=== PATIENT | female | born 1955 | race Caucasian/White ===

== ENCOUNTER 2025-03-28 23:29 | Outpatient (BNV) | payer OTHER, SELFPAY | END 2025-04-02 08:28 | PROVIDERS: Admitting Provider Psychiatry & Neurology Psychiatry; Visit Provider Radiology Vascular & Interventional Radiology | DX: K80.20 Calculus of gallbladder without cholecystitis without obstruction (principal) | CPT/HCPCS: 76705 ==

== ENCOUNTER 2025-03-28 23:29 | Outpatient (BNV) | payer OTHER, SELFPAY | END 2025-05-07 15:55 | PROVIDERS: Admitting Provider Psychiatry & Neurology Psychiatry; Visit Provider Internal Medicine Cardiovascular Disease | DX: I49.3 Ventricular premature depolarization (principal) | CPT/HCPCS: 93010 ==

== ENCOUNTER 2025-03-28 23:29 | Outpatient (BNV) | payer OTHER, SELFPAY | END 2025-04-05 10:42 | PROVIDERS: Admitting Provider Psychiatry & Neurology Psychiatry; Visit Provider Radiology Diagnostic Radiology | DX: R41.81 Age-related cognitive decline (principal) | CPT/HCPCS: 70551 ==

== ENCOUNTER 2025-03-28 23:29 | Inpatient (IN) | payer MEDICARE, SELFPAY ==
--- NOTE | ~2025-03-28 | XR_ITS ---
EXAMINATION: XR SKULL 1-3 VIEWS HISTORY: PRE MRI X-RAY PT POOR HISTORIAN R/O IMPLANT/FB COMPARISON: There are no prior studies available for comparison. FINDINGS: AP and lateral views of the skull are submitted. Osseous mineralization is normal. There is no fracture or lytic lesion. The visualized paranasal sinuses are clear. Multiple dental implants are noted. No radiopaque foreign body is identified. XR/XR skull <4V IMPRESSION: No radiopaque foreign body is identified. Electronically signed by: García Young MD 04/05/2025 11:47 AM EDT
--- NOTE | ~2025-03-28 | US_ITS ---
CLINICAL HISTORY: R O cholecystitis --- Additional Notes or Special Instructions: Pt with RUQ abd pain and elevated LFTs; OK PER ORDERING FOR EXAM TO BE DONE ON 8 2 AM, PT WILL BE NPO US abdomen limited Comparison: None provided Findings: The visualized pancreas is normal. The aorta and inferior vena cava are normal caliber. The liver is normal in size and echotexture. Benign cysts are noted. There is no intrahepatic bile duct dilatation. The common duct is 4.0 mm in diameter. The gallbladder exhibits tiny layering gallstones. No gallbladder wall thickening or pericholecystic fluid. There is no sonographic Forbes sign. The main portal vein is antegrade. The right kidney is 11.0 cm in length. 5 mm nonobstructing upper pole calculus. No ascites. IMPRESSION: Cholelithiasis without evidence of cholecystitis. This document has been electronically signed by: Corky King MD on 04/02/2025 09:24:09
--- NOTE | ~2025-03-28 | XR_ITS ---
EXAMINATION: XR CHEST 1 VIEW HISTORY: PRE MRI X-RAY PT POOR HISTORIAN R/O IMPLANT/FB COMPARISON: There are no prior studies available for comparison. FINDINGS: A single PA view of the chest is submitted. The lungs are expanded and clear. There is no pleural effusion, pneumothorax, or pulmonary vascular congestion. The heart is normal in size. The aorta is calcified. The bones are intact. No radiopaque foreign body is identified. XR/XR chest 1V IMPRESSION: Clear lungs. No radiopaque foreign body is identified. Electronically signed by: García Young MD 04/05/2025 11:46 AM EDT
--- NOTE | ~2025-03-28 | MR_ITS ---
EXAMINATION: MR BRAIN WITHOUT CONTRAST W NEUROQUANTATIVE CLINICAL INFORMATION: Cognitive impairment/memory impairment. COMPARISON: None available. TECHNIQUE: MRI of the brain was obtained using routine sequences without contrast. NEUROQUANTATIVE analysis was performed on a separate 3-D workstation and reported with this exam. Examination performed on a 1.5 Tamiko Siemens high-field unit. FINDINGS: There is moderate motion degradation on multiple pulsing sequences, this limits the sensitivity of the exam. There is no diffusion restriction. There is no intracranial hemorrhage, acute infarction, mass effect, or edema. Ventricles, sulci, and cisterns are diffusely somewhat prominent, in keeping with age advanced cerebral and cerebellar volume loss. No shift of midline. No abnormal hemosiderin deposition is identified. There are extensive scattered punctate and confluent foci of white matter T2 hyperintensity in the periventricular, subcortical, and hemispheric deep white matter, and central nayely. These foci are nonspecific but statistically most likely relate to moderate to advanced small vessel ischemic changes. Crib d'etat appearance of the basal ganglia suggestive of sequela of chronic hypertension. Midline structures appear normally formed. There is diffuse thinning of the corpus callosum. The pituitary gland appears grossly normal. Posterior fossa structures appear normal. Cerebellar tonsils are appropriately located. Major flow voids are preserved within the skull base. NEUROQUANTATIVE findings (when compared with age-matched controls): Whole brain volume correlates with 42% normative percentile. Hippocampal volume correlates with 5% normative percentile. (Hippocampal Occupancy Score correlates with 1% normative percentile.) Enterorhinal cortex volume correlates with 80% normative percentile. Temporal cortex volume correlates with 32% normative percentile. Parietal cortex volume correlates with 71% normative percentile. Frontal cortex volume correlates with 37% normative percentile. Occipital cortex volume correlates with 72% normative percentile. Please refer to the remainder of the report for additional neuroquantitative findings. The globes and orbital contents demonstrate no abnormalities. There are bilateral lens replacements. Paranasal sinuses are clear bilaterally. Nasal septum is midline without spur. The mastoids and tympanic cavities are normally aerated. Extracranial soft tissues demonstrate no abnormalities. No suspicious bone marrow changes are evident. There is a hemangioma in the right frontal bone. Atlantoaxial joint is normal. Small torus palatini. MR/MR brain wo con w neuroquant IMPRESSION: 1. No evidence of intracranial hemorrhage, acute infarction, mass effect, or edema. 2. Age advanced cerebral and cerebellar volume loss. Please refer to the above, and the full neuroquantitative report included with the examination. 3. Moderate to severe changes of small vessel ischemia. 4. Crib d'etat appearance of the basal ganglia suggestive of sequela of chronic hypertension. Electronically signed by: Ruddy Moreau MD 04/18/2025 08:28 AM EDT
--- NOTE | ~2025-03-28 | XR_ITS ---
EXAMINATION: XR ABDOMEN 1 VIEW (KUB) HISTORY: PRE MRI X-RAY PT POOR HISTORIAN R/O IMPLANT/FB COMPARISON: There are no prior studies available for comparison. FINDINGS: A single upright view of the abdomen is submitted. The bowel gas pattern is unremarkable, without evidence of mechanical obstruction. There is no free intraperitoneal gas. There are extensive vascular calcifications. There are no abnormal soft tissue masses. The bones are intact. There is no radiopaque foreign body. XR/XR abdomen 1V IMPRESSION: No radiopaque foreign body is identified. Electronically signed by: García Young MD 04/05/2025 11:45 AM EDT
--- NOTE | ~2025-03-28 | US_ITS ---
EXAMINATION: US THYROID HISTORY: ?Hyperthyroidism TECHNIQUE: Real-time grayscale ultrasound imaging was performed and images were reviewed. COMPARISON: There are no prior studies available for comparison. FINDINGS: SIZE: The right thyroid lobe measures 3.5 x 1.9 x 1.2 cm. The left thyroid lobe measures 2.7 x 1.5 x 1.1 cm. The isthmus measures 4 mm. FLOW: Flow to the gland is increased. ECHOGENICITY: The echotexture of the gland is heterogeneous. NODULES: No discrete nodules are identified. US/US thyroid IMPRESSION: Heterogeneous hypervascular thyroid gland. No discrete nodules are identified. ACR TI-RADS Guidelines TR1 (0 points): Benign. No follow-up or biopsy required TR2 (2 points): Not Suspicious. No biopsy or follow up indicated TR3 (3 points): Mildly Suspicious. FNA if >= 2.5 cm, Follow if >= 1.5 cm TR4 (4-6 points): Moderately Suspicious. FNA if >= 1.5 cm, Follow if >= 1.0 cm TR5 (>=7 points): Highly Suspicious. FNA if >= 1.0 cm, Follow if >= 0.5 cm Electronically signed by: García Young MD 04/04/2025 07:08 AM EDT
--- NOTE | 2025-03-29 | ECG_ITS ---
Test Reason : qtc Blood Pressure : */* mmHG Vent. Rate : 70 BPM Atrial Rate : 70 BPM P-R Int : 134 ms QRS Dur : 86 ms QT Int : 420 ms P-R-T Axes : 44 35 69 degrees QTcB Int : 453 ms Sinus rhythm with frequent Premature ventricular complexes Possible Left atrial enlargement Left ventricular hypertrophy ( Sokolow-Perdue , Americo product , Romhilt-Arnold ) Abnormal ECG No previous ECGs available Referred By: Ronit Agrawal Electronically Signed By: TALON BERGMAN MD
[2025-03-29 00:03] VITALS: BP 169/95; PULSE 79; RESP 16; TEMP 35.9; O2SAT 96; BMI 16.9
--- NOTE | 2025-03-29 02:47 | PC.NURSE ---
Admission Note Harriet Gustafson, a 70-year-old woman, was presented to [facility] [place] ED via ambulance from her home for increased weakness, lethargy, and inability to function, however in ED patient made suicidal statement, became agitated with one to one staff member, threw coffee, end with chemical restraint with Olanzapine 5 mg IM.? Harriet lives by herself. Though not mentioned in MR however it seems the patient is not compliant with her medication. The patient has a medical, surgical, and psychiatric history of? Hyperlipidemia, PVD, HTN, CAD, Abdominal Aortic Diseases, Non-ST elevation myocardial infarction, carotid endarterectomy, coronary angioplasty with stent, abdominal aortic aneurysm repair, hernia repair, anxiety, and depression. The patient is on Plavix but not compliant with it. History of positive Cardiac stress test. Based on long cardiac issues, patients may need EKG or complete cardiac work out.? Harriet arrived at our unit in a stretcher at 0000 on 03/29/25, on Section 12 B, with an admitting diagnosis of? Depression. She is full-code. The patient is alert and oriented, times four. Behavior pleasant, hyperverbal mostly logical, and compliant with the admission process. Denied SI/HI/AVH.? Skin assessment completed by colleague and reported no issues. Med reconciliation was completed based on ED record and patient information, pending provider?s approval. The patient takes her meds whole with water, ambulates independently, and independent of ADL care. She is continent with bowel and bladder but reported she wears pull ups ?just in case?. Labs are unremarkable. UA negative, Utox positive for Benzos.? She signed her treatment plan, safety tool, belonging sheet, and release paper only for her PCP and pharmacy, she doesn?t want to share her health information with her daughters. Dulce Maria searched. Harriet is on a 5-minute safety check.
[2025-03-29 08:06] VITALS: BP 170/102; PULSE 73; RESP 14; TEMP 36.5; O2SAT 98
[2025-03-29 08:07] VITALS: BP 135/77; PULSE 50
[2025-03-29 08:15] LABS: Hemoglobin A1C 112.1421 umol/L; Total Hemoglobin (HGBA1C) 3304.9719 umol/L
[2025-03-29 08:30] LABS: Alanine Aminotransferase 13 U/L (0-31); Albumin Level 3.5 g/dL (3.5-5.0); Alkaline Phosphatase 75 U/L (39-117); Anion Gap 11 (12-20); Aspartate Amino Transferase 25 U/L (5-31); Blood Urea Nitrogen 23 mg/dL (9-16); Calcium 8.7 mg/dL (8.4-10.2); Carbon Dioxide 27 mmol/L (22-29); Chloride 112 mmol/L (96-108); Cholesterol 139 mg/dL (<200); Creatinine Clr Calc Pharmacy 63.6; Estimated Glomerular Filt Rate > 60; HDL Cholesterol 35 mg/dL (>40); Potassium 4.2 mmol/L (3.3-5.1); Sodium 146 mmol/L (135-145); Total Protein 5.7 g/dL (6.5-8.0); Triglycerides 151 mg/dL (<150)
--- NOTE | 2025-03-29 08:32 | HO.PM.IMCN ---
History of Present Illness Data of Consult Service Date: 03/29/25 Primary Care Provider: Unknown Physician HPI Reason for consult: Admision H&P Pt is a 70-year-old female with a PMH significant for?HLD/CAD, NSTEMI 17 years ago, HTN, HFpEF, aniety, and depression who is admitted to [facility] for increasing depression with SI. Pt initially presented to [facility] for profound lethargy and inability to function at home. Workup was negative except for undetectable TSH but T3 and T4 WNL. While in the ED pt became agitated with multiple outbursts, including throwing coffee, kicking and screaming, and swearing at staff. Pt was not redirectable and required IM Zyprexa. Medical consult for admission H&P. ?Pt seen and evaluated in her room where she is resting comfortably in bed. Pt is initially somnolent but arousable. Pt is calm, cooperative, and answering appropriately. Pt keeps stating she would like to be discharged back home and does not want to be here. Otherwise has no acute medical complaints. Denies chest pain/pressure, palpitations. No fever or chills. Denies shortness or breath or difficulty breathing. No cough. Denies nausea, vomiting, abdominal pain. Labs from [facility] reviewed, significant for TSH undetectable but T3 and T4 WNL. Review of Systems Review of Systems: Negative except for that which is stated in the HPI [facility] Social History Household Members: None Housing: House Do you presently have visiting nurse or other home services: No Patient Tobacco Use Status: Current everyday Tobacco user Tobacco use type: Cigarette Smoked in Last 30 Days: Yes e-Cigarette/Vaping Use: Never Used Patient Interested in Nicotine Replacement: No Patient Given Instructions on How to Stop Smoking: No Second Hand Smoke Exposure: No Have you been hit, kicked, punched, or otherwise hurt by someone within the past year? If so, by whom?: No Do you feel safe in your current relationship?: No Is there a partner from a previous relationship who is making you feel unsafe now?: No Are you made to feel afraid or neglected: No Spiritual Healthcare Practices: Visit rastafarian intermittently Advance Directives: No Advance Directives Information Provided: Yes Advance Directives on File: No Do you have a plan to hurt others: No Plan Recently lost weight without trying: No Nutrition Risks: No Nutritional Risk Patient : No : No Poor oral hygiene: No Meds Allergies Allergy/AdvReac Type Severity Reaction Status Date / Time codeine Allergy Intermediate hives Verified 03/28/25 21:43 Active Medications: Current Medications Acetaminophen (Acetaminophen 325 Mg Tablet) 650 mg PO Q6H PRN PRN Reason: Headache/Pain, Scale 1-10 Last Admin: 03/29/25 01:15 Dose: 650 mg Al Hydroxide/Mg Hydroxide (Magnesium Hydrox/Alum Hydrox 30 Ml Oral.Susp) 30 ml PO Q6H PRN PRN Reason: Heartburn/Nausea Magnesium Hydroxide (Milk Of Magnesia 30 Ml Oral.Susp) 30 ml PO DAILY PRN PRN Reason: Constipation Nicotine Polacrilex (Nicotine Polacrilex 2 Mg Gum) 4 mg BUCCAL Q2H PRN PRN Reason: Nicotine Cravings Olanzapine (Olanzapine 5 Mg Tablet) 5 mg PO TID PRN PRN Reason: agitation Trazodone HCl (Trazodone Hcl 25 Mg Halftab) 25 mg PO BEDTIME MRX1 PRN PRN Reason: Insomnia Home Medications ?Medication ?Instructions ?Recorded ?Confirmed ?Last Taken ?Type alprazolam 1 mg tablet 1 mg PO TID 03/29/25 03/29/25 03/28/25 18:16 History esomeprazole magnesium 20 mg 20 mg PO DAILY 03/29/25 03/29/25 Unknown History capsule,delayed release (Nexium) metoprolol succinate 25 mg 25 mg PO DAILY 03/29/25 03/29/25 Unknown History tablet,extended release 24 hr (Toprol XL) rosuvastatin 40 mg tablet (Crestor) 40 mg PO DAILY 03/29/25 03/29/25 Unknown History spironolactone 25 mg tablet 25 mg PO DAILY 03/29/25 03/29/25 Unknown History venlafaxine 75 mg tablet,extended 75 mg PO QAM 03/29/25 03/29/25 Unknown History release 24 hr Physical Exam Vital Signs and Narrative: Vital Signs: Last Vital Signs Temp 97.7 F 03/29/25 08:06 Pulse 50 03/29/25 08:07 Resp 14 03/29/25 08:06 BP 135/77 03/29/25 08:07 Pulse Ox 98 03/29/25 08:06 O2 Del Method Room Air 03/29/25 08:06 BMI result Body Mass Index 16.9 General: AOx3, no acute distress. Appears weak and frail Resp: CTA bilaterally CVS: S1, S2, RRR GI: +BS, NT, no distention Skin: Warm, dry Neuro: Cranial nerves II-XII grossly intact bilaterally. Motor grossly intact bilaterally Extremities: No edema Psych: Calm, cooperative Results Labs 03/29/25 07:18 Labs: Laboratory Results - last 24 hr 03/29/25 07:18 Anion Gap 11 L Estim Creat Clear Calc 63.6 Estimated GFR > 60 Random Glucose 96 Estimat Average Glucose 105 Hemoglobin A1c % 5.3 Calcium 8.7 Total Bilirubin 0.1 AST 25 ALT 13 Alkaline Phosphatase 75 Total Protein 5.7 L Albumin 3.5 Triglycerides 151 H Cholesterol 139 LDL Cholesterol, Calc 74 HDL Cholesterol 35 L Assessment and Plan (1) Medical clearance for psychiatric admission: Status: Acute Plan Pt is a 70-year-old female with a PMH significant for?HLD/CAD, NSTEMI 17 years ago, HTN, HFpEF, aniety, and depression who is admitted to [facility] for increasing depression with SI. Pt initially presented to [facility] for profound lethargy and inability to function at home. Workup was negative except for undetectable TSH but T3 and T4 WNL. While in the ED pt became agitated with multiple outbursts, including throwing coffee, kicking and screaming, and swearing at staff. Pt was not redirectable and required IM Zyprexa. Medical consult for admission H&P. Mood disorder Plan as per psychiatry HTN Pt's BP initially noted to be elevated at 1 70/102, repeat 135/77 One other episode of transitory hypertension noted at [facility], 189/85, BP otherwise well controlled Continue metoprolol CAD/HLD Reports hx of NSTEMI 17 years ago No longer taking aspirin or Plavix, unclear if pt stopped taking on her own or at direction of caridology Continue statin Will need to follow up with cardiology for med management Subclinical hypothyroidsim Labs at [facility] with TSH undetectable but both T3 and T4 WNL No reported hx of hypothyroidism or use of levothyroxine Follow up outpatient, repeat labs in 1-2 months Currently no indication for any treatment at this time Hx of HFpEF Not in acute exacerbation Continue spironolactone Thank you for allowing us to participate in the care of this patient. Signing off at this time. Please re-consult if any acute complaints or issues arise.
--- NOTE | 2025-03-29 08:43 | HO.PSYADMNOT ---
[facility] Date of Service: 03/29/25 Chief Complaint: decompensation/ depression Sources of Information: patient interviewed, chart reviewed and crisis/core team assessment reviewed Additional Sources of Information: daughter Harriet Heredia ([phone]) [facility] Subjective Notes: [place] Warning and Section 12B Narrative: Mrs. Gustafson is a 70 year-old woman who was brought to [facility] due to weakness, profound lethargy and inability to care for herself. While at the hospital, pt noted to be combative when staff attempting to provide care and made several statements related to wanting to . Per records, pt had reported she wanted to jump off bridge and other times had reported wanting to OD on medications. Pt described to be oriented to person and place but not to situation. Pertinent labs completed include CBC mostly unremarkable without leukocytosis, no anemia (although noted elevated MCV- will check B12), CMP without electrolyte abnormality, BUN 14, Cr 0.5, LFTs wnl. Noted TSH <0.01 with normal free T4 1.5, and free T3 4.1. Utox was positive for benzodiazepine. UA without signs of UTI, grossly unremarkable. On the unit, pt has been mostly in bed. She does have a very strong smell of urine and appears somewhat disheveled. She reports she does not know why she is here and she is upset. She reports her children are helping her sell the house but she is resentful that they have not taken her to their house in the meantime. When asked about if she has concerns about her ability to function, pt reports she does not have any concerns but agrees with moving out. She does report one neighbor may have been stealing from her. She adamantly denies suicidal or homicidal ideation. She reports I never threatened to kill myself, never! This health science writer shared with patient that at other hospital she seemed to be somewhat agitated and needed medication to calm down. Pt reports she does not remember any of this. When asked about depression, she states the only feeling I have right now is being shit on by my children. She denies any recent psychiatric admission nor symptoms of depression. She reports remote hx of alcohol use but reports she has not used alcohol in more than 35 years. No s/s of psychosis or delusions. Collateral information gathered from her daughter, Harriet Heredia who reports pt has been presenting as more depressed in the past year. She reports she suspects her mother has not showered in over a year. She reports recently she went with her brother and stayed at her house. She reports house is a condemnable condition- including not having hot water, trash everywhere. Daughter reports that they check her bank statements and someone has been taking money from her mother. They suspect is neighbor who has access to pt's debit card. Daughter reports that pt was psychiatrically admitted back in 12/2024 for depression and also suicidal statements at [facility] but despite their concerns in terms of memory and cognitive they were told mother was ready for discharge. To daughter's knowledge, there hasn't been formal testing of pt's memory/cognitive. 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 Daughter reports although pt has hx of alcohol use, she has been in remission for several years. Daughter is concern that patient may not be taking medications as prescribed due to memory issues and not addiction issues. Past Psychiatric History: Inpatient: [facility] 12/2024 (depression and SI) OP: none Past medication trials: xanax, effexor Past suicide attempts: patient and daughter denied hx of. Medical Evaluation Reviewed: Yes PMFSH Family History: none Social History: Pt has been twice. 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 She has 4 adult children. She has not worked in 2 years. 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 Trauma History: denies Diagnostics Vital Signs (24Hr): Vital Signs - 24 hr 03/29/25 00:03 03/29/25 08:06 03/29/25 08:07 Temperature 96.6 F L 97.7 F Pulse Rate 79 73 50 Respiratory Rate 16 14 Blood Pressure 169/95 H 170/102 H 135/77 Pulse Oximetry 96 98 Oxygen Delivery Method Room Air Room Air BMI result Body Mass Index 16.9 Labs 03/29/25 07:18 Labs: Laboratory Results - last 48 hr 03/29/25 07:18 Sodium 146 H Potassium 4.2 Chloride 112 H Carbon Dioxide 27 Anion Gap 11 L BUN 23 H Creatinine 0.61 Estim Creat Clear Calc 63.6 Estimated GFR > 60 Random Glucose 96 Estimat Average Glucose 105 Hemoglobin A1c % 5.3 Calcium 8.7 Total Bilirubin 0.1 AST 25 ALT 13 Alkaline Phosphatase 75 Total Protein 5.7 L Albumin 3.5 Triglycerides 151 H Cholesterol 139 LDL Cholesterol, Calc 74 HDL Cholesterol 35 L Meds/Allergies Meds Home Medications ?Medication ?Instructions ?Recorded ?Confirmed ?Type alprazolam 1 mg tablet 1 mg PO TID 03/29/25 03/29/25 History esomeprazole magnesium 20 mg 20 mg PO DAILY 03/29/25 03/29/25 History capsule,delayed release (Nexium) metoprolol succinate 25 mg 25 mg PO DAILY 03/29/25 03/29/25 History tablet,extended release 24 hr (Toprol XL) rosuvastatin 40 mg tablet (Crestor) 40 mg PO DAILY 03/29/25 03/29/25 History spironolactone 25 mg tablet 25 mg PO DAILY 03/29/25 03/29/25 History venlafaxine 75 mg tablet,extended 75 mg PO QAM 03/29/25 03/29/25 History release 24 hr Allergies Allergies Allergy/AdvReac Type Severity Reaction Status Date / Time codeine Allergy Intermediate hives Verified 03/28/25 21:43 Mental Status Exam Mental Status Exam Narrative: Appearance: wearing hospital gown, thin, very poor hygiene, malodorous, in NAD Behavior: superficially cooperative Psychomotor: no agitation or retardation noted. no tremors. Speech: mostly clear, normal rate/rhythm/volume, spontaneous TP: tangential, at times circumstantial TC: wanting to go home Mood: shit on by my children Affect: slightly irritable edge SI: adamantly denies HI: denies VH/AH: no signs Delusions: no overt delusional content. Insight/judgment: impaired x 2. memory/cog: alert, oriented to place, month and year but not to situation. Significant difficulty remembering events that led to this admission. pending MOCA/ACL. Assessment & Plan Assessment & Plan (1) MDD (major depressive disorder), recurrent episode, moderate: Status: Acute Code(s): F33.1 - Major depressive disorder, recurrent, moderate (2) Cognitive impairment: Status: Acute Code(s): R41.89 - Other symptoms and signs involving cognitive functions and awareness Assessment and Plan: r/o major neurocognitive disorder affecting her ability to care for herself. Plan Mrs. Marchalsea is a 70 year-old woman who was initially brought to [facility] due to weakness, profound lethargy and inability to care for herself. While in the ED, pt presented as agitated, combative and reported SI. Daughter reports pt has been struggling to care for herself (house without hot water, in condemnable condition and pt has not showered in several months). Pt is not able to recall events leading to this admission, despite the fact that she is oriented to month, year and place. We discussed risks, benefits and alternative treatment options. Will lower dose of xanax as pt this morning was more somnolent and lethargic although she had not received xanax. Lowered to 0.5mg po TID. continue effexor er 75mg po daily. Pt noted to have BP elevated but this was one point of care- will continue to monitor. No signs of benzo withdrawal. Pending MOCA/ACL. Will also check B12 (note that although no anemia, MCV was high). Repeat of CMP shows some degree of dehydration (elevated BUN from 14 to 23)- encourage fluids. PLAN 1. Admit to S1, sect 12b, 15 minutes checks for safety 2. decrease xanax to 0.5mg po TID. continue effexor ER 75mg po daily. 3. OT assessment: MOCA/ACL. 4. aftercare planning. Patient educated on: diagnosis and medication risk/benefits Reason for continued inpatient stay Substantial Risk for: inability to function Statement Statement: I have reviewed the history and physical and performed a pertinent examination on my patient. No changes have occurred unless specified. If the History and Physical was not performed prior to admission, the Hospitalist's service will be consulted for completing the admission physical. Time Spent With Patient Time: Total time managing care of this patient today ____ minutes.
[2025-03-29 09:26] LABS: Free T4 (Free Thyroxine) 1.05 ng/dL (0.71-1.85)
[2025-03-29 09:27] VITALS: BP 170/98
[2025-03-29] MEDS: Metoprolol Succinate ER 25 MG TAB.ER.24H PO (09:28)
[2025-03-29] MEDS: Venlafaxine HCl ER 75 MG CAP.ER.24H PO (10:13)
[2025-03-29 16:28] LABS: Folate 6.7 ng/mL (> or = 4.0); Vitamin B12 504 pg/mL (200-900)
[2025-03-29 20:00] VITALS: BP 141/82; PULSE 56; RESP 18; TEMP 36.4; O2SAT 96
[2025-03-30 07:49] VITALS: BP 175/100; PULSE 60
[2025-03-30] MEDS: Metoprolol Succinate ER 25 MG TAB.ER.24H PO (07:50)
[2025-03-30] MEDS: Venlafaxine HCl ER 75 MG CAP.ER.24H PO (07:50)
[2025-03-30 15:12] VITALS: BMI 16.9
--- NOTE | 2025-03-30 15:21 | MHC.CLN ---
NUTRITION DIET=REGULAR. ADDING ENSURE TID PER CONVERSATION WITH PATIENT. SUPPLEMENT PROVIDES 1050 KCALS, 60 G PROTEIN. QUALIFIES MODERATELY MALNOURISHED IN THE CONTEXT OF CHRONIC ILLNESS. REPORTS THAT WEIGHT HAD BEEN 120# BUT NOT ABLE TO TELL TIMEFRAME. BMI=16.9 AND IS 81% OF IBW. REPORTS VERY GOOD INTAKE AT BREAKFAST AND LUNCH TODAY. FOLLOW FOR PO INTAKE. SEE CLINICAL NUTRITION ASSESSMENT 03/30/25.
--- NOTE | 2025-03-30 19:15 | P.PNPSI_ITS ---
Subjective Subjective Date of Service: 03/29/25 Reason For Visit: decompensation/ depression Subjective Notes: Section 12B Interim History: Pt upset about being here on the unit. She denies symptoms of depression or SI. She is not able to recall events leading to this admission. She is upset that daughter is concern about her. She is taking medications as prescribed. No behavioral concerns. She does not think there are any memory/cognitive concerns with her. Review of Systems Review of Systems Pt denies SOB, chest pain. No abdominal pain. No loose stools, no constipation. Mental Status Exam Mental Status Exam Narrative: Appearance: wearing hospital gown, thin, very poor hygiene, malodorous, in NAD Behavior: superficially cooperative Psychomotor: no agitation or retardation noted. no tremors. Speech: mostly clear, normal rate/rhythm/volume, spontaneous TP: tangential, at times circumstantial TC: wanting to go home Mood: shit on by my children Affect: slightly irritable edge SI: adamantly denies HI: denies VH/AH: no signs Delusions: no overt delusional content. Insight/judgment: impaired x 2. memory/cog: alert, oriented to place, month and year but not to situation. Significant difficulty remembering events that led to this admission. pending MOCA/ACL. Diagnostics Vital Signs (24Hr): Vital Signs - 24 hr 03/29/25 20:00 03/30/25 07:49 Temperature 97.5 F Pulse Rate 56 60 Respiratory Rate 18 Blood Pressure 141/82 H 175/100 H Pulse Oximetry 96 Oxygen Delivery Method Room Air BMI result Body Mass Index 16.9 Labs 03/29/25 07:18 Labs: Laboratory Results - last 48 hr 03/29/25 03/29/25 07:18 15:02 Sodium 146 H Potassium 4.2 Chloride 112 H Carbon Dioxide 27 Anion Gap 11 L BUN 23 H Creatinine 0.61 Estim Creat Clear Calc 63.6 Estimated GFR > 60 Random Glucose 96 Estimat Average Glucose 105 Hemoglobin A1c % 5.3 Calcium 8.7 Total Bilirubin 0.1 AST 25 ALT 13 Alkaline Phosphatase 75 Total Protein 5.7 L Albumin 3.5 Triglycerides 151 H Cholesterol 139 LDL Cholesterol, Calc 74 HDL Cholesterol 35 L Vitamin B12 504 Folate 6.7 TSH < 0.01 L Free T4 1.05 Medications Medications Current Medications Acetaminophen (Acetaminophen 325 Mg Tablet) 650 mg PO Q6H PRN PRN Reason: Headache/Pain, Scale 1-10 Last Admin: 03/30/25 12:31 Dose: 650 mg Al Hydroxide/Mg Hydroxide (Magnesium Hydrox/Alum Hydrox 30 Ml Oral.Susp) 30 ml PO Q6H PRN PRN Reason: Heartburn/Nausea Alprazolam (Alprazolam 0.5 Mg Tablet) 0.5 mg PO TID [facility] Last Admin: 03/30/25 15:27 Dose: Not Given Atorvastatin Calcium (Atorvastatin Calcium 80 Mg Tablet) 80 mg PO DAILY [facility] Last Admin: 03/30/25 07:50 Dose: 80 mg Magnesium Hydroxide (Milk Of Magnesia 30 Ml Oral.Susp) 30 ml PO DAILY PRN PRN Reason: Constipation Metoprolol Succinate (Metoprolol Succinate Er 25 Mg Tab.Er.24h) 25 mg PO DAILY [facility]; Protocol Last Admin: 03/30/25 07:50 Dose: 25 mg Nicotine Polacrilex (Nicotine Polacrilex 2 Mg Gum) 4 mg BUCCAL Q2H PRN PRN Reason: Nicotine Cravings Olanzapine (Olanzapine 5 Mg Tablet) 5 mg PO TID PRN PRN Reason: agitation Omeprazole (Omeprazole 20 Mg Capsule.Dr) 20 mg PO DAILY@0630 [facility] Last Admin: 03/30/25 07:50 Dose: 20 mg Spironolactone (Spironolactone 25 Mg Tablet) 25 mg PO DAILY [facility]; Protocol Last Admin: 03/30/25 07:50 Dose: 25 mg Trazodone HCl (Trazodone Hcl 25 Mg Halftab) 25 mg PO BEDTIME MRX1 PRN PRN Reason: Insomnia Venlafaxine HCl (Venlafaxine Hcl Er 75 Mg Cap.Er.24h) 75 mg PO DAILY [facility] Last Admin: 03/30/25 07:50 Dose: 75 mg Allergies Allergies Allergy/AdvReac Type Severity Reaction Status Date / Time codeine Allergy Intermediate hives Verified 03/28/25 21:43 Assessment & Plan Assessment & Plan (1) MDD (major depressive disorder), recurrent episode, moderate: Status: Acute Code(s): F33.1 - Major depressive disorder, recurrent, moderate (2) Cognitive impairment: Status: Acute Code(s): R41.89 - Other symptoms and signs involving cognitive functions and awareness Assessment and Plan: r/o major neurocognitive disorder affecting her ability to care for herself. Plan Mrs. Martinez is a 70 year-old woman who was initially brought to [facility] due to weakness, profound lethargy and inability to care for herself. While in the ED, pt presented as agitated, combative and reported SI. Daughter reports pt has been struggling to care for herself (house without hot water, in condemnable condition and pt has not showered in several months). Pt is not able to recall events leading to this admission, despite the fact that she is oriented to month, year and place. We discussed risks, benefits and alternative treatment options. Will lower dose of xanax as pt this morning was more somnolent and lethargic although she had not received xanax. Lowered to 0.5mg po TID. continue effexor er 75mg po daily. Pt noted to have BP elevated but this was one point of care- will continue to monitor. No signs of benzo withdrawal. Pending MOCA/ACL. Will also check B12 (note that although no anemia, MCV was high). Repeat of CMP shows some degree of dehydration (elevated BUN from 14 to 23)- encourage fluids. PLAN 03/29 continue current medications. Reason for continued inpatient stay Substantial Risk for: inability to function Time Spent With Patient Time: Total time managing care of this patient today ____ minutes.
[2025-03-30 20:00] VITALS: BP 124/64; PULSE 52; RESP 18; TEMP 36.4; O2SAT 97
[2025-03-31 08:53] VITALS: BP 91/50; PULSE 62; RESP 16; TEMP 36.8; O2SAT 97
[2025-03-31] MEDS: Venlafaxine HCl ER 75 MG CAP.ER.24H PO (08:59)
--- NOTE | 2025-03-31 11:59 | P.PNPSI_ITS ---
Subjective Subjective Date of Service: 03/31/25 Reason For Visit: decompensation/ depression Subjective Notes: Conditional Voluntary Healthcare Proxy: Yes Interim History: Pt slept through the night. She is not able to recall events leading to this admission. She denied depressed mood and suicidal ideation. OT attempted to complete MOCA but pt not fully participating therefore will be attempted in next few days. BP up and down. She has been visible for meals. not attending meeting. Mental Status Exam Mental Status Exam Narrative: Appearance: wearing hospital gown, thin, very poor hygiene, malodorous, in NAD Behavior: superficially cooperative Psychomotor: no agitation or retardation noted. no tremors. Speech: mostly clear, normal rate/rhythm/volume, spontaneous TP: tangential, at times circumstantial TC: wanting to go home Mood: shit on by my children Affect: slightly irritable edge SI: adamantly denies HI: denies VH/AH: no signs Delusions: no overt delusional content. Insight/judgment: impaired x 2. memory/cog: alert, oriented to place, month and year but not to situation. Significant difficulty remembering events that led to this admission. pending MOCA/ACL. Diagnostics Vital Signs (24Hr): Vital Signs - 24 hr 03/30/25 20:00 03/31/25 08:53 Temperature 97.5 F 98.2 F Pulse Rate 52 62 Respiratory Rate 18 16 Blood Pressure 124/64 91/50 L Pulse Oximetry 97 97 Oxygen Delivery Method Room Air Room Air BMI result Body Mass Index 16.9 Labs 04/01/25 13:38 04/02/25 07:21 Labs: Laboratory Results - last 48 hr 03/29/25 15:02 Vitamin B12 504 Folate 6.7 Medications Medications Current Medications Acetaminophen (Acetaminophen 325 Mg Tablet) 650 mg PO Q6H PRN PRN Reason: Headache/Pain, Scale 1-10 Last Admin: 03/31/25 08:58 Dose: 650 mg Al Hydroxide/Mg Hydroxide (Magnesium Hydrox/Alum Hydrox 30 Ml Oral.Susp) 30 ml PO Q6H PRN PRN Reason: Heartburn/Nausea Alprazolam (Alprazolam 0.5 Mg Tablet) 0.5 mg PO TID [facility] Last Admin: 03/31/25 08:58 Dose: 0.5 mg Atorvastatin Calcium (Atorvastatin Calcium 80 Mg Tablet) 80 mg PO DAILY [facility] Last Admin: 03/31/25 08:58 Dose: 80 mg Magnesium Hydroxide (Milk Of Magnesia 30 Ml Oral.Susp) 30 ml PO DAILY PRN PRN Reason: Constipation Metoprolol Succinate (Metoprolol Succinate Er 25 Mg Tab.Er.24h) 25 mg PO DAILY [facility]; Protocol Last Admin: 03/31/25 08:59 Dose: Not Given Nicotine Polacrilex (Nicotine Polacrilex 2 Mg Gum) 4 mg BUCCAL Q2H PRN PRN Reason: Nicotine Cravings Olanzapine (Olanzapine 5 Mg Tablet) 5 mg PO TID PRN PRN Reason: agitation Omeprazole (Omeprazole 20 Mg Capsule.Dr) 20 mg PO DAILY@0630 [facility] Last Admin: 03/31/25 06:12 Dose: 20 mg Spironolactone (Spironolactone 25 Mg Tablet) 25 mg PO DAILY [facility]; Protocol Last Admin: 03/31/25 08:59 Dose: Not Given Trazodone HCl (Trazodone Hcl 25 Mg Halftab) 25 mg PO BEDTIME MRX1 PRN PRN Reason: Insomnia Venlafaxine HCl (Venlafaxine Hcl Er 75 Mg Cap.Er.24h) 75 mg PO DAILY [facility] Last Admin: 03/31/25 08:59 Dose: 75 mg Allergies Allergies Allergy/AdvReac Type Severity Reaction Status Date / Time codeine Allergy Intermediate hives Verified 03/28/25 21:43 Assessment & Plan Assessment & Plan (1) MDD (major depressive disorder), recurrent episode, moderate: Status: Acute Code(s): F33.1 - Major depressive disorder, recurrent, moderate (2) Cognitive impairment: Status: Acute Code(s): R41.89 - Other symptoms and signs involving cognitive functions and awareness Assessment and Plan: r/o major neurocognitive disorder affecting her ability to care for herself. Plan Mrs. Martinez is a 70 year-old woman who was initially brought to [facility] due to weakness, profound lethargy and inability to care for herself. While in the ED, pt presented as agitated, combative and reported SI. Daughter reports pt has been struggling to care for herself (house without hot water, in condemnable condition and pt has not showered in several months). Pt is not able to recall events leading to this admission, despite the fact that she is oriented to month, year and place. We discussed risks, benefits and alternative treatment options. Will lower dose of xanax as pt this morning was more somnolent and lethargic although she had not received xanax. Lowered to 0.5mg po TID. continue effexor er 75mg po daily. Pt noted to have BP elevated but this was one point of care- will continue to monitor. No signs of benzo withdrawal. Pending MOCA/ACL. Will also check B12 (note that although no anemia, MCV was high). Repeat of CMP shows some degree of dehydration (elevated BUN from 14 to 23)- encourage fluids. PLAN 03/29 continue current medications. 03/30 continue tx. 03/31 continue tx. pt taking medications as prescribed. monitor BP isolated BP elevations followed by jerzy. Reason for continued inpatient stay Substantial Risk for: inability to function Time Spent With Patient Time: Total time managing care of this patient today ____ minutes.
[2025-03-31 20:00] VITALS: PULSE 87; RESP 14; TEMP 36.2; O2SAT 14
[2025-04-01 00:14] VITALS: BP 115/57
[2025-04-01 08:00] VITALS: BP 186/80; PULSE 73; RESP 14; TEMP 36.3; O2SAT 96
[2025-04-01] MEDS: Metoprolol Succinate ER 25 MG TAB.ER.24H PO (09:17)
[2025-04-01] MEDS: Venlafaxine HCl ER 75 MG CAP.ER.24H PO (09:18)
--- NOTE | 2025-04-01 11:25 | MHC.CLN ---
F/U DIET=REGULAR. ENSURE TID PROVIDES 1050 KCALS, 60 G PROTEIN. VARIABLE PO INTAKE X 2 DAYS, REFUSED-50%. CONTINUE TO FOLLOW FOR PO INTAKE.
--- NOTE | 2025-04-01 13:16 | P.PNIM_ITS ---
Subjective Subjective Date of Service: 04/01/25 Interval History: Patient is seen for reports of right upper quadrant abdominal pain. On exam patient is awoken from a nap. She reports some right sided abdominal pain. Her abdomen is soft, flat, positive bowel sound x4. She reports that she ate breakfast, no nausea or vomiting. She has no temp no tachycardia. Labs are pending. She denies any history of abdominal pain. She appears depressed. Describes the pain as achy, and intermittent. She has no vomiting, diarrhea, constipation, fever, bloating, anorexia, dysuria her other concerning symptoms. Denies any shortness of breath or chest pain. Review of Systems Denies any shortness of breath, chest pain, dizziness, lightheadedness, +abdominal discomfort in right side of abdomen, no guarding, nausea vomiting or diarrhea Physical Exam 2 Exam: Exam: CONST: Alert and oriented, in NAD. Well nourished HEENT: Normocephalic, atraumatic, MMM, Eyes clear, Neck supple RESP: Lungs clear, RRR even and regular HEART:,RRR, S1, S2. No murmur, no edema GI:Abdomen Soft NT, ND. + BS times four. No guarding, no firmness :Deferred SKIN: Warm dry and intact, no visible lesions or rashes NEURO:CN II-XII Intact bilaterally, Sensation intact. Speech clear PSYCH: Normal affect Vital Signs: Vital Signs: Last Vital Signs Temp 97.3 F 04/01/25 08:00 Pulse 73 04/01/25 08:00 Resp 14 04/01/25 08:00 BP 186/80 H 04/01/25 08:00 Pulse Ox 96 04/01/25 08:00 O2 Del Method Room Air 04/01/25 08:00 BMI result Body Mass Index 16.9 Objective Data Active Medications Acetaminophen (Acetaminophen 325 Mg Tablet) 650 mg PO Q6H PRN PRN Reason: Headache/Pain, Scale 1-10 Last Admin: 03/31/25 18:10 Dose: 650 mg Documented By: RONNIE Al Hydroxide/Mg Hydroxide (Magnesium Hydrox/Alum Hydrox 30 Ml Oral.Susp) 30 ml PO Q6H PRN PRN Reason: Heartburn/Nausea Alprazolam (Alprazolam 0.5 Mg Tablet) 0.5 mg PO TID [facility] Last Admin: 04/01/25 09:18 Dose: 0.5 mg Documented By: FABIOLA Atorvastatin Calcium (Atorvastatin Calcium 80 Mg Tablet) 80 mg PO DAILY [facility] Last Admin: 04/01/25 09:18 Dose: 80 mg Documented By: FABIOLA Magnesium Hydroxide (Milk Of Magnesia 30 Ml Oral.Susp) 30 ml PO DAILY PRN PRN Reason: Constipation Metoprolol Succinate (Metoprolol Succinate Er 25 Mg Tab.Er.24h) 25 mg PO DAILY [facility]; Protocol Last Admin: 04/01/25 09:17 Dose: 25 mg Documented By: FABIOLA Nicotine Polacrilex (Nicotine Polacrilex 2 Mg Gum) 4 mg BUCCAL Q2H PRN PRN Reason: Nicotine Cravings Olanzapine (Olanzapine 5 Mg Tablet) 5 mg PO TID PRN PRN Reason: agitation Omeprazole (Omeprazole 20 Mg Capsule.Dr) 20 mg PO DAILY@0630 [facility] Last Admin: 04/01/25 06:38 Dose: 20 mg Documented By: DAVID Spironolactone (Spironolactone 25 Mg Tablet) 25 mg PO DAILY [facility]; Protocol Last Admin: 04/01/25 09:17 Dose: 25 mg Documented By: FABIOLA Trazodone HCl (Trazodone Hcl 25 Mg Halftab) 25 mg PO BEDTIME MRX1 PRN PRN Reason: Insomnia Venlafaxine HCl (Venlafaxine Hcl Er 75 Mg Cap.Er.24h) 75 mg PO DAILY [facility] Last Admin: 04/01/25 09:18 Dose: 75 mg Documented By: FABIOLA Labs 03/29/25 07:18 Assessment and Plan (1) Abdominal pain: Status: Acute Plan Pt is a 70-year-old female with a PMH significant for?HLD/CAD, NSTEMI 17 years ago, HTN, HFpEF, aniety, and depression who is admitted to [facility] for increasing depression with SI. Pt initially presented to [facility] for profound lethargy and inability to function at home. Workup was negative except for undetectable TSH but T3 and T4 WNL. While in the ED pt became agitated with multiple outbursts, including throwing coffee, kicking and screaming, and swearing at staff. Pt was not redirectable and required IM Zyprexa. Seen today for abdominal pain. Mood disorder Plan as per psychiatry Abdominal pain Abdominal exam benign CBC, CMP, lipase, if any abnormalities recommend abdominal ultrasound. No indication for imaging at this time. Afebrile, no evidence of possible iunfection. No diarrhea. Appetite WNL HTN Blood pressures have been labile Continue metoprolol CAD/HLD Reports hx of NSTEMI 17 years ago No longer taking aspirin or Plavix, unclear if pt stopped taking on her own or at direction of cardiology Continue statin Will need to follow up with cardiology for med management Subclinical hypothyroidsim Labs at [facility] with TSH undetectable but both T3 and T4 WNL No reported hx of hypothyroidism or use of levothyroxine Follow up outpatient, repeat labs in 1-2 months Currently no indication for any treatment at this time Repeat labs for surveillance Hx of HFpEF Not in acute exacerbation Continue spironolactone Quality Stroke Does the patient have a stroke diagnosis?: No VTE Prior VTE?: No VTE Risk Level:: Medical - low VTE Device Contraindication: Treatment Not Indicated VTE Drug Contraindication: Treatment Not Indicated
[2025-04-01 13:59] LABS: MANUAL DIFF FLAG NO
[2025-04-01 14:15] LABS: Hematocrit 39.6 % (37.0-47.0); Hemoglobin 13.8 g/dl (12.0-16.0); Imm Gran Abs Auto 0.10 X10*3/uL (0.00-0.03); Imm Gran Pct Auto 0.8 % (0.0-0.4); Lymphocytes Absolute Auto 1.0 X10*3/uL (1.2-4.9); Mean Corpuscular HGB Conc 34.8 g/dl (31.0-35.0); Mean Corpuscular Hemoglobin 33.9 pg (27.0-33.0); Mean Corpuscular Volume 97.3 fL (80.0-98.0); NRBC Abs Auto 0.000 X10*3/uL (0.0-0.012); NRBC Pct Auto 0.0 /100WBC (0.0-0.2); Platelet Count 216 X10*3/uL (160-400); Red Blood Count 4.07 X10*6/uL (4.20-5.50); White Blood Count 11.8 X10*3/uL (4.8-10.8)
[2025-04-01 15:06] LABS: Alanine Aminotransferase 120 U/L (0-31); Albumin Level 4.1 g/dL (3.5-5.0); Alkaline Phosphatase 84 U/L (39-117); Anion Gap 14 (12-20); Aspartate Amino Transferase 123 U/L (5-31); Blood Urea Nitrogen 18 mg/dL (9-16); Calcium 9.7 mg/dL (8.4-10.2); Carbon Dioxide 26 mmol/L (22-29); Chloride 104 mmol/L (96-108); Creatinine Clr Calc Pharmacy 53.8; Estimated Glomerular Filt Rate > 60; Lipase 10 U/L (8-78); Potassium 5.0 mmol/L (3.3-5.1); Sodium 139 mmol/L (135-145); Total Protein 7.0 g/dL (6.5-8.0)
[2025-04-01 17:05] LABS: Free T4 (Free Thyroxine) 1.20 ng/dL (0.71-1.85)
--- NOTE | 2025-04-01 18:00 | PC.NURSE ---
Urine culture collected and dropped at the lab. Received call from Dr Cuevas and will schedule Ultra sound for tomorrow, but if she has any vomiting/nausea or abd discomfort to call hospitalist so she can have a CT SCan done. Complaining of headache but due to her elevated LFT's Tylenol cannot be given till reason for elevation determined she also can't take NSAID due to previous ruptured ulcer.
--- NOTE | 2025-04-01 18:03 | P.PNPSI_ITS ---
Subjective Subjective Date of Service: 04/01/25 Reason For Visit: decompensation/ depression Subjective Notes: Conditional Voluntary Interim History: Pt reports right upper quadrant pain, reports earlier some nausea, no vomiting. She is afebrile. labs ordered. CMP shows elevation in LFTs and bilirubin, normal lipase. hospitalist consult ordered. Per daughter, pt had episode of psychosis with effexor. unusual as side effect rather than sign of underlying mood disorder. no insight into concern in terms of her ability to care for herself. Medication Compliance: Yes Review of Systems Review of Systems Denies any shortness of breath, chest pain, dizziness, lightheadedness, +abdominal discomfort in right side of abdomen, no guarding, nausea vomiting or diarrhea Mental Status Exam Mental Status Exam Narrative: Appearance: wearing hospital gown, thin, very poor hygiene, malodorous, in NAD Behavior: superficially cooperative Psychomotor: no agitation or retardation noted. no tremors. Speech: mostly clear, normal rate/rhythm/volume, spontaneous TP: tangential, at times circumstantial TC: wanting to go home Mood: in pain Affect: congruent. SI: adamantly denies HI: denies VH/AH: no signs Delusions: no overt delusional content. Insight/judgment: impaired x 2. memory/cog: alert, oriented to place, month and year but not to situation. Significant difficulty remembering events that led to this admission. pending MOCA/ACL. Diagnostics Vital Signs (24Hr): Vital Signs - 24 hr 03/31/25 20:00 04/01/25 00:14 04/01/25 08:00 Temperature 97.2 F 97.3 F Pulse Rate 87 73 Respiratory Rate 14 14 Blood Pressure 115/57 L 186/80 H Pulse Oximetry 14 L 96 Oxygen Delivery Method Room Air Room Air BMI result Body Mass Index 16.9 Labs 04/01/25 13:38 04/02/25 07:21 Labs: Laboratory Results - last 48 hr 04/01/25 13:38 WBC 11.8 H RBC 4.07 L Hgb 13.8 Hct 39.6 MCV 97.3 MCH 33.9 H MCHC 34.8 RDW 14.7 Plt Count 216 MPV 11.1 Immature Gran % (Auto) 0.8 H Neut % (Auto) 75.6 H Lymph % (Auto) 8.6 L [place] % (Auto) 11.2 H Eos % (Auto) 3.3 Baso % (Auto) 0.5 Lymph # (Auto) 1.0 L [place] # (Auto) 1.3 H Eos # (Auto) 0.4 Baso # (Auto) 0.1 Abs Immat Gran (auto) 0.10 H Absolute Neuts (auto) 8.9 H Absolute Nucleated RBC 0.000 Nucleated RBC % (auto) 0.0 Sodium 139 Potassium 5.0 Chloride 104 Carbon Dioxide 26 Anion Gap 14 BUN 18 H Creatinine 0.72 Estim Creat Clear Calc 53.8 Estimated GFR > 60 Random Glucose 94 Calcium 9.7 D Total Bilirubin 1.3 H AST 123 H ALT 120 H Alkaline Phosphatase 84 Total Protein 7.0 Albumin 4.1 Lipase 10 TSH < 0.01 L Free T4 1.20 Medications Medications Current Medications Al Hydroxide/Mg Hydroxide (Magnesium Hydrox/Alum Hydrox 30 Ml Oral.Susp) 30 ml PO Q6H PRN PRN Reason: Heartburn/Nausea Alprazolam (Alprazolam 0.5 Mg Tablet) 0.5 mg PO TID [facility] Last Admin: 04/01/25 15:02 Dose: 0.5 mg Atorvastatin Calcium (Atorvastatin Calcium 80 Mg Tablet) 80 mg PO DAILY [facility] Last Admin: 04/01/25 09:18 Dose: 80 mg Magnesium Hydroxide (Milk Of Magnesia 30 Ml Oral.Susp) 30 ml PO DAILY PRN PRN Reason: Constipation Metoprolol Succinate (Metoprolol Succinate Er 25 Mg Tab.Er.24h) 25 mg PO DAILY [facility]; Protocol Last Admin: 04/01/25 09:17 Dose: 25 mg Nicotine Polacrilex (Nicotine Polacrilex 2 Mg Gum) 4 mg BUCCAL Q2H PRN PRN Reason: Nicotine Cravings Olanzapine (Olanzapine 5 Mg Tablet) 5 mg PO TID PRN PRN Reason: agitation Omeprazole (Omeprazole 20 Mg Capsule.Dr) 20 mg PO DAILY@0630 [facility] Last Admin: 04/01/25 06:38 Dose: 20 mg Spironolactone (Spironolactone 25 Mg Tablet) 25 mg PO DAILY [facility]; Protocol Last Admin: 04/01/25 09:17 Dose: 25 mg Trazodone HCl (Trazodone Hcl 25 Mg Halftab) 25 mg PO BEDTIME MRX1 PRN PRN Reason: Insomnia Venlafaxine HCl (Venlafaxine Hcl Er 37.5 Mg Cap.Er.24h) 37.5 mg PO DAILY [facility] Allergies Allergies Allergy/AdvReac Type Severity Reaction Status Date / Time codeine Allergy Intermediate hives Verified 03/28/25 21:43 Assessment & Plan Assessment & Plan (1) MDD (major depressive disorder), recurrent episode, moderate: Status: Acute Code(s): F33.1 - Major depressive disorder, recurrent, moderate (2) Cognitive impairment: Status: Acute Code(s): R41.89 - Other symptoms and signs involving cognitive functions and awareness Assessment and Plan: r/o major neurocognitive disorder affecting her ability to care for herself. Plan Mrs. Martinez is a 70 year-old woman who was initially brought to [facility] due to weakness, profound lethargy and inability to care for herself. While in the ED, pt presented as agitated, combative and reported SI. Daughter reports pt has been struggling to care for herself (house without hot water, in condemnable condition and pt has not showered in several months). Pt is not able to recall events leading to this admission, despite the fact that she is oriented to month, year and place. We discussed risks, benefits and alternative treatment options. Will lower dose of xanax as pt this morning was more somnolent and lethargic although she had not received xanax. Lowered to 0.5mg po TID. continue effexor er 75mg po daily. Pt noted to have BP elevated but this was one point of care- will continue to monitor. No signs of benzo withdrawal. Pending MOCA/ACL. Will also check B12 (note that although no anemia, MCV was high). Repeat of CMP shows some degree of dehydration (elevated BUN from 14 to 23)- encourage fluids. PLAN 04/01 reports RUQ abdominal pain, CMP with elevated LFTs and bilirubin, lipase wnl. ordered hospitalist consult. Reason for continued inpatient stay Substantial Risk for: inability to function Time Spent With Patient Time: Total time managing care of this patient today ____ minutes.
[2025-04-01 20:00] VITALS: BP 214/88; PULSE 45; RESP 16; TEMP 36.6; O2SAT 96
[2025-04-01 21:00] VITALS: BP 180/80; PULSE 45
[2025-04-01 22:25] VITALS: BP 180/80
--- NOTE | 2025-04-01 22:27 | PM.EVENT ---
Event Note Date of Service: 04/01/25 Event Note: notified pt's BPs have been elevated, chart shows labile BPs. BP earlier today 186/80, currently 214/88, manual 186/80. will give 1x dose amlodipine 5mg and day team to follow in AM. case discussed with Dr Khanna Time Spent With Patient Time: Total time managing care of this patient today ____ minutes.
[2025-04-02 07:47] LABS: Alanine Aminotransferase 158 U/L (0-31); Albumin Level 4.0 g/dL (3.5-5.0); Alkaline Phosphatase 126 U/L (39-117); Anion Gap 13 (12-20); Aspartate Amino Transferase 158 U/L (5-31); Blood Urea Nitrogen 18 mg/dL (9-16); Calcium 9.6 mg/dL (8.4-10.2); Carbon Dioxide 24 mmol/L (22-29); Chloride 106 mmol/L (96-108); Creatinine Clr Calc Pharmacy 68.0; Estimated Glomerular Filt Rate > 60; Potassium 4.3 mmol/L (3.3-5.1); Sodium 139 mmol/L (135-145); Total Protein 6.9 g/dL (6.5-8.0)
--- NOTE | 2025-04-02 08:41 | P.PNPSI_ITS ---
Subjective Subjective Date of Service: 04/02/25 Reason For Visit: decompensation/ depression Subjective Notes: Conditional Voluntary Healthcare Proxy: No Guardianship: No Medical Problems Affecting Mental Status: Yes (numerous things possible- thyroid ? , hep c? ) Interim History: 70 yo with decompensation around selling her house and feeling betrayed by her children (not taking her in) As well as labile bp readings, subclinical hyperthyroidism and hepatic changes with mild abd pain- hx weight loss- Also hx of cognitive changes- lost job 2 years ago - Cooperative with nursing and medical procedures s/p US of abd- Medication Compliance: Yes Side effects from medications: No (though hospitalist wondered if lfts up from meds, but has tested + hep c, ) Attending Groups: No Review of Systems Acute medical concerns: Yes see above- whether these are effecting mental status is ? other than maybe fatigue and apt- Medical Review of Systems: unchanged Mental Status Exam Mental Status Exam Patient Appearance: Appropriate Patient Orientation: Person, Place and Situation Level of Consciousness: Awake and Appropriate Patient Behavior: Appropriate, Passive and Good Eye Contact Mood Description: Calm Affect Description: Appropriate Patient Cognition Impaired: Yes Ability to Follow Directions: Fair Speech Pattern: Clear Hallucinations: None Delusions: Not Present Thought Content: positive for Intact and positive for Goal Oriented Depressive Symptoms: Increased Anxiety, Changes in Appetite, Significant Weight Loss and Loss of Energy Judgement: Fair Diagnostics Vital Signs (24Hr): Vital Signs - 24 hr 04/01/25 20:00 04/01/25 21:00 04/01/25 22:25 Temperature 97.9 F Pulse Rate 45 L 45 L Respiratory Rate 16 Blood Pressure 214/88 H 180/80 H 180/80 H Pulse Oximetry 96 Oxygen Delivery Method Room Air BMI result Body Mass Index 16.9 Labs 04/01/25 13:38 04/02/25 07:21 Labs: Laboratory Results - last 48 hr 04/01/25 04/02/25 13:38 07:21 WBC 11.8 H RBC 4.07 L Hgb 13.8 Hct 39.6 MCV 97.3 MCH 33.9 H MCHC 34.8 RDW 14.7 Plt Count 216 MPV 11.1 Immature Gran % (Auto) 0.8 H Neut % (Auto) 75.6 H Lymph % (Auto) 8.6 L [place] % (Auto) 11.2 H Eos % (Auto) 3.3 Baso % (Auto) 0.5 Lymph # (Auto) 1.0 L [place] # (Auto) 1.3 H Eos # (Auto) 0.4 Baso # (Auto) 0.1 Abs Immat Gran (auto) 0.10 H Absolute Neuts (auto) 8.9 H Absolute Nucleated RBC 0.000 Nucleated RBC % (auto) 0.0 Sodium 139 139 Potassium 5.0 4.3 Chloride 104 106 Carbon Dioxide 26 24 Anion Gap 14 13 BUN 18 H 18 H Creatinine 0.72 0.57 Estim Creat Clear Calc 53.8 68.0 Estimated GFR > 60 > 60 Random Glucose 94 111 Calcium 9.7 D 9.6 Total Bilirubin 1.3 H 1.4 H AST 123 H 158 H ALT 120 H 158 H Alkaline Phosphatase 84 126 H Total Protein 7.0 6.9 Albumin 4.1 4.0 Lipase 10 TSH < 0.01 L Free T4 1.20 Free T3 4.9 H Medications Medications Current Medications Al Hydroxide/Mg Hydroxide (Magnesium Hydrox/Alum Hydrox 30 Ml Oral.Susp) 30 ml PO Q6H PRN PRN Reason: Heartburn/Nausea Alprazolam (Alprazolam 0.5 Mg Tablet) 0.5 mg PO TID [facility] Last Admin: 04/01/25 21:29 Dose: 0.5 mg Atorvastatin Calcium (Atorvastatin Calcium 80 Mg Tablet) 80 mg PO DAILY [facility] Last Admin: 04/01/25 09:18 Dose: 80 mg Magnesium Hydroxide (Milk Of Magnesia 30 Ml Oral.Susp) 30 ml PO DAILY PRN PRN Reason: Constipation Metoprolol Succinate (Metoprolol Succinate Er 25 Mg Tab.Er.24h) 25 mg PO DAILY [facility]; Protocol Last Admin: 04/01/25 09:17 Dose: 25 mg Nicotine Polacrilex (Nicotine Polacrilex 2 Mg Gum) 4 mg BUCCAL Q2H PRN PRN Reason: Nicotine Cravings Olanzapine (Olanzapine 5 Mg Tablet) 5 mg PO TID PRN PRN Reason: agitation Omeprazole (Omeprazole 20 Mg Capsule.Dr) 20 mg PO DAILY@0630 [facility] Last Admin: 04/02/25 06:16 Dose: Not Given Spironolactone (Spironolactone 25 Mg Tablet) 25 mg PO DAILY [facility]; Protocol Last Admin: 04/01/25 09:17 Dose: 25 mg Trazodone HCl (Trazodone Hcl 25 Mg Halftab) 25 mg PO BEDTIME MRX1 PRN PRN Reason: Insomnia Venlafaxine HCl (Venlafaxine Hcl Er 37.5 Mg Cap.Er.24h) 37.5 mg PO DAILY [facility] Allergies Allergies Allergy/AdvReac Type Severity Reaction Status Date / Time codeine Allergy Intermediate hives Verified 03/28/25 21:43 Assessment & Plan Assessment & Plan (1) Abdominal pain: Status: Acute Code(s): R10.9 - Unspecified abdominal pain Assessment and Plan: 04/02 ordered gi consult as per hospitalist suggestion (2) MDD (major depressive disorder), recurrent episode, moderate: Status: Acute Code(s): F33.1 - Major depressive disorder, recurrent, moderate Assessment and Plan: 8.2 daughter reports hx venlafaxine causing psychotic episode in past? has been lowered to 37.5mg - certainly not causing hep c or cholelithiasis- (3) Cognitive impairment: Status: Acute Code(s): R41.89 - Other symptoms and signs involving cognitive functions and awareness Assessment and Plan: MOCA still pending pt cooperation Plan Pt is a 70-year-old female with a PMH significant for?HLD/CAD, NSTEMI 17 years ago, HTN, HFpEF, aniety, and depression who is admitted to [facility] for increasing depression with SI. Pt initially presented to [facility] for profound lethargy and inability to function at home. Workup was negative except for undetectable TSH but T3 and T4 WNL. While in the ED pt became agitated with multiple outbursts, including throwing coffee, kicking and screaming, and swearing at staff. Pt was not redirectable and required IM Zyprexa. Seen today for abdominal pain. Mood disorder Plan as per psychiatry Abdominal pain Abdominal exam benign CBC, CMP, lipase, if any abnormalities recommend abdominal ultrasound. No indication for imaging at this time. Afebrile, no evidence of possible iunfection. No diarrhea. Appetite WNL HTN Blood pressures have been labile Continue metoprolol CAD/HLD Reports hx of NSTEMI 17 years ago No longer taking aspirin or Plavix, unclear if pt stopped taking on her own or at direction of cardiology Continue statin Will need to follow up with cardiology for med management Subclinical hypothyroidsim Labs at [facility] with TSH undetectable but both T3 and T4 WNL No reported hx of hypothyroidism or use of levothyroxine Follow up outpatient, repeat labs in 1-2 months Currently no indication for any treatment at this time Repeat labs for surveillance Hx of HFpEF Not in acute exacerbation Continue spironolactone 04/02- CTP get gi consult , continue observation , consider dc venlafaxine, also continue monitor bp - and physical symptoms Patient educated on: medical condition Informed Consent: understands Reason for continued inpatient stay Substantial Risk for: rapid decompensation and med/psych decompensation Time Spent With Patient Time: Total time managing care of this patient today ____ minutes.
[2025-04-02 09:12] VITALS: BP 152/72; PULSE 89; RESP 16; TEMP 36.1; O2SAT 95
[2025-04-02] MEDS: Metoprolol Succinate ER 25 MG TAB.ER.24H PO (09:22)
[2025-04-02] MEDS: Venlafaxine HCl ER 37.5 MG CAP.ER.24H PO (09:22)
[2025-04-02 11:04] LABS: HBS Num1 7.28 mIU/mL (0-7.99); HBc Num1 0.04 S/CO (0.00-0.79); HBsAGNum1 0.32 S/CO (0.00-0.99); Hepatitis A Antibody IgM 0.17 Index (0-0.79); Hepatitis B Surface Antigen Negative (Negative); ~HepC Num1 12.16 S/CO (0.00-0.79); ~Hepatitis A Antibody IgM Nonreactive (Nonreactive); ~Hepatitis B Surface Antibody NONREACTIVE (Nonreactive); ~Hepatitis C Antibody Reactive (Nonreactive)
--- NOTE | 2025-04-02 13:21 | P.EN_ITS ---
Event Note Date of Service: 04/02/25 Event Note: Follow up for 70-year-old female admitted to [facility] with multiple complaints. Pt has been experiencing RUQ abdominal pain. Abdominal exam is has been benign and pt has been able to tolerate diet without N/V. Abdominal ultrasound showing cholelithiasis without evidence of cholecystitis. CBD nondilated, diameter WNL. LFTs continue to mildly increase, currently T bili 1.4, AST 158, AST 158, and alk-phos 126. Possibly iatrogenic for medication. Consider GI consult for additional evaluation and workup. Pt has also been noted to have likely subclinical hyperthyroidism with undetectable TSH and free T4 WNL; free T3 mildly elevated at 4.9. Will get th yroid ultrasound and check thyroid stimulating immunoglobulin and Thyrotropin Receptor Antibodies to evaluate for Grave's disease. No indication yet to start methimazole. Time Spent With Patient Time: Total time managing care of this patient today ____ minutes.
[2025-04-02 16:52] LABS: Vitamin D 25-OH, D2 <4 ng/mL; Vitamin D 25-OH, D3 21 ng/mL; Vitamin D 25-OH, Total 21 ng/mL (30-100)
[2025-04-02 18:43] VITALS: BP 172/62
[2025-04-02 20:00] VITALS: BP 168/70; PULSE 56; RESP 16; TEMP 36.8; O2SAT 96
--- NOTE | 2025-04-03 07:47 | P.CNGI_ITS ---
History of Present Illness Data of Consult Service Date: 04/03/25 Requesting physician: Sameera Parmar Primary Care Provider: Unknown Physician HPI Reason for consult: elevated LFTs, abd pain This is a 70-year-old female with past medical history of MDD, who is here from [facility] for decompensation and reported suicidal ideation. Gastroenterology has been consulted for abdominal pain with elevated LFTs. Patient seen at bedside and reports that she only had 1 time episode of abdominal discomfort yesterday that lasted for a few hours and resolve within the same day. Not associated with nausea or vomiting. She does report loss of appetite that she attributes to her mood and wanting to stay here. Does not report a similar pain in the past. Labs with elevated LFTs in a hepatocellular pattern. AST and ALT more than 10 times upper limit normal. Ultrasound abdomen done 04/02 shows normal appearance of liver and gallbladder. No choledocholithiasis but she does have cholelithiasis. A HIDA scan was initially ordered, which had to be postponed today due to labs and NPO status. Review of Systems 2 Review of Systems: Yes all other systems are reviewed and are negative [facility] Social History Social History Household Members: None Housing: House Do you presently have visiting nurse or other home services: No Comment: 5 minute checks Patient Tobacco Use Status: Current everyday Tobacco user Tobacco use type: Cigarette Smoked in Last 30 Days: Yes e-Cigarette/Vaping Use: Never Used Patient Interested in Nicotine Replacement: No Patient Given Instructions on How to Stop Smoking: No Second Hand Smoke Exposure: No Currently Displaying Signs/Symptoms of Drug Intoxication Withdrawal: No Have you been hit, kicked, punched, or otherwise hurt by someone within the past year? If so, by whom?: No Do you feel safe in your current relationship?: No Is there a partner from a previous relationship who is making you feel unsafe now?: No Are you made to feel afraid or neglected: No Spiritual Healthcare Practices: Visit baptism intermittently Advance Directives: No Advance Directives Information Provided: Yes Advance Directives on File: No Do you have thoughts of harming others: None Do you have a plan to hurt others: No Plan Recently lost weight without trying: No Nutrition Risks: No Nutritional Risk Patient : No : No Poor oral hygiene: No service: No Sexual orientation: Straight/Heterosexual Meds Allergies Allergy/AdvReac Type Severity Reaction Status Date / Time codeine Allergy Intermediate hives Verified 03/28/25 21:43 Active Medications: Current Medications Al Hydroxide/Mg Hydroxide (Magnesium Hydrox/Alum Hydrox 30 Ml Oral.Susp) 30 ml PO Q6H PRN PRN Reason: Heartburn/Nausea Alprazolam (Alprazolam 0.5 Mg Tablet) 0.5 mg PO TID [facility] Last Admin: 04/02/25 21:03 Dose: 0.5 mg Amlodipine Besylate (Amlodipine Besylate 5 Mg Tablet) 5 mg PO DAILY [facility]; Protocol Atorvastatin Calcium (Atorvastatin Calcium 80 Mg Tablet) 80 mg PO DAILY [facility] Last Admin: 04/02/25 09:22 Dose: 80 mg Ibuprofen (Ibuprofen 400 Mg Tablet) 400 mg PO Q6H PRN PRN Reason: Pain, Moderate(Pain Scale 4-6) Last Admin: 04/02/25 17:48 Dose: 400 mg Magnesium Hydroxide (Milk Of Magnesia 30 Ml Oral.Susp) 30 ml PO DAILY PRN PRN Reason: Constipation Metoprolol Succinate (Metoprolol Succinate Er 25 Mg Tab.Er.24h) 25 mg PO DAILY [facility]; Protocol Last Admin: 04/02/25 09:22 Dose: 25 mg Nicotine Polacrilex (Nicotine Polacrilex 2 Mg Gum) 4 mg BUCCAL Q2H PRN PRN Reason: Nicotine Cravings Olanzapine (Olanzapine 5 Mg Tablet) 5 mg PO TID PRN PRN Reason: agitation Omeprazole (Omeprazole 20 Mg Capsule.Dr) 20 mg PO DAILY@0630 [facility] Last Admin: 04/03/25 06:21 Dose: 20 mg Spironolactone (Spironolactone 25 Mg Tablet) 25 mg PO DAILY [facility]; Protocol Last Admin: 04/02/25 09:22 Dose: 25 mg Trazodone HCl (Trazodone Hcl 25 Mg Halftab) 25 mg PO BEDTIME MRX1 PRN PRN Reason: Insomnia Venlafaxine HCl (Venlafaxine Hcl Er 37.5 Mg Cap.Er.24h) 37.5 mg PO DAILY [facility] Last Admin: 04/02/25 09:22 Dose: 37.5 mg Home Medications ?Medication ?Instructions ?Recorded ?Confirmed ?Last Taken ?Type alprazolam 1 mg tablet 1 mg PO TID 03/29/252 5 03/28/25 18:16 History esomeprazole magnesium 20 mg 20 mg PO DAILY 03/29/25 0 03/29/25 Unknown History capsule,delayed release (Nexium) metoprolol succinate 25 mg 25 mg PO DAILY 03/29/25 Unknown History tablet,extended release 24 hr (Toprol XL) rosuvastatin 40 mg tablet (Crestor) 40 mg PO DAILY 03/29/25 Unknown History spironolactone 25 mg tablet 25 mg PO DAILY 03/29/25 Unknown History venlafaxine 75 mg tablet,extended 75 mg PO QAM 5 03/29/25 Unknown History release 24 hr Physical Exam 2 Exam: Exam: Frail elderly female Nonicteric Alert and oriented x3, abdomen soft, nondistended, nontender, no guarding No lower extremity edema Vital Signs: Vital Signs: Last Vital Signs Temp 98.3 F 04/02/25 20:00 Pulse 56 04/02/25 20:00 Resp 16 04/02/25 20:00 BP 168/70 H 04/02/25 20:00 Pulse Ox 96 04/02/25 20:00 O2 Del Method Room Air 04/02/25 20:00 BMI result Body Mass Index 16.9 Results Labs 04/01/25 13:38 04/04/25 10:11 Labs: BMP 04/02/25 07:21 Sodium 139 Potassium 4.3 Chloride 106 Carbon Dioxide 24 BUN 18 H Creatinine 0.57 Calcium 9.6 Liver Function 04/02/25 Range/Units 07:21 Total Bilirubin 1.4 H (0.0-1.0) mg/dL AST 158 H (5-31) U/L ALT 158 H (0-31) U/L Alkaline Phosphatase 126 H (39-117) U/L Albumin 4.0 (3.5-5.0) g/dL Microbiology Microbiology Results: Microbiology 04/01/25 17:15 Urine clean catch - Clean Catch Midstream Urine Culture - Preliminary Culture too young to evaluate. Assessment and Plan (1) Abdominal pain: Status: Acute (2) Elevated LFTs: Status: Acute Plan Differentials for 1 time episode of abdominal discomfort in the context of elevated LFTs includes symptomatic cholelithiasis, cholecystitis, passed stone, gastritis/duodenitis, biliary colic. Other differential includes drug-induced liver injury with unrelated abdominal pain. At this point, patient would like to hold off on further testing, she feels back to her baseline. This is reasonable, since LFTs are also trending down. However, if pain recurs or LFTs start to up trend, low threshold to reorder HIDA scan. Plan of care discussed with the bedside nursing. Thank you for allowing me to participate in her care. Please do not hesitate to reach out for any questions or concerns. Procedures Date of Service Date of Service: 04/04/25
[2025-04-03 08:00] VITALS: BP 170/64; PULSE 51; RESP 18; TEMP 36.5; O2SAT 97
[2025-04-03 08:51] VITALS: BP 170/64
[2025-04-03] MEDS: Venlafaxine HCl ER 37.5 MG CAP.ER.24H PO (08:51)
[2025-04-03 08:52] VITALS: BP 170/64; PULSE 51
[2025-04-03] MEDS: Metoprolol Succinate ER 25 MG TAB.ER.24H PO (08:52)
[2025-04-03 08:53] VITALS: BP 170/64
--- NOTE | 2025-04-03 12:21 | P.PNPSI_ITS ---
Subjective Subjective Date of Service: 04/03/25 Reason For Visit: decompensation/ depression Subjective Notes: Conditional Voluntary Healthcare Proxy: No Guardianship: No Medical Problems Affecting Mental Status: Yes Interim History: 70 yo with ongoing medical work up - recent episode of mood dysregulation/confusion that occurred around sale of her house with no where to go - or the option presented by daughter to live in an apartment in [place] near her does not feel like option she wanted- disappointed=- In the mean time patient has had htn here, as well as afew other medical lab abnormalties- that are being worked up given bp and pt hx of poor reaction to effexor will dc it- 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 [place] and would like to consult him about bp Medication Compliance: Yes Side effects from medications: No Attending Groups: No Review of Systems Acute medical concerns: Yes possible weight loss, abd pain- dec appetite- Medical Review of Systems: unchanged Mental Status Exam Mental Status Exam Narrative: sitting up in bed resting patient says Patient Appearance: Well Grooomed and Appropriate Patient Orientation: Person, Place and Situation Level of Consciousness: Awake and Alert Patient Behavior: Cooperative, Passive and Good Eye Contact Mood Description: Calm and Apathetic Affect Description: Appropriate Patient Cognition Impaired: Yes Ability to Follow Directions: Fair Speech Pattern: Clear Hallucinations: None Delusions: Not Present Thought Process: Intact and Goal Oriented Thought Content: positive for Preoccupation Depressive Symptoms: Increased Anxiety, Changes in Appetite and Significant Weight Loss Judgement: Fair Diagnostics Vital Signs (24Hr): Vital Signs - 24 hr 04/02/25 18:43 04/02/25 20:00 04/03/25 08:00 Temperature 98.3 F 97.7 F Pulse Rate 56 51 Respiratory Rate 16 18 Blood Pressure 172/62 H 168/70 H 170/64 H Pulse Oximetry 96 97 Oxygen Delivery Method Room Air Room Air 04/03/25 08:51 04/03/25 08:52 04/03/25 08:53 Temperature Pulse Rate 51 Respiratory Rate Blood Pressure 170/64 H 170/64 H 170/64 H Pulse Oximetry Oxygen Delivery Method BMI result Body Mass Index 16.9 Labs 04/01/25 13:38 04/02/25 07:21 Labs: Laboratory Results - last 48 hr 03/29/25 04/01/25 04/02/25 15:02 13:38 07:21 WBC 11.8 H RBC 4.07 L Hgb 13.8 Hct 39.6 MCV 97.3 MCH 33.9 H MCHC 34.8 RDW 14.7 Plt Count 216 MPV 11.1 Immature Gran % (Auto) 0.8 H Neut % (Auto) 75.6 H Lymph % (Auto) 8.6 L Riley % (Auto) 11.2 H Eos % (Auto) 3.3 Baso % (Auto) 0.5 Lymph # (Auto) 1.0 L Riley # (Auto) 1.3 H Eos # (Auto) 0.4 Baso # (Auto) 0.1 Abs Immat Gran (auto) 0.10 H Absolute Neuts (auto) 8.9 H Absolute Nucleated RBC 0.000 Nucleated RBC % (auto) 0.0 Sodium 139 139 Potassium 5.0 4.3 Chloride 104 106 Carbon Dioxide 26 24 Anion Gap 14 13 BUN 18 H 18 H Creatinine 0.72 0.57 Estim Creat Clear Calc 53.8 68.0 Estimated GFR > 60 > 60 Random Glucose 94 111 Calcium 9.7 D 9.6 Total Bilirubin 1.3 H 1.4 H AST 123 H 158 H ALT 120 H 158 H Alkaline Phosphatase 84 126 H Total Protein 7.0 6.9 Albumin 4.1 4.0 Lipase 10 25-OH Vitamin D Total 21 L 25-Hydroxy Vitamin D2 <4 25-Hydroxy Vitamin D3 21 TSH < 0.01 L Free T4 1.20 Free T3 4.9 H Hepatitis A IgM Ab Hep Bs Antigen Hep Bs Antibody Hep B Core Total Ab Hepatitis C Ab (EIA) Hep C Viral Load Hep C Viral Load Log 04/02/25 04/03/25 10:00 07:58 WBC RBC Hgb Hct MCV MCH MCHC RDW Plt Count MPV Immature Gran % (Auto) Neut % (Auto) Lymph % (Auto) Riley % (Auto) Eos % (Auto) Baso % (Auto) Lymph # (Auto) Riley # (Auto) Eos # (Auto) Baso # (Auto) Abs Immat Gran (auto) Absolute Neuts (auto) Absolute Nucleated RBC Nucleated RBC % (auto) Sodium Potassium Chloride Carbon Dioxide Anion Gap BUN Creatinine Estim Creat Clear Calc Estimated GFR Random Glucose Calcium Total Bilirubin AST ALT Alkaline Phosphatase Total Protein Albumin Lipase 25-OH Vitamin D Total 25-Hydroxy Vitamin D2 25-Hydroxy Vitamin D3 TSH Free T4 Free T3 Hepatitis A IgM Ab Nonreactive Hep Bs Antigen Negative Hep Bs Antibody NONREACTIVE Hep B Core Total Ab Nonreactive Hepatitis C Ab (EIA) Reactive H Hep C Viral Load Cancelled Hep C Viral Load Log Cancelled Medications Medications Current Medications Al Hydroxide/Mg Hydroxide (Magnesium Hydrox/Alum Hydrox 30 Ml Oral.Susp) 30 ml PO Q6H PRN PRN Reason: Heartburn/Nausea Alprazolam (Alprazolam 0.5 Mg Tablet) 0.5 mg PO TID [facility] Last Admin: 04/03/25 08:51 Dose: 0.5 mg Amlodipine Besylate (Amlodipine Besylate 5 Mg Tablet) 5 mg PO DAILY [facility]; Protocol Last Admin: 04/03/25 08:53 Dose: 5 mg Atorvastatin Calcium (Atorvastatin Calcium 80 Mg Tablet) 80 mg PO DAILY [facility] Last Admin: 04/03/25 08:51 Dose: 80 mg Ibuprofen (Ibuprofen 400 Mg Tablet) 400 mg PO Q6H PRN PRN Reason: Pain, Moderate(Pain Scale 4-6) Last Admin: 04/02/25 17:48 Dose: 400 mg Magnesium Hydroxide (Milk Of Magnesia 30 Ml Oral.Susp) 30 ml PO DAILY PRN PRN Reason: Constipation Metoprolol Succinate (Metoprolol Succinate Er 25 Mg Tab.Er.24h) 25 mg PO DAILY [facility]; Protocol Last Admin: 04/03/25 08:52 Dose: 25 mg Nicotine Polacrilex (Nicotine Polacrilex 2 Mg Gum) 4 mg BUCCAL Q2H PRN PRN Reason: Nicotine Cravings Olanzapine (Olanzapine 5 Mg Tablet) 5 mg PO TID PRN PRN Reason: agitation Omeprazole (Omeprazole 20 Mg Capsule.Dr) 20 mg PO DAILY@0630 [facility] Last Admin: 04/03/25 06:21 Dose: 20 mg Spironolactone (Spironolactone 25 Mg Tablet) 25 mg PO DAILY [facility]; Protocol Last Admin: 04/03/25 08:51 Dose: 25 mg Trazodone HCl (Trazodone Hcl 25 Mg Halftab) 25 mg PO BEDTIME MRX1 PRN PRN Reason: Insomnia Venlafaxine HCl (Venlafaxine Hcl Er 37.5 Mg Cap.Er.24h) 37.5 mg PO DAILY [facility] Last Admin: 04/03/25 08:51 Dose: 37.5 mg Allergies Allergies Allergy/AdvReac Type Severity Reaction Status Date / Time codeine Allergy Intermediate hives Verified 03/28/25 21:43 Assessment & Plan Assessment & Plan (1) Abdominal pain: Status: Acute Code(s): R10.9 - Unspecified abdominal pain Assessment and Plan: 04/02 ordered gi consult as per hospitalist suggestion (2) MDD (major depressive disorder), recurrent episode, moderate: Status: Acute Code(s): F33.1 - Major depressive disorder, recurrent, moderate Assessment and Plan: 8.2 daughter reports hx venlafaxine causing psychotic episode in past? has been lowered to 37.5mg - certainly not causing hep c or cholelithiasis- (3) Cognitive impairment: Status: Acute Code(s): R41.89 - Other symptoms and signs involving cognitive functions and awareness Assessment and Plan: MOCA still pending pt cooperation Plan Pt is a 70-year-old female with a PMH significant for?HLD/CAD, NSTEMI 17 years ago, HTN, HFpEF, aniety, and depression who is admitted to [facility] for increasing depression with SI. Pt initially presented to [facility] for profound lethargy and inability to function at home. Workup was negative except for undetectable TSH but T3 and T4 WNL. While in the ED pt became agitated with multiple outbursts, including throwing coffee, kicking and screaming, and swearing at staff. Pt was not redirectable and required IM Zyprexa. Seen today for abdominal pain. Mood disorder Plan as per psychiatry Abdominal pain Abdominal exam benign CBC, CMP, lipase, if any abnormalities recommend abdominal ultrasound. No indication for imaging at this time. Afebrile, no evidence of possible iunfection. No diarrhea. Appetite WNL HTN Blood pressures have been labile Continue metoprolol CAD/HLD Reports hx of NSTEMI 17 years ago No longer taking aspirin or Plavix, unclear if pt stopped taking on her own or at direction of cardiology Continue statin Will need to follow up with cardiology for med management Subclinical hypothyroidsim Labs at [facility] with TSH undetectable but both T3 and T4 WNL No reported hx of hypothyroidism or use of levothyroxine Follow up outpatient, repeat labs in 1-2 months Currently no indication for any treatment at this time Repeat labs for surveillance Hx of HFpEF Not in acute exacerbation Continue spironolactone 04/02- CTP get gi consult , continue observation , consider dc venlafaxine, also continue monitor bp - and physical symptoms 04/03 gi consult appreciated, dc venlafaxine continue to follow psych/cog and medical sys Patient educated on: medication risk/benefits and medical condition Informed Consent: understands and further education needed Reason for continued inpatient stay Substantial Risk for: rapid decompensation and med/psych decompensation Time Spent With Patient Time: Total time managing care of this patient today ____ minutes.
[2025-04-03 12:49] VITALS: BP 144/70
[2025-04-03 19:49] VITALS: BP 150/70; PULSE 52; RESP 18; TEMP 37; O2SAT 95
--- NOTE | 2025-04-04 08:55 | P.PNPSI_ITS ---
Subjective Subjective Date of Service: 04/04/25 Reason For Visit: decompensation/ depression Subjective Notes: Conditional Voluntary Healthcare Proxy: Yes Interim History: Pt presents as tearful thinking her adult children are leaving her here, despite multiple times explaning that we want to complete cognitive/memory assessments as there is significant concern in terms of her ability to care for herself. She tends to think children are fabricating information, but it is evident that even here on the unit, other than knowing she is in the hospital and in a psychiatric unit, not able to retain more detail information as to testing pending and other concerns. LFTs continue to trend up, GI following, she denies any abdominal pain and does not remember she had reported UQ R pain not lower pelvic pain. She seems confused and tendency to become suspicious with her children. I do suspect this is in relationship to underlying cognitive disorder. Pending MOCA. Until LFTs/ Bilirubin not going down will hold on starting new medications- including antidepressant (maybe sertraline) and low dose antipsychotic. Mental Status Exam Mental Status Exam Narrative: Appearance: wearing hospital gown, thin, very poor hygiene, malodorous, in NAD Behavior: superficially cooperative Psychomotor: no agitation or retardation noted. no tremors. Speech: mostly clear, normal rate/rhythm/volume, spontaneous TP: tangential, at times circumstantial TC: wanting to go home Mood: in pain Affect: congruent. SI: adamantly denies HI: denies VH/AH: no signs Delusions: no overt delusional content. Insight/judgment: impaired x 2. memory/cog: alert, oriented to place, month and year but not to situation. Significant difficulty remembering events that led to this admission. pending MOCA/ACL. Diagnostics Vital Signs (24Hr): Vital Signs - 24 hr 04/03/25 12:49 04/03/25 19:49 Temperature 98.6 F Pulse Rate 52 Respiratory Rate 18 Blood Pressure 144/70 H 150/70 H Pulse Oximetry 95 Oxygen Delivery Method Room Air BMI result Body Mass Index 16.9 Labs 04/01/25 13:38 04/04/25 10:11 Labs: Laboratory Results - last 48 hr 03/29/25 04/02/25 04/03/25 15:02 10:00 07:58 25-OH Vitamin D Total 21 L 25-Hydroxy Vitamin D2 <4 25-Hydroxy Vitamin D3 21 Hepatitis A IgM Ab Nonreactive Hep Bs Antigen Negative Hep Bs Antibody NONREACTIVE Hep B Core Total Ab Nonreactive Hepatitis C Ab (EIA) Reactive H Hep C Viral Load Cancelled Hep C Viral Load Log Cancelled Imaging Radiology Impressions: ITS Impressions Thyroid Ultrasound 04/03/25 11:58 IMPRESSION: Heterogeneous hypervascular thyroid gland. No discrete nodules are identified. ACR TI-RADS Guidelines TR1 (0 points): Benign. No follow-up or biopsy required TR2 (2 points): Not Suspicious. No biopsy or follow up indicated TR3 (3 points): Mildly Suspicious. FNA if >= 2.5 cm, Follow if >= 1.5 cm TR4 (4-6 points): Moderately Suspicious. FNA if >= 1.5 cm, Follow if >= 1.0 cm TR5 (>=7 points): Highly Suspicious. FNA if >= 1.0 cm, Follow if >= 0.5 cm Electronically signed by: García Young MD 04/04/2025 07:08 AM EDT Medications Medications Current Medications Al Hydroxide/Mg Hydroxide (Magnesium Hydrox/Alum Hydrox 30 Ml Oral.Susp) 30 ml PO Q6H PRN PRN Reason: Heartburn/Nausea Alprazolam (Alprazolam 0.5 Mg Tablet) 0.5 mg PO TID [facility] Last Admin: 04/03/25 19:54 Dose: 0.5 mg Amlodipine Besylate (Amlodipine Besylate 5 Mg Tablet) 5 mg PO DAILY [facility]; Protocol Last Admin: 04/03/25 08:53 Dose: 5 mg Atorvastatin Calcium (Atorvastatin Calcium 80 Mg Tablet) 80 mg PO DAILY [facility] Last Admin: 04/03/25 08:51 Dose: 80 mg Ibuprofen (Ibuprofen 400 Mg Tablet) 400 mg PO Q6H PRN PRN Reason: Pain, Moderate(Pain Scale 4-6) Last Admin: 04/04/25 00:44 Dose: 400 mg Magnesium Hydroxide (Milk Of Magnesia 30 Ml Oral.Susp) 30 ml PO DAILY PRN PRN Reason: Constipation Metoprolol Succinate (Metoprolol Succinate Er 25 Mg Tab.Er.24h) 25 mg PO DAILY [facility]; Protocol Last Admin: 04/03/25 08:52 Dose: 25 mg Nicotine Polacrilex (Nicotine Polacrilex 2 Mg Gum) 4 mg BUCCAL Q2H PRN PRN Reason: Nicotine Cravings Olanzapine (Olanzapine 5 Mg Tablet) 5 mg PO TID PRN PRN Reason: agitation Omeprazole (Omeprazole 20 Mg Capsule.Dr) 20 mg PO DAILY@0630 [facility] Last Admin: 04/04/25 06:45 Dose: 20 mg Spironolactone (Spironolactone 25 Mg Tablet) 25 mg PO DAILY [facility]; Protocol Last Admin: 04/03/25 08:51 Dose: 25 mg Trazodone HCl (Trazodone Hcl 25 Mg Halftab) 25 mg PO BEDTIME MRX1 PRN PRN Reason: Insomnia Allergies Allergies Allergy/AdvReac Type Severity Reaction Status Date / Time codeine Allergy Intermediate hives Verified 03/28/25 21:43 Assessment & Plan Assessment & Plan (1) MDD (major depressive disorder), recurrent episode, moderate: Status: Acute Code(s): F33.1 - Major depressive disorder, recurrent, moderate Assessment and Plan: 8.2 daughter reports hx venlafaxine causing psychotic episode in past? has been lowered to 37.5mg - certainly not causing hep c or cholelithiasis- (2) Cognitive impairment: Status: Acute Code(s): R41.89 - Other symptoms and signs involving cognitive functions and awareness Assessment and Plan: MOCA still pending pt cooperation R/O major neurocognitive disorder (3) Abdominal pain: Status: Acute Code(s): R10.9 - Unspecified abdominal pain Assessment and Plan: 04/02 ordered gi consult as per hospitalist suggestion Plan Mrs. Martinez is a 70 year-old woman who was initially brought to [facility] due to weakness, profound lethargy and inability to care for herself. While in the ED, pt presented as agitated, combative and reported SI. Daughter reports pt has been struggling to care for herself (house without hot water, in condemnable condition and pt has not showered in several months). Pt is not able to recall events leading to this admission, despite the fact that she is oriented to month, year and place. We discussed risks, benefits and alternative treatment options. Will lower dose of xanax as pt this morning was more somnolent and lethargic although she had not received xanax. Lowered to 0.5mg po TID. continue effexor er 75mg po daily. Pt noted to have BP elevated but this was one point of care- will continue to monitor. No signs of benzo withdrawal. Pending MOCA/ACL. Will also check B12 (note that although no anemia, MCV was high). Repeat of CMP shows some degree of dehydration (elevated BUN from 14 to 23)- encourage fluids. PLAN 04/04 LFTs trending up, GI following, denies any abdominal pain, no vomiting, afebrile. pt confused as to why she is here, somewhat suspicious about her children wanting to leave her here. Will hold on starting medications until LFTs and bilirubin normalizes. Pending US of gallbladder today. Reason for continued inpatient stay Substantial Risk for: inability to function Time Spent With Patient Time: Total time managing care of this patient today ____ minutes.
--- NOTE | 2025-04-04 10:02 | HO.PM.IMPN ---
Subjective Subjective Date of Service: 04/04/25 Interval History: 70-year-old female admitted to [facility], [place] with multiple complaints. Pt has been experiencing RUQ abdominal pain, per her report, resolved today. Abdominal exam is benign and pt has been able to tolerate diet without N/V. No tenderness with palpation and she has not abdominal complaints. Abdominal ultrasound demostrated cholelithiasis without evidence of cholecystitis. CBD nondilated, diameter WNL. LFTs continue to trend up, currently T bili 1.3, AST 132, AST 170, and alk-phos 215. GI consulted, labs pending. Patient reports a known history of Hep C from years ago . Pt has also been noted to have likely subclinical hyperthyroidism with undetectable TSH and free T4 WNL; free T3 mildly elevated at 4.9. Thyroid ultrasound without nodules present but hypervascular. Thyroid stimulating immunoglobulin and Thyrotropin Receptor Antibodies pending. On exam she is awake and alert, denies any abdominal pain. Reports that her appetite is within normal limits, she is thin. Reports that she has a history of a workup for a thyroid dysfunction approximately 1 year ago at her primary care doctor, but she did not follow through. Review of Systems Denies any shortness of breath, chest pain, dizziness, lightheadedness, abdominal pain or discomfort, nausea vomiting or diarrhea Physical Exam Exam: Exam: CONST: Alert and oriented, in NAD. Thin HEENT: Normocephalic, atraumatic, MMM, Eyes clear, Neck supple RESP: Lungs clear, RRR even and regular HEART:,RRR, S1, S2. No edema GI:Abdomen Soft NT, ND. + BS times four :Deferred SKIN: Warm dry and intact, no visible lesions or rashes NEURO:CN II-XII Intact bilaterally, Sensation intact. Speech clear PSYCH: Normal affect, answers questions appropriately. Vital Signs: Vital Signs: Last Vital Signs Temp 98.6 F 04/03/25 19:49 Pulse 52 04/03/25 19:49 Resp 18 04/03/25 19:49 BP 150/70 H 04/03/25 19:49 Pulse Ox 95 04/03/25 19:49 O2 Del Method Room Air 04/03/25 19:49 BMI result Body Mass Index 16.9 Objective Data Active Medications Al Hydroxide/Mg Hydroxide (Magnesium Hydrox/Alum Hydrox 30 Ml Oral.Susp) 30 ml PO Q6H PRN PRN Reason: Heartburn/Nausea Alprazolam (Alprazolam 0.5 Mg Tablet) 0.5 mg PO TID [facility] Last Admin: 04/03/25 19:54 Dose: 0.5 mg Documented By: PIPE Amlodipine Besylate (Amlodipine Besylate 5 Mg Tablet) 5 mg PO DAILY [facility]; Protocol Last Admin: 04/03/25 08:53 Dose: 5 mg Documented By: JENELLE Atorvastatin Calcium (Atorvastatin Calcium 80 Mg Tablet) 80 mg PO DAILY [facility] Last Admin: 04/03/25 08:51 Dose: 80 mg Documented By: JENELLE Ibuprofen (Ibuprofen 400 Mg Tablet) 400 mg PO Q6H PRN PRN Reason: Pain, Moderate(Pain Scale 4-6) Last Admin: 04/04/25 00:44 Dose: 400 mg Documented By: NICA Magnesium Hydroxide (Milk Of Magnesia 30 Ml Oral.Susp) 30 ml PO DAILY PRN PRN Reason: Constipation Metoprolol Succinate (Metoprolol Succinate Er 25 Mg Tab.Er.24h) 25 mg PO DAILY [facility]; Protocol Last Admin: 04/03/25 08:52 Dose: 25 mg Documented By: JENELLE Nicotine Polacrilex (Nicotine Polacrilex 2 Mg Gum) 4 mg BUCCAL Q2H PRN PRN Reason: Nicotine Cravings Olanzapine (Olanzapine 5 Mg Tablet) 5 mg PO TID PRN PRN Reason: agitation Omeprazole (Omeprazole 20 Mg Capsule.Dr) 20 mg PO DAILY@0630 [facility] Last Admin: 04/04/25 06:45 Dose: 20 mg Documented By: NICA Spironolactone (Spironolactone 25 Mg Tablet) 25 mg PO DAILY [facility]; Protocol Last Admin: 04/03/25 08:51 Dose: 25 mg Documented By: JENELLE Trazodone HCl (Trazodone Hcl 25 Mg Halftab) 25 mg PO BEDTIME MRX1 PRN PRN Reason: Insomnia Labs 04/01/25 13:38 04/04/25 10:11 Microbiology Microbiology Results: Microbiology 04/01/25 17:15 Urine Culture - Final Urine clean catch - Clean Catch Midstream Assessment and Plan (1) Abdominal pain: Status: Acute Plan Pt is a 70-year-old female with a PMH significant for?HLD/CAD, NSTEMI 17 years ago, HTN, HFpEF, aniety, and depression who is admitted to [facility] for increasing depression with SI. Pt initially presented to [facility] for profound lethargy and inability to function at home. Workup was negative except for undetectable TSH but T3 and T4 WNL. While in the ED pt became agitated with multiple outbursts, including throwing coffee, kicking and screaming, and swearing at staff. Pt was not redirectable and required IM Zyprexa. Seen today for abdominal pain. Mood disorder Plan as per psychiatry Abdominal pain/transaminitis Abdominal exam resolved. Patient reports a history of Hep C- Viral panel pending. Patient with a history of EtOH use Abdominal ultrasound demostrated cholelithiasis without evidence of cholecystitis. CBD nondilated, diameter WNL. GI following Afebrile, No diarrhea. Appetite WNL HTN Blood pressures have been labile Continue metoprolol. Started amlodipine. Continue to follow and adjust as needed. CAD/HLD Reports hx of NSTEMI 17 years ago No longer taking aspirin or Plavix, unclear if pt stopped taking on her own or at direction of cardiology Continue statin Will need to follow up with cardiology for med management Subclinical hypothyroidsim Labs at [facility] with TSH undetectable but both T3 and T4 WNL No reported hx of hypothyroidism or use of levothyroxine Thyroid ultrasound without nodules but noted to be hypervascular TSI and TRAb pending Hx of HFpEF Not in acute exacerbation Continue spironolactone Thank you for allowing me to participate in the care of this patient. We will continue to follow as needed. Please reconsult of any acute concerns or issues arise Quality Stroke Does the patient have a stroke diagnosis?: No VTE Prior VTE?: No VTE Risk Level:: Medical - low VTE Device Contraindication: Treatment Not Indicated VTE Drug Contraindication: Treatment Not Indicated
[2025-04-04 10:47] LABS: Alanine Aminotransferase 170 U/L (0-31); Albumin Level 4.1 g/dL (3.5-5.0); Alkaline Phosphatase 215 U/L (39-117); Anion Gap 13 (12-20); Aspartate Amino Transferase 132 U/L (5-31); Blood Urea Nitrogen 19 mg/dL (9-16); Calcium 9.9 mg/dL (8.4-10.2); Carbon Dioxide 26 mmol/L (22-29); Chloride 104 mmol/L (96-108); Creatinine Clr Calc Pharmacy 64.6; Estimated Glomerular Filt Rate > 60; Potassium 3.9 mmol/L (3.3-5.1); Sodium 139 mmol/L (135-145); Total Protein 7.3 g/dL (6.5-8.0)
--- NOTE | 2025-04-04 11:43 | MHC.CLN ---
F/U DIET=REGULAR. ENSURE TID PROVIDES 1050 KCALS, 60 G PROTEIN. CONTINUES WITH VARIABLE PO INTAKE, USUALLY 0-50%. CONTINUE TO FOLLOW FOR PO INTAKE. RD TO FOLLOW UP WEEKLY.
--- NOTE | 2025-04-04 18:05 | PC.NURSE ---
Pt had ultrasound-hepata, nuclear medicine scheduled for today. She was supposed to remain NPO previous to it and staff gave her food. Dx rescheduled for 04/05/25-0730/0800.
[2025-04-04 20:00] VITALS: BP 108/55; PULSE 58; RESP 16; TEMP 36.7; O2SAT 97
[2025-04-05 09:03] VITALS: BP 164/84; PULSE 52; TEMP 36.5; O2SAT 98
[2025-04-05 10:05] VITALS: PULSE 52
[2025-04-05 10:24] LABS: Alanine Aminotransferase 125 U/L (0-31); Albumin Level 4.2 g/dL (3.5-5.0); Alkaline Phosphatase 200 U/L (39-117); Anion Gap 16 (12-20); Aspartate Amino Transferase 67 U/L (5-31); Blood Urea Nitrogen 28 mg/dL (9-16); Calcium 10.3 mg/dL (8.4-10.2); Carbon Dioxide 25 mmol/L (22-29); Chloride 103 mmol/L (96-108); Creatinine Clr Calc Pharmacy 49.0; Estimated Glomerular Filt Rate > 60; Potassium 3.9 mmol/L (3.3-5.1); Sodium 140 mmol/L (135-145); Total Protein 7.7 g/dL (6.5-8.0)
[2025-04-05 12:40] VITALS: BP 100/70; PULSE 42
[2025-04-05 15:38] LABS: HCV RNA PCR Qn <1.18 NOT DETECTED Log IU/mL (NOT DETECTED); HCV RNA PCR Qn <15 NOT DETECTED IU/mL (NOT DETECTED)
--- NOTE | 2025-04-05 17:07 | HO.PSYCHPN ---
Subjective Subjective Date of Service: 04/05/25 Reason For Visit: decompensation/ depression Subjective Notes: Conditional Voluntary Healthcare Proxy: Yes Interim History: Pt reporting headache, again later abdominal pain, declines HIDA scan again although it also needs to be NPO. She does not remember she had abdominal pain right upper quadrant on Friday and also over the weekend, Very suspicious of this marketing writer when reminded that this has been going on and she had been seen by GI stating what are you talking about, this has never happened!! and walking away. Collateral information from daughter who reports her two pets were severely unkempt and malnourished and one of them as a consequence had to be put down. They also reports apartment was in unlivable conditions and they have pictures of the apartment. They are concern in terms of pt's ability to care for herself. Medication Compliance: Yes Side effects from medications: No Attending Groups: No Review of Systems Review of Systems Denies any shortness of breath, chest pain, dizziness, lightheadedness, abdominal pain or discomfort, nausea vomiting or diarrhea Yes all other systems are reviewed and are negative Mental Status Exam Mental Status Exam Narrative: Appearance: wearing hospital gown, thin, very poor hygiene, malodorous, in NAD Behavior: superficially cooperative Psychomotor: no agitation or retardation noted. no tremors. Speech: mostly clear, normal rate/rhythm/volume, spontaneous TP: tangential, at times circumstantial TC: wanting to go home Mood: in pain Affect: congruent. SI: adamantly denies HI: denies VH/AH: no signs Delusions: no overt delusional content. Insight/judgment: impaired x 2. memory/cog: alert, oriented to place, month and year but not to situation. Significant difficulty remembering events that led to this admission. pending MOCA/ACL. Diagnostics Vital Signs (24Hr): Vital Signs - 24 hr 04/04/25 20:00 04/05/25 09:03 04/05/25 10:05 Temperature 98.1 F 97.7 F Pulse Rate 58 52 52 Respiratory Rate 16 Blood Pressure 108/55 L 164/84 H Pulse Oximetry 97 98 Oxygen Delivery Method Room Air Room Air 04/05/25 12:40 Temperature Pulse Rate 42 L Respiratory Rate Blood Pressure 100/70 Pulse Oximetry Oxygen Delivery Method BMI result Body Mass Index 16.9 Labs 04/01/25 13:38 04/06/25 10:29 Labs: Laboratory Results - last 48 hr 04/03/25 04/04/25 04/04/25 07:58 10:11 10:13 Hold Purple Top SEE NOTE Sodium 139 Potassium 3.9 Chloride 104 Carbon Dioxide 26 Anion Gap 13 BUN 19 H Creatinine 0.60 Estim Creat Clear Calc 64.6 Estimated GFR > 60 Random Glucose 110 Calcium 9.9 Total Bilirubin 1.3 H AST 132 H ALT 170 H Alkaline Phosphatase 215 H Total Protein 7.3 Albumin 4.1 HCV RNA (PCR) IUs/ml <15 NOT DETECTED HCV RNA PCR log IUs/ml <1.18 NOT DETECTED Hepatitis C RNA Comment SEE NOTE 04/05/25 09:55 Hold Purple Top Sodium 140 Potassium 3.9 Chloride 103 Carbon Dioxide 25 Anion Gap 16 BUN 28 H Creatinine 0.79 Estim Creat Clear Calc 49.0 Estimated GFR > 60 Random Glucose 105 Calcium 10.3 H Total Bilirubin 0.7 AST 67 H ALT 125 H Alkaline Phosphatase 200 H Total Protein 7.7 Albumin 4.2 HCV RNA (PCR) IUs/ml HCV RNA PCR log IUs/ml Hepatitis C RNA Comment Imaging Radiology Impressions: ITS Impressions Thyroid Ultrasound 04/03/25 11:58 IMPRESSION: Heterogeneous hypervascular thyroid gland. No discrete nodules are identified. ACR TI-RADS Guidelines TR1 (0 points): Benign. No follow-up or biopsy required TR2 (2 points): Not Suspicious. No biopsy or follow up indicated TR3 (3 points): Mildly Suspicious. FNA if >= 2.5 cm, Follow if >= 1.5 cm TR4 (4-6 points): Moderately Suspicious. FNA if >= 1.5 cm, Follow if >= 1.0 cm TR5 (>=7 points): Highly Suspicious. FNA if >= 1.0 cm, Follow if >= 0.5 cm Electronically signed by: García Young MD 04/04/2025 07:08 AM EDT RP Abdomen X-Ray 04/05/25 11:25 IMPRESSION: No radiopaque foreign body is identified. Electronically signed by: García Young MD 04/05/2025 11:45 AM EDT RP Chest X-Ray 04/05/25 11:25 IMPRESSION: Clear lungs. No radiopaque foreign body is identified. Electronically signed by: García Young MD 04/05/2025 11:46 AM EDT RP Skull X-Ray 04/05/25 11:25 IMPRESSION: No radiopaque foreign body is identified. Electronically signed by: García Young MD 04/05/2025 11:47 AM EDT RP Medications Medications Current Medications Al Hydroxide/Mg Hydroxide (Magnesium Hydrox/Alum Hydrox 30 Ml Oral.Susp) 30 ml PO Q6H PRN PRN Reason: Heartburn/Nausea Alprazolam (Alprazolam 0.5 Mg Tablet) 0.5 mg PO TID [facility] Last Admin: 04/05/25 15:04 Dose: 0.5 mg Amlodipine Besylate (Amlodipine Besylate 5 Mg Tablet) 5 mg PO DAILY [facility]; Protocol Last Admin: 04/05/25 09:11 Dose: 5 mg Atorvastatin Calcium (Atorvastatin Calcium 80 Mg Tablet) 80 mg PO DAILY [facility] Last Admin: 04/05/25 09:10 Dose: 80 mg Magnesium Hydroxide (Milk Of Magnesia 30 Ml Oral.Susp) 30 ml PO DAILY PRN PRN Reason: Constipation Metoprolol Succinate (Metoprolol Succinate Er 25 Mg Tab.Er.24h) 25 mg PO DAILY [facility]; Protocol Last Admin: 04/05/25 10:05 Dose: Not Given Nicotine Polacrilex (Nicotine Polacrilex 2 Mg Gum) 4 mg BUCCAL Q2H PRN PRN Reason: Nicotine Cravings Olanzapine (Olanzapine 5 Mg Tablet) 5 mg PO TID PRN PRN Reason: agitation Omeprazole (Omeprazole 20 Mg Capsule.Dr) 20 mg PO DAILY@0630 [facility] Last Admin: 04/05/25 06:22 Dose: 20 mg Spironolactone (Spironolactone 25 Mg Tablet) 25 mg PO DAILY [facility]; Protocol Last Admin: 04/05/25 09:10 Dose: 25 mg Sumatriptan Succinate (Sumatriptan Succinate 50 Mg Tablet) 50 mg PO DAILY PRN PRN Reason: migrane Last Admin: 04/05/25 16:02 Dose: 50 mg Trazodone HCl (Trazodone Hcl 25 Mg Halftab) 25 mg PO BEDTIME MRX1 PRN PRN Reason: Insomnia Allergies Allergies Allergy/AdvReac Type Severity Reaction Status Date / Time codeine Allergy Intermediate hives Verified 03/28/25 21:43 NSAIDS (Non-Steroidal AdvReac Severe gi bleed Verified 04/05/25 10:40 Anti-Inflamma Assessment & Plan Assessment & Plan (1) MDD (major depressive disorder), recurrent episode, moderate: Status: Acute Code(s): F33.1 - Major depressive disorder, recurrent, moderate (2) Cognitive impairment: Status: Acute Code(s): R41.89 - Other symptoms and signs involving cognitive functions and awareness Assessment and Plan: r/o Major Neurocognitive Disorder Plan Mrs. Martinez is a 70 year-old woman who was initially brought to [facility] due to weakness, profound lethargy and inability to care for herself. While in the ED, pt presented as agitated, combative and reported SI. Daughter reports pt has been struggling to care for herself (house without hot water, in condemnable condition and pt has not showered in several months). Pt is not able to recall events leading to this admission, despite the fact that she is oriented to month, year and place. We discussed risks, benefits and alternative treatment options. Will lower dose of xanax as pt this morning was more somnolent and lethargic although she had not received xanax. Lowered to 0.5mg po TID. continue effexor er 75mg po daily. Pt noted to have BP elevated but this was one point of care- will continue to monitor. No signs of benzo withdrawal. Pending MOCA/ACL. Will also check B12 (note that although no anemia, MCV was high). Repeat of CMP shows some degree of dehydration (elevated BUN from 14 to 23)- encourage fluids. PLAN 04/04 LFTs trending up, GI following, denies any abdominal pain, no vomiting, afebrile. pt confused as to why she is here, somewhat suspicious about her children wanting to leave her here. Will hold on starting medications until LFTs and bilirubin normalizes. Pending US of gallbladder today. 04/05 pt forgetful from day to day, confabulation with often seems more like blaming her children for doing things behind her back and thinks they are lying when marketing writer explains concern in terms of memory/cog impairments. Reason for continued inpatient stay Substantial Risk for: inability to function Time Spent With Patient Time: Total time managing care of this patient today ____ minutes.
[2025-04-05 20:00] VITALS: BP 116/53; PULSE 57; RESP 18; TEMP 36.5; O2SAT 99
[2025-04-06 08:00] VITALS: PULSE 47; RESP 18; TEMP 36.3; O2SAT 96
[2025-04-06 10:32] VITALS: BP 130/70
[2025-04-06 10:33] VITALS: PULSE 52
[2025-04-06] MEDS: Metoprolol Succinate ER 25 MG TAB.ER.24H PO (10:33)
[2025-04-06 10:55] LABS: Alanine Aminotransferase 100 U/L (0-31); Albumin Level 4.2 g/dL (3.5-5.0); Alkaline Phosphatase 186 U/L (39-117); Anion Gap 13 (12-20); Aspartate Amino Transferase 48 U/L (5-31); Blood Urea Nitrogen 20 mg/dL (9-16); Calcium 10.1 mg/dL (8.4-10.2); Carbon Dioxide 29 mmol/L (22-29); Chloride 102 mmol/L (96-108); Creatinine Clr Calc Pharmacy 52.4; Estimated Glomerular Filt Rate > 60; Potassium 4.5 mmol/L (3.3-5.1); Sodium 139 mmol/L (135-145); Total Protein 7.5 g/dL (6.5-8.0)
--- NOTE | 2025-04-06 13:40 | P.PNIM_ITS ---
Subjective Subjective Date of Service: 04/06/25 Interval History: Or nursing they were unable to get a blood pressure from patient, she did have some mild nausea this morning but that is resolved. On arrival patient blood pressure was 130/70 manually. Recently started on Norvasc. Ultrasound abdomen done on 04/02 demonstrated normal appearance of the liver and gallbladder, she does have some cholelithiasis. Her LFTs are trending down, she does not have any pain. If patient's LFTs trend up or she develops pain we will reorder a HIDA scan. Review of Systems Denies any shortness of breath, chest pain, dizziness, lightheadedness, abdominal pain or discomfort, nausea vomiting or diarrhea Physical Exam 2 Exam: Exam: CONST: Alert and oriented, in NAD. Thin HEENT: Normocephalic, atraumatic, MMM, Eyes clear, Neck supple RESP: Lungs clear, RRR even and regular HEART:,RRR, S1, S2. No murmur, no edema GI:Abdomen Soft NT, ND. + BS times four :Deferred SKIN: Warm dry and intact, no visible lesions or rashes NEURO:CN II-XII Intact bilaterally, Sensation intact. Speech clear PSYCH: Normal affect Vital Signs: Vital Signs: Last Vital Signs Temp 97.3 F 04/06/25 08:00 Pulse 52 04/06/25 10:33 Resp 18 04/06/25 08:00 BP 130/70 04/06/25 10:32 Pulse Ox 96 04/06/25 08:00 O2 Del Method Room Air 04/06/25 08:00 BMI result Body Mass Index 16.9 Objective Data Active Medications Al Hydroxide/Mg Hydroxide (Magnesium Hydrox/Alum Hydrox 30 Ml Oral.Susp) 30 ml PO Q6H PRN PRN Reason: Heartburn/Nausea Alprazolam (Alprazolam 0.5 Mg Tablet) 0.5 mg PO TID [facility] Last Admin: 04/06/25 09:06 Dose: 0.5 mg Documented By: MOHAMUD Amlodipine Besylate (Amlodipine Besylate 5 Mg Tablet) 5 mg PO DAILY [facility]; Protocol Last Admin: 04/06/25 10:34 Dose: 5 mg Documented By: MOHAMUD Atorvastatin Calcium (Atorvastatin Calcium 80 Mg Tablet) 80 mg PO DAILY [facility] Last Admin: 04/06/25 09:05 Dose: 80 mg Documented By: MOHAMUD Magnesium Hydroxide (Milk Of Magnesia 30 Ml Oral.Susp) 30 ml PO DAILY PRN PRN Reason: Constipation Metoprolol Succinate (Metoprolol Succinate Er 25 Mg Tab.Er.24h) 25 mg PO DAILY [facility]; Protocol Last Admin: 04/06/25 10:33 Dose: 25 mg Documented By: MOHAMUD Nicotine Polacrilex (Nicotine Polacrilex 2 Mg Gum) 4 mg BUCCAL Q2H PRN PRN Reason: Nicotine Cravings Olanzapine (Olanzapine 5 Mg Tablet) 5 mg PO TID PRN PRN Reason: agitation Omeprazole (Omeprazole 20 Mg Capsule.Dr) 20 mg PO DAILY@0630 [facility] Last Admin: 04/06/25 06:27 Dose: 20 mg Documented By: NATHANAEL Spironolactone (Spironolactone 25 Mg Tablet) 25 mg PO DAILY [facility]; Protocol Last Admin: 04/06/25 10:33 Dose: 25 mg Documented By: MOHAMUD Sumatriptan Succinate (Sumatriptan Succinate 50 Mg Tablet) 50 mg PO DAILY PRN PRN Reason: migrane Last Admin: 04/05/25 16:02 Dose: 50 mg Documented By: MOHAMUD Trazodone HCl (Trazodone Hcl 25 Mg Halftab) 25 mg PO BEDTIME MRX1 PRN PRN Reason: Insomnia Labs 04/01/25 13:38 04/06/25 10:29 Labs: Laboratory Results - last 24 hr 04/03/25 04/06/25 07:58 10:29 Anion Gap 13 Estim Creat Clear Calc 52.4 Estimated GFR > 60 Random Glucose 105 Calcium 10.1 Total Bilirubin 0.5 AST 48 H ALT 100 H Alkaline Phosphatase 186 H Total Protein 7.5 Albumin 4.2 HCV RNA (PCR) IUs/ml <15 NOT DETECTED HCV RNA PCR log IUs/ml <1.18 NOT DETECTED Hepatitis C RNA Comment SEE NOTE Assessment and Plan (1) HTN (hypertension): Status: Acute Plan Pt is a 70-year-old female with a PMH significant for?HLD/CAD, NSTEMI 17 years ago, HTN, HFpEF, aniety, and depression who is admitted to [facility] for increasing depression with SI. Pt initially presented to [facility] for profound lethargy and inability to function at home. Workup was negative except for undetectable TSH but T3 and T4 WNL. While in the ED pt became agitated with multiple outbursts, including throwing coffee, kicking and screaming, and swearing at staff. Pt was not redirectable and required IM Zyprexa. Seen today for abdominal pain. Mood disorder Plan as per psychiatry Abdominal pain/transaminitis Abdominal exam resolved. If reoccurs we will order HIDA scan Patient reports a history of Hep C- Viral panel undetectable. Patient with a history of EtOH use Abdominal ultrasound demonstrated cholelithiasis without evidence of cholecystitis. CBD nondilated, diameter WNL. Was seen by Dr. Mauro recommendations appreciated Afebrile, No diarrhea. Appetite WNL HTN Blood pressures have been labile Continue metoprolol. Started amlodipine. Continue to follow and adjust as needed. CAD/HLD Reports hx of NSTEMI 17 years ago No longer taking aspirin or Plavix, unclear if pt stopped taking on her own or at direction of cardiology Continue statin Will need to follow up with cardiology for med management Subclinical hypothyroidsim Labs at [facility] with TSH undetectable but both T3 and T4 WNL No reported hx of hypothyroidism or use of levothyroxine Thyroid ultrasound without nodules but noted to be hypervascular TSI and TRAb pending Hx of HFpEF Not in acute exacerbation Continue spironolactone Thank you for allowing me to participate in the care of this patient. We will continue to follow as needed. Please reconsult of any acute concerns or issues arise Quality Stroke Does the patient have a stroke diagnosis?: No VTE Prior VTE?: No VTE Risk Level:: Medical - low VTE Device Contraindication: Treatment Not Indicated VTE Drug Contraindication: Treatment Not Indicated
[2025-04-06 20:00] VITALS: BP 170/73; PULSE 46; RESP 18; TEMP 36.6; O2SAT 100
[2025-04-07 09:09] VITALS: BP 118/53; PULSE 49; RESP 16; TEMP 36.3; O2SAT 96
--- NOTE | 2025-04-07 16:35 | PM.EVENT ---
Event Note Date of Service: 04/07/25 Event Note: Rapid response called for possible fall. When reached to the patient: She said she was sitting on the chair with awkward position and then suddenly says slid down , she slide down on her shoulder left side. No pain or bruising anywhere. Did not hit her head She is alert oriented x3, cranial nerve 2-12 intact, moves all extremities. chest: air entry fair. ms: moves all ext,no pain Vitals stable plan: Continue to monitor, consider PT evaluation Time Spent With Patient Time: Total time managing care of this patient today ____ minutes.
--- NOTE | 2025-04-07 16:51 | PC.NURSE ---
Patient was found at 1615 lying on the floor out in the milieu on her left side. Patient reported sliding out of the chair and initially stated hitting her head, but then denied and stated I barely hit it, not even hard , when informed she needed to be assessed before being assisted up. Patients vitals were stable (149/66, 50HR, 17R, 97.8T), and she denies any pain. A rapid response was called, the hospitalist, Dr. Hampton evaluated the pt and felt no further workup was needed. Pt is alert and oriented, able to move all extremities, no bruising or discoloration noted. Nursing Journeyman Power Plant Operator Viviana Sharp and the patients provider Ronit Agrawal were both notified.
--- NOTE | 2025-04-07 18:07 | PC.NURSE ---
Patient reported experiencing a migraine this evening, requested PRN medication. Patient was offered PRN Imitrex, to which she refused. Patient requested PRN Tylenol but was informed she is unable to receive Tylenol at this time due to elevated LFT's. Patient then asked if she could receive aspirin but was educated that due to a hx of a previous ruptured ulcer, this nurse did not feel comfortable giving her any NSAIDs. During this time, patient threw the lid of a dinner tray on the floor and stated out loud I'm about to start making a really big deal out of this . Staff suggested to the patient to spend some time in her room lying down with the lights off, rather than sitting out in the milieu with the stimulation of the lights and other noises, along with offering her a cold washcloth (patient declined both). This nurse messaged the employee communications manager provider Bart Gloria, and explained patient's request for medication along with reasoning as to why she could not have Tylenol or NSAIDs. Due to pt declining alternatives offered, Provider suggested pt go in a dark, quiet room . Patient was asked the reasoning for not wanting the Imitrex, and when pt stated It makes me nauseous , pt was offered Zofran to take with the medication to prevent the nausea, to which she also refused and stated It's fine, I will get ahold of an deputy prosecuting attorney for the neglect .
[2025-04-07 20:00] VITALS: BP 127/55; PULSE 45; RESP 18; TEMP 36.6; O2SAT 98
--- NOTE | 2025-04-07 20:53 | HO.PSYCHPN ---
Subjective Subjective Date of Service: 04/06/25 Reason For Visit: decompensation/ depression Interim History: Pt slept most of the night. She is not able to remember conversation with family or this ad copy writer from day before. She is confused as to why she is here. She does not remember events leading to this admission, very vague recollection. In this setting she becomes very suspicious and paranoid towards staff here and her family. She reports feeling tired. Diagnostics Vital Signs (24Hr): Vital Signs - 24 hr 04/07/25 09:09 Temperature 97.3 F Pulse Rate 49 L Respiratory Rate 16 Blood Pressure 118/53 L Pulse Oximetry 96 Oxygen Delivery Method Room Air BMI result Body Mass Index 16.9 Labs 04/01/25 13:38 04/06/25 10:29 Labs: Laboratory Results - last 48 hr 04/02/25 04/02/25 04/03/25 10:00 15:54 07:58 Sodium Potassium Chloride Carbon Dioxide Anion Gap BUN Creatinine Estim Creat Clear Calc Estimated GFR Random Glucose Calcium Total Bilirubin AST ALT Alkaline Phosphatase Total Protein Albumin Thyroid Stim Immunoglob 167 H TSH Receptor Ab 2.44 H HCV RNA Genotype LiPA TNP 04/06/25 10:29 Sodium 139 Potassium 4.5 Chloride 102 Carbon Dioxide 29 Anion Gap 13 BUN 20 H Creatinine 0.74 Estim Creat Clear Calc 52.4 Estimated GFR > 60 Random Glucose 105 Calcium 10.1 Total Bilirubin 0.5 AST 48 H ALT 100 H Alkaline Phosphatase 186 H Total Protein 7.5 Albumin 4.2 Thyroid Stim Immunoglob TSH Receptor Ab HCV RNA Genotype LiPA Imaging Radiology Impressions: ITS Impressions Thyroid Ultrasound 04/03/25 11:58 IMPRESSION: Heterogeneous hypervascular thyroid gland. No discrete nodules are identified. ACR TI-RADS Guidelines TR1 (0 points): Benign. No follow-up or biopsy required TR2 (2 points): Not Suspicious. No biopsy or follow up indicated TR3 (3 points): Mildly Suspicious. FNA if >= 2.5 cm, Follow if >= 1.5 cm TR4 (4-6 points): Moderately Suspicious. FNA if >= 1.5 cm, Follow if >= 1.0 cm TR5 (>=7 points): Highly Suspicious. FNA if >= 1.0 cm, Follow if >= 0.5 cm Electronically signed by: García Young MD 04/04/2025 07:08 AM EDT RP Abdomen X-Ray 04/05/25 11:25 IMPRESSION: No radiopaque foreign body is identified. Electronically signed by: García Young MD 04/05/2025 11:45 AM EDT RP Chest X-Ray 04/05/25 11:25 IMPRESSION: Clear lungs. No radiopaque foreign body is identified. Electronically signed by: García Young MD 04/05/2025 11:46 AM EDT RP Skull X-Ray 04/05/25 11:25 IMPRESSION: No radiopaque foreign body is identified. Electronically signed by: García Young MD 04/05/2025 11:47 AM EDT RP Medications Medications Current Medications Al Hydroxide/Mg Hydroxide (Magnesium Hydrox/Alum Hydrox 30 Ml Oral.Susp) 30 ml PO Q6H PRN PRN Reason: Heartburn/Nausea Alprazolam (Alprazolam 0.25 Mg Tablet) 0.25 mg PO TID [facility] Last Admin: 04/07/25 15:25 Dose: 0.25 mg Amlodipine Besylate (Amlodipine Besylate 5 Mg Tablet) 5 mg PO DAILY [facility]; Protocol Last Admin: 04/07/25 10:03 Dose: 5 mg Aripiprazole (Aripiprazole 5 Mg Tablet) 5 mg PO DAILY [facility] Last Admin: 04/07/25 10:03 Dose: Not Given Atorvastatin Calcium (Atorvastatin Calcium 80 Mg Tablet) 80 mg PO DAILY [facility] Last Admin: 04/07/25 10:01 Dose: 80 mg Magnesium Hydroxide (Milk Of Magnesia 30 Ml Oral.Susp) 30 ml PO DAILY PRN PRN Reason: Constipation Metoprolol Succinate (Metoprolol Succinate Er 25 Mg Tab.Er.24h) 25 mg PO DAILY [facility]; Protocol On Hold: 04/06/25 21:31 Last Admin: 04/06/25 10:33 Dose: 25 mg Nicotine Polacrilex (Nicotine Polacrilex 2 Mg Gum) 4 mg BUCCAL Q2H PRN PRN Reason: Nicotine Cravings Olanzapine (Olanzapine 5 Mg Tablet) 5 mg PO TID PRN PRN Reason: agitation Omeprazole (Omeprazole 20 Mg Capsule.Dr) 20 mg PO DAILY@0630 [facility] Last Admin: 04/07/25 06:10 Dose: 20 mg Spironolactone (Spironolactone 25 Mg Tablet) 25 mg PO DAILY [facility]; Protocol Last Admin: 04/07/25 10:03 Dose: 25 mg Sumatriptan Succinate (Sumatriptan Succinate 50 Mg Tablet) 50 mg PO DAILY PRN PRN Reason: migrane Last Admin: 04/06/25 18:21 Dose: 50 mg Trazodone HCl (Trazodone Hcl 25 Mg Halftab) 25 mg PO BEDTIME MRX1 PRN PRN Reason: Insomnia Allergies Allergies Allergy/AdvReac Type Severity Reaction Status Date / Time codeine Allergy Intermediate hives Verified 03/28/25 21:43 NSAIDS (Non-Steroidal AdvReac Severe gi bleed Verified 04/05/25 10:40 Anti-Inflamma Assessment & Plan Assessment & Plan (1) MDD (major depressive disorder), recurrent episode, moderate: Status: Acute Code(s): F33.1 - Major depressive disorder, recurrent, moderate (2) Cognitive impairment: Status: Acute Code(s): R41.89 - Other symptoms and signs involving cognitive functions and awareness Assessment and Plan: r/o Major Neurocognitive Disorder Plan Mrs. Martinez is a 70 year-old woman who was initially brought to [facility] due to weakness, profound lethargy and inability to care for herself. While in the ED, pt presented as agitated, combative and reported SI. Daughter reports pt has been struggling to care for herself (house without hot water, in condemnable condition and pt has not showered in several months). Pt is not able to recall events leading to this admission, despite the fact that she is oriented to month, year and place. We discussed risks, benefits and alternative treatment options. Will lower dose of xanax as pt this morning was more somnolent and lethargic although she had not received xanax. Lowered to 0.5mg po TID. continue effexor er 75mg po daily. Pt noted to have BP elevated but this was one point of care- will continue to monitor. No signs of benzo withdrawal. Pending MOCA/ACL. Will also check B12 (note that although no anemia, MCV was high). Repeat of CMP shows some degree of dehydration (elevated BUN from 14 to 23)- encourage fluids. PLAN 04/04 LFTs trending up, GI following, denies any abdominal pain, no vomiting, afebrile. pt confused as to why she is here, somewhat suspicious about her children wanting to leave her here. Will hold on starting medications until LFTs and bilirubin normalizes. Pending US of gallbladder today. 04/05 pt forgetful from day to day, confabulation with often seems more like blaming her children for doing things behind her back and thinks they are lying when ad copy writer explains concern in terms of memory/cog impairments. 04/06 continue tx. may add abilify for mood/suspiciousness. Reason for continued inpatient stay Substantial Risk for: inability to function Time Spent With Patient Time: Total time managing care of this patient today ____ minutes.
--- NOTE | 2025-04-07 20:54 | HO.PSYCHPN ---
Subjective Subjective Date of Service: 04/07/25 Reason For Visit: decompensation/ depression Interim History: Pt in bed, upset with her children. She reports no one has called her and not remembering that two days ago she had zoom call with all her children. Does not recall why she is here. Upset when this resume writer explains that there were concerns in terms of her ability to care for herself. She denies SI/HI. Medication Compliance: Yes Review of Systems Review of Systems Denies shortness of breath, chest pain, dizziness, lightheadedness, abdominal pain or discomfort, nausea vomiting or diarrhea. Reports ear pain, tenderness to ear lobe and tragus. Yes all other systems are reviewed and are negative Mental Status Exam Mental Status Exam Narrative: Appearance: wearing hospital gown, thin, very poor hygiene, malodorous, in NAD Behavior: superficially cooperative Psychomotor: no agitation or retardation noted. no tremors. Speech: mostly clear, normal rate/rhythm/volume, spontaneous TP: tangential, at times circumstantial TC: wanting to go home Mood: tired Affect: constricted SI: adamantly denies HI: denies VH/AH: no signs Delusions: no overt delusional content.but noted comfabulation. Insight/judgment: impaired x 2. memory/cog: alert, oriented to place, month and year but not to situation. Significant difficulty remembering events that led to this admission. MOCA Diagnostics Vital Signs (24Hr): Vital Signs - 24 hr 04/07/25 09:09 Temperature 97.3 F Pulse Rate 49 L Respiratory Rate 16 Blood Pressure 118/53 L Pulse Oximetry 96 Oxygen Delivery Method Room Air BMI result Body Mass Index 16.9 Labs 04/01/25 13:38 04/06/25 10:29 Labs: Laboratory Results - last 48 hr 04/02/25 04/02/25 04/03/25 10:00 15:54 07:58 Sodium Potassium Chloride Carbon Dioxide Anion Gap BUN Creatinine Estim Creat Clear Calc Estimated GFR Random Glucose Calcium Total Bilirubin AST ALT Alkaline Phosphatase Total Protein Albumin Thyroid Stim Immunoglob 167 H TSH Receptor Ab 2.44 H HCV RNA Genotype LiPA TNP 04/06/25 10:29 Sodium 139 Potassium 4.5 Chloride 102 Carbon Dioxide 29 Anion Gap 13 BUN 20 H Creatinine 0.74 Estim Creat Clear Calc 52.4 Estimated GFR > 60 Random Glucose 105 Calcium 10.1 Total Bilirubin 0.5 AST 48 H ALT 100 H Alkaline Phosphatase 186 H Total Protein 7.5 Albumin 4.2 Thyroid Stim Immunoglob TSH Receptor Ab HCV RNA Genotype LiPA Imaging Radiology Impressions: ITS Impressions Thyroid Ultrasound 04/03/25 11:58 IMPRESSION: Heterogeneous hypervascular thyroid gland. No discrete nodules are identified. ACR TI-RADS Guidelines TR1 (0 points): Benign. No follow-up or biopsy required TR2 (2 points): Not Suspicious. No biopsy or follow up indicated TR3 (3 points): Mildly Suspicious. FNA if >= 2.5 cm, Follow if >= 1.5 cm TR4 (4-6 points): Moderately Suspicious. FNA if >= 1.5 cm, Follow if >= 1.0 cm TR5 (>=7 points): Highly Suspicious. FNA if >= 1.0 cm, Follow if >= 0.5 cm Electronically signed by: García Young MD 04/04/2025 07:08 AM EDT RP Abdomen X-Ray 04/05/25 11:25 IMPRESSION: No radiopaque foreign body is identified. Electronically signed by: García Young MD 04/05/2025 11:45 AM EDT RP Chest X-Ray 04/05/25 11:25 IMPRESSION: Clear lungs. No radiopaque foreign body is identified. Electronically signed by: García Young MD 04/05/2025 11:46 AM EDT RP Skull X-Ray 04/05/25 11:25 IMPRESSION: No radiopaque foreign body is identified. Electronically signed by: García Young MD 04/05/2025 11:47 AM EDT RP Medications Medications Current Medications Al Hydroxide/Mg Hydroxide (Magnesium Hydrox/Alum Hydrox 30 Ml Oral.Susp) 30 ml PO Q6H PRN PRN Reason: Heartburn/Nausea Alprazolam (Alprazolam 0.25 Mg Tablet) 0.25 mg PO TID [facility] Last Admin: 04/07/25 15:25 Dose: 0.25 mg Amlodipine Besylate (Amlodipine Besylate 5 Mg Tablet) 5 mg PO DAILY [facility]; Protocol Last Admin: 04/07/25 10:03 Dose: 5 mg Aripiprazole (Aripiprazole 5 Mg Tablet) 5 mg PO DAILY [facility] Last Admin: 04/07/25 10:03 Dose: Not Given Atorvastatin Calcium (Atorvastatin Calcium 80 Mg Tablet) 80 mg PO DAILY [facility] Last Admin: 04/07/25 10:01 Dose: 80 mg Magnesium Hydroxide (Milk Of Magnesia 30 Ml Oral.Susp) 30 ml PO DAILY PRN PRN Reason: Constipation Metoprolol Succinate (Metoprolol Succinate Er 25 Mg Tab.Er.24h) 25 mg PO DAILY [facility]; Protocol On Hold: 04/06/25 21:31 Last Admin: 04/06/25 10:33 Dose: 25 mg Nicotine Polacrilex (Nicotine Polacrilex 2 Mg Gum) 4 mg BUCCAL Q2H PRN PRN Reason: Nicotine Cravings Olanzapine (Olanzapine 5 Mg Tablet) 5 mg PO TID PRN PRN Reason: agitation Omeprazole (Omeprazole 20 Mg Capsule.Dr) 20 mg PO DAILY@0630 [facility] Last Admin: 04/07/25 06:10 Dose: 20 mg Spironolactone (Spironolactone 25 Mg Tablet) 25 mg PO DAILY [facility]; Protocol Last Admin: 04/07/25 10:03 Dose: 25 mg Sumatriptan Succinate (Sumatriptan Succinate 50 Mg Tablet) 50 mg PO DAILY PRN PRN Reason: migrane Last Admin: 04/06/25 18:21 Dose: 50 mg Trazodone HCl (Trazodone Hcl 25 Mg Halftab) 25 mg PO BEDTIME MRX1 PRN PRN Reason: Insomnia Allergies Allergies Allergy/AdvReac Type Severity Reaction Status Date / Time codeine Allergy Intermediate hives Verified 03/28/25 21:43 NSAIDS (Non-Steroidal AdvReac Severe gi bleed Verified 04/05/25 10:40 Anti-Inflamma Assessment & Plan Assessment & Plan (1) MDD (major depressive disorder), recurrent episode, moderate: Status: Acute Code(s): F33.1 - Major depressive disorder, recurrent, moderate (2) Cognitive impairment: Status: Acute Code(s): R41.89 - Other symptoms and signs involving cognitive functions and awareness Assessment and Plan: r/o Major Neurocognitive Disorder- suspect of AD type. Plan Mrs. Martinez is a 70 year-old woman who was initially brought to [facility] due to weakness, profound lethargy and inability to care for herself. While in the ED, pt presented as agitated, combative and reported SI. Daughter reports pt has been struggling to care for herself (house without hot water, in condemnable condition and pt has not showered in several months). Pt is not able to recall events leading to this admission, despite the fact that she is oriented to month, year and place. We discussed risks, benefits and alternative treatment options. Will lower dose of xanax as pt this morning was more somnolent and lethargic although she had not received xanax. Lowered to 0.5mg po TID. continue effexor er 75mg po daily. Pt noted to have BP elevated but this was one point of care- will continue to monitor. No signs of benzo withdrawal. Pending MOCA/ACL. Will also check B12 (note that although no anemia, MCV was high). Repeat of CMP shows some degree of dehydration (elevated BUN from 14 to 23)- encourage fluids. PLAN 04/04 LFTs trending up, GI following, denies any abdominal pain, no vomiting, afebrile. pt confused as to why she is here, somewhat suspicious about her children wanting to leave her here. Will hold on starting medications until LFTs and bilirubin normalizes. Pending US of gallbladder today. 8/ pt forgetful from day to day, confabulation with often seems more like blaming her children for doing things behind her back and thinks they are lying when resume writer explains concern in terms of memory/cog impairments. 04/06 LFTs trending down. Will start abilify for mood/suspiciousness. Reason for continued inpatient stay Substantial Risk for: inability to function Time Spent With Patient Time: Total time managing care of this patient today ____ minutes.
[2025-04-07] MEDS: traZODone HCL 25 MG HALFTAB PO (21:08)
[2025-04-08 09:17] VITALS: BP 118/78; PULSE 49; RESP 16; TEMP 36.5; O2SAT 98
--- NOTE | 2025-04-08 14:09 | HO.PM.IMPN ---
Subjective Subjective Date of Service: 04/08/25 Interval History: Patient is reporting right ear pain and pressure for about 3-4 days. She reports that her ear is tender to touch, feels blocked, denies any changes in her hearing. No drainage noted. She has been afebrile. Upon review of the vital signs patient is noted to be bradycardic. Review of Systems Denies shortness of breath, chest pain, dizziness, lightheadedness, abdominal pain or discomfort, nausea vomiting or diarrhea. Reports ear pain, tenderness to ear lobe and tragus. Physical Exam Exam: Exam: CONST: Alert and oriented, in NAD. Thin. HEENT: Normocephalic, atraumatic, MMM, Eyes clear, Neck supple. Left ear WNL except for ear wax that is not ocluding ear drum, Right ear with ear wax adhered to ear canal with surrounding redness. Tympanic membrane injected. RESP: Lungs clear, RRR even and regular HEART:,RRR, S1, S2. No murmur, no edema GI:Abdomen Soft NT, ND. + BS times four :Deferred SKIN: Warm dry and intact, no visible lesions or rashes NEURO:CN II-XII Intact bilaterally, Sensation intact. Speech clear PSYCH: Normal affect Vital Signs: Vital Signs: Last Vital Signs Temp 97.7 F 04/08/25 09:17 Pulse 49 L 04/08/25 09:17 Resp 16 04/08/25 09:17 BP 118/78 04/08/25 09:17 Pulse Ox 98 04/08/25 09:17 O2 Del Method Room Air 04/08/25 09:17 BMI result Body Mass Index 16.9 Objective Data Active Medications Al Hydroxide/Mg Hydroxide (Magnesium Hydrox/Alum Hydrox 30 Ml Oral.Susp) 30 ml PO Q6H PRN PRN Reason: Heartburn/Nausea Alprazolam (Alprazolam 0.25 Mg Tablet) 0.25 mg PO TID [facility] Last Admin: 04/08/25 09:19 Dose: 0.25 mg Documented By: LEXI Amlodipine Besylate (Amlodipine Besylate 5 Mg Tablet) 5 mg PO DAILY [facility]; Protocol Last Admin: 04/08/25 09:19 Dose: 5 mg Documented By: LEXI Aripiprazole (Aripiprazole 5 Mg Tablet) 5 mg PO DAILY [facility] Last Admin: 04/08/25 09:22 Dose: Not Given Documented By: LEXI Non-Admin Reason: Patient Refused Atorvastatin Calcium (Atorvastatin Calcium 80 Mg Tablet) 80 mg PO DAILY [facility] Last Admin: 04/08/25 09:19 Dose: 80 mg Documented By: LEXI Magnesium Hydroxide (Milk Of Magnesia 30 Ml Oral.Susp) 30 ml PO DAILY PRN PRN Reason: Constipation Metoprolol Succinate (Metoprolol Succinate Er 25 Mg Tab.Er.24h) 25 mg PO DAILY [facility]; Protocol On Hold: 04/06/25 21:31 Last Admin: 04/06/25 10:33 Dose: 25 mg Documented By: MOHAMUD Nicotine Polacrilex (Nicotine Polacrilex 2 Mg Gum) 4 mg BUCCAL Q2H PRN PRN Reason: Nicotine Cravings Olanzapine (Olanzapine 5 Mg Tablet) 5 mg PO TID PRN PRN Reason: agitation Omeprazole (Omeprazole 20 Mg Capsule.Dr) 20 mg PO DAILY@0630 [facility] Last Admin: 04/08/25 06:21 Dose: 20 mg Documented By: JOANNA Spironolactone (Spironolactone 25 Mg Tablet) 25 mg PO DAILY [facility]; Protocol Last Admin: 04/08/25 09:19 Dose: 25 mg Documented By: LEXI Sumatriptan Succinate (Sumatriptan Succinate 50 Mg Tablet) 50 mg PO DAILY PRN PRN Reason: migrane Last Admin: 04/06/25 18:21 Dose: 50 mg Documented By: MOHAMUD Trazodone HCl (Trazodone Hcl 25 Mg Halftab) 25 mg PO BEDTIME MRX1 PRN PRN Reason: Insomnia Last Admin: 04/07/25 21:08 Dose: 25 mg Documented By: JOANNA Labs 04/01/25 13:38 04/06/25 10:29 Labs: Laboratory Results - last 24 hr 04/02/25 04/03/25 10:00 07:58 Thyroid Stim Immunoglob 167 H HCV RNA Genotype LiPA TNP Microbiology Microbiology Results: Microbiology 04/06/25 09:47 Urine Culture - Final Urine clean catch Assessment and Plan (1) Graves disease: Status: Acute Plan Pt is a 70-year-old female with a PMH significant for?HLD/CAD, NSTEMI 17 years ago, HTN, HFpEF, aniety, and depression who is admitted to [facility] for increasing depression with SI. Pt initially presented to [facility] for profound lethargy and inability to function at home. Workup was negative except for undetectable TSH but T3 and T4 WNL. While in the ED pt became agitated with multiple outbursts, including throwing coffee, kicking and screaming, and swearing at staff. Pt was not redirectable and required IM Zyprexa. Seen today for right ear pain, bradycardia and early graves disease. . Right otitis media. Augmentin 875 mgs BID for 5 days Debrox to both ears HTN/CAD/HLD Continue amlodipine. Reports hx of NSTEMI 17 years ago No longer taking aspirin or Plavix, unclear if pt stopped taking on her own or at direction of cardiology Continue statin Patients HR 40-50's and she is asymptomatic. Metoprolol on hold Graves disease Thyroid ultrasound without nodules but noted to be hypervascular TSI and TRAb elevated. Free T3 elevated, T4 normal Start Methimazole 10 mgs daily Repeat labs in one week. Follow labs every 4 weeks. Will need endocrinology follow up. Abdominal pain/transaminitis Abdominal pain resolved If reoccurs we will order HIDA scan Patient reports a history of Hep C- Viral panel undetectable. Patient with a history of EtOH use Hx of HFpEF Not in acute exacerbation Continue spironolactone Thank you for allowing me to participate in the care of this patient. We will continue to follow as needed. Please reconsult of any acute concerns or issues arise Quality Stroke Does the patient have a stroke diagnosis?: No VTE Prior VTE?: No VTE Risk Level:: Medical - low VTE Device Contraindication: Treatment Not Indicated VTE Drug Contraindication: Treatment Not Indicated
--- NOTE | 2025-04-08 16:29 | P.PNPSI_ITS ---
Subjective Subjective Date of Service: 04/08/25 Reason For Visit: decompensation/ depression Subjective Notes: Conditional Voluntary Healthcare Proxy: Yes Interim History: Pt slept most of the night. Seen by hospitalist following up on results from TSH, seems to have beginning of graves disease, started on tapazole. Also seen for otitis media. Pt forgetful thinking she has not talked with her daughters only son. She is upset as she does not remember why she is here or how she got here. Upset when discussing concern in terms of memory/cog and inability to care for herself. Review of Systems Review of Systems Denies shortness of breath, chest pain, dizziness, lightheadedness, abdominal pain or discomfort, nausea vomiting or diarrhea. Reports ear pain, tenderness to ear lobe and tragus. Yes all other systems are reviewed and are negative Mental Status Exam Mental Status Exam Narrative: Appearance: wearing hospital gown, thin, very poor hygiene, malodorous, in NAD Behavior: superficially cooperative Psychomotor: no agitation or retardation noted. no tremors. Speech: mostly clear, normal rate/rhythm/volume, spontaneous TP: tangential, at times circumstantial TC: wanting to go home Mood: tired Affect: constricted SI: adamantly denies HI: denies VH/AH: no signs Delusions: no overt delusional content.but noted comfabulation. Insight/judgment: impaired x 2. memory/cog: alert, oriented to place, month and year but not to situation. Significant difficulty remembering events that led to this admission. MOCA Diagnostics Vital Signs (24Hr): Vital Signs - 24 hr 04/07/25 20:00 04/08/25 09:17 Temperature 98 F 97.7 F Pulse Rate 45 L 49 L Respiratory Rate 18 16 Blood Pressure 127/55 L 118/78 Pulse Oximetry 98 98 Oxygen Delivery Method Room Air Room Air BMI result Body Mass Index 16.9 Labs 04/01/25 13:38 04/06/25 10:29 Labs: Laboratory Results - last 48 hr 04/02/25 04/02/25 04/03/25 10:00 15:54 07:58 Thyroid Stim Immunoglob 167 H TSH Receptor Ab 2.44 H HCV RNA Genotype LiPA TNP Imaging Radiology Impressions: ITS Impressions Thyroid Ultrasound 04/03/25 11:58 IMPRESSION: Heterogeneous hypervascular thyroid gland. No discrete nodules are identified. ACR TI-RADS Guidelines TR1 (0 points): Benign. No follow-up or biopsy required TR2 (2 points): Not Suspicious. No biopsy or follow up indicated TR3 (3 points): Mildly Suspicious. FNA if >= 2.5 cm, Follow if >= 1.5 cm TR4 (4-6 points): Moderately Suspicious. FNA if >= 1.5 cm, Follow if >= 1.0 cm TR5 (>=7 points): Highly Suspicious. FNA if >= 1.0 cm, Follow if >= 0.5 cm Electronically signed by: García Young MD 04/04/2025 07:08 AM EDT RP Abdomen X-Ray 04/05/25 11:25 IMPRESSION: No radiopaque foreign body is identified. Electronically signed by: García Young MD 04/05/2025 11:45 AM EDT RP Chest X-Ray 04/05/25 11:25 IMPRESSION: Clear lungs. No radiopaque foreign body is identified. Electronically signed by: García Young MD 04/05/2025 11:46 AM EDT RP Skull X-Ray 04/05/25 11:25 IMPRESSION: No radiopaque foreign body is identified. Electronically signed by: García Young MD 04/05/2025 11:47 AM EDT RP Medications Medications Current Medications Al Hydroxide/Mg Hydroxide (Magnesium Hydrox/Alum Hydrox 30 Ml Oral.Susp) 30 ml PO Q6H PRN PRN Reason: Heartburn/Nausea Alprazolam (Alprazolam 0.25 Mg Tablet) 0.25 mg PO TID [facility] Last Admin: 04/08/25 14:03 Dose: 0.25 mg Amlodipine Besylate (Amlodipine Besylate 5 Mg Tablet) 5 mg PO DAILY [facility]; Protocol Last Admin: 04/08/25 09:19 Dose: 5 mg Amoxicillin/Clavulanate Potassium (Amoxicillin/Potassium Clav 875 Mg Tablet) 875 mg PO Q12H [facility] Stop: 04/15/25 11:01 Aripiprazole (Aripiprazole 5 Mg Tablet) 5 mg PO DAILY [facility] Last Admin: 04/08/25 09:22 Dose: Not Given Atorvastatin Calcium (Atorvastatin Calcium 80 Mg Tablet) 80 mg PO DAILY [facility] Last Admin: 04/08/25 09:19 Dose: 80 mg Carbamide Peroxide (Carbamide Peroxide 6.5% Otic 15 Ml Drpbtl) 5 drop EAR-BOTH BID [facility] Stop: 04/12/25 15:04 Magnesium Hydroxide (Milk Of Magnesia 30 Ml Oral.Susp) 30 ml PO DAILY PRN PRN Reason: Constipation Methimazole (Methimazole 10 Mg Tablet) 10 mg PO DAILY [facility] Metoprolol Succinate (Metoprolol Succinate Er 12.5 Mg Halftab.Er.24h) 12.5 mg PO DAILY [facility]; Protocol Nicotine Polacrilex (Nicotine Polacrilex 2 Mg Gum) 4 mg BUCCAL Q2H PRN PRN Reason: Nicotine Cravings Olanzapine (Olanzapine 5 Mg Tablet) 5 mg PO TID PRN PRN Reason: agitation Omeprazole (Omeprazole 20 Mg Capsule.Dr) 20 mg PO DAILY@0630 [facility] Last Admin: 04/08/25 06:21 Dose: 20 mg Spironolactone (Spironolactone 25 Mg Tablet) 25 mg PO DAILY [facility]; Protocol Last Admin: 04/08/25 09:19 Dose: 25 mg Sumatriptan Succinate (Sumatriptan Succinate 50 Mg Tablet) 50 mg PO DAILY PRN PRN Reason: migrane Last Admin: 04/06/25 18:21 Dose: 50 mg Trazodone HCl (Trazodone Hcl 25 Mg Halftab) 25 mg PO BEDTIME MRX1 PRN PRN Reason: Insomnia Last Admin: 04/07/25 21:08 Dose: 25 mg Allergies Allergies Allergy/AdvReac Type Severity Reaction Status Date / Time codeine Allergy Intermediate hives Verified 03/28/25 21:43 NSAIDS (Non-Steroidal AdvReac Severe gi bleed Verified 04/05/25 10:40 Anti-Inflamma Assessment & Plan Assessment & Plan (1) MDD (major depressive disorder), recurrent episode, moderate: Status: Acute Code(s): F33.1 - Major depressive disorder, recurrent, moderate (2) Cognitive impairment: Status: Acute Code(s): R41.89 - Other symptoms and signs involving cognitive functions and awareness Assessment and Plan: r/o Major Neurocognitive Disorder- suspect of AD type. Plan Mrs. Martinez is a 70 year-old woman who was initially brought to [facility] due to weakness, profound lethargy and inability to care for herself. While in the ED, pt presented as agitated, combative and reported SI. Daughter reports pt has been struggling to care for herself (house without hot water, in condemnable condition and pt has not showered in several months). Pt is not able to recall events leading to this admission, despite the fact that she is oriented to month, year and place. We discussed risks, benefits and alternative treatment options. Will lower dose of xanax as pt this morning was more somnolent and lethargic although she had not received xanax. Lowered to 0.5mg po TID. continue effexor er 75mg po daily. Pt noted to have BP elevated but this was one point of care- will continue to monitor. No signs of benzo withdrawal. Pending MOCA/ACL. Will also check B12 (note that although no anemia, MCV was high). Repeat of CMP shows some degree of dehydration (elevated BUN from 14 to 23)- encourage fluids. PLAN 04/04 LFTs trending up, GI following, denies any abdominal pain, no vomiting, afebrile. pt confused as to why she is here, somewhat suspicious about her children wanting to leave her here. Will hold on starting medications until LFTs and bilirubin normalizes. Pending US of gallbladder today. 04/05 pt forgetful from day to day, confabulation with often seems more like blaming her children for doing things behind her back and thinks they are lying when commercial insurance underwriter explains concern in terms of memory/cog impairments. 04/06 LFTs trending down. Will start abilify for mood/suspiciousness. 04/08 continue tx. Reason for continued inpatient stay Substantial Risk for: inability to function Time Spent With Patient Time: Total time managing care of this patient today ____ minutes.
[2025-04-08 20:00] VITALS: BP 140/78; PULSE 60; RESP 16; TEMP 36.4; O2SAT 95
[2025-04-08] MEDS: traZODone HCL 25 MG HALFTAB PO (20:50)
[2025-04-08] MEDS: Carbamide Peroxide 6.5% Otic 15 ML DRPBTL 5 DROP EAR-BOTH (20:51)
[2025-04-09] MEDS: traZODone HCL 25 MG HALFTAB PO ×2 (01:51→22:19)
[2025-04-09 02:14] LABS: FIB-ALT 122 U/L (6-29); FIB-Alpha-2-Macroglobulin 382 mg/dL (106-279); FIB-Apolipoprotein A1 123 mg/dL (101-198); FIB-GGT 176 U/L (3-65); FIB-Haptoglobin 343 mg/dL (43-212); FIB-Total Bilirubin 1.3 mg/dL (0.2-1.2); Liver Fibrosis Score 0.82; Liver Fibrosis Stage F4; Nec Inflam Act Grade A3; Nec Inflam Act Score 0.80
[2025-04-09 09:05] VITALS: BP 178/79; PULSE 48; RESP 16; TEMP 36.4; O2SAT 98
[2025-04-09] MEDS: Carbamide Peroxide 6.5% Otic 15 ML DRPBTL 5 DROP EAR-BOTH ×2 (09:10→22:19)
--- NOTE | 2025-04-09 11:44 | HO.PSYCHPN ---
Subjective Subjective Date of Service: 04/09/25 Reason For Visit: decompensation/ depression Subjective Notes: Conditional Voluntary Interim History: Patient was seen and discussed in rounds today. Records and plans were reviewed. She continues to be having migraines and the Imitrex has been ineffective. She states that she uses Tylenol and ibuprofen at home but there are concerns about liver enzymes and also history of possible GI bleed with ibuprofen. I spoke with the pharmacy and they suggested using Fioricet which has a small amount of acetaminophen. She is open to trying it. She continues to have cognitive deficits though she may look better than she really is. Slept 6 hours. No other changes were made Review of Systems Review of Systems Headaches Yes all other systems are reviewed and are negative Mental Status Exam Mental Status Exam Narrative: In today's visit she is alert, oriented to time, place and person. Normal speech. Good eye contact. Affect is appropriate and slightly irritable. No acute signs of psychosis. No delusions. Cognitively appears to be better than she is on her testing. No SI. Judgment is marginal Diagnostics Vital Signs (24Hr): Vital Signs - 24 hr 04/08/25 20:00 04/09/25 09:05 Temperature 97.5 F 97.5 F Pulse Rate 60 48 L Respiratory Rate 16 16 Blood Pressure 140/78 H 178/79 H Pulse Oximetry 95 98 Oxygen Delivery Method Room Air Room Air BMI result Body Mass Index 16.9 Labs 04/01/25 13:38 04/06/25 10:29 Labs: Laboratory Results - last 48 hr 04/02/25 04/03/25 10:00 07:58 Liver GGT 176 H Liver Total Bilirubin 1.3 H Liver Apolipoprotein A1 123 Liver Fibrosis ALT 122 H Liver [id number] 382 H Liver Haptoglobin 343 H Liver Fibrosis Score 0.82 Liver Fibrosis Interp SEE NOTE Liver Fibrosis Comment SEE NOTE Liver Fibrosis Stage F4 Necroinflammator Score 0.80 Necroinflam Score Cmmt SEE NOTE Necroinflammator Grade A3 Thyroid Stim Immunoglob 167 H HCV RNA Genotype LiPA TNP Ref Lab Specimen ID [id number] Imaging Radiology Impressions: ITS Impressions Thyroid Ultrasound 04/03/25 11:58 IMPRESSION: Heterogeneous hypervascular thyroid gland. No discrete nodules are identified. ACR TI-RADS Guidelines TR1 (0 points): Benign. No follow-up or biopsy required TR2 (2 points): Not Suspicious. No biopsy or follow up indicated TR3 (3 points): Mildly Suspicious. FNA if >= 2.5 cm, Follow if >= 1.5 cm TR4 (4-6 points): Moderately Suspicious. FNA if >= 1.5 cm, Follow if >= 1.0 cm TR5 (>=7 points): Highly Suspicious. FNA if >= 1.0 cm, Follow if >= 0.5 cm Electronically signed by: Garcaí Yonug MD 04/04/2025 07:08 AM EDT RP Abdomen X-Ray 04/05/25 11:25 IMPRESSION: No radiopaque foreign body is identified. Electronically signed by: García Young MD 04/05/2025 11:45 AM EDT RP Chest X-Ray 04/05/25 11:25 IMPRESSION: Clear lungs. No radiopaque foreign body is identified. Electronically signed by: García Young MD 04/05/2025 11:46 AM EDT RP Skull X-Ray 04/05/25 11:25 IMPRESSION: No radiopaque foreign body is identified. Electronically signed by: García Young MD 04/05/2025 11:47 AM EDT RP Medications Medications Current Medications Al Hydroxide/Mg Hydroxide (Magnesium Hydrox/Alum Hydrox 30 Ml Oral.Susp) 30 ml PO Q6H PRN PRN Reason: Heartburn/Nausea Alprazolam (Alprazolam 0.25 Mg Tablet) 0.25 mg PO TID [facility] Last Admin: 04/09/25 09:06 Dose: 0.25 mg Amlodipine Besylate (Amlodipine Besylate 5 Mg Tablet) 5 mg PO DAILY [facility]; Protocol Last Admin: 04/09/25 09:12 Dose: 5 mg Amoxicillin/Clavulanate Potassium (Amoxicillin/Potassium Clav 875 Mg Tablet) 875 mg PO Q12H [facility] Stop: 04/15/25 11:01 Last Admin: 04/09/25 10:54 Dose: 875 mg Aripiprazole (Aripiprazole 5 Mg Tablet) 5 mg PO DAILY [facility] Last Admin: 04/09/25 09:05 Dose: 5 mg Atorvastatin Calcium (Atorvastatin Calcium 80 Mg Tablet) 80 mg PO DAILY [facility] Last Admin: 04/09/25 09:09 Dose: 80 mg Carbamide Peroxide (Carbamide Peroxide 6.5% Otic 15 Ml Drpbtl) 5 drop EAR-BOTH BID [facility] Stop: 04/12/25 15:04 Last Admin: 04/09/25 09:10 Dose: 5 drop Magnesium Hydroxide (Milk Of Magnesia 30 Ml Oral.Susp) 30 ml PO DAILY PRN PRN Reason: Constipation Methimazole (Methimazole 10 Mg Tablet) 10 mg PO DAILY [facility] Last Admin: 04/09/25 09:09 Dose: 10 mg Metoprolol Succinate (Metoprolol Succinate Er 12.5 Mg Halftab.Er.24h) 12.5 mg PO DAILY [facility]; Protocol On Hold: 04/09/25 09:00 Mirtazapine (Mirtazapine 15 Mg Tablet) 15 mg PO BEDTIME [facility] Nicotine Polacrilex (Nicotine Polacrilex 2 Mg Gum) 4 mg BUCCAL Q2H PRN PRN Reason: Nicotine Cravings Olanzapine (Olanzapine 5 Mg Tablet) 5 mg PO TID PRN PRN Reason: agitation Omeprazole (Omeprazole 20 Mg Capsule.Dr) 20 mg PO DAILY@0630 [facility] Last Admin: 04/09/25 06:11 Dose: 20 mg Spironolactone (Spironolactone 25 Mg Tablet) 25 mg PO DAILY [facility]; Protocol Last Admin: 04/09/25 09:12 Dose: 25 mg Sumatriptan Succinate (Sumatriptan Succinate 50 Mg Tablet) 50 mg PO DAILY PRN PRN Reason: migrane Last Admin: 04/08/25 22:14 Dose: 50 mg Trazodone HCl (Trazodone Hcl 25 Mg Halftab) 25 mg PO BEDTIME MRX1 PRN PRN Reason: Insomnia Last Admin: 04/09/25 01:51 Dose: 25 mg Allergies Allergies Allergy/AdvReac Type Severity Reaction Status Date / Time codeine Allergy Intermediate hives Verified 03/28/25 21:43 NSAIDS (Non-Steroidal AdvReac Severe gi bleed Verified 04/05/25 10:40 Anti-Inflamma Assessment & Plan Assessment & Plan (1) MDD (major depressive disorder), recurrent episode, moderate: Status: Acute Code(s): F33.1 - Major depressive disorder, recurrent, moderate (2) Cognitive impairment: Status: Acute Code(s): R41.89 - Other symptoms and signs involving cognitive functions and awareness Assessment and Plan: r/o Major Neurocognitive Disorder- suspect of AD type. Plan Mrs. Martinez is a 70 year-old woman who was initially brought to [facility] due to weakness, profound lethargy and inability to care for herself. While in the ED, pt presented as agitated, combative and reported SI. Daughter reports pt has been struggling to care for herself (house without hot water, in condemnable condition and pt has not showered in several months). Pt is not able to recall events leading to this admission, despite the fact that she is oriented to month, year and place. We discussed risks, benefits and alternative treatment options. Will lower dose of xanax as pt this morning was more somnolent and lethargic although she had not received xanax. Lowered to 0.5mg po TID. continue effexor er 75mg po daily. Pt noted to have BP elevated but this was one point of care- will continue to monitor. No signs of benzo withdrawal. Pending MOCA/ACL. Will also check B12 (note that although no anemia, MCV was high). Repeat of CMP shows some degree of dehydration (elevated BUN from 14 to 23)- encourage fluids. PLAN 04/04 LFTs trending up, GI following, denies any abdominal pain, no vomiting, afebrile. pt confused as to why she is here, somewhat suspicious about her children wanting to leave her here. Will hold on starting medications until LFTs and bilirubin normalizes. Pending US of gallbladder today. 04/05 pt forgetful from day to day, confabulation with often seems more like blaming her children for doing things behind her back and thinks they are lying when advertising writer explains concern in terms of memory/cog impairments. 04/06 LFTs trending down. Will start abilify for mood/suspiciousness. 04/08 continue tx. 04/09: Continue current regimen and plans. Trial of Fioricet b.i.d. PRN Patient educated on: medication risk/benefits Reason for continued inpatient stay Substantial Risk for: med/psych decompensation Time Spent With Patient Time: Total time managing care of this patient today ____ minutes.
[2025-04-09] MEDS: Butalb/Acetamin/Caff 50/325/40 TABLET 1 TAB PO (18:39)
[2025-04-09 20:00] VITALS: BP 117/55; PULSE 55; RESP 16; TEMP 36.6; O2SAT 96
[2025-04-10 08:00] VITALS: BP 130/60; PULSE 53; RESP 14; TEMP 36.3; O2SAT 96
[2025-04-10 09:05] VITALS: BP 149/66
[2025-04-10] MEDS: Carbamide Peroxide 6.5% Otic 15 ML DRPBTL 5 DROP EAR-BOTH ×2 (09:05→20:15)
[2025-04-10 09:06] VITALS: BP 149/66
[2025-04-10 19:36] VITALS: BP 104/52; PULSE 50; RESP 15; TEMP 36.1; O2SAT 99
[2025-04-10] MEDS: Butalb/Acetamin/Caff 50/325/40 TABLET 1 TAB PO (22:40)
--- NOTE | 2025-04-11 08:51 | HO.PSYCHPN ---
Subjective Subjective Date of Service: 04/11/25 Reason For Visit: decompensation/ depression Subjective Notes: Conditional Voluntary Healthcare Proxy: Yes Interim History: Pt slept through the night. She presents somewhat irritable, stating no one has told me why I am here! She reports she is expecting answers today. Pt reports she does not know who is now living at her house or whether mortgage has been paid. She denied any physical concern. She has been more visible. She has gone to some groups. reading of MRI with neuroquant- still pending. She was started on Tapazole 10mg po daily for graves disease- newly dx here. HIDA scan for abdominal pain not completed due to pt declining- may need to reorder if pt presents with abdominal pain or again LFTs elevation. Medication Compliance: Yes Review of Systems Review of Systems Denies any shortness of breath, chest pain, dizziness, lightheadedness, abdominal pain or discomfort, nausea vomiting or diarrhea Yes all other systems are reviewed and are negative Diagnostics Vital Signs (24Hr): Vital Signs - 24 hr 04/10/25 09:05 04/10/25 09:06 04/10/25 19:36 Temperature 96.9 F Pulse Rate 50 Respiratory Rate 15 Blood Pressure 149/66 H 149/66 H 104/52 L Pulse Oximetry 99 Oxygen Delivery Method Room Air BMI result Body Mass Index 16.9 Labs 04/11/25 09:58 04/11/25 09:58 Imaging Radiology Impressions: ITS Impressions Thyroid Ultrasound 04/03/25 11:58 IMPRESSION: Heterogeneous hypervascular thyroid gland. No discrete nodules are identified. ACR TI-RADS Guidelines TR1 (0 points): Benign. No follow-up or biopsy required TR2 (2 points): Not Suspicious. No biopsy or follow up indicated TR3 (3 points): Mildly Suspicious. FNA if >= 2.5 cm, Follow if >= 1.5 cm TR4 (4-6 points): Moderately Suspicious. FNA if >= 1.5 cm, Follow if >= 1.0 cm TR5 (>=7 points): Highly Suspicious. FNA if >= 1.0 cm, Follow if >= 0.5 cm Electronically signed by: García Young MD 04/04/2025 07:08 AM EDT Abdomen X-Ray 04/05/25 11:25 IMPRESSION: No radiopaque foreign body is identified. Electronically signed by: García Young MD 04/05/2025 11:45 AM EDT RP Chest X-Ray 04/05/25 11:25 IMPRESSION: Clear lungs. No radiopaque foreign body is identified. Electronically signed by: García Young MD 04/05/2025 11:46 AM EDT RP Skull X-Ray 04/05/25 11:25 IMPRESSION: No radiopaque foreign body is identified. Electronically signed by: García Young MD 04/05/2025 11:47 AM EDT RP Medications Medications Current Medications Acetaminophen/Butalbital/Caffeine (Butalb/Acetamin/Caff 50/325/40 Tablet) 1 tab PO BID PRN PRN Reason: Pain, Moderate(Pain Scale 4-6) Last Admin: 04/10/25 22:40 Dose: 1 tab Al Hydroxide/Mg Hydroxide (Magnesium Hydrox/Alum Hydrox 30 Ml Oral.Susp) 30 ml PO Q6H PRN PRN Reason: Heartburn/Nausea Alprazolam (Alprazolam 0.25 Mg Tablet) 0.25 mg PO TID [facility] Last Admin: 04/10/25 20:14 Dose: 0.25 mg Amlodipine Besylate (Amlodipine Besylate 5 Mg Tablet) 5 mg PO DAILY [facility]; Protocol Last Admin: 04/10/25 09:06 Dose: 5 mg Amoxicillin/Clavulanate Potassium (Amoxicillin/Potassium Clav 875 Mg Tablet) 875 mg PO Q12H [facility] Stop: 04/15/25 11:01 Last Admin: 04/10/25 22:49 Dose: 875 mg Aripiprazole (Aripiprazole 5 Mg Tablet) 5 mg PO DAILY [facility] Last Admin: 04/10/25 09:05 Dose: 5 mg Atorvastatin Calcium (Atorvastatin Calcium 80 Mg Tablet) 80 mg PO DAILY [facility] Last Admin: 04/10/25 09:06 Dose: 80 mg Carbamide Peroxide (Carbamide Peroxide 6.5% Otic 15 Ml Drpbtl) 5 drop EAR-BOTH BID [facility] Stop: 04/12/25 15:04 Last Admin: 04/10/25 20:15 Dose: 5 drop Magnesium Hydroxide (Milk Of Magnesia 30 Ml Oral.Susp) 30 ml PO DAILY PRN PRN Reason: Constipation Methimazole (Methimazole 10 Mg Tablet) 10 mg PO DAILY [facility] Last Admin: 04/10/25 09:06 Dose: 10 mg Metoprolol Succinate (Metoprolol Succinate Er 12.5 Mg Halftab.Er.24h) 12.5 mg PO DAILY [facility]; Protocol On Hold: 04/09/25 09:00 Mirtazapine (Mirtazapine 15 Mg Tablet) 15 mg PO BEDTIME [facility] Last Admin: 04/10/25 20:16 Dose: 15 mg Nicotine Polacrilex (Nicotine Polacrilex 2 Mg Gum) 4 mg BUCCAL Q2H PRN PRN Reason: Nicotine Cravings Olanzapine (Olanzapine 5 Mg Tablet) 5 mg PO TID PRN PRN Reason: agitation Omeprazole (Omeprazole 20 Mg Capsule.Dr) 20 mg PO DAILY@0630 [facility] Last Admin: 04/11/25 06:18 Dose: 20 mg Spironolactone (Spironolactone 25 Mg Tablet) 25 mg PO DAILY [facility]; Protocol Last Admin: 04/10/25 09:05 Dose: 25 mg Sumatriptan Succinate (Sumatriptan Succinate 50 Mg Tablet) 50 mg PO DAILY PRN PRN Reason: migrane Last Admin: 04/08/25 22:14 Dose: 50 mg Trazodone HCl (Trazodone Hcl 25 Mg Halftab) 25 mg PO BEDTIME MRX1 PRN PRN Reason: Insomnia Last Admin: 04/09/25 22:19 Dose: 25 mg Allergies Allergies Allergy/AdvReac Type Severity Reaction Status Date / Time codeine Allergy Intermediate hives Verified 03/28/25 21:43 NSAIDS (Non-Steroidal AdvReac Severe gi bleed Verified 04/05/25 10:40 Anti-Inflamma Assessment & Plan Assessment & Plan (1) MDD (major depressive disorder), recurrent episode, moderate: Status: Acute Code(s): F33.1 - Major depressive disorder, recurrent, moderate (2) Cognitive impairment: Status: Acute Code(s): R41.89 - Other symptoms and signs involving cognitive functions and awareness Assessment and Plan: r/o Major Neurocognitive Disorder- suspect of AD type. Plan Mrs. Martinez is a 70 year-old woman who was initially brought to [facility] due to weakness, profound lethargy and inability to care for herself. While in the ED, pt presented as agitated, combative and reported SI. Daughter reports pt has been struggling to care for herself (house without hot water, in condemnable condition and pt has not showered in several months). Pt is not able to recall events leading to this admission, despite the fact that she is oriented to month, year and place. We discussed risks, benefits and alternative treatment options. Will lower dose of xanax as pt this morning was more somnolent and lethargic although she had not received xanax. Lowered to 0.5mg po TID. continue effexor er 75mg po daily. Pt noted to have BP elevated but this was one point of care- will continue to monitor. No signs of benzo withdrawal. Pending MOCA/ACL. Will also check B12 (note that although no anemia, MCV was high). Repeat of CMP shows some degree of dehydration (elevated BUN from 14 to 23)- encourage fluids. PLAN 04/04 LFTs trending up, GI following, denies any abdominal pain, no vomiting, afebrile. pt confused as to why she is here, somewhat suspicious about her children wanting to leave her here. Will hold on starting medications until LFTs and bilirubin normalizes. Pending US of gallbladder today. 04/05 pt forgetful from day to day, confabulation with often seems more like blaming her children for doing things behind her back and thinks they are lying when contract technical writer explains concern in terms of memory/cog impairments. 04/06 LFTs trending down. Will start abilify for mood/suspiciousness. 04/08 continue tx. 04/09: Continue current regimen and plans. Trial of Fioricet b.i.d. PRN 04/11 increase abilify for mood. reading of MRI with neuroquant- still pending. CAUTION WITH ACETAMINOPHEN AND LFTS. ALSO CAUTION WITH NSAID- not H&H down since admission. She was started on Tapazole 10mg po daily for graves disease- newly dx here. HIDA scan for abdominal pain not completed due to pt declining- may need to reorder if pt presents with abdominal pain or again LFTs elevation. Reason for continued inpatient stay Substantial Risk for: inability to function Time Spent With Patient Time: Total time managing care of this patient today ____ minutes.
[2025-04-11 09:03] VITALS: BP 169/73; PULSE 56; RESP 16; TEMP 36.3; O2SAT 98
[2025-04-11] MEDS: Carbamide Peroxide 6.5% Otic 15 ML DRPBTL 5 DROP EAR-BOTH ×2 (09:11→20:35)
--- NOTE | 2025-04-11 09:29 | P.PNIM_ITS ---
Subjective Subjective Date of Service: 04/11/25 Interval History: Feels well, denies any discomfort. Denies abdominal discomfort. Has been afebrile. Denies any ear pain. Review of Systems Denies any shortness of breath, chest pain, dizziness, lightheadedness, abdominal pain or discomfort, nausea vomiting or diarrhea Physical Exam 2 Exam: Exam: CONST: Alert and oriented, in NAD. Thin. HEENT: Normocephalic, atraumatic, MMM, Eyes clear, Neck supple RESP: Lungs clear, RRR even and regular HEART:,RRR, S1, S2. No murmur, no edema GI:Abdomen Soft NT, ND. + BS times four :Deferred SKIN: Warm dry and intact, no visible lesions or rashes NEURO:CN II-XII Intact bilaterally, Sensation intact. Speech clear PSYCH: Normal affect Vital Signs: Vital Signs: Last Vital Signs Temp 97.3 F 04/11/25 09:03 Pulse 56 04/11/25 09:03 Resp 16 04/11/25 09:03 BP 169/73 H 04/11/25 09:03 Pulse Ox 98 04/11/25 09:03 O2 Del Method Room Air 04/11/25 09:03 BMI result Body Mass Index 16.9 Objective Data Active Medications Acetaminophen/Butalbital/Caffeine (Butalb/Acetamin/Caff 50/325/40 Tablet) 1 tab PO BID PRN PRN Reason: Pain, Moderate(Pain Scale 4-6) Last Admin: 04/10/25 22:40 Dose: 1 tab Documented By: JOANNA Al Hydroxide/Mg Hydroxide (Magnesium Hydrox/Alum Hydrox 30 Ml Oral.Susp) 30 ml PO Q6H PRN PRN Reason: Heartburn/Nausea Alprazolam (Alprazolam 0.25 Mg Tablet) 0.25 mg PO TID [facility] Last Admin: 04/11/25 09:10 Dose: 0.25 mg Documented By: RACHEL Amlodipine Besylate (Amlodipine Besylate 5 Mg Tablet) 5 mg PO DAILY [facility]; Protocol Last Admin: 04/11/25 09:10 Dose: 5 mg Documented By: RACHEL Amoxicillin/Clavulanate Potassium (Amoxicillin/Potassium Clav 875 Mg Tablet) 875 mg PO Q12H [facility] Stop: 04/15/25 11:01 Last Admin: 04/10/25 22:49 Dose: 875 mg Documented By: JOANNA Aripiprazole (Aripiprazole 5 Mg Tablet) 5 mg PO DAILY [facility] Last Admin: 04/11/25 09:10 Dose: 5 mg Documented By: RACHEL Atorvastatin Calcium (Atorvastatin Calcium 80 Mg Tablet) 80 mg PO DAILY [facility] Last Admin: 04/11/25 09:10 Dose: 80 mg Documented By: RACHEL Carbamide Peroxide (Carbamide Peroxide 6.5% Otic 15 Ml Drpbtl) 5 drop EAR-BOTH BID [facility] Stop: 04/12/25 15:04 Last Admin: 04/11/25 09:11 Dose: 5 drop Documented By: RACHEL Magnesium Hydroxide (Milk Of Magnesia 30 Ml Oral.Susp) 30 ml PO DAILY PRN PRN Reason: Constipation Methimazole (Methimazole 10 Mg Tablet) 10 mg PO DAILY [facility] Last Admin: 04/11/25 09:10 Dose: 10 mg Documented By: RACHEL Metoprolol Succinate (Metoprolol Succinate Er 12.5 Mg Halftab.Er.24h) 12.5 mg PO DAILY [facility]; Protocol On Hold: 04/09/25 09:00 Mirtazapine (Mirtazapine 15 Mg Tablet) 15 mg PO BEDTIME [facility] Last Admin: 04/10/25 20:16 Dose: 15 mg Documented By: JOANNA Nicotine Polacrilex (Nicotine Polacrilex 2 Mg Gum) 4 mg BUCCAL Q2H PRN PRN Reason: Nicotine Cravings Olanzapine (Olanzapine 5 Mg Tablet) 5 mg PO TID PRN PRN Reason: agitation Omeprazole (Omeprazole 20 Mg Capsule.Dr) 20 mg PO DAILY@0630 [facility] Last Admin: 04/11/25 06:18 Dose: 20 mg Documented By: JOANNA Spironolactone (Spironolactone 25 Mg Tablet) 25 mg PO DAILY [facility]; Protocol Last Admin: 04/11/25 09:10 Dose: 25 mg Documented By: RACHEL Sumatriptan Succinate (Sumatriptan Succinate 50 Mg Tablet) 50 mg PO DAILY PRN PRN Reason: migrane Last Admin: 04/08/25 22:14 Dose: 50 mg Documented By: WARD Trazodone HCl (Trazodone Hcl 25 Mg Halftab) 25 mg PO BEDTIME MRX1 PRN PRN Reason: Insomnia Last Admin: 04/09/25 22:19 Dose: 25 mg Documented By: NICA Labs 04/11/25 09:58 04/11/25 09:58 Assessment and Plan (1) Graves disease: Status: Acute Plan Pt is a 70-year-old female with a PMH significant for?HLD/CAD, NSTEMI 17 years ago, HTN, HFpEF, aniety, and depression who is admitted to [facility] for increasing depression with SI. Pt initially presented to [facility] for profound lethargy and inability to function at home. Workup was negative except for undetectable TSH but T3 and T4 WNL. While in the ED pt became agitated with multiple outbursts, including throwing coffee, kicking and screaming, and swearing at staff. Pt was not redirectable and required IM Zyprexa. Seen today for right ear pain, transaminitis. . Right otitis media. Augmentin 875 mgs BID for 5 days Improved HTN/CAD/HLD Continue amlodipine. Reports hx of NSTEMI 17 years ago No longer taking aspirin or Plavix, unclear if pt stopped taking on her own or at direction of cardiology Continue statin Asymptomatic bradycardia Metoprolol DC Graves disease Thyroid ultrasound without nodules but noted to be hypervascular TSI and TRAb elevated. Free T3 elevated, T4 normal Continue Methimazole 10 mgs daily Repeat labs in one week. Follow labs every 4 weeks. Will need endocrinology follow up. Abdominal pain/transaminitis Abdominal pain resolved If reoccurs we will order HIDA scan Patient reports a history of Hep C- Viral panel undetectable. Patient with a history of EtOH use Abdominal pain resolved. Liver tests reviewed with Dr. Mauro. No further intervention as abdominal pain resolved. Patient refused HIDA scan Hx of HFpEF Not in acute exacerbation Continue spironolactone Thank you for allowing me to participate in the care of this patient. We will continue to follow as needed. Please reconsult of any acute concerns or issues arise Quality Stroke Does the patient have a stroke diagnosis?: No VTE Prior VTE?: No VTE Risk Level:: Medical - low VTE Device Contraindication: Treatment Not Indicated VTE Drug Contraindication: Treatment Not Indicated
[2025-04-11 10:25] LABS: MANUAL DIFF FLAG NO
[2025-04-11 10:31] LABS: Hematocrit 37.3 % (37.0-47.0); Hemoglobin 12.5 g/dl (12.0-16.0); Imm Gran Abs Auto 0.22 X10*3/uL (0.00-0.03); Imm Gran Pct Auto 1.8 % (0.0-0.4); Lymphocytes Absolute Auto 1.4 X10*3/uL (1.2-4.9); Mean Corpuscular HGB Conc 33.5 g/dl (31.0-35.0); Mean Corpuscular Hemoglobin 33.7 pg (27.0-33.0); Mean Corpuscular Volume 100.5 fL (80.0-98.0); NRBC Abs Auto 0.000 X10*3/uL (0.0-0.012); NRBC Pct Auto 0.0 /100WBC (0.0-0.2); Platelet Count 359 X10*3/uL (160-400); Red Blood Count 3.71 X10*6/uL (4.20-5.50); White Blood Count 12.0 X10*3/uL (4.8-10.8)
[2025-04-11 10:47] LABS: Alanine Aminotransferase 30 U/L (0-31); Albumin Level 3.9 g/dL (3.5-5.0); Alkaline Phosphatase 146 U/L (39-117); Anion Gap 13 (12-20); Aspartate Amino Transferase 26 U/L (5-31); Blood Urea Nitrogen 14 mg/dL (9-16); Calcium 9.8 mg/dL (8.4-10.2); Carbon Dioxide 27 mmol/L (22-29); Chloride 103 mmol/L (96-108); Creatinine Clr Calc Pharmacy 62.6; Estimated Glomerular Filt Rate > 60; Potassium 4.4 mmol/L (3.3-5.1); Sodium 139 mmol/L (135-145); Total Protein 7.1 g/dL (6.5-8.0)
--- NOTE | 2025-04-11 13:31 | MHC.CLN ---
F/U DIET=REGULAR. ENSURE TID PROVIDES 1050 KCALS, 60 G PROTEIN. CONTINUES WITH VARIABLE PO INTAKE, USUALLY 50-100%. NO NEW WEIGHT. HAS DX GRAVES DISEASE. CONTINUE TO FOLLOW FOR PO INTAKE. RD TO FOLLOW UP WEEKLY.
[2025-04-11 18:00] VITALS: BP 160/50; PULSE 56; RESP 16; TEMP 36.2; O2SAT 99
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
[2025-04-11 20:00] VITALS: BP 102/50; PULSE 45; RESP 16; TEMP 36.7; O2SAT 97
[2025-04-12 08:00] VITALS: BP 138/63; PULSE 42; RESP 16; TEMP 36.3; O2SAT 96
[2025-04-12 09:55] VITALS: BP 138/63
[2025-04-12] MEDS: Carbamide Peroxide 6.5% Otic 15 ML DRPBTL 5 DROP EAR-BOTH (10:10)
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
[2025-04-12 19:55] VITALS: BP 131/58; PULSE 44; RESP 16; TEMP 36.6; O2SAT 99
[2025-04-12] MEDS: Butalb/Acetamin/Caff 50/325/40 TABLET 1 TAB PO (20:57)
[2025-04-13 08:30] VITALS: BP 173/72; PULSE 48; RESP 16; TEMP 36.2; O2SAT 98
[2025-04-13] MEDS: Butalb/Acetamin/Caff 50/325/40 TABLET 1 TAB PO (11:09)
--- NOTE | 2025-04-13 11:48 | HO.PSYCHPN ---
Subjective Subjective Date of Service: 04/13/25 Reason For Visit: decompensation/ depression Interim History: states she is catching up on rest. poor sleep overnight due to loud peer in the cantu. declines addition of medication for sleep. did NOT request discharge today. no requests or complaints otherwise. per staff, asking for DC yesterday. pleasant, calm, suspicious of meds. denies pain. Mental Status Exam Mental Status Exam Narrative: In today's visit she is alert, oriented to time, place and person. Normal speech. Good eye contact. Affect is appropriate and calm. No acute signs of psychosis. No delusions. Cognitively appears to be better than she is on her testing. No SI expressed. Judgment is marginal Diagnostics Vital Signs (24Hr): Vital Signs - 24 hr 04/12/25 19:55 04/13/25 08:30 Temperature 97.9 F 97.2 F Pulse Rate 44 L 48 L Respiratory Rate 16 16 Blood Pressure 131/58 L 173/72 H Pulse Oximetry 99 98 Oxygen Delivery Method Room Air Room Air BMI result Body Mass Index 16.9 Labs 04/11/25 09:58 04/11/25 09:58 Imaging Radiology Impressions: ITS Impressions Thyroid Ultrasound 04/03/25 11:58 IMPRESSION: Heterogeneous hypervascular thyroid gland. No discrete nodules are identified. ACR TI-RADS Guidelines TR1 (0 points): Benign. No follow-up or biopsy required TR2 (2 points): Not Suspicious. No biopsy or follow up indicated TR3 (3 points): Mildly Suspicious. FNA if >= 2.5 cm, Follow if >= 1.5 cm TR4 (4-6 points): Moderately Suspicious. FNA if >= 1.5 cm, Follow if >= 1.0 cm TR5 (>=7 points): Highly Suspicious. FNA if >= 1.0 cm, Follow if >= 0.5 cm Electronically signed by: García Young MD 04/04/2025 07:08 AM EDT RP Abdomen X-Ray 04/05/25 11:25 IMPRESSION: No radiopaque foreign body is identified. Electronically signed by: García Young MD 04/05/2025 11:45 AM EDT RP Chest X-Ray 04/05/25 11:25 IMPRESSION: Clear lungs. No radiopaque foreign body is identified. Electronically signed by: García Young MD 04/05/2025 11:46 AM EDT RP Skull X-Ray 04/05/25 11:25 IMPRESSION: No radiopaque foreign body is identified. Electronically signed by: García Young MD 04/05/2025 11:47 AM EDT RP Medications Medications Current Medications Acetaminophen/Butalbital/Caffeine (Butalb/Acetamin/Caff 50/325/40 Tablet) 1 tab PO BID PRN PRN Reason: Pain, Moderate(Pain Scale 4-6) Last Admin: 04/13/25 11:09 Dose: 1 tab Al Hydroxide/Mg Hydroxide (Magnesium Hydrox/Alum Hydrox 30 Ml Oral.Susp) 30 ml PO Q6H PRN PRN Reason: Heartburn/Nausea Alprazolam (Alprazolam 0.25 Mg Tablet) 0.25 mg PO BID [facility] Last Admin: 04/13/25 09:12 Dose: 0.25 mg Amlodipine Besylate (Amlodipine Besylate 5 Mg Tablet) 5 mg PO DAILY [facility]; Protocol Last Admin: 04/13/25 09:12 Dose: 5 mg Amoxicillin/Clavulanate Potassium (Amoxicillin/Potassium Clav 875 Mg Tablet) 875 mg PO Q12H [facility] Stop: 04/15/25 11:01 Last Admin: 04/13/25 11:09 Dose: 875 mg Aripiprazole (Aripiprazole 10 Mg Tablet) 10 mg PO DAILY [facility] Last Admin: 04/13/25 09:10 Dose: 10 mg Atorvastatin Calcium (Atorvastatin Calcium 80 Mg Tablet) 80 mg PO DAILY [facility] Last Admin: 04/13/25 09:11 Dose: 80 mg Magnesium Hydroxide (Milk Of Magnesia 30 Ml Oral.Susp) 30 ml PO DAILY PRN PRN Reason: Constipation Methimazole (Methimazole 10 Mg Tablet) 10 mg PO DAILY [facility] Last Admin: 04/13/25 09:11 Dose: 10 mg Mirtazapine (Mirtazapine 15 Mg Tablet) 15 mg PO BEDTIME [facility] Last Admin: 04/12/25 20:57 Dose: 15 mg Nicotine Polacrilex (Nicotine Polacrilex 2 Mg Gum) 4 mg BUCCAL Q2H PRN PRN Reason: Nicotine Cravings Olanzapine (Olanzapine 5 Mg Tablet) 5 mg PO TID PRN PRN Reason: agitation Omeprazole (Omeprazole 20 Mg Capsule.) 20 mg PO DAILY@0630 [facility] Last Admin: 04/13/25 05:36 Dose: 20 mg Spironolactone (Spironolactone 25 Mg Tablet) 25 mg PO DAILY [facility]; Protocol Last Admin: 04/13/25 09:11 Dose: 25 mg Trazodone HCl (Trazodone Hcl 25 Mg Halftab) 25 mg PO BEDTIME MRX1 PRN PRN Reason: Insomnia Last Admin: 04/09/25 22:19 Dose: 25 mg Allergies Allergies Allergy/AdvReac Type Severity Reaction Status Date / Time codeine Allergy Intermediate hives Verified 03/28/25 21:43 NSAIDS (Non-Steroidal AdvReac Severe gi bleed Verified 04/05/25 10:40 Anti-Inflamma Assessment & Plan Assessment & Plan (1) Graves disease: Status: Acute Code(s): E05.00 - Thyrotoxicosis with diffuse goiter without thyrotoxic crisis or storm Assessment and Plan: Pt is a 70-year-old female with a PMH significant for?HLD/CAD, NSTEMI 17 years ago, HTN, HFpEF, aniety, and depression who is admitted to [facility] for increasing depression with SI. Pt initially presented to [facility] for profound lethargy and inability to function at home. Workup was negative except for undetectable TSH but T3 and T4 WNL. While in the ED pt became agitated with multiple outbursts, including throwing coffee, kicking and screaming, and swearing at staff. Pt was not redirectable and required IM Zyprexa. Seen today for right ear pain, transaminitis. . Right otitis media. Augmentin 875 mgs BID for 5 days Improved HTN/CAD/HLD Continue amlodipine. Reports hx of NSTEMI 17 years ago No longer taking aspirin or Plavix, unclear if pt stopped taking on her own or at direction of cardiology Continue statin Asymptomatic bradycardia Metoprolol DC Graves disease Thyroid ultrasound without nodules but noted to be hypervascular TSI and TRAb elevated. Free T3 elevated, T4 normal Continue Methimazole 10 mgs daily Repeat labs in one week. Follow labs every 4 weeks. Will need endocrinology follow up. Abdominal pain/transaminitis Abdominal pain resolved If reoccurs we will order HIDA scan Patient reports a history of Hep C- Viral panel undetectable. Patient with a history of EtOH use Abdominal pain resolved. Liver tests reviewed with Dr. Mauro. No further intervention as abdominal pain resolved. Patient refused HIDA scan Hx of HFpEF Not in acute exacerbation Continue spironolactone Thank you for allowing me to participate in the care of this patient. We will continue to follow as needed. Please reconsult of any acute concerns or issues arise (2) MDD (major depressive disorder), recurrent episode, moderate: Status: Acute Code(s): F33.1 - Major depressive disorder, recurrent, moderate (3) Cognitive impairment: Status: Acute Code(s): R41.89 - Other symptoms and signs involving cognitive functions and awareness Plan Mrs. Martinez is a 70 year-old woman who was initially brought to [facility] due to weakness, profound lethargy and inability to care for herself. While in the ED, pt presented as agitated, combative and reported SI. Daughter reports pt has been struggling to care for herself (house without hot water, in condemnable condition and pt has not showered in several months). Pt is not able to recall events leading to this admission, despite the fact that she is oriented to month, year and place. We discussed risks, benefits and alternative treatment options. Will lower dose of xanax as pt this morning was more somnolent and lethargic although she had not received xanax. Lowered to 0.5mg po TID. continue effexor er 75mg po daily. Pt noted to have BP elevated but this was one point of care- will continue to monitor. No signs of benzo withdrawal. Pending MOCA/ACL. Will also check B12 (note that although no anemia, MCV was high). Repeat of CMP shows some degree of dehydration (elevated BUN from 14 to 23)- encourage fluids. PLAN 04/04 LFTs trending up, GI following, denies any abdominal pain, no vomiting, afebrile. pt confused as to why she is here, somewhat suspicious about her children wanting to leave her here. Will hold on starting medications until LFTs and bilirubin normalizes. Pending US of gallbladder today. 04/05 pt forgetful from day to day, confabulation with often seems more like blaming her children for doing things behind her back and thinks they are lying when card writer hand explains concern in terms of memory/cog impairments. 04/06 LFTs trending down. Will start abilify for mood/suspiciousness. 04/08 continue tx. 04/09: Continue current regimen and plans. Trial of Fioricet b.i.d. PRN 04/11 increase abilify for mood. reading of MRI with neuroquant- still pending. CAUTION WITH ACETAMINOPHEN AND LFTS. ALSO CAUTION WITH NSAID- not H&H down since admission. She was started on Tapazole 10mg po daily for graves disease- newly dx here. HIDA scan for abdominal pain not completed due to pt declining- may need to reorder if pt presents with abdominal pain or again LFTs elevation. 04/12: stable, demented. asking about discharge home when awaiting placement. MRI c neuroquant pending. stable presentation. continue current mgmt for now. 04/13: poor sleep due to disruptive peer. resting today. no request for discharge. no behavioral issues. continue current mgmt. Reason for continued inpatient stay Substantial Risk for: inability to function Time Spent With Patient Time: Total time managing care of this patient today ____ minutes.
[2025-04-13 20:00] VITALS: BP 137/99; PULSE 57; RESP 18; TEMP 36.6; O2SAT 98
[2025-04-13] MEDS: traZODone HCL 25 MG HALFTAB PO (21:20)
[2025-04-14] MEDS: Butalb/Acetamin/Caff 50/325/40 TABLET 1 TAB PO ×2 (00:45→13:15)
[2025-04-14 07:00] VITALS: BMI 16.3
[2025-04-14 08:44] VITALS: BP 160/67; PULSE 50; RESP 18; TEMP 36.5; O2SAT 95
--- NOTE | 2025-04-14 12:28 | HO.PSYCHPN ---
Subjective Subjective Date of Service: 04/14/25 Reason For Visit: decompensation/ depression Interim History: reports she is trying to Settle some issues and feels trapped in a cage. c/o her sneakers' having been lost, dispo plans, daughters. informed of upcoming ACLS testing. per staff, irritable. eating 50%. agitated wanting to smoke. pushcing on doors. slept 5 hours. threw pen this morning in anger. [facility] 1530. Mental Status Exam Mental Status Exam Narrative: In today's visit she is alert, oriented to time, place and person. speech incr in rate and amount. thoughts moderately disorganized, circumstantial. Good eye contact. Affect is appropriate and calm. No acute signs of psychosis. No delusions. Cognitively appears to be better than she is on her testing. No SI expressed. Judgment is marginal Diagnostics Vital Signs (24Hr): Vital Signs - 24 hr 04/13/25 20:00 04/14/25 08:44 Temperature 97.9 F 97.7 F Pulse Rate 57 50 Respiratory Rate 18 18 Blood Pressure 137/99 H 160/67 H Pulse Oximetry 98 95 Oxygen Delivery Method Room Air Room Air BMI result Body Mass Index 16.9 Labs 04/11/25 09:58 04/11/25 09:58 Imaging Radiology Impressions: ITS Impressions Thyroid Ultrasound 04/03/25 11:58 IMPRESSION: Heterogeneous hypervascular thyroid gland. No discrete nodules are identified. ACR TI-RADS Guidelines TR1 (0 points): Benign. No follow-up or biopsy required TR2 (2 points): Not Suspicious. No biopsy or follow up indicated TR3 (3 points): Mildly Suspicious. FNA if >= 2.5 cm, Follow if >= 1.5 cm TR4 (4-6 points): Moderately Suspicious. FNA if >= 1.5 cm, Follow if >= 1.0 cm TR5 (>=7 points): Highly Suspicious. FNA if >= 1.0 cm, Follow if >= 0.5 cm Electronically signed by: García Young MD 04/04/2025 07:08 AM EDT Abdomen X-Ray 04/05/25 11:25 IMPRESSION: No radiopaque foreign body is identified. Electronically signed by: García Young MD 04/05/2025 11:45 AM EDT RP Chest X-Ray 04/05/25 11:25 IMPRESSION: Clear lungs. No radiopaque foreign body is identified. Electronically signed by: García Young MD 04/05/2025 11:46 AM EDT RP Skull X-Ray 04/05/25 11:25 IMPRESSION: No radiopaque foreign body is identified. Electronically signed by: García Young MD 04/05/2025 11:47 AM EDT RP Medications Medications Current Medications Acetaminophen (Acetaminophen 325 Mg Tablet) 650 mg PO Q6H PRN PRN Reason: Pain 1-10 or headache Last Admin: 04/13/25 17:29 Dose: 650 mg Acetaminophen/Butalbital/Caffeine (Butalb/Acetamin/Caff 50/325/40 Tablet) 1 tab PO BID PRN PRN Reason: Pain, Moderate(Pain Scale 4-6) Last Admin: 04/14/25 00:45 Dose: 1 tab Al Hydroxide/Mg Hydroxide (Magnesium Hydrox/Alum Hydrox 30 Ml Oral.Susp) 30 ml PO Q6H PRN PRN Reason: Heartburn/Nausea Alprazolam (Alprazolam 0.25 Mg Tablet) 0.25 mg PO BID PRN PRN Reason: agitation/anxiety Amlodipine Besylate (Amlodipine Besylate 5 Mg Tablet) 5 mg PO DAILY [facility]; Protocol Last Admin: 04/14/25 08:46 Dose: 5 mg Amoxicillin/Clavulanate Potassium (Amoxicillin/Potassium Clav 875 Mg Tablet) 875 mg PO Q12H [facility] Stop: 04/15/25 11:01 Last Admin: 04/14/25 12:12 Dose: 875 mg Aripiprazole (Aripiprazole 10 Mg Tablet) 10 mg PO DAILY [facility] Last Admin: 04/14/25 08:46 Dose: 10 mg Atorvastatin Calcium (Atorvastatin Calcium 80 Mg Tablet) 80 mg PO DAILY [facility] Last Admin: 04/14/25 08:46 Dose: 80 mg Magnesium Hydroxide (Milk Of Magnesia 30 Ml Oral.Susp) 30 ml PO DAILY PRN PRN Reason: Constipation Methimazole (Methimazole 10 Mg Tablet) 10 mg PO DAILY [facility] Last Admin: 04/14/25 08:46 Dose: 10 mg Mirtazapine (Mirtazapine 15 Mg Tablet) 15 mg PO BEDTIME [facility] Last Admin: 04/13/25 21:20 Dose: 15 mg Nicotine Polacrilex (Nicotine Polacrilex 2 Mg Gum) 4 mg BUCCAL Q2H PRN PRN Reason: Nicotine Cravings Olanzapine (Olanzapine 5 Mg Tablet) 5 mg PO TID PRN PRN Reason: agitation Omeprazole (Omeprazole 20 Mg Capsule.Dr) 20 mg PO DAILY@0630 [facility] Last Admin: 04/14/25 05:34 Dose: 20 mg Spironolactone (Spironolactone 25 Mg Tablet) 25 mg PO DAILY [facility]; Protocol Last Admin: 04/14/25 08:46 Dose: 25 mg Trazodone HCl (Trazodone Hcl 25 Mg Halftab) 25 mg PO BEDTIME MRX1 PRN PRN Reason: Insomnia Last Admin: 04/13/25 21:20 Dose: 25 mg Allergies Allergies Allergy/AdvReac Type Severity Reaction Status Date / Time codeine Allergy Intermediate hives Verified 03/28/25 21:43 NSAIDS (Non-Steroidal AdvReac Severe gi bleed Verified 04/05/25 10:40 Anti-Inflamma Assessment & Plan Assessment & Plan (1) Graves disease: Status: Acute Code(s): E05.00 - Thyrotoxicosis with diffuse goiter without thyrotoxic crisis or storm Assessment and Plan: Pt is a 70-year-old female with a PMH significant for?HLD/CAD, NSTEMI 17 years ago, HTN, HFpEF, aniety, and depression who is admitted to [facility] for increasing depression with SI. Pt initially presented to [facility] for profound lethargy and inability to function at home. Workup was negative except for undetectable TSH but T3 and T4 WNL. While in the ED pt became agitated with multiple outbursts, including throwing coffee, kicking and screaming, and swearing at staff. Pt was not redirectable and required IM Zyprexa. Seen today for right ear pain, transaminitis. . Right otitis media. Augmentin 875 mgs BID for 5 days Improved HTN/CAD/HLD Continue amlodipine. Reports hx of NSTEMI 17 years ago No longer taking aspirin or Plavix, unclear if pt stopped taking on her own or at direction of cardiology Continue statin Asymptomatic bradycardia Metoprolol DC Graves disease Thyroid ultrasound without nodules but noted to be hypervascular TSI and TRAb elevated. Free T3 elevated, T4 normal Continue Methimazole 10 mgs daily Repeat labs in one week. Follow labs every 4 weeks. Will need endocrinology follow up. Abdominal pain/transaminitis Abdominal pain resolved If reoccurs we will order HIDA scan Patient reports a history of Hep C- Viral panel undetectable. Patient with a history of EtOH use Abdominal pain resolved. Liver tests reviewed with Dr. Mauro. No further intervention as abdominal pain resolved. Patient refused HIDA scan Hx of HFpEF Not in acute exacerbation Continue spironolactone Thank you for allowing me to participate in the care of this patient. We will continue to follow as needed. Please reconsult of any acute concerns or issues arise (2) MDD (major depressive disorder), recurrent episode, moderate: Status: Acute Code(s): F33.1 - Major depressive disorder, recurrent, moderate (3) Cognitive impairment: Status: Acute Code(s): R41.89 - Other symptoms and signs involving cognitive functions and awareness Plan Mrs. Martinez is a 70 year-old woman who was initially brought to [facility] due to weakness, profound lethargy and inability to care for herself. While in the ED, pt presented as agitated, combative and reported SI. Daughter reports pt has been struggling to care for herself (house without hot water, in condemnable condition and pt has not showered in several months). Pt is not able to recall events leading to this admission, despite the fact that she is oriented to month, year and place. We discussed risks, benefits and alternative treatment options. Will lower dose of xanax as pt this morning was more somnolent and lethargic although she had not received xanax. Lowered to 0.5mg po TID. continue effexor er 75mg po daily. Pt noted to have BP elevated but this was one point of care- will continue to monitor. No signs of benzo withdrawal. Pending MOCA/ACL. Will also check B12 (note that although no anemia, MCV was high). Repeat of CMP shows some degree of dehydration (elevated BUN from 14 to 23)- encourage fluids. PLAN 04/04 LFTs trending up, GI following, denies any abdominal pain, no vomiting, afebrile. pt confused as to why she is here, somewhat suspicious about her children wanting to leave her here. Will hold on starting medications until LFTs and bilirubin normalizes. Pending US of gallbladder today. 04/05 pt forgetful from day to day, confabulation with often seems more like blaming her children for doing things behind her back and thinks they are lying when script writer explains concern in terms of memory/cog impairments. 04/06 LFTs trending down. Will start abilify for mood/suspiciousness. 04/08 continue tx. 04/09: Continue current regimen and plans. Trial of Fioricet b.i.d. PRN 04/11 increase abilify for mood. reading of MRI with neuroquant- still pending. CAUTION WITH ACETAMINOPHEN AND LFTS. ALSO CAUTION WITH NSAID- not H&H down since admission. She was started on Tapazole 10mg po daily for graves disease- newly dx here. HIDA scan for abdominal pain not completed due to pt declining- may need to reorder if pt presents with abdominal pain or again LFTs elevation. 04/12: stable, demented. asking about discharge home when awaiting placement. MRI c neuroquant pending. stable presentation. continue current mgmt for now. 04/13: poor sleep due to disruptive peer. resting today. no request for discharge. no behavioral issues. continue current mgmt. 04/14: slept 5 hours. somewhat hypomanic today, circumstantial and moderately disorganized. agreeable to stay for the time being, per SW. increase abilify to 15 mg daily for mood stability. call placed to radiology for read on MRI brain done 04/05/25. Reason for continued inpatient stay Substantial Risk for: inability to function and rapid decompensation Time Spent With Patient Time: Total time managing care of this patient today __25__ minutes.
[2025-04-14 20:52] VITALS: BP 179/77; RESP 18; TEMP 36.3; O2SAT 99
[2025-04-14 21:02] VITALS: PULSE 44
[2025-04-15 08:00] VITALS: BP 100/56; PULSE 41; RESP 14; TEMP 35.9; O2SAT 96
[2025-04-15 09:16] VITALS: BP 100/56
[2025-04-15 09:17] VITALS: BP 100/56
--- NOTE | 2025-04-15 11:50 | HO.PSYCHPN ---
Subjective Subjective Date of Service: 04/15/25 Reason For Visit: decompensation/ depression Interim History: resting, rousable. no complaints or requests, says she is just tired. denies poor sleep overnight. per staff, perseverative re telephone and lost shoes. napping afternoon. very poor recall, low frustration tolerance. difficulty completing ACLS. Mental Status Exam Mental Status Exam Narrative: In today's visit she is alert, oriented to time, place and person. speech nml in rate and amount. thoughts linear in very brief interaction. Good eye contact. Affect is appropriate and calm. No acute signs of psychosis. No delusions. No SI expressed. Judgment is impaired. Diagnostics Vital Signs (24Hr): Vital Signs - 24 hr 04/14/25 20:52 04/14/25 21:02 04/15/25 08:00 Temperature 97.3 F 96.7 F L Pulse Rate 44 L 41 L Respiratory Rate 18 14 Blood Pressure 179/77 H 100/56 L Pulse Oximetry 99 96 Oxygen Delivery Method Room Air Room Air 04/15/25 09:16 04/15/25 09:17 Temperature Pulse Rate Respiratory Rate Blood Pressure 100/56 L 100/56 L Pulse Oximetry Oxygen Delivery Method BMI result Body Mass Index 16.3 Labs 04/11/25 09:58 04/11/25 09:58 Imaging Radiology Impressions: ITS Impressions Thyroid Ultrasound 04/03/25 11:58 IMPRESSION: Heterogeneous hypervascular thyroid gland. No discrete nodules are identified. ACR TI-RADS Guidelines TR1 (0 points): Benign. No follow-up or biopsy required TR2 (2 points): Not Suspicious. No biopsy or follow up indicated TR3 (3 points): Mildly Suspicious. FNA if >= 2.5 cm, Follow if >= 1.5 cm TR4 (4-6 points): Moderately Suspicious. FNA if >= 1.5 cm, Follow if >= 1.0 cm TR5 (>=7 points): Highly Suspicious. FNA if >= 1.0 cm, Follow if >= 0.5 cm Electronically signed by: García Young MD 04/04/2025 07:08 AM EDT Abdomen X-Ray 04/05/25 11:25 IMPRESSION: No radiopaque foreign body is identified. Electronically signed by: García Young MD 04/05/2025 11:45 AM EDT RP Chest X-Ray 04/05/25 11:25 IMPRESSION: Clear lungs. No radiopaque foreign body is identified. Electronically signed by: García Young MD 04/05/2025 11:46 AM EDT RP Skull X-Ray 04/05/25 11:25 IMPRESSION: No radiopaque foreign body is identified. Electronically signed by: García Young MD 04/05/2025 11:47 AM EDT RP Medications Medications Current Medications Acetaminophen (Acetaminophen 325 Mg Tablet) 650 mg PO Q6H PRN PRN Reason: Pain 1-10 or headache Last Admin: 04/13/25 17:29 Dose: 650 mg Acetaminophen/Butalbital/Caffeine (Butalb/Acetamin/Caff 50/325/40 Tablet) 1 tab PO BID PRN PRN Reason: Pain, Moderate(Pain Scale 4-6) Last Admin: 04/14/25 13:15 Dose: 1 tab Al Hydroxide/Mg Hydroxide (Magnesium Hydrox/Alum Hydrox 30 Ml Oral.Susp) 30 ml PO Q6H PRN PRN Reason: Heartburn/Nausea Alprazolam (Alprazolam 0.25 Mg Tablet) 0.25 mg PO BID PRN PRN Reason: agitation/anxiety Amlodipine Besylate (Amlodipine Besylate 5 Mg Tablet) 5 mg PO DAILY [facility]; Protocol Last Admin: 04/15/25 09:16 Dose: 5 mg Aripiprazole (Aripiprazole 15 Mg Tablet) 15 mg PO DAILY [facility] Last Admin: 04/15/25 09:17 Dose: 15 mg Atorvastatin Calcium (Atorvastatin Calcium 80 Mg Tablet) 80 mg PO DAILY [facility] Last Admin: 04/15/25 09:17 Dose: 80 mg Magnesium Hydroxide (Milk Of Magnesia 30 Ml Oral.Susp) 30 ml PO DAILY PRN PRN Reason: Constipation Methimazole (Methimazole 10 Mg Tablet) 10 mg PO DAILY [facility] Last Admin: 04/15/25 09:17 Dose: 10 mg Mirtazapine (Mirtazapine 15 Mg Tablet) 15 mg PO BEDTIME [facility] Last Admin: 04/14/25 20:31 Dose: 15 mg Nicotine Polacrilex (Nicotine Polacrilex 2 Mg Gum) 4 mg BUCCAL Q2H PRN PRN Reason: Nicotine Cravings Olanzapine (Olanzapine 5 Mg Tablet) 5 mg PO TID PRN PRN Reason: agitation Omeprazole (Omeprazole 20 Mg Capsule.) 20 mg PO DAILY@0630 [facility] Last Admin: 04/15/25 05:43 Dose: 20 mg Spironolactone (Spironolactone 25 Mg Tablet) 25 mg PO DAILY [facility]; Protocol Last Admin: 04/15/25 09:17 Dose: 25 mg Trazodone HCl (Trazodone Hcl 25 Mg Halftab) 25 mg PO BEDTIME MRX1 PRN PRN Reason: Insomnia Last Admin: 04/13/25 21:20 Dose: 25 mg Allergies Allergies Allergy/AdvReac Type Severity Reaction Status Date / Time codeine Allergy Intermediate hives Verified 03/28/25 21:43 NSAIDS (Non-Steroidal AdvReac Severe gi bleed Verified 04/05/25 10:40 Anti-Inflamma Assessment & Plan Assessment & Plan (1) Graves disease: Status: Acute Code(s): E05.00 - Thyrotoxicosis with diffuse goiter without thyrotoxic crisis or storm Assessment and Plan: Pt is a 70-year-old female with a PMH significant for?HLD/CAD, NSTEMI 17 years ago, HTN, HFpEF, aniety, and depression who is admitted to [facility] for increasing depression with SI. Pt initially presented to [facility] for profound lethargy and inability to function at home. Workup was negative except for undetectable TSH but T3 and T4 WNL. While in the ED pt became agitated with multiple outbursts, including throwing coffee, kicking and screaming, and swearing at staff. Pt was not redirectable and required IM Zyprexa. Seen today for right ear pain, transaminitis. . Right otitis media. Augmentin 875 mgs BID for 5 days Improved HTN/CAD/HLD Continue amlodipine. Reports hx of NSTEMI 17 years ago No longer taking aspirin or Plavix, unclear if pt stopped taking on her own or at direction of cardiology Continue statin Asymptomatic bradycardia Metoprolol DC Graves disease Thyroid ultrasound without nodules but noted to be hypervascular TSI and TRAb elevated. Free T3 elevated, T4 normal Continue Methimazole 10 mgs daily Repeat labs in one week. Follow labs every 4 weeks. Will need endocrinology follow up. Abdominal pain/transaminitis Abdominal pain resolved If reoccurs we will order HIDA scan Patient reports a history of Hep C- Viral panel undetectable. Patient with a history of EtOH use Abdominal pain resolved. Liver tests reviewed with Dr. Mauro. No further intervention as abdominal pain resolved. Patient refused HIDA scan Hx of HFpEF Not in acute exacerbation Continue spironolactone Thank you for allowing me to participate in the care of this patient. We will continue to follow as needed. Please reconsult of any acute concerns or issues arise (2) MDD (major depressive disorder), recurrent episode, moderate: Status: Acute Code(s): F33.1 - Major depressive disorder, recurrent, moderate (3) Cognitive impairment: Status: Acute Code(s): R41.89 - Other symptoms and signs involving cognitive functions and awareness Plan Mrs. Martinez is a 70 year-old woman who was initially brought to [facility] due to weakness, profound lethargy and inability to care for herself. While in the ED, pt presented as agitated, combative and reported SI. Daughter reports pt has been struggling to care for herself (house without hot water, in condemnable condition and pt has not showered in several months). Pt is not able to recall events leading to this admission, despite the fact that she is oriented to month, year and place. We discussed risks, benefits and alternative treatment options. Will lower dose of xanax as pt this morning was more somnolent and lethargic although she had not received xanax. Lowered to 0.5mg po TID. continue effexor er 75mg po daily. Pt noted to have BP elevated but this was one point of care- will continue to monitor. No signs of benzo withdrawal. Pending MOCA/ACL. Will also check B12 (note that although no anemia, MCV was high). Repeat of CMP shows some degree of dehydration (elevated BUN from 14 to 23)- encourage fluids. PLAN 04/04 LFTs trending up, GI following, denies any abdominal pain, no vomiting, afebrile. pt confused as to why she is here, somewhat suspicious about her children wanting to leave her here. Will hold on starting medications until LFTs and bilirubin normalizes. Pending US of gallbladder today. 04/05 pt forgetful from day to day, confabulation with often seems more like blaming her children for doing things behind her back and thinks they are lying when procedure writer explains concern in terms of memory/cog impairments. 04/06 LFTs trending down. Will start abilify for mood/suspiciousness. 04/08 continue tx. 04/09: Continue current regimen and plans. Trial of Fioricet b.i.d. PRN 04/11 increase abilify for mood. reading of MRI with neuroquant- still pending. CAUTION WITH ACETAMINOPHEN AND LFTS. ALSO CAUTION WITH NSAID- not H&H down since admission. She was started on Tapazole 10mg po daily for graves disease- newly dx here. HIDA scan for abdominal pain not completed due to pt declining- may need to reorder if pt presents with abdominal pain or again LFTs elevation. 04/12: stable, demented. asking about discharge home when awaiting placement. MRI c neuroquant pending. stable presentation. continue current mgmt for now. 04/13: poor sleep due to disruptive peer. resting today. no request for discharge. no behavioral issues. continue current mgmt. 04/14: slept 5 hours. somewhat hypomanic today, circumstantial and moderately disorganized. agreeable to stay for the time being, per SW. increase abilify to 15 mg daily for mood stability. call placed to radiology for read on MRI brain done 04/05/25. 04/15: head MRI read remains absent. stable presentation. resting today, not activated or irritable. continue current mgmt. Reason for continued inpatient stay Substantial Risk for: inability to function Time Spent With Patient Time: Total time managing care of this patient today ____ minutes.
[2025-04-15] MEDS: Butalb/Acetamin/Caff 50/325/40 TABLET 1 TAB PO (18:06)
[2025-04-15 20:00] VITALS: BP 114/68; PULSE 40; RESP 16; TEMP 36.3; O2SAT 98
[2025-04-16 09:10] VITALS: BP 168/70; PULSE 42; RESP 16; TEMP 36.3; O2SAT 95
[2025-04-16] MEDS: Butalb/Acetamin/Caff 50/325/40 TABLET 1 TAB PO ×2 (09:36→16:54)
--- NOTE | 2025-04-16 10:02 | HO.PSYCHPN ---
Subjective Subjective Date of Service: 04/16/25 Reason For Visit: decompensation/ depression Interim History: c/o feeling tired. seems less labile and irritable, more organized than prior. no questions or complaints. per staff, in bed all day. LFTs trending down (Hep C Dx recently). slept 8 hours. Mental Status Exam Mental Status Exam Narrative: In today's visit she is alert, oriented to time, place and person. speech nml in rate and amount. thoughts linear in brief interaction. Good eye contact. Affect is appropriate and calm. No acute signs of psychosis. No delusions. No SI expressed. Judgment is impaired. Diagnostics Vital Signs (24Hr): Vital Signs - 24 hr 04/15/25 20:00 04/16/25 09:10 Temperature 97.3 F 97.3 F Pulse Rate 40 L 42 L Respiratory Rate 16 16 Blood Pressure 114/68 168/70 H Pulse Oximetry 98 95 Oxygen Delivery Method Room Air Room Air BMI result Body Mass Index 16.3 Labs 04/11/25 09:58 04/11/25 09:58 Imaging Radiology Impressions: ITS Impressions Thyroid Ultrasound 04/03/25 11:58 IMPRESSION: Heterogeneous hypervascular thyroid gland. No discrete nodules are identified. ACR TI-RADS Guidelines TR1 (0 points): Benign. No follow-up or biopsy required TR2 (2 points): Not Suspicious. No biopsy or follow up indicated TR3 (3 points): Mildly Suspicious. FNA if >= 2.5 cm, Follow if >= 1.5 cm TR4 (4-6 points): Moderately Suspicious. FNA if >= 1.5 cm, Follow if >= 1.0 cm TR5 (>=7 points): Highly Suspicious. FNA if >= 1.0 cm, Follow if >= 0.5 cm Electronically signed by: García oYung MD 04/04/2025 07:08 AM EDT RP Abdomen X-Ray 04/05/25 11:25 IMPRESSION: No radiopaque foreign body is identified. Electronically signed by: García Young MD 04/05/2025 11:45 AM EDT RP Chest X-Ray 04/05/25 11:25 IMPRESSION: Clear lungs. No radiopaque foreign body is identified. Electronically signed by: García Young MD 04/05/2025 11:46 AM EDT RP Skull X-Ray 04/05/25 11:25 IMPRESSION: No radiopaque foreign body is identified. Electronically signed by: García Young MD 04/05/2025 11:47 AM EDT RP Medications Medications Current Medications Acetaminophen (Acetaminophen 325 Mg Tablet) 650 mg PO Q6H PRN PRN Reason: Pain 1-10 or headache Last Admin: 04/13/25 17:29 Dose: 650 mg Acetaminophen/Butalbital/Caffeine (Butalb/Acetamin/Caff 50/325/40 Tablet) 1 tab PO BID PRN PRN Reason: Pain, Moderate(Pain Scale 4-6) Last Admin: 04/16/25 09:36 Dose: 1 tab Al Hydroxide/Mg Hydroxide (Magnesium Hydrox/Alum Hydrox 30 Ml Oral.Susp) 30 ml PO Q6H PRN PRN Reason: Heartburn/Nausea Alprazolam (Alprazolam 0.25 Mg Tablet) 0.25 mg PO BID PRN PRN Reason: agitation/anxiety Amlodipine Besylate (Amlodipine Besylate 5 Mg Tablet) 5 mg PO DAILY [facility]; Protocol Last Admin: 04/16/25 09:14 Dose: 5 mg Aripiprazole (Aripiprazole 15 Mg Tablet) 15 mg PO DAILY [facility] Last Admin: 04/16/25 09:16 Dose: 15 mg Atorvastatin Calcium (Atorvastatin Calcium 80 Mg Tablet) 80 mg PO DAILY [facility] Last Admin: 04/16/25 09:14 Dose: 80 mg Magnesium Hydroxide (Milk Of Magnesia 30 Ml Oral.Susp) 30 ml PO DAILY PRN PRN Reason: Constipation Methimazole (Methimazole 10 Mg Tablet) 10 mg PO DAILY [facility] Last Admin: 04/16/25 09:15 Dose: 10 mg Mirtazapine (Mirtazapine 15 Mg Tablet) 15 mg PO BEDTIME [facility] Last Admin: 04/15/25 20:36 Dose: 15 mg Nicotine Polacrilex (Nicotine Polacrilex 2 Mg Gum) 4 mg BUCCAL Q2H PRN PRN Reason: Nicotine Cravings Olanzapine (Olanzapine 5 Mg Tablet) 5 mg PO TID PRN PRN Reason: agitation Omeprazole (Omeprazole 20 Mg Capsule.Dr) 20 mg PO DAILY@0630 [facility] Last Admin: 04/16/25 06:22 Dose: 20 mg Spironolactone (Spironolactone 25 Mg Tablet) 25 mg PO DAILY [facility]; Protocol Last Admin: 04/16/25 09:15 Dose: 25 mg Trazodone HCl (Trazodone Hcl 25 Mg Halftab) 25 mg PO BEDTIME MRX1 PRN PRN Reason: Insomnia Last Admin: 04/13/25 21:20 Dose: 25 mg Allergies Allergies Allergy/AdvReac Type Severity Reaction Status Date / Time codeine Allergy Intermediate hives Verified 03/28/25 21:43 NSAIDS (Non-Steroidal AdvReac Severe gi bleed Verified 04/05/25 10:40 Anti-Inflamma Assessment & Plan Assessment & Plan (1) Graves disease: Status: Acute Code(s): E05.00 - Thyrotoxicosis with diffuse goiter without thyrotoxic crisis or storm Assessment and Plan: Pt is a 70-year-old female with a PMH significant for?HLD/CAD, NSTEMI 17 years ago, HTN, HFpEF, aniety, and depression who is admitted to [facility] for increasing depression with SI. Pt initially presented to [facility] for profound lethargy and inability to function at home. Workup was negative except for undetectable TSH but T3 and T4 WNL. While in the ED pt became agitated with multiple outbursts, including throwing coffee, kicking and screaming, and swearing at staff. Pt was not redirectable and required IM Zyprexa. Seen today for right ear pain, transaminitis. . Right otitis media. Augmentin 875 mgs BID for 5 days Improved HTN/CAD/HLD Continue amlodipine. Reports hx of NSTEMI 17 years ago No longer taking aspirin or Plavix, unclear if pt stopped taking on her own or at direction of cardiology Continue statin Asymptomatic bradycardia Metoprolol DC Graves disease Thyroid ultrasound without nodules but noted to be hypervascular TSI and TRAb elevated. Free T3 elevated, T4 normal Continue Methimazole 10 mgs daily Repeat labs in one week. Follow labs every 4 weeks. Will need endocrinology follow up. Abdominal pain/transaminitis Abdominal pain resolved If reoccurs we will order HIDA scan Patient reports a history of Hep C- Viral panel undetectable. Patient with a history of EtOH use Abdominal pain resolved. Liver tests reviewed with Dr. Mauro. No further intervention as abdominal pain resolved. Patient refused HIDA scan Hx of HFpEF Not in acute exacerbation Continue spironolactone Thank you for allowing me to participate in the care of this patient. We will continue to follow as needed. Please reconsult of any acute concerns or issues arise (2) MDD (major depressive disorder), recurrent episode, moderate: Status: Acute Code(s): F33.1 - Major depressive disorder, recurrent, moderate (3) Cognitive impairment: Status: Acute Code(s): R41.89 - Other symptoms and signs involving cognitive functions and awareness Plan Mrs. Martinez is a 70 year-old woman who was initially brought to [facility] due to weakness, profound lethargy and inability to care for herself. While in the ED, pt presented as agitated, combative and reported SI. Daughter reports pt has been struggling to care for herself (house without hot water, in condemnable condition and pt has not showered in several months). Pt is not able to recall events leading to this admission, despite the fact that she is oriented to month, year and place. We discussed risks, benefits and alternative treatment options. Will lower dose of xanax as pt this morning was more somnolent and lethargic although she had not received xanax. Lowered to 0.5mg po TID. continue effexor er 75mg po daily. Pt noted to have BP elevated but this was one point of care- will continue to monitor. No signs of benzo withdrawal. Pending MOCA/ACL. Will also check B12 (note that although no anemia, MCV was high). Repeat of CMP shows some degree of dehydration (elevated BUN from 14 to 23)- encourage fluids. PLAN 04/04 LFTs trending up, GI following, denies any abdominal pain, no vomiting, afebrile. pt confused as to why she is here, somewhat suspicious about her children wanting to leave her here. Will hold on starting medications until LFTs and bilirubin normalizes. Pending US of gallbladder today. 04/05 pt forgetful from day to day, confabulation with often seems more like blaming her children for doing things behind her back and thinks they are lying when insurance writer explains concern in terms of memory/cog impairments. 04/06 LFTs trending down. Will start abilify for mood/suspiciousness. 04/08 continue tx. 04/09: Continue current regimen and plans. Trial of Fioricet b.i.d. PRN 04/11 increase abilify for mood. reading of MRI with neuroquant- still pending. CAUTION WITH ACETAMINOPHEN AND LFTS. ALSO CAUTION WITH NSAID- not H&H down since admission. She was started on Tapazole 10mg po daily for graves disease- newly dx here. HIDA scan for abdominal pain not completed due to pt declining- may need to reorder if pt presents with abdominal pain or again LFTs elevation. 04/12: stable, demented. asking about discharge home when awaiting placement. MRI c neuroquant pending. stable presentation. continue current mgmt for now. 04/13: poor sleep due to disruptive peer. resting today. no request for discharge. no behavioral issues. continue current mgmt. 04/14: slept 5 hours. somewhat hypomanic today, circumstantial and moderately disorganized. agreeable to stay for the time being, per SW. increase abilify to 15 mg daily for mood stability. call placed to radiology for read on MRI brain done 04/05/25. 04/15: head MRI read remains absent. stable presentation. resting today, not activated or irritable. continue current mgmt. 04/16: stable presentation. remains a bit more organized and less labile than prior, since increase in abilify dosing. also a bit more tired. T/C moving abilify to HS to prevent daytime sedation. Reason for continued inpatient stay Substantial Risk for: inability to function Time Spent With Patient Time: Total time managing care of this patient today ____ minutes.
[2025-04-16 20:00] VITALS: BP 121/59; PULSE 45; RESP 17; TEMP 36.5; O2SAT 98
[2025-04-17 09:00] VITALS: BP 104/64; PULSE 40; RESP 14; TEMP 36.4; O2SAT 97
--- NOTE | 2025-04-17 13:29 | HO.PSYCHPN ---
Subjective Subjective Date of Service: 04/17/25 Reason For Visit: decompensation/ depression Interim History: reports she slept well, no issues. no requests or complaints. per staff, eating well. anx/dep 7. showered. RAMIRES, got fiorocet x2 yesterday. MN agitated and angry. Mental Status Exam Mental Status Exam Narrative: In today's visit she is alert, oriented to time, place and person. speech nml in rate and amount. thoughts linear in brief interaction. Good eye contact. Affect is appropriate and calm. No acute signs of psychosis. No delusions. No SI expressed. Judgment is impaired. Diagnostics Vital Signs (24Hr): Vital Signs - 24 hr 04/16/25 20:00 04/17/25 09:00 Temperature 97.7 F 97.5 F Pulse Rate 45 L 40 L Respiratory Rate 17 14 Blood Pressure 121/59 L 104/64 Pulse Oximetry 98 97 Oxygen Delivery Method Room Air Room Air BMI result Body Mass Index 16.3 Labs 04/11/25 09:58 04/11/25 09:58 Imaging Radiology Impressions: ITS Impressions Thyroid Ultrasound 04/03/25 11:58 IMPRESSION: Heterogeneous hypervascular thyroid gland. No discrete nodules are identified. ACR TI-RADS Guidelines TR1 (0 points): Benign. No follow-up or biopsy required TR2 (2 points): Not Suspicious. No biopsy or follow up indicated TR3 (3 points): Mildly Suspicious. FNA if >= 2.5 cm, Follow if >= 1.5 cm TR4 (4-6 points): Moderately Suspicious. FNA if >= 1.5 cm, Follow if >= 1.0 cm TR5 (>=7 points): Highly Suspicious. FNA if >= 1.0 cm, Follow if >= 0.5 cm Electronically signed by: García Young MD 04/04/2025 07:08 AM EDT RP Abdomen X-Ray 04/05/25 11:25 IMPRESSION: No radiopaque foreign body is identified. Electronically signed by: García Young MD 04/05/2025 11:45 AM EDT RP Chest X-Ray 04/05/25 11:25 IMPRESSION: Clear lungs. No radiopaque foreign body is identified. Electronically signed by: García Yonug MD 04/05/2025 11:46 AM EDT RP Skull X-Ray 04/05/25 11:25 IMPRESSION: No radiopaque foreign body is identified. Electronically signed by: García Young MD 04/05/2025 11:47 AM EDT RP Medications Medications Current Medications Acetaminophen (Acetaminophen 325 Mg Tablet) 650 mg PO Q6H PRN PRN Reason: Pain 1-10 or headache Last Admin: 04/17/25 03:20 Dose: 650 mg Acetaminophen/Butalbital/Caffeine (Butalb/Acetamin/Caff 50/325/40 Tablet) 1 tab PO BID PRN PRN Reason: Pain, Moderate(Pain Scale 4-6) Last Admin: 04/16/25 16:54 Dose: 1 tab Al Hydroxide/Mg Hydroxide (Magnesium Hydrox/Alum Hydrox 30 Ml Oral.Susp) 30 ml PO Q6H PRN PRN Reason: Heartburn/Nausea Alprazolam (Alprazolam 0.25 Mg Tablet) 0.25 mg PO BID PRN PRN Reason: agitation/anxiety Last Admin: 04/16/25 22:21 Dose: 0.25 mg Amlodipine Besylate (Amlodipine Besylate 5 Mg Tablet) 5 mg PO DAILY [facility]; Protocol Last Admin: 04/17/25 09:08 Dose: 5 mg Aripiprazole (Aripiprazole 15 Mg Tablet) 15 mg PO DAILY [facility] Last Admin: 04/17/25 09:09 Dose: 15 mg Atorvastatin Calcium (Atorvastatin Calcium 80 Mg Tablet) 80 mg PO DAILY [facility] Last Admin: 04/17/25 09:08 Dose: 80 mg Magnesium Hydroxide (Milk Of Magnesia 30 Ml Oral.Susp) 30 ml PO DAILY PRN PRN Reason: Constipation Methimazole (Methimazole 10 Mg Tablet) 10 mg PO DAILY [facility] Last Admin: 04/17/25 09:09 Dose: 10 mg Mirtazapine (Mirtazapine 15 Mg Tablet) 15 mg PO BEDTIME ROGELIO Last Admin: 04/16/25 20:56 Dose: 15 mg Nicotine Polacrilex (Nicotine Polacrilex 2 Mg Gum) 4 mg BUCCAL Q2H PRN PRN Reason: Nicotine Cravings Olanzapine (Olanzapine 5 Mg Tablet) 5 mg PO TID PRN PRN Reason: agitation Omeprazole (Omeprazole 20 Mg Capsule.Dr) 20 mg PO DAILY@0630 [facility] Last Admin: 04/17/25 06:35 Dose: 20 mg Spironolactone (Spironolactone 25 Mg Tablet) 25 mg PO DAILY [facility]; Protocol Last Admin: 04/17/25 09:09 Dose: 25 mg Trazodone HCl (Trazodone Hcl 25 Mg Halftab) 25 mg PO BEDTIME MRX1 PRN PRN Reason: Insomnia Last Admin: 04/13/25 21:20 Dose: 25 mg Trazodone HCl (Trazodone Hcl 25 Mg Halftab) 12.5 mg PO Q4H PRN PRN Reason: anxiety/agitation Allergies Allergies Allergy/AdvReac Type Severity Reaction Status Date / Time codeine Allergy Intermediate hives Verified 03/28/25 21:43 NSAIDS (Non-Steroidal AdvReac Severe gi bleed Verified 04/05/25 10:40 Anti-Inflamma Assessment & Plan Assessment & Plan (1) Graves disease: Status: Acute Code(s): E05.00 - Thyrotoxicosis with diffuse goiter without thyrotoxic crisis or storm Assessment and Plan: Pt is a 70-year-old female with a PMH significant for?HLD/CAD, NSTEMI 17 years ago, HTN, HFpEF, aniety, and depression who is admitted to [facility] for increasing depression with SI. Pt initially presented to [facility] for profound lethargy and inability to function at home. Workup was negative except for undetectable TSH but T3 and T4 WNL. While in the ED pt became agitated with multiple outbursts, including throwing coffee, kicking and screaming, and swearing at staff. Pt was not redirectable and required IM Zyprexa. Seen today for right ear pain, transaminitis. . Right otitis media. Augmentin 875 mgs BID for 5 days Improved HTN/CAD/HLD Continue amlodipine. Reports hx of NSTEMI 17 years ago No longer taking aspirin or Plavix, unclear if pt stopped taking on her own or at direction of cardiology Continue statin Asymptomatic bradycardia Metoprolol DC Graves disease Thyroid ultrasound without nodules but noted to be hypervascular TSI and TRAb elevated. Free T3 elevated, T4 normal Continue Methimazole 10 mgs daily Repeat labs in one week. Follow labs every 4 weeks. Will need endocrinology follow up. Abdominal pain/transaminitis Abdominal pain resolved If reoccurs we will order HIDA scan Patient reports a history of Hep C- Viral panel undetectable. Patient with a history of EtOH use Abdominal pain resolved. Liver tests reviewed with Dr. Mauro. No further intervention as abdominal pain resolved. Patient refused HIDA scan Hx of HFpEF Not in acute exacerbation Continue spironolactone Thank you for allowing me to participate in the care of this patient. We will continue to follow as needed. Please reconsult of any acute concerns or issues arise (2) MDD (major depressive disorder), recurrent episode, moderate: Status: Acute Code(s): F33.1 - Major depressive disorder, recurrent, moderate (3) Cognitive impairment: Status: Acute Code(s): R41.89 - Other symptoms and signs involving cognitive functions and awareness Plan Mrs. Martinez is a 70 year-old woman who was initially brought to [facility] due to weakness, profound lethargy and inability to care for herself. While in the ED, pt presented as agitated, combative and reported SI. Daughter reports pt has been struggling to care for herself (house without hot water, in condemnable condition and pt has not showered in several months). Pt is not able to recall events leading to this admission, despite the fact that she is oriented to month, year and place. We discussed risks, benefits and alternative treatment options. Will lower dose of xanax as pt this morning was more somnolent and lethargic although she had not received xanax. Lowered to 0.5mg po TID. continue effexor er 75mg po daily. Pt noted to have BP elevated but this was one point of care- will continue to monitor. No signs of benzo withdrawal. Pending MOCA/ACL. Will also check B12 (note that although no anemia, MCV was high). Repeat of CMP shows some degree of dehydration (elevated BUN from 14 to 23)- encourage fluids. PLAN 04/04 LFTs trending up, GI following, denies any abdominal pain, no vomiting, afebrile. pt confused as to why she is here, somewhat suspicious about her children wanting to leave her here. Will hold on starting medications until LFTs and bilirubin normalizes. Pending US of gallbladder today. 04/05 pt forgetful from day to day, confabulation with often seems more like blaming her children for doing things behind her back and thinks they are lying when development writer explains concern in terms of memory/cog impairments. 04/06 LFTs trending down. Will start abilify for mood/suspiciousness. 04/08 continue tx. 04/09: Continue current regimen and plans. Trial of Fioricet b.i.d. PRN 04/11 increase abilify for mood. reading of MRI with neuroquant- still pending. CAUTION WITH ACETAMINOPHEN AND LFTS. ALSO CAUTION WITH NSAID- not H&H down since admission. She was started on Tapazole 10mg po daily for graves disease- newly dx here. HIDA scan for abdominal pain not completed due to pt declining- may need to reorder if pt presents with abdominal pain or again LFTs elevation. 04/12: stable, demented. asking about discharge home when awaiting placement. MRI c neuroquant pending. stable presentation. continue current mgmt for now. 04/13: poor sleep due to disruptive peer. resting today. no request for discharge. no behavioral issues. continue current mgmt. 04/14: slept 5 hours. somewhat hypomanic today, circumstantial and moderately disorganized. agreeable to stay for the time being, per SW. increase abilify to 15 mg daily for mood stability. call placed to radiology for read on MRI brain done 04/05/25. 04/15: head MRI read remains absent. stable presentation. resting today, not activated or irritable. continue current mgmt. 04/16: stable presentation. remains a bit more organized and less labile than prior, since increase in abilify dosing. also a bit more tired. T/C moving abilify to HS to prevent daytime sedation. 04/17: lying in bed, calm. does not mention agitation around midnight last night. no complaints or requests. continue current mgmt. continues more organized and less labile. Reason for continued inpatient stay Substantial Risk for: inability to function Time Spent With Patient Time: Total time managing care of this patient today ____ minutes.
[2025-04-17 20:00] VITALS: BP 104/55; PULSE 46; RESP 16; TEMP 36.8; O2SAT 98
[2025-04-17] MEDS: traZODone HCL 25 MG HALFTAB PO (20:12)
[2025-04-18 09:22] VITALS: BP 101/50; PULSE 40; RESP 18; O2SAT 97
[2025-04-18 09:23] VITALS: BP 98/52
--- NOTE | 2025-04-18 11:32 | HO.PSYCHPN ---
Subjective Subjective Date of Service: 04/18/25 Reason For Visit: decompensation/ depression Interim History: lying in bed resting. c/o some RAMIRES, reports she took tylenol for it. just resting. no complaints or requests. per staff, pleasant, napping, forgetful. wants belingings and discharge. slept 8 hours. Mental Status Exam Mental Status Exam Narrative: In today's visit she is alert, oriented to time, place and person. speech nml in rate and amount. thoughts linear in brief interaction. Good eye contact. Affect is appropriate and calm. No acute signs of psychosis. No delusions. No SI expressed. Judgment is impaired. Diagnostics Vital Signs (24Hr): Vital Signs - 24 hr 04/17/25 20:00 04/18/25 09:22 04/18/25 09:23 Temperature 98.3 F Pulse Rate 46 L 40 L Respiratory Rate 16 18 Blood Pressure 104/55 L 101/50 L 98/52 L Pulse Oximetry 98 97 Oxygen Delivery Method Room Air Room Air BMI result Body Mass Index 16.3 Labs 04/11/25 09:58 04/11/25 09:58 Imaging Radiology Impressions: ITS Impressions Thyroid Ultrasound 04/03/25 11:58 IMPRESSION: Heterogeneous hypervascular thyroid gland. No discrete nodules are identified. ACR TI-RADS Guidelines TR1 (0 points): Benign. No follow-up or biopsy required TR2 (2 points): Not Suspicious. No biopsy or follow up indicated TR3 (3 points): Mildly Suspicious. FNA if >= 2.5 cm, Follow if >= 1.5 cm TR4 (4-6 points): Moderately Suspicious. FNA if >= 1.5 cm, Follow if >= 1.0 cm TR5 (>=7 points): Highly Suspicious. FNA if >= 1.0 cm, Follow if >= 0.5 cm Electronically signed by: García Young MD 04/04/2025 07:08 AM EDT RP Abdomen X-Ray 04/05/25 11:25 IMPRESSION: No radiopaque foreign body is identified. Electronically signed by: García Young MD 04/05/2025 11:45 AM EDT RP Chest X-Ray 04/05/25 11:25 IMPRESSION: Clear lungs. No radiopaque foreign body is identified. Electronically signed by: García Young MD 04/05/2025 11:46 AM EDT RP Skull X-Ray 04/05/25 11:25 IMPRESSION: No radiopaque foreign body is identified. Electronically signed by: García Young MD 04/05/2025 11:47 AM EDT RP Brain MRI 04/05/25 11:38 IMPRESSION: 1. No evidence of intracranial hemorrhage, acute infarction, mass effect, or edema. 2. Age advanced cerebral and cerebellar volume loss. Please refer to the above, and the full neuroquantitative report included with the examination. 3. Moderate to severe changes of small vessel ischemia. 4. Crib d'etat appearance of the basal ganglia suggestive of sequela of chronic hypertension. Electronically signed by: Ruddy Moreau MD 04/18/2025 08:28 AM EDT RP Medications Medications Current Medications Acetaminophen (Acetaminophen 325 Mg Tablet) 650 mg PO Q6H PRN PRN Reason: Pain 1-10 or headache Last Admin: 04/18/25 09:24 Dose: 650 mg Acetaminophen/Butalbital/Caffeine (Butalb/Acetamin/Caff 50/325/40 Tablet) 1 tab PO BID PRN PRN Reason: Pain, Moderate(Pain Scale 4-6) Last Admin: 04/16/25 16:54 Dose: 1 tab Al Hydroxide/Mg Hydroxide (Magnesium Hydrox/Alum Hydrox 30 Ml Oral.Susp) 30 ml PO Q6H PRN PRN Reason: Heartburn/Nausea Alprazolam (Alprazolam 0.25 Mg Tablet) 0.25 mg PO BID PRN PRN Reason: agitation/anxiety Last Admin: 04/17/25 20:12 Dose: 0.25 mg Amlodipine Besylate (Amlodipine Besylate 5 Mg Tablet) 5 mg PO DAILY [facility]; Protocol Last Admin: 04/18/25 10:01 Dose: Not Given Aripiprazole (Aripiprazole 15 Mg Tablet) 15 mg PO DAILY ROGELIO Last Admin: 04/18/25 09:21 Dose: 15 mg Atorvastatin Calcium (Atorvastatin Calcium 80 Mg Tablet) 80 mg PO DAILY [facility] Last Admin: 04/18/25 09:22 Dose: 80 mg Magnesium Hydroxide (Milk Of Magnesia 30 Ml Oral.Susp) 30 ml PO DAILY PRN PRN Reason: Constipation Methimazole (Methimazole 10 Mg Tablet) 10 mg PO DAILY [facility] Last Admin: 04/18/25 09:21 Dose: 10 mg Mirtazapine (Mirtazapine 15 Mg Tablet) 15 mg PO BEDTIME ROGELIO Last Admin: 04/17/25 20:12 Dose: 15 mg Nicotine Polacrilex (Nicotine Polacrilex 2 Mg Gum) 4 mg BUCCAL Q2H PRN PRN Reason: Nicotine Cravings Olanzapine (Olanzapine 5 Mg Tablet) 5 mg PO TID PRN PRN Reason: agitation Omeprazole (Omeprazole 20 Mg Capsule.Dr) 20 mg PO DAILY@0630 [facility] Last Admin: 04/18/25 06:08 Dose: 20 mg Spironolactone (Spironolactone 25 Mg Tablet) 25 mg PO DAILY [facility]; Protocol Last Admin: 04/18/25 10:03 Dose: Not Given Trazodone HCl (Trazodone Hcl 25 Mg Halftab) 25 mg PO BEDTIME MRX1 PRN PRN Reason: Insomnia Last Admin: 04/17/25 20:12 Dose: 25 mg Trazodone HCl (Trazodone Hcl 25 Mg Halftab) 12.5 mg PO Q4H PRN PRN Reason: anxiety/agitation Allergies Allergies Allergy/AdvReac Type Severity Reaction Status Date / Time codeine Allergy Intermediate hives Verified 03/28/25 21:43 NSAIDS (Non-Steroidal AdvReac Severe gi bleed Verified 04/05/25 10:40 Anti-Inflamma Assessment & Plan Assessment & Plan (1) Graves disease: Status: Acute Code(s): E05.00 - Thyrotoxicosis with diffuse goiter without thyrotoxic crisis or storm Assessment and Plan: Pt is a 70-year-old female with a PMH significant for?HLD/CAD, NSTEMI 17 years ago, HTN, HFpEF, aniety, and depression who is admitted to [facility] for increasing depression with SI. Pt initially presented to [facility] for profound lethargy and inability to function at home. Workup was negative except for undetectable TSH but T3 and T4 WNL. While in the ED pt became agitated with multiple outbursts, including throwing coffee, kicking and screaming, and swearing at staff. Pt was not redirectable and required IM Zyprexa. Seen today for right ear pain, transaminitis. . Right otitis media. Augmentin 875 mgs BID for 5 days Improved HTN/CAD/HLD Continue amlodipine. Reports hx of NSTEMI 17 years ago No longer taking aspirin or Plavix, unclear if pt stopped taking on her own or at direction of cardiology Continue statin Asymptomatic bradycardia Metoprolol DC Graves disease Thyroid ultrasound without nodules but noted to be hypervascular TSI and TRAb elevated. Free T3 elevated, T4 normal Continue Methimazole 10 mgs daily Repeat labs in one week. Follow labs every 4 weeks. Will need endocrinology follow up. Abdominal pain/transaminitis Abdominal pain resolved If reoccurs we will order HIDA scan Patient reports a history of Hep C- Viral panel undetectable. Patient with a history of EtOH use Abdominal pain resolved. Liver tests reviewed with Dr. Mauro. No further intervention as abdominal pain resolved. Patient refused HIDA scan Hx of HFpEF Not in acute exacerbation Continue spironolactone Thank you for allowing me to participate in the care of this patient. We will continue to follow as needed. Please reconsult of any acute concerns or issues arise (2) MDD (major depressive disorder), recurrent episode, moderate: Status: Acute Code(s): F33.1 - Major depressive disorder, recurrent, moderate (3) Cognitive impairment: Status: Acute Code(s): R41.89 - Other symptoms and signs involving cognitive functions and awareness Plan Mrs. Martinez is a 70 year-old woman who was initially brought to [facility] due to weakness, profound lethargy and inability to care for herself. While in the ED, pt presented as agitated, combative and reported SI. Daughter reports pt has been struggling to care for herself (house without hot water, in condemnable condition and pt has not showered in several months). Pt is not able to recall events leading to this admission, despite the fact that she is oriented to month, year and place. We discussed risks, benefits and alternative treatment options. Will lower dose of xanax as pt this morning was more somnolent and lethargic although she had not received xanax. Lowered to 0.5mg po TID. continue effexor er 75mg po daily. Pt noted to have BP elevated but this was one point of care- will continue to monitor. No signs of benzo withdrawal. Pending MOCA/ACL. Will also check B12 (note that although no anemia, MCV was high). Repeat of CMP shows some degree of dehydration (elevated BUN from 14 to 23)- encourage fluids. PLAN 04/04 LFTs trending up, GI following, denies any abdominal pain, no vomiting, afebrile. pt confused as to why she is here, somewhat suspicious about her children wanting to leave her here. Will hold on starting medications until LFTs and bilirubin normalizes. Pending US of gallbladder today. 04/05 pt forgetful from day to day, confabulation with often seems more like blaming her children for doing things behind her back and thinks they are lying when medical underwriter explains concern in terms of memory/cog impairments. 04/06 LFTs trending down. Will start abilify for mood/suspiciousness. 04/08 continue tx. 04/09: Continue current regimen and plans. Trial of Fioricet b.i.d. PRN 04/11 increase abilify for mood. reading of MRI with neuroquant- still pending. CAUTION WITH ACETAMINOPHEN AND LFTS. ALSO CAUTION WITH NSAID- not H&H down since admission. She was started on Tapazole 10mg po daily for graves disease- newly dx here. HIDA scan for abdominal pain not completed due to pt declining- may need to reorder if pt presents with abdominal pain or again LFTs elevation. 04/12: stable, demented. asking about discharge home when awaiting placement. MRI c neuroquant pending. stable presentation. continue current mgmt for now. 04/13: poor sleep due to disruptive peer. resting today. no request for discharge. no behavioral issues. continue current mgmt. 04/14: slept 5 hours. somewhat hypomanic today, circumstantial and moderately disorganized. agreeable to stay for the time being, per SW. increase abilify to 15 mg daily for mood stability. call placed to radiology for read on MRI brain done 04/05/25. 04/15: head MRI read remains absent. stable presentation. resting today, not activated or irritable. continue current mgmt. 04/16: stable presentation. remains a bit more organized and less labile than prior, since increase in abilify dosing. also a bit more tired. T/C moving abilify to HS to prevent daytime sedation. 04/17: lying in bed, calm. does not mention agitation around midnight last night. no complaints or requests. continue current mgmt. continues more organized and less labile. 04/18: MRI brain c/w AD and vascular dementia. start donepezil. remains less labile and irritable since abilify dosing increase. awaiting placement. continue current mgmt. Reason for continued inpatient stay Substantial Risk for: inability to function Time Spent With Patient Time: Total time managing care of this patient today __25__ minutes.
--- NOTE | 2025-04-18 16:25 | MHC.CLN ---
F/U DIET=REGULAR. ENSURE TID PROVIDES 1050 KCALS, 60 G PROTEIN. CONTINUES WITH VARIABLE PO INTAKE, USUALLY 25-100%. WEIGHT 04/14/25=45.8 KG. NO SIGNIFICANT CHANGE. CONTINUE TO FOLLOW FOR PO INTAKE. RD TO FOLLOW UP WEEKLY.
[2025-04-18 20:00] VITALS: BP 98/52; PULSE 43; RESP 18; TEMP 36; O2SAT 97
[2025-04-18] MEDS: traZODone HCL 25 MG HALFTAB PO (20:08)
[2025-04-19 09:00] VITALS: BP 183/75; PULSE 40; RESP 18; TEMP 36.3; O2SAT 97
--- NOTE | 2025-04-19 10:55 | HO.PSYCHPN ---
Subjective Subjective Date of Service: 04/19/25 Reason For Visit: decompensation/ depression Interim History: feeling OK. angry with nursing staff because they say strange things about what her family might think about her. such as, she has heard the RNs say that her family has said she has issues with certain troubles at home. per staff, pleasant. taking meds. irritable early afternoon. eating. slept 8 hours. thinks her car is at the hospital, wants to pack it and leave. her car is in [facility] with her family. Mental Status Exam Mental Status Exam Narrative: In today's visit she is alert, pleasant. speech nml in rate and amount. thoughts linear in brief interaction, paranoid. Good eye contact. Affect is appropriate and calm. reporting hearing [facility]u staff nurse say things about her and her family which are vastly unlikely, believes staff are actually saying these things. No SI expressed. Judgment is impaired. Diagnostics Vital Signs (24Hr): Vital Signs - 24 hr 04/18/25 20:00 04/19/25 09:00 Temperature 96.8 F 97.4 F Pulse Rate 43 L 40 L Respiratory Rate 18 18 Blood Pressure 98/52 L 183/75 H Pulse Oximetry 97 97 Oxygen Delivery Method Room Air Room Air BMI result Body Mass Index 16.3 Labs 04/11/25 09:58 04/11/25 09:58 Imaging Radiology Impressions: ITS Impressions Thyroid Ultrasound 04/03/25 11:58 IMPRESSION: Heterogeneous hypervascular thyroid gland. No discrete nodules are identified. ACR TI-RADS Guidelines TR1 (0 points): Benign. No follow-up or biopsy required TR2 (2 points): Not Suspicious. No biopsy or follow up indicated TR3 (3 points): Mildly Suspicious. FNA if >= 2.5 cm, Follow if >= 1.5 cm TR4 (4-6 points): Moderately Suspicious. FNA if >= 1.5 cm, Follow if >= 1.0 cm TR5 (>=7 points): Highly Suspicious. FNA if >= 1.0 cm, Follow if >= 0.5 cm Electronically signed by: García Young MD 04/04/2025 07:08 AM EDT Abdomen X-Ray 04/05/25 11:25 IMPRESSION: No radiopaque foreign body is identified. Electronically signed by: García Young MD 04/05/2025 11:45 AM EDT RP Chest X-Ray 04/05/25 11:25 IMPRESSION: Clear lungs. No radiopaque foreign body is identified. Electronically signed by: García Young MD 04/05/2025 11:46 AM EDT RP Skull X-Ray 04/05/25 11:25 IMPRESSION: No radiopaque foreign body is identified. Electronically signed by: García Young MD 04/05/2025 11:47 AM EDT RP Brain MRI 04/05/25 11:38 IMPRESSION: 1. No evidence of intracranial hemorrhage, acute infarction, mass effect, or edema. 2. Age advanced cerebral and cerebellar volume loss. Please refer to the above, and the full neuroquantitative report included with the examination. 3. Moderate to severe changes of small vessel ischemia. 4. Crib d'etat appearance of the basal ganglia suggestive of sequela of chronic hypertension. Electronically signed by: Ruddy Moreau MD 04/18/2025 08:28 AM EDT RP Medications Medications Current Medications Acetaminophen (Acetaminophen 325 Mg Tablet) 650 mg PO Q6H PRN PRN Reason: Pain 1-10 or headache Last Admin: 04/18/25 09:24 Dose: 650 mg Acetaminophen/Butalbital/Caffeine (Butalb/Acetamin/Caff 50/325/40 Tablet) 1 tab PO BID PRN PRN Reason: Pain, Moderate(Pain Scale 4-6) Last Admin: 04/16/25 16:54 Dose: 1 tab Al Hydroxide/Mg Hydroxide (Magnesium Hydrox/Alum Hydrox 30 Ml Oral.Susp) 30 ml PO Q6H PRN PRN Reason: Heartburn/Nausea Alprazolam (Alprazolam 0.25 Mg Tablet) 0.25 mg PO BID PRN PRN Reason: agitation/anxiety Last Admin: 04/18/25 20:09 Dose: 0.25 mg Amlodipine Besylate (Amlodipine Besylate 5 Mg Tablet) 5 mg PO DAILY ROGELIO; Protocol Last Admin: 04/19/25 09:27 Dose: 5 mg Aripiprazole (Aripiprazole 15 Mg Tablet) 15 mg PO DAILY ROGELIO Last Admin: 04/19/25 09:26 Dose: 15 mg Atorvastatin Calcium (Atorvastatin Calcium 80 Mg Tablet) 80 mg PO DAILY [facility] Last Admin: 04/19/25 09:26 Dose: 80 mg Donepezil HCl (Donepezil Hcl 5 Mg Tablet) 5 mg PO BEDTIME [facility] Last Admin: 04/18/25 20:09 Dose: 5 mg Magnesium Hydroxide (Milk Of Magnesia 30 Ml Oral.Susp) 30 ml PO DAILY PRN PRN Reason: Constipation Methimazole (Methimazole 10 Mg Tablet) 10 mg PO DAILY [facility] Last Admin: 04/19/25 09:27 Dose: 10 mg Mirtazapine (Mirtazapine 15 Mg Tablet) 15 mg PO BEDTIME ROGELIO Last Admin: 04/18/25 20:08 Dose: 15 mg Nicotine Polacrilex (Nicotine Polacrilex 2 Mg Gum) 4 mg BUCCAL Q2H PRN PRN Reason: Nicotine Cravings Olanzapine (Olanzapine 5 Mg Tablet) 5 mg PO TID PRN PRN Reason: agitation Omeprazole (Omeprazole 20 Mg Capsule.Dr) 20 mg PO DAILY@0630 [facility] Last Admin: 04/19/25 05:36 Dose: 20 mg Spironolactone (Spironolactone 25 Mg Tablet) 25 mg PO DAILY [facility]; Protocol Last Admin: 04/19/25 09:26 Dose: 25 mg Trazodone HCl (Trazodone Hcl 25 Mg Halftab) 25 mg PO BEDTIME MRX1 PRN PRN Reason: Insomnia Last Admin: 04/18/25 20:08 Dose: 25 mg Trazodone HCl (Trazodone Hcl 25 Mg Halftab) 12.5 mg PO Q4H PRN PRN Reason: anxiety/agitation Allergies Allergies Allergy/AdvReac Type Severity Reaction Status Date / Time codeine Allergy Intermediate hives Verified 03/28/25 21:43 NSAIDS (Non-Steroidal AdvReac Severe gi bleed Verified 04/05/25 10:40 Anti-Inflamma Assessment & Plan Assessment & Plan (1) Graves disease: Status: Acute Code(s): E05.00 - Thyrotoxicosis with diffuse goiter without thyrotoxic crisis or storm Assessment and Plan: Pt is a 70-year-old female with a PMH significant for?HLD/CAD, NSTEMI 17 years ago, HTN, HFpEF, aniety, and depression who is admitted to [facility] for increasing depression with SI. Pt initially presented to [facility] for profound lethargy and inability to function at home. Workup was negative except for undetectable TSH but T3 and T4 WNL. While in the ED pt became agitated with multiple outbursts, including throwing coffee, kicking and screaming, and swearing at staff. Pt was not redirectable and required IM Zyprexa. Seen today for right ear pain, transaminitis. . Right otitis media. Augmentin 875 mgs BID for 5 days Improved HTN/CAD/HLD Continue amlodipine. Reports hx of NSTEMI 17 years ago No longer taking aspirin or Plavix, unclear if pt stopped taking on her own or at direction of cardiology Continue statin Asymptomatic bradycardia Metoprolol DC Graves disease Thyroid ultrasound without nodules but noted to be hypervascular TSI and TRAb elevated. Free T3 elevated, T4 normal Continue Methimazole 10 mgs daily Repeat labs in one week. Follow labs every 4 weeks. Will need endocrinology follow up. Abdominal pain/transaminitis Abdominal pain resolved If reoccurs we will order HIDA scan Patient reports a history of Hep C- Viral panel undetectable. Patient with a history of EtOH use Abdominal pain resolved. Liver tests reviewed with Dr. Mauro. No further intervention as abdominal pain resolved. Patient refused HIDA scan Hx of HFpEF Not in acute exacerbation Continue spironolactone Thank you for allowing me to participate in the care of this patient. We will continue to follow as needed. Please reconsult of any acute concerns or issues arise (2) MDD (major depressive disorder), recurrent episode, moderate: Status: Acute Code(s): F33.1 - Major depressive disorder, recurrent, moderate (3) Cognitive impairment: Status: Acute Code(s): R41.89 - Other symptoms and signs involving cognitive functions and awareness Plan Mrs. Martinez is a 70 year-old woman who was initially brought to [facility] due to weakness, profound lethargy and inability to care for herself. While in the ED, pt presented as agitated, combative and reported SI. Daughter reports pt has been struggling to care for herself (house without hot water, in condemnable condition and pt has not showered in several months). Pt is not able to recall events leading to this admission, despite the fact that she is oriented to month, year and place. We discussed risks, benefits and alternative treatment options. Will lower dose of xanax as pt this morning was more somnolent and lethargic although she had not received xanax. Lowered to 0.5mg po TID. continue effexor er 75mg po daily. Pt noted to have BP elevated but this was one point of care- will continue to monitor. No signs of benzo withdrawal. Pending MOCA/ACL. Will also check B12 (note that although no anemia, MCV was high). Repeat of CMP shows some degree of dehydration (elevated BUN from 14 to 23)- encourage fluids. PLAN 04/04 LFTs trending up, GI following, denies any abdominal pain, no vomiting, afebrile. pt confused as to why she is here, somewhat suspicious about her children wanting to leave her here. Will hold on starting medications until LFTs and bilirubin normalizes. Pending US of gallbladder today. 04/05 pt forgetful from day to day, confabulation with often seems more like blaming her children for doing things behind her back and thinks they are lying when rfp writer explains concern in terms of memory/cog impairments. 04/06 LFTs trending down. Will start abilify for mood/suspiciousness. 04/08 continue tx. 04/09: Continue current regimen and plans. Trial of Fioricet b.i.d. PRN 04/11 increase abilify for mood. reading of MRI with neuroquant- still pending. CAUTION WITH ACETAMINOPHEN AND LFTS. ALSO CAUTION WITH NSAID- not H&H down since admission. She was started on Tapazole 10mg po daily for graves disease- newly dx here. HIDA scan for abdominal pain not completed due to pt declining- may need to reorder if pt presents with abdominal pain or again LFTs elevation. 04/12: stable, demented. asking about discharge home when awaiting placement. MRI c neuroquant pending. stable presentation. continue current mgmt for now. 04/13: poor sleep due to disruptive peer. resting today. no request for discharge. no behavioral issues. continue current mgmt. 04/14: slept 5 hours. somewhat hypomanic today, circumstantial and moderately disorganized. agreeable to stay for the time being, per SW. increase abilify to 15 mg daily for mood stability. call placed to radiology for read on MRI brain done 04/05/25. 04/15: head MRI read remains absent. stable presentation. resting today, not activated or irritable. continue current mgmt. 04/16: stable presentation. remains a bit more organized and less labile than prior, since increase in abilify dosing. also a bit more tired. T/C moving abilify to HS to prevent daytime sedation. 04/17: lying in bed, calm. does not mention agitation around midnight last night. no complaints or requests. continue current mgmt. continues more organized and less labile. 04/18: MRI brain c/w AD and vascular dementia. start donepezil. remains less labile and irritable since abilify dosing increase. awaiting placement. continue current mgmt. 04/19: appears to be endorsing AH and expressing paranoia re staff today. increase abilify once again, this time with added dose in the evening. otherwise continue current mgmt. Reason for continued inpatient stay Substantial Risk for: inability to function and rapid decompensation Time Spent With Patient Time: Total time managing care of this patient today _25___ minutes.
--- NOTE | 2025-04-19 11:09 | HO.HCP ---
Health Care Proxy Invocation Health Care Proxy Declaration: I, ___Bart Kirk MD , on the date cited below, have determined that, ____Harriet Gustafson , lacks the capacity to make or communicate, informed health care decision. This determination is made in accordance with accepted standards of medical judgment and pursuant to [place], the [facility] Care Proxy Law. The cause, nature, extent and probable duration of the patient's incapacity are described below: Cause: dementia with psychosis Nature: impaired cognitive performance and reality testing Extent: complete Probable Duration of Patient's Incapacity: indefinite
[2025-04-19 17:32] VITALS: BP 150/70
--- NOTE | 2025-04-19 17:33 | PC.NURSE ---
B/P elevated in the am prior to medications. Manual recheck after supper with B/P 150/70 right arm sitting. Patient asymptomatic.
[2025-04-19 20:00] VITALS: BP 114/70; PULSE 45; RESP 16; TEMP 36.4; O2SAT 96
[2025-04-20 07:55] VITALS: BP 162/74; PULSE 45; RESP 18; TEMP 36.6; O2SAT 95
--- NOTE | 2025-04-20 14:20 | P.PNPSI_ITS ---
Subjective Subjective Date of Service: 04/20/25 Reason For Visit: decompensation/ depression Medical Problems Affecting Mental Status: No Interim History: Medical record and nursing notes reviewed; case discussed during rounds with team/nursing staff, and met with patient for supportive therapy/psychoeducation, as well as medication management. Patient slept for 8 hours, was medication compliant. Denied side effects. However per nursing staff, patient was struggle with taking medication last night. She has sundown symptoms, more irritable in the afternoon and evening. During conversation with this provider, patient reports that she feel irritable but denies anxiety or depression. She said medications do not do anything good. Sucks being in here. Then she is more irritable when we asked about safety concern questions. it Is a bunch of bullshit, I am done talking . However she continued engaged in conversation when this provider review with her regarding Abilify scheduled time of the afternoon dose. She is working on menu at the same time. Per nursing, patient struggle with taking Abilify lead in the afternoon yesterday, after he she has sundown symptoms. Therefore I will change to 1600 so nursing staff can offer her at around 3.. Medication Compliance: Yes Side effects from medications: No Attending Groups: Intermittent Review of Systems Acute medical concerns: No Medical Review of Systems: unchanged Review of Systems Review of Systems Denies any shortness of breath, chest pain, dizziness, lightheadedness, abdominal pain or discomfort, nausea vomiting or diarrhea Yes all other systems are reviewed and are negative Mental Status Exam Mental Status Exam Narrative: In today's visit she is alert, pleasant at first but more irritable at the end of conversation. speech nml in rate and amount. thoughts linear. Good eye contact. Affect is appropriate but irritable. No SI/HI/AVH expressed. Judgment is impaired. Diagnostics Vital Signs (24Hr): Vital Signs - 24 hr 04/19/25 17:32 04/19/25 20:00 04/20/25 07:55 Temperature 97.5 F 97.9 F Pulse Rate 45 L 45 L Respiratory Rate 16 18 Blood Pressure 150/70 H 114/70 162/74 H Pulse Oximetry 96 95 Oxygen Delivery Method Room Air Room Air BMI result Body Mass Index 16.3 Labs 04/11/25 09:58 04/11/25 09:58 Imaging Radiology Impressions: ITS Impressions Thyroid Ultrasound 04/03/25 11:58 IMPRESSION: Heterogeneous hypervascular thyroid gland. No discrete nodules are identified. ACR TI-RADS Guidelines TR1 (0 points): Benign. No follow-up or biopsy required TR2 (2 points): Not Suspicious. No biopsy or follow up indicated TR3 (3 points): Mildly Suspicious. FNA if >= 2.5 cm, Follow if >= 1.5 cm TR4 (4-6 points): Moderately Suspicious. FNA if >= 1.5 cm, Follow if >= 1.0 cm TR5 (>=7 points): Highly Suspicious. FNA if >= 1.0 cm, Follow if >= 0.5 cm Electronically signed by: García Young MD 04/04/2025 07:08 AM EDT RP Abdomen X-Ray 04/05/25 11:25 IMPRESSION: No radiopaque foreign body is identified. Electronically signed by: García Young MD 04/05/2025 11:45 AM EDT RP Chest X-Ray 04/05/25 11:25 IMPRESSION: Clear lungs. No radiopaque foreign body is identified. Electronically signed by: García Young MD 04/05/2025 11:46 AM EDT RP Skull X-Ray 04/05/25 11:25 IMPRESSION: No radiopaque foreign body is identified. Electronically signed by: García Young MD 04/05/2025 11:47 AM EDT RP Brain MRI 04/05/25 11:38 IMPRESSION: 1. No evidence of intracranial hemorrhage, acute infarction, mass effect, or edema. 2. Age advanced cerebral and cerebellar volume loss. Please refer to the above, and the full neuroquantitative report included with the examination. 3. Moderate to severe changes of small vessel ischemia. 4. Crib d'etat appearance of the basal ganglia suggestive of sequela of chronic hypertension. Electronically signed by: Ruddy Moreau MD 04/18/2025 08:28 AM EDT Medications Medications Current Medications Acetaminophen (Acetaminophen 325 Mg Tablet) 650 mg PO Q6H PRN PRN Reason: Pain 1-10 or headache Last Admin: 04/20/25 12:27 Dose: 650 mg Acetaminophen/Butalbital/Caffeine (Butalb/Acetamin/Caff 50/325/40 Tablet) 1 tab PO BID PRN PRN Reason: Pain, Moderate(Pain Scale 4-6) Last Admin: 04/16/25 16:54 Dose: 1 tab Al Hydroxide/Mg Hydroxide (Magnesium Hydrox/Alum Hydrox 30 Ml Oral.Susp) 30 ml PO Q6H PRN PRN Reason: Heartburn/Nausea Alprazolam (Alprazolam 0.25 Mg Tablet) 0.25 mg PO BID PRN PRN Reason: agitation/anxiety Last Admin: 04/18/25 20:09 Dose: 0.25 mg Amlodipine Besylate (Amlodipine Besylate 5 Mg Tablet) 5 mg PO DAILY [facility]; Protocol Last Admin: 04/20/25 08:24 Dose: 5 mg Aripiprazole (Aripiprazole 15 Mg Tablet) 15 mg PO DAILY [facility] Last Admin: 04/20/25 08:24 Dose: 15 mg Aripiprazole (Aripiprazole 5 Mg Tablet) 5 mg PO DAILY@1600 ROGELIO Atorvastatin Calcium (Atorvastatin Calcium 80 Mg Tablet) 80 mg PO DAILY [facility] Last Admin: 04/20/25 08:24 Dose: 80 mg Donepezil HCl (Donepezil Hcl 5 Mg Tablet) 5 mg PO BEDTIME [facility] Last Admin: 04/19/25 21:01 Dose: 5 mg Magnesium Hydroxide (Milk Of Magnesia 30 Ml Oral.Susp) 30 ml PO DAILY PRN PRN Reason: Constipation Methimazole (Methimazole 10 Mg Tablet) 10 mg PO DAILY [facility] Last Admin: 04/20/25 08:24 Dose: 10 mg Mirtazapine (Mirtazapine 15 Mg Tablet) 15 mg PO BEDTIME [facility] Last Admin: 04/19/25 21:01 Dose: 15 mg Nicotine Polacrilex (Nicotine Polacrilex 2 Mg Gum) 4 mg BUCCAL Q2H PRN PRN Reason: Nicotine Cravings Olanzapine (Olanzapine 5 Mg Tablet) 5 mg PO TID PRN PRN Reason: agitation Omeprazole (Omeprazole 20 Mg Capsule.Dr) 20 mg PO DAILY@0630 [facility] Last Admin: 04/20/25 06:17 Dose: Not Given Spironolactone (Spironolactone 25 Mg Tablet) 25 mg PO DAILY [facility]; Protocol Last Admin: 04/20/25 08:24 Dose: 25 mg Trazodone HCl (Trazodone Hcl 25 Mg Halftab) 25 mg PO BEDTIME MRX1 PRN PRN Reason: Insomnia Last Admin: 04/18/25 20:08 Dose: 25 mg Trazodone HCl (Trazodone Hcl 25 Mg Halftab) 12.5 mg PO Q4H PRN PRN Reason: anxiety/agitation Allergies Allergies Allergy/AdvReac Type Severity Reaction Status Date / Time codeine Allergy Intermediate hives Verified 03/28/25 21:43 NSAIDS (Non-Steroidal AdvReac Severe gi bleed Verified 04/05/25 10:40 Anti-Inflamma Assessment & Plan Assessment & Plan (1) Graves disease: Status: Acute Code(s): E05.00 - Thyrotoxicosis with diffuse goiter without thyrotoxic crisis or storm Assessment and Plan: Pt is a 70-year-old female with a PMH significant for?HLD/CAD, NSTEMI 17 years ago, HTN, HFpEF, aniety, and depression who is admitted to [facility] for increasing depression with SI. Pt initially presented to [facility] for profound lethargy and inability to function at home. Workup was negative except for undetectable TSH but T3 and T4 WNL. While in the ED pt became agitated with multiple outbursts, including throwing coffee, kicking and screaming, and swearing at staff. Pt was not redirectable and required IM Zyprexa. Seen today for right ear pain, transaminitis. . Right otitis media. Augmentin 875 mgs BID for 5 days Improved HTN/CAD/HLD Continue amlodipine. Reports hx of NSTEMI 17 years ago No longer taking aspirin or Plavix, unclear if pt stopped taking on her own or at direction of cardiology Continue statin Asymptomatic bradycardia Metoprolol DC Graves disease Thyroid ultrasound without nodules but noted to be hypervascular TSI and TRAb elevated. Free T3 elevated, T4 normal Continue Methimazole 10 mgs daily Repeat labs in one week. Follow labs every 4 weeks. Will need endocrinology follow up. Abdominal pain/transaminitis Abdominal pain resolved If reoccurs we will order HIDA scan Patient reports a history of Hep C- Viral panel undetectable. Patient with a history of EtOH use Abdominal pain resolved. Liver tests reviewed with Dr. Mauro. No further intervention as abdominal pain resolved. Patient refused HIDA scan Hx of HFpEF Not in acute exacerbation Continue spironolactone Thank you for allowing me to participate in the care of this patient. We will continue to follow as needed. Please reconsult of any acute concerns or issues arise (2) MDD (major depressive disorder), recurrent episode, moderate: Status: Acute Code(s): F33.1 - Major depressive disorder, recurrent, moderate (3) Cognitive impairment: Status: Acute Code(s): R41.89 - Other symptoms and signs involving cognitive functions and awareness Plan Mrs. Martinez is a 70 year-old woman who was initially brought to [facility] due to weakness, profound lethargy and inability to care for herself. While in the ED, pt presented as agitated, combative and reported SI. Daughter reports pt has been struggling to care for herself (house without hot water, in condemnable condition and pt has not showered in several months). Pt is not able to recall events leading to this admission, despite the fact that she is oriented to month, year and place. We discussed risks, benefits and alternative treatment options. Will lower dose of xanax as pt this morning was more somnolent and lethargic although she had not received xanax. Lowered to 0.5mg po TID. continue effexor er 75mg po daily. Pt noted to have BP elevated but this was one point of care- will continue to monitor. No signs of benzo withdrawal. Pending MOCA/ACL. Will also check B12 (note that although no anemia, MCV was high). Repeat of CMP shows some degree of dehydration (elevated BUN from 14 to 23)- encourage fluids. PLAN 04/04 LFTs trending up, GI following, denies any abdominal pain, no vomiting, afebrile. pt confused as to why she is here, somewhat suspicious about her children wanting to leave her here. Will hold on starting medications until LFTs and bilirubin normalizes. Pending US of gallbladder today. 04/05 pt forgetful from day to day, confabulation with often seems more like blaming her children for doing things behind her back and thinks they are lying when speech writer explains concern in terms of memory/cog impairments. 04/06 LFTs trending down. Will start abilify for mood/suspiciousness. 04/08 continue tx. 04/09: Continue current regimen and plans. Trial of Fioricet b.i.d. PRN 04/11 increase abilify for mood. reading of MRI with neuroquant- still pending. CAUTION WITH ACETAMINOPHEN AND LFTS. ALSO CAUTION WITH NSAID- not H&H down since admission. She was started on Tapazole 10mg po daily for graves disease- newly dx here. HIDA scan for abdominal pain not completed due to pt declining- may need to reorder if pt presents with abdominal pain or again LFTs elevation. 04/12: stable, demented. asking about discharge home when awaiting placement. MRI c neuroquant pending. stable presentation. continue current mgmt for now. 04/13: poor sleep due to disruptive peer. resting today. no request for discharge. no behavioral issues. continue current mgmt. 04/14: slept 5 hours. somewhat hypomanic today, circumstantial and moderately disorganized. agreeable to stay for the time being, per SW. increase abilify to 15 mg daily for mood stability. call placed to radiology for read on MRI brain done 04/05/25. 04/15: head MRI read remains absent. stable presentation. resting today, not activated or irritable. continue current mgmt. 04/16: stable presentation. remains a bit more organized and less labile than prior, since increase in abilify dosing. also a bit more tired. T/C moving abilify to HS to prevent daytime sedation. 04/17: lying in bed, calm. does not mention agitation around midnight last night. no complaints or requests. continue current mgmt. continues more organized and less labile. 04/18: MRI brain c/w AD and vascular dementia. start donepezil. remains less labile and irritable since abilify dosing increase. awaiting placement. continue current mgmt. 04/19: appears to be endorsing AH and expressing paranoia re staff today. increase abilify once again, this time with added dose in the evening. otherwise continue current mgmt. 04/20/25: Patient slept for 8 hours, was medication compliant. Denied side effects. However per nursing staff, patient was struggle with taking medication last night. She has sundown symptoms, more irritable in the afternoon and evening. During conversation with this provider, patient reports that she feel irritable but denies anxiety or depression. She said medications do not do anything good. Sucks being in here. Then she is more irritable when we asked about safety concern questions. it Is a bunch of bullshit, I am done talking . However she continued engaged in conversation when this provider review with her regarding Abilify scheduled time of the afternoon dose. She is working on menu at the same time. Per nursing, patient struggle with taking Abilify in the afternoon yesterday, after he she has own symptoms. Therefore I will change to 1600 so nursing staff can offer her at around 3 PM. Does not make any paranoid statements. Patient educated on: medication risk/benefits and therapeutic strategies Informed Consent: further education needed Reason for continued inpatient stay Substantial Risk for: med/psych decompensation Time Spent With Patient Time: Total time managing care of this patient today ____ minutes.
[2025-04-20 20:00] VITALS: BP 148/76; PULSE 60; RESP 16; TEMP 36.4; O2SAT 99
[2025-04-20] MEDS: traZODone HCL 25 MG HALFTAB PO (20:53)
[2025-04-21 08:00] VITALS: BP 95/72; PULSE 41; RESP 16; TEMP 36.4; O2SAT 95
[2025-04-21 09:17] VITALS: BP 95/72
[2025-04-21 09:22] VITALS: BP 95/72
--- NOTE | 2025-04-21 12:38 | P.PNPSI_ITS ---
Subjective Subjective Date of Service: 04/21/25 Reason For Visit: decompensation/ depression Interim History: in bed, tired, rousable. no complaints or requests. per staff, isolative, irritable. eating. taking meds. slept 8 hours. Mental Status Exam Mental Status Exam Narrative: In today's visit she is alert, pleasant. speech nml in rate and amount. thoughts linear in brief interaction, no paranoid or delusional content broached. Good eye contact. Affect is appropriate and calm. No SI expressed. Judgment is impaired. Diagnostics Vital Signs (24Hr): Vital Signs - 24 hr 04/20/25 20:00 04/21/25 08:00 04/21/25 09:17 Temperature 97.5 F 97.6 F Pulse Rate 60 41 L Respiratory Rate 16 16 Blood Pressure 148/76 H 95/72 95/72 Pulse Oximetry 99 95 Oxygen Delivery Method Room Air Room Air 04/21/25 09:22 Temperature Pulse Rate Respiratory Rate Blood Pressure 95/72 Pulse Oximetry Oxygen Delivery Method BMI result Body Mass Index 16.3 Labs 04/11/25 09:58 04/11/25 09:58 Imaging Radiology Impressions: ITS Impressions Thyroid Ultrasound 04/03/25 11:58 IMPRESSION: Heterogeneous hypervascular thyroid gland. No discrete nodules are identified. ACR TI-RADS Guidelines TR1 (0 points): Benign. No follow-up or biopsy required TR2 (2 points): Not Suspicious. No biopsy or follow up indicated TR3 (3 points): Mildly Suspicious. FNA if >= 2.5 cm, Follow if >= 1.5 cm TR4 (4-6 points): Moderately Suspicious. FNA if >= 1.5 cm, Follow if >= 1.0 cm TR5 (>=7 points): Highly Suspicious. FNA if >= 1.0 cm, Follow if >= 0.5 cm Electronically signed by: García Young MD 04/04/2025 07:08 AM EDT RP Abdomen X-Ray 04/05/25 11:25 IMPRESSION: No radiopaque foreign body is identified. Electronically signed by: García Young MD 04/05/2025 11:45 AM EDT Chest X-Ray 04/05/25 11:25 IMPRESSION: Clear lungs. No radiopaque foreign body is identified. Electronically signed by: García Young MD 04/05/2025 11:46 AM EDT RP Skull X-Ray 04/05/25 11:25 IMPRESSION: No radiopaque foreign body is identified. Electronically signed by: García Young MD 04/05/2025 11:47 AM EDT RP Brain MRI 04/05/25 11:38 IMPRESSION: 1. No evidence of intracranial hemorrhage, acute infarction, mass effect, or edema. 2. Age advanced cerebral and cerebellar volume loss. Please refer to the above, and the full neuroquantitative report included with the examination. 3. Moderate to severe changes of small vessel ischemia. 4. Crib d'etat appearance of the basal ganglia suggestive of sequela of chronic hypertension. Electronically signed by: Ruddy Moreau MD 04/18/2025 08:28 AM EDT RP Medications Medications Current Medications Acetaminophen (Acetaminophen 325 Mg Tablet) 650 mg PO Q6H PRN PRN Reason: Pain 1-10 or headache Last Admin: 04/20/25 12:27 Dose: 650 mg Acetaminophen/Butalbital/Caffeine (Butalb/Acetamin/Caff 50/325/40 Tablet) 1 tab PO BID PRN PRN Reason: Pain, Moderate(Pain Scale 4-6) Last Admin: 04/16/25 16:54 Dose: 1 tab Al Hydroxide/Mg Hydroxide (Magnesium Hydrox/Alum Hydrox 30 Ml Oral.Susp) 30 ml PO Q6H PRN PRN Reason: Heartburn/Nausea Alprazolam (Alprazolam 0.25 Mg Tablet) 0.25 mg PO BID PRN PRN Reason: agitation/anxiety Last Admin: 04/20/25 20:53 Dose: 0.25 mg Amlodipine Besylate (Amlodipine Besylate 5 Mg Tablet) 5 mg PO DAILY [facility]; Protocol Last Admin: 04/21/25 09:17 Dose: Not Given Aripiprazole (Aripiprazole 15 Mg Tablet) 15 mg PO DAILY [facility] Last Admin: 04/21/25 08:37 Dose: 15 mg Aripiprazole (Aripiprazole 5 Mg Tablet) 5 mg PO DAILY@1600 [facility] Last Admin: 04/20/25 15:47 Dose: 5 mg Atorvastatin Calcium (Atorvastatin Calcium 80 Mg Tablet) 80 mg PO DAILY [facility] Last Admin: 04/21/25 08:37 Dose: 80 mg Donepezil HCl (Donepezil Hcl 5 Mg Tablet) 5 mg PO BEDTIME [facility] Last Admin: 04/20/25 20:53 Dose: 5 mg Magnesium Hydroxide (Milk Of Magnesia 30 Ml Oral.Susp) 30 ml PO DAILY PRN PRN Reason: Constipation Methimazole (Methimazole 10 Mg Tablet) 10 mg PO DAILY [facility] Last Admin: 04/21/25 08:37 Dose: 10 mg Mirtazapine (Mirtazapine 15 Mg Tablet) 15 mg PO BEDTIME [facility] Last Admin: 04/20/25 20:53 Dose: 15 mg Nicotine Polacrilex (Nicotine Polacrilex 2 Mg Gum) 4 mg BUCCAL Q2H PRN PRN Reason: Nicotine Cravings Olanzapine (Olanzapine 5 Mg Tablet) 5 mg PO TID PRN PRN Reason: agitation Omeprazole (Omeprazole 20 Mg Capsule.Dr) 20 mg PO DAILY@0630 [facility] Last Admin: 04/21/25 06:20 Dose: 20 mg Spironolactone (Spironolactone 25 Mg Tablet) 25 mg PO DAILY [facility]; Protocol Last Admin: 04/21/25 09:22 Dose: Not Given Trazodone HCl (Trazodone Hcl 25 Mg Halftab) 25 mg PO BEDTIME MRX1 PRN PRN Reason: Insomnia Last Admin: 04/20/25 20:53 Dose: 25 mg Trazodone HCl (Trazodone Hcl 25 Mg Halftab) 12.5 mg PO Q4H PRN PRN Reason: anxiety/agitation Allergies Allergies Allergy/AdvReac Type Severity Reaction Status Date / Time codeine Allergy Intermediate hives Verified 03/28/25 21:43 NSAIDS (Non-Steroidal AdvReac Severe gi bleed Verified 04/05/25 10:40 Anti-Inflamma Assessment & Plan Assessment & Plan (1) Graves disease: Status: Acute Code(s): E05.00 - Thyrotoxicosis with diffuse goiter without thyrotoxic crisis or storm Assessment and Plan: Pt is a 70-year-old female with a PMH significant for?HLD/CAD, NSTEMI 17 years ago, HTN, HFpEF, aniety, and depression who is admitted to [facility] for increasing depression with SI. Pt initially presented to [facility] for profound lethargy and inability to function at home. Workup was negative except for undetectable TSH but T3 and T4 WNL. While in the ED pt became agitated with multiple outbursts, including throwing coffee, kicking and screaming, and swearing at staff. Pt was not redirectable and required IM Zyprexa. Seen today for right ear pain, transaminitis. . Right otitis media. Augmentin 875 mgs BID for 5 days Improved HTN/CAD/HLD Continue amlodipine. Reports hx of NSTEMI 17 years ago No longer taking aspirin or Plavix, unclear if pt stopped taking on her own or at direction of cardiology Continue statin Asymptomatic bradycardia Metoprolol DC Graves disease Thyroid ultrasound without nodules but noted to be hypervascular TSI and TRAb elevated. Free T3 elevated, T4 normal Continue Methimazole 10 mgs daily Repeat labs in one week. Follow labs every 4 weeks. Will need endocrinology follow up. Abdominal pain/transaminitis Abdominal pain resolved If reoccurs we will order HIDA scan Patient reports a history of Hep C- Viral panel undetectable. Patient with a history of EtOH use Abdominal pain resolved. Liver tests reviewed with Dr. Mauro. No further intervention as abdominal pain resolved. Patient refused HIDA scan Hx of HFpEF Not in acute exacerbation Continue spironolactone Thank you for allowing me to participate in the care of this patient. We will continue to follow as needed. Please reconsult of any acute concerns or issues arise (2) MDD (major depressive disorder), recurrent episode, moderate: Status: Acute Code(s): F33.1 - Major depressive disorder, recurrent, moderate (3) Cognitive impairment: Status: Acute Code(s): R41.89 - Other symptoms and signs involving cognitive functions and awareness Plan Mrs. Martinez is a 70 year-old woman who was initially brought to [facility] due to weakness, profound lethargy and inability to care for herself. While in the ED, pt presented as agitated, combative and reported SI. Daughter reports pt has been struggling to care for herself (house without hot water, in condemnable condition and pt has not showered in several months). Pt is not able to recall events leading to this admission, despite the fact that she is oriented to month, year and place. We discussed risks, benefits and alternative treatment options. Will lower dose of xanax as pt this morning was more somnolent and lethargic although she had not received xanax. Lowered to 0.5mg po TID. continue effexor er 75mg po daily. Pt noted to have BP elevated but this was one point of care- will continue to monitor. No signs of benzo withdrawal. Pending MOCA/ACL. Will also check B12 (note that although no anemia, MCV was high). Repeat of CMP shows some degree of dehydration (elevated BUN from 14 to 23)- encourage fluids. PLAN 04/04 LFTs trending up, GI following, denies any abdominal pain, no vomiting, afebrile. pt confused as to why she is here, somewhat suspicious about her children wanting to leave her here. Will hold on starting medications until LFTs and bilirubin normalizes. Pending US of gallbladder today. 04/05 pt forgetful from day to day, confabulation with often seems more like blaming her children for doing things behind her back and thinks they are lying when bid writer explains concern in terms of memory/cog impairments. 04/06 LFTs trending down. Will start abilify for mood/suspiciousness. 04/08 continue tx. 04/09: Continue current regimen and plans. Trial of Fioricet b.i.d. PRN 04/11 increase abilify for mood. reading of MRI with neuroquant- still pending. CAUTION WITH ACETAMINOPHEN AND LFTS. ALSO CAUTION WITH NSAID- not H&H down since admission. She was started on Tapazole 10mg po daily for graves disease- newly dx here. HIDA scan for abdominal pain not completed due to pt declining- may need to reorder if pt presents with abdominal pain or again LFTs elevation. 04/12: stable, demented. asking about discharge home when awaiting placement. MRI c neuroquant pending. stable presentation. continue current mgmt for now. 04/13: poor sleep due to disruptive peer. resting today. no request for discharge. no behavioral issues. continue current mgmt. 04/14: slept 5 hours. somewhat hypomanic today, circumstantial and moderately disorganized. agreeable to stay for the time being, per SW. increase abilify to 15 mg daily for mood stability. call placed to radiology for read on MRI brain done 04/05/25. 04/15: head MRI read remains absent. stable presentation. resting today, not activated or irritable. continue current mgmt. 04/16: stable presentation. remains a bit more organized and less labile than prior, since increase in abilify dosing. also a bit more tired. T/C moving abilify to HS to prevent daytime sedation. 04/17: lying in bed, calm. does not mention agitation around midnight last night. no complaints or requests. continue current mgmt. continues more organized and less labile. 04/18: MRI brain c/w AD and vascular dementia. start donepezil. remains less labile and irritable since abilify dosing increase. awaiting placement. continue current mgmt. 04/19: appears to be endorsing AH and expressing paranoia re staff today. increase abilify once again, this time with added dose in the evening. otherwise continue current mgmt. 04/20/25: Patient slept for 8 hours, was medication compliant. Denied side effects. However per nursing staff, patient was struggle with taking medication last night. She has sundown symptoms, more irritable in the afternoon and evening. During conversation with this provider, patient reports that she feel irritable but denies anxiety or depression. She said medications do not do anything good. Sucks being in here. Then she is more irritable when we asked about safety concern questions. it Is a bunch of bullshit, I am done talking . However she continued engaged in conversation when this provider review with her regarding Abilify scheduled time of the afternoon dose. She is working on menu at the same time. Per nursing, patient struggle with taking Abilify in the afternoon yesterday, after he she has sundown symptoms. Therefore I will change to 1600 so nursing staff can offer her at around 3 PM. Does not make any paranoid statements. 04/20: tired, resting in the morning. no paranoid delusions expressed. court paperwork completed for affirming HCP. continue current mgmt. Reason for continued inpatient stay Substantial Risk for: inability to function Time Spent With Patient Time: Total time managing care of this patient today __35__ minutes.
--- NOTE | 2025-04-21 14:08 | PC.NURSE ---
BP 95/72 manual, pulse 41 apical. Patient stated she is feeling fine. Pt denies dizziness, no chest pain. No SOB or respiratory distress noted. Provider DR Hazel notified. AM Spironolactone and Amlodipine held. Will continue to monitor.
[2025-04-21 20:00] VITALS: BP 93/60; PULSE 58; RESP 16; TEMP 36.2; O2SAT 96
[2025-04-21] MEDS: traZODone HCL 25 MG HALFTAB PO (20:34)
[2025-04-22 08:33] VITALS: BP 117/71; PULSE 72; RESP 18; TEMP 36.8; O2SAT 95
--- NOTE | 2025-04-22 11:23 | HO.PSYCHPN ---
Subjective Subjective Date of Service: 04/22/25 Reason For Visit: decompensation/ depression Interim History: stable presentation. resting in bed after breakfast, c/o fatigue. also c/o lethargy. denies URI Sx. no requests or complaints. per staff, pleasant, cooperative. eating, taking meds. slept 8 hours. c/o shivering and chills. afebrile. Mental Status Exam Mental Status Exam Narrative: In today's visit she is alert, pleasant. speech nml in rate and amount. thoughts linear in brief interaction, no paranoid or delusional content broached. Good eye contact. Affect is appropriate and calm. No SI expressed. Judgment is impaired. Diagnostics Vital Signs (24Hr): Vital Signs - 24 hr 04/21/25 20:00 04/22/25 08:33 Temperature 97.2 F 98.2 F Pulse Rate 58 72 Respiratory Rate 16 18 Blood Pressure 93/60 117/71 Pulse Oximetry 96 95 Oxygen Delivery Method Room Air Room Air BMI result Body Mass Index 16.3 Labs 04/11/25 09:58 04/11/25 09:58 Imaging Radiology Impressions: ITS Impressions Thyroid Ultrasound 04/03/25 11:58 IMPRESSION: Heterogeneous hypervascular thyroid gland. No discrete nodules are identified. ACR TI-RADS Guidelines TR1 (0 points): Benign. No follow-up or biopsy required TR2 (2 points): Not Suspicious. No biopsy or follow up indicated TR3 (3 points): Mildly Suspicious. FNA if >= 2.5 cm, Follow if >= 1.5 cm TR4 (4-6 points): Moderately Suspicious. FNA if >= 1.5 cm, Follow if >= 1.0 cm TR5 (>=7 points): Highly Suspicious. FNA if >= 1.0 cm, Follow if >= 0.5 cm Electronically signed by: García Young MD 04/04/2025 07:08 AM EDT RP Abdomen X-Ray 04/05/25 11:25 IMPRESSION: No radiopaque foreign body is identified. Electronically signed by: García Young MD 04/05/2025 11:45 AM EDT RP Chest X-Ray 04/05/25 11:25 IMPRESSION: Clear lungs. No radiopaque foreign body is identified. Electronically signed by: García Young MD 04/05/2025 11:46 AM EDT RP Skull X-Ray 04/05/25 11:25 IMPRESSION: No radiopaque foreign body is identified. Electronically signed by: García Young MD 04/05/2025 11:47 AM EDT RP Brain MRI 04/05/25 11:38 IMPRESSION: 1. No evidence of intracranial hemorrhage, acute infarction, mass effect, or edema. 2. Age advanced cerebral and cerebellar volume loss. Please refer to the above, and the full neuroquantitative report included with the examination. 3. Moderate to severe changes of small vessel ischemia. 4. Crib d'etat appearance of the basal ganglia suggestive of sequela of chronic hypertension. Electronically signed by: Ruddy Moreau MD 04/18/2025 08:28 AM EDT RP Medications Medications Current Medications Acetaminophen (Acetaminophen 325 Mg Tablet) 650 mg PO Q6H PRN PRN Reason: Pain 1-10 or headache Last Admin: 04/22/25 09:25 Dose: 650 mg Acetaminophen/Butalbital/Caffeine (Butalb/Acetamin/Caff 50/325/40 Tablet) 1 tab PO BID PRN PRN Reason: Pain, Moderate(Pain Scale 4-6) Last Admin: 04/16/25 16:54 Dose: 1 tab Al Hydroxide/Mg Hydroxide (Magnesium Hydrox/Alum Hydrox 30 Ml Oral.Susp) 30 ml PO Q6H PRN PRN Reason: Heartburn/Nausea Alprazolam (Alprazolam 0.25 Mg Tablet) 0.25 mg PO BID PRN PRN Reason: agitation/anxiety Last Admin: 04/21/25 20:35 Dose: 0.25 mg Amlodipine Besylate (Amlodipine Besylate 5 Mg Tablet) 5 mg PO DAILY [facility]; Protocol Last Admin: 04/22/25 08:35 Dose: 5 mg Aripiprazole (Aripiprazole 15 Mg Tablet) 15 mg PO DAILY [facility] Last Admin: 04/22/25 08:35 Dose: 15 mg Aripiprazole (Aripiprazole 5 Mg Tablet) 5 mg PO DAILY@1600 [facility] Last Admin: 04/21/25 15:45 Dose: 5 mg Atorvastatin Calcium (Atorvastatin Calcium 80 Mg Tablet) 80 mg PO DAILY [facility] Last Admin: 04/22/25 08:36 Dose: 80 mg Donepezil HCl (Donepezil Hcl 5 Mg Tablet) 5 mg PO BEDTIME [facility] Last Admin: 04/21/25 20:35 Dose: 5 mg Magnesium Hydroxide (Milk Of Magnesia 30 Ml Oral.Susp) 30 ml PO DAILY PRN PRN Reason: Constipation Methimazole (Methimazole 10 Mg Tablet) 10 mg PO DAILY [facility] Last Admin: 04/22/25 08:35 Dose: 10 mg Mirtazapine (Mirtazapine 15 Mg Tablet) 15 mg PO BEDTIME [facility] Last Admin: 04/21/25 20:34 Dose: 15 mg Nicotine Polacrilex (Nicotine Polacrilex 2 Mg Gum) 4 mg BUCCAL Q2H PRN PRN Reason: Nicotine Cravings Olanzapine (Olanzapine 5 Mg Tablet) 5 mg PO TID PRN PRN Reason: agitation Omeprazole (Omeprazole 20 Mg Capsule.Dr) 20 mg PO DAILY@0630 [facility] Last Admin: 04/22/25 06:10 Dose: 20 mg Spironolactone (Spironolactone 25 Mg Tablet) 25 mg PO DAILY [facility]; Protocol Last Admin: 04/22/25 08:35 Dose: 25 mg Trazodone HCl (Trazodone Hcl 25 Mg Halftab) 25 mg PO BEDTIME MRX1 PRN PRN Reason: Insomnia Last Admin: 04/21/25 20:34 Dose: 25 mg Trazodone HCl (Trazodone Hcl 25 Mg Halftab) 12.5 mg PO Q4H PRN PRN Reason: anxiety/agitation Allergies Allergies Allergy/AdvReac Type Severity Reaction Status Date / Time codeine Allergy Intermediate hives Verified 03/28/25 21:43 NSAIDS (Non-Steroidal AdvReac Severe gi bleed Verified 04/05/25 10:40 Anti-Inflamma Assessment & Plan Assessment & Plan (1) Graves disease: Status: Acute Code(s): E05.00 - Thyrotoxicosis with diffuse goiter without thyrotoxic crisis or storm Assessment and Plan: Pt is a 70-year-old female with a PMH significant for?HLD/CAD, NSTEMI 17 years ago, HTN, HFpEF, aniety, and depression who is admitted to [facility] for increasing depression with SI. Pt initially presented to [facility] for profound lethargy and inability to function at home. Workup was negative except for undetectable TSH but T3 and T4 WNL. While in the ED pt became agitated with multiple outbursts, including throwing coffee, kicking and screaming, and swearing at staff. Pt was not redirectable and required IM Zyprexa. Seen today for right ear pain, transaminitis. . Right otitis media. Augmentin 875 mgs BID for 5 days Improved HTN/CAD/HLD Continue amlodipine. Reports hx of NSTEMI 17 years ago No longer taking aspirin or Plavix, unclear if pt stopped taking on her own or at direction of cardiology Continue statin Asymptomatic bradycardia Metoprolol DC Graves disease Thyroid ultrasound without nodules but noted to be hypervascular TSI and TRAb elevated. Free T3 elevated, T4 normal Continue Methimazole 10 mgs daily Repeat labs in one week. Follow labs every 4 weeks. Will need endocrinology follow up. Abdominal pain/transaminitis Abdominal pain resolved If reoccurs we will order HIDA scan Patient reports a history of Hep C- Viral panel undetectable. Patient with a history of EtOH use Abdominal pain resolved. Liver tests reviewed with Dr. Mauro. No further intervention as abdominal pain resolved. Patient refused HIDA scan Hx of HFpEF Not in acute exacerbation Continue spironolactone Thank you for allowing me to participate in the care of this patient. We will continue to follow as needed. Please reconsult of any acute concerns or issues arise (2) MDD (major depressive disorder), recurrent episode, moderate: Status: Acute Code(s): F33.1 - Major depressive disorder, recurrent, moderate (3) Cognitive impairment: Status: Acute Code(s): R41.89 - Other symptoms and signs involving cognitive functions and awareness Plan Mrs. Martinez is a 70 year-old woman who was initially brought to [facility] due to weakness, profound lethargy and inability to care for herself. While in the ED, pt presented as agitated, combative and reported SI. Daughter reports pt has been struggling to care for herself (house without hot water, in condemnable condition and pt has not showered in several months). Pt is not able to recall events leading to this admission, despite the fact that she is oriented to month, year and place. We discussed risks, benefits and alternative treatment options. Will lower dose of xanax as pt this morning was more somnolent and lethargic although she had not received xanax. Lowered to 0.5mg po TID. continue effexor er 75mg po daily. Pt noted to have BP elevated but this was one point of care- will continue to monitor. No signs of benzo withdrawal. Pending MOCA/ACL. Will also check B12 (note that although no anemia, MCV was high). Repeat of CMP shows some degree of dehydration (elevated BUN from 14 to 23)- encourage fluids. PLAN 04/04 LFTs trending up, GI following, denies any abdominal pain, no vomiting, afebrile. pt confused as to why she is here, somewhat suspicious about her children wanting to leave her here. Will hold on starting medications until LFTs and bilirubin normalizes. Pending US of gallbladder today. 04/05 pt forgetful from day to day, confabulation with often seems more like blaming her children for doing things behind her back and thinks they are lying when radio script writer explains concern in terms of memory/cog impairments. 04/06 LFTs trending down. Will start abilify for mood/suspiciousness. 04/08 continue tx. 04/09: Continue current regimen and plans. Trial of Fioricet b.i.d. PRN 04/11 increase abilify for mood. reading of MRI with neuroquant- still pending. CAUTION WITH ACETAMINOPHEN AND LFTS. ALSO CAUTION WITH NSAID- not H&H down since admission. She was started on Tapazole 10mg po daily for graves disease- newly dx here. HIDA scan for abdominal pain not completed due to pt declining- may need to reorder if pt presents with abdominal pain or again LFTs elevation. 04/12: stable, demented. asking about discharge home when awaiting placement. MRI c neuroquant pending. stable presentation. continue current mgmt for now. 04/13: poor sleep due to disruptive peer. resting today. no request for discharge. no behavioral issues. continue current mgmt. 04/14: slept 5 hours. somewhat hypomanic today, circumstantial and moderately disorganized. agreeable to stay for the time being, per SW. increase abilify to 15 mg daily for mood stability. call placed to radiology for read on MRI brain done 04/05/25. 04/15: head MRI read remains absent. stable presentation. resting today, not activated or irritable. continue current mgmt. 04/16: stable presentation. remains a bit more organized and less labile than prior, since increase in abilify dosing. also a bit more tired. T/C moving abilify to HS to prevent daytime sedation. 04/17: lying in bed, calm. does not mention agitation around midnight last night. no complaints or requests. continue current mgmt. continues more organized and less labile. 04/18: MRI brain c/w AD and vascular dementia. start donepezil. remains less labile and irritable since abilify dosing increase. awaiting placement. continue current mgmt. 04/19: appears to be endorsing AH and expressing paranoia re staff today. increase abilify once again, this time with added dose in the evening. otherwise continue current mgmt. 04/20/25: Patient slept for 8 hours, was medication compliant. Denied side effects. However per nursing staff, patient was struggle with taking medication last night. She has sundown symptoms, more irritable in the afternoon and evening. During conversation with this provider, patient reports that she feel irritable but denies anxiety or depression. She said medications do not do anything good. Sucks being in here. Then she is more irritable when we asked about safety concern questions. it Is a bunch of bullshit, I am done talking . However she continued engaged in conversation when this provider review with her regarding Abilify scheduled time of the afternoon dose. She is working on menu at the same time. Per nursing, patient struggle with taking Abilify in the afternoon yesterday, after he she has sundown symptoms. Therefore I will change to 1600 so nursing staff can offer her at around 3 PM. Does not make any paranoid statements. 04/20: tired, resting in the morning. no paranoid delusions expressed. court paperwork completed for affirming HCP. continue current mgmt. 04/22: as for yesterday. reportedly c/o chills, shivering overnight, denies today. afebrile. continue current mgmt. Reason for continued inpatient stay Substantial Risk for: inability to function Time Spent With Patient Time: Total time managing care of this patient today ____ minutes.
[2025-04-22 20:00] VITALS: BP 96/62; PULSE 50; RESP 16; TEMP 36.6; O2SAT 98
[2025-04-22] MEDS: traZODone HCL 25 MG HALFTAB PO (20:05)
[2025-04-23 08:00] VITALS: BP 110/66; PULSE 61; RESP 16; TEMP 36.1; O2SAT 96
[2025-04-23 08:31] VITALS: BP 110/66
--- NOTE | 2025-04-23 10:35 | P.PNPSI_ITS ---
Subjective Subjective Date of Service: 04/23/25 Reason For Visit: decompensation/ depression Interim History: Pt seen, discussed with the team. In bed when seen this a.m. feeling anergy. Seen this evening again-alert, engaged with peers, attempting to assist her room-mate, spontaneous smiling, initiates conversation with warm humor. Medication Compliance: Yes Side effects from medications: No Attending Groups: Yes Review of Systems Acute medical concerns: No Review of Systems Review of Systems low energy Mental Status Exam Mental Status Exam Patient Appearance: Appropriate Patient Orientation: Person Level of Consciousness: Alert Patient Behavior: Talkative and Cooperative Mood Description: Depressed and Cheerful Affect Description: Appropriate and Flat Patient Cognition Impaired: Yes Ability to Follow Directions: Fair Speech Pattern: Spontaneous Speech Memory Description: Remote Impaired Hallucinations: None Delusions: Not Present Thought Process: Distracted Thought Content: positive for Zirconia and positive for Circumstantial Depressive Symptoms: Increased Fatigue and Loss of Energy Judgement: Fair Diagnostics Vital Signs (24Hr): Vital Signs - 24 hr 04/22/25 20:00 04/23/25 08:00 04/23/25 08:31 Temperature 98 F 96.9 F Pulse Rate 50 61 Respiratory Rate 16 16 Blood Pressure 96/62 110/66 110/66 Pulse Oximetry 98 96 Oxygen Delivery Method Room Air Room Air BMI result Body Mass Index 16.3 Labs 04/11/25 09:58 04/11/25 09:58 Imaging Radiology Impressions: ITS Impressions Thyroid Ultrasound 04/03/25 11:58 IMPRESSION: Heterogeneous hypervascular thyroid gland. No discrete nodules are identified. ACR TI-RADS Guidelines TR1 (0 points): Benign. No follow-up or biopsy required TR2 (2 points): Not Suspicious. No biopsy or follow up indicated TR3 (3 points): Mildly Suspicious. FNA if >= 2.5 cm, Follow if >= 1.5 cm TR4 (4-6 points): Moderately Suspicious. FNA if >= 1.5 cm, Follow if >= 1.0 cm TR5 (>=7 points): Highly Suspicious. FNA if >= 1.0 cm, Follow if >= 0.5 cm Electronically signed by: García Young MD 04/04/2025 07:08 AM EDT Abdomen X-Ray 04/05/25 11:25 IMPRESSION: No radiopaque foreign body is identified. Electronically signed by: García Young MD 04/05/2025 11:45 AM EDT RP Chest X-Ray 04/05/25 11:25 IMPRESSION: Clear lungs. No radiopaque foreign body is identified. Electronically signed by: García Young MD 04/05/2025 11:46 AM EDT RP Skull X-Ray 04/05/25 11:25 IMPRESSION: No radiopaque foreign body is identified. Electronically signed by: García Young MD 04/05/2025 11:47 AM EDT RP Brain MRI 04/05/25 11:38 IMPRESSION: 1. No evidence of intracranial hemorrhage, acute infarction, mass effect, or edema. 2. Age advanced cerebral and cerebellar volume loss. Please refer to the above, and the full neuroquantitative report included with the examination. 3. Moderate to severe changes of small vessel ischemia. 4. Crib d'etat appearance of the basal ganglia suggestive of sequela of chronic hypertension. Electronically signed by: Ruddy Moreau MD 04/18/2025 08:28 AM EDT RP Medications Medications Current Medications Acetaminophen (Acetaminophen 325 Mg Tablet) 650 mg PO Q6H PRN PRN Reason: Pain 1-10 or headache Last Admin: 04/22/25 09:25 Dose: 650 mg Acetaminophen/Butalbital/Caffeine (Butalb/Acetamin/Caff 50/325/40 Tablet) 1 tab PO BID PRN PRN Reason: Pain, Moderate(Pain Scale 4-6) Last Admin: 04/16/25 16:54 Dose: 1 tab Al Hydroxide/Mg Hydroxide (Magnesium Hydrox/Alum Hydrox 30 Ml Oral.Susp) 30 ml PO Q6H PRN PRN Reason: Heartburn/Nausea Alprazolam (Alprazolam 0.25 Mg Tablet) 0.25 mg PO BID PRN PRN Reason: agitation/anxiety Last Admin: 04/22/25 20:05 Dose: 0.25 mg Amlodipine Besylate (Amlodipine Besylate 5 Mg Tablet) 5 mg PO DAILY ROGELIO; Protocol Last Admin: 04/23/25 08:31 Dose: 5 mg Aripiprazole (Aripiprazole 15 Mg Tablet) 15 mg PO DAILY ROGELIO Last Admin: 04/23/25 08:30 Dose: 15 mg Aripiprazole (Aripiprazole 5 Mg Tablet) 5 mg PO DAILY@1600 [facility] Last Admin: 04/22/25 15:21 Dose: 5 mg Atorvastatin Calcium (Atorvastatin Calcium 80 Mg Tablet) 80 mg PO DAILY [facility] Last Admin: 04/23/25 08:31 Dose: 80 mg Donepezil HCl (Donepezil Hcl 5 Mg Tablet) 5 mg PO BEDTIME [facility] Last Admin: 04/22/25 20:05 Dose: 5 mg Magnesium Hydroxide (Milk Of Magnesia 30 Ml Oral.Susp) 30 ml PO DAILY PRN PRN Reason: Constipation Methimazole (Methimazole 10 Mg Tablet) 10 mg PO DAILY [facility] Last Admin: 04/23/25 08:31 Dose: 10 mg Mirtazapine (Mirtazapine 15 Mg Tablet) 15 mg PO BEDTIME [facility] Last Admin: 04/22/25 20:05 Dose: 15 mg Nicotine Polacrilex (Nicotine Polacrilex 2 Mg Gum) 4 mg BUCCAL Q2H PRN PRN Reason: Nicotine Cravings Olanzapine (Olanzapine 5 Mg Tablet) 5 mg PO TID PRN PRN Reason: agitation Omeprazole (Omeprazole 20 Mg Capsule.Dr) 20 mg PO DAILY@0630 [facility] Last Admin: 04/23/25 06:17 Dose: 20 mg Spironolactone (Spironolactone 25 Mg Tablet) 25 mg PO DAILY [facility]; Protocol Last Admin: 04/23/25 08:31 Dose: 25 mg Trazodone HCl (Trazodone Hcl 25 Mg Halftab) 25 mg PO BEDTIME MRX1 PRN PRN Reason: Insomnia Last Admin: 04/22/25 20:05 Dose: 25 mg Trazodone HCl (Trazodone Hcl 25 Mg Halftab) 12.5 mg PO Q4H PRN PRN Reason: anxiety/agitation Allergies Allergies Allergy/AdvReac Type Severity Reaction Status Date / Time codeine Allergy Intermediate hives Verified 03/28/25 21:43 NSAIDS (Non-Steroidal AdvReac Severe gi bleed Verified 04/05/25 10:40 Anti-Inflamma Assessment & Plan Assessment & Plan (1) Graves disease: Status: Acute Code(s): E05.00 - Thyrotoxicosis with diffuse goiter without thyrotoxic crisis or storm Assessment and Plan: Pt is a 70-year-old female with a PMH significant for?HLD/CAD, NSTEMI 17 years ago, HTN, HFpEF, aniety, and depression who is admitted to [facility] for increasing depression with SI. Pt initially presented to [facility] for profound lethargy and inability to function at home. Workup was negative except for undetectable TSH but T3 and T4 WNL. While in the ED pt became agitated with multiple outbursts, including throwing coffee, kicking and screaming, and swearing at staff. Pt was not redirectable and required IM Zyprexa. Seen today for right ear pain, transaminitis. . Right otitis media. Augmentin 875 mgs BID for 5 days Improved HTN/CAD/HLD Continue amlodipine. Reports hx of NSTEMI 17 years ago No longer taking aspirin or Plavix, unclear if pt stopped taking on her own or at direction of cardiology Continue statin Asymptomatic bradycardia Metoprolol DC Graves disease Thyroid ultrasound without nodules but noted to be hypervascular TSI and TRAb elevated. Free T3 elevated, T4 normal Continue Methimazole 10 mgs daily Repeat labs in one week. Follow labs every 4 weeks. Will need endocrinology follow up. Abdominal pain/transaminitis Abdominal pain resolved If reoccurs we will order HIDA scan Patient reports a history of Hep C- Viral panel undetectable. Patient with a history of EtOH use Abdominal pain resolved. Liver tests reviewed with Dr. Mauro. No further intervention as abdominal pain resolved. Patient refused HIDA scan Hx of HFpEF Not in acute exacerbation Continue spironolactone Thank you for allowing me to participate in the care of this patient. We will continue to follow as needed. Please reconsult of any acute concerns or issues arise (2) MDD (major depressive disorder), recurrent episode, moderate: Status: Acute Code(s): F33.1 - Major depressive disorder, recurrent, moderate (3) Cognitive impairment: Status: Acute Code(s): R41.89 - Other symptoms and signs involving cognitive functions and awareness Plan Mrs. Martinez is a 70 year-old woman who was initially brought to [facility] due to weakness, profound lethargy and inability to care for herself. While in the ED, pt presented as agitated, combative and reported SI. Daughter reports pt has been struggling to care for herself (house without hot water, in condemnable condition and pt has not showered in several months). Pt is not able to recall events leading to this admission, despite the fact that she is oriented to month, year and place. We discussed risks, benefits and alternative treatment options. Will lower dose of xanax as pt this morning was more somnolent and lethargic although she had not received xanax. Lowered to 0.5mg po TID. continue effexor er 75mg po daily. Pt noted to have BP elevated but this was one point of care- will continue to monitor. No signs of benzo withdrawal. Pending MOCA/ACL. Will also check B12 (note that although no anemia, MCV was high). Repeat of CMP shows some degree of dehydration (elevated BUN from 14 to 23)- encourage fluids. PLAN 04/04 LFTs trending up, GI following, denies any abdominal pain, no vomiting, afebrile. pt confused as to why she is here, somewhat suspicious about her children wanting to leave her here. Will hold on starting medications until LFTs and bilirubin normalizes. Pending US of gallbladder today. 04/05 pt forgetful from day to day, confabulation with often seems more like blaming her children for doing things behind her back and thinks they are lying when leader writer explains concern in terms of memory/cog impairments. 04/06 LFTs trending down. Will start abilify for mood/suspiciousness. 04/08 continue tx. 04/09: Continue current regimen and plans. Trial of Fioricet b.i.d. PRN 04/11 increase abilify for mood. reading of MRI with neuroquant- still pending. CAUTION WITH ACETAMINOPHEN AND LFTS. ALSO CAUTION WITH NSAID- not H&H down since admission. She was started on Tapazole 10mg po daily for graves disease- newly dx here. HIDA scan for abdominal pain not completed due to pt declining- may need to reorder if pt presents with abdominal pain or again LFTs elevation. 04/12: stable, demented. asking about discharge home when awaiting placement. MRI c neuroquant pending. stable presentation. continue current mgmt for now. 04/13: poor sleep due to disruptive peer. resting today. no request for discharge. no behavioral issues. continue current mgmt. 04/14: slept 5 hours. somewhat hypomanic today, circumstantial and moderately disorganized. agreeable to stay for the time being, per SW. increase abilify to 15 mg daily for mood stability. call placed to radiology for read on MRI brain done 04/05/25. 04/15: head MRI read remains absent. stable presentation. resting today, not activated or irritable. continue current mgmt. 04/16: stable presentation. remains a bit more organized and less labile than prior, since increase in abilify dosing. also a bit more tired. T/C moving abilify to HS to prevent daytime sedation. 04/17: lying in bed, calm. does not mention agitation around midnight last night. no complaints or requests. continue current mgmt. continues more organized and less labile. 04/18: MRI brain c/w AD and vascular dementia. start donepezil. remains less labile and irritable since abilify dosing increase. awaiting placement. continue current mgmt. 04/19: appears to be endorsing AH and expressing paranoia re staff today. increase abilify once again, this time with added dose in the evening. otherwise continue current mgmt. 04/20/25: Patient slept for 8 hours, was medication compliant. Denied side effects. However per nursing staff, patient was struggle with taking medication last night. She has sundown symptoms, more irritable in the afternoon and evening. During conversation with this provider, patient reports that she feel irritable but denies anxiety or depression. She said medications do not do anything good. Sucks being in here. Then she is more irritable when we asked about safety concern questions. it Is a bunch of bullshit, I am done talking . However she continued engaged in conversation when this provider review with her regarding Abilify scheduled time of the afternoon dose. She is working on menu at the same time. Per nursing, patient struggle with taking Abilify in the afternoon yesterday, after he she has sundown symptoms. Therefore I will change to 1600 so nursing staff can offer her at around 3 PM. Does not make any paranoid statements. 04/20: tired, resting in the morning. no paranoid delusions expressed. court paperwork completed for affirming HCP. continue current mgmt. 04/22: as for yesterday. reportedly c/o chills, shivering overnight, denies today. afebrile. continue current mgmt. 04/23: continue current tx Reason for continued inpatient stay Substantial Risk for: rapid decompensation and med/psych decompensation Time Spent With Patient Time: Total time managing care of this patient today ____ minutes.
[2025-04-23 20:00] VITALS: BP 88/60; PULSE 52; RESP 16; O2SAT 95
[2025-04-23] MEDS: traZODone HCL 25 MG HALFTAB PO (20:25)
[2025-04-23 21:20] VITALS: BP 92/62
[2025-04-24 08:00] VITALS: BP 91/65; PULSE 67; O2SAT 96
--- NOTE | 2025-04-24 13:22 | HO.PSYCHPN ---
Subjective Subjective Date of Service: 04/24/25 Reason For Visit: decompensation/ depression Interim History: Pt seen and discussed with her team. Pt is awake, resting in bed when seen. She reports doing well. No current sx she would like to discuss. Team reports Shelbiy has been very helpful for her. Medication Compliance: Yes Side effects from medications: No Attending Groups: Intermittent Review of Systems Acute medical concerns: No Medical Review of Systems: unchanged Review of Systems Review of Systems Denied Mental Status Exam Mental Status Exam Patient Appearance: Appropriate Patient Orientation: Person Level of Consciousness: Alert Patient Behavior: Talkative and Cooperative Mood Description: Depressed and Cheerful Affect Description: Appropriate and Flat Patient Cognition Impaired: Yes Ability to Follow Directions: Fair Speech Pattern: Spontaneous Speech Memory Description: Remote Impaired Hallucinations: None Delusions: Not Present Thought Process: Distracted Thought Content: positive for [place] and positive for Circumstantial Depressive Symptoms: Increased Fatigue and Loss of Energy Judgement: Fair Diagnostics Vital Signs (24Hr): Vital Signs - 24 hr 04/23/25 20:00 04/23/25 21:20 04/24/25 08:00 Pulse Rate 52 67 Respiratory Rate 16 Blood Pressure 88/60 L 92/62 91/65 Pulse Oximetry 95 96 Oxygen Delivery Method Room Air BMI result Body Mass Index 16.3 Labs 04/11/25 09:58 04/11/25 09:58 Imaging Radiology Impressions: ITS Impressions Thyroid Ultrasound 04/03/25 11:58 IMPRESSION: Heterogeneous hypervascular thyroid gland. No discrete nodules are identified. ACR TI-RADS Guidelines TR1 (0 points): Benign. No follow-up or biopsy required TR2 (2 points): Not Suspicious. No biopsy or follow up indicated TR3 (3 points): Mildly Suspicious. FNA if >= 2.5 cm, Follow if >= 1.5 cm TR4 (4-6 points): Moderately Suspicious. FNA if >= 1.5 cm, Follow if >= 1.0 cm TR5 (>=7 points): Highly Suspicious. FNA if >= 1.0 cm, Follow if >= 0.5 cm Electronically signed by: García Young MD 04/04/2025 07:08 AM EDT Abdomen X-Ray 04/05/25 11:25 IMPRESSION: No radiopaque foreign body is identified. Electronically signed by: García Young MD 04/05/2025 11:45 AM EDT RP Chest X-Ray 04/05/25 11:25 IMPRESSION: Clear lungs. No radiopaque foreign body is identified. Electronically signed by: García Young MD 04/05/2025 11:46 AM EDT RP Skull X-Ray 04/05/25 11:25 IMPRESSION: No radiopaque foreign body is identified. Electronically signed by: García Young MD 04/05/2025 11:47 AM EDT RP Brain MRI 04/05/25 11:38 IMPRESSION: 1. No evidence of intracranial hemorrhage, acute infarction, mass effect, or edema. 2. Age advanced cerebral and cerebellar volume loss. Please refer to the above, and the full neuroquantitative report included with the examination. 3. Moderate to severe changes of small vessel ischemia. 4. Crib d'etat appearance of the basal ganglia suggestive of sequela of chronic hypertension. Electronically signed by: Ruddy Moreau MD 04/18/2025 08:28 AM EDT RP Medications Medications Current Medications Acetaminophen (Acetaminophen 325 Mg Tablet) 650 mg PO Q6H PRN PRN Reason: Pain 1-10 or headache Last Admin: 04/23/25 22:54 Dose: 650 mg Acetaminophen/Butalbital/Caffeine (Butalb/Acetamin/Caff 50/325/40 Tablet) 1 tab PO BID PRN PRN Reason: Pain, Moderate(Pain Scale 4-6) Last Admin: 04/16/25 16:54 Dose: 1 tab Al Hydroxide/Mg Hydroxide (Magnesium Hydrox/Alum Hydrox 30 Ml Oral.Susp) 30 ml PO Q6H PRN PRN Reason: Heartburn/Nausea Alprazolam (Alprazolam 0.25 Mg Tablet) 0.25 mg PO BID PRN PRN Reason: agitation/anxiety Last Admin: 04/23/25 20:25 Dose: 0.25 mg Amlodipine Besylate (Amlodipine Besylate 5 Mg Tablet) 5 mg PO DAILY ROGELIO; Protocol Last Admin: 04/24/25 08:55 Dose: 5 mg Aripiprazole (Aripiprazole 15 Mg Tablet) 15 mg PO DAILY ROGELIO Last Admin: 04/24/25 08:55 Dose: 15 mg Aripiprazole (Aripiprazole 5 Mg Tablet) 5 mg PO DAILY@1600 [facility] Last Admin: 04/23/25 16:36 Dose: 5 mg Atorvastatin Calcium (Atorvastatin Calcium 80 Mg Tablet) 80 mg PO DAILY [facility] Last Admin: 04/24/25 08:55 Dose: 80 mg Donepezil HCl (Donepezil Hcl 5 Mg Tablet) 5 mg PO BEDTIME [facility] Last Admin: 04/23/25 20:25 Dose: 5 mg Magnesium Hydroxide (Milk Of Magnesia 30 Ml Oral.Susp) 30 ml PO DAILY PRN PRN Reason: Constipation Methimazole (Methimazole 10 Mg Tablet) 10 mg PO DAILY [facility] Last Admin: 04/24/25 08:55 Dose: 10 mg Mirtazapine (Mirtazapine 15 Mg Tablet) 15 mg PO BEDTIME [facility] Last Admin: 04/23/25 20:25 Dose: 15 mg Nicotine Polacrilex (Nicotine Polacrilex 2 Mg Gum) 4 mg BUCCAL Q2H PRN PRN Reason: Nicotine Cravings Olanzapine (Olanzapine 5 Mg Tablet) 5 mg PO TID PRN PRN Reason: agitation Omeprazole (Omeprazole 20 Mg Capsule.Dr) 20 mg PO DAILY@0630 [facility] Last Admin: 04/24/25 06:07 Dose: 20 mg Spironolactone (Spironolactone 25 Mg Tablet) 25 mg PO DAILY [facility]; Protocol Last Admin: 04/24/25 08:55 Dose: 25 mg Trazodone HCl (Trazodone Hcl 25 Mg Halftab) 25 mg PO BEDTIME MRX1 PRN PRN Reason: Insomnia Last Admin: 04/23/25 20:25 Dose: 25 mg Trazodone HCl (Trazodone Hcl 25 Mg Halftab) 12.5 mg PO Q4H PRN PRN Reason: anxiety/agitation Allergies Allergies Allergy/AdvReac Type Severity Reaction Status Date / Time codeine Allergy Intermediate hives Verified 03/28/25 21:43 NSAIDS (Non-Steroidal AdvReac Severe gi bleed Verified 04/05/25 10:40 Anti-Inflamma Assessment & Plan Assessment & Plan (1) Graves disease: Status: Acute Code(s): E05.00 - Thyrotoxicosis with diffuse goiter without thyrotoxic crisis or storm Assessment and Plan: Pt is a 70-year-old female with a PMH significant for?HLD/CAD, NSTEMI 17 years ago, HTN, HFpEF, aniety, and depression who is admitted to [facility] for increasing depression with SI. Pt initially presented to [facility] for profound lethargy and inability to function at home. Workup was negative except for undetectable TSH but T3 and T4 WNL. While in the ED pt became agitated with multiple outbursts, including throwing coffee, kicking and screaming, and swearing at staff. Pt was not redirectable and required IM Zyprexa. Seen today for right ear pain, transaminitis. . Right otitis media. Augmentin 875 mgs BID for 5 days Improved HTN/CAD/HLD Continue amlodipine. Reports hx of NSTEMI 17 years ago No longer taking aspirin or Plavix, unclear if pt stopped taking on her own or at direction of cardiology Continue statin Asymptomatic bradycardia Metoprolol DC Graves disease Thyroid ultrasound without nodules but noted to be hypervascular TSI and TRAb elevated. Free T3 elevated, T4 normal Continue Methimazole 10 mgs daily Repeat labs in one week. Follow labs every 4 weeks. Will need endocrinology follow up. Abdominal pain/transaminitis Abdominal pain resolved If reoccurs we will order HIDA scan Patient reports a history of Hep C- Viral panel undetectable. Patient with a history of EtOH use Abdominal pain resolved. Liver tests reviewed with Dr. Mauro. No further intervention as abdominal pain resolved. Patient refused HIDA scan Hx of HFpEF Not in acute exacerbation Continue spironolactone Thank you for allowing me to participate in the care of this patient. We will continue to follow as needed. Please reconsult of any acute concerns or issues arise (2) MDD (major depressive disorder), recurrent episode, moderate: Status: Acute Code(s): F33.1 - Major depressive disorder, recurrent, moderate (3) Cognitive impairment: Status: Acute Code(s): R41.89 - Other symptoms and signs involving cognitive functions and awareness Plan Mrs. Martinez is a 70 year-old woman who was initially brought to [facility] due to weakness, profound lethargy and inability to care for herself. While in the ED, pt presented as agitated, combative and reported SI. Daughter reports pt has been struggling to care for herself (house without hot water, in condemnable condition and pt has not showered in several months). Pt is not able to recall events leading to this admission, despite the fact that she is oriented to month, year and place. We discussed risks, benefits and alternative treatment options. Will lower dose of xanax as pt this morning was more somnolent and lethargic although she had not received xanax. Lowered to 0.5mg po TID. continue effexor er 75mg po daily. Pt noted to have BP elevated but this was one point of care- will continue to monitor. No signs of benzo withdrawal. Pending MOCA/ACL. Will also check B12 (note that although no anemia, MCV was high). Repeat of CMP shows some degree of dehydration (elevated BUN from 14 to 23)- encourage fluids. PLAN 04/04 LFTs trending up, GI following, denies any abdominal pain, no vomiting, afebrile. pt confused as to why she is here, somewhat suspicious about her children wanting to leave her here. Will hold on starting medications until LFTs and bilirubin normalizes. Pending US of gallbladder today. 04/05 pt forgetful from day to day, confabulation with often seems more like blaming her children for doing things behind her back and thinks they are lying when telegraphic typewriter operator explains concern in terms of memory/cog impairments. 04/06 LFTs trending down. Will start abilify for mood/suspiciousness. 04/08 continue tx. 04/09: Continue current regimen and plans. Trial of Fioricet b.i.d. PRN 04/11 increase abilify for mood. reading of MRI with neuroquant- still pending. CAUTION WITH ACETAMINOPHEN AND LFTS. ALSO CAUTION WITH NSAID- not H&H down since admission. She was started on Tapazole 10mg po daily for graves disease- newly dx here. HIDA scan for abdominal pain not completed due to pt declining- may need to reorder if pt presents with abdominal pain or again LFTs elevation. 04/12: stable, demented. asking about discharge home when awaiting placement. MRI c neuroquant pending. stable presentation. continue current mgmt for now. 04/13: poor sleep due to disruptive peer. resting today. no request for discharge. no behavioral issues. continue current mgmt. 04/14: slept 5 hours. somewhat hypomanic today, circumstantial and moderately disorganized. agreeable to stay for the time being, per SW. increase abilify to 15 mg daily for mood stability. call placed to radiology for read on MRI brain done 04/05/25. 04/15: head MRI read remains absent. stable presentation. resting today, not activated or irritable. continue current mgmt. 04/16: stable presentation. remains a bit more organized and less labile than prior, since increase in abilify dosing. also a bit more tired. T/C moving abilify to HS to prevent daytime sedation. 04/17: lying in bed, calm. does not mention agitation around midnight last night. no complaints or requests. continue current mgmt. continues more organized and less labile. 04/18: MRI brain c/w AD and vascular dementia. start donepezil. remains less labile and irritable since abilify dosing increase. awaiting placement. continue current mgmt. 04/19: appears to be endorsing AH and expressing paranoia re staff today. increase abilify once again, this time with added dose in the evening. otherwise continue current mgmt. 04/20/25: Patient slept for 8 hours, was medication compliant. Denied side effects. However per nursing staff, patient was struggle with taking medication last night. She has sundown symptoms, more irritable in the afternoon and evening. During conversation with this provider, patient reports that she feel irritable but denies anxiety or depression. She said medications do not do anything good. Sucks being in here. Then she is more irritable when we asked about safety concern questions. it Is a bunch of bullshit, I am done talking . However she continued engaged in conversation when this provider review with her regarding Abilify scheduled time of the afternoon dose. She is working on menu at the same time. Per nursing, patient struggle with taking Abilify in the afternoon yesterday, after he she has sundown symptoms. Therefore I will change to 1600 so nursing staff can offer her at around 3 PM. Does not make any paranoid statements. 04/20: tired, resting in the morning. no paranoid delusions expressed. court paperwork completed for affirming HCP. continue current mgmt. 04/22: as for yesterday. reportedly c/o chills, shivering overnight, denies today. afebrile. continue current mgmt. 04/23: continue current tx 04/24: continue current tx Reason for continued inpatient stay Substantial Risk for: rapid decompensation Time Spent With Patient Time: Total time managing care of this patient today ____ minutes.
[2025-04-24 20:00] VITALS: BP 102/60; PULSE 50; RESP 16; TEMP 36.4; O2SAT 97
[2025-04-24] MEDS: traZODone HCL 25 MG HALFTAB PO (21:29)
[2025-04-25 09:00] VITALS: BP 176/74; PULSE 44; RESP 16; TEMP 36.4; O2SAT 97
--- NOTE | 2025-04-25 10:34 | HO.PSYCHPN ---
Subjective Subjective Date of Service: 04/25/25 Reason For Visit: decompensation/ depression Interim History: tired, resting in bed. c/o RAMIRES this morning. no questions or complaints. per staff, isolative. in room. saying repeatedly she's going home tomorrow. eating. slept 8 hours. Mental Status Exam Mental Status Exam Narrative: In today's visit she is alert, pleasant. speech nml in rate and amount. thoughts linear in brief interaction, no paranoid or delusional content broached. Good eye contact. Affect is appropriate and calm. No SI expressed. Judgment is impaired. Diagnostics Vital Signs (24Hr): Vital Signs - 24 hr 04/24/25 20:00 04/25/25 09:00 Temperature 97.5 F 97.6 F Pulse Rate 50 44 L Respiratory Rate 16 16 Blood Pressure 102/60 176/74 H Pulse Oximetry 97 97 Oxygen Delivery Method Room Air Room Air BMI result Body Mass Index 16.3 Labs 04/11/25 09:58 04/11/25 09:58 Imaging Radiology Impressions: ITS Impressions Thyroid Ultrasound 04/03/25 11:58 IMPRESSION: Heterogeneous hypervascular thyroid gland. No discrete nodules are identified. ACR TI-RADS Guidelines TR1 (0 points): Benign. No follow-up or biopsy required TR2 (2 points): Not Suspicious. No biopsy or follow up indicated TR3 (3 points): Mildly Suspicious. FNA if >= 2.5 cm, Follow if >= 1.5 cm TR4 (4-6 points): Moderately Suspicious. FNA if >= 1.5 cm, Follow if >= 1.0 cm TR5 (>=7 points): Highly Suspicious. FNA if >= 1.0 cm, Follow if >= 0.5 cm Electronically signed by: García Young MD 04/04/2025 07:08 AM EDT RP Abdomen X-Ray 04/05/25 11:25 IMPRESSION: No radiopaque foreign body is identified. Electronically signed by: García Young MD 04/05/2025 11:45 AM EDT RP Chest X-Ray 04/05/25 11:25 IMPRESSION: Clear lungs. No radiopaque foreign body is identified. Electronically signed by: García Young MD 04/05/2025 11:46 AM EDT RP Skull X-Ray 04/05/25 11:25 IMPRESSION: No radiopaque foreign body is identified. Electronically signed by: García Young MD 04/05/2025 11:47 AM EDT RP Brain MRI 04/05/25 11:38 IMPRESSION: 1. No evidence of intracranial hemorrhage, acute infarction, mass effect, or edema. 2. Age advanced cerebral and cerebellar volume loss. Please refer to the above, and the full neuroquantitative report included with the examination. 3. Moderate to severe changes of small vessel ischemia. 4. Crib d'etat appearance of the basal ganglia suggestive of sequela of chronic hypertension. Electronically signed by: Ruddy Moreau MD 04/18/2025 08:28 AM EDT RP Medications Medications Current Medications Acetaminophen (Acetaminophen 325 Mg Tablet) 650 mg PO Q6H PRN PRN Reason: Pain 1-10 or headache Last Admin: 04/25/25 08:00 Dose: 650 mg Acetaminophen/Butalbital/Caffeine (Butalb/Acetamin/Caff 50/325/40 Tablet) 1 tab PO BID PRN PRN Reason: Pain, Moderate(Pain Scale 4-6) Last Admin: 04/16/25 16:54 Dose: 1 tab Al Hydroxide/Mg Hydroxide (Magnesium Hydrox/Alum Hydrox 30 Ml Oral.Susp) 30 ml PO Q6H PRN PRN Reason: Heartburn/Nausea Alprazolam (Alprazolam 0.25 Mg Tablet) 0.25 mg PO BID PRN PRN Reason: agitation/anxiety Last Admin: 04/24/25 21:29 Dose: 0.25 mg Amlodipine Besylate (Amlodipine Besylate 5 Mg Tablet) 5 mg PO DAILY [facility]; Protocol Last Admin: 04/25/25 09:55 Dose: 5 mg Aripiprazole (Aripiprazole 15 Mg Tablet) 15 mg PO DAILY [facility] Last Admin: 04/25/25 09:55 Dose: 15 mg Aripiprazole (Aripiprazole 5 Mg Tablet) 5 mg PO DAILY@1600 ROGELIO Last Admin: 04/24/25 15:31 Dose: 5 mg Atorvastatin Calcium (Atorvastatin Calcium 80 Mg Tablet) 80 mg PO DAILY [facility] Last Admin: 08/25/25 09:56 Dose: 80 mg Donepezil HCl (Donepezil Hcl 5 Mg Tablet) 5 mg PO BEDTIME [facility]OGEL[facility] Last Admin: 04/24/25 21:29 Dose: 5 mg Magnesium Hydroxide (Milk Of Magnesia 30 Ml Oral.Susp) 30 ml PO DAILY PRN PRN Reason: Constipation Methimazole (Methimazole 10 Mg Tablet) 10 mg PO DAILY [facility]OGEL[facility] Mirtazapine (Mirtazapine 15 Mg Tablet) 15 mg PO BEDTIME [facility]OGELIO Last Admin: 04/24/25 21:29 Dose: 15 mg Nicotine Polacrilex (Nicotine Polacrilex 2 Mg Gum) 4 mg BUCCAL Q2H PRN PRN Reason: Nicotine Cravings Olanzapine (Olanzapine 5 Mg Tablet) 5 mg PO TID PRN PRN Reason: agitation Omeprazole (Omeprazole 20 Mg Capsule.Dr) 20 mg PO DAILY@0630 ROGELIO Last Admin: 04/25/25 06:27 Dose: 20 mg Spironolactone (Spironolactone 25 Mg Tablet) 25 mg PO DAILY [facility]; Protocol Last Admin: 04/25/25 09:56 Dose: 25 mg Trazodone HCl (Trazodone Hcl 25 Mg Halftab) 25 mg PO BEDTIME MRX1 PRN PRN Reason: Insomnia Last Admin: 04/24/25 21:29 Dose: 25 mg Trazodone HCl (Trazodone Hcl 25 Mg Halftab) 12.5 mg PO Q4H PRN PRN Reason: anxiety/agitation Allergies Allergies Allergy/AdvReac Type Severity Reaction Status Date / Time codeine Allergy Intermediate hives Verified 03/28/25 21:43 NSAIDS (Non-Steroidal AdvReac Severe gi bleed Verified 04/05/25 10:40 Anti-Inflamma Assessment & Plan Assessment & Plan (1) Graves disease: Status: Acute Code(s): E05.00 - Thyrotoxicosis with diffuse goiter without thyrotoxic crisis or storm Assessment and Plan: Pt is a 70-year-old female with a PMH significant for?HLD/CAD, NSTEMI 17 years ago, HTN, HFpEF, aniety, and depression who is admitted to [facility] for increasing depression with SI. Pt initially presented to [facility] for profound lethargy and inability to function at home. Workup was negative except for undetectable TSH but T3 and T4 WNL. While in the ED pt became agitated with multiple outbursts, including throwing coffee, kicking and screaming, and swearing at staff. Pt was not redirectable and required IM Zyprexa. Seen today for right ear pain, transaminitis. . Right otitis media. Augmentin 875 mgs BID for 5 days Improved HTN/CAD/HLD Continue amlodipine. Reports hx of NSTEMI 17 years ago No longer taking aspirin or Plavix, unclear if pt stopped taking on her own or at direction of cardiology Continue statin Asymptomatic bradycardia Metoprolol DC Graves disease Thyroid ultrasound without nodules but noted to be hypervascular TSI and TRAb elevated. Free T3 elevated, T4 normal Continue Methimazole 10 mgs daily Repeat labs in one week. Follow labs every 4 weeks. Will need endocrinology follow up. Abdominal pain/transaminitis Abdominal pain resolved If reoccurs we will order HIDA scan Patient reports a history of Hep C- Viral panel undetectable. Patient with a history of EtOH use Abdominal pain resolved. Liver tests reviewed with Dr. Mauro. No further intervention as abdominal pain resolved. Patient refused HIDA scan Hx of HFpEF Not in acute exacerbation Continue spironolactone Thank you for allowing me to participate in the care of this patient. We will continue to follow as needed. Please reconsult of any acute concerns or issues arise (2) MDD (major depressive disorder), recurrent episode, moderate: Status: Acute Code(s): F33.1 - Major depressive disorder, recurrent, moderate (3) Cognitive impairment: Status: Acute Code(s): R41.89 - Other symptoms and signs involving cognitive functions and awareness Plan Mrs. Martinez is a 70 year-old woman who was initially brought to [facility] due to weakness, profound lethargy and inability to care for herself. While in the ED, pt presented as agitated, combative and reported SI. Daughter reports pt has been struggling to care for herself (house without hot water, in condemnable condition and pt has not showered in several months). Pt is not able to recall events leading to this admission, despite the fact that she is oriented to month, year and place. We discussed risks, benefits and alternative treatment options. Will lower dose of xanax as pt this morning was more somnolent and lethargic although she had not received xanax. Lowered to 0.5mg po TID. continue effexor er 75mg po daily. Pt noted to have BP elevated but this was one point of care- will continue to monitor. No signs of benzo withdrawal. Pending MOCA/ACL. Will also check B12 (note that although no anemia, MCV was high). Repeat of CMP shows some degree of dehydration (elevated BUN from 14 to 23)- encourage fluids. PLAN 04/04 LFTs trending up, GI following, denies any abdominal pain, no vomiting, afebrile. pt confused as to why she is here, somewhat suspicious about her children wanting to leave her here. Will hold on starting medications until LFTs and bilirubin normalizes. Pending US of gallbladder today. 04/05 pt forgetful from day to day, confabulation with often seems more like blaming her children for doing things behind her back and thinks they are lying when music writer explains concern in terms of memory/cog impairments. 04/06 LFTs trending down. Will start abilify for mood/suspiciousness. 04/08 continue tx. 04/09: Continue current regimen and plans. Trial of Fioricet b.i.d. PRN 04/11 increase abilify for mood. reading of MRI with neuroquant- still pending. CAUTION WITH ACETAMINOPHEN AND LFTS. ALSO CAUTION WITH NSAID- not H&H down since admission. She was started on Tapazole 10mg po daily for graves disease- newly dx here. HIDA scan for abdominal pain not completed due to pt declining- may need to reorder if pt presents with abdominal pain or again LFTs elevation. 04/12: stable, demented. asking about discharge home when awaiting placement. MRI c neuroquant pending. stable presentation. continue current mgmt for now. 04/13: poor sleep due to disruptive peer. resting today. no request for discharge. no behavioral issues. continue current mgmt. 04/14: slept 5 hours. somewhat hypomanic today, circumstantial and moderately disorganized. agreeable to stay for the time being, per SW. increase abilify to 15 mg daily for mood stability. call placed to radiology for read on MRI brain done 04/05/25. 04/15: head MRI read remains absent. stable presentation. resting today, not activated or irritable. continue current mgmt. 04/16: stable presentation. remains a bit more organized and less labile than prior, since increase in abilify dosing. also a bit more tired. T/C moving abilify to HS to prevent daytime sedation. 04/17: lying in bed, calm. does not mention agitation around midnight last night. no complaints or requests. continue current mgmt. continues more organized and less labile. 04/18: MRI brain c/w AD and vascular dementia. start donepezil. remains less labile and irritable since abilify dosing increase. awaiting placement. continue current mgmt. 04/19: appears to be endorsing AH and expressing paranoia re staff today. increase abilify once again, this time with added dose in the evening. otherwise continue current mgmt. 04/20/25: Patient slept for 8 hours, was medication compliant. Denied side effects. However per nursing staff, patient was struggle with taking medication last night. She has sundown symptoms, more irritable in the afternoon and evening. During conversation with this provider, patient reports that she feel irritable but denies anxiety or depression. She said medications do not do anything good. Sucks being in here. Then she is more irritable when we asked about safety concern questions. it Is a bunch of bullshit, I am done talking . However she continued engaged in conversation when this provider review with her regarding Abilify scheduled time of the afternoon dose. She is working on menu at the same time. Per nursing, patient struggle with taking Abilify in the afternoon yesterday, after he she has sundown symptoms. Therefore I will change to 1600 so nursing staff can offer her at around 3 PM. Does not make any paranoid statements. 04/20: tired, resting in the morning. no paranoid delusions expressed. court paperwork completed for affirming HCP. continue current mgmt. 04/22: as for yesterday. reportedly c/o chills, shivering overnight, denies today. afebrile. continue current mgmt. 04/23: continue current tx 04/24: continue current tx 04/25: stable, continue current mgmt. Reason for continued inpatient stay Substantial Risk for: harm to self, inability to function and rapid decompensation Time Spent With Patient Time: Total time managing care of this patient today ____ minutes.
--- NOTE | 2025-04-25 12:15 | MHC.CLN ---
F/U DIET=REGULAR. ENSURE TID PROVIDES 1050 KCALS, 60 G PROTEIN. CONTINUES WITH VARIABLE PO INTAKE, 0-100%. CONTINUE TO FOLLOW FOR PO INTAKE.
[2025-04-25 14:30] VITALS: BP 152/74
[2025-04-25 20:00] VITALS: BP 90/60; PULSE 58; RESP 16; TEMP 36.8; O2SAT 95
[2025-04-25] MEDS: traZODone HCL 25 MG HALFTAB PO (21:03)
[2025-04-26 08:00] VITALS: BP 110/62; PULSE 51; RESP 16; TEMP 36.6; O2SAT 95
--- NOTE | 2025-04-26 11:07 | HO.PSYCHPN ---
Subjective Subjective Date of Service: 04/26/25 Reason For Visit: decompensation/ depression Interim History: in bed, appearing tired, resting but rousable. no complaints or requests. states she's just resting, not fatigued or feeling unwell. denies RAMRIES. per staff, eating well. taking meds. no issues. slept 8 hours. Mental Status Exam Mental Status Exam Narrative: In today's visit she is alert, pleasant. speech nml in rate and decr in amount. thoughts linear in brief interaction, no paranoid or delusional content broached. Good eye contact. Affect is appropriate and calm. No SI expressed. Judgment is impaired. Diagnostics Vital Signs (24Hr): Vital Signs - 24 hr 04/25/25 14:30 04/25/25 20:00 04/26/25 08:00 Temperature 98.3 F 97.9 F Pulse Rate 58 51 Respiratory Rate 16 16 Blood Pressure 152/74 H 90/60 110/62 Pulse Oximetry 95 95 Oxygen Delivery Method Room Air Room Air BMI result Body Mass Index 16.3 Labs 04/11/25 09:58 04/11/25 09:58 Imaging Radiology Impressions: ITS Impressions Thyroid Ultrasound 04/03/25 11:58 IMPRESSION: Heterogeneous hypervascular thyroid gland. No discrete nodules are identified. ACR TI-RADS Guidelines TR1 (0 points): Benign. No follow-up or biopsy required TR2 (2 points): Not Suspicious. No biopsy or follow up indicated TR3 (3 points): Mildly Suspicious. FNA if >= 2.5 cm, Follow if >= 1.5 cm TR4 (4-6 points): Moderately Suspicious. FNA if >= 1.5 cm, Follow if >= 1.0 cm TR5 (>=7 points): Highly Suspicious. FNA if >= 1.0 cm, Follow if >= 0.5 cm Electronically signed by: García Young MD 04/04/2025 07:08 AM EDT RP Abdomen X-Ray 04/05/25 11:25 IMPRESSION: No radiopaque foreign body is identified. Electronically signed by: García Young MD 04/05/2025 11:45 AM EDT RP Chest X-Ray 04/05/25 11:25 IMPRESSION: Clear lungs. No radiopaque foreign body is identified. Electronically signed by: García Young MD 04/05/2025 11:46 AM EDT RP Skull X-Ray 04/05/25 11:25 IMPRESSION: No radiopaque foreign body is identified. Electronically signed by: García Young MD 04/05/2025 11:47 AM EDT RP Brain MRI 04/05/25 11:38 IMPRESSION: 1. No evidence of intracranial hemorrhage, acute infarction, mass effect, or edema. 2. Age advanced cerebral and cerebellar volume loss. Please refer to the above, and the full neuroquantitative report included with the examination. 3. Moderate to severe changes of small vessel ischemia. 4. Crib d'etat appearance of the basal ganglia suggestive of sequela of chronic hypertension. Electronically signed by: Ruddy Moreau MD 04/18/2025 08:28 AM EDT RP Medications Medications Current Medications Acetaminophen (Acetaminophen 325 Mg Tablet) 650 mg PO Q6H PRN PRN Reason: Pain 1-10 or headache Last Admin: 04/25/25 08:00 Dose: 650 mg Acetaminophen/Butalbital/Caffeine (Butalb/Acetamin/Caff 50/325/40 Tablet) 1 tab PO BID PRN PRN Reason: Pain, Moderate(Pain Scale 4-6) Last Admin: 04/16/25 16:54 Dose: 1 tab Al Hydroxide/Mg Hydroxide (Magnesium Hydrox/Alum Hydrox 30 Ml Oral.Susp) 30 ml PO Q6H PRN PRN Reason: Heartburn/Nausea Alprazolam (Alprazolam 0.25 Mg Tablet) 0.25 mg PO BID PRN PRN Reason: agitation/anxiety Last Admin: 04/25/25 21:03 Dose: 0.25 mg Amlodipine Besylate (Amlodipine Besylate 5 Mg Tablet) 5 mg PO DAILY [facility]; Protocol Last Admin: 04/26/25 08:27 Dose: 5 mg Aripiprazole (Aripiprazole 15 Mg Tablet) 15 mg PO DAILY [facility] Last Admin: 04/26/25 08:27 Dose: 15 mg Aripiprazole (Aripiprazole 5 Mg Tablet) 5 mg PO DAILY@1600 [facility] Last Admin: 04/25/25 15:51 Dose: 5 mg Atorvastatin Calcium (Atorvastatin Calcium 80 Mg Tablet) 80 mg PO DAILY [facility] Last Admin: 04/26/25 08:27 Dose: 80 mg Donepezil HCl (Donepezil Hcl 5 Mg Tablet) 5 mg PO BEDTIME [facility] Last Admin: 04/25/25 21:03 Dose: 5 mg Magnesium Hydroxide (Milk Of Magnesia 30 Ml Oral.Susp) 30 ml PO DAILY PRN PRN Reason: Constipation Methimazole (Methimazole 10 Mg Tablet) 10 mg PO DAILY [facility] Last Admin: 04/26/25 08:27 Dose: 10 mg Mirtazapine (Mirtazapine 15 Mg Tablet) 15 mg PO BEDTIME [facility] Last Admin: 04/25/25 21:03 Dose: 15 mg Nicotine Polacrilex (Nicotine Polacrilex 2 Mg Gum) 4 mg BUCCAL Q2H PRN PRN Reason: Nicotine Cravings Olanzapine (Olanzapine 5 Mg Tablet) 5 mg PO TID PRN PRN Reason: agitation Omeprazole (Omeprazole 20 Mg Capsule.Dr) 20 mg PO DAILY@0630 [facility] Last Admin: 04/26/25 06:21 Dose: 20 mg Spironolactone (Spironolactone 25 Mg Tablet) 25 mg PO DAILY [facility]; Protocol Last Admin: 04/26/25 08:27 Dose: 25 mg Trazodone HCl (Trazodone Hcl 25 Mg Halftab) 25 mg PO BEDTIME MRX1 PRN PRN Reason: Insomnia Last Admin: 04/25/25 21:03 Dose: 25 mg Trazodone HCl (Trazodone Hcl 25 Mg Halftab) 12.5 mg PO Q4H PRN PRN Reason: anxiety/agitation Allergies Allergies Allergy/AdvReac Type Severity Reaction Status Date / Time codeine Allergy Intermediate hives Verified 03/28/25 21:43 NSAIDS (Non-Steroidal AdvReac Severe gi bleed Verified 04/05/25 10:40 Anti-Inflamma Assessment & Plan Assessment & Plan (1) Graves disease: Status: Acute Code(s): E05.00 - Thyrotoxicosis with diffuse goiter without thyrotoxic crisis or storm Assessment and Plan: Pt is a 70-year-old female with a PMH significant for?HLD/CAD, NSTEMI 17 years ago, HTN, HFpEF, aniety, and depression who is admitted to [facility] for increasing depression with SI. Pt initially presented to [facility] for profound lethargy and inability to function at home. Workup was negative except for undetectable TSH but T3 and T4 WNL. While in the ED pt became agitated with multiple outbursts, including throwing coffee, kicking and screaming, and swearing at staff. Pt was not redirectable and required IM Zyprexa. Seen today for right ear pain, transaminitis. . Right otitis media. Augmentin 875 mgs BID for 5 days Improved HTN/CAD/HLD Continue amlodipine. Reports hx of NSTEMI 17 years ago No longer taking aspirin or Plavix, unclear if pt stopped taking on her own or at direction of cardiology Continue statin Asymptomatic bradycardia Metoprolol DC Graves disease Thyroid ultrasound without nodules but noted to be hypervascular TSI and TRAb elevated. Free T3 elevated, T4 normal Continue Methimazole 10 mgs daily Repeat labs in one week. Follow labs every 4 weeks. Will need endocrinology follow up. Abdominal pain/transaminitis Abdominal pain resolved If reoccurs we will order HIDA scan Patient reports a history of Hep C- Viral panel undetectable. Patient with a history of EtOH use Abdominal pain resolved. Liver tests reviewed with Dr. Mauro. No further intervention as abdominal pain resolved. Patient refused HIDA scan Hx of HFpEF Not in acute exacerbation Continue spironolactone Thank you for allowing me to participate in the care of this patient. We will continue to follow as needed. Please reconsult of any acute concerns or issues arise (2) MDD (major depressive disorder), recurrent episode, moderate: Status: Acute Code(s): F33.1 - Major depressive disorder, recurrent, moderate (3) Cognitive impairment: Status: Acute Code(s): R41.89 - Other symptoms and signs involving cognitive functions and awareness Plan Mrs. Martinez is a 70 year-old woman who was initially brought to [facility] due to weakness, profound lethargy and inability to care for herself. While in the ED, pt presented as agitated, combative and reported SI. Daughter reports pt has been struggling to care for herself (house without hot water, in condemnable condition and pt has not showered in several months). Pt is not able to recall events leading to this admission, despite the fact that she is oriented to month, year and place. We discussed risks, benefits and alternative treatment options. Will lower dose of xanax as pt this morning was more somnolent and lethargic although she had not received xanax. Lowered to 0.5mg po TID. continue effexor er 75mg po daily. Pt noted to have BP elevated but this was one point of care- will continue to monitor. No signs of benzo withdrawal. Pending MOCA/ACL. Will also check B12 (note that although no anemia, MCV was high). Repeat of CMP shows some degree of dehydration (elevated BUN from 14 to 23)- encourage fluids. PLAN 04/04 LFTs trending up, GI following, denies any abdominal pain, no vomiting, afebrile. pt confused as to why she is here, somewhat suspicious about her children wanting to leave her here. Will hold on starting medications until LFTs and bilirubin normalizes. Pending US of gallbladder today. 04/05 pt forgetful from day to day, confabulation with often seems more like blaming her children for doing things behind her back and thinks they are lying when assembly instructions writer explains concern in terms of memory/cog impairments. 04/06 LFTs trending down. Will start abilify for mood/suspiciousness. 04/08 continue tx. 04/09: Continue current regimen and plans. Trial of Fioricet b.i.d. PRN 04/11 increase abilify for mood. reading of MRI with neuroquant- still pending. CAUTION WITH ACETAMINOPHEN AND LFTS. ALSO CAUTION WITH NSAID- not H&H down since admission. She was started on Tapazole 10mg po daily for graves disease- newly dx here. HIDA scan for abdominal pain not completed due to pt declining- may need to reorder if pt presents with abdominal pain or again LFTs elevation. 04/12: stable, demented. asking about discharge home when awaiting placement. MRI c neuroquant pending. stable presentation. continue current mgmt for now. 04/13: poor sleep due to disruptive peer. resting today. no request for discharge. no behavioral issues. continue current mgmt. 04/14: slept 5 hours. somewhat hypomanic today, circumstantial and moderately disorganized. agreeable to stay for the time being, per SW. increase abilify to 15 mg daily for mood stability. call placed to radiology for read on MRI brain done 04/05/25. 04/15: head MRI read remains absent. stable presentation. resting today, not activated or irritable. continue current mgmt. 04/16: stable presentation. remains a bit more organized and less labile than prior, since increase in abilify dosing. also a bit more tired. T/C moving abilify to HS to prevent daytime sedation. 04/17: lying in bed, calm. does not mention agitation around midnight last night. no complaints or requests. continue current mgmt. continues more organized and less labile. 04/18: MRI brain c/w AD and vascular dementia. start donepezil. remains less labile and irritable since abilify dosing increase. awaiting placement. continue current mgmt. 04/19: appears to be endorsing AH and expressing paranoia re staff today. increase abilify once again, this time with added dose in the evening. otherwise continue current mgmt. 04/20/25: Patient slept for 8 hours, was medication compliant. Denied side effects. However per nursing staff, patient was struggle with taking medication last night. She has sundown symptoms, more irritable in the afternoon and evening. During conversation with this provider, patient reports that she feel irritable but denies anxiety or depression. She said medications do not do anything good. Sucks being in here. Then she is more irritable when we asked about safety concern questions. it Is a bunch of bullshit, I am done talking . However she continued engaged in conversation when this provider review with her regarding Abilify scheduled time of the afternoon dose. She is working on menu at the same time. Per nursing, patient struggle with taking Abilify in the afternoon yesterday, after he she has sundown symptoms. Therefore I will change to 1600 so nursing staff can offer her at around 3 PM. Does not make any paranoid statements. 04/20: tired, resting in the morning. no paranoid delusions expressed. court paperwork completed for affirming HCP. continue current mgmt. 04/22: as for yesterday. reportedly c/o chills, shivering overnight, denies today. afebrile. continue current mgmt. 04/23: continue current tx 04/24: continue current tx 04/25: stable, continue current mgmt. 04/26: no change in presentation. HCP affirmation hearing tomorrow. continue current mgmt. Reason for continued inpatient stay Substantial Risk for: inability to function and rapid decompensation Time Spent With Patient Time: Total time managing care of this patient today ____ minutes.
[2025-04-26 20:00] VITALS: BP 86/60; PULSE 50; RESP 16; TEMP 36.4; O2SAT 97
[2025-04-26] MEDS: traZODone HCL 25 MG HALFTAB PO (21:20)
[2025-04-27 09:02] VITALS: BP 96/51; PULSE 56; RESP 14; TEMP 36.5; O2SAT 95
[2025-04-27 09:05] VITALS: BP 141/68
--- NOTE | 2025-04-27 10:52 | HO.PSYCHPN ---
Subjective Subjective Date of Service: 04/27/25 Reason For Visit: decompensation/ depression Interim History: resting in bed. no change in presentation. aware she is awaiting placement. per staff, isolative. 100% meals. irritable at times. reservoir engineering manager visited yesterday re affirmation of HCP hearing today. Mental Status Exam Mental Status Exam Narrative: In today's visit she is alert, pleasant. speech nml in rate and decr in amount. thoughts linear in brief interaction, no paranoid or delusional content broached. Good eye contact. Affect is appropriate and calm. No SI expressed. Judgment is impaired. Diagnostics Vital Signs (24Hr): Vital Signs - 24 hr 04/26/25 20:00 04/27/25 09:02 04/27/25 09:05 Temperature 97.6 F 97.7 F Pulse Rate 50 56 Respiratory Rate 16 14 Blood Pressure 86/60 L 96/51 L 141/68 H Pulse Oximetry 97 95 Oxygen Delivery Method Room Air Room Air BMI result Body Mass Index 16.3 Labs 04/11/25 09:58 04/11/25 09:58 Imaging Radiology Impressions: ITS Impressions Thyroid Ultrasound 04/03/25 11:58 IMPRESSION: Heterogeneous hypervascular thyroid gland. No discrete nodules are identified. ACR TI-RADS Guidelines TR1 (0 points): Benign. No follow-up or biopsy required TR2 (2 points): Not Suspicious. No biopsy or follow up indicated TR3 (3 points): Mildly Suspicious. FNA if >= 2.5 cm, Follow if >= 1.5 cm TR4 (4-6 points): Moderately Suspicious. FNA if >= 1.5 cm, Follow if >= 1.0 cm TR5 (>=7 points): Highly Suspicious. FNA if >= 1.0 cm, Follow if >= 0.5 cm Electronically signed by: García Young MD 04/04/2025 07:08 AM EDT RP Abdomen X-Ray 04/05/25 11:25 IMPRESSION: No radiopaque foreign body is identified. Electronically signed by: García Young MD 04/05/2025 11:45 AM EDT RP Chest X-Ray 04/05/25 11:25 IMPRESSION: Clear lungs. No radiopaque foreign body is identified. Electronically signed by: García Young MD 04/05/2025 11:46 AM EDT RP Skull X-Ray 04/05/25 11:25 IMPRESSION: No radiopaque foreign body is identified. Electronically signed by: García Young MD 04/05/2025 11:47 AM EDT RP Brain MRI 04/05/25 11:38 IMPRESSION: 1. No evidence of intracranial hemorrhage, acute infarction, mass effect, or edema. 2. Age advanced cerebral and cerebellar volume loss. Please refer to the above, and the full neuroquantitative report included with the examination. 3. Moderate to severe changes of small vessel ischemia. 4. Crib d'etat appearance of the basal ganglia suggestive of sequela of chronic hypertension. Electronically signed by: Ruddy Moreau MD 04/18/2025 08:28 AM EDT RP Medications Medications Current Medications Acetaminophen (Acetaminophen 325 Mg Tablet) 650 mg PO Q6H PRN PRN Reason: Pain 1-10 or headache Last Admin: 04/26/25 15:45 Dose: 650 mg Acetaminophen/Butalbital/Caffeine (Butalb/Acetamin/Caff 50/325/40 Tablet) 1 tab PO BID PRN PRN Reason: Pain, Moderate(Pain Scale 4-6) Last Admin: 04/16/25 16:54 Dose: 1 tab Al Hydroxide/Mg Hydroxide (Magnesium Hydrox/Alum Hydrox 30 Ml Oral.Susp) 30 ml PO Q6H PRN PRN Reason: Heartburn/Nausea Alprazolam (Alprazolam 0.25 Mg Tablet) 0.25 mg PO BID PRN PRN Reason: agitation/anxiety Last Admin: 04/26/25 21:19 Dose: 0.25 mg Amlodipine Besylate (Amlodipine Besylate 5 Mg Tablet) 5 mg PO DAILY [facility]; Protocol Last Admin: 04/27/25 09:07 Dose: 5 mg Aripiprazole (Aripiprazole 15 Mg Tablet) 15 mg PO DAILY [facility] Last Admin: 04/27/25 09:07 Dose: 15 mg Aripiprazole (Aripiprazole 5 Mg Tablet) 5 mg PO DAILY@1600 [facility] Last Admin: 04/26/25 15:09 Dose: 5 mg Atorvastatin Calcium (Atorvastatin Calcium 80 Mg Tablet) 80 mg PO DAILY [facility] Last Admin: 04/27/25 09:07 Dose: 80 mg Donepezil HCl (Donepezil Hcl 5 Mg Tablet) 5 mg PO BEDTIME [facility] Last Admin: 04/26/25 21:20 Dose: 5 mg Magnesium Hydroxide (Milk Of Magnesia 30 Ml Oral.Susp) 30 ml PO DAILY PRN PRN Reason: Constipation Methimazole (Methimazole 10 Mg Tablet) 10 mg PO DAILY [facility] Last Admin: 04/27/25 09:07 Dose: 10 mg Mirtazapine (Mirtazapine 15 Mg Tablet) 15 mg PO BEDTIME ROGELIO Last Admin: 04/26/25 21:20 Dose: 15 mg Nicotine Polacrilex (Nicotine Polacrilex 2 Mg Gum) 4 mg BUCCAL Q2H PRN PRN Reason: Nicotine Cravings Olanzapine (Olanzapine 5 Mg Tablet) 5 mg PO TID PRN PRN Reason: agitation Omeprazole (Omeprazole 20 Mg Capsule.Dr) 20 mg PO DAILY@0630 [facility] Last Admin: 04/27/25 06:25 Dose: 20 mg Spironolactone (Spironolactone 25 Mg Tablet) 25 mg PO DAILY [facility]; Protocol Last Admin: 04/27/25 09:07 Dose: 25 mg Trazodone HCl (Trazodone Hcl 25 Mg Halftab) 25 mg PO BEDTIME MRX1 PRN PRN Reason: Insomnia Last Admin: 04/26/25 21:20 Dose: 25 mg Trazodone HCl (Trazodone Hcl 25 Mg Halftab) 12.5 mg PO Q4H PRN PRN Reason: anxiety/agitation Allergies Allergies Allergy/AdvReac Type Severity Reaction Status Date / Time codeine Allergy Intermediate hives Verified 03/28/25 21:43 NSAIDS (Non-Steroidal AdvReac Severe gi bleed Verified 04/05/25 10:40 Anti-Inflamma Assessment & Plan Assessment & Plan (1) Graves disease: Status: Acute Code(s): E05.00 - Thyrotoxicosis with diffuse goiter without thyrotoxic crisis or storm Assessment and Plan: Pt is a 70-year-old female with a PMH significant for?HLD/CAD, NSTEMI 17 years ago, HTN, HFpEF, aniety, and depression who is admitted to [facility] for increasing depression with SI. Pt initially presented to [facility] for profound lethargy and inability to function at home. Workup was negative except for undetectable TSH but T3 and T4 WNL. While in the ED pt became agitated with multiple outbursts, including throwing coffee, kicking and screaming, and swearing at staff. Pt was not redirectable and required IM Zyprexa. Seen today for right ear pain, transaminitis. . Right otitis media. Augmentin 875 mgs BID for 5 days Improved HTN/CAD/HLD Continue amlodipine. Reports hx of NSTEMI 17 years ago No longer taking aspirin or Plavix, unclear if pt stopped taking on her own or at direction of cardiology Continue statin Asymptomatic bradycardia Metoprolol DC Graves disease Thyroid ultrasound without nodules but noted to be hypervascular TSI and TRAb elevated. Free T3 elevated, T4 normal Continue Methimazole 10 mgs daily Repeat labs in one week. Follow labs every 4 weeks. Will need endocrinology follow up. Abdominal pain/transaminitis Abdominal pain resolved If reoccurs we will order HIDA scan Patient reports a history of Hep C- Viral panel undetectable. Patient with a history of EtOH use Abdominal pain resolved. Liver tests reviewed with Dr. Mauro. No further intervention as abdominal pain resolved. Patient refused HIDA scan Hx of HFpEF Not in acute exacerbation Continue spironolactone Thank you for allowing me to participate in the care of this patient. We will continue to follow as needed. Please reconsult of any acute concerns or issues arise (2) MDD (major depressive disorder), recurrent episode, moderate: Status: Acute Code(s): F33.1 - Major depressive disorder, recurrent, moderate (3) Cognitive impairment: Status: Acute Code(s): R41.89 - Other symptoms and signs involving cognitive functions and awareness Plan Mrs. Martinez is a 70 year-old woman who was initially brought to [facility] due to weakness, profound lethargy and inability to care for herself. While in the ED, pt presented as agitated, combative and reported SI. Daughter reports pt has been struggling to care for herself (house without hot water, in condemnable condition and pt has not showered in several months). Pt is not able to recall events leading to this admission, despite the fact that she is oriented to month, year and place. We discussed risks, benefits and alternative treatment options. Will lower dose of xanax as pt this morning was more somnolent and lethargic although she had not received xanax. Lowered to 0.5mg po TID. continue effexor er 75mg po daily. Pt noted to have BP elevated but this was one point of care- will continue to monitor. No signs of benzo withdrawal. Pending MOCA/ACL. Will also check B12 (note that although no anemia, MCV was high). Repeat of CMP shows some degree of dehydration (elevated BUN from 14 to 23)- encourage fluids. PLAN 04/04 LFTs trending up, GI following, denies any abdominal pain, no vomiting, afebrile. pt confused as to why she is here, somewhat suspicious about her children wanting to leave her here. Will hold on starting medications until LFTs and bilirubin normalizes. Pending US of gallbladder today. 04/05 pt forgetful from day to day, confabulation with often seems more like blaming her children for doing things behind her back and thinks they are lying when production underwriter explains concern in terms of memory/cog impairments. 04/06 LFTs trending down. Will start abilify for mood/suspiciousness. 04/08 continue tx. 04/09: Continue current regimen and plans. Trial of Fioricet b.i.d. PRN 04/11 increase abilify for mood. reading of MRI with neuroquant- still pending. CAUTION WITH ACETAMINOPHEN AND LFTS. ALSO CAUTION WITH NSAID- not H&H down since admission. She was started on Tapazole 10mg po daily for graves disease- newly dx here. HIDA scan for abdominal pain not completed due to pt declining- may need to reorder if pt presents with abdominal pain or again LFTs elevation. 04/12: stable, demented. asking about discharge home when awaiting placement. MRI c neuroquant pending. stable presentation. continue current mgmt for now. 04/13: poor sleep due to disruptive peer. resting today. no request for discharge. no behavioral issues. continue current mgmt. 04/14: slept 5 hours. somewhat hypomanic today, circumstantial and moderately disorganized. agreeable to stay for the time being, per SW. increase abilify to 15 mg daily for mood stability. call placed to radiology for read on MRI brain done 04/05/25. 04/15: head MRI read remains absent. stable presentation. resting today, not activated or irritable. continue current mgmt. 04/16: stable presentation. remains a bit more organized and less labile than prior, since increase in abilify dosing. also a bit more tired. T/C moving abilify to HS to prevent daytime sedation. 04/17: lying in bed, calm. does not mention agitation around midnight last night. no complaints or requests. continue current mgmt. continues more organized and less labile. 04/18: MRI brain c/w AD and vascular dementia. start donepezil. remains less labile and irritable since abilify dosing increase. awaiting placement. continue current mgmt. 04/19: appears to be endorsing AH and expressing paranoia re staff today. increase abilify once again, this time with added dose in the evening. otherwise continue current mgmt. 04/20/25: Patient slept for 8 hours, was medication compliant. Denied side effects. However per nursing staff, patient was struggle with taking medication last night. She has sundown symptoms, more irritable in the afternoon and evening. During conversation with this provider, patient reports that she feel irritable but denies anxiety or depression. She said medications do not do anything good. Sucks being in here. Then she is more irritable when we asked about safety concern questions. it Is a bunch of bullshit, I am done talking . However she continued engaged in conversation when this provider review with her regarding Abilify scheduled time of the afternoon dose. She is working on menu at the same time. Per nursing, patient struggle with taking Abilify in the afternoon yesterday, after he she has sundown symptoms. Therefore I will change to 1600 so nursing staff can offer her at around 3 PM. Does not make any paranoid statements. 04/20: tired, resting in the morning. no paranoid delusions expressed. court paperwork completed for affirming HCP. continue current mgmt. 04/22: as for yesterday. reportedly c/o chills, shivering overnight, denies today. afebrile. continue current mgmt. 04/23: continue current tx 04/24: continue current tx 04/25: stable, continue current mgmt. 04/26: no change in presentation. HCP affirmation hearing tomorrow. continue current mgmt. 04/27: no change in presentation. HCP affirmation hearing today. continue current mgmt. Reason for continued inpatient stay Substantial Risk for: inability to function Time Spent With Patient Time: Total time managing care of this patient today ____ minutes.
[2025-04-27 21:13] VITALS: BP 146/67; PULSE 41; RESP 16; TEMP 36.3; O2SAT 95
[2025-04-28 09:44] VITALS: BP 117/56; PULSE 65; RESP 14; TEMP 36.3
--- NOTE | 2025-04-28 10:56 | P.PNPSI_ITS ---
Subjective Subjective Date of Service: 04/28/25 Reason For Visit: decompensation/ depression Subjective Notes: Conditional Voluntary Healthcare Proxy: Yes Interim History: Pt slept through the night. She thanks this singer songwriter for checking in with her. She is forgetful as to how long she has been here and why. She does know her house is in the market. She denies any physical concerns. She does have chronic migraines. managed so far with current medications. VS stable. Review of Systems Review of Systems Denied Yes all other systems are reviewed and are negative Mental Status Exam Mental Status Exam Narrative: Appearance: wearing hospital gown, thin, very poor hygiene, malodorous, in NAD Behavior: superficially cooperative Psychomotor: no agitation or retardation noted. no tremors. Speech: mostly clear, normal rate/rhythm/volume, spontaneous TP: tangential, at times circumstantial TC: wanting to go home Mood: good, thank you Affect: congruent SI: adamantly denies HI: denies VH/AH: no signs Delusions: no overt delusional content but noted confabulation. Insight/judgment: impaired x 2. memory/cog: alert, oriented to place, month and year but not to situation. Significant difficulty remembering events that led to this admission. MOCA Diagnostics Vital Signs (24Hr): Vital Signs - 24 hr 04/27/25 21:13 04/28/25 09:44 Temperature 97.4 F 97.3 F Pulse Rate 41 L 65 Respiratory Rate 16 14 Blood Pressure 146/67 H 117/56 L Pulse Oximetry 95 Oxygen Delivery Method Room Air Room Air BMI result Body Mass Index 16.3 Labs 04/11/25 09:58 04/11/25 09:58 Imaging Radiology Impressions: ITS Impressions Thyroid Ultrasound 04/03/25 11:58 IMPRESSION: Heterogeneous hypervascular thyroid gland. No discrete nodules are identified. ACR TI-RADS Guidelines TR1 (0 points): Benign. No follow-up or biopsy required TR2 (2 points): Not Suspicious. No biopsy or follow up indicated TR3 (3 points): Mildly Suspicious. FNA if >= 2.5 cm, Follow if >= 1.5 cm TR4 (4-6 points): Moderately Suspicious. FNA if >= 1.5 cm, Follow if >= 1.0 cm TR5 (>=7 points): Highly Suspicious. FNA if >= 1.0 cm, Follow if >= 0.5 cm Electronically signed by: Gacría Young MD 04/04/2025 07:08 AM EDT RP Abdomen X-Ray 04/05/25 11:25 IMPRESSION: No radiopaque foreign body is identified. Electronically signed by: García Young MD 04/05/2025 11:45 AM EDT RP Chest X-Ray 04/05/25 11:25 IMPRESSION: Clear lungs. No radiopaque foreign body is identified. Electronically signed by: García Young MD 04/05/2025 11:46 AM EDT RP Skull X-Ray 04/05/25 11:25 IMPRESSION: No radiopaque foreign body is identified. Electronically signed by: García Young MD 04/05/2025 11:47 AM EDT RP Brain MRI 04/05/25 11:38 IMPRESSION: 1. No evidence of intracranial hemorrhage, acute infarction, mass effect, or edema. 2. Age advanced cerebral and cerebellar volume loss. Please refer to the above, and the full neuroquantitative report included with the examination. 3. Moderate to severe changes of small vessel ischemia. 4. Crib d'etat appearance of the basal ganglia suggestive of sequela of chronic hypertension. Electronically signed by: Ruddy Moreau MD 04/18/2025 08:28 AM EDT RP Medications Medications Current Medications Acetaminophen (Acetaminophen 325 Mg Tablet) 650 mg PO Q6H PRN PRN Reason: Pain 1-10 or headache Last Admin: 04/28/25 10:10 Dose: 650 mg Acetaminophen/Butalbital/Caffeine (Butalb/Acetamin/Caff 50/325/40 Tablet) 1 tab PO BID PRN PRN Reason: Pain, Moderate(Pain Scale 4-6) Last Admin: 04/16/25 16:54 Dose: 1 tab Al Hydroxide/Mg Hydroxide (Magnesium Hydrox/Alum Hydrox 30 Ml Oral.Susp) 30 ml PO Q6H PRN PRN Reason: Heartburn/Nausea Alprazolam (Alprazolam 0.25 Mg Tablet) 0.25 mg PO BID PRN PRN Reason: agitation/anxiety Last Admin: 04/26/25 21:19 Dose: 0.25 mg Amlodipine Besylate (Amlodipine Besylate 5 Mg Tablet) 5 mg PO DAILY [facility]; Protocol Last Admin: 04/28/25 09:45 Dose: 5 mg Aripiprazole (Aripiprazole 15 Mg Tablet) 15 mg PO DAILY [facility] Last Admin: 04/28/25 09:45 Dose: 15 mg Aripiprazole (Aripiprazole 5 Mg Tablet) 5 mg PO DAILY@1600 [facility] Last Admin: 04/27/25 17:09 Dose: 5 mg Atorvastatin Calcium (Atorvastatin Calcium 80 Mg Tablet) 80 mg PO DAILY [facility] Last Admin: 04/28/25 09:45 Dose: 80 mg Donepezil HCl (Donepezil Hcl 5 Mg Tablet) 5 mg PO BEDTIME [facility] Last Admin: 04/27/25 21:18 Dose: Not Given Magnesium Hydroxide (Milk Of Magnesia 30 Ml Oral.Susp) 30 ml PO DAILY PRN PRN Reason: Constipation Methimazole (Methimazole 10 Mg Tablet) 10 mg PO DAILY [facility] Last Admin: 04/28/25 09:46 Dose: 10 mg Mirtazapine (Mirtazapine 15 Mg Tablet) 15 mg PO BEDTIME [facility] Last Admin: 04/27/25 21:17 Dose: 15 mg Nicotine Polacrilex (Nicotine Polacrilex 2 Mg Gum) 4 mg BUCCAL Q2H PRN PRN Reason: Nicotine Cravings Olanzapine (Olanzapine 5 Mg Tablet) 5 mg PO TID PRN PRN Reason: agitation Omeprazole (Omeprazole 20 Mg Capsule.Dr) 20 mg PO DAILY@0630 [facility] Last Admin: 04/28/25 05:37 Dose: 20 mg Spironolactone (Spironolactone 25 Mg Tablet) 25 mg PO DAILY [facility]; Protocol Last Admin: 04/28/25 09:45 Dose: 25 mg Trazodone HCl (Trazodone Hcl 25 Mg Halftab) 25 mg PO BEDTIME MRX1 PRN PRN Reason: Insomnia Last Admin: 04/26/25 21:20 Dose: 25 mg Trazodone HCl (Trazodone Hcl 25 Mg Halftab) 12.5 mg PO Q4H PRN PRN Reason: anxiety/agitation Allergies Allergies Allergy/AdvReac Type Severity Reaction Status Date / Time codeine Allergy Intermediate hives Verified 03/28/25 21:43 NSAIDS (Non-Steroidal AdvReac Severe gi bleed Verified 04/05/25 10:40 Anti-Inflamma Assessment & Plan Assessment & Plan (1) MDD (major depressive disorder), recurrent episode, moderate: Status: Acute Code(s): F33.1 - Major depressive disorder, recurrent, moderate (2) Major neurocognitive disorder, due to another medical condition, with behavioral disturbance, severe: Status: Acute Code(s): F02.C18 - Dementia in other diseases classified elsewhere, severe, with other behavioral disturbance (3) Graves disease: Status: Acute Code(s): E05.00 - Thyrotoxicosis with diffuse goiter without thyrotoxic crisis or storm Assessment and Plan: Pt is a 70-year-old female with a PMH significant for?HLD/CAD, NSTEMI 17 years ago, HTN, HFpEF, aniety, and depression who is admitted to [facility] for increasing depression with SI. Pt initially presented to [facility] for profound lethargy and inability to function at home. Workup was negative except for undetectable TSH but T3 and T4 WNL. While in the ED pt became agitated with multiple outbursts, including throwing coffee, kicking and screaming, and swearing at staff. Pt was not redirectable and required IM Zyprexa. Seen today for right ear pain, transaminitis. . Right otitis media. Augmentin 875 mgs BID for 5 days Improved HTN/CAD/HLD Continue amlodipine. Reports hx of NSTEMI 17 years ago No longer taking aspirin or Plavix, unclear if pt stopped taking on her own or at direction of cardiology Continue statin Asymptomatic bradycardia Metoprolol DC Graves disease Thyroid ultrasound without nodules but noted to be hypervascular TSI and TRAb elevated. Free T3 elevated, T4 normal Continue Methimazole 10 mgs daily Repeat labs in one week. Follow labs every 4 weeks. Will need endocrinology follow up. Abdominal pain/transaminitis Abdominal pain resolved If reoccurs we will order HIDA scan Patient reports a history of Hep C- Viral panel undetectable. Patient with a history of EtOH use Abdominal pain resolved. Liver tests reviewed with Dr. Mauro. No further intervention as abdominal pain resolved. Patient refused HIDA scan Hx of HFpEF Not in acute exacerbation Continue spironolactone Thank you for allowing me to participate in the care of this patient. We will continue to follow as needed. Please reconsult of any acute concerns or issues arise Plan Mrs. Martinez is a 70 year-old woman who was initially brought to [facility] due to weakness, profound lethargy and inability to care for herself. While in the ED, pt presented as agitated, combative and reported SI. Daughter reports pt has been struggling to care for herself (house without hot water, in condemnable condition and pt has not showered in several months). Pt is not able to recall events leading to this admission, despite the fact that she is oriented to month, year and place. We discussed risks, benefits and alternative treatment options. Will lower dose of xanax as pt this morning was more somnolent and lethargic although she had not received xanax. Lowered to 0.5mg po TID. continue effexor er 75mg po daily. Pt noted to have BP elevated but this was one point of care- will continue to monitor. No signs of benzo withdrawal. Pending MOCA/ACL. Will also check B12 (note that although no anemia, MCV was high). Repeat of CMP shows some degree of dehydration (elevated BUN from 14 to 23)- encourage fluids. PLAN 04/04 LFTs trending up, GI following, denies any abdominal pain, no vomiting, afebrile. pt confused as to why she is here, somewhat suspicious about her children wanting to leave her here. Will hold on starting medications until LFTs and bilirubin normalizes. Pending US of gallbladder today. 04/05 pt forgetful from day to day, confabulation with often seems more like blaming her children for doing things behind her back and thinks they are lying when singer songwriter explains concern in terms of memory/cog impairments. 04/06 LFTs trending down. Will start abilify for mood/suspiciousness. 04/08 continue tx. 04/09: Continue current regimen and plans. Trial of Fioricet b.i.d. PRN 04/11 increase abilify for mood. reading of MRI with neuroquant- still pending. CAUTION WITH ACETAMINOPHEN AND LFTS. ALSO CAUTION WITH NSAID- not H&H down since admission. She was started on Tapazole 10mg po daily for graves disease- newly dx here. HIDA scan for abdominal pain not completed due to pt declining- may need to reorder if pt presents with abdominal pain or again LFTs elevation. 04/12: stable, demented. asking about discharge home when awaiting placement. MRI c neuroquant pending. stable presentation. continue current mgmt for now. 04/13: poor sleep due to disruptive peer. resting today. no request for discharge. no behavioral issues. continue current mgmt. 04/14: slept 5 hours. somewhat hypomanic today, circumstantial and moderately disorganized. agreeable to stay for the time being, per SW. increase abilify to 15 mg daily for mood stability. call placed to radiology for read on MRI brain done 04/05/25. 04/15: head MRI read remains absent. stable presentation. resting today, not activated or irritable. continue current mgmt. 04/16: stable presentation. remains a bit more organized and less labile than prior, since increase in abilify dosing. also a bit more tired. T/C moving abilify to HS to prevent daytime sedation. 04/17: lying in bed, calm. does not mention agitation around midnight last night. no complaints or requests. continue current mgmt. continues more organized and less labile. 04/18: MRI brain c/w AD and vascular dementia. start donepezil. remains less labile and irritable since abilify dosing increase. awaiting placement. continue current mgmt. 04/19: appears to be endorsing AH and expressing paranoia re staff today. increase abilify once again, this time with added dose in the evening. otherwise continue current mgmt. 04/20/25: Patient slept for 8 hours, was medication compliant. Denied side effects. However per nursing staff, patient was struggle with taking medication last night. She has sundown symptoms, more irritable in the afternoon and evening. During conversation with this provider, patient reports that she feel irritable but denies anxiety or depression. She said medications do not do anything good. Sucks being in here. Then she is more irritable when we asked about safety concern questions. it Is a bunch of bullshit, I am done talking . However she continued engaged in conversation when this provider review with her regarding Abilify scheduled time of the afternoon dose. She is working on menu at the same time. Per nursing, patient struggle with taking Abilify in the afternoon yesterday, after he she has sundown symptoms. Therefore I will change to 1600 so nursing staff can offer her at around 3 PM. Does not make any paranoid statements. 04/20: tired, resting in the morning. no paranoid delusions expressed. court paperwork completed for affirming HCP. continue current mgmt. 04/22: as for yesterday. reportedly c/o chills, shivering overnight, denies today. afebrile. continue current mgmt. 04/23: continue current tx 04/24: continue current tx 04/25: stable, continue current mgmt. 04/26: no change in presentation. HCP affirmation hearing tomorrow. continue current mgmt. 04/27: no change in presentation. HCP affirmation hearing today. continue current mgmt. 04/28 continue current medications. Reason for continued inpatient stay Substantial Risk for: inability to function Time Spent With Patient Time: Total time managing care of this patient today ____ minutes.
[2025-04-28 11:02] VITALS: BMI 17.1
[2025-04-28 20:00] VITALS: BP 126/75; RESP 18; TEMP 36.4; O2SAT 97
[2025-04-29 09:07] VITALS: BP 187/86; PULSE 65; RESP 16; O2SAT 95
[2025-04-29 09:11] VITALS: BP 118/62; PULSE 73
--- NOTE | 2025-04-29 16:05 | P.PNPSI_ITS ---
Subjective Subjective Date of Service: 04/29/25 Reason For Visit: decompensation/ depression Subjective Notes: Conditional Voluntary Interim History: Pt slept through the night. She reports doing well, reports eating well as well. She denies any physical concerns. She seems more accepting of waiting here while she is placed. VS stable. taking meds. no side effects. Review of Systems Review of Systems Denied Yes all other systems are reviewed and are negative Mental Status Exam Mental Status Exam Narrative: Appearance: wearing hospital gown, thin, very poor hygiene, malodorous, in NAD Behavior: superficially cooperative Psychomotor: no agitation or retardation noted. no tremors. Speech: mostly clear, normal rate/rhythm/volume, spontaneous TP: tangential, at times circumstantial TC: wanting to go home Mood: good, thank you Affect: congruent SI: adamantly denies HI: denies VH/AH: no signs Delusions: no overt delusional content but noted confabulation. Insight/judgment: impaired x 2. memory/cog: alert, oriented to place, month and year but not to situation. Significant difficulty remembering events that led to this admission. MOCA Diagnostics Vital Signs (24Hr): Vital Signs - 24 hr 04/28/25 20:00 04/29/25 09:07 04/29/25 09:11 Temperature 97.5 F Pulse Rate 65 73 Respiratory Rate 18 16 Blood Pressure 126/75 187/86 H 118/62 Pulse Oximetry 97 95 Oxygen Delivery Method Room Air Room Air BMI result Body Mass Index 17.1 Labs 04/11/25 09:58 04/11/25 09:58 Imaging Radiology Impressions: ITS Impressions Thyroid Ultrasound 04/03/25 11:58 IMPRESSION: Heterogeneous hypervascular thyroid gland. No discrete nodules are identified. ACR TI-RADS Guidelines TR1 (0 points): Benign. No follow-up or biopsy required TR2 (2 points): Not Suspicious. No biopsy or follow up indicated TR3 (3 points): Mildly Suspicious. FNA if >= 2.5 cm, Follow if >= 1.5 cm TR4 (4-6 points): Moderately Suspicious. FNA if >= 1.5 cm, Follow if >= 1.0 cm TR5 (>=7 points): Highly Suspicious. FNA if >= 1.0 cm, Follow if >= 0.5 cm Electronically signed by: García Young MD 04/04/2025 07:08 AM EDT RP Abdomen X-Ray 04/05/25 11:25 IMPRESSION: No radiopaque foreign body is identified. Electronically signed by: García Young MD 04/05/2025 11:45 AM EDT RP Chest X-Ray 04/05/25 11:25 IMPRESSION: Clear lungs. No radiopaque foreign body is identified. Electronically signed by: García Young MD 04/05/2025 11:46 AM EDT RP Skull X-Ray 04/05/25 11:25 IMPRESSION: No radiopaque foreign body is identified. Electronically signed by: García Young MD 04/05/2025 11:47 AM EDT RP Brain MRI 04/05/25 11:38 IMPRESSION: 1. No evidence of intracranial hemorrhage, acute infarction, mass effect, or edema. 2. Age advanced cerebral and cerebellar volume loss. Please refer to the above, and the full neuroquantitative report included with the examination. 3. Moderate to severe changes of small vessel ischemia. 4. Crib d'etat appearance of the basal ganglia suggestive of sequela of chronic hypertension. Electronically signed by: Ruddy Moreau MD 04/18/2025 08:28 AM EDT RP Medications Medications Current Medications Acetaminophen (Acetaminophen 325 Mg Tablet) 650 mg PO Q6H PRN PRN Reason: Pain 1-10 or headache Last Admin: 04/28/25 10:10 Dose: 650 mg Acetaminophen/Butalbital/Caffeine (Butalb/Acetamin/Caff 50/325/40 Tablet) 1 tab PO BID PRN PRN Reason: Pain, Moderate(Pain Scale 4-6) Last Admin: 04/16/25 16:54 Dose: 1 tab Al Hydroxide/Mg Hydroxide (Magnesium Hydrox/Alum Hydrox 30 Ml Oral.Susp) 30 ml PO Q6H PRN PRN Reason: Heartburn/Nausea Alprazolam (Alprazolam 0.25 Mg Tablet) 0.25 mg PO BID PRN PRN Reason: agitation/anxiety Last Admin: 04/26/25 21:19 Dose: 0.25 mg Amlodipine Besylate (Amlodipine Besylate 5 Mg Tablet) 5 mg PO DAILY [facility]; Protocol Last Admin: 04/29/25 09:09 Dose: 5 mg Aripiprazole (Aripiprazole 15 Mg Tablet) 15 mg PO DAILY [facility] Last Admin: 04/29/25 09:13 Dose: 15 mg Aripiprazole (Aripiprazole 5 Mg Tablet) 5 mg PO DAILY@1600 [facility] Last Admin: 04/28/25 16:30 Dose: 5 mg Atorvastatin Calcium (Atorvastatin Calcium 80 Mg Tablet) 80 mg PO DAILY [facility] Last Admin: 04/29/25 09:08 Dose: 80 mg Donepezil HCl (Donepezil Hcl 5 Mg Tablet) 5 mg PO BEDTIME [facility] Last Admin: 04/28/25 22:59 Dose: Not Given Magnesium Hydroxide (Milk Of Magnesia 30 Ml Oral.Susp) 30 ml PO DAILY PRN PRN Reason: Constipation Methimazole (Methimazole 10 Mg Tablet) 10 mg PO DAILY [facility] Last Admin: 04/29/25 09:09 Dose: 10 mg Mirtazapine (Mirtazapine 15 Mg Tablet) 15 mg PO BEDTIME [facility] Last Admin: 04/28/25 22:59 Dose: 15 mg Nicotine Polacrilex (Nicotine Polacrilex 2 Mg Gum) 4 mg BUCCAL Q2H PRN PRN Reason: Nicotine Cravings Olanzapine (Olanzapine 5 Mg Tablet) 5 mg PO TID PRN PRN Reason: agitation Omeprazole (Omeprazole 20 Mg Capsule.Dr) 20 mg PO DAILY@0630 [facility] Last Admin: 04/29/25 05:36 Dose: 20 mg Spironolactone (Spironolactone 25 Mg Tablet) 25 mg PO DAILY [facility]; Protocol Last Admin: 04/29/25 09:09 Dose: 25 mg Trazodone HCl (Trazodone Hcl 25 Mg Halftab) 25 mg PO BEDTIME MRX1 PRN PRN Reason: Insomnia Last Admin: 04/26/25 21:20 Dose: 25 mg Trazodone HCl (Trazodone Hcl 25 Mg Halftab) 12.5 mg PO Q6H PRN PRN Reason: anxiety/agitation Allergies Allergies Allergy/AdvReac Type Severity Reaction Status Date / Time codeine Allergy Intermediate hives Verified 03/28/25 21:43 NSAIDS (Non-Steroidal AdvReac Severe gi bleed Verified 04/05/25 10:40 Anti-Inflamma Assessment & Plan Assessment & Plan (1) MDD (major depressive disorder), recurrent episode, moderate: Status: Acute Code(s): F33.1 - Major depressive disorder, recurrent, moderate (2) Major neurocognitive disorder, due to another medical condition, with behavioral disturbance, severe: Status: Acute Code(s): F02.C18 - Dementia in other diseases classified elsewhere, severe, with other behavioral disturbance (3) Graves disease: Status: Acute Code(s): E05.00 - Thyrotoxicosis with diffuse goiter without thyrotoxic crisis or storm Assessment and Plan: Pt is a 70-year-old female with a PMH significant for?HLD/CAD, NSTEMI 17 years ago, HTN, HFpEF, aniety, and depression who is admitted to [facility] for increasing depression with SI. Pt initially presented to [facility] for profound lethargy and inability to function at home. Workup was negative except for undetectable TSH but T3 and T4 WNL. While in the ED pt became agitated with multiple outbursts, including throwing coffee, kicking and screaming, and swearing at staff. Pt was not redirectable and required IM Zyprexa. Seen today for right ear pain, transaminitis. . Right otitis media. Augmentin 875 mgs BID for 5 days Improved HTN/CAD/HLD Continue amlodipine. Reports hx of NSTEMI 17 years ago No longer taking aspirin or Plavix, unclear if pt stopped taking on her own or at direction of cardiology Continue statin Asymptomatic bradycardia Metoprolol DC Graves disease Thyroid ultrasound without nodules but noted to be hypervascular TSI and TRAb elevated. Free T3 elevated, T4 normal Continue Methimazole 10 mgs daily Repeat labs in one week. Follow labs every 4 weeks. Will need endocrinology follow up. Abdominal pain/transaminitis Abdominal pain resolved If reoccurs we will order HIDA scan Patient reports a history of Hep C- Viral panel undetectable. Patient with a history of EtOH use Abdominal pain resolved. Liver tests reviewed with Dr. Mauro. No further intervention as abdominal pain resolved. Patient refused HIDA scan Hx of HFpEF Not in acute exacerbation Continue spironolactone Thank you for allowing me to participate in the care of this patient. We will continue to follow as needed. Please reconsult of any acute concerns or issues arise Plan Mrs. Martinez is a 70 year-old woman who was initially brought to [facility] due to weakness, profound lethargy and inability to care for herself. While in the ED, pt presented as agitated, combative and reported SI. Daughter reports pt has been struggling to care for herself (house without hot water, in condemnable condition and pt has not showered in several months). Pt is not able to recall events leading to this admission, despite the fact that she is oriented to month, year and place. We discussed risks, benefits and alternative treatment options. Will lower dose of xanax as pt this morning was more somnolent and lethargic although she had not received xanax. Lowered to 0.5mg po TID. continue effexor er 75mg po daily. Pt noted to have BP elevated but this was one point of care- will continue to monitor. No signs of benzo withdrawal. Pending MOCA/ACL. Will also check B12 (note that although no anemia, MCV was high). Repeat of CMP shows some degree of dehydration (elevated BUN from 14 to 23)- encourage fluids. PLAN 04/04 LFTs trending up, GI following, denies any abdominal pain, no vomiting, afebrile. pt confused as to why she is here, somewhat suspicious about her children wanting to leave her here. Will hold on starting medications until LFTs and bilirubin normalizes. Pending US of gallbladder today. 04/05 pt forgetful from day to day, confabulation with often seems more like blaming her children for doing things behind her back and thinks they are lying when marketing underwriter explains concern in terms of memory/cog impairments. 04/06 LFTs trending down. Will start abilify for mood/suspiciousness. 04/08 continue tx. 04/09: Continue current regimen and plans. Trial of Fioricet b.i.d. PRN 04/11 increase abilify for mood. reading of MRI with neuroquant- still pending. CAUTION WITH ACETAMINOPHEN AND LFTS. ALSO CAUTION WITH NSAID- not H&H down since admission. She was started on Tapazole 10mg po daily for graves disease- newly dx here. HIDA scan for abdominal pain not completed due to pt declining- may need to reorder if pt presents with abdominal pain or again LFTs elevation. 04/12: stable, demented. asking about discharge home when awaiting placement. MRI c neuroquant pending. stable presentation. continue current mgmt for now. 04/13: poor sleep due to disruptive peer. resting today. no request for discharge. no behavioral issues. continue current mgmt. 04/14: slept 5 hours. somewhat hypomanic today, circumstantial and moderately disorganized. agreeable to stay for the time being, per SW. increase abilify to 15 mg daily for mood stability. call placed to radiology for read on MRI brain done 04/05/25. 04/15: head MRI read remains absent. stable presentation. resting today, not activated or irritable. continue current mgmt. 04/16: stable presentation. remains a bit more organized and less labile than prior, since increase in abilify dosing. also a bit more tired. T/C moving abilify to HS to prevent daytime sedation. 04/17: lying in bed, calm. does not mention agitation around midnight last night. no complaints or requests. continue current mgmt. continues more organized and less labile. 04/18: MRI brain c/w AD and vascular dementia. start donepezil. remains less labile and irritable since abilify dosing increase. awaiting placement. continue current mgmt. 04/19: appears to be endorsing AH and expressing paranoia re staff today. increase abilify once again, this time with added dose in the evening. otherwise continue current mgmt. 04/20/25: Patient slept for 8 hours, was medication compliant. Denied side effects. However per nursing staff, patient was struggle with taking medication last night. She has sundown symptoms, more irritable in the afternoon and evening. During conversation with this provider, patient reports that she feel irritable but denies anxiety or depression. She said medications do not do anything good. Sucks being in here. Then she is more irritable when we asked about safety concern questions. it Is a bunch of bullshit, I am done talking . However she continued engaged in conversation when this provider review with her regarding Abilify scheduled time of the afternoon dose. She is working on menu at the same time. Per nursing, patient struggle with taking Abilify in the afternoon yesterday, after he she has sundown symptoms. Therefore I will change to 1600 so nursing staff can offer her at around 3 PM. Does not make any paranoid statements. 04/20: tired, resting in the morning. no paranoid delusions expressed. court paperwork completed for affirming HCP. continue current mgmt. 04/22: as for yesterday. reportedly c/o chills, shivering overnight, denies today. afebrile. continue current mgmt. 04/23: continue current tx 04/24: continue current tx 04/25: stable, continue current mgmt. 04/26: no change in presentation. HCP affirmation hearing tomorrow. continue current mgmt. 04/27: no change in presentation. HCP affirmation hearing today. continue current mgmt. 04/28 continue current medications. 04/29 continue tx. Reason for continued inpatient stay Substantial Risk for: inability to function Time Spent With Patient Time: Total time managing care of this patient today ____ minutes.
[2025-04-29 20:00] VITALS: BP 169/72; PULSE 56; RESP 16; TEMP 36.1; O2SAT 95
--- NOTE | 2025-04-30 09:09 | P.PNPSI_ITS ---
Subjective Subjective Date of Service: 04/30/25 Reason For Visit: decompensation/ depression Interim History: Seen in her room. Reports feeling tired but not depressed. Pt slept through the night. She reports doing well, reports eating well as well. She denies any physical concerns. VS stable. taking meds. no side effects. No SI/AVH. Cooperative with care. Review of Systems Review of Systems Denied Yes all other systems are reviewed and are negative Mental Status Exam Mental Status Exam Narrative: Appearance: wearing hospital gown, thin, very poor hygiene, malodorous, in NAD Behavior: superficially cooperative Psychomotor: no agitation or retardation noted. no tremors. Speech: mostly clear, normal rate/rhythm/volume, spontaneous TP: tangential, at times circumstantial TC: wanting to go home Mood: good, thank you Affect: congruent SI: adamantly denies HI: denies VH/AH: no signs Delusions: no overt delusional content but noted confabulation. Insight/judgment: impaired x 2. memory/cog: alert, oriented to place, month and year but not to situation. Significant difficulty remembering events that led to this admission. MOCA Patient Appearance: Appropriate Patient Orientation: Person Level of Consciousness: Alert Patient Behavior: Talkative and Cooperative Mood Description: Depressed and Cheerful Affect Description: Appropriate and Flat Patient Cognition Impaired: Yes Ability to Follow Directions: Fair Speech Pattern: Spontaneous Speech Memory Description: Remote Impaired Diagnostics Vital Signs (24Hr): Vital Signs - 24 hr 04/29/25 09:11 04/29/25 20:00 Temperature 97.0 F Pulse Rate 73 56 Respiratory Rate 16 Blood Pressure 118/62 169/72 H Pulse Oximetry 95 Oxygen Delivery Method Room Air BMI result Body Mass Index 17.1 Labs 04/11/25 09:58 04/11/25 09:58 Imaging Radiology Impressions: ITS Impressions Thyroid Ultrasound 04/03/25 11:58 IMPRESSION: Heterogeneous hypervascular thyroid gland. No discrete nodules are identified. ACR TI-RADS Guidelines TR1 (0 points): Benign. No follow-up or biopsy required TR2 (2 points): Not Suspicious. No biopsy or follow up indicated TR3 (3 points): Mildly Suspicious. FNA if >= 2.5 cm, Follow if >= 1.5 cm TR4 (4-6 points): Moderately Suspicious. FNA if >= 1.5 cm, Follow if >= 1.0 cm TR5 (>=7 points): Highly Suspicious. FNA if >= 1.0 cm, Follow if >= 0.5 cm Electronically signed by: García Young MD 04/04/2025 07:08 AM EDT RP Abdomen X-Ray 04/05/25 11:25 IMPRESSION: No radiopaque foreign body is identified. Electronically signed by: García Young MD 04/05/2025 11:45 AM EDT RP Chest X-Ray 04/05/25 11:25 IMPRESSION: Clear lungs. No radiopaque foreign body is identified. Electronically signed by: García Young MD 04/05/2025 11:46 AM EDT RP Skull X-Ray 04/05/25 11:25 IMPRESSION: No radiopaque foreign body is identified. Electronically signed by: García Young MD 04/05/2025 11:47 AM EDT RP Brain MRI 04/05/25 11:38 IMPRESSION: 1. No evidence of intracranial hemorrhage, acute infarction, mass effect, or edema. 2. Age advanced cerebral and cerebellar volume loss. Please refer to the above, and the full neuroquantitative report included with the examination. 3. Moderate to severe changes of small vessel ischemia. 4. Crib d'etat appearance of the basal ganglia suggestive of sequela of chronic hypertension. Electronically signed by: Ruddy Moreau MD 04/18/2025 08:28 AM EDT Medications Medications Current Medications Acetaminophen (Acetaminophen 325 Mg Tablet) 650 mg PO Q6H PRN PRN Reason: Pain 1-10 or headache Last Admin: 04/29/25 21:39 Dose: 650 mg Acetaminophen/Butalbital/Caffeine (Butalb/Acetamin/Caff 50/325/40 Tablet) 1 tab PO BID PRN PRN Reason: Pain, Moderate(Pain Scale 4-6) Last Admin: 04/16/25 16:54 Dose: 1 tab Al Hydroxide/Mg Hydroxide (Magnesium Hydrox/Alum Hydrox 30 Ml Oral.Susp) 30 ml PO Q6H PRN PRN Reason: Heartburn/Nausea Alprazolam (Alprazolam 0.25 Mg Tablet) 0.25 mg PO BID PRN PRN Reason: agitation/anxiety Last Admin: 04/26/25 21:19 Dose: 0.25 mg Amlodipine Besylate (Amlodipine Besylate 5 Mg Tablet) 5 mg PO DAILY [facility]; Protocol Last Admin: 04/29/25 09:09 Dose: 5 mg Aripiprazole (Aripiprazole 15 Mg Tablet) 15 mg PO DAILY [facility] Last Admin: 04/29/25 09:13 Dose: 15 mg Aripiprazole (Aripiprazole 5 Mg Tablet) 5 mg PO DAILY@1600 [facility] Last Admin: 04/29/25 16:22 Dose: 5 mg Atorvastatin Calcium (Atorvastatin Calcium 80 Mg Tablet) 80 mg PO DAILY [facility] Last Admin: 04/29/25 09:08 Dose: 80 mg Donepezil HCl (Donepezil Hcl 5 Mg Tablet) 5 mg PO BEDTIME [facility] Last Admin: 04/29/25 21:34 Dose: 5 mg Magnesium Hydroxide (Milk Of Magnesia 30 Ml Oral.Susp) 30 ml PO DAILY PRN PRN Reason: Constipation Methimazole (Methimazole 10 Mg Tablet) 10 mg PO DAILY [facility] Last Admin: 04/29/25 09:09 Dose: 10 mg Mirtazapine (Mirtazapine 15 Mg Tablet) 15 mg PO BEDTIME [facility] Last Admin: 04/29/25 21:34 Dose: 15 mg Nicotine Polacrilex (Nicotine Polacrilex 2 Mg Gum) 4 mg BUCCAL Q2H PRN PRN Reason: Nicotine Cravings Olanzapine (Olanzapine 5 Mg Tablet) 5 mg PO TID PRN PRN Reason: agitation Omeprazole (Omeprazole 20 Mg Capsule.Dr) 20 mg PO DAILY@0630 [facility] Last Admin: 04/30/25 06:21 Dose: 20 mg Spironolactone (Spironolactone 25 Mg Tablet) 25 mg PO DAILY [facility]; Protocol Last Admin: 04/29/25 09:09 Dose: 25 mg Trazodone HCl (Trazodone Hcl 25 Mg Halftab) 25 mg PO BEDTIME MRX1 PRN PRN Reason: Insomnia Last Admin: 04/26/25 21:20 Dose: 25 mg Trazodone HCl (Trazodone Hcl 25 Mg Halftab) 12.5 mg PO Q6H PRN PRN Reason: anxiety/agitation Allergies Allergies Allergy/AdvReac Type Severity Reaction Status Date / Time codeine Allergy Intermediate hives Verified 03/28/25 21:43 NSAIDS (Non-Steroidal AdvReac Severe gi bleed Verified 04/05/25 10:40 Anti-Inflamma Assessment & Plan Assessment & Plan (1) MDD (major depressive disorder), recurrent episode, moderate: Status: Acute Code(s): F33.1 - Major depressive disorder, recurrent, moderate (2) Major neurocognitive disorder, due to another medical condition, with behavioral disturbance, severe: Status: Acute Code(s): F02.C18 - Dementia in other diseases classified elsewhere, severe, with other behavioral disturbance (3) Graves disease: Status: Acute Code(s): E05.00 - Thyrotoxicosis with diffuse goiter without thyrotoxic crisis or storm Assessment and Plan: Pt is a 70-year-old female with a PMH significant for?HLD/CAD, NSTEMI 17 years ago, HTN, HFpEF, aniety, and depression who is admitted to [facility] for increasing depression with SI. Pt initially presented to [facility] for profound lethargy and inability to function at home. Workup was negative except for undetectable TSH but T3 and T4 WNL. While in the ED pt became agitated with multiple outbursts, including throwing coffee, kicking and screaming, and swearing at staff. Pt was not redirectable and required IM Zyprexa. Seen today for right ear pain, transaminitis. . Right otitis media. Augmentin 875 mgs BID for 5 days Improved HTN/CAD/HLD Continue amlodipine. Reports hx of NSTEMI 17 years ago No longer taking aspirin or Plavix, unclear if pt stopped taking on her own or at direction of cardiology Continue statin Asymptomatic bradycardia Metoprolol DC Graves disease Thyroid ultrasound without nodules but noted to be hypervascular TSI and TRAb elevated. Free T3 elevated, T4 normal Continue Methimazole 10 mgs daily Repeat labs in one week. Follow labs every 4 weeks. Will need endocrinology follow up. Abdominal pain/transaminitis Abdominal pain resolved If reoccurs we will order HIDA scan Patient reports a history of Hep C- Viral panel undetectable. Patient with a history of EtOH use Abdominal pain resolved. Liver tests reviewed with Dr. Mauro. No further intervention as abdominal pain resolved. Patient refused HIDA scan Hx of HFpEF Not in acute exacerbation Continue spironolactone Thank you for allowing me to participate in the care of this patient. We will continue to follow as needed. Please reconsult of any acute concerns or issues arise Plan Mrs. Martinez is a 70 year-old woman who was initially brought to [facility] due to weakness, profound lethargy and inability to care for herself. While in the ED, pt presented as agitated, combative and reported SI. Daughter reports pt has been struggling to care for herself (house without hot water, in condemnable condition and pt has not showered in several months). Pt is not able to recall events leading to this admission, despite the fact that she is oriented to month, year and place. We discussed risks, benefits and alternative treatment options. Will lower dose of xanax as pt this morning was more somnolent and lethargic although she had not received xanax. Lowered to 0.5mg po TID. continue effexor er 75mg po daily. Pt noted to have BP elevated but this was one point of care- will continue to monitor. No signs of benzo withdrawal. Pending MOCA/ACL. Will also check B12 (note that although no anemia, MCV was high). Repeat of CMP shows some degree of dehydration (elevated BUN from 14 to 23)- encourage fluids. PLAN 04/04 LFTs trending up, GI following, denies any abdominal pain, no vomiting, afebrile. pt confused as to why she is here, somewhat suspicious about her children wanting to leave her here. Will hold on starting medications until LFTs and bilirubin normalizes. Pending US of gallbladder today. 04/05 pt forgetful from day to day, confabulation with often seems more like blaming her children for doing things behind her back and thinks they are lying when song writer explains concern in terms of memory/cog impairments. 04/06 LFTs trending down. Will start abilify for mood/suspiciousness. 04/08 continue tx. 04/09: Continue current regimen and plans. Trial of Fioricet b.i.d. PRN 04/11 increase abilify for mood. reading of MRI with neuroquant- still pending. CAUTION WITH ACETAMINOPHEN AND LFTS. ALSO CAUTION WITH NSAID- not H&H down since admission. She was started on Tapazole 10mg po daily for graves disease- newly dx here. HIDA scan for abdominal pain not completed due to pt declining- may need to reorder if pt presents with abdominal pain or again LFTs elevation. 04/12: stable, demented. asking about discharge home when awaiting placement. MRI c neuroquant pending. stable presentation. continue current mgmt for now. 04/13: poor sleep due to disruptive peer. resting today. no request for discharge. no behavioral issues. continue current mgmt. 04/14: slept 5 hours. somewhat hypomanic today, circumstantial and moderately disorganized. agreeable to stay for the time being, per SW. increase abilify to 15 mg daily for mood stability. call placed to radiology for read on MRI brain done 04/05/25. 04/15: head MRI read remains absent. stable presentation. resting today, not activated or irritable. continue current mgmt. 04/16: stable presentation. remains a bit more organized and less labile than prior, since increase in abilify dosing. also a bit more tired. T/C moving abilify to HS to prevent daytime sedation. 04/17: lying in bed, calm. does not mention agitation around midnight last night. no complaints or requests. continue current mgmt. continues more organized and less labile. 04/18: MRI brain c/w AD and vascular dementia. start donepezil. remains less labile and irritable since abilify dosing increase. awaiting placement. continue current mgmt. 04/19: appears to be endorsing AH and expressing paranoia re staff today. increase abilify once again, this time with added dose in the evening. otherwise continue current mgmt. 04/20/25: Patient slept for 8 hours, was medication compliant. Denied side effects. However per nursing staff, patient was struggle with taking medication last night. She has sundown symptoms, more irritable in the afternoon and evening. During conversation with this provider, patient reports that she feel irritable but denies anxiety or depression. She said medications do not do anything good. Sucks being in here. Then she is more irritable when we asked about safety concern questions. it Is a bunch of bullshit, I am done talking . However she continued engaged in conversation when this provider review with her regarding Abilify scheduled time of the afternoon dose. She is working on menu at the same time. Per nursing, patient struggle with taking Abilify in the afternoon yesterday, after he she has own symptoms. Therefore I will change to 1600 so nursing staff can offer her at around 3 PM. Does not make any paranoid statements. 04/20: tired, resting in the morning. no paranoid delusions expressed. court paperwork completed for affirming HCP. continue current mgmt. 04/22: as for yesterday. reportedly c/o chills, shivering overnight, denies today. afebrile. continue current mgmt. 04/23: continue current tx 04/24: continue current tx 04/25: stable, continue current mgmt. 04/26: no change in presentation. HCP affirmation hearing tomorrow. continue current mgmt. 04/27: no change in presentation. HCP affirmation hearing today. continue current mgmt. 04/28 continue current medications. 04/29 continue tx. 04/30: continue current management and treatment plan. Reason for continued inpatient stay Substantial Risk for: inability to function, rapid decompensation and med/psych decompensation Time Spent With Patient Time: Total time managing care of this patient today ____ minutes.
[2025-04-30 09:25] VITALS: BP 103/63; PULSE 60; RESP 16; TEMP 36.3; O2SAT 96
[2025-04-30 09:28] VITALS: BP 167/74
[2025-04-30 20:00] VITALS: BP 160/69; PULSE 63; RESP 16; TEMP 36.3; O2SAT 96
--- NOTE | 2025-05-01 08:44 | P.PNPSI_ITS ---
Subjective Subjective Date of Service: 05/01/25 Reason For Visit: decompensation/ depression Interim History: Seen in her room. Reports feeling tired but not depressed. Visible on the unit. Pt slept through the night. She reports doing well, reports eating well. She denies any physical concerns. VS stable. taking meds. no side effects. No SI/AVH. Cooperative with care. Review of Systems Review of Systems Denied Yes all other systems are reviewed and are negative Mental Status Exam Mental Status Exam Narrative: Appearance: wearing hospital gown, thin, very poor hygiene, malodorous, in NAD Behavior: superficially cooperative Psychomotor: no agitation or retardation noted. no tremors. Speech: mostly clear, normal rate/rhythm/volume, spontaneous TP: tangential, at times circumstantial TC: wanting to go home Mood: good, thank you Affect: congruent SI: adamantly denies HI: denies VH/AH: no signs Delusions: no overt delusional content but noted confabulation. Insight/judgment: impaired x 2. memory/cog: alert, oriented to place, month and year but not to situation. Significant difficulty remembering events that led to this admission. MOCA Patient Appearance: Appropriate Patient Orientation: Person Level of Consciousness: Alert Patient Behavior: Talkative and Cooperative Mood Description: Depressed and Cheerful Affect Description: Appropriate and Flat Patient Cognition Impaired: Yes Ability to Follow Directions: Fair Speech Pattern: Spontaneous Speech Memory Description: Remote Impaired Diagnostics Vital Signs (24Hr): Vital Signs - 24 hr 04/30/25 09:25 04/30/25 09:28 04/30/25 20:00 Temperature 97.3 F 97.3 F Pulse Rate 60 63 Respiratory Rate 16 16 Blood Pressure 103/63 167/74 H 160/69 H Pulse Oximetry 96 96 Oxygen Delivery Method Room Air Room Air BMI result Body Mass Index 17.1 Labs 04/11/25 09:58 04/11/25 09:58 Imaging Radiology Impressions: ITS Impressions Thyroid Ultrasound 04/03/25 11:58 IMPRESSION: Heterogeneous hypervascular thyroid gland. No discrete nodules are identified. ACR TI-RADS Guidelines TR1 (0 points): Benign. No follow-up or biopsy required TR2 (2 points): Not Suspicious. No biopsy or follow up indicated TR3 (3 points): Mildly Suspicious. FNA if >= 2.5 cm, Follow if >= 1.5 cm TR4 (4-6 points): Moderately Suspicious. FNA if >= 1.5 cm, Follow if >= 1.0 cm TR5 (>=7 points): Highly Suspicious. FNA if >= 1.0 cm, Follow if >= 0.5 cm Electronically signed by: García Young MD 04/04/2025 07:08 AM EDT RP Abdomen X-Ray 04/05/25 11:25 IMPRESSION: No radiopaque foreign body is identified. Electronically signed by: García Young MD 04/05/2025 11:45 AM EDT RP Chest X-Ray 04/05/25 11:25 IMPRESSION: Clear lungs. No radiopaque foreign body is identified. Electronically signed by: García Young MD 04/05/2025 11:46 AM EDT RP Skull X-Ray 04/05/25 11:25 IMPRESSION: No radiopaque foreign body is identified. Electronically signed by: García Young MD 04/05/2025 11:47 AM EDT RP Brain MRI 04/05/25 11:38 IMPRESSION: 1. No evidence of intracranial hemorrhage, acute infarction, mass effect, or edema. 2. Age advanced cerebral and cerebellar volume loss. Please refer to the above, and the full neuroquantitative report included with the examination. 3. Moderate to severe changes of small vessel ischemia. 4. Crib d'etat appearance of the basal ganglia suggestive of sequela of chronic hypertension. Electronically signed by: Ruddy Moreau MD 04/18/2025 08:28 AM EDT RP Medications Medications Current Medications Acetaminophen (Acetaminophen 325 Mg Tablet) 650 mg PO Q6H PRN PRN Reason: Pain 1-10 or headache Last Admin: 04/30/25 09:40 Dose: 650 mg Acetaminophen/Butalbital/Caffeine (Butalb/Acetamin/Caff 50/325/40 Tablet) 1 tab PO BID PRN PRN Reason: Pain, Moderate(Pain Scale 4-6) Last Admin: 04/16/25 16:54 Dose: 1 tab Al Hydroxide/Mg Hydroxide (Magnesium Hydrox/Alum Hydrox 30 Ml Oral.Susp) 30 ml PO Q6H PRN PRN Reason: Heartburn/Nausea Alprazolam (Alprazolam 0.25 Mg Tablet) 0.25 mg PO BID PRN PRN Reason: agitation/anxiety Last Admin: 04/26/25 21:19 Dose: 0.25 mg Amlodipine Besylate (Amlodipine Besylate 5 Mg Tablet) 5 mg PO DAILY [facility]; Protocol Last Admin: 04/30/25 09:30 Dose: 5 mg Aripiprazole (Aripiprazole 15 Mg Tablet) 15 mg PO DAILY [facility] Last Admin: 04/30/25 09:30 Dose: 15 mg Aripiprazole (Aripiprazole 5 Mg Tablet) 5 mg PO DAILY@1600 [facility] Last Admin: 04/30/25 16:22 Dose: 5 mg Atorvastatin Calcium (Atorvastatin Calcium 80 Mg Tablet) 80 mg PO DAILY [facility] Last Admin: 04/30/25 09:29 Dose: 80 mg Donepezil HCl (Donepezil Hcl 5 Mg Tablet) 5 mg PO BEDTIME [facility] Last Admin: 04/30/25 20:23 Dose: 5 mg Magnesium Hydroxide (Milk Of Magnesia 30 Ml Oral.Susp) 30 ml PO DAILY PRN PRN Reason: Constipation Methimazole (Methimazole 10 Mg Tablet) 10 mg PO DAILY [facility] Last Admin: 04/30/25 09:29 Dose: 10 mg Mirtazapine (Mirtazapine 15 Mg Tablet) 15 mg PO BEDTIME [facility] Last Admin: 04/30/25 20:22 Dose: 15 mg Nicotine Polacrilex (Nicotine Polacrilex 2 Mg Gum) 4 mg BUCCAL Q2H PRN PRN Reason: Nicotine Cravings Olanzapine (Olanzapine 5 Mg Tablet) 5 mg PO TID PRN PRN Reason: agitation Omeprazole (Omeprazole 20 Mg Capsule.Dr) 20 mg PO DAILY@0630 [facility] Last Admin: 05/01/25 06:34 Dose: 20 mg Spironolactone (Spironolactone 25 Mg Tablet) 25 mg PO DAILY [facility]; Protocol Last Admin: 04/30/25 09:29 Dose: 25 mg Trazodone HCl (Trazodone Hcl 25 Mg Halftab) 25 mg PO BEDTIME MRX1 PRN PRN Reason: Insomnia Last Admin: 04/26/25 21:20 Dose: 25 mg Trazodone HCl (Trazodone Hcl 25 Mg Halftab) 12.5 mg PO Q6H PRN PRN Reason: anxiety/agitation Allergies Allergies Allergy/AdvReac Type Severity Reaction Status Date / Time codeine Allergy Intermediate hives Verified 03/28/25 21:43 NSAIDS (Non-Steroidal AdvReac Severe gi bleed Verified 04/05/25 10:40 Anti-Inflamma Assessment & Plan Assessment & Plan (1) MDD (major depressive disorder), recurrent episode, moderate: Status: Acute Code(s): F33.1 - Major depressive disorder, recurrent, moderate (2) Major neurocognitive disorder, due to another medical condition, with behavioral disturbance, severe: Status: Acute Code(s): F02.C18 - Dementia in other diseases classified elsewhere, severe, with other behavioral disturbance (3) Graves disease: Status: Acute Code(s): E05.00 - Thyrotoxicosis with diffuse goiter without thyrotoxic crisis or storm Assessment and Plan: Pt is a 70-year-old female with a PMH significant for?HLD/CAD, NSTEMI 17 years ago, HTN, HFpEF, aniety, and depression who is admitted to [facility] for increasing depression with SI. Pt initially presented to [facility] for profound lethargy and inability to function at home. Workup was negative except for undetectable TSH but T3 and T4 WNL. While in the ED pt became agitated with multiple outbursts, including throwing coffee, kicking and screaming, and swearing at staff. Pt was not redirectable and required IM Zyprexa. Seen today for right ear pain, transaminitis. . Right otitis media. Augmentin 875 mgs BID for 5 days Improved HTN/CAD/HLD Continue amlodipine. Reports hx of NSTEMI 17 years ago No longer taking aspirin or Plavix, unclear if pt stopped taking on her own or at direction of cardiology Continue statin Asymptomatic bradycardia Metoprolol DC Graves disease Thyroid ultrasound without nodules but noted to be hypervascular TSI and TRAb elevated. Free T3 elevated, T4 normal Continue Methimazole 10 mgs daily Repeat labs in one week. Follow labs every 4 weeks. Will need endocrinology follow up. Abdominal pain/transaminitis Abdominal pain resolved If reoccurs we will order HIDA scan Patient reports a history of Hep C- Viral panel undetectable. Patient with a history of EtOH use Abdominal pain resolved. Liver tests reviewed with Dr. Mauro. No further intervention as abdominal pain resolved. Patient refused HIDA scan Hx of HFpEF Not in acute exacerbation Continue spironolactone Thank you for allowing me to participate in the care of this patient. We will continue to follow as needed. Please reconsult of any acute concerns or issues arise Plan Mrs. Martinez is a 70 year-old woman who was initially brought to [facility] due to weakness, profound lethargy and inability to care for herself. While in the ED, pt presented as agitated, combative and reported SI. Daughter reports pt has been struggling to care for herself (house without hot water, in condemnable condition and pt has not showered in several months). Pt is not able to recall events leading to this admission, despite the fact that she is oriented to month, year and place. We discussed risks, benefits and alternative treatment options. Will lower dose of xanax as pt this morning was more somnolent and lethargic although she had not received xanax. Lowered to 0.5mg po TID. continue effexor er 75mg po daily. Pt noted to have BP elevated but this was one point of care- will continue to monitor. No signs of benzo withdrawal. Pending MOCA/ACL. Will also check B12 (note that although no anemia, MCV was high). Repeat of CMP shows some degree of dehydration (elevated BUN from 14 to 23)- encourage fluids. PLAN 04/04 LFTs trending up, GI following, denies any abdominal pain, no vomiting, afebrile. pt confused as to why she is here, somewhat suspicious about her children wanting to leave her here. Will hold on starting medications until LFTs and bilirubin normalizes. Pending US of gallbladder today. 04/05 pt forgetful from day to day, confabulation with often seems more like blaming her children for doing things behind her back and thinks they are lying when policy writer typist explains concern in terms of memory/cog impairments. 04/06 LFTs trending down. Will start abilify for mood/suspiciousness. 04/08 continue tx. 04/09: Continue current regimen and plans. Trial of Fioricet b.i.d. PRN 04/11 increase abilify for mood. reading of MRI with neuroquant- still pending. CAUTION WITH ACETAMINOPHEN AND LFTS. ALSO CAUTION WITH NSAID- not H&H down since admission. She was started on Tapazole 10mg po daily for graves disease- newly dx here. HIDA scan for abdominal pain not completed due to pt declining- may need to reorder if pt presents with abdominal pain or again LFTs elevation. 04/12: stable, demented. asking about discharge home when awaiting placement. MRI c neuroquant pending. stable presentation. continue current mgmt for now. 04/13: poor sleep due to disruptive peer. resting today. no request for discharge. no behavioral issues. continue current mgmt. 04/14: slept 5 hours. somewhat hypomanic today, circumstantial and moderately disorganized. agreeable to stay for the time being, per SW. increase abilify to 15 mg daily for mood stability. call placed to radiology for read on MRI brain done 04/05/25. 04/15: head MRI read remains absent. stable presentation. resting today, not activated or irritable. continue current mgmt. 04/16: stable presentation. remains a bit more organized and less labile than prior, since increase in abilify dosing. also a bit more tired. T/C moving abilify to HS to prevent daytime sedation. 04/17: lying in bed, calm. does not mention agitation around midnight last night. no complaints or requests. continue current mgmt. continues more organized and less labile. 04/18: MRI brain c/w AD and vascular dementia. start donepezil. remains less labile and irritable since abilify dosing increase. awaiting placement. continue current mgmt. 04/19: appears to be endorsing AH and expressing paranoia re staff today. increase abilify once again, this time with added dose in the evening. otherwise continue current mgmt. 04/20/25: Patient slept for 8 hours, was medication compliant. Denied side effects. However per nursing staff, patient was struggle with taking medication last night. She has sundown symptoms, more irritable in the afternoon and evening. During conversation with this provider, patient reports that she feel irritable but denies anxiety or depression. She said medications do not do anything good. Sucks being in here. Then she is more irritable when we asked about safety concern questions. it Is a bunch of bullshit, I am done talking . However she continued engaged in conversation when this provider review with her regarding Abilify scheduled time of the afternoon dose. She is working on menu at the same time. Per nursing, patient struggle with taking Abilify in the afternoon yesterday, after he she has sundown symptoms. Therefore I will change to 1600 so nursing staff can offer her at around 3 PM. Does not make any paranoid statements. 04/20: tired, resting in the morning. no paranoid delusions expressed. court paperwork completed for affirming HCP. continue current mgmt. 04/22: as for yesterday. reportedly c/o chills, shivering overnight, denies today. afebrile. continue current mgmt. 04/23: continue current tx 04/24: continue current tx 04/25: stable, continue current mgmt. 04/26: no change in presentation. HCP affirmation hearing tomorrow. continue current mgmt. 04/27: no change in presentation. HCP affirmation hearing today. continue current mgmt. 04/28 continue current medications. 04/29 continue tx. 04/30: continue current management and treatment plan. 05/01: continue current management and treatment plan. Reason for continued inpatient stay Substantial Risk for: inability to function and rapid decompensation Time Spent With Patient Time: Total time managing care of this patient today ____ minutes.
[2025-05-01 09:09] VITALS: BP 108/82; PULSE 42; RESP 14; TEMP 36.5; O2SAT 96
[2025-05-01 20:00] VITALS: BP 100/60; PULSE 50; RESP 16; TEMP 36.4; O2SAT 97
[2025-05-02 08:00] VITALS: BP 133/81; PULSE 41; RESP 14; TEMP 36.4; O2SAT 96
[2025-05-02 08:47] VITALS: BP 133/81
[2025-05-02 08:48] VITALS: BP 133/81
--- NOTE | 2025-05-02 11:55 | HO.PSYCHPN ---
Subjective Subjective Date of Service: 05/02/25 Reason For Visit: decompensation/ depression Interim History: Seen in her room. Feels irritated because she lost her glasses and that I am blind without them. She and the staff looked for it all over the unit. She says she is from [place] and it would be difficult for her family to get the glasses. Reports feeling tired but not depressed. Pt slept through the night. Otherwise reports doing well, reports eating well. She denies any physical concerns. VS stable. taking meds. no side effects. No SI/AVH. Cooperative with care. Review of Systems Review of Systems Denied Yes all other systems are reviewed and are negative Mental Status Exam Mental Status Exam Narrative: Appearance: wearing hospital gown, thin, very poor hygiene, malodorous, in NAD Behavior: superficially cooperative Psychomotor: no agitation or retardation noted. no tremors. Speech: mostly clear, normal rate/rhythm/volume, spontaneous TP: tangential, at times circumstantial TC: wanting to go home Mood: good, thank you Affect: congruent SI: adamantly denies HI: denies VH/AH: no signs Delusions: no overt delusional content but noted confabulation. Insight/judgment: impaired x 2. memory/cog: alert, oriented to place, month and year but not to situation. Significant difficulty remembering events that led to this admission. MOCA Patient Appearance: Appropriate Patient Orientation: Person Level of Consciousness: Alert Patient Behavior: Talkative and Cooperative Mood Description: Depressed and Cheerful Affect Description: Appropriate and Flat Patient Cognition Impaired: Yes Ability to Follow Directions: Fair Speech Pattern: Spontaneous Speech Memory Description: Remote Impaired Diagnostics Vital Signs (24Hr): Vital Signs - 24 hr 05/01/25 20:00 05/02/25 08:00 05/02/25 08:47 Temperature 97.6 F 97.5 F Pulse Rate 50 41 L Respiratory Rate 16 14 Blood Pressure 100/60 133/81 133/81 Pulse Oximetry 97 96 Oxygen Delivery Method Room Air Room Air 05/02/25 08:48 Temperature Pulse Rate Respiratory Rate Blood Pressure 133/81 Pulse Oximetry Oxygen Delivery Method BMI result Body Mass Index 17.1 Labs 04/11/25 09:58 04/11/25 09:58 Imaging Radiology Impressions: ITS Impressions Thyroid Ultrasound 04/03/25 11:58 IMPRESSION: Heterogeneous hypervascular thyroid gland. No discrete nodules are identified. ACR TI-RADS Guidelines TR1 (0 points): Benign. No follow-up or biopsy required TR2 (2 points): Not Suspicious. No biopsy or follow up indicated TR3 (3 points): Mildly Suspicious. FNA if >= 2.5 cm, Follow if >= 1.5 cm TR4 (4-6 points): Moderately Suspicious. FNA if >= 1.5 cm, Follow if >= 1.0 cm TR5 (>=7 points): Highly Suspicious. FNA if >= 1.0 cm, Follow if >= 0.5 cm Electronically signed by: García Young MD 04/04/2025 07:08 AM EDT RP Abdomen X-Ray 04/05/25 11:25 IMPRESSION: No radiopaque foreign body is identified. Electronically signed by: García Young MD 04/05/2025 11:45 AM EDT RP Chest X-Ray 04/05/25 11:25 IMPRESSION: Clear lungs. No radiopaque foreign body is identified. Electronically signed by: García Young MD 04/05/2025 11:46 AM EDT RP Skull X-Ray 04/05/25 11:25 IMPRESSION: No radiopaque foreign body is identified. Electronically signed by: García Young MD 04/05/2025 11:47 AM EDT RP Brain MRI 04/05/25 11:38 IMPRESSION: 1. No evidence of intracranial hemorrhage, acute infarction, mass effect, or edema. 2. Age advanced cerebral and cerebellar volume loss. Please refer to the above, and the full neuroquantitative report included with the examination. 3. Moderate to severe changes of small vessel ischemia. 4. Crib d'etat appearance of the basal ganglia suggestive of sequela of chronic hypertension. Electronically signed by: Ruddy Moreau MD 04/18/2025 08:28 AM EDT RP Medications Medications Current Medications Acetaminophen (Acetaminophen 325 Mg Tablet) 650 mg PO Q6H PRN PRN Reason: Pain 1-10 or headache Last Admin: 05/01/25 16:04 Dose: 650 mg Acetaminophen/Butalbital/Caffeine (Butalb/Acetamin/Caff 50/325/40 Tablet) 1 tab PO BID PRN PRN Reason: Pain, Moderate(Pain Scale 4-6) Last Admin: 04/16/25 16:54 Dose: 1 tab Al Hydroxide/Mg Hydroxide (Magnesium Hydrox/Alum Hydrox 30 Ml Oral.Susp) 30 ml PO Q6H PRN PRN Reason: Heartburn/Nausea Alprazolam (Alprazolam 0.25 Mg Tablet) 0.25 mg PO BID PRN PRN Reason: agitation/anxiety Last Admin: 05/02/25 09:54 Dose: 0.25 mg Amlodipine Besylate (Amlodipine Besylate 5 Mg Tablet) 5 mg PO DAILY [facility]; Protocol Last Admin: 05/02/25 08:47 Dose: 5 mg Aripiprazole (Aripiprazole 15 Mg Tablet) 15 mg PO DAILY [facility] Last Admin: 05/02/25 08:48 Dose: 15 mg Aripiprazole (Aripiprazole 5 Mg Tablet) 5 mg PO DAILY@1600 [facility] Last Admin: 05/01/25 16:05 Dose: 5 mg Atorvastatin Calcium (Atorvastatin Calcium 80 Mg Tablet) 80 mg PO DAILY [facility] Last Admin: 05/02/25 08:47 Dose: 80 mg Donepezil HCl (Donepezil Hcl 5 Mg Tablet) 5 mg PO BEDTIME [facility] Last Admin: 05/01/25 20:53 Dose: 5 mg Magnesium Hydroxide (Milk Of Magnesia 30 Ml Oral.Susp) 30 ml PO DAILY PRN PRN Reason: Constipation Methimazole (Methimazole 10 Mg Tablet) 10 mg PO DAILY [facility] Last Admin: 05/02/25 08:47 Dose: 10 mg Mirtazapine (Mirtazapine 15 Mg Tablet) 15 mg PO BEDTIME [facility] Last Admin: 05/01/25 20:53 Dose: 15 mg Nicotine Polacrilex (Nicotine Polacrilex 2 Mg Gum) 4 mg BUCCAL Q2H PRN PRN Reason: Nicotine Cravings Olanzapine (Olanzapine 5 Mg Tablet) 5 mg PO TID PRN PRN Reason: agitation Omeprazole (Omeprazole 20 Mg Capsule.Dr) 20 mg PO DAILY@0630 [facility] Last Admin: 05/02/25 06:19 Dose: 20 mg Spironolactone (Spironolactone 25 Mg Tablet) 25 mg PO DAILY [facility]; Protocol Last Admin: 05/02/25 08:48 Dose: 25 mg Trazodone HCl (Trazodone Hcl 25 Mg Halftab) 25 mg PO BEDTIME MRX1 PRN PRN Reason: Insomnia Last Admin: 04/26/25 21:20 Dose: 25 mg Trazodone HCl (Trazodone Hcl 25 Mg Halftab) 12.5 mg PO Q6H PRN PRN Reason: anxiety/agitation Allergies Allergies Allergy/AdvReac Type Severity Reaction Status Date / Time codeine Allergy Intermediate hives Verified 03/28/25 21:43 NSAIDS (Non-Steroidal AdvReac Severe gi bleed Verified 04/05/25 10:40 Anti-Inflamma Assessment & Plan Assessment & Plan (1) MDD (major depressive disorder), recurrent episode, moderate: Status: Acute Code(s): F33.1 - Major depressive disorder, recurrent, moderate (2) Major neurocognitive disorder, due to another medical condition, with behavioral disturbance, severe: Status: Acute Code(s): F02.C18 - Dementia in other diseases classified elsewhere, severe, with other behavioral disturbance (3) Graves disease: Status: Acute Code(s): E05.00 - Thyrotoxicosis with diffuse goiter without thyrotoxic crisis or storm Assessment and Plan: Pt is a 70-year-old female with a PMH significant for?HLD/CAD, NSTEMI 17 years ago, HTN, HFpEF, aniety, and depression who is admitted to [facility] for increasing depression with SI. Pt initially presented to [facility] for profound lethargy and inability to function at home. Workup was negative except for undetectable TSH but T3 and T4 WNL. While in the ED pt became agitated with multiple outbursts, including throwing coffee, kicking and screaming, and swearing at staff. Pt was not redirectable and required IM Zyprexa. Seen today for right ear pain, transaminitis. . Right otitis media. Augmentin 875 mgs BID for 5 days Improved HTN/CAD/HLD Continue amlodipine. Reports hx of NSTEMI 17 years ago No longer taking aspirin or Plavix, unclear if pt stopped taking on her own or at direction of cardiology Continue statin Asymptomatic bradycardia Metoprolol DC Graves disease Thyroid ultrasound without nodules but noted to be hypervascular TSI and TRAb elevated. Free T3 elevated, T4 normal Continue Methimazole 10 mgs daily Repeat labs in one week. Follow labs every 4 weeks. Will need endocrinology follow up. Abdominal pain/transaminitis Abdominal pain resolved If reoccurs we will order HIDA scan Patient reports a history of Hep C- Viral panel undetectable. Patient with a history of EtOH use Abdominal pain resolved. Liver tests reviewed with Dr. Mauro. No further intervention as abdominal pain resolved. Patient refused HIDA scan Hx of HFpEF Not in acute exacerbation Continue spironolactone Thank you for allowing me to participate in the care of this patient. We will continue to follow as needed. Please reconsult of any acute concerns or issues arise Plan Mrs. Martinez is a 70 year-old woman who was initially brought to [facility] due to weakness, profound lethargy and inability to care for herself. While in the ED, pt presented as agitated, combative and reported SI. Daughter reports pt has been struggling to care for herself (house without hot water, in condemnable condition and pt has not showered in several months). Pt is not able to recall events leading to this admission, despite the fact that she is oriented to month, year and place. We discussed risks, benefits and alternative treatment options. Will lower dose of xanax as pt this morning was more somnolent and lethargic although she had not received xanax. Lowered to 0.5mg po TID. continue effexor er 75mg po daily. Pt noted to have BP elevated but this was one point of care- will continue to monitor. No signs of benzo withdrawal. Pending MOCA/ACL. Will also check B12 (note that although no anemia, MCV was high). Repeat of CMP shows some degree of dehydration (elevated BUN from 14 to 23)- encourage fluids. PLAN 04/04 LFTs trending up, GI following, denies any abdominal pain, no vomiting, afebrile. pt confused as to why she is here, somewhat suspicious about her children wanting to leave her here. Will hold on starting medications until LFTs and bilirubin normalizes. Pending US of gallbladder today. 04/05 pt forgetful from day to day, confabulation with often seems more like blaming her children for doing things behind her back and thinks they are lying when field underwriter explains concern in terms of memory/cog impairments. 8/6 LFTs trending down. Will start abilify for mood/suspiciousness. 04/08 continue tx. 04/09: Continue current regimen and plans. Trial of Fioricet b.i.d. PRN 04/11 increase abilify for mood. reading of MRI with neuroquant- still pending. CAUTION WITH ACETAMINOPHEN AND LFTS. ALSO CAUTION WITH NSAID- not H&H down since admission. She was started on Tapazole 10mg po daily for graves disease- newly dx here. HIDA scan for abdominal pain not completed due to pt declining- may need to reorder if pt presents with abdominal pain or again LFTs elevation. 04/12: stable, demented. asking about discharge home when awaiting placement. MRI c neuroquant pending. stable presentation. continue current mgmt for now. 04/13: poor sleep due to disruptive peer. resting today. no request for discharge. no behavioral issues. continue current mgmt. 04/14: slept 5 hours. somewhat hypomanic today, circumstantial and moderately disorganized. agreeable to stay for the time being, per SW. increase abilify to 15 mg daily for mood stability. call placed to radiology for read on MRI brain done 04/05/25. 04/15: head MRI read remains absent. stable presentation. resting today, not activated or irritable. continue current mgmt. 04/16: stable presentation. remains a bit more organized and less labile than prior, since increase in abilify dosing. also a bit more tired. T/C moving abilify to HS to prevent daytime sedation. 04/17: lying in bed, calm. does not mention agitation around midnight last night. no complaints or requests. continue current mgmt. continues more organized and less labile. 04/18: MRI brain c/w AD and vascular dementia. start donepezil. remains less labile and irritable since abilify dosing increase. awaiting placement. continue current mgmt. 04/19: appears to be endorsing AH and expressing paranoia re staff today. increase abilify once again, this time with added dose in the evening. otherwise continue current mgmt. 04/20/25: Patient slept for 8 hours, was medication compliant. Denied side effects. However per nursing staff, patient was struggle with taking medication last night. She has sundown symptoms, more irritable in the afternoon and evening. During conversation with this provider, patient reports that she feel irritable but denies anxiety or depression. She said medications do not do anything good. Sucks being in here. Then she is more irritable when we asked about safety concern questions. it Is a bunch of bullshit, I am done talking . However she continued engaged in conversation when this provider review with her regarding Abilify scheduled time of the afternoon dose. She is working on menu at the same time. Per nursing, patient struggle with taking Abilify in the afternoon yesterday, after he she has sundown symptoms. Therefore I will change to 1600 so nursing staff can offer her at around 3 PM. Does not make any paranoid statements. 04/20: tired, resting in the morning. no paranoid delusions expressed. court paperwork completed for affirming HCP. continue current mgmt. 04/22: as for yesterday. reportedly c/o chills, shivering overnight, denies today. afebrile. continue current mgmt. 04/23: continue current tx 04/24: continue current tx 04/25: stable, continue current mgmt. 04/26: no change in presentation. HCP affirmation hearing tomorrow. continue current mgmt. 04/27: no change in presentation. HCP affirmation hearing today. continue current mgmt. 04/28 continue current medications. 04/29 continue tx. 04/30: continue current management and treatment plan. 05/01: continue current management and treatment plan. 05/02: Continue current management and treatment plan. Reason for continued inpatient stay Substantial Risk for: inability to function and rapid decompensation Time Spent With Patient Time: Total time managing care of this patient today ____ minutes.
[2025-05-02] MEDS: Butalb/Acetamin/Caff 50/325/40 TABLET 1 TAB PO (12:31)
--- NOTE | 2025-05-02 16:24 | MHC.CLN ---
/U DIET=REGULAR. ENSURE TID PROVIDES 1050 KCALS, 60 G PROTEIN. CONTINUES WITH VARIABLE PO INTAKE, WITH MANY MEALS 100%. CONTINUE TO FOLLOW FOR PO INTAKE.
[2025-05-02 20:00] VITALS: BP 137/71; PULSE 48; RESP 15; TEMP 36.6; O2SAT 96
[2025-05-03 08:00] VITALS: BP 131/62; PULSE 61; RESP 16; TEMP 36.5; O2SAT 95
--- NOTE | 2025-05-03 09:06 | HO.PSYCHPN ---
Subjective Subjective Date of Service: 05/03/25 Reason For Visit: decompensation/ depression Subjective Notes: Conditional Voluntary Healthcare Proxy: Yes Interim History: Pt slept through the night. She reports she lost her glasses today, seems like this may have happened over the weekend. Staff have looked for them, no luck. Pt denies RAMIRES, no physical concerns. She is taking medications as prescribed. VS stable. Medication Compliance: Yes Review of Systems Review of Systems Denied Yes all other systems are reviewed and are negative Mental Status Exam Mental Status Exam Narrative: Appearance: wearing hospital gown, thin, very poor hygiene, malodorous, in NAD Behavior: superficially cooperative Psychomotor: no agitation or retardation noted. no tremors. Speech: mostly clear, normal rate/rhythm/volume, spontaneous TP: tangential, at times circumstantial TC: wanting to go home Mood: good, thank you Affect: congruent SI: adamantly denies HI: denies VH/AH: no signs Delusions: no overt delusional content but noted confabulation. Insight/judgment: impaired x 2. memory/cog: alert, oriented to place, month and year but not to situation. Significant difficulty remembering events that led to this admission. MOCA Diagnostics Vital Signs (24Hr): Vital Signs - 24 hr 05/02/25 20:00 05/03/25 08:00 Temperature 97.9 F 97.7 F Pulse Rate 48 L 61 Respiratory Rate 15 16 Blood Pressure 137/71 131/62 Pulse Oximetry 96 95 Oxygen Delivery Method Room Air Room Air BMI result Body Mass Index 17.1 Labs 04/11/25 09:58 04/11/25 09:58 Imaging Radiology Impressions: ITS Impressions Thyroid Ultrasound 04/03/25 11:58 IMPRESSION: Heterogeneous hypervascular thyroid gland. No discrete nodules are identified. ACR TI-RADS Guidelines TR1 (0 points): Benign. No follow-up or biopsy required TR2 (2 points): Not Suspicious. No biopsy or follow up indicated TR3 (3 points): Mildly Suspicious. FNA if >= 2.5 cm, Follow if >= 1.5 cm TR4 (4-6 points): Moderately Suspicious. FNA if >= 1.5 cm, Follow if >= 1.0 cm TR5 (>=7 points): Highly Suspicious. FNA if >= 1.0 cm, Follow if >= 0.5 cm Electronically signed by: García Young MD 04/04/2025 07:08 AM EDT RP Abdomen X-Ray 04/05/25 11:25 IMPRESSION: No radiopaque foreign body is identified. Electronically signed by: García Young MD 04/05/2025 11:45 AM EDT RP Chest X-Ray 04/05/25 11:25 IMPRESSION: Clear lungs. No radiopaque foreign body is identified. Electronically signed by: García Young MD 04/05/2025 11:46 AM EDT RP Skull X-Ray 04/05/25 11:25 IMPRESSION: No radiopaque foreign body is identified. Electronically signed by: García Young MD 04/05/2025 11:47 AM EDT RP Brain MRI 04/05/25 11:38 IMPRESSION: 1. No evidence of intracranial hemorrhage, acute infarction, mass effect, or edema. 2. Age advanced cerebral and cerebellar volume loss. Please refer to the above, and the full neuroquantitative report included with the examination. 3. Moderate to severe changes of small vessel ischemia. 4. Crib d'etat appearance of the basal ganglia suggestive of sequela of chronic hypertension. Electronically signed by: Ruddy Moreau MD 04/18/2025 08:28 AM EDT RP Medications Medications Current Medications Acetaminophen (Acetaminophen 325 Mg Tablet) 650 mg PO Q6H PRN PRN Reason: Pain 1-10 or headache Last Admin: 05/02/25 16:45 Dose: 650 mg Acetaminophen/Butalbital/Caffeine (Butalb/Acetamin/Caff 50/325/40 Tablet) 1 tab PO BID PRN PRN Reason: Pain, Moderate(Pain Scale 4-6) Last Admin: 05/02/25 12:31 Dose: 1 tab Al Hydroxide/Mg Hydroxide (Magnesium Hydrox/Alum Hydrox 30 Ml Oral.Susp) 30 ml PO Q6H PRN PRN Reason: Heartburn/Nausea Alprazolam (Alprazolam 0.25 Mg Tablet) 0.25 mg PO BID PRN PRN Reason: agitation/anxiety Last Admin: 05/02/25 09:54 Dose: 0.25 mg Amlodipine Besylate (Amlodipine Besylate 5 Mg Tablet) 5 mg PO DAILY [facility]; Protocol Last Admin: 05/02/25 08:47 Dose: 5 mg Aripiprazole (Aripiprazole 15 Mg Tablet) 15 mg PO DAILY [facility] Last Admin: 05/02/25 08:48 Dose: 15 mg Aripiprazole (Aripiprazole 5 Mg Tablet) 5 mg PO DAILY@1600 [facility] Last Admin: 05/02/25 15:19 Dose: 5 mg Atorvastatin Calcium (Atorvastatin Calcium 80 Mg Tablet) 80 mg PO DAILY [facility] Last Admin: 05/02/25 08:47 Dose: 80 mg Donepezil HCl (Donepezil Hcl 5 Mg Tablet) 5 mg PO BEDTIME [facility] Last Admin: 05/02/25 20:18 Dose: 5 mg Magnesium Hydroxide (Milk Of Magnesia 30 Ml Oral.Susp) 30 ml PO DAILY PRN PRN Reason: Constipation Methimazole (Methimazole 10 Mg Tablet) 10 mg PO DAILY [facility] Last Admin: 05/02/25 08:47 Dose: 10 mg Mirtazapine (Mirtazapine 15 Mg Tablet) 15 mg PO BEDTIME [facility] Last Admin: 05/02/25 20:18 Dose: 15 mg Nicotine Polacrilex (Nicotine Polacrilex 2 Mg Gum) 4 mg BUCCAL Q2H PRN PRN Reason: Nicotine Cravings Olanzapine (Olanzapine 5 Mg Tablet) 5 mg PO TID PRN PRN Reason: agitation Last Admin: 05/02/25 15:15 Dose: 5 mg Omeprazole (Omeprazole 20 Mg Capsule.Dr) 20 mg PO DAILY@0630 [facility] Last Admin: 05/03/25 06:09 Dose: 20 mg Spironolactone (Spironolactone 25 Mg Tablet) 25 mg PO DAILY [facility]; Protocol Last Admin: 05/02/25 08:48 Dose: 25 mg Trazodone HCl (Trazodone Hcl 25 Mg Halftab) 25 mg PO BEDTIME MRX1 PRN PRN Reason: Insomnia Last Admin: 04/26/25 21:20 Dose: 25 mg Trazodone HCl (Trazodone Hcl 25 Mg Halftab) 12.5 mg PO Q6H PRN PRN Reason: anxiety/agitation Allergies Allergies Allergy/AdvReac Type Severity Reaction Status Date / Time codeine Allergy Intermediate hives Verified 03/28/25 21:43 NSAIDS (Non-Steroidal AdvReac Severe gi bleed Verified 04/05/25 10:40 Anti-Inflamma Assessment & Plan Assessment & Plan (1) MDD (major depressive disorder), recurrent episode, moderate: Status: Acute Code(s): F33.1 - Major depressive disorder, recurrent, moderate (2) Major neurocognitive disorder, due to another medical condition, with behavioral disturbance, severe: Status: Acute Code(s): F02.C18 - Dementia in other diseases classified elsewhere, severe, with other behavioral disturbance (3) Graves disease: Status: Acute Code(s): E05.00 - Thyrotoxicosis with diffuse goiter without thyrotoxic crisis or storm Assessment and Plan: Pt is a 70-year-old female with a PMH significant for?HLD/CAD, NSTEMI 17 years ago, HTN, HFpEF, aniety, and depression who is admitted to [facility] for increasing depression with SI. Pt initially presented to [facility] for profound lethargy and inability to function at home. Workup was negative except for undetectable TSH but T3 and T4 WNL. While in the ED pt became agitated with multiple outbursts, including throwing coffee, kicking and screaming, and swearing at staff. Pt was not redirectable and required IM Zyprexa. Seen today for right ear pain, transaminitis. . Right otitis media. Augmentin 875 mgs BID for 5 days Improved HTN/CAD/HLD Continue amlodipine. Reports hx of NSTEMI 17 years ago No longer taking aspirin or Plavix, unclear if pt stopped taking on her own or at direction of cardiology Continue statin Asymptomatic bradycardia Metoprolol DC Graves disease Thyroid ultrasound without nodules but noted to be hypervascular TSI and TRAb elevated. Free T3 elevated, T4 normal Continue Methimazole 10 mgs daily Repeat labs in one week. Follow labs every 4 weeks. Will need endocrinology follow up. Abdominal pain/transaminitis Abdominal pain resolved If reoccurs we will order HIDA scan Patient reports a history of Hep C- Viral panel undetectable. Patient with a history of EtOH use Abdominal pain resolved. Liver tests reviewed with Dr. Mauro. No further intervention as abdominal pain resolved. Patient refused HIDA scan Hx of HFpEF Not in acute exacerbation Continue spironolactone Thank you for allowing me to participate in the care of this patient. We will continue to follow as needed. Please reconsult of any acute concerns or issues arise Plan Mrs. Martinez is a 70 year-old woman who was initially brought to [facility] due to weakness, profound lethargy and inability to care for herself. While in the ED, pt presented as agitated, combative and reported SI. Daughter reports pt has been struggling to care for herself (house without hot water, in condemnable condition and pt has not showered in several months). Pt is not able to recall events leading to this admission, despite the fact that she is oriented to month, year and place. We discussed risks, benefits and alternative treatment options. Will lower dose of xanax as pt this morning was more somnolent and lethargic although she had not received xanax. Lowered to 0.5mg po TID. continue effexor er 75mg po daily. Pt noted to have BP elevated but this was one point of care- will continue to monitor. No signs of benzo withdrawal. Pending MOCA/ACL. Will also check B12 (note that although no anemia, MCV was high). Repeat of CMP shows some degree of dehydration (elevated BUN from 14 to 23)- encourage fluids. PLAN 04/04 LFTs trending up, GI following, denies any abdominal pain, no vomiting, afebrile. pt confused as to why she is here, somewhat suspicious about her children wanting to leave her here. Will hold on starting medications until LFTs and bilirubin normalizes. Pending US of gallbladder today. 04/05 pt forgetful from day to day, confabulation with often seems more like blaming her children for doing things behind her back and thinks they are lying when technical publications writer explains concern in terms of memory/cog impairments. 04/06 LFTs trending down. Will start abilify for mood/suspiciousness. 04/08 continue tx. 04/09: Continue current regimen and plans. Trial of Fioricet b.i.d. PRN 04/11 increase abilify for mood. reading of MRI with neuroquant- still pending. CAUTION WITH ACETAMINOPHEN AND LFTS. ALSO CAUTION WITH NSAID- not H&H down since admission. She was started on Tapazole 10mg po daily for graves disease- newly dx here. HIDA scan for abdominal pain not completed due to pt declining- may need to reorder if pt presents with abdominal pain or again LFTs elevation. 04/12: stable, demented. asking about discharge home when awaiting placement. MRI c neuroquant pending. stable presentation. continue current mgmt for now. 04/13: poor sleep due to disruptive peer. resting today. no request for discharge. no behavioral issues. continue current mgmt. 04/14: slept 5 hours. somewhat hypomanic today, circumstantial and moderately disorganized. agreeable to stay for the time being, per SW. increase abilify to 15 mg daily for mood stability. call placed to radiology for read on MRI brain done 04/05/25. 04/15: head MRI read remains absent. stable presentation. resting today, not activated or irritable. continue current mgmt. 04/16: stable presentation. remains a bit more organized and less labile than prior, since increase in abilify dosing. also a bit more tired. T/C moving abilify to HS to prevent daytime sedation. 04/17: lying in bed, calm. does not mention agitation around midnight last night. no complaints or requests. continue current mgmt. continues more organized and less labile. 04/18: MRI brain c/w AD and vascular dementia. start donepezil. remains less labile and irritable since abilify dosing increase. awaiting placement. continue current mgmt. 04/19: appears to be endorsing AH and expressing paranoia re staff today. increase abilify once again, this time with added dose in the evening. otherwise continue current mgmt. 04/20/25: Patient slept for 8 hours, was medication compliant. Denied side effects. However per nursing staff, patient was struggle with taking medication last night. She has sundown symptoms, more irritable in the afternoon and evening. During conversation with this provider, patient reports that she feel irritable but denies anxiety or depression. She said medications do not do anything good. Sucks being in here. Then she is more irritable when we asked about safety concern questions. it Is a bunch of bullshit, I am done talking . However she continued engaged in conversation when this provider review with her regarding Abilify scheduled time of the afternoon dose. She is working on menu at the same time. Per nursing, patient struggle with taking Abilify in the afternoon yesterday, after he she has sundown symptoms. Therefore I will change to 1600 so nursing staff can offer her at around 3 PM. Does not make any paranoid statements. 04/20: tired, resting in the morning. no paranoid delusions expressed. court paperwork completed for affirming HCP. continue current mgmt. 04/22: as for yesterday. reportedly c/o chills, shivering overnight, denies today. afebrile. continue current mgmt. 04/23: continue current tx 04/24: continue current tx 04/25: stable, continue current mgmt. 04/26: no change in presentation. HCP affirmation hearing tomorrow. continue current mgmt. 04/27: no change in presentation. HCP affirmation hearing today. continue current mgmt. 04/28 continue current medications. 04/29 continue tx. 04/30: continue current management and treatment plan. 05/01: continue current management and treatment plan. 05/02: Continue current management and treatment plan. 05/03 continue tx. Reason for continued inpatient stay Substantial Risk for: inability to function Time Spent With Patient Time: Total time managing care of this patient today ____ minutes.
[2025-05-03 09:25] VITALS: BP 131/62
[2025-05-03] MEDS: Butalb/Acetamin/Caff 50/325/40 TABLET 1 TAB PO (17:53)
[2025-05-03 20:00] VITALS: BP 140/52; PULSE 40; RESP 20; TEMP 36.2; O2SAT 98
--- NOTE | 2025-05-04 00:09 | PC.NURSE ---
0009 Pt came to [facility], sat down and ate jello. Pt vocalizing no headache at this time and woke up as she is slight anxious about prepare herself for going home . Pt said first thing she would like to do is check and see if she has insurance on her car . Pt requested and provided her PRN Xanax for her anxiety.. Patient returned to her room to attempt to sleep.
[2025-05-04 08:00] VITALS: BP 112/53; PULSE 55; RESP 15; TEMP 35.8; O2SAT 98
--- NOTE | 2025-05-04 09:15 | P.PNPSI_ITS ---
Subjective Subjective Date of Service: 05/04/25 Reason For Visit: decompensation/ depression Subjective Notes: Conditional Voluntary Healthcare Proxy: Yes Interim History: Pt slept through the night. She reports she is doing well. She is calm and denies any depression. Much less dysphoric overall. No behavioral concerns. She is eating well. Pt denies RAMIRES, no physical concerns. She is taking medications as prescribed. VS stable. Review of Systems Review of Systems Denied Yes all other systems are reviewed and are negative Mental Status Exam Mental Status Exam Narrative: Appearance: wearing hospital gown, thin, very poor hygiene, malodorous, in NAD Behavior: superficially cooperative Psychomotor: no agitation or retardation noted. no tremors. Speech: mostly clear, normal rate/rhythm/volume, spontaneous TP: tangential, at times circumstantial TC: wanting to go home Mood: good, thank you Affect: congruent SI: adamantly denies HI: denies VH/AH: no signs Delusions: no overt delusional content but noted confabulation. Insight/judgment: impaired x 2. memory/cog: alert, oriented to place, month and year but not to situation. Significant difficulty remembering events that led to this admission. MOCA Diagnostics Vital Signs (24Hr): Vital Signs - 24 hr 05/03/25 09:25 05/03/25 09:25 05/03/25 20:00 Temperature 97.1 F Pulse Rate 40 L Respiratory Rate 20 Blood Pressure 131/62 131/62 140/52 H Pulse Oximetry 98 Oxygen Delivery Method Room Air 05/04/25 08:00 Temperature 96.5 F L Pulse Rate 55 Respiratory Rate 15 Blood Pressure 112/53 L Pulse Oximetry 98 Oxygen Delivery Method Room Air BMI result Body Mass Index 17.1 Labs 04/11/25 09:58 04/11/25 09:58 Imaging Radiology Impressions: ITS Impressions Thyroid Ultrasound 04/03/25 11:58 IMPRESSION: Heterogeneous hypervascular thyroid gland. No discrete nodules are identified. ACR TI-RADS Guidelines TR1 (0 points): Benign. No follow-up or biopsy required TR2 (2 points): Not Suspicious. No biopsy or follow up indicated TR3 (3 points): Mildly Suspicious. FNA if >= 2.5 cm, Follow if >= 1.5 cm TR4 (4-6 points): Moderately Suspicious. FNA if >= 1.5 cm, Follow if >= 1.0 cm TR5 (>=7 points): Highly Suspicious. FNA if >= 1.0 cm, Follow if >= 0.5 cm Electronically signed by: García Young MD 04/04/2025 07:08 AM EDT RP Abdomen X-Ray 04/05/25 11:25 IMPRESSION: No radiopaque foreign body is identified. Electronically signed by: García Young MD 04/05/2025 11:45 AM EDT RP Chest X-Ray 04/05/25 11:25 IMPRESSION: Clear lungs. No radiopaque foreign body is identified. Electronically signed by: García Young MD 04/05/2025 11:46 AM EDT RP Skull X-Ray 04/05/25 11:25 IMPRESSION: No radiopaque foreign body is identified. Electronically signed by: García Young MD 04/05/2025 11:47 AM EDT RP Brain MRI 04/05/25 11:38 IMPRESSION: 1. No evidence of intracranial hemorrhage, acute infarction, mass effect, or edema. 2. Age advanced cerebral and cerebellar volume loss. Please refer to the above, and the full neuroquantitative report included with the examination. 3. Moderate to severe changes of small vessel ischemia. 4. Crib d'etat appearance of the basal ganglia suggestive of sequela of chronic hypertension. Electronically signed by: Ruddy Moreau MD 04/18/2025 08:28 AM EDT Medications Medications Current Medications Acetaminophen (Acetaminophen 325 Mg Tablet) 650 mg PO Q6H PRN PRN Reason: Pain 1-10 or headache Last Admin: 05/03/25 11:58 Dose: 650 mg Acetaminophen/Butalbital/Caffeine (Butalb/Acetamin/Caff 50/325/40 Tablet) 1 tab PO BID PRN PRN Reason: Pain, Moderate(Pain Scale 4-6) Last Admin: 05/03/25 17:53 Dose: 1 tab Al Hydroxide/Mg Hydroxide (Magnesium Hydrox/Alum Hydrox 30 Ml Oral.Susp) 30 ml PO Q6H PRN PRN Reason: Heartburn/Nausea Alprazolam (Alprazolam 0.25 Mg Tablet) 0.25 mg PO BID PRN PRN Reason: agitation/anxiety Last Admin: 05/03/25 23:50 Dose: 0.25 mg Amlodipine Besylate (Amlodipine Besylate 5 Mg Tablet) 5 mg PO DAILY [facility]; Protocol Last Admin: 05/04/25 08:52 Dose: 5 mg Aripiprazole (Aripiprazole 15 Mg Tablet) 15 mg PO DAILY [facility] Last Admin: 05/04/25 08:53 Dose: 15 mg Aripiprazole (Aripiprazole 5 Mg Tablet) 5 mg PO DAILY@1600 [facility] Last Admin: 05/03/25 16:14 Dose: 5 mg Atorvastatin Calcium (Atorvastatin Calcium 80 Mg Tablet) 80 mg PO DAILY [facility] Last Admin: 05/04/25 08:52 Dose: 80 mg Donepezil HCl (Donepezil Hcl 5 Mg Tablet) 5 mg PO BEDTIME [facility] Last Admin: 05/03/25 20:49 Dose: 5 mg Magnesium Hydroxide (Milk Of Magnesia 30 Ml Oral.Susp) 30 ml PO DAILY PRN PRN Reason: Constipation Methimazole (Methimazole 10 Mg Tablet) 10 mg PO DAILY [facility] Last Admin: 05/04/25 08:53 Dose: 10 mg Mirtazapine (Mirtazapine 15 Mg Tablet) 15 mg PO BEDTIME [facility] Last Admin: 05/03/25 20:49 Dose: 15 mg Nicotine Polacrilex (Nicotine Polacrilex 2 Mg Gum) 4 mg BUCCAL Q2H PRN PRN Reason: Nicotine Cravings Olanzapine (Olanzapine 5 Mg Tablet) 5 mg PO TID PRN PRN Reason: agitation Last Admin: 05/02/25 15:15 Dose: 5 mg Omeprazole (Omeprazole 20 Mg Capsule.Dr) 20 mg PO DAILY@0630 [facility] Last Admin: 05/04/25 05:41 Dose: 20 mg Spironolactone (Spironolactone 25 Mg Tablet) 25 mg PO DAILY [facility]; Protocol Last Admin: 05/04/25 08:52 Dose: 25 mg Trazodone HCl (Trazodone Hcl 25 Mg Halftab) 25 mg PO BEDTIME MRX1 PRN PRN Reason: Insomnia Last Admin: 04/26/25 21:20 Dose: 25 mg Trazodone HCl (Trazodone Hcl 25 Mg Halftab) 12.5 mg PO Q6H PRN PRN Reason: anxiety/agitation Allergies Allergies Allergy/AdvReac Type Severity Reaction Status Date / Time codeine Allergy Intermediate hives Verified 03/28/25 21:43 NSAIDS (Non-Steroidal AdvReac Severe gi bleed Verified 04/05/25 10:40 Anti-Inflamma Assessment & Plan Assessment & Plan (1) MDD (major depressive disorder), recurrent episode, moderate: Status: Acute Code(s): F33.1 - Major depressive disorder, recurrent, moderate (2) Major neurocognitive disorder, due to another medical condition, with behavioral disturbance, severe: Status: Acute Code(s): F02.C18 - Dementia in other diseases classified elsewhere, severe, with other behavioral disturbance (3) Graves disease: Status: Acute Code(s): E05.00 - Thyrotoxicosis with diffuse goiter without thyrotoxic crisis or storm Assessment and Plan: Pt is a 70-year-old female with a PMH significant for?HLD/CAD, NSTEMI 17 years ago, HTN, HFpEF, aniety, and depression who is admitted to [facility] for increasing depression with SI. Pt initially presented to [facility] for profound lethargy and inability to function at home. Workup was negative except for undetectable TSH but T3 and T4 WNL. While in the ED pt became agitated with multiple outbursts, including throwing coffee, kicking and screaming, and swearing at staff. Pt was not redirectable and required IM Zyprexa. Seen today for right ear pain, transaminitis. . Right otitis media. Augmentin 875 mgs BID for 5 days Improved HTN/CAD/HLD Continue amlodipine. Reports hx of NSTEMI 17 years ago No longer taking aspirin or Plavix, unclear if pt stopped taking on her own or at direction of cardiology Continue statin Asymptomatic bradycardia Metoprolol DC Graves disease Thyroid ultrasound without nodules but noted to be hypervascular TSI and TRAb elevated. Free T3 elevated, T4 normal Continue Methimazole 10 mgs daily Repeat labs in one week. Follow labs every 4 weeks. Will need endocrinology follow up. Abdominal pain/transaminitis Abdominal pain resolved If reoccurs we will order HIDA scan Patient reports a history of Hep C- Viral panel undetectable. Patient with a history of EtOH use Abdominal pain resolved. Liver tests reviewed with Dr. Mauro. No further intervention as abdominal pain resolved. Patient refused HIDA scan Hx of HFpEF Not in acute exacerbation Continue spironolactone Thank you for allowing me to participate in the care of this patient. We will continue to follow as needed. Please reconsult of any acute concerns or issues arise Plan Mrs. Martinez is a 70 year-old woman who was initially brought to [facility] due to weakness, profound lethargy and inability to care for herself. While in the ED, pt presented as agitated, combative and reported SI. Daughter reports pt has been struggling to care for herself (house without hot water, in condemnable condition and pt has not showered in several months). Pt is not able to recall events leading to this admission, despite the fact that she is oriented to month, year and place. We discussed risks, benefits and alternative treatment options. Will lower dose of xanax as pt this morning was more somnolent and lethargic although she had not received xanax. Lowered to 0.5mg po TID. continue effexor er 75mg po daily. Pt noted to have BP elevated but this was one point of care- will continue to monitor. No signs of benzo withdrawal. Pending MOCA/ACL. Will also check B12 (note that although no anemia, MCV was high). Repeat of CMP shows some degree of dehydration (elevated BUN from 14 to 23)- encourage fluids. PLAN 04/04 LFTs trending up, GI following, denies any abdominal pain, no vomiting, afebrile. pt confused as to why she is here, somewhat suspicious about her children wanting to leave her here. Will hold on starting medications until LFTs and bilirubin normalizes. Pending US of gallbladder today. 04/05 pt forgetful from day to day, confabulation with often seems more like blaming her children for doing things behind her back and thinks they are lying when health underwriter explains concern in terms of memory/cog impairments. 04/06 LFTs trending down. Will start abilify for mood/suspiciousness. 04/08 continue tx. 04/09: Continue current regimen and plans. Trial of Fioricet b.i.d. PRN 04/11 increase abilify for mood. reading of MRI with neuroquant- still pending. CAUTION WITH ACETAMINOPHEN AND LFTS. ALSO CAUTION WITH NSAID- not H&H down since admission. She was started on Tapazole 10mg po daily for graves disease- newly dx here. HIDA scan for abdominal pain not completed due to pt declining- may need to reorder if pt presents with abdominal pain or again LFTs elevation. 04/12: stable, demented. asking about discharge home when awaiting placement. MRI c neuroquant pending. stable presentation. continue current mgmt for now. 04/13: poor sleep due to disruptive peer. resting today. no request for discharge. no behavioral issues. continue current mgmt. 04/14: slept 5 hours. somewhat hypomanic today, circumstantial and moderately disorganized. agreeable to stay for the time being, per SW. increase abilify to 15 mg daily for mood stability. call placed to radiology for read on MRI brain done 04/05/25. 04/15: head MRI read remains absent. stable presentation. resting today, not activated or irritable. continue current mgmt. 04/16: stable presentation. remains a bit more organized and less labile than prior, since increase in abilify dosing. also a bit more tired. T/C moving abilify to HS to prevent daytime sedation. 04/17: lying in bed, calm. does not mention agitation around midnight last night. no complaints or requests. continue current mgmt. continues more organized and less labile. 04/18: MRI brain c/w AD and vascular dementia. start donepezil. remains less labile and irritable since abilify dosing increase. awaiting placement. continue current mgmt. 04/19: appears to be endorsing AH and expressing paranoia re staff today. increase abilify once again, this time with added dose in the evening. otherwise continue current mgmt. 04/20/25: Patient slept for 8 hours, was medication compliant. Denied side effects. However per nursing staff, patient was struggle with taking medication last night. She has sundown symptoms, more irritable in the afternoon and evening. During conversation with this provider, patient reports that she feel irritable but denies anxiety or depression. She said medications do not do anything good. Sucks being in here. Then she is more irritable when we asked about safety concern questions. it Is a bunch of bullshit, I am done talking . However she continued engaged in conversation when this provider review with her regarding Abilify scheduled time of the afternoon dose. She is working on menu at the same time. Per nursing, patient struggle with taking Abilify in the afternoon yesterday, after he she has own symptoms. Therefore I will change to 1600 so nursing staff can offer her at around 3 PM. Does not make any paranoid statements. 04/20: tired, resting in the morning. no paranoid delusions expressed. court paperwork completed for affirming HCP. continue current mgmt. 04/22: as for yesterday. reportedly c/o chills, shivering overnight, denies today. afebrile. continue current mgmt. 04/23: continue current tx 04/24: continue current tx 04/25: stable, continue current mgmt. 04/26: no change in presentation. HCP affirmation hearing tomorrow. continue current mgmt. 04/27: no change in presentation. HCP affirmation hearing today. continue current mgmt. 04/28 continue current medications. 04/29 continue tx. 04/30: continue current management and treatment plan. 05/01: continue current management and treatment plan. 05/02: Continue current management and treatment plan. 05/03 continue tx. 05/04 continue tx. Reason for continued inpatient stay Substantial Risk for: inability to function Time Spent With Patient Time: Total time managing care of this patient today ____ minutes.
[2025-05-04] MEDS: Butalb/Acetamin/Caff 50/325/40 TABLET 1 TAB PO (19:54)
[2025-05-04 20:00] VITALS: BP 109/63; PULSE 41; TEMP 36.2; O2SAT 98
[2025-05-05 08:00] VITALS: BP 117/82; PULSE 85; RESP 16; TEMP 2.5; TEMP 36.5; O2SAT 96
[2025-05-05 09:25] VITALS: BP 117/82
[2025-05-05 09:26] VITALS: BP 117/82
--- NOTE | 2025-05-05 16:38 | HO.PSYCHPN ---
Subjective Subjective Date of Service: 05/05/25 Reason For Visit: decompensation/ depression Subjective Notes: Conditional Voluntary Healthcare Proxy: Yes Interim History: Pt slept through the night. Pt reports sleeping well. She denies any physical concerns. She has been visible on the unit, social with select peers. Eating well. Pt denies RAMIRES, no physical concerns. She is taking medications as prescribed. VS stable. Review of Systems Review of Systems Denied Yes all other systems are reviewed and are negative Mental Status Exam Mental Status Exam Narrative: Appearance: wearing hospital gown, thin, very poor hygiene, malodorous, in NAD Behavior: superficially cooperative Psychomotor: no agitation or retardation noted. no tremors. Speech: mostly clear, normal rate/rhythm/volume, spontaneous TP: tangential, at times circumstantial TC: wanting to go home Mood: good, thank you Affect: congruent SI: adamantly denies HI: denies VH/AH: no signs Delusions: no overt delusional content but noted confabulation. Insight/judgment: impaired x 2. memory/cog: alert, oriented to place, month and year but not to situation. Significant difficulty remembering events that led to this admission. MOCA Patient Appearance: Appropriate Patient Orientation: Person Level of Consciousness: Alert Patient Behavior: Talkative and Cooperative Mood Description: Depressed and Cheerful Affect Description: Appropriate and Flat Patient Cognition Impaired: Yes Ability to Follow Directions: Fair Speech Pattern: Spontaneous Speech Memory Description: Remote Impaired Diagnostics Vital Signs (24Hr): Vital Signs - 24 hr 05/04/25 20:00 05/05/25 08:00 05/05/25 09:25 Temperature 97.1 F 36.5 F L Pulse Rate 41 L 85 Respiratory Rate 16 Blood Pressure 109/63 117/82 117/82 Pulse Oximetry 98 96 Oxygen Delivery Method Room Air Room Air 05/05/25 09:26 Temperature Pulse Rate Respiratory Rate Blood Pressure 117/82 Pulse Oximetry Oxygen Delivery Method BMI result Body Mass Index 17.1 Labs 04/11/25 09:58 04/11/25 09:58 Imaging Radiology Impressions: ITS Impressions Thyroid Ultrasound 04/03/25 11:58 IMPRESSION: Heterogeneous hypervascular thyroid gland. No discrete nodules are identified. ACR TI-RADS Guidelines TR1 (0 points): Benign. No follow-up or biopsy required TR2 (2 points): Not Suspicious. No biopsy or follow up indicated TR3 (3 points): Mildly Suspicious. FNA if >= 2.5 cm, Follow if >= 1.5 cm TR4 (4-6 points): Moderately Suspicious. FNA if >= 1.5 cm, Follow if >= 1.0 cm TR5 (>=7 points): Highly Suspicious. FNA if >= 1.0 cm, Follow if >= 0.5 cm Electronically signed by: García Young MD 04/04/2025 07:08 AM EDT RP Abdomen X-Ray 04/05/25 11:25 IMPRESSION: No radiopaque foreign body is identified. Electronically signed by: García Young MD 04/05/2025 11:45 AM EDT RP Chest X-Ray 04/05/25 11:25 IMPRESSION: Clear lungs. No radiopaque foreign body is identified. Electronically signed by: García Young MD 04/05/2025 11:46 AM EDT RP Skull X-Ray 04/05/25 11:25 IMPRESSION: No radiopaque foreign body is identified. Electronically signed by: García Young MD 04/05/2025 11:47 AM EDT RP Brain MRI 04/05/25 11:38 IMPRESSION: 1. No evidence of intracranial hemorrhage, acute infarction, mass effect, or edema. 2. Age advanced cerebral and cerebellar volume loss. Please refer to the above, and the full neuroquantitative report included with the examination. 3. Moderate to severe changes of small vessel ischemia. 4. Crib d'etat appearance of the basal ganglia suggestive of sequela of chronic hypertension. Electronically signed by: Ruddy Moreau MD 04/18/2025 08:28 AM EDT RP Medications Medications Current Medications Acetaminophen (Acetaminophen 325 Mg Tablet) 650 mg PO Q6H PRN PRN Reason: Pain 1-10 or headache Last Admin: 05/03/25 11:58 Dose: 650 mg Acetaminophen/Butalbital/Caffeine (Butalb/Acetamin/Caff 50/325/40 Tablet) 1 tab PO BID PRN PRN Reason: Pain, Moderate(Pain Scale 4-6) Last Admin: 05/04/25 19:54 Dose: 1 tab Al Hydroxide/Mg Hydroxide (Magnesium Hydrox/Alum Hydrox 30 Ml Oral.Susp) 30 ml PO Q6H PRN PRN Reason: Heartburn/Nausea Amlodipine Besylate (Amlodipine Besylate 5 Mg Tablet) 5 mg PO DAILY [facility]; Protocol Last Admin: 05/05/25 09:25 Dose: 5 mg Aripiprazole (Aripiprazole 15 Mg Tablet) 15 mg PO DAILY [facility] Last Admin: 05/05/25 09:26 Dose: 15 mg Aripiprazole (Aripiprazole 5 Mg Tablet) 5 mg PO DAILY@1600 [facility] Last Admin: 05/05/25 16:23 Dose: 5 mg Atorvastatin Calcium (Atorvastatin Calcium 80 Mg Tablet) 80 mg PO DAILY [facility] Last Admin: 05/05/25 09:26 Dose: 80 mg Donepezil HCl (Donepezil Hcl 5 Mg Tablet) 5 mg PO BEDTIME [facility] Last Admin: 05/04/25 19:49 Dose: 5 mg Magnesium Hydroxide (Milk Of Magnesia 30 Ml Oral.Susp) 30 ml PO DAILY PRN PRN Reason: Constipation Methimazole (Methimazole 10 Mg Tablet) 10 mg PO DAILY [facility] Last Admin: 05/05/25 09:25 Dose: 10 mg Mirtazapine (Mirtazapine 15 Mg Tablet) 15 mg PO BEDTIME [facility] Last Admin: 05/04/25 19:49 Dose: 15 mg Nicotine Polacrilex (Nicotine Polacrilex 2 Mg Gum) 4 mg BUCCAL Q2H PRN PRN Reason: Nicotine Cravings Olanzapine (Olanzapine 5 Mg Tablet) 5 mg PO TID PRN PRN Reason: agitation Last Admin: 05/02/25 15:15 Dose: 5 mg Omeprazole (Omeprazole 20 Mg Capsule.Dr) 20 mg PO DAILY@0630 [facility] Last Admin: 05/05/25 06:40 Dose: 20 mg Spironolactone (Spironolactone 25 Mg Tablet) 25 mg PO DAILY [facility]; Protocol Last Admin: 05/05/25 09:26 Dose: 25 mg Trazodone HCl (Trazodone Hcl 25 Mg Halftab) 25 mg PO BEDTIME MRX1 PRN PRN Reason: Insomnia Last Admin: 04/26/25 21:20 Dose: 25 mg Trazodone HCl (Trazodone Hcl 25 Mg Halftab) 12.5 mg PO Q6H PRN PRN Reason: anxiety/agitation Allergies Allergies Allergy/AdvReac Type Severity Reaction Status Date / Time codeine Allergy Intermediate hives Verified 03/28/25 21:43 NSAIDS (Non-Steroidal AdvReac Severe gi bleed Verified 04/05/25 10:40 Anti-Inflamma Assessment & Plan Assessment & Plan (1) MDD (major depressive disorder), recurrent episode, moderate: Status: Acute Code(s): F33.1 - Major depressive disorder, recurrent, moderate (2) Major neurocognitive disorder, due to another medical condition, with behavioral disturbance, severe: Status: Acute Code(s): F02.C18 - Dementia in other diseases classified elsewhere, severe, with other behavioral disturbance (3) Graves disease: Status: Acute Code(s): E05.00 - Thyrotoxicosis with diffuse goiter without thyrotoxic crisis or storm Assessment and Plan: Pt is a 70-year-old female with a PMH significant for?HLD/CAD, NSTEMI 17 years ago, HTN, HFpEF, aniety, and depression who is admitted to [facility] for increasing depression with SI. Pt initially presented to [facility] for profound lethargy and inability to function at home. Workup was negative except for undetectable TSH but T3 and T4 WNL. While in the ED pt became agitated with multiple outbursts, including throwing coffee, kicking and screaming, and swearing at staff. Pt was not redirectable and required IM Zyprexa. Seen today for right ear pain, transaminitis. . Right otitis media. Augmentin 875 mgs BID for 5 days Improved HTN/CAD/HLD Continue amlodipine. Reports hx of NSTEMI 17 years ago No longer taking aspirin or Plavix, unclear if pt stopped taking on her own or at direction of cardiology Continue statin Asymptomatic bradycardia Metoprolol DC Graves disease Thyroid ultrasound without nodules but noted to be hypervascular TSI and TRAb elevated. Free T3 elevated, T4 normal Continue Methimazole 10 mgs daily Repeat labs in one week. Follow labs every 4 weeks. Will need endocrinology follow up. Abdominal pain/transaminitis Abdominal pain resolved If reoccurs we will order HIDA scan Patient reports a history of Hep C- Viral panel undetectable. Patient with a history of EtOH use Abdominal pain resolved. Liver tests reviewed with Dr. Mauro. No further intervention as abdominal pain resolved. Patient refused HIDA scan Hx of HFpEF Not in acute exacerbation Continue spironolactone Thank you for allowing me to participate in the care of this patient. We will continue to follow as needed. Please reconsult of any acute concerns or issues arise Plan Mrs. Martinez is a 70 year-old woman who was initially brought to [facility] due to weakness, profound lethargy and inability to care for herself. While in the ED, pt presented as agitated, combative and reported SI. Daughter reports pt has been struggling to care for herself (house without hot water, in condemnable condition and pt has not showered in several months). Pt is not able to recall events leading to this admission, despite the fact that she is oriented to month, year and place. We discussed risks, benefits and alternative treatment options. Will lower dose of xanax as pt this morning was more somnolent and lethargic although she had not received xanax. Lowered to 0.5mg po TID. continue effexor er 75mg po daily. Pt noted to have BP elevated but this was one point of care- will continue to monitor. No signs of benzo withdrawal. Pending MOCA/ACL. Will also check B12 (note that although no anemia, MCV was high). Repeat of CMP shows some degree of dehydration (elevated BUN from 14 to 23)- encourage fluids. PLAN 04/04 LFTs trending up, GI following, denies any abdominal pain, no vomiting, afebrile. pt confused as to why she is here, somewhat suspicious about her children wanting to leave her here. Will hold on starting medications until LFTs and bilirubin normalizes. Pending US of gallbladder today. 04/05 pt forgetful from day to day, confabulation with often seems more like blaming her children for doing things behind her back and thinks they are lying when newswriter explains concern in terms of memory/cog impairments. 04/06 LFTs trending down. Will start abilify for mood/suspiciousness. 04/08 continue tx. 04/09: Continue current regimen and plans. Trial of Fioricet b.i.d. PRN 04/11 increase abilify for mood. reading of MRI with neuroquant- still pending. CAUTION WITH ACETAMINOPHEN AND LFTS. ALSO CAUTION WITH NSAID- not H&H down since admission. She was started on Tapazole 10mg po daily for graves disease- newly dx here. HIDA scan for abdominal pain not completed due to pt declining- may need to reorder if pt presents with abdominal pain or again LFTs elevation. 04/12: stable, demented. asking about discharge home when awaiting placement. MRI c neuroquant pending. stable presentation. continue current mgmt for now. 04/13: poor sleep due to disruptive peer. resting today. no request for discharge. no behavioral issues. continue current mgmt. 04/14: slept 5 hours. somewhat hypomanic today, circumstantial and moderately disorganized. agreeable to stay for the time being, per SW. increase abilify to 15 mg daily for mood stability. call placed to radiology for read on MRI brain done 04/05/25. 04/15: head MRI read remains absent. stable presentation. resting today, not activated or irritable. continue current mgmt. 04/16: stable presentation. remains a bit more organized and less labile than prior, since increase in abilify dosing. also a bit more tired. T/C moving abilify to HS to prevent daytime sedation. 04/17: lying in bed, calm. does not mention agitation around midnight last night. no complaints or requests. continue current mgmt. continues more organized and less labile. 04/18: MRI brain c/w AD and vascular dementia. start donepezil. remains less labile and irritable since abilify dosing increase. awaiting placement. continue current mgmt. 04/19: appears to be endorsing AH and expressing paranoia re staff today. increase abilify once again, this time with added dose in the evening. otherwise continue current mgmt. 04/20/25: Patient slept for 8 hours, was medication compliant. Denied side effects. However per nursing staff, patient was struggle with taking medication last night. She has sundown symptoms, more irritable in the afternoon and evening. During conversation with this provider, patient reports that she feel irritable but denies anxiety or depression. She said medications do not do anything good. Sucks being in here. Then she is more irritable when we asked about safety concern questions. it Is a bunch of bullshit, I am done talking . However she continued engaged in conversation when this provider review with her regarding Abilify scheduled time of the afternoon dose. She is working on menu at the same time. Per nursing, patient struggle with taking Abilify in the afternoon yesterday, after he she has own symptoms. Therefore I will change to 1600 so nursing staff can offer her at around 3 PM. Does not make any paranoid statements. 04/20: tired, resting in the morning. no paranoid delusions expressed. court paperwork completed for affirming HCP. continue current mgmt. 04/22: as for yesterday. reportedly c/o chills, shivering overnight, denies today. afebrile. continue current mgmt. 04/23: continue current tx 04/24: continue current tx 04/25: stable, continue current mgmt. 04/26: no change in presentation. HCP affirmation hearing tomorrow. continue current mgmt. 04/27: no change in presentation. HCP affirmation hearing today. continue current mgmt. 04/28 continue current medications. 04/29 continue tx. 04/30: continue current management and treatment plan. 05/01: continue current management and treatment plan. 05/02: Continue current management and treatment plan. 05/03 continue tx. 05/04 continue tx 05/05 continue tx. Reason for continued inpatient stay Substantial Risk for: inability to function Time Spent With Patient Time: Total time managing care of this patient today ____ minutes.
[2025-05-05 20:00] VITALS: BP 117/53; PULSE 68; RESP 16; TEMP 36.3; O2SAT 94
[2025-05-06 08:27] VITALS: BP 98/68; PULSE 41; RESP 14; TEMP 36.1; O2SAT 94
--- NOTE | 2025-05-06 09:29 | HO.PSYCHPN ---
Subjective Subjective Date of Service: 05/06/25 Reason For Visit: Bradycardia Subjective Notes: Conditional Voluntary Healthcare Proxy: Yes Interim History: Pt slept through the night. She denies any pain. She reports doing well. She is mostly in her room, not very social with peers. Daughter may take patient with her at her house. No behavioral concerns. Review of Systems Review of Systems Denied Yes all other systems are reviewed and are negative Mental Status Exam Mental Status Exam Narrative: Appearance: wearing hospital gown, thin, very poor hygiene, malodorous, in NAD Behavior: superficially cooperative Psychomotor: no agitation or retardation noted. no tremors. Speech: mostly clear, normal rate/rhythm/volume, spontaneous TP: tangential, at times circumstantial TC: wanting to go home Mood: good, thank you Affect: congruent SI: adamantly denies HI: denies VH/AH: no signs Delusions: no overt delusional content but noted confabulation. Insight/judgment: impaired x 2. memory/cog: alert, oriented to place, month and year but not to situation. Significant difficulty remembering events that led to this admission. MOCA Diagnostics Vital Signs (24Hr): Vital Signs - 24 hr 05/05/25 20:00 05/06/25 08:27 Temperature 97.3 F 97.0 F Pulse Rate 68 41 L Respiratory Rate 16 14 Blood Pressure 117/53 L 98/68 Pulse Oximetry 94 94 Oxygen Delivery Method Room Air Room Air BMI result Body Mass Index 17.1 Labs 05/06/25 18:30 05/06/25 18:30 Imaging Radiology Impressions: ITS Impressions Thyroid Ultrasound 04/03/25 11:58 IMPRESSION: Heterogeneous hypervascular thyroid gland. No discrete nodules are identified. ACR TI-RADS Guidelines TR1 (0 points): Benign. No follow-up or biopsy required TR2 (2 points): Not Suspicious. No biopsy or follow up indicated TR3 (3 points): Mildly Suspicious. FNA if >= 2.5 cm, Follow if >= 1.5 cm TR4 (4-6 points): Moderately Suspicious. FNA if >= 1.5 cm, Follow if >= 1.0 cm TR5 (>=7 points): Highly Suspicious. FNA if >= 1.0 cm, Follow if >= 0.5 cm Electronically signed by: García Young MD 04/04/2025 07:08 AM EDT RP Abdomen X-Ray 04/05/25 11:25 IMPRESSION: No radiopaque foreign body is identified. Electronically signed by: García Young MD 04/05/2025 11:45 AM EDT RP Chest X-Ray 04/05/25 11:25 IMPRESSION: Clear lungs. No radiopaque foreign body is identified. Electronically signed by: García Young MD 04/05/2025 11:46 AM EDT RP Skull X-Ray 04/05/25 11:25 IMPRESSION: No radiopaque foreign body is identified. Electronically signed by: García Young MD 04/05/2025 11:47 AM EDT RP Brain MRI 04/05/25 11:38 IMPRESSION: 1. No evidence of intracranial hemorrhage, acute infarction, mass effect, or edema. 2. Age advanced cerebral and cerebellar volume loss. Please refer to the above, and the full neuroquantitative report included with the examination. 3. Moderate to severe changes of small vessel ischemia. 4. Crib d'etat appearance of the basal ganglia suggestive of sequela of chronic hypertension. Electronically signed by: Ruddy Moreau MD 04/18/2025 08:28 AM EDT RP Medications Medications Current Medications Acetaminophen (Acetaminophen 325 Mg Tablet) 650 mg PO Q6H PRN PRN Reason: Pain 1-10 or headache Last Admin: 05/03/25 11:58 Dose: 650 mg Acetaminophen/Butalbital/Caffeine (Butalb/Acetamin/Caff 50/325/40 Tablet) 1 tab PO BID PRN PRN Reason: Pain, Moderate(Pain Scale 4-6) Last Admin: 05/04/25 19:54 Dose: 1 tab Al Hydroxide/Mg Hydroxide (Magnesium Hydrox/Alum Hydrox 30 Ml Oral.Susp) 30 ml PO Q6H PRN PRN Reason: Heartburn/Nausea Amlodipine Besylate (Amlodipine Besylate 5 Mg Tablet) 5 mg PO DAILY [facility]; Protocol Last Admin: 05/06/25 08:29 Dose: 5 mg Aripiprazole (Aripiprazole 15 Mg Tablet) 15 mg PO DAILY [facility] Last Admin: 05/06/25 08:29 Dose: 15 mg Aripiprazole (Aripiprazole 5 Mg Tablet) 5 mg PO DAILY@1600 [facility] Last Admin: 05/05/25 16:23 Dose: 5 mg Atorvastatin Calcium (Atorvastatin Calcium 80 Mg Tablet) 80 mg PO DAILY [facility] Last Admin: 05/06/25 08:29 Dose: 80 mg Donepezil HCl (Donepezil Hcl 5 Mg Tablet) 5 mg PO BEDTIME [facility] Last Admin: 05/05/25 20:42 Dose: 5 mg Magnesium Hydroxide (Milk Of Magnesia 30 Ml Oral.Susp) 30 ml PO DAILY PRN PRN Reason: Constipation Methimazole (Methimazole 10 Mg Tablet) 10 mg PO DAILY [facility] Last Admin: 05/06/25 08:29 Dose: 10 mg Mirtazapine (Mirtazapine 15 Mg Tablet) 15 mg PO BEDTIME [facility] Last Admin: 05/05/25 20:42 Dose: 15 mg Nicotine Polacrilex (Nicotine Polacrilex 2 Mg Gum) 4 mg BUCCAL Q2H PRN PRN Reason: Nicotine Cravings Olanzapine (Olanzapine 5 Mg Tablet) 5 mg PO TID PRN PRN Reason: agitation Last Admin: 05/02/25 15:15 Dose: 5 mg Omeprazole (Omeprazole 20 Mg Capsule.Dr) 20 mg PO DAILY@0630 [facility] Last Admin: 05/06/25 06:06 Dose: 20 mg Spironolactone (Spironolactone 25 Mg Tablet) 25 mg PO DAILY [facility]; Protocol Last Admin: 05/06/25 08:29 Dose: 25 mg Trazodone HCl (Trazodone Hcl 25 Mg Halftab) 25 mg PO BEDTIME MRX1 PRN PRN Reason: Insomnia Last Admin: 04/26/25 21:20 Dose: 25 mg Trazodone HCl (Trazodone Hcl 25 Mg Halftab) 12.5 mg PO Q6H PRN PRN Reason: anxiety/agitation Allergies Allergies Allergy/AdvReac Type Severity Reaction Status Date / Time codeine Allergy Intermediate hives Verified 03/28/25 21:43 NSAIDS (Non-Steroidal AdvReac Severe gi bleed Verified 04/05/25 10:40 Anti-Inflamma Assessment & Plan Assessment & Plan (1) MDD (major depressive disorder), recurrent episode, moderate: Status: Acute Code(s): F33.1 - Major depressive disorder, recurrent, moderate (2) Major neurocognitive disorder, due to another medical condition, with behavioral disturbance, severe: Status: Acute Code(s): F02.C18 - Dementia in other diseases classified elsewhere, severe, with other behavioral disturbance (3) Graves disease: Status: Acute Code(s): E05.00 - Thyrotoxicosis with diffuse goiter without thyrotoxic crisis or storm Assessment and Plan: Pt is a 70-year-old female with a PMH significant for?HLD/CAD, NSTEMI 17 years ago, HTN, HFpEF, aniety, and depression who is admitted to [facility] for increasing depression with SI. Pt initially presented to [facility] for profound lethargy and inability to function at home. Workup was negative except for undetectable TSH but T3 and T4 WNL. While in the ED pt became agitated with multiple outbursts, including throwing coffee, kicking and screaming, and swearing at staff. Pt was not redirectable and required IM Zyprexa. Seen today for right ear pain, transaminitis. . Right otitis media. Augmentin 875 mgs BID for 5 days Improved HTN/CAD/HLD Continue amlodipine. Reports hx of NSTEMI 17 years ago No longer taking aspirin or Plavix, unclear if pt stopped taking on her own or at direction of cardiology Continue statin Asymptomatic bradycardia Metoprolol DC Graves disease Thyroid ultrasound without nodules but noted to be hypervascular TSI and TRAb elevated. Free T3 elevated, T4 normal Continue Methimazole 10 mgs daily Repeat labs in one week. Follow labs every 4 weeks. Will need endocrinology follow up. Abdominal pain/transaminitis Abdominal pain resolved If reoccurs we will order HIDA scan Patient reports a history of Hep C- Viral panel undetectable. Patient with a history of EtOH use Abdominal pain resolved. Liver tests reviewed with Dr. Mauro. No further intervention as abdominal pain resolved. Patient refused HIDA scan Hx of HFpEF Not in acute exacerbation Continue spironolactone Thank you for allowing me to participate in the care of this patient. We will continue to follow as needed. Please reconsult of any acute concerns or issues arise Plan Mrs. Martinez is a 70 year-old woman who was initially brought to [facility] due to weakness, profound lethargy and inability to care for herself. While in the ED, pt presented as agitated, combative and reported SI. Daughter reports pt has been struggling to care for herself (house without hot water, in condemnable condition and pt has not showered in several months). Pt is not able to recall events leading to this admission, despite the fact that she is oriented to month, year and place. We discussed risks, benefits and alternative treatment options. Will lower dose of xanax as pt this morning was more somnolent and lethargic although she had not received xanax. Lowered to 0.5mg po TID. continue effexor er 75mg po daily. Pt noted to have BP elevated but this was one point of care- will continue to monitor. No signs of benzo withdrawal. Pending MOCA/ACL. Will also check B12 (note that although no anemia, MCV was high). Repeat of CMP shows some degree of dehydration (elevated BUN from 14 to 23)- encourage fluids. PLAN 04/04 LFTs trending up, GI following, denies any abdominal pain, no vomiting, afebrile. pt confused as to why she is here, somewhat suspicious about her children wanting to leave her here. Will hold on starting medications until LFTs and bilirubin normalizes. Pending US of gallbladder today. 04/05 pt forgetful from day to day, confabulation with often seems more like blaming her children for doing things behind her back and thinks they are lying when hand sign writer explains concern in terms of memory/cog impairments. 04/06 LFTs trending down. Will start abilify for mood/suspiciousness. 04/08 continue tx. 04/09: Continue current regimen and plans. Trial of Fioricet b.i.d. PRN 04/11 increase abilify for mood. reading of MRI with neuroquant- still pending. CAUTION WITH ACETAMINOPHEN AND LFTS. ALSO CAUTION WITH NSAID- not H&H down since admission. She was started on Tapazole 10mg po daily for graves disease- newly dx here. HIDA scan for abdominal pain not completed due to pt declining- may need to reorder if pt presents with abdominal pain or again LFTs elevation. 04/12: stable, demented. asking about discharge home when awaiting placement. MRI c neuroquant pending. stable presentation. continue current mgmt for now. 04/13: poor sleep due to disruptive peer. resting today. no request for discharge. no behavioral issues. continue current mgmt. 04/14: slept 5 hours. somewhat hypomanic today, circumstantial and moderately disorganized. agreeable to stay for the time being, per SW. increase abilify to 15 mg daily for mood stability. call placed to radiology for read on MRI brain done 04/05/25. 04/15: head MRI read remains absent. stable presentation. resting today, not activated or irritable. continue current mgmt. 04/16: stable presentation. remains a bit more organized and less labile than prior, since increase in abilify dosing. also a bit more tired. T/C moving abilify to HS to prevent daytime sedation. 04/17: lying in bed, calm. does not mention agitation around midnight last night. no complaints or requests. continue current mgmt. continues more organized and less labile. 04/18: MRI brain c/w AD and vascular dementia. start donepezil. remains less labile and irritable since abilify dosing increase. awaiting placement. continue current mgmt. 04/19: appears to be endorsing AH and expressing paranoia re staff today. increase abilify once again, this time with added dose in the evening. otherwise continue current mgmt. 04/20/25: Patient slept for 8 hours, was medication compliant. Denied side effects. However per nursing staff, patient was struggle with taking medication last night. She has sundown symptoms, more irritable in the afternoon and evening. During conversation with this provider, patient reports that she feel irritable but denies anxiety or depression. She said medications do not do anything good. Sucks being in here. Then she is more irritable when we asked about safety concern questions. it Is a bunch of bullshit, I am done talking . However she continued engaged in conversation when this provider review with her regarding Abilify scheduled time of the afternoon dose. She is working on menu at the same time. Per nursing, patient struggle with taking Abilify in the afternoon yesterday, after he she has sundown symptoms. Therefore I will change to 1600 so nursing staff can offer her at around 3 PM. Does not make any paranoid statements. 04/20: tired, resting in the morning. no paranoid delusions expressed. court paperwork completed for affirming HCP. continue current mgmt. 04/22: as for yesterday. reportedly c/o chills, shivering overnight, denies today. afebrile. continue current mgmt. 04/23: continue current tx 04/24: continue current tx 04/25: stable, continue current mgmt. 04/26: no change in presentation. HCP affirmation hearing tomorrow. continue current mgmt. 04/27: no change in presentation. HCP affirmation hearing today. continue current mgmt. 04/28 continue current medications. 04/29 continue tx. 04/30: continue current management and treatment plan. 05/01: continue current management and treatment plan. 05/02: Continue current management and treatment plan. 05/03 continue tx. 05/04 continue tx 05/05 continue tx. 05/06 continue tx. Reason for continued inpatient stay Substantial Risk for: inability to function Time Spent With Patient Time: Total time managing care of this patient today ____ minutes.
[2025-05-06] MEDS: Butalb/Acetamin/Caff 50/325/40 TABLET 1 TAB PO ×2 (13:10→20:22)
[2025-05-06 19:06] LABS: MANUAL DIFF FLAG NO
[2025-05-06 19:08] LABS: Hematocrit 37.9 % (37.0-47.0); Hemoglobin 12.4 g/dl (12.0-16.0); Imm Gran Abs Auto 0.10 X10*3/uL (0.00-0.03); Imm Gran Pct Auto 0.9 % (0.0-0.4); Lymphocytes Absolute Auto 1.8 X10*3/uL (1.2-4.9); Mean Corpuscular HGB Conc 32.7 g/dl (31.0-35.0); Mean Corpuscular Hemoglobin 32.2 pg (27.0-33.0); Mean Corpuscular Volume 98.4 fL (80.0-98.0); NRBC Abs Auto 0.000 X10*3/uL (0.0-0.012); NRBC Pct Auto 0.0 /100WBC (0.0-0.2); Platelet Count 220 X10*3/uL (160-400); Red Blood Count 3.85 X10*6/uL (4.20-5.50); White Blood Count 11.6 X10*3/uL (4.8-10.8)
[2025-05-06 19:27] LABS: Alanine Aminotransferase 249 U/L (0-31); Albumin Level 3.9 g/dL (3.5-5.0); Alkaline Phosphatase 260 U/L (39-117); Anion Gap 12 (12-20); Aspartate Amino Transferase 185 U/L (5-31); Blood Urea Nitrogen 21 mg/dL (9-16); Calcium 8.8 mg/dL (8.4-10.2); Carbon Dioxide 27 mmol/L (22-29); Chloride 104 mmol/L (96-108); Creatinine Clr Calc Pharmacy 38.3; Estimated Glomerular Filt Rate 53; Potassium 4.1 mmol/L (3.3-5.1); Sodium 139 mmol/L (135-145); Total Protein 6.7 g/dL (6.5-8.0)
[2025-05-06 20:00] VITALS: BP 133/70; PULSE 66; RESP 18; TEMP 36.6; O2SAT 95
--- NOTE | 2025-05-07 | ECG_ITS ---
Test Reason : bradycardia Blood Pressure : */* mmHG Vent. Rate : 76 BPM Atrial Rate : 76 BPM P-R Int : 120 ms QRS Dur : 82 ms QT Int : 428 ms P-R-T Axes : 73 50 98 degrees QTcB Int : 481 ms Sinus rhythm with frequent Premature ventricular complexes in a pattern of bigeminy Left ventricular hypertrophy with repolarization abnormality ( Sokolow-Perdue , Romhilt-Arnold ) Abnormal ECG When compared with ECG of 29-Mar-2025 10:20, No significant change was found Referred By: Yvon Ha Electronically Signed By: TALON BERGMAN MD
[2025-05-07 08:00] VITALS: BP 162/58; PULSE 42; RESP 14; TEMP 2.5; TEMP 36.5; O2SAT 96
[2025-05-07 08:14] VITALS: BP 162/58
--- NOTE | 2025-05-07 12:00 | PM.CNCAR ---
History of Present Illness History of Present Illness Date of Service: 05/07/25 Chief complaint: Bradycardia Narrative: [age] female currently in the inpatient psych unit for depression. We have been asked to see her for bradycardia. The patient does not recall having any history of bradycardia and was following with Cardiology in [place]. She said she had heart attack many years ago. She is denying any chest discomfort or shortness of breath in her day-to-day life. No dizziness or lightheadedness. No syncopal episodes. [facility] Social History Social History Household Members: None Housing: House Do you presently have visiting nurse or other home services: No Comment: 5 minute checks Patient Tobacco Use Status: Current everyday Tobacco user Tobacco use type: Cigarette Smoked in Last 30 Days: Yes e-Cigarette/Vaping Use: Never Used Patient Interested in Nicotine Replacement: No Patient Given Instructions on How to Stop Smoking: No Second Hand Smoke Exposure: No Currently Displaying Signs/Symptoms of Drug Intoxication Withdrawal: No Have you been hit, kicked, punched, or otherwise hurt by someone within the past year? If so, by whom?: No Do you feel safe in your current relationship?: No Is there a partner from a previous relationship who is making you feel unsafe now?: No Are you made to feel afraid or neglected: No Spiritual Healthcare Practices: Visit yazidism intermittently Advance Directives: No Advance Directives Information Provided: Yes Advance Directives on File: No Do you have thoughts of harming others: None Do you have a plan to hurt others: No Plan Recently lost weight without trying: No Nutrition Risks: No Nutritional Risk Patient : No : No Poor oral hygiene: No service: No Sexual orientation: Straight/Heterosexual Meds Allergies Allergy/AdvReac Type Severity Reaction Status Date / Time codeine Allergy Intermediate hives Verified 03/28/25 21:43 NSAIDS (Non-Steroidal AdvReac Severe gi bleed Verified 04/05/25 10:40 Anti-Inflamma Active Medications: Current Medications Acetaminophen (Acetaminophen 325 Mg Tablet) 650 mg PO Q6H PRN PRN Reason: Pain 1-10 or headache Last Admin: 05/07/25 08:13 Dose: 650 mg Acetaminophen/Butalbital/Caffeine (Butalb/Acetamin/Caff 50/325/40 Tablet) 1 tab PO BID PRN PRN Reason: Pain, Moderate(Pain Scale 4-6) Last Admin: 05/06/25 20:22 Dose: 1 tab Al Hydroxide/Mg Hydroxide (Magnesium Hydrox/Alum Hydrox 30 Ml Oral.Susp) 30 ml PO Q6H PRN PRN Reason: Heartburn/Nausea Amlodipine Besylate (Amlodipine Besylate 5 Mg Tablet) 5 mg PO DAILY [facility]; Protocol Last Admin: 05/07/25 08:14 Dose: 5 mg Aripiprazole (Aripiprazole 15 Mg Tablet) 15 mg PO DAILY [facility] Last Admin: 05/07/25 08:14 Dose: 15 mg Aripiprazole (Aripiprazole 5 Mg Tablet) 5 mg PO DAILY@1600 [facility] Last Admin: 05/06/25 16:34 Dose: 5 mg Atorvastatin Calcium (Atorvastatin Calcium 80 Mg Tablet) 80 mg PO DAILY [facility] Last Admin: 05/07/25 08:14 Dose: 80 mg Donepezil HCl (Donepezil Hcl 5 Mg Tablet) 5 mg PO BEDTIME [facility] Last Admin: 05/06/25 20:22 Dose: 5 mg Magnesium Hydroxide (Milk Of Magnesia 30 Ml Oral.Susp) 30 ml PO DAILY PRN PRN Reason: Constipation Methimazole (Methimazole 10 Mg Tablet) 10 mg PO DAILY [facility] Last Admin: 05/07/25 08:14 Dose: 10 mg Mirtazapine (Mirtazapine 15 Mg Tablet) 15 mg PO BEDTIME [facility] Last Admin: 05/06/25 20:23 Dose: 15 mg Nicotine Polacrilex (Nicotine Polacrilex 2 Mg Gum) 4 mg BUCCAL Q2H PRN PRN Reason: Nicotine Cravings Olanzapine (Olanzapine 5 Mg Tablet) 5 mg PO TID PRN PRN Reason: agitation Last Admin: 05/02/25 15:15 Dose: 5 mg Omeprazole (Omeprazole 20 Mg Capsule.Dr) 20 mg PO DAILY@0630 [facility] Last Admin: 05/07/25 05:37 Dose: 20 mg Spironolactone (Spironolactone 25 Mg Tablet) 25 mg PO DAILY [facility]; Protocol Last Admin: 05/07/25 08:14 Dose: 25 mg Trazodone HCl (Trazodone Hcl 25 Mg Halftab) 25 mg PO BEDTIME MRX1 PRN PRN Reason: Insomnia Last Admin: 04/26/25 21:20 Dose: 25 mg Trazodone HCl (Trazodone Hcl 25 Mg Halftab) 12.5 mg PO Q6H PRN PRN Reason: anxiety/agitation Home Medications ?Medication ?Instructions ?Recorded ?Confirmed ?Last Taken ?Type alprazolam 1 mg tablet 1 mg PO TID 03/29/25 03/29/25 03/28/25 18:16 History esomeprazole magnesium 20 mg 20 mg PO DAILY 03/29/25 03/29/25 Unknown History capsule,delayed release (Nexium) metoprolol succinate 25 mg 25 mg PO DAILY 03/29/25 03/29/25 Unknown History tablet,extended release 24 hr (Toprol XL) rosuvastatin 40 mg tablet (Crestor) 40 mg PO DAILY 03/29/25 03/29/25 Unknown History spironolactone 25 mg tablet 25 mg PO DAILY 03/29/25 03/29/25 Unknown History venlafaxine 75 mg tablet,extended 75 mg PO QAM 03/29/25 03/29/25 Unknown History release 24 hr Physical Exam Vital Signs: Vital Signs: Last Vital Signs Temp 36.5 F L 05/07/25 08:00 Pulse 42 L 05/07/25 08:00 Resp 14 05/07/25 08:00 BP 162/58 H 05/07/25 08:14 Pulse Ox 96 05/07/25 08:00 O2 Del Method Room Air 05/07/25 08:00 BMI result Body Mass Index 17.1 GENERAL APPEARANCE: in no acute distress, pleasant. NECK: no carotid bruit, no jugular venous distention. SKIN: no suspicious lesions, warm and dry. HEART: no murmurs, bradycardia, skipped heartbeats. LUNGS: clear to auscultation bilaterally. ABDOMEN: soft, nontender. EXTREMITIES: no edema. PERIPHERAL PULSES: equal. NEUROLOGIC: No gross deficits, AAO X 3 Objective Labs and Meds 05/06/25 18:30 05/06/25 18:30 Lab results: Laboratory Results - last 24 hr 05/06/25 18:30 WBC 11.6 H RBC 3.85 L Hgb 12.4 Hct 37.9 MCV 98.4 H MCH 32.2 MCHC 32.7 RDW 13.2 Plt Count 220 D MPV 11.4 Immature Gran % (Auto) 0.9 H Neut % (Auto) 59.8 Lymph % (Auto) 15.5 L Sebastian % (Auto) 7.9 Eos % (Auto) 15.0 H Baso % (Auto) 0.9 Lymph # (Auto) 1.8 Sebastian # (Auto) 0.9 Eos # (Auto) 1.7 H Baso # (Auto) 0.1 Abs Immat Gran (auto) 0.10 H Absolute Neuts (auto) 6.9 Absolute Nucleated RBC 0.000 Nucleated RBC % (auto) 0.0 Sodium 139 Potassium 4.1 Chloride 104 Carbon Dioxide 27 Anion Gap 12 BUN 21 H Creatinine 1.02 Estim Creat Clear Calc 38.3 Estimated GFR 53 Random Glucose 99 Calcium 8.8 D Total Bilirubin 0.3 AST 185 H ALT 249 H Alkaline Phosphatase 260 H Total Protein 6.7 Albumin 3.9 Assessment and Plan (1) Asymptomatic bradycardia: Status: Acute Plan Pleasant 70 year female with reported history of coronary disease who is currently inpatient due to depression. She has been noticed to be bradycardic. During exam her heart rate was slow but even with simple exercise like leg raises in the bed her heart rate responded appropriately and went up. She has no symptoms currently. Agree with stopping the Toprol-XL. Blood pressure is elevated and should be monitor closely and if she has continued elevation then low-dose amlodipine 2.5 mg daily can be started. Please check EKGs to document the rhythm. Previously she had sinus rhythm with PVCs. Thank you for allowing me to participate in the care of your patient. Please feel free to contact me if you have any questions. Procedures Date of Service Date of Service: 05/07/25
--- NOTE | 2025-05-07 17:54 | HO.PSYCHPN ---
Subjective Subjective Date of Service: 05/07/25 Reason For Visit: Bradycardia Interim History: Met with patient; discussed with team; chart reviewed Checked vitals and patient hypertensive with intermittent bradycardia however patient says she is asymptomatic Patient says she is not bad though spending most of the day in bed keeping to herself. Denies any SI or HI or depression Mental Status Exam Mental Status Exam Narrative: Appearance: wearing hospital gown, thin, very poor hygiene, , in NAD Behavior: superficially cooperative Psychomotor: Some psychomotor retardation Speech: mostly clear, normal rate/rhythm/volume, spontaneous TP: Goal directed; can be circumstantial TC: wanting to go home Mood: not bad Affect: congruent SI: denies HI: denies VH/AH: no signs Delusions: no overt delusional content but noted confabulation. Insight/judgment: impaired x 2. memory/cog: alert, oriented to place, month and year but not to situation. Significant difficulty remembering events that led to this admission. MOCA Diagnostics Vital Signs (24Hr): Vital Signs - 24 hr 05/06/25 20:00 05/07/25 08:00 05/07/25 08:14 Temperature 97.9 F 36.5 F L Pulse Rate 66 42 L Respiratory Rate 18 14 Blood Pressure 133/70 162/58 H 162/58 H Pulse Oximetry 95 96 Oxygen Delivery Method Room Air Room Air 05/07/25 08:14 Temperature Pulse Rate Respiratory Rate Blood Pressure 162/58 H Pulse Oximetry Oxygen Delivery Method BMI result Body Mass Index 17.1 Labs 05/06/25 18:30 05/06/25 18:30 Labs: Laboratory Results - last 48 hr 05/06/25 18:30 WBC 11.6 H RBC 3.85 L Hgb 12.4 Hct 37.9 MCV 98.4 H MCH 32.2 MCHC 32.7 RDW 13.2 Plt Count 220 D MPV 11.4 Immature Gran % (Auto) 0.9 H Neut % (Auto) 59.8 Lymph % (Auto) 15.5 L Jenkins % (Auto) 7.9 Eos % (Auto) 15.0 H Baso % (Auto) 0.9 Lymph # (Auto) 1.8 Jenkins # (Auto) 0.9 Eos # (Auto) 1.7 H Baso # (Auto) 0.1 Abs Immat Gran (auto) 0.10 H Absolute Neuts (auto) 6.9 Absolute Nucleated RBC 0.000 Nucleated RBC % (auto) 0.0 Sodium 139 Potassium 4.1 Chloride 104 Carbon Dioxide 27 Anion Gap 12 BUN 21 H Creatinine 1.02 Estim Creat Clear Calc 38.3 Estimated GFR 53 Random Glucose 99 Calcium 8.8 D Total Bilirubin 0.3 AST 185 H ALT 249 H Alkaline Phosphatase 260 H Total Protein 6.7 Albumin 3.9 Imaging Radiology Impressions: ITS Impressions Thyroid Ultrasound 04/03/25 11:58 IMPRESSION: Heterogeneous hypervascular thyroid gland. No discrete nodules are identified. ACR TI-RADS Guidelines TR1 (0 points): Benign. No follow-up or biopsy required TR2 (2 points): Not Suspicious. No biopsy or follow up indicated TR3 (3 points): Mildly Suspicious. FNA if >= 2.5 cm, Follow if >= 1.5 cm TR4 (4-6 points): Moderately Suspicious. FNA if >= 1.5 cm, Follow if >= 1.0 cm TR5 (>=7 points): Highly Suspicious. FNA if >= 1.0 cm, Follow if >= 0.5 cm Electronically signed by: García Young MD 04/04/2025 07:08 AM EDT RP Abdomen X-Ray 04/05/25 11:25 IMPRESSION: No radiopaque foreign body is identified. Electronically signed by: García Young MD 04/05/2025 11:45 AM EDT RP Chest X-Ray 04/05/25 11:25 IMPRESSION: Clear lungs. No radiopaque foreign body is identified. Electronically signed by: García Young MD 04/05/2025 11:46 AM EDT RP Skull X-Ray 04/05/25 11:25 IMPRESSION: No radiopaque foreign body is identified. Electronically signed by: García Young MD 04/05/2025 11:47 AM EDT RP Brain MRI 04/05/25 11:38 IMPRESSION: 1. No evidence of intracranial hemorrhage, acute infarction, mass effect, or edema. 2. Age advanced cerebral and cerebellar volume loss. Please refer to the above, and the full neuroquantitative report included with the examination. 3. Moderate to severe changes of small vessel ischemia. 4. Crib d'etat appearance of the basal ganglia suggestive of sequela of chronic hypertension. Electronically signed by: Ruddy Moreau MD 04/18/2025 08:28 AM EDT Medications Medications Current Medications Acetaminophen (Acetaminophen 325 Mg Tablet) 650 mg PO Q6H PRN PRN Reason: Pain 1-10 or headache Last Admin: 05/07/25 08:13 Dose: 650 mg Acetaminophen/Butalbital/Caffeine (Butalb/Acetamin/Caff 50/325/40 Tablet) 1 tab PO BID PRN PRN Reason: Pain, Moderate(Pain Scale 4-6) Last Admin: 05/06/25 20:22 Dose: 1 tab Al Hydroxide/Mg Hydroxide (Magnesium Hydrox/Alum Hydrox 30 Ml Oral.Susp) 30 ml PO Q6H PRN PRN Reason: Heartburn/Nausea Amlodipine Besylate (Amlodipine Besylate 5 Mg Tablet) 5 mg PO DAILY [facility]; Protocol Last Admin: 05/07/25 08:14 Dose: 5 mg Aripiprazole (Aripiprazole 15 Mg Tablet) 15 mg PO DAILY [facility] Last Admin: 05/07/25 08:14 Dose: 15 mg Aripiprazole (Aripiprazole 5 Mg Tablet) 5 mg PO DAILY@1600 [facility] Last Admin: 05/07/25 16:27 Dose: 5 mg Atorvastatin Calcium (Atorvastatin Calcium 80 Mg Tablet) 80 mg PO DAILY [facility] Last Admin: 05/07/25 08:14 Dose: 80 mg Donepezil HCl (Donepezil Hcl 5 Mg Tablet) 5 mg PO BEDTIME [facility] Last Admin: 05/06/25 20:22 Dose: 5 mg Magnesium Hydroxide (Milk Of Magnesia 30 Ml Oral.Susp) 30 ml PO DAILY PRN PRN Reason: Constipation Methimazole (Methimazole 10 Mg Tablet) 10 mg PO DAILY [facility] Last Admin: 05/07/25 08:14 Dose: 10 mg Mirtazapine (Mirtazapine 15 Mg Tablet) 15 mg PO BEDTIME [facility] Last Admin: 05/06/25 20:23 Dose: 15 mg Nicotine Polacrilex (Nicotine Polacrilex 2 Mg Gum) 4 mg BUCCAL Q2H PRN PRN Reason: Nicotine Cravings Olanzapine (Olanzapine 5 Mg Tablet) 5 mg PO TID PRN PRN Reason: agitation Last Admin: 05/02/25 15:15 Dose: 5 mg Omeprazole (Omeprazole 20 Mg Capsule.Dr) 20 mg PO DAILY@0630 ROGELIO Last Admin: 05/07/25 05:37 Dose: 20 mg Spironolactone (Spironolactone 25 Mg Tablet) 25 mg PO DAILY ROGELIO; Protocol Last Admin: 05/07/25 08:14 Dose: 25 mg Trazodone HCl (Trazodone Hcl 25 Mg Halftab) 25 mg PO BEDTIME MRX1 PRN PRN Reason: Insomnia Last Admin: 04/26/25 21:20 Dose: 25 mg Trazodone HCl (Trazodone Hcl 25 Mg Halftab) 12.5 mg PO Q6H PRN PRN Reason: anxiety/agitation Allergies Allergies Allergy/AdvReac Type Severity Reaction Status Date / Time codeine Allergy Intermediate hives Verified 03/28/25 21:43 NSAIDS (Non-Steroidal AdvReac Severe gi bleed Verified 04/05/25 10:40 Anti-Inflamma Assessment & Plan Assessment & Plan (1) MDD (major depressive disorder), recurrent episode, moderate: Status: Acute Code(s): F33.1 - Major depressive disorder, recurrent, moderate (2) Major neurocognitive disorder, due to another medical condition, with behavioral disturbance, severe: Status: Acute Code(s): F02.C18 - Dementia in other diseases classified elsewhere, severe, with other behavioral disturbance (3) Asymptomatic bradycardia: Status: Acute Code(s): R00.1 - Bradycardia, unspecified (4) Graves disease: Status: Acute Code(s): E05.00 - Thyrotoxicosis with diffuse goiter without thyrotoxic crisis or storm Plan Plan Mrs. Martinez is a 70 year-old woman who was initially brought to [facility] due to weakness, profound lethargy and inability to care for herself. While in the ED, pt presented as agitated, combative and reported SI. Daughter reports pt has been struggling to care for herself (house without hot water, in condemnable condition and pt has not showered in several months). Pt is not able to recall events leading to this admission, despite the fact that she is oriented to month, year and place. We discussed risks, benefits and alternative treatment options. Will lower dose of xanax as pt this morning was more somnolent and lethargic although she had not received xanax. Lowered to 0.5mg po TID. continue effexor er 75mg po daily. Pt noted to have BP elevated but this was one point of care- will continue to monitor. No signs of benzo withdrawal. Pending MOCA/ACL. Will also check B12 (note that although no anemia, MCV was high). Repeat of CMP shows some degree of dehydration (elevated BUN from 14 to 23)- encourage fluids. PLAN 04/04 LFTs trending up, GI following, denies any abdominal pain, no vomiting, afebrile. pt confused as to why she is here, somewhat suspicious about her children wanting to leave her here. Will hold on starting medications until LFTs and bilirubin normalizes. Pending US of gallbladder today. 04/05 pt forgetful from day to day, confabulation with often seems more like blaming her children for doing things behind her back and thinks they are lying when comic writer explains concern in terms of memory/cog impairments. 04/06 LFTs trending down. Will start abilify for mood/suspiciousness. 04/08 continue tx. 04/09: Continue current regimen and plans. Trial of Fioricet b.i.d. PRN 04/11 increase abilify for mood. reading of MRI with neuroquant- still pending. CAUTION WITH ACETAMINOPHEN AND LFTS. ALSO CAUTION WITH NSAID- not H&H down since admission. She was started on Tapazole 10mg po daily for graves disease- newly dx here. HIDA scan for abdominal pain not completed due to pt declining- may need to reorder if pt presents with abdominal pain or again LFTs elevation. 04/12: stable, demented. asking about discharge home when awaiting placement. MRI c neuroquant pending. stable presentation. continue current mgmt for now. 04/13: poor sleep due to disruptive peer. resting today. no request for discharge. no behavioral issues. continue current mgmt. 04/14: slept 5 hours. somewhat hypomanic today, circumstantial and moderately disorganized. agreeable to stay for the time being, per SW. increase abilify to 15 mg daily for mood stability. call placed to radiology for read on MRI brain done 04/05/25. 04/15: head MRI read remains absent. stable presentation. resting today, not activated or irritable. continue current mgmt. 04/16: stable presentation. remains a bit more organized and less labile than prior, since increase in abilify dosing. also a bit more tired. T/C moving abilify to HS to prevent daytime sedation. 04/17: lying in bed, calm. does not mention agitation around midnight last night. no complaints or requests. continue current mgmt. continues more organized and less labile. 04/18: MRI brain c/w AD and vascular dementia. start donepezil. remains less labile and irritable since abilify dosing increase. awaiting placement. continue current mgmt. 04/19: appears to be endorsing AH and expressing paranoia re staff today. increase abilify once again, this time with added dose in the evening. otherwise continue current mgmt. 04/20/25: Patient slept for 8 hours, was medication compliant. Denied side effects. However per nursing staff, patient was struggle with taking medication last night. She has sundown symptoms, more irritable in the afternoon and evening. During conversation with this provider, patient reports that she feel irritable but denies anxiety or depression. She said medications do not do anything good. Sucks being in here. Then she is more irritable when we asked about safety concern questions. it Is a bunch of bullshit, I am done talking . However she continued engaged in conversation when this provider review with her regarding Abilify scheduled time of the afternoon dose. She is working on menu at the same time. Per nursing, patient struggle with taking Abilify in the afternoon yesterday, after he she has sundown symptoms. Therefore I will change to 1600 so nursing staff can offer her at around 3 PM. Does not make any paranoid statements. 04/20: tired, resting in the morning. no paranoid delusions expressed. court paperwork completed for affirming HCP. continue current mgmt. 04/22: as for yesterday. reportedly c/o chills, shivering overnight, denies today. afebrile. continue current mgmt. 04/23: continue current tx 04/24: continue current tx 04/25: stable, continue current mgmt. 04/26: no change in presentation. HCP affirmation hearing tomorrow. continue current mgmt. 04/27: no change in presentation. HCP affirmation hearing today. continue current mgmt. 04/28 continue current medications. 04/29 continue tx. 04/30: continue current management and treatment plan. 05/01: continue current management and treatment plan. 05/02: Continue current management and treatment plan. 05/03 continue tx. 05/04 continue tx 05/05 continue tx. 05/06 continue tx. . 05/07 continue treatment plan Patient educated on: diagnosis and medical condition Informed Consent: understands Reason for continued inpatient stay Substantial Risk for: inability to function Time Spent With Patient Time: Total time managing care of this patient today ____ minutes.
[2025-05-07 20:00] VITALS: BP 145/79; PULSE 41; RESP 16; TEMP 36.1; O2SAT 97
[2025-05-07] MEDS: Butalb/Acetamin/Caff 50/325/40 TABLET 1 TAB PO (20:31)
[2025-05-08 08:00] VITALS: BP 121/72; PULSE 61; RESP 16; TEMP 2.5; TEMP 36.5; O2SAT 97
[2025-05-08 08:20] VITALS: BP 121/72
[2025-05-08 08:21] VITALS: BP 121/72
--- NOTE | 2025-05-08 17:14 | P.PNPSI_ITS ---
Subjective Subjective Date of Service: 05/08/25 Reason For Visit: Bradycardia Interim History: Met with patient; discussed with team No change in presentation. Says she is just chilling out Mental Status Exam Mental Status Exam Narrative: Appearance: wearing hospital gown, thin, very poor hygiene, , in NAD Behavior: superficially cooperative; isolative Psychomotor: Some psychomotor retardation Speech: mostly clear, normal rate/rhythm/volume, spontaneous TP: Goal directed; can be circumstantial TC: wanting to go home Mood: just chilling out Affect: congruent SI: denies HI: denies VH/AH: no signs Delusions: no overt delusional content but noted confabulation. Insight/judgment: impaired x 2. memory/cog: alert, oriented to place, month and year but not to situation. Significant difficulty remembering events that led to this admission. MOCA Diagnostics Vital Signs (24Hr): Vital Signs - 24 hr 05/07/25 20:00 05/08/25 08:00 05/08/25 08:20 Temperature 97 F 36.5 F L Pulse Rate 41 L 61 Respiratory Rate 16 16 Blood Pressure 145/79 H 121/72 121/72 Pulse Oximetry 97 97 Oxygen Delivery Method Room Air Room Air 05/08/25 08:21 Temperature Pulse Rate Respiratory Rate Blood Pressure 121/72 Pulse Oximetry Oxygen Delivery Method BMI result Body Mass Index 17.1 Labs 05/06/25 18:30 05/06/25 18:30 Labs: Laboratory Results - last 48 hr 05/06/25 18:30 WBC 11.6 H RBC 3.85 L Hgb 12.4 Hct 37.9 MCV 98.4 H MCH 32.2 MCHC 32.7 RDW 13.2 Plt Count 220 D MPV 11.4 Immature Gran % (Auto) 0.9 H Neut % (Auto) 59.8 Lymph % (Auto) 15.5 L [place] % (Auto) 7.9 Eos % (Auto) 15.0 H Baso % (Auto) 0.9 Lymph # (Auto) 1.8 [place] # (Auto) 0.9 Eos # (Auto) 1.7 H Baso # (Auto) 0.1 Abs Immat Gran (auto) 0.10 H Absolute Neuts (auto) 6.9 Absolute Nucleated RBC 0.000 Nucleated RBC % (auto) 0.0 Sodium 139 Potassium 4.1 Chloride 104 Carbon Dioxide 27 Anion Gap 12 BUN 21 H Creatinine 1.02 Estim Creat Clear Calc 38.3 Estimated GFR 53 Random Glucose 99 Calcium 8.8 D Total Bilirubin 0.3 AST 185 H ALT 249 H Alkaline Phosphatase 260 H Total Protein 6.7 Albumin 3.9 Imaging Radiology Impressions: ITS Impressions Thyroid Ultrasound 04/03/25 11:58 IMPRESSION: Heterogeneous hypervascular thyroid gland. No discrete nodules are identified. ACR TI-RADS Guidelines TR1 (0 points): Benign. No follow-up or biopsy required TR2 (2 points): Not Suspicious. No biopsy or follow up indicated TR3 (3 points): Mildly Suspicious. FNA if >= 2.5 cm, Follow if >= 1.5 cm TR4 (4-6 points): Moderately Suspicious. FNA if >= 1.5 cm, Follow if >= 1.0 cm TR5 (>=7 points): Highly Suspicious. FNA if >= 1.0 cm, Follow if >= 0.5 cm Electronically signed by: García Young MD 04/04/2025 07:08 AM EDT RP Abdomen X-Ray 04/05/25 11:25 IMPRESSION: No radiopaque foreign body is identified. Electronically signed by: García Young MD 04/05/2025 11:45 AM EDT RP Chest X-Ray 04/05/25 11:25 IMPRESSION: Clear lungs. No radiopaque foreign body is identified. Electronically signed by: García Young MD 04/05/2025 11:46 AM EDT RP Skull X-Ray 04/05/25 11:25 IMPRESSION: No radiopaque foreign body is identified. Electronically signed by: García Young MD 04/05/2025 11:47 AM EDT RP Brain MRI 04/05/25 11:38 IMPRESSION: 1. No evidence of intracranial hemorrhage, acute infarction, mass effect, or edema. 2. Age advanced cerebral and cerebellar volume loss. Please refer to the above, and the full neuroquantitative report included with the examination. 3. Moderate to severe changes of small vessel ischemia. 4. Crib d'etat appearance of the basal ganglia suggestive of sequela of chronic hypertension. Electronically signed by: Ruddy Moreau MD 04/18/2025 08:28 AM EDT RP Medications Medications Current Medications Acetaminophen (Acetaminophen 325 Mg Tablet) 650 mg PO Q6H PRN PRN Reason: Pain 1-10 or headache Last Admin: 05/08/25 16:43 Dose: 650 mg Acetaminophen/Butalbital/Caffeine (Butalb/Acetamin/Caff 50/325/40 Tablet) 1 tab PO BID PRN PRN Reason: Pain, Moderate(Pain Scale 4-6) Last Admin: 05/07/25 20:31 Dose: 1 tab Al Hydroxide/Mg Hydroxide (Magnesium Hydrox/Alum Hydrox 30 Ml Oral.Susp) 30 ml PO Q6H PRN PRN Reason: Heartburn/Nausea Amlodipine Besylate (Amlodipine Besylate 5 Mg Tablet) 5 mg PO DAILY [facility]; Protocol Last Admin: 05/08/25 08:21 Dose: 5 mg Aripiprazole (Aripiprazole 15 Mg Tablet) 15 mg PO DAILY [facility] Last Admin: 05/08/25 08:21 Dose: 15 mg Aripiprazole (Aripiprazole 5 Mg Tablet) 5 mg PO DAILY@1600 [facility] Last Admin: 05/08/25 16:41 Dose: 5 mg Atorvastatin Calcium (Atorvastatin Calcium 80 Mg Tablet) 80 mg PO DAILY [facility] Last Admin: 05/08/25 08:20 Dose: 80 mg Donepezil HCl (Donepezil Hcl 5 Mg Tablet) 5 mg PO BEDTIME ROGELIO Last Admin: 05/07/25 20:27 Dose: 5 mg Magnesium Hydroxide (Milk Of Magnesia 30 Ml Oral.Susp) 30 ml PO DAILY PRN PRN Reason: Constipation Methimazole (Methimazole 10 Mg Tablet) 10 mg PO DAILY [facility] Last Admin: 05/08/25 08:21 Dose: 10 mg Mirtazapine (Mirtazapine 15 Mg Tablet) 15 mg PO BEDTIME [facility] Last Admin: 05/07/25 20:27 Dose: 15 mg Nicotine Polacrilex (Nicotine Polacrilex 2 Mg Gum) 4 mg BUCCAL Q2H PRN PRN Reason: Nicotine Cravings Olanzapine (Olanzapine 5 Mg Tablet) 5 mg PO TID PRN PRN Reason: agitation Last Admin: 05/02/25 15:15 Dose: 5 mg Omeprazole (Omeprazole 20 Mg Capsule.Dr) 20 mg PO DAILY@0630 [facility] Last Admin: 05/08/25 06:48 Dose: 20 mg Spironolactone (Spironolactone 25 Mg Tablet) 25 mg PO DAILY [facility]; Protocol Last Admin: 05/08/25 08:20 Dose: 25 mg Trazodone HCl (Trazodone Hcl 25 Mg Halftab) 25 mg PO BEDTIME MRX1 PRN PRN Reason: Insomnia Last Admin: 04/26/25 21:20 Dose: 25 mg Trazodone HCl (Trazodone Hcl 25 Mg Halftab) 12.5 mg PO Q6H PRN PRN Reason: anxiety/agitation Allergies Allergies Allergy/AdvReac Type Severity Reaction Status Date / Time codeine Allergy Intermediate hives Verified 03/28/25 21:43 NSAIDS (Non-Steroidal AdvReac Severe gi bleed Verified 04/05/25 10:40 Anti-Inflamma Assessment & Plan Assessment & Plan (1) Asymptomatic bradycardia: Status: Acute Code(s): R00.1 - Bradycardia, unspecified (2) MDD (major depressive disorder), recurrent episode, moderate: Status: Acute Code(s): F33.1 - Major depressive disorder, recurrent, moderate (3) Cognitive impairment: Status: Acute Code(s): R41.89 - Other symptoms and signs involving cognitive functions and awareness (4) HTN (hypertension): Status: Acute Code(s): I10 - Essential (primary) hypertension (5) Graves disease: Status: Acute Code(s): E05.00 - Thyrotoxicosis with diffuse goiter without thyrotoxic crisis or storm Plan Mrs. Martinez is a 70 year-old woman who was initially brought to [facility] due to weakness, profound lethargy and inability to care for herself. While in the ED, pt presented as agitated, combative and reported SI. Daughter reports pt has been struggling to care for herself (house without hot water, in condemnable condition and pt has not showered in several months). Pt is not able to recall events leading to this admission, despite the fact that she is oriented to month, year and place. We discussed risks, benefits and alternative treatment options. Will lower dose of xanax as pt this morning was more somnolent and lethargic although she had not received xanax. Lowered to 0.5mg po TID. continue effexor er 75mg po daily. Pt noted to have BP elevated but this was one point of care- will continue to monitor. No signs of benzo withdrawal. Pending MOCA/ACL. Will also check B12 (note that although no anemia, MCV was high). Repeat of CMP shows some degree of dehydration (elevated BUN from 14 to 23)- encourage fluids. PLAN 04/04 LFTs trending up, GI following, denies any abdominal pain, no vomiting, afebrile. pt confused as to why she is here, somewhat suspicious about her children wanting to leave her here. Will hold on starting medications until LFTs and bilirubin normalizes. Pending US of gallbladder today. 04/05 pt forgetful from day to day, confabulation with often seems more like blaming her children for doing things behind her back and thinks they are lying when advertising copywriter explains concern in terms of memory/cog impairments. 04/06 LFTs trending down. Will start abilify for mood/suspiciousness. 04/08 continue tx. 04/09: Continue current regimen and plans. Trial of Fioricet b.i.d. PRN 04/11 increase abilify for mood. reading of MRI with neuroquant- still pending. CAUTION WITH ACETAMINOPHEN AND LFTS. ALSO CAUTION WITH NSAID- not H&H down since admission. She was started on Tapazole 10mg po daily for graves disease- newly dx here. HIDA scan for abdominal pain not completed due to pt declining- may need to reorder if pt presents with abdominal pain or again LFTs elevation. 04/12: stable, demented. asking about discharge home when awaiting placement. MRI c neuroquant pending. stable presentation. continue current mgmt for now. 04/13: poor sleep due to disruptive peer. resting today. no request for discharge. no behavioral issues. continue current mgmt. 04/14: slept 5 hours. somewhat hypomanic today, circumstantial and moderately disorganized. agreeable to stay for the time being, per SW. increase abilify to 15 mg daily for mood stability. call placed to radiology for read on MRI brain done 04/05/25. 04/15: head MRI read remains absent. stable presentation. resting today, not activated or irritable. continue current mgmt. 04/16: stable presentation. remains a bit more organized and less labile than prior, since increase in abilify dosing. also a bit more tired. T/C moving abilify to HS to prevent daytime sedation. 04/17: lying in bed, calm. does not mention agitation around midnight last night. no complaints or requests. continue current mgmt. continues more organized and less labile. 04/18: MRI brain c/w AD and vascular dementia. start donepezil. remains less labile and irritable since abilify dosing increase. awaiting placement. continue current mgmt. 04/19: appears to be endorsing AH and expressing paranoia re staff today. increase abilify once again, this time with added dose in the evening. otherwise continue current mgmt. 04/20/25: Patient slept for 8 hours, was medication compliant. Denied side effects. However per nursing staff, patient was struggle with taking medication last night. She has sundown symptoms, more irritable in the afternoon and evening. During conversation with this provider, patient reports that she feel irritable but denies anxiety or depression. She said medications do not do anything good. Sucks being in here. Then she is more irritable when we asked about safety concern questions. it Is a bunch of bullshit, I am done talking . However she continued engaged in conversation when this provider review with her regarding Abilify scheduled time of the afternoon dose. She is working on menu at the same time. Per nursing, patient struggle with taking Abilify in the afternoon yesterday, after he she has sundown symptoms. Therefore I will change to 1600 so nursing staff can offer her at around 3 PM. Does not make any paranoid statements. 04/20: tired, resting in the morning. no paranoid delusions expressed. court paperwork completed for affirming HCP. continue current mgmt. 04/22: as for yesterday. reportedly c/o chills, shivering overnight, denies today. afebrile. continue current mgmt. 04/23: continue current tx 04/24: continue current tx 04/25: stable, continue current mgmt. 04/26: no change in presentation. HCP affirmation hearing tomorrow. continue current mgmt. 04/27: no change in presentation. HCP affirmation hearing today. continue current mgmt. 04/28 continue current medications. 04/29 continue tx. 04/30: continue current management and treatment plan. 05/01: continue current management and treatment plan. 05/02: Continue current management and treatment plan. 05/03 continue tx. 05/04 continue tx 05/05 continue tx. 05/06 continue tx. 05/07 continue current treatment plan 05/08 continue current treatment plan Reason for continued inpatient stay Substantial Risk for: inability to function Time Spent With Patient Time: Total time managing care of this patient today ____ minutes.
[2025-05-08 20:00] VITALS: BP 124/72; PULSE 64; RESP 16; TEMP 36.5; O2SAT 95
[2025-05-08] MEDS: Butalb/Acetamin/Caff 50/325/40 TABLET 1 TAB PO (21:23)
--- NOTE | 2025-05-09 07:47 | P.PNPSI_ITS ---
Subjective Subjective Date of Service: 05/09/25 Reason For Visit: Bradycardia Subjective Notes: Conditional Voluntary Healthcare Proxy: Yes Interim History: Pt slept through the night. She denies any complaints. She has been mostly in her room, does not like attending groups, awaiting placement. pending consult for bradycardia. Review of Systems Review of Systems Denied Yes all other systems are reviewed and are negative Mental Status Exam Mental Status Exam Narrative: Appearance: wearing hospital gown, thin, very poor hygiene, , in NAD Behavior: superficially cooperative; isolative Psychomotor: Some psychomotor retardation Speech: mostly clear, normal rate/rhythm/volume, spontaneous TP: Goal directed; can be circumstantial TC: wanting to go home Mood: just chilling out Affect: congruent SI: denies HI: denies VH/AH: no signs Delusions: no overt delusional content but noted confabulation. Insight/judgment: impaired x 2. memory/cog: alert, oriented to place, month and year but not to situation. Significant difficulty remembering events that led to this admission. MOCA Diagnostics Vital Signs (24Hr): Vital Signs - 24 hr 05/08/25 08:00 05/08/25 08:20 05/08/25 08:21 Temperature 36.5 F L Pulse Rate 61 Respiratory Rate 16 Blood Pressure 121/72 121/72 121/72 Pulse Oximetry 97 Oxygen Delivery Method Room Air 05/08/25 20:00 Temperature 97.7 F Pulse Rate 64 Respiratory Rate 16 Blood Pressure 124/72 Pulse Oximetry 95 Oxygen Delivery Method Room Air BMI result Body Mass Index 17.1 Labs 05/06/25 18:30 05/06/25 18:30 Imaging Radiology Impressions: ITS Impressions Thyroid Ultrasound 04/03/25 11:58 IMPRESSION: Heterogeneous hypervascular thyroid gland. No discrete nodules are identified. ACR TI-RADS Guidelines TR1 (0 points): Benign. No follow-up or biopsy required TR2 (2 points): Not Suspicious. No biopsy or follow up indicated TR3 (3 points): Mildly Suspicious. FNA if >= 2.5 cm, Follow if >= 1.5 cm TR4 (4-6 points): Moderately Suspicious. FNA if >= 1.5 cm, Follow if >= 1.0 cm TR5 (>=7 points): Highly Suspicious. FNA if >= 1.0 cm, Follow if >= 0.5 cm Electronically signed by: García Young MD 04/04/2025 07:08 AM EDT RP Abdomen X-Ray 04/05/25 11:25 IMPRESSION: No radiopaque foreign body is identified. Electronically signed by: García Young MD 04/05/2025 11:45 AM EDT RP Chest X-Ray 04/05/25 11:25 IMPRESSION: Clear lungs. No radiopaque foreign body is identified. Electronically signed by: García Young MD 04/05/2025 11:46 AM EDT RP Skull X-Ray 04/05/25 11:25 IMPRESSION: No radiopaque foreign body is identified. Electronically signed by: García Young MD 04/05/2025 11:47 AM EDT RP Brain MRI 04/05/25 11:38 IMPRESSION: 1. No evidence of intracranial hemorrhage, acute infarction, mass effect, or edema. 2. Age advanced cerebral and cerebellar volume loss. Please refer to the above, and the full neuroquantitative report included with the examination. 3. Moderate to severe changes of small vessel ischemia. 4. Crib d'etat appearance of the basal ganglia suggestive of sequela of chronic hypertension. Electronically signed by: Ruddy Moreau MD 04/18/2025 08:28 AM EDT RP Medications Medications Current Medications Acetaminophen (Acetaminophen 325 Mg Tablet) 650 mg PO Q6H PRN PRN Reason: Pain 1-10 or headache Last Admin: 05/08/25 16:43 Dose: 650 mg Acetaminophen/Butalbital/Caffeine (Butalb/Acetamin/Caff 50/325/40 Tablet) 1 tab PO BID PRN PRN Reason: Pain, Moderate(Pain Scale 4-6) Last Admin: 05/08/25 21:23 Dose: 1 tab Al Hydroxide/Mg Hydroxide (Magnesium Hydrox/Alum Hydrox 30 Ml Oral.Susp) 30 ml PO Q6H PRN PRN Reason: Heartburn/Nausea Amlodipine Besylate (Amlodipine Besylate 5 Mg Tablet) 5 mg PO DAILY ROGELIO; Protocol Last Admin: 05/08/25 08:21 Dose: 5 mg Aripiprazole (Aripiprazole 15 Mg Tablet) 15 mg PO DAILY [facility] Last Admin: 05/08/25 08:21 Dose: 15 mg Aripiprazole (Aripiprazole 5 Mg Tablet) 5 mg PO DAILY@1600 [facility] Last Admin: 05/08/25 16:41 Dose: 5 mg Atorvastatin Calcium (Atorvastatin Calcium 80 Mg Tablet) 80 mg PO DAILY [facility] Last Admin: 05/08/25 08:20 Dose: 80 mg Donepezil HCl (Donepezil Hcl 5 Mg Tablet) 5 mg PO BEDTIME [facility] Last Admin: 05/08/25 21:08 Dose: 5 mg Magnesium Hydroxide (Milk Of Magnesia 30 Ml Oral.Susp) 30 ml PO DAILY PRN PRN Reason: Constipation Methimazole (Methimazole 10 Mg Tablet) 10 mg PO DAILY [facility] Last Admin: 05/08/25 08:21 Dose: 10 mg Mirtazapine (Mirtazapine 15 Mg Tablet) 15 mg PO BEDTIME [facility] Last Admin: 05/08/25 21:08 Dose: 15 mg Nicotine Polacrilex (Nicotine Polacrilex 2 Mg Gum) 4 mg BUCCAL Q2H PRN PRN Reason: Nicotine Cravings Olanzapine (Olanzapine 5 Mg Tablet) 5 mg PO TID PRN PRN Reason: agitation Last Admin: 05/02/25 15:15 Dose: 5 mg Omeprazole (Omeprazole 20 Mg Capsule.Dr) 20 mg PO DAILY@0630 [facility] Last Admin: 05/09/25 06:39 Dose: 20 mg Spironolactone (Spironolactone 25 Mg Tablet) 25 mg PO DAILY [facility]; Protocol Last Admin: 05/08/25 08:20 Dose: 25 mg Trazodone HCl (Trazodone Hcl 25 Mg Halftab) 25 mg PO BEDTIME MRX1 PRN PRN Reason: Insomnia Last Admin: 04/26/25 21:20 Dose: 25 mg Trazodone HCl (Trazodone Hcl 25 Mg Halftab) 12.5 mg PO Q6H PRN PRN Reason: anxiety/agitation Allergies Allergies Allergy/AdvReac Type Severity Reaction Status Date / Time codeine Allergy Intermediate hives Verified 03/28/25 21:43 NSAIDS (Non-Steroidal AdvReac Severe gi bleed Verified 04/05/25 10:40 Anti-Inflamma Assessment & Plan Assessment & Plan (1) MDD (major depressive disorder), recurrent episode, moderate: Status: Acute Code(s): F33.1 - Major depressive disorder, recurrent, moderate (2) Major neurocognitive disorder, due to another medical condition, with behavioral disturbance, severe: Status: Acute Code(s): F02.C18 - Dementia in other diseases classified elsewhere, severe, with other behavioral disturbance (3) Graves disease: Status: Acute Code(s): E05.00 - Thyrotoxicosis with diffuse goiter without thyrotoxic crisis or storm Assessment and Plan: Pt is a 70-year-old female with a PMH significant for?HLD/CAD, NSTEMI 17 years ago, HTN, HFpEF, aniety, and depression who is admitted to [facility] for increasing depression with SI. Pt initially presented to [facility] for profound lethargy and inability to function at home. Workup was negative except for undetectable TSH but T3 and T4 WNL. While in the ED pt became agitated with multiple outbursts, including throwing coffee, kicking and screaming, and swearing at staff. Pt was not redirectable and required IM Zyprexa. Seen today for right ear pain, transaminitis. . Right otitis media. Augmentin 875 mgs BID for 5 days Improved HTN/CAD/HLD Continue amlodipine. Reports hx of NSTEMI 17 years ago No longer taking aspirin or Plavix, unclear if pt stopped taking on her own or at direction of cardiology Continue statin Asymptomatic bradycardia Metoprolol DC Graves disease Thyroid ultrasound without nodules but noted to be hypervascular TSI and TRAb elevated. Free T3 elevated, T4 normal Continue Methimazole 10 mgs daily Repeat labs in one week. Follow labs every 4 weeks. Will need endocrinology follow up. Abdominal pain/transaminitis Abdominal pain resolved If reoccurs we will order HIDA scan Patient reports a history of Hep C- Viral panel undetectable. Patient with a history of EtOH use Abdominal pain resolved. Liver tests reviewed with Dr. Mauro. No further intervention as abdominal pain resolved. Patient refused HIDA scan Hx of HFpEF Not in acute exacerbation Continue spironolactone Thank you for allowing me to participate in the care of this patient. We will continue to follow as needed. Please reconsult of any acute concerns or issues arise Plan Mrs. Martinez is a 70 year-old woman who was initially brought to [facility] due to weakness, profound lethargy and inability to care for herself. While in the ED, pt presented as agitated, combative and reported SI. Daughter reports pt has been struggling to care for herself (house without hot water, in condemnable condition and pt has not showered in several months). Pt is not able to recall events leading to this admission, despite the fact that she is oriented to month, year and place. We discussed risks, benefits and alternative treatment options. Will lower dose of xanax as pt this morning was more somnolent and lethargic although she had not received xanax. Lowered to 0.5mg po TID. continue effexor er 75mg po daily. Pt noted to have BP elevated but this was one point of care- will continue to monitor. No signs of benzo withdrawal. Pending MOCA/ACL. Will also check B12 (note that although no anemia, MCV was high). Repeat of CMP shows some degree of dehydration (elevated BUN from 14 to 23)- encourage fluids. PLAN 04/04 LFTs trending up, GI following, denies any abdominal pain, no vomiting, afebrile. pt confused as to why she is here, somewhat suspicious about her children wanting to leave her here. Will hold on starting medications until LFTs and bilirubin normalizes. Pending US of gallbladder today. 04/05 pt forgetful from day to day, confabulation with often seems more like blaming her children for doing things behind her back and thinks they are lying when automotive service writer explains concern in terms of memory/cog impairments. 04/06 LFTs trending down. Will start abilify for mood/suspiciousness. 04/08 continue tx. 04/09: Continue current regimen and plans. Trial of Fioricet b.i.d. PRN 04/11 increase abilify for mood. reading of MRI with neuroquant- still pending. CAUTION WITH ACETAMINOPHEN AND LFTS. ALSO CAUTION WITH NSAID- not H&H down since admission. She was started on Tapazole 10mg po daily for graves disease- newly dx here. HIDA scan for abdominal pain not completed due to pt declining- may need to reorder if pt presents with abdominal pain or again LFTs elevation. 04/12: stable, demented. asking about discharge home when awaiting placement. MRI c neuroquant pending. stable presentation. continue current mgmt for now. 04/13: poor sleep due to disruptive peer. resting today. no request for discharge. no behavioral issues. continue current mgmt. 04/14: slept 5 hours. somewhat hypomanic today, circumstantial and moderately disorganized. agreeable to stay for the time being, per SW. increase abilify to 15 mg daily for mood stability. call placed to radiology for read on MRI brain done 04/05/25. 04/15: head MRI read remains absent. stable presentation. resting today, not activated or irritable. continue current mgmt. 04/16: stable presentation. remains a bit more organized and less labile than prior, since increase in abilify dosing. also a bit more tired. T/C moving abilify to HS to prevent daytime sedation. 04/17: lying in bed, calm. does not mention agitation around midnight last night. no complaints or requests. continue current mgmt. continues more organized and less labile. 04/18: MRI brain c/w AD and vascular dementia. start donepezil. remains less labile and irritable since abilify dosing increase. awaiting placement. continue current mgmt. 04/19: appears to be endorsing AH and expressing paranoia re staff today. increase abilify once again, this time with added dose in the evening. otherwise continue current mgmt. 04/20/25: Patient slept for 8 hours, was medication compliant. Denied side effects. However per nursing staff, patient was struggle with taking medication last night. She has sundown symptoms, more irritable in the afternoon and evening. During conversation with this provider, patient reports that she feel irritable but denies anxiety or depression. She said medications do not do anything good. Sucks being in here. Then she is more irritable when we asked about safety concern questions. it Is a bunch of bullshit, I am done talking . However she continued engaged in conversation when this provider review with her regarding Abilify scheduled time of the afternoon dose. She is working on menu at the same time. Per nursing, patient struggle with taking Abilify in the afternoon yesterday, after he she has sundown symptoms. Therefore I will change to 1600 so nursing staff can offer her at around 3 PM. Does not make any paranoid statements. 04/20: tired, resting in the morning. no paranoid delusions expressed. court paperwork completed for affirming HCP. continue current mgmt. 04/22: as for yesterday. reportedly c/o chills, shivering overnight, denies today. afebrile. continue current mgmt. 04/23: continue current tx 04/24: continue current tx 04/25: stable, continue current mgmt. 04/26: no change in presentation. HCP affirmation hearing tomorrow. continue current mgmt. 04/27: no change in presentation. HCP affirmation hearing today. continue current mgmt. 04/28 continue current medications. 04/29 continue tx. 04/30: continue current management and treatment plan. 05/01: continue current management and treatment plan. 05/02: Continue current management and treatment plan. 05/03 continue tx. 05/04 continue tx 05/05 continue tx. 05/06 continue tx. 05/09 continue tx. Reason for continued inpatient stay Substantial Risk for: inability to function Time Spent With Patient Time: Total time managing care of this patient today ____ minutes.
[2025-05-09 08:00] VITALS: BP 144/65; PULSE 45; RESP 16; TEMP 36.1; O2SAT 95
[2025-05-09 08:41] VITALS: BP 144/65
--- NOTE | 2025-05-09 09:22 | PC.NURSE ---
BP 144/65, P 45; Ronit Rose/HUNTER notified in person, stated, to give Amlodipine and Spironolactone.
--- NOTE | 2025-05-09 15:26 | MHC.CLN ---
F/U DIET=REGULAR. ENSURE TID PROVIDES 1050 KCALS, 60 G PROTEIN. CONTINUES WITH VARIABLE PO INTAKE WITH MOST MEALS GREATER THAN OR EQUAL TO 50%. CONTINUE TO FOLLOW FOR PO INTAKE.
[2025-05-09] MEDS: Butalb/Acetamin/Caff 50/325/40 TABLET 1 TAB PO (17:07)
[2025-05-09 20:00] VITALS: BP 130/66; PULSE 58; RESP 16; TEMP 36.4; O2SAT 96
[2025-05-10 08:52] VITALS: BP 110/57; PULSE 46; RESP 17; TEMP 35.8; O2SAT 97
--- NOTE | 2025-05-10 18:12 | P.PNPSI_ITS ---
Subjective Subjective Date of Service: 05/10/25 Reason For Visit: Bradycardia Subjective Notes: Conditional Voluntary Healthcare Proxy: Yes Interim History: Pt slept through the night. She denies any complaints. continues to spend most of the time in her room, does not like attending groups, awaiting placement. pending consult for bradycardia. Review of Systems Review of Systems Denied Yes all other systems are reviewed and are negative Mental Status Exam Mental Status Exam Narrative: Appearance: wearing hospital gown, thin, very poor hygiene, , in NAD Behavior: superficially cooperative; isolative Psychomotor: Some psychomotor retardation Speech: mostly clear, normal rate/rhythm/volume, spontaneous TP: Goal directed; can be circumstantial TC: wanting to go home Mood: just chilling out Affect: congruent SI: denies HI: denies VH/AH: no signs Delusions: no overt delusional content but noted confabulation. Insight/judgment: impaired x 2. memory/cog: alert, oriented to place, month and year but not to situation. Significant difficulty remembering events that led to this admission. MOCA Diagnostics Vital Signs (24Hr): Vital Signs - 24 hr 05/09/25 20:00 05/10/25 08:52 Temperature 97.6 F 96.5 F L Pulse Rate 58 46 L Respiratory Rate 16 17 Blood Pressure 130/66 110/57 L Pulse Oximetry 96 97 Oxygen Delivery Method Room Air Room Air BMI result Body Mass Index 17.1 Labs 05/06/25 18:30 05/06/25 18:30 Imaging Radiology Impressions: ITS Impressions Thyroid Ultrasound 04/03/25 11:58 IMPRESSION: Heterogeneous hypervascular thyroid gland. No discrete nodules are identified. ACR TI-RADS Guidelines TR1 (0 points): Benign. No follow-up or biopsy required TR2 (2 points): Not Suspicious. No biopsy or follow up indicated TR3 (3 points): Mildly Suspicious. FNA if >= 2.5 cm, Follow if >= 1.5 cm TR4 (4-6 points): Moderately Suspicious. FNA if >= 1.5 cm, Follow if >= 1.0 cm TR5 (>=7 points): Highly Suspicious. FNA if >= 1.0 cm, Follow if >= 0.5 cm Electronically signed by: García Young MD 04/04/2025 07:08 AM EDT RP Abdomen X-Ray 04/05/25 11:25 IMPRESSION: No radiopaque foreign body is identified. Electronically signed by: García Young MD 04/05/2025 11:45 AM EDT RP Chest X-Ray 04/05/25 11:25 IMPRESSION: Clear lungs. No radiopaque foreign body is identified. Electronically signed by: García Young MD 04/05/2025 11:46 AM EDT RP Skull X-Ray 04/05/25 11:25 IMPRESSION: No radiopaque foreign body is identified. Electronically signed by: García Young MD 04/05/2025 11:47 AM EDT RP Brain MRI 04/05/25 11:38 IMPRESSION: 1. No evidence of intracranial hemorrhage, acute infarction, mass effect, or edema. 2. Age advanced cerebral and cerebellar volume loss. Please refer to the above, and the full neuroquantitative report included with the examination. 3. Moderate to severe changes of small vessel ischemia. 4. Crib d'etat appearance of the basal ganglia suggestive of sequela of chronic hypertension. Electronically signed by: Ruddy Moreau MD 04/18/2025 08:28 AM EDT RP Medications Medications Current Medications Acetaminophen (Acetaminophen 325 Mg Tablet) 650 mg PO Q6H PRN PRN Reason: Pain 1-10 or headache Last Admin: 05/10/25 11:45 Dose: 650 mg Acetaminophen/Butalbital/Caffeine (Butalb/Acetamin/Caff 50/325/40 Tablet) 1 tab PO BID PRN PRN Reason: Pain, Moderate(Pain Scale 4-6) Last Admin: 05/09/25 17:07 Dose: 1 tab Al Hydroxide/Mg Hydroxide (Magnesium Hydrox/Alum Hydrox 30 Ml Oral.Susp) 30 ml PO Q6H PRN PRN Reason: Heartburn/Nausea Amlodipine Besylate (Amlodipine Besylate 5 Mg Tablet) 5 mg PO DAILY ROGELIO; Protocol Last Admin: 05/10/25 08:58 Dose: 5 mg Aripiprazole (Aripiprazole 15 Mg Tablet) 15 mg PO DAILY [facility] Last Admin: 05/10/25 08:58 Dose: 15 mg Aripiprazole (Aripiprazole 5 Mg Tablet) 5 mg PO DAILY@1600 [facility] Last Admin: 05/10/25 15:33 Dose: 5 mg Atorvastatin Calcium (Atorvastatin Calcium 80 Mg Tablet) 80 mg PO DAILY [facility] Last Admin: 05/10/25 08:58 Dose: 80 mg Donepezil HCl (Donepezil Hcl 5 Mg Tablet) 5 mg PO BEDTIME [facility] Last Admin: 05/09/25 21:38 Dose: 5 mg Magnesium Hydroxide (Milk Of Magnesia 30 Ml Oral.Susp) 30 ml PO DAILY PRN PRN Reason: Constipation Methimazole (Methimazole 10 Mg Tablet) 10 mg PO DAILY [facility] Last Admin: 05/10/25 08:59 Dose: 10 mg Mirtazapine (Mirtazapine 15 Mg Tablet) 15 mg PO BEDTIME [facility] Last Admin: 05/09/25 21:38 Dose: 15 mg Nicotine Polacrilex (Nicotine Polacrilex 2 Mg Gum) 4 mg BUCCAL Q2H PRN PRN Reason: Nicotine Cravings Olanzapine (Olanzapine 5 Mg Tablet) 5 mg PO TID PRN PRN Reason: agitation Last Admin: 05/02/25 15:15 Dose: 5 mg Omeprazole (Omeprazole 20 Mg Capsule.Dr) 20 mg PO DAILY@0630 [facility] Last Admin: 05/10/25 06:22 Dose: 20 mg Spironolactone (Spironolactone 25 Mg Tablet) 25 mg PO DAILY [facility]; Protocol Last Admin: 05/10/25 08:57 Dose: 25 mg Trazodone HCl (Trazodone Hcl 25 Mg Halftab) 25 mg PO BEDTIME MRX1 PRN PRN Reason: Insomnia Last Admin: 04/26/25 21:20 Dose: 25 mg Trazodone HCl (Trazodone Hcl 25 Mg Halftab) 12.5 mg PO Q6H PRN PRN Reason: anxiety/agitation Allergies Allergies Allergy/AdvReac Type Severity Reaction Status Date / Time codeine Allergy Intermediate hives Verified 03/28/25 21:43 NSAIDS (Non-Steroidal AdvReac Severe gi bleed Verified 04/05/25 10:40 Anti-Inflamma Assessment & Plan Assessment & Plan (1) MDD (major depressive disorder), recurrent episode, moderate: Status: Acute Code(s): F33.1 - Major depressive disorder, recurrent, moderate (2) Major neurocognitive disorder, due to another medical condition, with behavioral disturbance, severe: Status: Acute Code(s): F02.C18 - Dementia in other diseases classified elsewhere, severe, with other behavioral disturbance (3) Graves disease: Status: Acute Code(s): E05.00 - Thyrotoxicosis with diffuse goiter without thyrotoxic crisis or storm Assessment and Plan: Pt is a 70-year-old female with a PMH significant for?HLD/CAD, NSTEMI 17 years ago, HTN, HFpEF, aniety, and depression who is admitted to [facility] for increasing depression with SI. Pt initially presented to [facility] for profound lethargy and inability to function at home. Workup was negative except for undetectable TSH but T3 and T4 WNL. While in the ED pt became agitated with multiple outbursts, including throwing coffee, kicking and screaming, and swearing at staff. Pt was not redirectable and required IM Zyprexa. Seen today for right ear pain, transaminitis. . Right otitis media. Augmentin 875 mgs BID for 5 days Improved HTN/CAD/HLD Continue amlodipine. Reports hx of NSTEMI 17 years ago No longer taking aspirin or Plavix, unclear if pt stopped taking on her own or at direction of cardiology Continue statin Asymptomatic bradycardia Metoprolol DC Graves disease Thyroid ultrasound without nodules but noted to be hypervascular TSI and TRAb elevated. Free T3 elevated, T4 normal Continue Methimazole 10 mgs daily Repeat labs in one week. Follow labs every 4 weeks. Will need endocrinology follow up. Abdominal pain/transaminitis Abdominal pain resolved If reoccurs we will order HIDA scan Patient reports a history of Hep C- Viral panel undetectable. Patient with a history of EtOH use Abdominal pain resolved. Liver tests reviewed with Dr. Mauro. No further intervention as abdominal pain resolved. Patient refused HIDA scan Hx of HFpEF Not in acute exacerbation Continue spironolactone Thank you for allowing me to participate in the care of this patient. We will continue to follow as needed. Please reconsult of any acute concerns or issues arise Plan Mrs. Martinez is a 70 year-old woman who was initially brought to [facility] due to weakness, profound lethargy and inability to care for herself. While in the ED, pt presented as agitated, combative and reported SI. Daughter reports pt has been struggling to care for herself (house without hot water, in condemnable condition and pt has not showered in several months). Pt is not able to recall events leading to this admission, despite the fact that she is oriented to month, year and place. We discussed risks, benefits and alternative treatment options. Will lower dose of xanax as pt this morning was more somnolent and lethargic although she had not received xanax. Lowered to 0.5mg po TID. continue effexor er 75mg po daily. Pt noted to have BP elevated but this was one point of care- will continue to monitor. No signs of benzo withdrawal. Pending MOCA/ACL. Will also check B12 (note that although no anemia, MCV was high). Repeat of CMP shows some degree of dehydration (elevated BUN from 14 to 23)- encourage fluids. PLAN 04/04 LFTs trending up, GI following, denies any abdominal pain, no vomiting, afebrile. pt confused as to why she is here, somewhat suspicious about her children wanting to leave her here. Will hold on starting medications until LFTs and bilirubin normalizes. Pending US of gallbladder today. 04/05 pt forgetful from day to day, confabulation with often seems more like blaming her children for doing things behind her back and thinks they are lying when health underwriter explains concern in terms of memory/cog impairments. 04/06 LFTs trending down. Will start abilify for mood/suspiciousness. 04/08 continue tx. 04/09: Continue current regimen and plans. Trial of Fioricet b.i.d. PRN 04/11 increase abilify for mood. reading of MRI with neuroquant- still pending. CAUTION WITH ACETAMINOPHEN AND LFTS. ALSO CAUTION WITH NSAID- not H&H down since admission. She was started on Tapazole 10mg po daily for graves disease- newly dx here. HIDA scan for abdominal pain not completed due to pt declining- may need to reorder if pt presents with abdominal pain or again LFTs elevation. 04/12: stable, demented. asking about discharge home when awaiting placement. MRI c neuroquant pending. stable presentation. continue current mgmt for now. 04/13: poor sleep due to disruptive peer. resting today. no request for discharge. no behavioral issues. continue current mgmt. 04/14: slept 5 hours. somewhat hypomanic today, circumstantial and moderately disorganized. agreeable to stay for the time being, per SW. increase abilify to 15 mg daily for mood stability. call placed to radiology for read on MRI brain done 04/05/25. 04/15: head MRI read remains absent. stable presentation. resting today, not activated or irritable. continue current mgmt. 04/16: stable presentation. remains a bit more organized and less labile than prior, since increase in abilify dosing. also a bit more tired. T/C moving abilify to HS to prevent daytime sedation. 04/17: lying in bed, calm. does not mention agitation around midnight last night. no complaints or requests. continue current mgmt. continues more organized and less labile. 04/18: MRI brain c/w AD and vascular dementia. start donepezil. remains less labile and irritable since abilify dosing increase. awaiting placement. continue current mgmt. 04/19: appears to be endorsing AH and expressing paranoia re staff today. increase abilify once again, this time with added dose in the evening. otherwise continue current mgmt. 04/20/25: Patient slept for 8 hours, was medication compliant. Denied side effects. However per nursing staff, patient was struggle with taking medication last night. She has sundown symptoms, more irritable in the afternoon and evening. During conversation with this provider, patient reports that she feel irritable but denies anxiety or depression. She said medications do not do anything good. Sucks being in here. Then she is more irritable when we asked about safety concern questions. it Is a bunch of bullshit, I am done talking . However she continued engaged in conversation when this provider review with her regarding Abilify scheduled time of the afternoon dose. She is working on menu at the same time. Per nursing, patient struggle with taking Abilify in the afternoon yesterday, after he she has sundown symptoms. Therefore I will change to 1600 so nursing staff can offer her at around 3 PM. Does not make any paranoid statements. 04/20: tired, resting in the morning. no paranoid delusions expressed. court paperwork completed for affirming HCP. continue current mgmt. 04/22: as for yesterday. reportedly c/o chills, shivering overnight, denies today. afebrile. continue current mgmt. 04/23: continue current tx 04/24: continue current tx 04/25: stable, continue current mgmt. 04/26: no change in presentation. HCP affirmation hearing tomorrow. continue current mgmt. 04/27: no change in presentation. HCP affirmation hearing today. continue current mgmt. 04/28 continue current medications. 04/29 continue tx. 04/30: continue current management and treatment plan. 05/01: continue current management and treatment plan. 05/02: Continue current management and treatment plan. 05/03 continue tx. 05/04 continue tx 05/05 continue tx. 05/06 continue tx. 05/09 continue tx. 05/10 continue tx. Reason for continued inpatient stay Substantial Risk for: inability to function Time Spent With Patient Time: Total time managing care of this patient today ____ minutes.
[2025-05-10 19:58] VITALS: BP 109/56; PULSE 71; RESP 18; TEMP 36.9; O2SAT 97
[2025-05-11 08:00] VITALS: BP 138/98; PULSE 42; RESP 16; TEMP 36.3; O2SAT 96
[2025-05-11 10:17] VITALS: BP 138/98
[2025-05-11] MEDS: Butalb/Acetamin/Caff 50/325/40 TABLET 1 TAB PO (14:38)
--- NOTE | 2025-05-11 15:49 | HO.PSYCHPN ---
Subjective Subjective Date of Service: 05/11/25 Reason For Visit: Bradycardia Subjective Notes: Conditional Voluntary Healthcare Proxy: Yes Interim History: Pt slept through the night. She denies any complaints. continues to spend most of the time in her room, does not like attending groups, awaiting placement. Seen by cardiology, recomendation that as long as asymptomatic no further changes, do suspect aricept has worsen underlying bradycardia. Review of Systems Review of Systems Denied Yes all other systems are reviewed and are negative Mental Status Exam Mental Status Exam Narrative: Appearance: wearing hospital gown, thin, very poor hygiene, , in NAD Behavior: superficially cooperative; isolative Psychomotor: Some psychomotor retardation Speech: mostly clear, normal rate/rhythm/volume, spontaneous TP: Goal directed; can be circumstantial TC: wanting to go home Mood: just chilling out Affect: congruent SI: denies HI: denies VH/AH: no signs Delusions: no overt delusional content but noted confabulation. Insight/judgment: impaired x 2. memory/cog: alert, oriented to place, month and year but not to situation. Significant difficulty remembering events that led to this admission. MOCA Diagnostics Vital Signs (24Hr): Vital Signs - 24 hr 05/10/25 19:58 05/11/25 08:00 05/11/25 10:17 Temperature 98.4 F 97.4 F Pulse Rate 71 42 L Respiratory Rate 18 16 Blood Pressure 109/56 L 138/98 H 138/98 H Pulse Oximetry 97 96 Oxygen Delivery Method Room Air Room Air 05/11/25 10:17 Temperature Pulse Rate Respiratory Rate Blood Pressure 138/98 H Pulse Oximetry Oxygen Delivery Method BMI result Body Mass Index 17.1 Labs 05/06/25 18:30 05/06/25 18:30 Imaging Radiology Impressions: ITS Impressions Thyroid Ultrasound 04/03/25 11:58 IMPRESSION: Heterogeneous hypervascular thyroid gland. No discrete nodules are identified. ACR TI-RADS Guidelines TR1 (0 points): Benign. No follow-up or biopsy required TR2 (2 points): Not Suspicious. No biopsy or follow up indicated TR3 (3 points): Mildly Suspicious. FNA if >= 2.5 cm, Follow if >= 1.5 cm TR4 (4-6 points): Moderately Suspicious. FNA if >= 1.5 cm, Follow if >= 1.0 cm TR5 (>=7 points): Highly Suspicious. FNA if >= 1.0 cm, Follow if >= 0.5 cm Electronically signed by: García Young MD 04/04/2025 07:08 AM EDT RP Abdomen X-Ray 04/05/25 11:25 IMPRESSION: No radiopaque foreign body is identified. Electronically signed by: García Young MD 04/05/2025 11:45 AM EDT RP Chest X-Ray 04/05/25 11:25 IMPRESSION: Clear lungs. No radiopaque foreign body is identified. Electronically signed by: García Young MD 04/05/2025 11:46 AM EDT RP Skull X-Ray 04/05/25 11:25 IMPRESSION: No radiopaque foreign body is identified. Electronically signed by: García Young MD 04/05/2025 11:47 AM EDT RP Brain MRI 04/05/25 11:38 IMPRESSION: 1. No evidence of intracranial hemorrhage, acute infarction, mass effect, or edema. 2. Age advanced cerebral and cerebellar volume loss. Please refer to the above, and the full neuroquantitative report included with the examination. 3. Moderate to severe changes of small vessel ischemia. 4. Crib d'etat appearance of the basal ganglia suggestive of sequela of chronic hypertension. Electronically signed by: Ruddy Moreau MD 04/18/2025 08:28 AM EDT RP Medications Medications Current Medications Acetaminophen (Acetaminophen 325 Mg Tablet) 650 mg PO Q6H PRN PRN Reason: Pain 1-10 or headache Last Admin: 05/10/25 19:56 Dose: 650 mg Acetaminophen/Butalbital/Caffeine (Butalb/Acetamin/Caff 50/325/40 Tablet) 1 tab PO BID PRN PRN Reason: Pain, Moderate(Pain Scale 4-6) Last Admin: 05/11/25 14:38 Dose: 1 tab Al Hydroxide/Mg Hydroxide (Magnesium Hydrox/Alum Hydrox 30 Ml Oral.Susp) 30 ml PO Q6H PRN PRN Reason: Heartburn/Nausea Amlodipine Besylate (Amlodipine Besylate 5 Mg Tablet) 5 mg PO DAILY [facility]; Protocol Last Admin: 05/11/25 10:17 Dose: 5 mg Aripiprazole (Aripiprazole 15 Mg Tablet) 15 mg PO DAILY [facility] Last Admin: 05/11/25 10:17 Dose: 15 mg Aripiprazole (Aripiprazole 5 Mg Tablet) 5 mg PO DAILY@1600 [facility] Last Admin: 05/10/25 15:33 Dose: 5 mg Atorvastatin Calcium (Atorvastatin Calcium 80 Mg Tablet) 80 mg PO DAILY [facility] Last Admin: 05/11/25 10:17 Dose: 80 mg Donepezil HCl (Donepezil Hcl 5 Mg Tablet) 5 mg PO BEDTIME [facility] Last Admin: 05/10/25 19:56 Dose: 5 mg Magnesium Hydroxide (Milk Of Magnesia 30 Ml Oral.Susp) 30 ml PO DAILY PRN PRN Reason: Constipation Methimazole (Methimazole 10 Mg Tablet) 10 mg PO DAILY [facility] Last Admin: 05/11/25 10:17 Dose: 10 mg Mirtazapine (Mirtazapine 15 Mg Tablet) 15 mg PO BEDTIME [facility] Last Admin: 05/10/25 19:56 Dose: 15 mg Nicotine Polacrilex (Nicotine Polacrilex 2 Mg Gum) 4 mg BUCCAL Q2H PRN PRN Reason: Nicotine Cravings Olanzapine (Olanzapine 5 Mg Tablet) 5 mg PO TID PRN PRN Reason: agitation Last Admin: 05/02/25 15:15 Dose: 5 mg Omeprazole (Omeprazole 20 Mg Capsule.Dr) 20 mg PO DAILY@0630 [facility] Last Admin: 05/11/25 06:06 Dose: 20 mg Spironolactone (Spironolactone 25 Mg Tablet) 25 mg PO DAILY [facility]; Protocol Last Admin: 05/11/25 10:17 Dose: 25 mg Trazodone HCl (Trazodone Hcl 25 Mg Halftab) 25 mg PO BEDTIME MRX1 PRN PRN Reason: Insomnia Last Admin: 04/26/25 21:20 Dose: 25 mg Trazodone HCl (Trazodone Hcl 25 Mg Halftab) 12.5 mg PO Q6H PRN PRN Reason: anxiety/agitation Allergies Allergies Allergy/AdvReac Type Severity Reaction Status Date / Time codeine Allergy Intermediate hives Verified 03/28/25 21:43 NSAIDS (Non-Steroidal AdvReac Severe gi bleed Verified 04/05/25 10:40 Anti-Inflamma Assessment & Plan Assessment & Plan (1) MDD (major depressive disorder), recurrent episode, moderate: Status: Acute Code(s): F33.1 - Major depressive disorder, recurrent, moderate (2) Major neurocognitive disorder, due to another medical condition, with behavioral disturbance, severe: Status: Acute Code(s): F02.C18 - Dementia in other diseases classified elsewhere, severe, with other behavioral disturbance (3) Graves disease: Status: Acute Code(s): E05.00 - Thyrotoxicosis with diffuse goiter without thyrotoxic crisis or storm Assessment and Plan: Pt is a 70-year-old female with a PMH significant for?HLD/CAD, NSTEMI 17 years ago, HTN, HFpEF, aniety, and depression who is admitted to [facility] for increasing depression with SI. Pt initially presented to [facility] for profound lethargy and inability to function at home. Workup was negative except for undetectable TSH but T3 and T4 WNL. While in the ED pt became agitated with multiple outbursts, including throwing coffee, kicking and screaming, and swearing at staff. Pt was not redirectable and required IM Zyprexa. Seen today for right ear pain, transaminitis. . Right otitis media. Augmentin 875 mgs BID for 5 days Improved HTN/CAD/HLD Continue amlodipine. Reports hx of NSTEMI 17 years ago No longer taking aspirin or Plavix, unclear if pt stopped taking on her own or at direction of cardiology Continue statin Asymptomatic bradycardia Metoprolol DC Graves disease Thyroid ultrasound without nodules but noted to be hypervascular TSI and TRAb elevated. Free T3 elevated, T4 normal Continue Methimazole 10 mgs daily Repeat labs in one week. Follow labs every 4 weeks. Will need endocrinology follow up. Abdominal pain/transaminitis Abdominal pain resolved If reoccurs we will order HIDA scan Patient reports a history of Hep C- Viral panel undetectable. Patient with a history of EtOH use Abdominal pain resolved. Liver tests reviewed with Dr. Mauro. No further intervention as abdominal pain resolved. Patient refused HIDA scan Hx of HFpEF Not in acute exacerbation Continue spironolactone Thank you for allowing me to participate in the care of this patient. We will continue to follow as needed. Please reconsult of any acute concerns or issues arise Plan Mrs. Martinez is a 70 year-old woman who was initially brought to [facility] due to weakness, profound lethargy and inability to care for herself. While in the ED, pt presented as agitated, combative and reported SI. Daughter reports pt has been struggling to care for herself (house without hot water, in condemnable condition and pt has not showered in several months). Pt is not able to recall events leading to this admission, despite the fact that she is oriented to month, year and place. We discussed risks, benefits and alternative treatment options. Will lower dose of xanax as pt this morning was more somnolent and lethargic although she had not received xanax. Lowered to 0.5mg po TID. continue effexor er 75mg po daily. Pt noted to have BP elevated but this was one point of care- will continue to monitor. No signs of benzo withdrawal. Pending MOCA/ACL. Will also check B12 (note that although no anemia, MCV was high). Repeat of CMP shows some degree of dehydration (elevated BUN from 14 to 23)- encourage fluids. PLAN 04/04 LFTs trending up, GI following, denies any abdominal pain, no vomiting, afebrile. pt confused as to why she is here, somewhat suspicious about her children wanting to leave her here. Will hold on starting medications until LFTs and bilirubin normalizes. Pending US of gallbladder today. 04/05 pt forgetful from day to day, confabulation with often seems more like blaming her children for doing things behind her back and thinks they are lying when journalists and other writers explains concern in terms of memory/cog impairments. 04/06 LFTs trending down. Will start abilify for mood/suspiciousness. 04/08 continue tx. 04/09: Continue current regimen and plans. Trial of Fioricet b.i.d. PRN 04/11 increase abilify for mood. reading of MRI with neuroquant- still pending. CAUTION WITH ACETAMINOPHEN AND LFTS. ALSO CAUTION WITH NSAID- not H&H down since admission. She was started on Tapazole 10mg po daily for graves disease- newly dx here. HIDA scan for abdominal pain not completed due to pt declining- may need to reorder if pt presents with abdominal pain or again LFTs elevation. 04/12: stable, demented. asking about discharge home when awaiting placement. MRI c neuroquant pending. stable presentation. continue current mgmt for now. 04/13: poor sleep due to disruptive peer. resting today. no request for discharge. no behavioral issues. continue current mgmt. 04/14: slept 5 hours. somewhat hypomanic today, circumstantial and moderately disorganized. agreeable to stay for the time being, per SW. increase abilify to 15 mg daily for mood stability. call placed to radiology for read on MRI brain done 04/05/25. 04/15: head MRI read remains absent. stable presentation. resting today, not activated or irritable. continue current mgmt. 04/16: stable presentation. remains a bit more organized and less labile than prior, since increase in abilify dosing. also a bit more tired. T/C moving abilify to HS to prevent daytime sedation. 04/17: lying in bed, calm. does not mention agitation around midnight last night. no complaints or requests. continue current mgmt. continues more organized and less labile. 04/18: MRI brain c/w AD and vascular dementia. start donepezil. remains less labile and irritable since abilify dosing increase. awaiting placement. continue current mgmt. 04/19: appears to be endorsing AH and expressing paranoia re staff today. increase abilify once again, this time with added dose in the evening. otherwise continue current mgmt. 04/20/25: Patient slept for 8 hours, was medication compliant. Denied side effects. However per nursing staff, patient was struggle with taking medication last night. She has sundown symptoms, more irritable in the afternoon and evening. During conversation with this provider, patient reports that she feel irritable but denies anxiety or depression. She said medications do not do anything good. Sucks being in here. Then she is more irritable when we asked about safety concern questions. it Is a bunch of bullshit, I am done talking . However she continued engaged in conversation when this provider review with her regarding Abilify scheduled time of the afternoon dose. She is working on menu at the same time. Per nursing, patient struggle with taking Abilify in the afternoon yesterday, after he she has sundown symptoms. Therefore I will change to 1600 so nursing staff can offer her at around 3 PM. Does not make any paranoid statements. 04/20: tired, resting in the morning. no paranoid delusions expressed. court paperwork completed for affirming HCP. continue current mgmt. 04/22: as for yesterday. reportedly c/o chills, shivering overnight, denies today. afebrile. continue current mgmt. 04/23: continue current tx 04/24: continue current tx 04/25: stable, continue current mgmt. 04/26: no change in presentation. HCP affirmation hearing tomorrow. continue current mgmt. 04/27: no change in presentation. HCP affirmation hearing today. continue current mgmt. 04/28 continue current medications. 04/29 continue tx. 04/30: continue current management and treatment plan. 05/01: continue current management and treatment plan. 05/02: Continue current management and treatment plan. 05/03 continue tx. 05/04 continue tx 05/05 continue tx. 05/06 continue tx. 05/09 continue tx. 05/10 continue tx. 05/11 seen by cardiology re: bradycardia. continue to monitor, do suspect aricept worsening underlying bradycardia. Reason for continued inpatient stay Substantial Risk for: inability to function Time Spent With Patient Time: Total time managing care of this patient today ____ minutes.
[2025-05-11 20:00] VITALS: BP 148/67; PULSE 66; RESP 18; TEMP 36.2; O2SAT 97
[2025-05-12 08:00] VITALS: BP 90/58; PULSE 38; RESP 14; TEMP 2.6; TEMP 36.7; O2SAT 95
[2025-05-12 08:21] VITALS: BMI 17.8
[2025-05-12 08:34] VITALS: BP 90/58
[2025-05-12] MEDS: Butalb/Acetamin/Caff 50/325/40 TABLET 1 TAB PO (08:34)
[2025-05-12 08:53] LABS: Free T4 (Free Thyroxine) 0.72 ng/dL (0.71-1.85); Thyroid Stimulating Hormone 0.05 uIU/mL (0.32-4.0)
--- NOTE | 2025-05-12 18:09 | HO.PSYCHPN ---
Subjective Subjective Date of Service: 05/12/25 Reason For Visit: Bradycardia Subjective Notes: Conditional Voluntary Interim History: Pt slept through the night. She denies any physical pain. She is smiling. Mostly in her room, but reports doing well. No SI/HI. No aggression towards self or others. Medication Compliance: Yes Review of Systems Review of Systems Denied Yes all other systems are reviewed and are negative Mental Status Exam Mental Status Exam Narrative: Appearance: wearing hospital gown, thin, very poor hygiene, , in NAD Behavior: superficially cooperative; isolative Psychomotor: Some psychomotor retardation Speech: mostly clear, normal rate/rhythm/volume, spontaneous TP: Goal directed; can be circumstantial TC: wanting to go home Mood: just chilling out Affect: congruent SI: denies HI: denies VH/AH: no signs Delusions: no overt delusional content but noted confabulation. Insight/judgment: impaired x 2. memory/cog: alert, oriented to place, month and year but not to situation. Significant difficulty remembering events that led to this admission. MOCA Diagnostics Vital Signs (24Hr): Vital Signs - 24 hr 05/11/25 20:00 05/12/25 08:00 05/12/25 08:34 Temperature 97.1 F 36.7 F L Pulse Rate 66 38 L Respiratory Rate 18 14 Blood Pressure 148/67 H 90/58 L 90/58 L Pulse Oximetry 97 95 Oxygen Delivery Method Room Air Room Air 05/12/25 08:34 Temperature Pulse Rate Respiratory Rate Blood Pressure 90/58 L Pulse Oximetry Oxygen Delivery Method BMI result Body Mass Index 17.8 Labs 05/06/25 18:30 05/06/25 18:30 Labs: Laboratory Results - last 48 hr 05/12/25 07:34 TSH 0.05 L Free T4 0.72 Imaging Radiology Impressions: ITS Impressions Thyroid Ultrasound 04/03/25 11:58 IMPRESSION: Heterogeneous hypervascular thyroid gland. No discrete nodules are identified. ACR TI-RADS Guidelines TR1 (0 points): Benign. No follow-up or biopsy required TR2 (2 points): Not Suspicious. No biopsy or follow up indicated TR3 (3 points): Mildly Suspicious. FNA if >= 2.5 cm, Follow if >= 1.5 cm TR4 (4-6 points): Moderately Suspicious. FNA if >= 1.5 cm, Follow if >= 1.0 cm TR5 (>=7 points): Highly Suspicious. FNA if >= 1.0 cm, Follow if >= 0.5 cm Electronically signed by: García Young MD 04/04/2025 07:08 AM EDT RP Abdomen X-Ray 04/05/25 11:25 IMPRESSION: No radiopaque foreign body is identified. Electronically signed by: García Young MD 04/05/2025 11:45 AM EDT RP Chest X-Ray 04/05/25 11:25 IMPRESSION: Clear lungs. No radiopaque foreign body is identified. Electronically signed by: García Young MD 04/05/2025 11:46 AM EDT RP Skull X-Ray 04/05/25 11:25 IMPRESSION: No radiopaque foreign body is identified. Electronically signed by: García Young MD 04/05/2025 11:47 AM EDT RP Brain MRI 04/05/25 11:38 IMPRESSION: 1. No evidence of intracranial hemorrhage, acute infarction, mass effect, or edema. 2. Age advanced cerebral and cerebellar volume loss. Please refer to the above, and the full neuroquantitative report included with the examination. 3. Moderate to severe changes of small vessel ischemia. 4. Crib d'etat appearance of the basal ganglia suggestive of sequela of chronic hypertension. Electronically signed by: Ruddy Moreau MD 04/18/2025 08:28 AM EDT Medications Medications Current Medications Acetaminophen (Acetaminophen 325 Mg Tablet) 650 mg PO Q6H PRN PRN Reason: Pain 1-10 or headache Last Admin: 05/10/25 19:56 Dose: 650 mg Acetaminophen/Butalbital/Caffeine (Butalb/Acetamin/Caff 50/325/40 Tablet) 1 tab PO BID PRN PRN Reason: Pain, Moderate(Pain Scale 4-6) Last Admin: 05/12/25 08:34 Dose: 1 tab Al Hydroxide/Mg Hydroxide (Magnesium Hydrox/Alum Hydrox 30 Ml Oral.Susp) 30 ml PO Q6H PRN PRN Reason: Heartburn/Nausea Amlodipine Besylate (Amlodipine Besylate 5 Mg Tablet) 5 mg PO DAILY [facility], [facility]; Protocol Last Admin: 05/12/25 08:34 Dose: 5 mg Aripiprazole (Aripiprazole 15 Mg Tablet) 15 mg PO DAILY [facility] Last Admin: 05/12/25 08:35 Dose: 15 mg Aripiprazole (Aripiprazole 5 Mg Tablet) 5 mg PO DAILY@1600 [facility]1983 Last Admin: 05/12/25 16:52 Dose: 5 mg Atorvastatin Calcium (Atorvastatin Calcium 80 Mg Tablet) 80 mg PO DAILY [facility] Last Admin: 05/12/25 08:34 Dose: 80 mg Donepezil HCl (Donepezil Hcl 5 Mg Tablet) 5 mg PO BEDTIME [facility] Last Admin: 05/11/25 20:25 Dose: 5 mg Magnesium Hydroxide (Milk Of Magnesia 30 Ml Oral.Susp) 30 ml PO DAILY PRN PRN Reason: Constipation Methimazole (Methimazole 10 Mg Tablet) 10 mg PO DAILY [facility] Last Admin: 05/12/25 08:34 Dose: 10 mg Mirtazapine (Mirtazapine 15 Mg Tablet) 15 mg PO BEDTIME [facility] Last Admin: 05/11/25 20:25 Dose: 15 mg Nicotine Polacrilex (Nicotine Polacrilex 2 Mg Gum) 4 mg BUCCAL Q2H PRN PRN Reason: Nicotine Cravings Olanzapine (Olanzapine 5 Mg Tablet) 5 mg PO TID PRN PRN Reason: agitation Last Admin: 05/02/25 15:15 Dose: 5 mg Omeprazole (Omeprazole 20 Mg Capsule.Dr) 20 mg PO DAILY@0630 [facility] Last Admin: 05/12/25 06:29 Dose: 20 mg Spironolactone (Spironolactone 25 Mg Tablet) 25 mg PO DAILY [facility]; Protocol Last Admin: 05/12/25 08:34 Dose: 25 mg Trazodone HCl (Trazodone Hcl 25 Mg Halftab) 25 mg PO BEDTIME MRX1 PRN PRN Reason: Insomnia Last Admin: 04/26/25 21:20 Dose: 25 mg Trazodone HCl (Trazodone Hcl 25 Mg Halftab) 12.5 mg PO Q6H PRN PRN Reason: anxiety/agitation Allergies Allergies Allergy/AdvReac Type Severity Reaction Status Date / Time codeine Allergy Intermediate hives Verified 03/28/25 21:43 NSAIDS (Non-Steroidal AdvReac Severe gi bleed Verified 04/05/25 10:40 Anti-Inflamma Assessment & Plan Assessment & Plan (1) MDD (major depressive disorder), recurrent episode, moderate: Status: Acute Code(s): F33.1 - Major depressive disorder, recurrent, moderate (2) Major neurocognitive disorder, due to another medical condition, with behavioral disturbance, severe: Status: Acute Code(s): F02.C18 - Dementia in other diseases classified elsewhere, severe, with other behavioral disturbance (3) Graves disease: Status: Acute Code(s): E05.00 - Thyrotoxicosis with diffuse goiter without thyrotoxic crisis or storm Assessment and Plan: Pt is a 70-year-old female with a PMH significant for?HLD/CAD, NSTEMI 17 years ago, HTN, HFpEF, aniety, and depression who is admitted to [facility] for increasing depression with SI. Pt initially presented to [facility] for profound lethargy and inability to function at home. Workup was negative except for undetectable TSH but T3 and T4 WNL. While in the ED pt became agitated with multiple outbursts, including throwing coffee, kicking and screaming, and swearing at staff. Pt was not redirectable and required IM Zyprexa. Seen today for right ear pain, transaminitis. . Right otitis media. Augmentin 875 mgs BID for 5 days Improved HTN/CAD/HLD Continue amlodipine. Reports hx of NSTEMI 17 years ago No longer taking aspirin or Plavix, unclear if pt stopped taking on her own or at direction of cardiology Continue statin Asymptomatic bradycardia Metoprolol DC Graves disease Thyroid ultrasound without nodules but noted to be hypervascular TSI and TRAb elevated. Free T3 elevated, T4 normal Continue Methimazole 10 mgs daily Repeat labs in one week. Follow labs every 4 weeks. Will need endocrinology follow up. Abdominal pain/transaminitis Abdominal pain resolved If reoccurs we will order HIDA scan Patient reports a history of Hep C- Viral panel undetectable. Patient with a history of EtOH use Abdominal pain resolved. Liver tests reviewed with Dr. Mauro. No further intervention as abdominal pain resolved. Patient refused HIDA scan Hx of HFpEF Not in acute exacerbation Continue spironolactone Thank you for allowing me to participate in the care of this patient. We will continue to follow as needed. Please reconsult of any acute concerns or issues arise Plan Mrs. Martinez is a 70 year-old woman who was initially brought to [facility] due to weakness, profound lethargy and inability to care for herself. While in the ED, pt presented as agitated, combative and reported SI. Daughter reports pt has been struggling to care for herself (house without hot water, in condemnable condition and pt has not showered in several months). Pt is not able to recall events leading to this admission, despite the fact that she is oriented to month, year and place. We discussed risks, benefits and alternative treatment options. Will lower dose of xanax as pt this morning was more somnolent and lethargic although she had not received xanax. Lowered to 0.5mg po TID. continue effexor er 75mg po daily. Pt noted to have BP elevated but this was one point of care- will continue to monitor. No signs of benzo withdrawal. Pending MOCA/ACL. Will also check B12 (note that although no anemia, MCV was high). Repeat of CMP shows some degree of dehydration (elevated BUN from 14 to 23)- encourage fluids. PLAN 04/04 LFTs trending up, GI following, denies any abdominal pain, no vomiting, afebrile. pt confused as to why she is here, somewhat suspicious about her children wanting to leave her here. Will hold on starting medications until LFTs and bilirubin normalizes. Pending US of gallbladder today. 04/05 pt forgetful from day to day, confabulation with often seems more like blaming her children for doing things behind her back and thinks they are lying when law writer explains concern in terms of memory/cog impairments. 04/06 LFTs trending down. Will start abilify for mood/suspiciousness. 04/08 continue tx. 04/09: Continue current regimen and plans. Trial of Fioricet b.i.d. PRN 04/11 increase abilify for mood. reading of MRI with neuroquant- still pending. CAUTION WITH ACETAMINOPHEN AND LFTS. ALSO CAUTION WITH NSAID- not H&H down since admission. She was started on Tapazole 10mg po daily for graves disease- newly dx here. HIDA scan for abdominal pain not completed due to pt declining- may need to reorder if pt presents with abdominal pain or again LFTs elevation. 04/12: stable, demented. asking about discharge home when awaiting placement. MRI c neuroquant pending. stable presentation. continue current mgmt for now. 04/13: poor sleep due to disruptive peer. resting today. no request for discharge. no behavioral issues. continue current mgmt. 04/14: slept 5 hours. somewhat hypomanic today, circumstantial and moderately disorganized. agreeable to stay for the time being, per SW. increase abilify to 15 mg daily for mood stability. call placed to radiology for read on MRI brain done 04/05/25. 04/15: head MRI read remains absent. stable presentation. resting today, not activated or irritable. continue current mgmt. 04/16: stable presentation. remains a bit more organized and less labile than prior, since increase in abilify dosing. also a bit more tired. T/C moving abilify to HS to prevent daytime sedation. 04/17: lying in bed, calm. does not mention agitation around midnight last night. no complaints or requests. continue current mgmt. continues more organized and less labile. 04/18: MRI brain c/w AD and vascular dementia. start donepezil. remains less labile and irritable since abilify dosing increase. awaiting placement. continue current mgmt. 04/19: appears to be endorsing AH and expressing paranoia re staff today. increase abilify once again, this time with added dose in the evening. otherwise continue current mgmt. 04/20/25: Patient slept for 8 hours, was medication compliant. Denied side effects. However per nursing staff, patient was struggle with taking medication last night. She has sundown symptoms, more irritable in the afternoon and evening. During conversation with this provider, patient reports that she feel irritable but denies anxiety or depression. She said medications do not do anything good. Sucks being in here. Then she is more irritable when we asked about safety concern questions. it Is a bunch of bullshit, I am done talking . However she continued engaged in conversation when this provider review with her regarding Abilify scheduled time of the afternoon dose. She is working on menu at the same time. Per nursing, patient struggle with taking Abilify in the afternoon yesterday, after he she has sundown symptoms. Therefore I will change to 1600 so nursing staff can offer her at around 3 PM. Does not make any paranoid statements. 04/20: tired, resting in the morning. no paranoid delusions expressed. court paperwork completed for affirming HCP. continue current mgmt. 04/22: as for yesterday. reportedly c/o chills, shivering overnight, denies today. afebrile. continue current mgmt. 04/23: continue current tx 04/24: continue current tx 04/25: stable, continue current mgmt. 04/26: no change in presentation. HCP affirmation hearing tomorrow. continue current mgmt. 04/27: no change in presentation. HCP affirmation hearing today. continue current mgmt. 04/28 continue current medications. 04/29 continue tx. 04/30: continue current management and treatment plan. 05/01: continue current management and treatment plan. 05/02: Continue current management and treatment plan. 05/03 continue tx. 05/04 continue tx 05/05 continue tx. 05/06 continue tx. 05/09 continue tx. 05/10 continue tx. 05/11 continue tx. monitor HR. 05/12 continue tx. Reason for continued inpatient stay Substantial Risk for: inability to function Time Spent With Patient Time: Total time managing care of this patient today ____ minutes.
[2025-05-12 20:00] VITALS: BP 127/72; PULSE 66; RESP 16; TEMP 36.3; O2SAT 99
--- NOTE | 2025-05-13 | ECG_ITS ---
Test Reason : ck qt Blood Pressure : */* mmHG Vent. Rate : 63 BPM Atrial Rate : 63 BPM P-R Int : 130 ms QRS Dur : 86 ms QT Int : 458 ms P-R-T Axes : 56 17 14 degrees QTcB Int : 468 ms Normal sinus rhythm with sinus arrhythmia Left ventricular hypertrophy with repolarization abnormality ( Sokolow-Perdue , Americo product , Romhilt-Arnold ) Possible Inferior infarct , age undetermined Abnormal ECG When compared with ECG of 07-May-2025 15:55, Premature ventricular complexes are no longer Present Nonspecific T wave abnormality now evident in Inferior leads T wave inversion more evident in Anterolateral leads Referred By: Rukhsana Aleman Electronically Signed By: TALON BERGMAN MD
[2025-05-13] MEDS: Butalb/Acetamin/Caff 50/325/40 TABLET 1 TAB PO (01:20)
[2025-05-13 08:15] VITALS: BP 158/88; PULSE 30; RESP 16; TEMP 36.1; O2SAT 96
--- NOTE | 2025-05-13 08:56 | P.CONHOSP_ITS ---
History of Present Illness Data of Consult Service Date: 05/13/25 Primary Care Provider: Unknown Physician [facility] Social History Household Members: None Housing: House Do you presently have visiting nurse or other home services: No Comment: 5 minute checks Patient Tobacco Use Status: Current everyday Tobacco user Tobacco use type: Cigarette Smoked in Last 30 Days: Yes e-Cigarette/Vaping Use: Never Used Patient Interested in Nicotine Replacement: No Patient Given Instructions on How to Stop Smoking: No Second Hand Smoke Exposure: No Currently Displaying Signs/Symptoms of Drug Intoxication Withdrawal: No Have you been hit, kicked, punched, or otherwise hurt by someone within the past year? If so, by whom?: No Do you feel safe in your current relationship?: No Is there a partner from a previous relationship who is making you feel unsafe now?: No Are you made to feel afraid or neglected: No Spiritual Healthcare Practices: Visit christian intermittently Advance Directives: No Advance Directives Information Provided: Yes Advance Directives on File: No Do you have thoughts of harming others: None Do you have a plan to hurt others: No Plan Recently lost weight without trying: No Nutrition Risks: No Nutritional Risk Patient : No : No Poor oral hygiene: No service: No Sexual orientation: Straight/Heterosexual Meds Allergies Allergy/AdvReac Type Severity Reaction Status Date / Time codeine Allergy Intermediate hives Verified 03/28/25 21:43 NSAIDS (Non-Steroidal AdvReac Severe gi bleed Verified 04/05/25 10:40 Anti-Inflamma Active Medications: Current Medications Acetaminophen (Acetaminophen 325 Mg Tablet) 650 mg PO Q6H PRN PRN Reason: Pain 1-10 or headache Last Admin: 05/10/25 19:56 Dose: 650 mg Acetaminophen/Butalbital/Caffeine (Butalb/Acetamin/Caff 50/325/40 Tablet) 1 tab PO BID PRN PRN Reason: Pain, Moderate(Pain Scale 4-6) Last Admin: 05/13/25 01:20 Dose: 1 tab Al Hydroxide/Mg Hydroxide (Magnesium Hydrox/Alum Hydrox 30 Ml Oral.Susp) 30 ml PO Q6H PRN PRN Reason: Heartburn/Nausea Amlodipine Besylate (Amlodipine Besylate 5 Mg Tablet) 5 mg PO DAILY [facility]; Protocol Last Admin: 05/12/25 08:34 Dose: 5 mg Aripiprazole (Aripiprazole 15 Mg Tablet) 15 mg PO DAILY [facility] Last Admin: 05/12/25 08:35 Dose: 15 mg Aripiprazole (Aripiprazole 5 Mg Tablet) 5 mg PO DAILY@1600 [facility] Last Admin: 05/12/25 16:52 Dose: 5 mg Atorvastatin Calcium (Atorvastatin Calcium 80 Mg Tablet) 80 mg PO DAILY [facility] Last Admin: 05/12/25 08:34 Dose: 80 mg Magnesium Hydroxide (Milk Of Magnesia 30 Ml Oral.Susp) 30 ml PO DAILY PRN PRN Reason: Constipation Methimazole (Methimazole 10 Mg Tablet) 10 mg PO DAILY [facility] Last Admin: 05/12/25 08:34 Dose: 10 mg Mirtazapine (Mirtazapine 15 Mg Tablet) 15 mg PO BEDTIME [facility] Last Admin: 05/12/25 20:44 Dose: 15 mg Nicotine Polacrilex (Nicotine Polacrilex 2 Mg Gum) 4 mg BUCCAL Q2H PRN PRN Reason: Nicotine Cravings Olanzapine (Olanzapine 5 Mg Tablet) 5 mg PO TID PRN PRN Reason: agitation Last Admin: 05/02/25 15:15 Dose: 5 mg Omeprazole (Omeprazole 20 Mg Capsule.Dr) 20 mg PO DAILY@0630 [facility] Last Admin: 05/13/25 06:35 Dose: 20 mg Spironolactone (Spironolactone 25 Mg Tablet) 25 mg PO DAILY [facility]; Protocol Last Admin: 05/12/25 08:34 Dose: 25 mg Trazodone HCl (Trazodone Hcl 25 Mg Halftab) 25 mg PO BEDTIME MRX1 PRN PRN Reason: Insomnia Last Admin: 04/26/25 21:20 Dose: 25 mg Trazodone HCl (Trazodone Hcl 25 Mg Halftab) 12.5 mg PO Q6H PRN PRN Reason: anxiety/agitation Home Medications ?Medication ?Instructions ?Recorded ?Confirmed ?Last Taken ?Type alprazolam 1 mg tablet 1 mg PO TID 03/29/25 5 03/28/25 18:16 History esomeprazole magnesium 20 mg 20 mg PO DAILY 03/29/25 0 03/29/25 Unknown History capsule,delayed release (Nexium) metoprolol succinate 25 mg 25 mg PO DAILY 03/29/25 Unknown History tablet,extended release 24 hr (Toprol XL) rosuvastatin 40 mg tablet (Crestor) 40 mg PO DAILY 03/29/25 Unknown History spironolactone 25 mg tablet 25 mg PO DAILY 03/29/25 Unknown History venlafaxine 75 mg tablet,extended 75 mg PO QAM 5 03/29/25 Unknown History release 24 hr Physical Exam 2 Vital Signs and Narrative: Vital Signs: Last Vital Signs Temp 97.3 F 05/12/25 20:00 Pulse 66 05/12/25 20:00 Resp 16 05/12/25 20:00 BP 127/72 05/12/25 20:00 Pulse Ox 99 05/12/25 20:00 O2 Del Method Room Air 05/12/25 20:00 BMI result Body Mass Index 17.8 Results Labs 05/06/25 18:30 05/06/25 18:30 Labs: Laboratory Results - last 24 hr 05/12/25 07:34 Free T3 2.3
--- NOTE | 2025-05-13 09:16 | P.PNPSI_ITS ---
Subjective Subjective Date of Service: 05/13/25 Reason For Visit: Bradycardia Subjective Notes: Conditional Voluntary Interim History: Pt slept through the night. She had episode of bradicardia, as low as 30. Seen by hospitalist. Will discontinue aricept, hospitalist decreased Methimazole. continue to monitor HR. Pt presents with bright affect. She denies any concerns. No psychosis or delusional content. No behavioral concerns. Medication Compliance: Yes Review of Systems Review of Systems Denies any shortness of breath, chest pain, dizziness, lightheadedness, abdominal pain or discomfort, nausea vomiting or diarrhea Yes all other systems are reviewed and are negative Mental Status Exam Mental Status Exam Narrative: Appearance: wearing hospital gown, thin, very poor hygiene, , in NAD Behavior: superficially cooperative; isolative Psychomotor: Some psychomotor retardation Speech: mostly clear, normal rate/rhythm/volume, spontaneous TP: Goal directed; can be circumstantial TC: wanting to go home Mood: just chilling out Affect: congruent SI: denies HI: denies VH/AH: no signs Delusions: no overt delusional content but noted confabulation. Insight/judgment: impaired x 2. memory/cog: alert, oriented to place, month and year but not to situation. Significant difficulty remembering events that led to this admission. MOCA Diagnostics Vital Signs (24Hr): Vital Signs - 24 hr 05/12/25 20:00 05/13/25 08:15 Temperature 97.3 F 97 F Pulse Rate 66 30 L Respiratory Rate 16 16 Blood Pressure 127/72 158/88 H Pulse Oximetry 99 96 Oxygen Delivery Method Room Air Room Air BMI result Body Mass Index 17.8 Labs 05/13/25 10:05 05/13/25 10:05 Labs: Laboratory Results - last 48 hr 05/12/25 07:34 TSH 0.05 L Free T4 0.72 Free T3 2.3 Imaging Radiology Impressions: ITS Impressions Thyroid Ultrasound 04/03/25 11:58 IMPRESSION: Heterogeneous hypervascular thyroid gland. No discrete nodules are identified. ACR TI-RADS Guidelines TR1 (0 points): Benign. No follow-up or biopsy required TR2 (2 points): Not Suspicious. No biopsy or follow up indicated TR3 (3 points): Mildly Suspicious. FNA if >= 2.5 cm, Follow if >= 1.5 cm TR4 (4-6 points): Moderately Suspicious. FNA if >= 1.5 cm, Follow if >= 1.0 cm TR5 (>=7 points): Highly Suspicious. FNA if >= 1.0 cm, Follow if >= 0.5 cm Electronically signed by: García Young MD 04/04/2025 07:08 AM EDT RP Abdomen X-Ray 04/05/25 11:25 IMPRESSION: No radiopaque foreign body is identified. Electronically signed by: García Young MD 04/05/2025 11:45 AM EDT RP Chest X-Ray 04/05/25 11:25 IMPRESSION: Clear lungs. No radiopaque foreign body is identified. Electronically signed by: García Young MD 04/05/2025 11:46 AM EDT RP Skull X-Ray 04/05/25 11:25 IMPRESSION: No radiopaque foreign body is identified. Electronically signed by: García Young MD 04/05/2025 11:47 AM EDT RP Brain MRI 04/05/25 11:38 IMPRESSION: 1. No evidence of intracranial hemorrhage, acute infarction, mass effect, or edema. 2. Age advanced cerebral and cerebellar volume loss. Please refer to the above, and the full neuroquantitative report included with the examination. 3. Moderate to severe changes of small vessel ischemia. 4. Crib d'etat appearance of the basal ganglia suggestive of sequela of chronic hypertension. Electronically signed by: Ruddy Moreau MD 04/18/2025 08:28 AM EDT RP Medications Medications Current Medications Acetaminophen (Acetaminophen 325 Mg Tablet) 650 mg PO Q6H PRN PRN Reason: Pain 1-10 or headache Last Admin: 05/10/25 19:56 Dose: 650 mg Acetaminophen/Butalbital/Caffeine (Butalb/Acetamin/Caff 50/325/40 Tablet) 1 tab PO BID PRN PRN Reason: Pain, Moderate(Pain Scale 4-6) Last Admin: 05/13/25 01:20 Dose: 1 tab Al Hydroxide/Mg Hydroxide (Magnesium Hydrox/Alum Hydrox 30 Ml Oral.Susp) 30 ml PO Q6H PRN PRN Reason: Heartburn/Nausea Amlodipine Besylate (Amlodipine Besylate 5 Mg Tablet) 5 mg PO DAILY [facility]; Protocol Last Admin: 05/12/25 08:34 Dose: 5 mg Aripiprazole (Aripiprazole 15 Mg Tablet) 15 mg PO DAILY [facility] Last Admin: 05/12/25 08:35 Dose: 15 mg Aripiprazole (Aripiprazole 5 Mg Tablet) 5 mg PO DAILY@1600 [facility] Last Admin: 05/12/25 16:52 Dose: 5 mg Atorvastatin Calcium (Atorvastatin Calcium 80 Mg Tablet) 80 mg PO DAILY [facility] Last Admin: 05/12/25 08:34 Dose: 80 mg Magnesium Hydroxide (Milk Of Magnesia 30 Ml Oral.Susp) 30 ml PO DAILY PRN PRN Reason: Constipation Methimazole (Methimazole 10 Mg Tablet) 10 mg PO DAILY [facility] Last Admin: 05/12/25 08:34 Dose: 10 mg Mirtazapine (Mirtazapine 15 Mg Tablet) 15 mg PO BEDTIME [facility] Last Admin: 05/12/25 20:44 Dose: 15 mg Nicotine Polacrilex (Nicotine Polacrilex 2 Mg Gum) 4 mg BUCCAL Q2H PRN PRN Reason: Nicotine Cravings Olanzapine (Olanzapine 5 Mg Tablet) 5 mg PO TID PRN PRN Reason: agitation Last Admin: 05/02/25 15:15 Dose: 5 mg Omeprazole (Omeprazole 20 Mg Capsule.Dr) 20 mg PO DAILY@0630 [facility] Last Admin: 05/13/25 06:35 Dose: 20 mg Spironolactone (Spironolactone 25 Mg Tablet) 25 mg PO DAILY [facility]; Protocol Last Admin: 05/12/25 08:34 Dose: 25 mg Trazodone HCl (Trazodone Hcl 25 Mg Halftab) 25 mg PO BEDTIME MRX1 PRN PRN Reason: Insomnia Last Admin: 04/26/25 21:20 Dose: 25 mg Trazodone HCl (Trazodone Hcl 25 Mg Halftab) 12.5 mg PO Q6H PRN PRN Reason: anxiety/agitation Allergies Allergies Allergy/AdvReac Type Severity Reaction Status Date / Time codeine Allergy Intermediate hives Verified 03/28/25 21:43 NSAIDS (Non-Steroidal AdvReac Severe gi bleed Verified 04/05/25 10:40 Anti-Inflamma Assessment & Plan Assessment & Plan (1) MDD (major depressive disorder), recurrent episode, moderate: Status: Acute Code(s): F33.1 - Major depressive disorder, recurrent, moderate (2) Major neurocognitive disorder, due to another medical condition, with behavioral disturbance, severe: Status: Acute Code(s): F02.C18 - Dementia in other diseases classified elsewhere, severe, with other behavioral disturbance (3) Graves disease: Status: Acute Code(s): E05.00 - Thyrotoxicosis with diffuse goiter without thyrotoxic crisis or storm Assessment and Plan: Pt is a 70-year-old female with a PMH significant for?HLD/CAD, NSTEMI 17 years ago, HTN, HFpEF, aniety, and depression who is admitted to [facility] for increasing depression with SI. Pt initially presented to [facility] for profound lethargy and inability to function at home. Workup was negative except for undetectable TSH but T3 and T4 WNL. While in the ED pt became agitated with multiple outbursts, including throwing coffee, kicking and screaming, and swearing at staff. Pt was not redirectable and required IM Zyprexa. Seen today for right ear pain, transaminitis. . Right otitis media. Augmentin 875 mgs BID for 5 days Improved HTN/CAD/HLD Continue amlodipine. Reports hx of NSTEMI 17 years ago No longer taking aspirin or Plavix, unclear if pt stopped taking on her own or at direction of cardiology Continue statin Asymptomatic bradycardia Metoprolol DC Graves disease Thyroid ultrasound without nodules but noted to be hypervascular TSI and TRAb elevated. Free T3 elevated, T4 normal Continue Methimazole 10 mgs daily Repeat labs in one week. Follow labs every 4 weeks. Will need endocrinology follow up. Abdominal pain/transaminitis Abdominal pain resolved If reoccurs we will order HIDA scan Patient reports a history of Hep C- Viral panel undetectable. Patient with a history of EtOH use Abdominal pain resolved. Liver tests reviewed with Dr. Mauro. No further intervention as abdominal pain resolved. Patient refused HIDA scan Hx of HFpEF Not in acute exacerbation Continue spironolactone Thank you for allowing me to participate in the care of this patient. We will continue to follow as needed. Please reconsult of any acute concerns or issues arise Plan Mrs. Marchalsea is a 70 year-old woman who was initially brought to [facility] due to weakness, profound lethargy and inability to care for herself. While in the ED, pt presented as agitated, combative and reported SI. Daughter reports pt has been struggling to care for herself (house without hot water, in condemnable condition and pt has not showered in several months). Pt is not able to recall events leading to this admission, despite the fact that she is oriented to month, year and place. We discussed risks, benefits and alternative treatment options. Will lower dose of xanax as pt this morning was more somnolent and lethargic although she had not received xanax. Lowered to 0.5mg po TID. continue effexor er 75mg po daily. Pt noted to have BP elevated but this was one point of care- will continue to monitor. No signs of benzo withdrawal. Pending MOCA/ACL. Will also check B12 (note that although no anemia, MCV was high). Repeat of CMP shows some degree of dehydration (elevated BUN from 14 to 23)- encourage fluids. PLAN 04/04 LFTs trending up, GI following, denies any abdominal pain, no vomiting, afebrile. pt confused as to why she is here, somewhat suspicious about her children wanting to leave her here. Will hold on starting medications until LFTs and bilirubin normalizes. Pending US of gallbladder today. 04/05 pt forgetful from day to day, confabulation with often seems more like blaming her children for doing things behind her back and thinks they are lying when appeals writer explains concern in terms of memory/cog impairments. 04/06 LFTs trending down. Will start abilify for mood/suspiciousness. 04/08 continue tx. 04/09: Continue current regimen and plans. Trial of Fioricet b.i.d. PRN 04/11 increase abilify for mood. reading of MRI with neuroquant- still pending. CAUTION WITH ACETAMINOPHEN AND LFTS. ALSO CAUTION WITH NSAID- not H&H down since admission. She was started on Tapazole 10mg po daily for graves disease- newly dx here. HIDA scan for abdominal pain not completed due to pt declining- may need to reorder if pt presents with abdominal pain or again LFTs elevation. 04/12: stable, demented. asking about discharge home when awaiting placement. MRI c neuroquant pending. stable presentation. continue current mgmt for now. 04/13: poor sleep due to disruptive peer. resting today. no request for discharge. no behavioral issues. continue current mgmt. 04/14: slept 5 hours. somewhat hypomanic today, circumstantial and moderately disorganized. agreeable to stay for the time being, per SW. increase abilify to 15 mg daily for mood stability. call placed to radiology for read on MRI brain done 04/05/25. 04/15: head MRI read remains absent. stable presentation. resting today, not activated or irritable. continue current mgmt. 04/16: stable presentation. remains a bit more organized and less labile than prior, since increase in abilify dosing. also a bit more tired. T/C moving abilify to HS to prevent daytime sedation. 04/17: lying in bed, calm. does not mention agitation around midnight last night. no complaints or requests. continue current mgmt. continues more organized and less labile. 04/18: MRI brain c/w AD and vascular dementia. start donepezil. remains less labile and irritable since abilify dosing increase. awaiting placement. continue current mgmt. 04/19: appears to be endorsing AH and expressing paranoia re staff today. increase abilify once again, this time with added dose in the evening. otherwise continue current mgmt. 04/20/25: Patient slept for 8 hours, was medication compliant. Denied side effects. However per nursing staff, patient was struggle with taking medication last night. She has sundown symptoms, more irritable in the afternoon and evening. During conversation with this provider, patient reports that she feel irritable but denies anxiety or depression. She said medications do not do anything good. Sucks being in here. Then she is more irritable when we asked about safety concern questions. it Is a bunch of bullshit, I am done talking . However she continued engaged in conversation when this provider review with her regarding Abilify scheduled time of the afternoon dose. She is working on menu at the same time. Per nursing, patient struggle with taking Abilify in the afternoon yesterday, after he she has sundown symptoms. Therefore I will change to 1600 so nursing staff can offer her at around 3 PM. Does not make any paranoid statements. 04/20: tired, resting in the morning. no paranoid delusions expressed. court paperwork completed for affirming HCP. continue current mgmt. 04/22: as for yesterday. reportedly c/o chills, shivering overnight, denies today. afebrile. continue current mgmt. 04/23: continue current tx 04/24: continue current tx 04/25: stable, continue current mgmt. 04/26: no change in presentation. HCP affirmation hearing tomorrow. continue current mgmt. 04/27: no change in presentation. HCP affirmation hearing today. continue current mgmt. 04/28 continue current medications. 04/29 continue tx. 04/30: continue current management and treatment plan. 05/01: continue current management and treatment plan. 05/02: Continue current management and treatment plan. 05/03 continue tx. 05/04 continue tx 05/05 continue tx. 05/06 continue tx. 05/09 continue tx. 05/10 continue tx. 05/11 continue tx. monitor HR. 05/12 continue tx. 05/13 continue tx. monitor HR, expecting some improvement with d/c of aricept, reduction of methimazole. Reason for continued inpatient stay Substantial Risk for: inability to function Time Spent With Patient Time: Total time managing care of this patient today ____ minutes.
--- NOTE | 2025-05-13 09:21 | P.PNIM_ITS ---
Subjective Subjective Date of Service: 05/13/25 Interval History: Patient is seen for ongoing bradycardia and elevated liver function tests and hyperthyroidism. Patient was seen in the past by Dr. Mauro, a HIDA scan was recommended but patient declined at that time. Patient with LFTs initially trending up, now stable. . Patient also noted to have a heart rate in the 30s this morning. On exam her heart rate was 46 apical. She was seen by Cardiology recently. On exam she is awake alert, pleasant, denies any shortness of breath, dizziness, lightheadedness, headaches, chest pain or any other concerning symptoms. She reports that she feels ?fine . Appetite within normal limits she is out of bed eating. Denies any abdominal pain. Reviewed thyroid panel. methimazole dose decreased. Review of Systems Denies any shortness of breath, chest pain, dizziness, lightheadedness, abdominal pain or discomfort, nausea vomiting or diarrhea Physical Exam 2 Exam: Exam: Denies any shortness of breath, chest pain, dizziness, lightheadedness, abdominal pain or discomfort, nausea vomiting or diarrhea Vital Signs: Vital Signs: Last Vital Signs Temp 97 F 05/13/25 08:15 Pulse 30 L 05/13/25 08:15 Resp 16 05/13/25 08:15 BP 158/88 H 05/13/25 08:15 Pulse Ox 96 05/13/25 08:15 O2 Del Method Room Air 05/13/25 08:15 BMI result Body Mass Index 17.8 Objective Data Active Medications Acetaminophen (Acetaminophen 325 Mg Tablet) 650 mg PO Q6H PRN PRN Reason: Pain 1-10 or headache Last Admin: 05/10/25 19:56 Dose: 650 mg Documented By: NICA Acetaminophen/Butalbital/Caffeine (Butalb/Acetamin/Caff 50/325/40 Tablet) 1 tab PO BID PRN PRN Reason: Pain, Moderate(Pain Scale 4-6) Last Admin: 05/13/25 01:20 Dose: 1 tab Documented By: HUNTER Al Hydroxide/Mg Hydroxide (Magnesium Hydrox/Alum Hydrox 30 Ml Oral.Susp) 30 ml PO Q6H PRN PRN Reason: Heartburn/Nausea Amlodipine Besylate (Amlodipine Besylate 5 Mg Tablet) 5 mg PO DAILY [facility]; Protocol Last Admin: 05/12/25 08:34 Dose: 5 mg Documented By: JONE Aripiprazole (Aripiprazole 15 Mg Tablet) 15 mg PO DAILY [facility] Last Admin: 05/12/25 08:35 Dose: 15 mg Documented By: JONE Aripiprazole (Aripiprazole 5 Mg Tablet) 5 mg PO DAILY@1600 [facility] Last Admin: 05/12/25 16:52 Dose: 5 mg Documented By: JONE Atorvastatin Calcium (Atorvastatin Calcium 80 Mg Tablet) 80 mg PO DAILY [facility] Last Admin: 05/12/25 08:34 Dose: 80 mg Documented By: JONE Magnesium Hydroxide (Milk Of Magnesia 30 Ml Oral.Susp) 30 ml PO DAILY PRN PRN Reason: Constipation Methimazole (Methimazole 10 Mg Tablet) 10 mg PO DAILY [facility] Last Admin: 05/12/25 08:34 Dose: 10 mg Documented By: JONE Mirtazapine (Mirtazapine 15 Mg Tablet) 15 mg PO BEDTIME [facility] Last Admin: 05/12/25 20:44 Dose: 15 mg Documented By: HUNTER Nicotine Polacrilex (Nicotine Polacrilex 2 Mg Gum) 4 mg BUCCAL Q2H PRN PRN Reason: Nicotine Cravings Olanzapine (Olanzapine 5 Mg Tablet) 5 mg PO TID PRN PRN Reason: agitation Last Admin: 05/02/25 15:15 Dose: 5 mg Documented By: AMBROSIO Omeprazole (Omeprazole 20 Mg Capsule.Dr) 20 mg PO DAILY@0630 [facility] Last Admin: 05/13/25 06:35 Dose: 20 mg Documented By: HUNTER Spironolactone (Spironolactone 25 Mg Tablet) 25 mg PO DAILY [facility]; Protocol Last Admin: 05/12/25 08:34 Dose: 25 mg Documented By: JONE Trazodone HCl (Trazodone Hcl 25 Mg Halftab) 25 mg PO BEDTIME MRX1 PRN PRN Reason: Insomnia Last Admin: 04/26/25 21:20 Dose: 25 mg Documented By: WARD Trazodone HCl (Trazodone Hcl 25 Mg Halftab) 12.5 mg PO Q6H PRN PRN Reason: anxiety/agitation Labs 05/06/25 18:30 05/06/25 18:30 Labs: Laboratory Results - last 24 hr 05/12/25 07:34 Free T3 2.3 Assessment and Plan (1) Graves disease: Status: Acute (2) Asymptomatic bradycardia: Status: Acute Plan Pt is a 70-year-old female with a PMH significant for?HLD/CAD, NSTEMI 17 years ago, HTN, HFpEF, aniety, and depression who is admitted to [facility] for increasing depression with SI. Pt initially presented to [facility] for profound lethargy and inability to function at home. Workup was negative except for undetectable TSH but T3 and T4 WNL. While in the ED pt became agitated with multiple outbursts, including throwing coffee, kicking and screaming, and swearing at staff. Pt was not redirectable and required IM Zyprexa. Seen today for bradycardia, transaminitis, follow up hyperthyroidism. HTN/CAD/HLD/Bradycardia Continue amlodipine. Reports hx of NSTEMI 17 years ago No longer taking aspirin or Plavix, off metoprolol Continue statin Asymptomatic bradycardia- seen by Cardiology. Follow EKGs as needed, if patient develops symptoms notify smokehouse operator. Seen 05/07/2025 Patient was started on Aricept which has a side effect of bradycardia, this will be discontinued and follow HR trend to see if this improves. Graves disease Thyroid ultrasound without nodules but noted to be hypervascular, TSI and TRAb elevated. Free T3 0.72, Free T4 2.3 Normalized. On the low end of normal. Decrease Methimazole to 5 mgs daily Follow labs every 4 weeks. Will need endocrinology follow up outpatient Abdominal pain/transaminitis Patient's abdominal exam is benign, denies any abdominal pain. LFTs elevated on 05/06/2025, now trending down. Patient reports a history of Hep C- Viral panel undetectable. Patient with a history of EtOH use If patient develops abdominal discomfort, notify provider. Hx of HFpEF Not in acute exacerbation Continue spironolactone Thank you for allowing me to participate in the care of this patient. Will continue to follow as needed. Please notify provider with any concerns. Quality Stroke Does the patient have a stroke diagnosis?: No VTE Prior VTE?: No VTE Risk Level:: Medical - low VTE Device Contraindication: Treatment Not Indicated VTE Drug Contraindication: Treatment Not Indicated
[2025-05-13 10:11] VITALS: BP 162/82
[2025-05-13 10:12] LABS: Hematocrit 36.1 % (37.0-47.0); Hemoglobin 12.3 g/dl (12.0-16.0); Imm Gran Abs Auto 0.07 X10*3/uL (0.00-0.03); Imm Gran Pct Auto 0.7 % (0.0-0.4); Lymphocytes Absolute Auto 1.3 X10*3/uL (1.2-4.9); MANUAL DIFF FLAG SCAN; Mean Corpuscular HGB Conc 34.1 g/dl (31.0-35.0); Mean Corpuscular Hemoglobin 33.0 pg (27.0-33.0); Mean Corpuscular Volume 96.8 fL (80.0-98.0); NRBC Abs Auto 0.000 X10*3/uL (0.0-0.012); NRBC Pct Auto 0.0 /100WBC (0.0-0.2); Platelet Count 275 X10*3/uL (160-400); Red Blood Count 3.73 X10*6/uL (4.20-5.50); SCAN SMEAR FLAG 1; White Blood Count 10.7 X10*3/uL (4.8-10.8)
[2025-05-13 10:28] LABS: Alanine Aminotransferase 134 U/L (0-31); Albumin Level 3.6 g/dL (3.5-5.0); Alkaline Phosphatase 288 U/L (39-117); Anion Gap 13 (12-20); Aspartate Amino Transferase 72 U/L (5-31); Blood Urea Nitrogen 11 mg/dL (9-16); Calcium 8.9 mg/dL (8.4-10.2); Carbon Dioxide 26 mmol/L (22-29); Chloride 104 mmol/L (96-108); Creatinine Clr Calc Pharmacy 66.6; Estimated Glomerular Filt Rate > 60; Potassium 3.4 mmol/L (3.3-5.1); Sodium 140 mmol/L (135-145); Total Protein 6.5 g/dL (6.5-8.0)
[2025-05-13 10:32] LABS: Albumin Level 3.6 g/dL (3.5-5.0); Alkaline Phosphatase 294 U/L (39-117); Anion Gap 12 (12-20); Aspartate Amino Transferase 84 U/L (5-31); Blood Urea Nitrogen 11 mg/dL (9-16); Calcium 8.9 mg/dL (8.4-10.2); Carbon Dioxide 25 mmol/L (22-29); Chloride 105 mmol/L (96-108); Creatinine Clr Calc Pharmacy 64.4; Estimated Glomerular Filt Rate > 60; Potassium 3.4 mmol/L (3.3-5.1); Sodium 139 mmol/L (135-145); Total Protein 6.6 g/dL (6.5-8.0)
[2025-05-13 10:49] LABS: Alanine Aminotransferase 133 U/L (0-31)
[2025-05-13 12:05] VITALS: BP 147/85
[2025-05-13 20:00] VITALS: BP 135/70; PULSE 63; RESP 16; TEMP 36.6; O2SAT 96
[2025-05-14 08:47] VITALS: BP 115/58; PULSE 55; RESP 16; TEMP 35.7; O2SAT 96
[2025-05-14 20:00] VITALS: BP 124/75; PULSE 63; RESP 17; TEMP 36.1; O2SAT 97
[2025-05-14] MEDS: Butalb/Acetamin/Caff 50/325/40 TABLET 1 TAB PO (21:35)
--- NOTE | 2025-05-14 22:30 | HO.PSYCHPN ---
Subjective Subjective Date of Service: 05/14/25 Reason For Visit: Bradycardia Subjective Notes: Conditional Voluntary Interim History: Patient found in her room. She was cooperative with the encounter. She has tended to keep to her room today. On query, she states she is feeling good, and states that she is pleased at the prospect of staying with her daughter's family after discharge from the hospital. She denies any complaints about her care at this time. She is aware that we are monitoring her heart rate and that it has been variable with drops as low as the 20s. Medication Compliance: Yes Side effects from medications: No Review of Systems Acute medical concerns: No Medical Review of Systems: unchanged Mental Status Exam Mental Status Exam Narrative: Mental Status Exam Narrative: Appearance: wearing hospital gown, thin, very poor hygiene, , in NAD Behavior: isoaltive, cooperative Psychomotor: mild slowing Speech: mostly clear, normal rate/rhythm/volume, spontaneous TP: Goal directed TC: discharge plans/goals Mood: so far so good Affect: congruent SI: denies HI: denies VH/AH: no signs Delusions: no overt delusional content but noted confabulation. Insight/judgment: impaired x 2. memory/cog: alert, oriented to place, month and year but not to situation.Impaired historian Diagnostics Vital Signs (24Hr): Vital Signs - 24 hr 05/14/25 08:47 Temperature 96.3 F L Pulse Rate 55 Respiratory Rate 16 Blood Pressure 115/58 L Pulse Oximetry 96 Oxygen Delivery Method Room Air BMI result Body Mass Index 17.8 Labs 05/13/25 10:05 05/13/25 10:05 Labs: Laboratory Results - last 48 hr 05/12/25 05/13/25 05/13/25 07:34 10:05 10:05 WBC 10.7 RBC 3.73 L Hgb 12.3 Hct 36.1 L MCV 96.8 MCH 33.0 MCHC 34.1 RDW 13.0 Plt Count 275 MPV 10.5 Immature Gran % (Auto) 0.7 H Neut % (Auto) 60.0 Lymph % (Auto) 11.7 L Ellis % (Auto) 6.9 Eos % (Auto) 19.4 H Baso % (Auto) 1.3 Lymph # (Auto) 1.3 Ellis # (Auto) 0.7 Eos # (Auto) 2.1 H Baso # (Auto) 0.1 Abs Immat Gran (auto) 0.07 H Absolute Neuts (auto) 6.4 Absolute Nucleated RBC 0.000 Nucleated RBC % (auto) 0.0 Smear Tech's Comments VERIFIED Sodium 139 140 Potassium 3.4 Chloride Carbon Dioxide Anion Gap BUN Creatinine Estim Creat Clear Calc Estimated GFR Random Glucose Calcium Total Bilirubin AST ALT Alkaline Phosphatase Total Protein Albumin Free T3 2.3 05/13/25 05/13/25 05/13/25 10:05 10:05 10:05 WBC RBC Hgb Hct MCV MCH MCHC RDW Plt Count MPV Immature Gran % (Auto) Neut % (Auto) Lymph % (Auto) Ellis % (Auto) Eos % (Auto) Baso % (Auto) Lymph # (Auto) Ellis # (Auto) Eos # (Auto) Baso # (Auto) Abs Immat Gran (auto) Absolute Neuts (auto) Absolute Nucleated RBC Nucleated RBC % (auto) Smear Tech's Comments Sodium Potassium 3.4 Chloride 105 104 Carbon Dioxide 25 26 Anion Gap 12 BUN Creatinine Estim Creat Clear Calc Estimated GFR Random Glucose Calcium Total Bilirubin AST ALT Alkaline Phosphatase Total Protein Albumin Free T3 05/13/25 05/13/25 05/13/25 10:05 10:05 10:05 WBC RBC Hgb Hct MCV MCH MCHC RDW Plt Count MPV Immature Gran % (Auto) Neut % (Auto) Lymph % (Auto) Ellis % (Auto) Eos % (Auto) Baso % (Auto) Lymph # (Auto) Ellis # (Auto) Eos # (Auto) Baso # (Auto) Abs Immat Gran (auto) Absolute Neuts (auto) Absolute Nucleated RBC Nucleated RBC % (auto) Smear Tech's Comments Sodium Potassium Chloride Carbon Dioxide Anion Gap 13 BUN 11 11 Creatinine 0.63 0.61 Estim Creat Clear Calc 64.4 Estimated GFR Random Glucose Calcium Total Bilirubin AST ALT Alkaline Phosphatase Total Protein Albumin Free T3 05/13/25 05/13/25 05/13/25 10:05 10:05 10:05 WBC RBC Hgb Hct MCV MCH MCHC RDW Plt Count MPV Immature Gran % (Auto) Neut % (Auto) Lymph % (Auto) Ellis % (Auto) Eos % (Auto) Baso % (Auto) Lymph # (Auto) Ellis # (Auto) Eos # (Auto) Baso # (Auto) Abs Immat Gran (auto) Absolute Neuts (auto) Absolute Nucleated RBC Nucleated RBC % (auto) Smear Tech's Comments Sodium Potassium Chloride Carbon Dioxide Anion Gap BUN Creatinine Estim Creat Clear Calc 66.6 Estimated GFR > 60 > 60 Random Glucose 188 H 189 H Calcium 8.9 Total Bilirubin AST ALT Alkaline Phosphatase Total Protein Albumin Free T3 05/13/25 05/13/25 05/13/25 10:05 10:05 10:05 WBC RBC Hgb Hct MCV MCH MCHC RDW Plt Count MPV Immature Gran % (Auto) Neut % (Auto) Lymph % (Auto) Ellis % (Auto) Eos % (Auto) Baso % (Auto) Lymph # (Auto) Ellis # (Auto) Eos # (Auto) Baso # (Auto) Abs Immat Gran (auto) Absolute Neuts (auto) Absolute Nucleated RBC Nucleated RBC % (auto) Smear Tech's Comments Sodium Potassium Chloride Carbon Dioxide Anion Gap BUN Creatinine Estim Creat Clear Calc Estimated GFR Random Glucose Calcium 8.9 Total Bilirubin 0.2 0.2 AST 84 H 72 H ALT 133 H Alkaline Phosphatase Total Protein Albumin Free T3 05/13/25 05/13/25 05/13/25 10:05 10:05 10:05 WBC RBC Hgb Hct MCV MCH MCHC RDW Plt Count MPV Immature Gran % (Auto) Neut % (Auto) Lymph % (Auto) Ellis % (Auto) Eos % (Auto) Baso % (Auto) Lymph # (Auto) Ellis # (Auto) Eos # (Auto) Baso # (Auto) Abs Immat Gran (auto) Absolute Neuts (auto) Absolute Nucleated RBC Nucleated RBC % (auto) Smear Tech's Comments Sodium Potassium Chloride Carbon Dioxide Anion Gap BUN Creatinine Estim Creat Clear Calc Estimated GFR Random Glucose Calcium Total Bilirubin AST ALT 134 H Alkaline Phosphatase 294 H 288 H Total Protein 6.6 6.5 Albumin 3.6 Free T3 05/13/25 10:05 WBC RBC Hgb Hct MCV MCH MCHC RDW Plt Count MPV Immature Gran % (Auto) Neut % (Auto) Lymph % (Auto) Ellis % (Auto) Eos % (Auto) Baso % (Auto) Lymph # (Auto) Ellis # (Auto) Eos # (Auto) Baso # (Auto) Abs Immat Gran (auto) Absolute Neuts (auto) Absolute Nucleated RBC Nucleated RBC % (auto) Smear Tech's Comments Sodium Potassium Chloride Carbon Dioxide Anion Gap BUN Creatinine Estim Creat Clear Calc Estimated GFR Random Glucose Calcium Total Bilirubin AST ALT Alkaline Phosphatase Total Protein Albumin 3.6 Free T3 Imaging Radiology Impressions: ITS Impressions Thyroid Ultrasound 04/03/25 11:58 IMPRESSION: Heterogeneous hypervascular thyroid gland. No discrete nodules are identified. ACR TI-RADS Guidelines TR1 (0 points): Benign. No follow-up or biopsy required TR2 (2 points): Not Suspicious. No biopsy or follow up indicated TR3 (3 points): Mildly Suspicious. FNA if >= 2.5 cm, Follow if >= 1.5 cm TR4 (4-6 points): Moderately Suspicious. FNA if >= 1.5 cm, Follow if >= 1.0 cm TR5 (>=7 points): Highly Suspicious. FNA if >= 1.0 cm, Follow if >= 0.5 cm Electronically signed by: García Young MD 04/04/2025 07:08 AM EDT RP Abdomen X-Ray 04/05/25 11:25 IMPRESSION: No radiopaque foreign body is identified. Electronically signed by: García Young MD 04/05/2025 11:45 AM EDT RP Chest X-Ray 04/05/25 11:25 IMPRESSION: Clear lungs. No radiopaque foreign body is identified. Electronically signed by: García Young MD 04/05/2025 11:46 AM EDT RP Skull X-Ray 04/05/25 11:25 IMPRESSION: No radiopaque foreign body is identified. Electronically signed by: García Young MD 04/05/2025 11:47 AM EDT RP Brain MRI 04/05/25 11:38 IMPRESSION: 1. No evidence of intracranial hemorrhage, acute infarction, mass effect, or edema. 2. Age advanced cerebral and cerebellar volume loss. Please refer to the above, and the full neuroquantitative report included with the examination. 3. Moderate to severe changes of small vessel ischemia. 4. Crib d'etat appearance of the basal ganglia suggestive of sequela of chronic hypertension. Electronically signed by: Ruddy Moreau MD 04/18/2025 08:28 AM EDT Medications Medications Current Medications Acetaminophen (Acetaminophen 325 Mg Tablet) 650 mg PO Q6H PRN PRN Reason: Pain 1-10 or headache Last Admin: 05/14/25 16:33 Dose: 650 mg Acetaminophen/Butalbital/Caffeine (Butalb/Acetamin/Caff 50/325/40 Tablet) 1 tab PO BID PRN PRN Reason: Pain, Moderate(Pain Scale 4-6) Last Admin: 05/14/25 21:35 Dose: 1 tab Al Hydroxide/Mg Hydroxide (Magnesium Hydrox/Alum Hydrox 30 Ml Oral.Susp) 30 ml PO Q6H PRN PRN Reason: Heartburn/Nausea Amlodipine Besylate (Amlodipine Besylate 5 Mg Tablet) 5 mg PO DAILY [facility]; Protocol Last Admin: 05/14/25 09:31 Dose: 5 mg Aripiprazole (Aripiprazole 15 Mg Tablet) 15 mg PO DAILY [facility] Last Admin: 05/14/25 09:31 Dose: 15 mg Aripiprazole (Aripiprazole 5 Mg Tablet) 5 mg PO DAILY@1600 [facility] Last Admin: 05/14/25 16:33 Dose: 5 mg Atorvastatin Calcium (Atorvastatin Calcium 80 Mg Tablet) 80 mg PO DAILY [facility] Last Admin: 05/14/25 09:31 Dose: 80 mg Magnesium Hydroxide (Milk Of Magnesia 30 Ml Oral.Susp) 30 ml PO DAILY PRN PRN Reason: Constipation Methimazole (Methimazole 5 Mg Tablet) 5 mg PO DAILY [facility] Last Admin: 05/14/25 09:31 Dose: 5 mg Mirtazapine (Mirtazapine 15 Mg Tablet) 15 mg PO BEDTIME [facility] Last Admin: 05/14/25 21:09 Dose: 15 mg Nicotine Polacrilex (Nicotine Polacrilex 2 Mg Gum) 4 mg BUCCAL Q2H PRN PRN Reason: Nicotine Cravings Olanzapine (Olanzapine 5 Mg Tablet) 5 mg PO TID PRN PRN Reason: agitation Last Admin: 05/02/25 15:15 Dose: 5 mg Omeprazole (Omeprazole 20 Mg Capsule.Dr) 20 mg PO DAILY@0630 [facility] Last Admin: 05/14/25 06:36 Dose: 20 mg Spironolactone (Spironolactone 25 Mg Tablet) 25 mg PO DAILY [facility]; Protocol Last Admin: 05/14/25 09:31 Dose: 25 mg Trazodone HCl (Trazodone Hcl 25 Mg Halftab) 25 mg PO BEDTIME MRX1 PRN PRN Reason: Insomnia Last Admin: 04/26/25 21:20 Dose: 25 mg Trazodone HCl (Trazodone Hcl 25 Mg Halftab) 12.5 mg PO Q6H PRN PRN Reason: anxiety/agitation Allergies Allergies Allergy/AdvReac Type Severity Reaction Status Date / Time codeine Allergy Intermediate hives Verified 03/28/25 21:43 NSAIDS (Non-Steroidal AdvReac Severe gi bleed Verified 04/05/25 10:40 Anti-Inflamma Assessment & Plan Assessment & Plan (1) MDD (major depressive disorder), recurrent episode, moderate: Status: Acute Code(s): F33.1 - Major depressive disorder, recurrent, moderate (2) Major neurocognitive disorder, due to another medical condition, with behavioral disturbance, severe: Status: Acute Code(s): F02.C18 - Dementia in other diseases classified elsewhere, severe, with other behavioral disturbance (3) Graves disease: Status: Acute Code(s): E05.00 - Thyrotoxicosis with diffuse goiter without thyrotoxic crisis or storm Assessment and Plan: Pt is a 70-year-old female with a PMH significant for?HLD/CAD, NSTEMI 17 years ago, HTN, HFpEF, aniety, and depression who is admitted to [facility] for increasing depression with SI. Pt initially presented to [facility] for profound lethargy and inability to function at home. Workup was negative except for undetectable TSH but T3 and T4 WNL. While in the ED pt became agitated with multiple outbursts, including throwing coffee, kicking and screaming, and swearing at staff. Pt was not redirectable and required IM Zyprexa. Seen today for right ear pain, transaminitis. . Right otitis media. Augmentin 875 mgs BID for 5 days Improved HTN/CAD/HLD Continue amlodipine. Reports hx of NSTEMI 17 years ago No longer taking aspirin or Plavix, unclear if pt stopped taking on her own or at direction of cardiology Continue statin Asymptomatic bradycardia Metoprolol DC Graves disease Thyroid ultrasound without nodules but noted to be hypervascular TSI and TRAb elevated. Free T3 elevated, T4 normal Continue Methimazole 10 mgs daily Repeat labs in one week. Follow labs every 4 weeks. Will need endocrinology follow up. Abdominal pain/transaminitis Abdominal pain resolved If reoccurs we will order HIDA scan Patient reports a history of Hep C- Viral panel undetectable. Patient with a history of EtOH use Abdominal pain resolved. Liver tests reviewed with Dr. Mauro. No further intervention as abdominal pain resolved. Patient refused HIDA scan Hx of HFpEF Not in acute exacerbation Continue spironolactone Thank you for allowing me to participate in the care of this patient. We will continue to follow as needed. Please reconsult of any acute concerns or issues arise Plan Mrs. Martinez is a 70 year-old woman who was initially brought to [facility] due to weakness, profound lethargy and inability to care for herself. While in the ED, pt presented as agitated, combative and reported SI. Daughter reports pt has been struggling to care for herself (house without hot water, in condemnable condition and pt has not showered in several months). Pt is not able to recall events leading to this admission, despite the fact that she is oriented to month, year and place. We discussed risks, benefits and alternative treatment options. Will lower dose of xanax as pt this morning was more somnolent and lethargic although she had not received xanax. Lowered to 0.5mg po TID. continue effexor er 75mg po daily. Pt noted to have BP elevated but this was one point of care- will continue to monitor. No signs of benzo withdrawal. Pending MOCA/ACL. Will also check B12 (note that although no anemia, MCV was high). Repeat of CMP shows some degree of dehydration (elevated BUN from 14 to 23)- encourage fluids. PLAN 04/04 LFTs trending up, GI following, denies any abdominal pain, no vomiting, afebrile. pt confused as to why she is here, somewhat suspicious about her children wanting to leave her here. Will hold on starting medications until LFTs and bilirubin normalizes. Pending US of gallbladder today. 04/05 pt forgetful from day to day, confabulation with often seems more like blaming her children for doing things behind her back and thinks they are lying when medical technical writer explains concern in terms of memory/cog impairments. 04/06 LFTs trending down. Will start abilify for mood/suspiciousness. 04/08 continue tx. 04/09: Continue current regimen and plans. Trial of Fioricet b.i.d. PRN 04/11 increase abilify for mood. reading of MRI with neuroquant- still pending. CAUTION WITH ACETAMINOPHEN AND LFTS. ALSO CAUTION WITH NSAID- not H&H down since admission. She was started on Tapazole 10mg po daily for graves disease- newly dx here. HIDA scan for abdominal pain not completed due to pt declining- may need to reorder if pt presents with abdominal pain or again LFTs elevation. 04/12: stable, demented. asking about discharge home when awaiting placement. MRI c neuroquant pending. stable presentation. continue current mgmt for now. 04/13: poor sleep due to disruptive peer. resting today. no request for discharge. no behavioral issues. continue current mgmt. 04/14: slept 5 hours. somewhat hypomanic today, circumstantial and moderately disorganized. agreeable to stay for the time being, per SW. increase abilify to 15 mg daily for mood stability. call placed to radiology for read on MRI brain done 04/05/25. 04/15: head MRI read remains absent. stable presentation. resting today, not activated or irritable. continue current mgmt. 04/16: stable presentation. remains a bit more organized and less labile than prior, since increase in abilify dosing. also a bit more tired. T/C moving abilify to HS to prevent daytime sedation. 04/17: lying in bed, calm. does not mention agitation around midnight last night. no complaints or requests. continue current mgmt. continues more organized and less labile. 04/18: MRI brain c/w AD and vascular dementia. start donepezil. remains less labile and irritable since abilify dosing increase. awaiting placement. continue current mgmt. 04/19: appears to be endorsing AH and expressing paranoia re staff today. increase abilify once again, this time with added dose in the evening. otherwise continue current mgmt. 04/20/25: Patient slept for 8 hours, was medication compliant. Denied side effects. However per nursing staff, patient was struggle with taking medication last night. She has sundown symptoms, more irritable in the afternoon and evening. During conversation with this provider, patient reports that she feel irritable but denies anxiety or depression. She said medications do not do anything good. Sucks being in here. Then she is more irritable when we asked about safety concern questions. it Is a bunch of bullshit, I am done talking . However she continued engaged in conversation when this provider review with her regarding Abilify scheduled time of the afternoon dose. She is working on menu at the same time. Per nursing, patient struggle with taking Abilify in the afternoon yesterday, after he she has sundown symptoms. Therefore I will change to 1600 so nursing staff can offer her at around 3 PM. Does not make any paranoid statements. 04/20: tired, resting in the morning. no paranoid delusions expressed. court paperwork completed for affirming HCP. continue current mgmt. 04/22: as for yesterday. reportedly c/o chills, shivering overnight, denies today. afebrile. continue current mgmt. 04/23: continue current tx 04/24: continue current tx 04/25: stable, continue current mgmt. 04/26: no change in presentation. HCP affirmation hearing tomorrow. continue current mgmt. 04/27: no change in presentation. HCP affirmation hearing today. continue current mgmt. 04/28 continue current medications. 04/29 continue tx. 04/30: continue current management and treatment plan. 05/01: continue current management and treatment plan. 05/02: Continue current management and treatment plan. 05/03 continue tx. 05/04 continue tx 05/05 continue tx. 05/06 continue tx. 05/09 continue tx. 05/10 continue tx. 05/11 continue tx. monitor HR. 05/12 continue tx. 05/13 continue tx. monitor HR, expecting some improvement with d/c of aricept, reduction of methimazole. 05/14: continue Patient educated on: diagnosis and medication risk/benefits Informed Consent: understands Reason for continued inpatient stay Substantial Risk for: inability to function and rapid decompensation Time Spent With Patient Time: Total time managing care of this patient today _15___ minutes.
[2025-05-15 08:29] VITALS: BP 106/56; PULSE 55; RESP 18; TEMP 35.8; O2SAT 97
[2025-05-15] MEDS: Butalb/Acetamin/Caff 50/325/40 TABLET 1 TAB PO (14:27)
--- NOTE | 2025-05-15 17:16 | HO.PSYCHPN ---
Subjective Subjective Date of Service: 05/15/25 Reason For Visit: Bradycardia Subjective Notes: Conditional Voluntary Healthcare Proxy: No Guardianship: No Medical Problems Affecting Mental Status: No Interim History: Patient was found in her room, sitting calmly. She presented with a full range of affect. We reviewed that her heart rate numbers have improved from yesterday, with her low end heart rate at 46 rather than in the 20s. She said that she was having headaches, has a history of migraine headache. She took Fioricet with positive results. She denies SI/HI/AVH. She denies any immediate concerns about her treatment at this time. Medication Compliance: Yes Side effects from medications: No Attending Groups: Yes Review of Systems Acute medical concerns: No Medical Review of Systems: unchanged Review of Systems Review of Systems Yes all other systems are reviewed and are negative Mental Status Exam Mental Status Exam Narrative: Patient Appearance: Well Groomed, adequate hygiene Patient Behavior: Appropriate Level of Consciousness: Awake, alert Patient Orientation: Person, Place and Time Memory: grossly intact to recent events Psychomotor: no agitation or slowing Speech: normal rate, tone, volume Mood: ?okay? Affect: appropriate range Thought Process: Goal Oriented Thought Content: denies SI/HI; focused on treatment questions Hallucinations: Denies; does not appear preoccupied Delusions: None evinced Insight: impaired Judgment: impaired Impulsivity: low Diagnostics Vital Signs (24Hr): Vital Signs - 24 hr 05/14/25 20:00 05/15/25 08:29 Temperature 97 F 96.5 F L Pulse Rate 63 55 Respiratory Rate 17 18 Blood Pressure 124/75 106/56 L Pulse Oximetry 97 97 Oxygen Delivery Method Room Air Room Air BMI result Body Mass Index 17.8 Labs 05/13/25 10:05 05/13/25 10:05 Imaging Radiology Impressions: ITS Impressions Thyroid Ultrasound 04/03/25 11:58 IMPRESSION: Heterogeneous hypervascular thyroid gland. No discrete nodules are identified. ACR TI-RADS Guidelines TR1 (0 points): Benign. No follow-up or biopsy required TR2 (2 points): Not Suspicious. No biopsy or follow up indicated TR3 (3 points): Mildly Suspicious. FNA if >= 2.5 cm, Follow if >= 1.5 cm TR4 (4-6 points): Moderately Suspicious. FNA if >= 1.5 cm, Follow if >= 1.0 cm TR5 (>=7 points): Highly Suspicious. FNA if >= 1.0 cm, Follow if >= 0.5 cm Electronically signed by: García Young MD 04/04/2025 07:08 AM EDT RP Abdomen X-Ray 04/05/25 11:25 IMPRESSION: No radiopaque foreign body is identified. Electronically signed by: García Young MD 04/05/2025 11:45 AM EDT RP Chest X-Ray 04/05/25 11:25 IMPRESSION: Clear lungs. No radiopaque foreign body is identified. Electronically signed by: García Young MD 04/05/2025 11:46 AM EDT RP Skull X-Ray 04/05/25 11:25 IMPRESSION: No radiopaque foreign body is identified. Electronically signed by: García Young MD 04/05/2025 11:47 AM EDT RP Brain MRI 04/05/25 11:38 IMPRESSION: 1. No evidence of intracranial hemorrhage, acute infarction, mass effect, or edema. 2. Age advanced cerebral and cerebellar volume loss. Please refer to the above, and the full neuroquantitative report included with the examination. 3. Moderate to severe changes of small vessel ischemia. 4. Crib d'etat appearance of the basal ganglia suggestive of sequela of chronic hypertension. Electronically signed by: Ruddy Moreau MD 04/18/2025 08:28 AM EDT RP Medications Medications Current Medications Acetaminophen (Acetaminophen 325 Mg Tablet) 650 mg PO Q6H PRN PRN Reason: Pain 1-10 or headache Last Admin: 05/14/25 16:33 Dose: 650 mg Acetaminophen/Butalbital/Caffeine (Butalb/Acetamin/Caff 50/325/40 Tablet) 1 tab PO BID PRN PRN Reason: Pain, Moderate(Pain Scale 4-6) Last Admin: 05/15/25 14:27 Dose: 1 tab Al Hydroxide/Mg Hydroxide (Magnesium Hydrox/Alum Hydrox 30 Ml Oral.Susp) 30 ml PO Q6H PRN PRN Reason: Heartburn/Nausea Amlodipine Besylate (Amlodipine Besylate 5 Mg Tablet) 5 mg PO DAILY ROGELIO; Protocol Last Admin: 05/15/25 08:31 Dose: 5 mg Aripiprazole (Aripiprazole 15 Mg Tablet) 15 mg PO DAILY [facility] Last Admin: 05/15/25 08:31 Dose: 15 mg Aripiprazole (Aripiprazole 5 Mg Tablet) 5 mg PO DAILY@1600 [facility] Last Admin: 05/15/25 15:21 Dose: 5 mg Atorvastatin Calcium (Atorvastatin Calcium 80 Mg Tablet) 80 mg PO DAILY [facility] Last Admin: 05/15/25 08:31 Dose: 80 mg Magnesium Hydroxide (Milk Of Magnesia 30 Ml Oral.Susp) 30 ml PO DAILY PRN PRN Reason: Constipation Methimazole (Methimazole 5 Mg Tablet) 5 mg PO DAILY [facility] Last Admin: 05/15/25 08:30 Dose: 5 mg Mirtazapine (Mirtazapine 15 Mg Tablet) 15 mg PO BEDTIME [facility] Last Admin: 05/14/25 21:09 Dose: 15 mg Nicotine Polacrilex (Nicotine Polacrilex 2 Mg Gum) 4 mg BUCCAL Q2H PRN PRN Reason: Nicotine Cravings Olanzapine (Olanzapine 5 Mg Tablet) 5 mg PO TID PRN PRN Reason: agitation Last Admin: 05/02/25 15:15 Dose: 5 mg Omeprazole (Omeprazole 20 Mg Capsule.Dr) 20 mg PO DAILY@0630 [facility] Last Admin: 05/15/25 06:26 Dose: 20 mg Spironolactone (Spironolactone 25 Mg Tablet) 25 mg PO DAILY [facility]; Protocol Last Admin: 05/15/25 08:31 Dose: 25 mg Trazodone HCl (Trazodone Hcl 25 Mg Halftab) 25 mg PO BEDTIME MRX1 PRN PRN Reason: Insomnia Last Admin: 04/26/25 21:20 Dose: 25 mg Trazodone HCl (Trazodone Hcl 25 Mg Halftab) 12.5 mg PO Q6H PRN PRN Reason: anxiety/agitation Allergies Allergies Allergy/AdvReac Type Severity Reaction Status Date / Time codeine Allergy Intermediate hives Verified 03/28/25 21:43 NSAIDS (Non-Steroidal AdvReac Severe gi bleed Verified 04/05/25 10:40 Anti-Inflamma Assessment & Plan Assessment & Plan (1) MDD (major depressive disorder), recurrent episode, moderate: Status: Acute Code(s): F33.1 - Major depressive disorder, recurrent, moderate (2) Major neurocognitive disorder, due to another medical condition, with behavioral disturbance, severe: Status: Acute Code(s): F02.C18 - Dementia in other diseases classified elsewhere, severe, with other behavioral disturbance (3) Graves disease: Status: Acute Code(s): E05.00 - Thyrotoxicosis with diffuse goiter without thyrotoxic crisis or storm Assessment and Plan: Pt is a 70-year-old female with a PMH significant for?HLD/CAD, NSTEMI 17 years ago, HTN, HFpEF, aniety, and depression who is admitted to [facility] for increasing depression with SI. Pt initially presented to [facility] for profound lethargy and inability to function at home. Workup was negative except for undetectable TSH but T3 and T4 WNL. While in the ED pt became agitated with multiple outbursts, including throwing coffee, kicking and screaming, and swearing at staff. Pt was not redirectable and required IM Zyprexa. Seen today for right ear pain, transaminitis. . Right otitis media. Augmentin 875 mgs BID for 5 days Improved HTN/CAD/HLD Continue amlodipine. Reports hx of NSTEMI 17 years ago No longer taking aspirin or Plavix, unclear if pt stopped taking on her own or at direction of cardiology Continue statin Asymptomatic bradycardia Metoprolol DC Graves disease Thyroid ultrasound without nodules but noted to be hypervascular TSI and TRAb elevated. Free T3 elevated, T4 normal Continue Methimazole 10 mgs daily Repeat labs in one week. Follow labs every 4 weeks. Will need endocrinology follow up. Abdominal pain/transaminitis Abdominal pain resolved If reoccurs we will order HIDA scan Patient reports a history of Hep C- Viral panel undetectable. Patient with a history of EtOH use Abdominal pain resolved. Liver tests reviewed with Dr. Mauro. No further intervention as abdominal pain resolved. Patient refused HIDA scan Hx of HFpEF Not in acute exacerbation Continue spironolactone Thank you for allowing me to participate in the care of this patient. We will continue to follow as needed. Please reconsult of any acute concerns or issues arise Plan Mrs. Martinez is a 70 year-old woman who was initially brought to [facility] due to weakness, profound lethargy and inability to care for herself. While in the ED, pt presented as agitated, combative and reported SI. Daughter reports pt has been struggling to care for herself (house without hot water, in condemnable condition and pt has not showered in several months). Pt is not able to recall events leading to this admission, despite the fact that she is oriented to month, year and place. We discussed risks, benefits and alternative treatment options. Will lower dose of xanax as pt this morning was more somnolent and lethargic although she had not received xanax. Lowered to 0.5mg po TID. continue effexor er 75mg po daily. Pt noted to have BP elevated but this was one point of care- will continue to monitor. No signs of benzo withdrawal. Pending MOCA/ACL. Will also check B12 (note that although no anemia, MCV was high). Repeat of CMP shows some degree of dehydration (elevated BUN from 14 to 23)- encourage fluids. PLAN 04/04 LFTs trending up, GI following, denies any abdominal pain, no vomiting, afebrile. pt confused as to why she is here, somewhat suspicious about her children wanting to leave her here. Will hold on starting medications until LFTs and bilirubin normalizes. Pending US of gallbladder today. 04/05 pt forgetful from day to day, confabulation with often seems more like blaming her children for doing things behind her back and thinks they are lying when mortgage or loan underwriter explains concern in terms of memory/cog impairments. 04/06 LFTs trending down. Will start abilify for mood/suspiciousness. 04/08 continue tx. 04/09: Continue current regimen and plans. Trial of Fioricet b.i.d. PRN 04/11 increase abilify for mood. reading of MRI with neuroquant- still pending. CAUTION WITH ACETAMINOPHEN AND LFTS. ALSO CAUTION WITH NSAID- not H&H down since admission. She was started on Tapazole 10mg po daily for graves disease- newly dx here. HIDA scan for abdominal pain not completed due to pt declining- may need to reorder if pt presents with abdominal pain or again LFTs elevation. 04/12: stable, demented. asking about discharge home when awaiting placement. MRI c neuroquant pending. stable presentation. continue current mgmt for now. 04/13: poor sleep due to disruptive peer. resting today. no request for discharge. no behavioral issues. continue current mgmt. 04/14: slept 5 hours. somewhat hypomanic today, circumstantial and moderately disorganized. agreeable to stay for the time being, per SW. increase abilify to 15 mg daily for mood stability. call placed to radiology for read on MRI brain done 04/05/25. 04/15: head MRI read remains absent. stable presentation. resting today, not activated or irritable. continue current mgmt. 04/16: stable presentation. remains a bit more organized and less labile than prior, since increase in abilify dosing. also a bit more tired. T/C moving abilify to HS to prevent daytime sedation. 04/17: lying in bed, calm. does not mention agitation around midnight last night. no complaints or requests. continue current mgmt. continues more organized and less labile. 04/18: MRI brain c/w AD and vascular dementia. start donepezil. remains less labile and irritable since abilify dosing increase. awaiting placement. continue current mgmt. 04/19: appears to be endorsing AH and expressing paranoia re staff today. increase abilify once again, this time with added dose in the evening. otherwise continue current mgmt. 04/20/25: Patient slept for 8 hours, was medication compliant. Denied side effects. However per nursing staff, patient was struggle with taking medication last night. She has sundown symptoms, more irritable in the afternoon and evening. During conversation with this provider, patient reports that she feel irritable but denies anxiety or depression. She said medications do not do anything good. Sucks being in here. Then she is more irritable when we asked about safety concern questions. it Is a bunch of bullshit, I am done talking . However she continued engaged in conversation when this provider review with her regarding Abilify scheduled time of the afternoon dose. She is working on menu at the same time. Per nursing, patient struggle with taking Abilify in the afternoon yesterday, after he she has sundown symptoms. Therefore I will change to 1600 so nursing staff can offer her at around 3 PM. Does not make any paranoid statements. 04/20: tired, resting in the morning. no paranoid delusions expressed. court paperwork completed for affirming HCP. continue current mgmt. 04/22: as for yesterday. reportedly c/o chills, shivering overnight, denies today. afebrile. continue current mgmt. 04/23: continue current tx 04/24: continue current tx 04/25: stable, continue current mgmt. 04/26: no change in presentation. HCP affirmation hearing tomorrow. continue current mgmt. 04/27: no change in presentation. HCP affirmation hearing today. continue current mgmt. 04/28 continue current medications. 04/29 continue tx. 04/30: continue current management and treatment plan. 05/01: continue current management and treatment plan. 05/02: Continue current management and treatment plan. 05/03 continue tx. 05/04 continue tx 05/05 continue tx. 05/06 continue tx. 05/09 continue tx. 05/10 continue tx. 05/11 continue tx. monitor HR. 05/12 continue tx. 05/13 continue tx. monitor HR, expecting some improvement with d/c of aricept, reduction of methimazole. 05/14: continue 05/15: continue Patient educated on: diagnosis and medication risk/benefits Informed Consent: understands Reason for continued inpatient stay Substantial Risk for: inability to function and rapid decompensation Time Spent With Patient Time: Total time managing care of this patient today _15___ minutes.
[2025-05-15 19:58] VITALS: BP 152/72; PULSE 65; RESP 18; TEMP 36.1; O2SAT 97
[2025-05-16 08:00] VITALS: BP 145/81; PULSE 66; RESP 18; TEMP 36.6; O2SAT 97
--- NOTE | 2025-05-16 08:41 | HO.PSYCHPN ---
Subjective Subjective Date of Service: 05/16/25 Reason For Visit: Bradycardia Subjective Notes: Conditional Voluntary Healthcare Proxy: Yes Interim History: Pt slept through the night. She presents as pleasant. She reports she is doing well and denies any physical concerns. HR improved without aricept and lower dose of tapazole. No behavioral concerns. Review of Systems Review of Systems Denies any shortness of breath, chest pain, dizziness, lightheadedness, abdominal pain or discomfort, nausea vomiting or diarrhea Yes all other systems are reviewed and are negative Mental Status Exam Mental Status Exam Narrative: Appearance: wearing hospital gown, thin, very poor hygiene, , in NAD Behavior: superficially cooperative; isolative Psychomotor: Some psychomotor retardation Speech: mostly clear, normal rate/rhythm/volume, spontaneous TP: Goal directed; can be circumstantial TC: wanting to go home Mood: just chilling out Affect: congruent SI: denies HI: denies VH/AH: no signs Delusions: no overt delusional content but noted confabulation. Insight/judgment: impaired x 2. memory/cog: alert, oriented to place, month and year but not to situation. Significant difficulty remembering events that led to this admission. MOCA Diagnostics Vital Signs (24Hr): Vital Signs - 24 hr 05/15/25 19:58 Temperature 97 F Pulse Rate 65 Respiratory Rate 18 Blood Pressure 152/72 H Pulse Oximetry 97 Oxygen Delivery Method Room Air BMI result Body Mass Index 17.8 Labs 05/13/25 10:05 05/13/25 10:05 Imaging Radiology Impressions: ITS Impressions Thyroid Ultrasound 04/03/25 11:58 IMPRESSION: Heterogeneous hypervascular thyroid gland. No discrete nodules are identified. ACR TI-RADS Guidelines TR1 (0 points): Benign. No follow-up or biopsy required TR2 (2 points): Not Suspicious. No biopsy or follow up indicated TR3 (3 points): Mildly Suspicious. FNA if >= 2.5 cm, Follow if >= 1.5 cm TR4 (4-6 points): Moderately Suspicious. FNA if >= 1.5 cm, Follow if >= 1.0 cm TR5 (>=7 points): Highly Suspicious. FNA if >= 1.0 cm, Follow if >= 0.5 cm Electronically signed by: García Young MD 04/04/2025 07:08 AM EDT RP Abdomen X-Ray 04/05/25 11:25 IMPRESSION: No radiopaque foreign body is identified. Electronically signed by: García Young MD 04/05/2025 11:45 AM EDT RP Chest X-Ray 04/05/25 11:25 IMPRESSION: Clear lungs. No radiopaque foreign body is identified. Electronically signed by: García Young MD 04/05/2025 11:46 AM EDT RP Skull X-Ray 04/05/25 11:25 IMPRESSION: No radiopaque foreign body is identified. Electronically signed by: García Young MD 04/05/2025 11:47 AM EDT RP Brain MRI 04/05/25 11:38 IMPRESSION: 1. No evidence of intracranial hemorrhage, acute infarction, mass effect, or edema. 2. Age advanced cerebral and cerebellar volume loss. Please refer to the above, and the full neuroquantitative report included with the examination. 3. Moderate to severe changes of small vessel ischemia. 4. Crib d'etat appearance of the basal ganglia suggestive of sequela of chronic hypertension. Electronically signed by: Ruddy Moreau MD 04/18/2025 08:28 AM EDT RP Medications Medications Current Medications Acetaminophen (Acetaminophen 325 Mg Tablet) 650 mg PO Q6H PRN PRN Reason: Pain 1-10 or headache Last Admin: 05/14/25 16:33 Dose: 650 mg Acetaminophen/Butalbital/Caffeine (Butalb/Acetamin/Caff 50/325/40 Tablet) 1 tab PO BID PRN PRN Reason: Pain, Moderate(Pain Scale 4-6) Last Admin: 05/15/25 14:27 Dose: 1 tab Al Hydroxide/Mg Hydroxide (Magnesium Hydrox/Alum Hydrox 30 Ml Oral.Susp) 30 ml PO Q6H PRN PRN Reason: Heartburn/Nausea Amlodipine Besylate (Amlodipine Besylate 5 Mg Tablet) 5 mg PO DAILY ROGELIO; Protocol Last Admin: 05/15/25 08:31 Dose: 5 mg Aripiprazole (Aripiprazole 15 Mg Tablet) 15 mg PO DAILY [facility] Last Admin: 05/15/25 08:31 Dose: 15 mg Aripiprazole (Aripiprazole 5 Mg Tablet) 5 mg PO DAILY@1600 [facility] Last Admin: 05/15/25 15:21 Dose: 5 mg Atorvastatin Calcium (Atorvastatin Calcium 80 Mg Tablet) 80 mg PO DAILY [facility] Last Admin: 05/15/25 08:31 Dose: 80 mg Magnesium Hydroxide (Milk Of Magnesia 30 Ml Oral.Susp) 30 ml PO DAILY PRN PRN Reason: Constipation Methimazole (Methimazole 5 Mg Tablet) 5 mg PO DAILY [facility] Last Admin: 05/15/25 08:30 Dose: 5 mg Mirtazapine (Mirtazapine 15 Mg Tablet) 15 mg PO BEDTIME [facility] Last Admin: 05/15/25 20:49 Dose: 15 mg Nicotine Polacrilex (Nicotine Polacrilex 2 Mg Gum) 4 mg BUCCAL Q2H PRN PRN Reason: Nicotine Cravings Olanzapine (Olanzapine 5 Mg Tablet) 5 mg PO TID PRN PRN Reason: agitation Last Admin: 05/02/25 15:15 Dose: 5 mg Omeprazole (Omeprazole 20 Mg Capsule.Dr) 20 mg PO DAILY@0630 [facility] Last Admin: 05/16/25 06:21 Dose: 20 mg Spironolactone (Spironolactone 25 Mg Tablet) 25 mg PO DAILY [facility]; Protocol Last Admin: 05/15/25 08:31 Dose: 25 mg Trazodone HCl (Trazodone Hcl 25 Mg Halftab) 25 mg PO BEDTIME MRX1 PRN PRN Reason: Insomnia Last Admin: 04/26/25 21:20 Dose: 25 mg Trazodone HCl (Trazodone Hcl 25 Mg Halftab) 12.5 mg PO Q6H PRN PRN Reason: anxiety/agitation Allergies Allergies Allergy/AdvReac Type Severity Reaction Status Date / Time codeine Allergy Intermediate hives Verified 03/28/25 21:43 NSAIDS (Non-Steroidal AdvReac Severe gi bleed Verified 04/05/25 10:40 Anti-Inflamma Assessment & Plan Assessment & Plan (1) MDD (major depressive disorder), recurrent episode, moderate: Status: Acute Code(s): F33.1 - Major depressive disorder, recurrent, moderate (2) Major neurocognitive disorder, due to another medical condition, with behavioral disturbance, severe: Status: Acute Code(s): F02.C18 - Dementia in other diseases classified elsewhere, severe, with other behavioral disturbance (3) Graves disease: Status: Acute Code(s): E05.00 - Thyrotoxicosis with diffuse goiter without thyrotoxic crisis or storm Assessment and Plan: Pt is a 70-year-old female with a PMH significant for?HLD/CAD, NSTEMI 17 years ago, HTN, HFpEF, aniety, and depression who is admitted to [facility] for increasing depression with SI. Pt initially presented to [facility] for profound lethargy and inability to function at home. Workup was negative except for undetectable TSH but T3 and T4 WNL. While in the ED pt became agitated with multiple outbursts, including throwing coffee, kicking and screaming, and swearing at staff. Pt was not redirectable and required IM Zyprexa. Seen today for right ear pain, transaminitis. . Right otitis media. Augmentin 875 mgs BID for 5 days Improved HTN/CAD/HLD Continue amlodipine. Reports hx of NSTEMI 17 years ago No longer taking aspirin or Plavix, unclear if pt stopped taking on her own or at direction of cardiology Continue statin Asymptomatic bradycardia Metoprolol DC Graves disease Thyroid ultrasound without nodules but noted to be hypervascular TSI and TRAb elevated. Free T3 elevated, T4 normal Continue Methimazole 10 mgs daily Repeat labs in one week. Follow labs every 4 weeks. Will need endocrinology follow up. Abdominal pain/transaminitis Abdominal pain resolved If reoccurs we will order HIDA scan Patient reports a history of Hep C- Viral panel undetectable. Patient with a history of EtOH use Abdominal pain resolved. Liver tests reviewed with Dr. Mauro. No further intervention as abdominal pain resolved. Patient refused HIDA scan Hx of HFpEF Not in acute exacerbation Continue spironolactone Thank you for allowing me to participate in the care of this patient. We will continue to follow as needed. Please reconsult of any acute concerns or issues arise Plan Mrs. Martinez is a 70 year-old woman who was initially brought to [facility] due to weakness, profound lethargy and inability to care for herself. While in the ED, pt presented as agitated, combative and reported SI. Daughter reports pt has been struggling to care for herself (house without hot water, in condemnable condition and pt has not showered in several months). Pt is not able to recall events leading to this admission, despite the fact that she is oriented to month, year and place. We discussed risks, benefits and alternative treatment options. Will lower dose of xanax as pt this morning was more somnolent and lethargic although she had not received xanax. Lowered to 0.5mg po TID. continue effexor er 75mg po daily. Pt noted to have BP elevated but this was one point of care- will continue to monitor. No signs of benzo withdrawal. Pending MOCA/ACL. Will also check B12 (note that although no anemia, MCV was high). Repeat of CMP shows some degree of dehydration (elevated BUN from 14 to 23)- encourage fluids. PLAN 04/04 LFTs trending up, GI following, denies any abdominal pain, no vomiting, afebrile. pt confused as to why she is here, somewhat suspicious about her children wanting to leave her here. Will hold on starting medications until LFTs and bilirubin normalizes. Pending US of gallbladder today. 04/05 pt forgetful from day to day, confabulation with often seems more like blaming her children for doing things behind her back and thinks they are lying when telegraphic typewriter operator chief explains concern in terms of memory/cog impairments. 04/06 LFTs trending down. Will start abilify for mood/suspiciousness. 04/08 continue tx. 04/09: Continue current regimen and plans. Trial of Fioricet b.i.d. PRN 04/11 increase abilify for mood. reading of MRI with neuroquant- still pending. CAUTION WITH ACETAMINOPHEN AND LFTS. ALSO CAUTION WITH NSAID- not H&H down since admission. She was started on Tapazole 10mg po daily for graves disease- newly dx here. HIDA scan for abdominal pain not completed due to pt declining- may need to reorder if pt presents with abdominal pain or again LFTs elevation. 04/12: stable, demented. asking about discharge home when awaiting placement. MRI c neuroquant pending. stable presentation. continue current mgmt for now. 04/13: poor sleep due to disruptive peer. resting today. no request for discharge. no behavioral issues. continue current mgmt. 04/14: slept 5 hours. somewhat hypomanic today, circumstantial and moderately disorganized. agreeable to stay for the time being, per SW. increase abilify to 15 mg daily for mood stability. call placed to radiology for read on MRI brain done 04/05/25. 04/15: head MRI read remains absent. stable presentation. resting today, not activated or irritable. continue current mgmt. 04/16: stable presentation. remains a bit more organized and less labile than prior, since increase in abilify dosing. also a bit more tired. T/C moving abilify to HS to prevent daytime sedation. 04/17: lying in bed, calm. does not mention agitation around midnight last night. no complaints or requests. continue current mgmt. continues more organized and less labile. 04/18: MRI brain c/w AD and vascular dementia. start donepezil. remains less labile and irritable since abilify dosing increase. awaiting placement. continue current mgmt. 04/19: appears to be endorsing AH and expressing paranoia re staff today. increase abilify once again, this time with added dose in the evening. otherwise continue current mgmt. 04/20/25: Patient slept for 8 hours, was medication compliant. Denied side effects. However per nursing staff, patient was struggle with taking medication last night. She has sundown symptoms, more irritable in the afternoon and evening. During conversation with this provider, patient reports that she feel irritable but denies anxiety or depression. She said medications do not do anything good. Sucks being in here. Then she is more irritable when we asked about safety concern questions. it Is a bunch of bullshit, I am done talking . However she continued engaged in conversation when this provider review with her regarding Abilify scheduled time of the afternoon dose. She is working on menu at the same time. Per nursing, patient struggle with taking Abilify in the afternoon yesterday, after he she has sundown symptoms. Therefore I will change to 1600 so nursing staff can offer her at around 3 PM. Does not make any paranoid statements. 04/20: tired, resting in the morning. no paranoid delusions expressed. court paperwork completed for affirming HCP. continue current mgmt. 04/22: as for yesterday. reportedly c/o chills, shivering overnight, denies today. afebrile. continue current mgmt. 04/23: continue current tx 04/24: continue current tx 04/25: stable, continue current mgmt. 04/26: no change in presentation. HCP affirmation hearing tomorrow. continue current mgmt. 04/27: no change in presentation. HCP affirmation hearing today. continue current mgmt. 04/28 continue current medications. 04/29 continue tx. 04/30: continue current management and treatment plan. 05/01: continue current management and treatment plan. 05/02: Continue current management and treatment plan. 05/03 continue tx. 05/04 continue tx 05/05 continue tx. 05/06 continue tx. 05/09 continue tx. 05/10 continue tx. 05/11 continue tx. monitor HR. 05/12 continue tx. 05/13 continue tx. monitor HR, expecting some improvement with d/c of aricept, reduction of methimazole. 05/14: continue 05/15: continue 05/16 continue tx. HR better. no bradicardia Reason for continued inpatient stay Substantial Risk for: inability to function Time Spent With Patient Time: Total time managing care of this patient today ____ minutes.
--- NOTE | 2025-05-16 11:48 | MHC.CLN ---
F/U DIET RX REGULAR. SUPPLEMENT DISCONTINUED. PO INTAKE USUALLY VERY GOOD. SHOWS MODERATE 4.8% WEIGHT GAIN SINCE ADM. RD TO MONITOR WEEKLY LEVEL II, POTENTIAL NUTRITIONAL RISK.
[2025-05-16 20:00] VITALS: BP 148/80; PULSE 60; RESP 18; TEMP 36.2; O2SAT 96
[2025-05-17 08:00] VITALS: BP 98/53; PULSE 52; RESP 16; TEMP 35.6; O2SAT 96
--- NOTE | 2025-05-17 11:36 | HO.PSYCHPN ---
Subjective Subjective Date of Service: 05/17/25 Reason For Visit: Bradycardia Subjective Notes: Conditional Voluntary Interim History: Pt slept through the night. She continues to present as pleasant. She reports she is doing well and denies any physical concerns. HR improved without aricept and lower dose of tapazole. No behavioral concerns. VS stable. Review of Systems Review of Systems Denies any shortness of breath, chest pain, dizziness, lightheadedness, abdominal pain or discomfort, nausea vomiting or diarrhea Yes all other systems are reviewed and are negative Mental Status Exam Mental Status Exam Narrative: Appearance: wearing hospital gown, thin, very poor hygiene, , in NAD Behavior: superficially cooperative; isolative Psychomotor: Some psychomotor retardation Speech: mostly clear, normal rate/rhythm/volume, spontaneous TP: Goal directed; can be circumstantial TC: wanting to go home Mood: just chilling out Affect: congruent SI: denies HI: denies VH/AH: no signs Delusions: no overt delusional content but noted confabulation. Insight/judgment: impaired x 2. memory/cog: alert, oriented to place, month and year but not to situation. Significant difficulty remembering events that led to this admission. MOCA Diagnostics Vital Signs (24Hr): Vital Signs - 24 hr 05/16/25 20:00 05/17/25 08:00 Temperature 97.1 F 96.0 F L Pulse Rate 60 52 Respiratory Rate 18 16 Blood Pressure 148/80 H 98/53 L Pulse Oximetry 96 96 Oxygen Delivery Method Room Air Room Air BMI result Body Mass Index 17.8 Labs 05/13/25 10:05 05/18/25 10:15 Imaging Radiology Impressions: ITS Impressions Thyroid Ultrasound 04/03/25 11:58 IMPRESSION: Heterogeneous hypervascular thyroid gland. No discrete nodules are identified. ACR TI-RADS Guidelines TR1 (0 points): Benign. No follow-up or biopsy required TR2 (2 points): Not Suspicious. No biopsy or follow up indicated TR3 (3 points): Mildly Suspicious. FNA if >= 2.5 cm, Follow if >= 1.5 cm TR4 (4-6 points): Moderately Suspicious. FNA if >= 1.5 cm, Follow if >= 1.0 cm TR5 (>=7 points): Highly Suspicious. FNA if >= 1.0 cm, Follow if >= 0.5 cm Electronically signed by: García Young MD 04/04/2025 07:08 AM EDT RP Abdomen X-Ray 04/05/25 11:25 IMPRESSION: No radiopaque foreign body is identified. Electronically signed by: García Young MD 04/05/2025 11:45 AM EDT RP Chest X-Ray 04/05/25 11:25 IMPRESSION: Clear lungs. No radiopaque foreign body is identified. Electronically signed by: García Young MD 04/05/2025 11:46 AM EDT RP Skull X-Ray 04/05/25 11:25 IMPRESSION: No radiopaque foreign body is identified. Electronically signed by: García Young MD 04/05/2025 11:47 AM EDT RP Brain MRI 04/05/25 11:38 IMPRESSION: 1. No evidence of intracranial hemorrhage, acute infarction, mass effect, or edema. 2. Age advanced cerebral and cerebellar volume loss. Please refer to the above, and the full neuroquantitative report included with the examination. 3. Moderate to severe changes of small vessel ischemia. 4. Crib d'etat appearance of the basal ganglia suggestive of sequela of chronic hypertension. Electronically signed by: Ruddy Moreau MD 04/18/2025 08:28 AM EDT RP Medications Medications Current Medications Acetaminophen (Acetaminophen 325 Mg Tablet) 650 mg PO Q6H PRN PRN Reason: Pain 1-10 or headache Last Admin: 05/14/25 16:33 Dose: 650 mg Acetaminophen/Butalbital/Caffeine (Butalb/Acetamin/Caff 50/325/40 Tablet) 1 tab PO BID PRN PRN Reason: Pain, Moderate(Pain Scale 4-6) Last Admin: 05/15/25 14:27 Dose: 1 tab Al Hydroxide/Mg Hydroxide (Magnesium Hydrox/Alum Hydrox 30 Ml Oral.Susp) 30 ml PO Q6H PRN PRN Reason: Heartburn/Nausea Amlodipine Besylate (Amlodipine Besylate 5 Mg Tablet) 5 mg PO DAILY ROGELIO; Protocol Last Admin: 05/17/25 08:33 Dose: 5 mg Aripiprazole (Aripiprazole 15 Mg Tablet) 15 mg PO DAILY [facility] Last Admin: 05/17/25 08:33 Dose: 15 mg Aripiprazole (Aripiprazole 5 Mg Tablet) 5 mg PO DAILY@1600 [facility] Last Admin: 05/16/25 15:41 Dose: 5 mg Atorvastatin Calcium (Atorvastatin Calcium 80 Mg Tablet) 80 mg PO DAILY [facility] Last Admin: 05/17/25 08:33 Dose: 80 mg Magnesium Hydroxide (Milk Of Magnesia 30 Ml Oral.Susp) 30 ml PO DAILY PRN PRN Reason: Constipation Methimazole (Methimazole 5 Mg Tablet) 5 mg PO DAILY [facility] Last Admin: 05/17/25 08:33 Dose: 5 mg Mirtazapine (Mirtazapine 15 Mg Tablet) 15 mg PO BEDTIME [facility] Last Admin: 05/16/25 20:50 Dose: 15 mg Nicotine Polacrilex (Nicotine Polacrilex 2 Mg Gum) 4 mg BUCCAL Q2H PRN PRN Reason: Nicotine Cravings Olanzapine (Olanzapine 5 Mg Tablet) 5 mg PO TID PRN PRN Reason: agitation Last Admin: 05/02/25 15:15 Dose: 5 mg Omeprazole (Omeprazole 20 Mg Capsule.Dr) 20 mg PO DAILY@0630 [facility] Last Admin: 05/17/25 06:19 Dose: 20 mg Spironolactone (Spironolactone 25 Mg Tablet) 25 mg PO DAILY [facility]; Protocol Last Admin: 05/17/25 08:33 Dose: 25 mg Trazodone HCl (Trazodone Hcl 25 Mg Halftab) 25 mg PO BEDTIME MRX1 PRN PRN Reason: Insomnia Last Admin: 04/26/25 21:20 Dose: 25 mg Trazodone HCl (Trazodone Hcl 25 Mg Halftab) 12.5 mg PO Q6H PRN PRN Reason: anxiety/agitation Allergies Allergies Allergy/AdvReac Type Severity Reaction Status Date / Time codeine Allergy Intermediate hives Verified 03/28/25 21:43 NSAIDS (Non-Steroidal AdvReac Severe gi bleed Verified 04/05/25 10:40 Anti-Inflamma Assessment & Plan Assessment & Plan (1) MDD (major depressive disorder), recurrent episode, moderate: Status: Acute Code(s): F33.1 - Major depressive disorder, recurrent, moderate (2) Major neurocognitive disorder, due to another medical condition, with behavioral disturbance, severe: Status: Acute Code(s): F02.C18 - Dementia in other diseases classified elsewhere, severe, with other behavioral disturbance (3) Graves disease: Status: Acute Code(s): E05.00 - Thyrotoxicosis with diffuse goiter without thyrotoxic crisis or storm Assessment and Plan: Pt is a 70-year-old female with a PMH significant for?HLD/CAD, NSTEMI 17 years ago, HTN, HFpEF, aniety, and depression who is admitted to [facility] for increasing depression with SI. Pt initially presented to [facility] for profound lethargy and inability to function at home. Workup was negative except for undetectable TSH but T3 and T4 WNL. While in the ED pt became agitated with multiple outbursts, including throwing coffee, kicking and screaming, and swearing at staff. Pt was not redirectable and required IM Zyprexa. Seen today for right ear pain, transaminitis. . Right otitis media. Augmentin 875 mgs BID for 5 days Improved HTN/CAD/HLD Continue amlodipine. Reports hx of NSTEMI 17 years ago No longer taking aspirin or Plavix, unclear if pt stopped taking on her own or at direction of cardiology Continue statin Asymptomatic bradycardia Metoprolol DC Graves disease Thyroid ultrasound without nodules but noted to be hypervascular TSI and TRAb elevated. Free T3 elevated, T4 normal Continue Methimazole 10 mgs daily Repeat labs in one week. Follow labs every 4 weeks. Will need endocrinology follow up. Abdominal pain/transaminitis Abdominal pain resolved If reoccurs we will order HIDA scan Patient reports a history of Hep C- Viral panel undetectable. Patient with a history of EtOH use Abdominal pain resolved. Liver tests reviewed with Dr. Mauro. No further intervention as abdominal pain resolved. Patient refused HIDA scan Hx of HFpEF Not in acute exacerbation Continue spironolactone Thank you for allowing me to participate in the care of this patient. We will continue to follow as needed. Please reconsult of any acute concerns or issues arise Plan Mrs. Martinez is a 70 year-old woman who was initially brought to [facility] due to weakness, profound lethargy and inability to care for herself. While in the ED, pt presented as agitated, combative and reported SI. Daughter reports pt has been struggling to care for herself (house without hot water, in condemnable condition and pt has not showered in several months). Pt is not able to recall events leading to this admission, despite the fact that she is oriented to month, year and place. We discussed risks, benefits and alternative treatment options. Will lower dose of xanax as pt this morning was more somnolent and lethargic although she had not received xanax. Lowered to 0.5mg po TID. continue effexor er 75mg po daily. Pt noted to have BP elevated but this was one point of care- will continue to monitor. No signs of benzo withdrawal. Pending MOCA/ACL. Will also check B12 (note that although no anemia, MCV was high). Repeat of CMP shows some degree of dehydration (elevated BUN from 14 to 23)- encourage fluids. PLAN 04/04 LFTs trending up, GI following, denies any abdominal pain, no vomiting, afebrile. pt confused as to why she is here, somewhat suspicious about her children wanting to leave her here. Will hold on starting medications until LFTs and bilirubin normalizes. Pending US of gallbladder today. 04/05 pt forgetful from day to day, confabulation with often seems more like blaming her children for doing things behind her back and thinks they are lying when brief writer explains concern in terms of memory/cog impairments. 04/06 LFTs trending down. Will start abilify for mood/suspiciousness. 04/08 continue tx. 04/09: Continue current regimen and plans. Trial of Fioricet b.i.d. PRN 04/11 increase abilify for mood. reading of MRI with neuroquant- still pending. CAUTION WITH ACETAMINOPHEN AND LFTS. ALSO CAUTION WITH NSAID- not H&H down since admission. She was started on Tapazole 10mg po daily for graves disease- newly dx here. HIDA scan for abdominal pain not completed due to pt declining- may need to reorder if pt presents with abdominal pain or again LFTs elevation. 04/12: stable, demented. asking about discharge home when awaiting placement. MRI c neuroquant pending. stable presentation. continue current mgmt for now. 04/13: poor sleep due to disruptive peer. resting today. no request for discharge. no behavioral issues. continue current mgmt. 04/14: slept 5 hours. somewhat hypomanic today, circumstantial and moderately disorganized. agreeable to stay for the time being, per SW. increase abilify to 15 mg daily for mood stability. call placed to radiology for read on MRI brain done 04/05/25. 04/15: head MRI read remains absent. stable presentation. resting today, not activated or irritable. continue current mgmt. 04/16: stable presentation. remains a bit more organized and less labile than prior, since increase in abilify dosing. also a bit more tired. T/C moving abilify to HS to prevent daytime sedation. 04/17: lying in bed, calm. does not mention agitation around midnight last night. no complaints or requests. continue current mgmt. continues more organized and less labile. 04/18: MRI brain c/w AD and vascular dementia. start donepezil. remains less labile and irritable since abilify dosing increase. awaiting placement. continue current mgmt. 04/19: appears to be endorsing AH and expressing paranoia re staff today. increase abilify once again, this time with added dose in the evening. otherwise continue current mgmt. 04/20/25: Patient slept for 8 hours, was medication compliant. Denied side effects. However per nursing staff, patient was struggle with taking medication last night. She has sundown symptoms, more irritable in the afternoon and evening. During conversation with this provider, patient reports that she feel irritable but denies anxiety or depression. She said medications do not do anything good. Sucks being in here. Then she is more irritable when we asked about safety concern questions. it Is a bunch of bullshit, I am done talking . However she continued engaged in conversation when this provider review with her regarding Abilify scheduled time of the afternoon dose. She is working on menu at the same time. Per nursing, patient struggle with taking Abilify in the afternoon yesterday, after he she has sundown symptoms. Therefore I will change to 1600 so nursing staff can offer her at around 3 PM. Does not make any paranoid statements. 04/20: tired, resting in the morning. no paranoid delusions expressed. court paperwork completed for affirming HCP. continue current mgmt. 04/22: as for yesterday. reportedly c/o chills, shivering overnight, denies today. afebrile. continue current mgmt. 04/23: continue current tx 04/24: continue current tx 04/25: stable, continue current mgmt. 04/26: no change in presentation. HCP affirmation hearing tomorrow. continue current mgmt. 04/27: no change in presentation. HCP affirmation hearing today. continue current mgmt. 04/28 continue current medications. 04/29 continue tx. 04/30: continue current management and treatment plan. 05/01: continue current management and treatment plan. 05/02: Continue current management and treatment plan. 05/03 continue tx. 05/04 continue tx 05/05 continue tx. 05/06 continue tx. 05/09 continue tx. 05/10 continue tx. 05/11 continue tx. monitor HR. 05/12 continue tx. 05/13 continue tx. monitor HR, expecting some improvement with d/c of aricept, reduction of methimazole. 05/14: continue 05/15: continue 05/16 continue tx. HR better. no bradicardia 05/17 continue tx. Reason for continued inpatient stay Substantial Risk for: inability to function Time Spent With Patient Time: Total time managing care of this patient today ____ minutes.
[2025-05-17 20:00] VITALS: BP 121/74; PULSE 63; RESP 18; TEMP 36.1; O2SAT 98
[2025-05-18 08:00] VITALS: BP 116/62; PULSE 50; RESP 14; TEMP 36.4; O2SAT 95
[2025-05-18 08:07] VITALS: BP 116/62
[2025-05-18 08:08] VITALS: BP 116/62
[2025-05-18] MEDS: Butalb/Acetamin/Caff 50/325/40 TABLET 1 TAB PO (10:05)
[2025-05-18 10:40] LABS: Albumin Level 3.9 g/dL (3.5-5.0); Alkaline Phosphatase 246 U/L (39-117); Anion Gap 10 (12-20); Aspartate Amino Transferase 30 U/L (5-31); Blood Urea Nitrogen 15 mg/dL (9-16); Calcium 9.1 mg/dL (8.4-10.2); Carbon Dioxide 26 mmol/L (22-29); Chloride 107 mmol/L (96-108); Creatinine Clr Calc Pharmacy 60.6; Estimated Glomerular Filt Rate > 60; Potassium 3.8 mmol/L (3.3-5.1); Sodium 139 mmol/L (135-145); Total Protein 7.1 g/dL (6.5-8.0)
[2025-05-18 11:02] LABS: Alanine Aminotransferase 60 U/L (0-31)
--- NOTE | 2025-05-18 19:32 | P.PNPSI_ITS ---
Subjective Subjective Date of Service: 05/18/25 Reason For Visit: Bradycardia Interim History: Pt slept through the night. She continues to present as pleasant. She reports she is doing well and denies any physical concerns. HR improved without aricept and lower dose of tapazole. No behavioral concerns. VS stable. Review of Systems Review of Systems Denies any shortness of breath, chest pain, dizziness, lightheadedness, abdominal pain or discomfort, nausea vomiting or diarrhea Yes all other systems are reviewed and are negative Mental Status Exam Mental Status Exam Narrative: Appearance: wearing hospital gown, thin, very poor hygiene, , in NAD Behavior: superficially cooperative; isolative Psychomotor: Some psychomotor retardation Speech: mostly clear, normal rate/rhythm/volume, spontaneous TP: Goal directed; can be circumstantial TC: feeling good and resting. Mood: good Affect: congruent SI: denies HI: denies VH/AH: no signs Delusions: no overt delusional content but noted confabulation. Insight/judgment: impaired x 2. memory/cog: alert, oriented to place, month and year but not to situation. Significant difficulty remembering events that led to this admission. MOCA Diagnostics Vital Signs (24Hr): Vital Signs - 24 hr 05/17/25 20:00 05/18/25 08:00 05/18/25 08:07 Temperature 97.0 F 97.5 F Pulse Rate 63 50 Respiratory Rate 18 14 Blood Pressure 121/74 116/62 116/62 Pulse Oximetry 98 95 Oxygen Delivery Method Room Air Room Air 05/18/25 08:08 Temperature Pulse Rate Respiratory Rate Blood Pressure 116/62 Pulse Oximetry Oxygen Delivery Method BMI result Body Mass Index 17.8 Labs 05/13/25 10:05 05/18/25 10:15 Labs: Laboratory Results - last 48 hr 05/18/25 10:15 Sodium 139 Potassium 3.8 Chloride 107 Carbon Dioxide 26 Anion Gap 10 L BUN 15 Creatinine 0.67 Estim Creat Clear Calc 60.6 Estimated GFR > 60 Random Glucose 136 H Calcium 9.1 Total Bilirubin 0.1 AST 30 ALT 60 H Alkaline Phosphatase 246 H Total Protein 7.1 Albumin 3.9 Imaging Radiology Impressions: ITS Impressions Thyroid Ultrasound 04/03/25 11:58 IMPRESSION: Heterogeneous hypervascular thyroid gland. No discrete nodules are identified. ACR TI-RADS Guidelines TR1 (0 points): Benign. No follow-up or biopsy required TR2 (2 points): Not Suspicious. No biopsy or follow up indicated TR3 (3 points): Mildly Suspicious. FNA if >= 2.5 cm, Follow if >= 1.5 cm TR4 (4-6 points): Moderately Suspicious. FNA if >= 1.5 cm, Follow if >= 1.0 cm TR5 (>=7 points): Highly Suspicious. FNA if >= 1.0 cm, Follow if >= 0.5 cm Electronically signed by: García Young MD 04/04/2025 07:08 AM EDT RP Abdomen X-Ray 04/05/25 11:25 IMPRESSION: No radiopaque foreign body is identified. Electronically signed by: García Young MD 04/05/2025 11:45 AM EDT RP Chest X-Ray 04/05/25 11:25 IMPRESSION: Clear lungs. No radiopaque foreign body is identified. Electronically signed by: García Young MD 04/05/2025 11:46 AM EDT RP Skull X-Ray 04/05/25 11:25 IMPRESSION: No radiopaque foreign body is identified. Electronically signed by: García Young MD 04/05/2025 11:47 AM EDT RP Brain MRI 04/05/25 11:38 IMPRESSION: 1. No evidence of intracranial hemorrhage, acute infarction, mass effect, or edema. 2. Age advanced cerebral and cerebellar volume loss. Please refer to the above, and the full neuroquantitative report included with the examination. 3. Moderate to severe changes of small vessel ischemia. 4. Crib d'etat appearance of the basal ganglia suggestive of sequela of chronic hypertension. Electronically signed by: Ruddy Moreau MD 04/18/2025 08:28 AM EDT RP Medications Medications Current Medications Acetaminophen (Acetaminophen 325 Mg Tablet) 650 mg PO Q6H PRN PRN Reason: Pain 1-10 or headache Last Admin: 05/14/25 16:33 Dose: 650 mg Acetaminophen/Butalbital/Caffeine (Butalb/Acetamin/Caff 50/325/40 Tablet) 1 tab PO BID PRN PRN Reason: Pain, Moderate(Pain Scale 4-6) Last Admin: 05/18/25 10:05 Dose: 1 tab Al Hydroxide/Mg Hydroxide (Magnesium Hydrox/Alum Hydrox 30 Ml Oral.Susp) 30 ml PO Q6H PRN PRN Reason: Heartburn/Nausea Amlodipine Besylate (Amlodipine Besylate 5 Mg Tablet) 5 mg PO DAILY [facility]; Protocol Last Admin: 05/18/25 08:07 Dose: 5 mg Aripiprazole (Aripiprazole 15 Mg Tablet) 15 mg PO DAILY [facility] Last Admin: 05/18/25 08:08 Dose: 15 mg Aripiprazole (Aripiprazole 5 Mg Tablet) 5 mg PO DAILY@1600 [facility] Last Admin: 05/18/25 15:32 Dose: 5 mg Atorvastatin Calcium (Atorvastatin Calcium 80 Mg Tablet) 80 mg PO DAILY [facility] Last Admin: 05/18/25 08:08 Dose: 80 mg Magnesium Hydroxide (Milk Of Magnesia 30 Ml Oral.Susp) 30 ml PO DAILY PRN PRN Reason: Constipation Methimazole (Methimazole 5 Mg Tablet) 5 mg PO DAILY [facility] Last Admin: 05/18/25 08:08 Dose: 5 mg Mirtazapine (Mirtazapine 15 Mg Tablet) 15 mg PO BEDTIME [facility] Last Admin: 05/17/25 20:50 Dose: 15 mg Nicotine Polacrilex (Nicotine Polacrilex 2 Mg Gum) 4 mg BUCCAL Q2H PRN PRN Reason: Nicotine Cravings Olanzapine (Olanzapine 5 Mg Tablet) 5 mg PO TID PRN PRN Reason: agitation Last Admin: 05/02/25 15:15 Dose: 5 mg Omeprazole (Omeprazole 20 Mg Capsule.Dr) 20 mg PO DAILY@0630 [facility] Last Admin: 05/18/25 06:27 Dose: 20 mg Spironolactone (Spironolactone 25 Mg Tablet) 25 mg PO DAILY [facility]; Protocol Last Admin: 05/18/25 08:08 Dose: 25 mg Trazodone HCl (Trazodone Hcl 25 Mg Halftab) 25 mg PO BEDTIME MRX1 PRN PRN Reason: Insomnia Last Admin: 04/26/25 21:20 Dose: 25 mg Trazodone HCl (Trazodone Hcl 25 Mg Halftab) 12.5 mg PO Q6H PRN PRN Reason: anxiety/agitation Allergies Allergies Allergy/AdvReac Type Severity Reaction Status Date / Time codeine Allergy Intermediate hives Verified 03/28/25 21:43 NSAIDS (Non-Steroidal AdvReac Severe gi bleed Verified 04/05/25 10:40 Anti-Inflamma Assessment & Plan Assessment & Plan (1) MDD (major depressive disorder), recurrent episode, moderate: Status: Acute Code(s): F33.1 - Major depressive disorder, recurrent, moderate (2) Major neurocognitive disorder, due to another medical condition, with behavioral disturbance, severe: Status: Acute Code(s): F02.C18 - Dementia in other diseases classified elsewhere, severe, with other behavioral disturbance (3) Graves disease: Status: Acute Code(s): E05.00 - Thyrotoxicosis with diffuse goiter without thyrotoxic crisis or storm Assessment and Plan: Pt is a 70-year-old female with a PMH significant for?HLD/CAD, NSTEMI 17 years ago, HTN, HFpEF, aniety, and depression who is admitted to [facility] for increasing depression with SI. Pt initially presented to [facility] for profound lethargy and inability to function at home. Workup was negative except for undetectable TSH but T3 and T4 WNL. While in the ED pt became agitated with multiple outbursts, including throwing coffee, kicking and screaming, and swearing at staff. Pt was not redirectable and required IM Zyprexa. Seen today for right ear pain, transaminitis. . Right otitis media. Augmentin 875 mgs BID for 5 days Improved HTN/CAD/HLD Continue amlodipine. Reports hx of NSTEMI 17 years ago No longer taking aspirin or Plavix, unclear if pt stopped taking on her own or at direction of cardiology Continue statin Asymptomatic bradycardia Metoprolol DC Graves disease Thyroid ultrasound without nodules but noted to be hypervascular TSI and TRAb elevated. Free T3 elevated, T4 normal Continue Methimazole 10 mgs daily Repeat labs in one week. Follow labs every 4 weeks. Will need endocrinology follow up. Abdominal pain/transaminitis Abdominal pain resolved If reoccurs we will order HIDA scan Patient reports a history of Hep C- Viral panel undetectable. Patient with a history of EtOH use Abdominal pain resolved. Liver tests reviewed with Dr. Mauro. No further intervention as abdominal pain resolved. Patient refused HIDA scan Hx of HFpEF Not in acute exacerbation Continue spironolactone Thank you for allowing me to participate in the care of this patient. We will continue to follow as needed. Please reconsult of any acute concerns or issues arise Plan Mrs. Martinez is a 70 year-old woman who was initially brought to [facility] due to weakness, profound lethargy and inability to care for herself. While in the ED, pt presented as agitated, combative and reported SI. Daughter reports pt has been struggling to care for herself (house without hot water, in condemnable condition and pt has not showered in several months). Pt is not able to recall events leading to this admission, despite the fact that she is oriented to month, year and place. We discussed risks, benefits and alternative treatment options. Will lower dose of xanax as pt this morning was more somnolent and lethargic although she had not received xanax. Lowered to 0.5mg po TID. continue effexor er 75mg po daily. Pt noted to have BP elevated but this was one point of care- will continue to monitor. No signs of benzo withdrawal. Pending MOCA/ACL. Will also check B12 (note that although no anemia, MCV was high). Repeat of CMP shows some degree of dehydration (elevated BUN from 14 to 23)- encourage fluids. PLAN 04/04 LFTs trending up, GI following, denies any abdominal pain, no vomiting, afebrile. pt confused as to why she is here, somewhat suspicious about her children wanting to leave her here. Will hold on starting medications until LFTs and bilirubin normalizes. Pending US of gallbladder today. 04/05 pt forgetful from day to day, confabulation with often seems more like blaming her children for doing things behind her back and thinks they are lying when contract technical writer explains concern in terms of memory/cog impairments. 04/06 LFTs trending down. Will start abilify for mood/suspiciousness. 04/08 continue tx. 04/09: Continue current regimen and plans. Trial of Fioricet b.i.d. PRN 04/11 increase abilify for mood. reading of MRI with neuroquant- still pending. CAUTION WITH ACETAMINOPHEN AND LFTS. ALSO CAUTION WITH NSAID- not H&H down since admission. She was started on Tapazole 10mg po daily for graves disease- newly dx here. HIDA scan for abdominal pain not completed due to pt declining- may need to reorder if pt presents with abdominal pain or again LFTs elevation. 04/12: stable, demented. asking about discharge home when awaiting placement. MRI c neuroquant pending. stable presentation. continue current mgmt for now. 04/13: poor sleep due to disruptive peer. resting today. no request for discharge. no behavioral issues. continue current mgmt. 04/14: slept 5 hours. somewhat hypomanic today, circumstantial and moderately disorganized. agreeable to stay for the time being, per SW. increase abilify to 15 mg daily for mood stability. call placed to radiology for read on MRI brain done 04/05/25. 04/15: head MRI read remains absent. stable presentation. resting today, not activated or irritable. continue current mgmt. 04/16: stable presentation. remains a bit more organized and less labile than prior, since increase in abilify dosing. also a bit more tired. T/C moving abilify to HS to prevent daytime sedation. 04/17: lying in bed, calm. does not mention agitation around midnight last night. no complaints or requests. continue current mgmt. continues more organized and less labile. 04/18: MRI brain c/w AD and vascular dementia. start donepezil. remains less labile and irritable since abilify dosing increase. awaiting placement. continue current mgmt. 04/19: appears to be endorsing AH and expressing paranoia re staff today. increase abilify once again, this time with added dose in the evening. otherwise continue current mgmt. 04/20/25: Patient slept for 8 hours, was medication compliant. Denied side effects. However per nursing staff, patient was struggle with taking medication last night. She has sundown symptoms, more irritable in the afternoon and evening. During conversation with this provider, patient reports that she feel irritable but denies anxiety or depression. She said medications do not do anything good. Sucks being in here. Then she is more irritable when we asked about safety concern questions. it Is a bunch of bullshit, I am done talking . However she continued engaged in conversation when this provider review with her regarding Abilify scheduled time of the afternoon dose. She is working on menu at the same time. Per nursing, patient struggle with taking Abilify in the afternoon yesterday, after he she has own symptoms. Therefore I will change to 1600 so nursing staff can offer her at around 3 PM. Does not make any paranoid statements. 04/20: tired, resting in the morning. no paranoid delusions expressed. court paperwork completed for affirming HCP. continue current mgmt. 04/22: as for yesterday. reportedly c/o chills, shivering overnight, denies today. afebrile. continue current mgmt. 04/23: continue current tx 04/24: continue current tx 04/25: stable, continue current mgmt. 04/26: no change in presentation. HCP affirmation hearing tomorrow. continue current mgmt. 04/27: no change in presentation. HCP affirmation hearing today. continue current mgmt. 04/28 continue current medications. 04/29 continue tx. 04/30: continue current management and treatment plan. 05/01: continue current management and treatment plan. 05/02: Continue current management and treatment plan. 05/03 continue tx. 05/04 continue tx 05/05 continue tx. 05/06 continue tx. 05/09 continue tx. 05/10 continue tx. 05/11 continue tx. monitor HR. 05/12 continue tx. 05/13 continue tx. monitor HR, expecting some improvement with d/c of aricept, reduction of methimazole. 05/14: continue 05/15: continue 05/16 continue tx. HR better. no bradicardia 05/17 continue tx. 05/18 cnotinue tx. Reason for continued inpatient stay Substantial Risk for: inability to function Time Spent With Patient Time: Total time managing care of this patient today ____ minutes.
[2025-05-18 20:00] VITALS: BP 135/74; PULSE 63; RESP 17; TEMP 36.4; O2SAT 95
[2025-05-19 08:31] VITALS: BMI 18.1
[2025-05-19 08:40] VITALS: BP 153/97; PULSE 34; RESP 16; TEMP 35.6; O2SAT 96
--- NOTE | 2025-05-19 09:04 | HO.PSYCHPN ---
Subjective Subjective Date of Service: 05/19/25 Reason For Visit: Bradycardia Subjective Notes: Conditional Voluntary Healthcare Proxy: Yes Interim History: Pt sleeping through the night. She presents as pleasant when approached. No behavioral concerns. Had one reading of HR of 34, but was transient. Denies any abdominal pain. LFTs trending down. Review of Systems Review of Systems Denies any shortness of breath, chest pain, dizziness, lightheadedness, abdominal pain or discomfort, nausea vomiting or diarrhea Yes all other systems are reviewed and are negative Mental Status Exam Mental Status Exam Narrative: Appearance: wearing hospital gown, thin, very poor hygiene, , in NAD Behavior: superficially cooperative; isolative Psychomotor: Some psychomotor retardation Speech: mostly clear, normal rate/rhythm/volume, spontaneous TP: Goal directed; can be circumstantial TC: feeling good and resting. Mood: good Affect: congruent SI: denies HI: denies VH/AH: no signs Delusions: no overt delusional content but noted confabulation. Insight/judgment: impaired x 2. memory/cog: alert, oriented to place, month and year but not to situation. Significant difficulty remembering events that led to this admission. MOCA Diagnostics Vital Signs (24Hr): Vital Signs - 24 hr 05/18/25 20:00 05/19/25 08:40 Temperature 97.5 F 96.1 F L Pulse Rate 63 34 L Respiratory Rate 17 16 Blood Pressure 135/74 153/97 H Pulse Oximetry 95 96 Oxygen Delivery Method Room Air BMI result Body Mass Index 18.1 Labs 05/13/25 10:05 05/18/25 10:15 Labs: Laboratory Results - last 48 hr 05/18/25 10:15 Sodium 139 Potassium 3.8 Chloride 107 Carbon Dioxide 26 Anion Gap 10 L BUN 15 Creatinine 0.67 Estim Creat Clear Calc 60.6 Estimated GFR > 60 Random Glucose 136 H Calcium 9.1 Total Bilirubin 0.1 AST 30 ALT 60 H Alkaline Phosphatase 246 H Total Protein 7.1 Albumin 3.9 Imaging Radiology Impressions: ITS Impressions Thyroid Ultrasound 04/03/25 11:58 IMPRESSION: Heterogeneous hypervascular thyroid gland. No discrete nodules are identified. ACR TI-RADS Guidelines TR1 (0 points): Benign. No follow-up or biopsy required TR2 (2 points): Not Suspicious. No biopsy or follow up indicated TR3 (3 points): Mildly Suspicious. FNA if >= 2.5 cm, Follow if >= 1.5 cm TR4 (4-6 points): Moderately Suspicious. FNA if >= 1.5 cm, Follow if >= 1.0 cm TR5 (>=7 points): Highly Suspicious. FNA if >= 1.0 cm, Follow if >= 0.5 cm Electronically signed by: García Young MD 04/04/2025 07:08 AM EDT RP Abdomen X-Ray 04/05/25 11:25 IMPRESSION: No radiopaque foreign body is identified. Electronically signed by: García Young MD 04/05/2025 11:45 AM EDT RP Chest X-Ray 04/05/25 11:25 IMPRESSION: Clear lungs. No radiopaque foreign body is identified. Electronically signed by: García Young MD 04/05/2025 11:46 AM EDT RP Skull X-Ray 04/05/25 11:25 IMPRESSION: No radiopaque foreign body is identified. Electronically signed by: García Young MD 04/05/2025 11:47 AM EDT RP Brain MRI 04/05/25 11:38 IMPRESSION: 1. No evidence of intracranial hemorrhage, acute infarction, mass effect, or edema. 2. Age advanced cerebral and cerebellar volume loss. Please refer to the above, and the full neuroquantitative report included with the examination. 3. Moderate to severe changes of small vessel ischemia. 4. Crib d'etat appearance of the basal ganglia suggestive of sequela of chronic hypertension. Electronically signed by: Ruddy Moreau MD 04/18/2025 08:28 AM EDT RP Medications Medications Current Medications Acetaminophen (Acetaminophen 325 Mg Tablet) 650 mg PO Q6H PRN PRN Reason: Pain 1-10 or headache Last Admin: 05/19/25 00:18 Dose: 650 mg Acetaminophen/Butalbital/Caffeine (Butalb/Acetamin/Caff 50/325/40 Tablet) 1 tab PO BID PRN PRN Reason: Pain, Moderate(Pain Scale 4-6) Last Admin: 05/18/25 10:05 Dose: 1 tab Al Hydroxide/Mg Hydroxide (Magnesium Hydrox/Alum Hydrox 30 Ml Oral.Susp) 30 ml PO Q6H PRN PRN Reason: Heartburn/Nausea Amlodipine Besylate (Amlodipine Besylate 5 Mg Tablet) 5 mg PO DAILY [facility]; Protocol Last Admin: 05/19/25 08:41 Dose: 5 mg Aripiprazole (Aripiprazole 15 Mg Tablet) 15 mg PO DAILY [facility] Last Admin: 05/19/25 08:41 Dose: 15 mg Aripiprazole (Aripiprazole 5 Mg Tablet) 5 mg PO DAILY@1600 [facility] Last Admin: 05/18/25 15:32 Dose: 5 mg Atorvastatin Calcium (Atorvastatin Calcium 80 Mg Tablet) 80 mg PO DAILY [facility] Last Admin: 05/19/25 08:41 Dose: 80 mg Magnesium Hydroxide (Milk Of Magnesia 30 Ml Oral.Susp) 30 ml PO DAILY PRN PRN Reason: Constipation Methimazole (Methimazole 5 Mg Tablet) 5 mg PO DAILY [facility] Last Admin: 05/19/25 08:42 Dose: 5 mg Mirtazapine (Mirtazapine 15 Mg Tablet) 15 mg PO BEDTIME [facility] Last Admin: 05/18/25 21:00 Dose: 15 mg Nicotine Polacrilex (Nicotine Polacrilex 2 Mg Gum) 4 mg BUCCAL Q2H PRN PRN Reason: Nicotine Cravings Olanzapine (Olanzapine 5 Mg Tablet) 5 mg PO TID PRN PRN Reason: agitation Last Admin: 05/02/25 15:15 Dose: 5 mg Omeprazole (Omeprazole 20 Mg Capsule.Dr) 20 mg PO DAILY@0630 [facility] Last Admin: 05/19/25 06:23 Dose: 20 mg Spironolactone (Spironolactone 25 Mg Tablet) 25 mg PO DAILY [facility]; Protocol Last Admin: 05/19/25 08:41 Dose: 25 mg Trazodone HCl (Trazodone Hcl 25 Mg Halftab) 25 mg PO BEDTIME MRX1 PRN PRN Reason: Insomnia Last Admin: 04/26/25 21:20 Dose: 25 mg Trazodone HCl (Trazodone Hcl 25 Mg Halftab) 12.5 mg PO Q6H PRN PRN Reason: anxiety/agitation Allergies Allergies Allergy/AdvReac Type Severity Reaction Status Date / Time codeine Allergy Intermediate hives Verified 03/28/25 21:43 NSAIDS (Non-Steroidal AdvReac Severe gi bleed Verified 04/05/25 10:40 Anti-Inflamma Assessment & Plan Assessment & Plan (1) MDD (major depressive disorder), recurrent episode, moderate: Status: Acute Code(s): F33.1 - Major depressive disorder, recurrent, moderate (2) Major neurocognitive disorder, due to another medical condition, with behavioral disturbance, severe: Status: Acute Code(s): F02.C18 - Dementia in other diseases classified elsewhere, severe, with other behavioral disturbance (3) Graves disease: Status: Acute Code(s): E05.00 - Thyrotoxicosis with diffuse goiter without thyrotoxic crisis or storm Assessment and Plan: Pt is a 70-year-old female with a PMH significant for?HLD/CAD, NSTEMI 17 years ago, HTN, HFpEF, aniety, and depression who is [facility] for increasing depression with SI. Pt initially presented to [facility] for profound lethargy and inability to function at home. Workup was negative except for undetectable TSH but T3 and T4 WNL. While in the ED pt became agitated with multiple outbursts, including throwing coffee, kicking and screaming, and swearing at staff. Pt was not redirectable and required IM Zyprexa. Seen today for right ear pain, transaminitis. . Right otitis media. Augmentin 875 mgs BID for 5 days Improved HTN/CAD/HLD Continue amlodipine. Reports hx of NSTEMI 17 years ago No longer taking aspirin or Plavix, unclear if pt stopped taking on her own or at direction of cardiology Continue statin Asymptomatic bradycardia Metoprolol DC Graves disease Thyroid ultrasound without nodules but noted to be hypervascular TSI and TRAb elevated. Free T3 elevated, T4 normal Continue Methimazole 10 mgs daily Repeat labs in one week. Follow labs every 4 weeks. Will need endocrinology follow up. Abdominal pain/transaminitis Abdominal pain resolved If reoccurs we will order HIDA scan Patient reports a history of Hep C- Viral panel undetectable. Patient with a history of EtOH use Abdominal pain resolved. Liver tests reviewed with Dr. Mauro. No further intervention as abdominal pain resolved. Patient refused HIDA scan Hx of HFpEF Not in acute exacerbation Continue spironolactone Thank you for allowing me to participate in the care of this patient. We will continue to follow as needed. Please reconsult of any acute concerns or issues arise Plan Mrs. Martinez is a 70 year-old woman who was initially brought to [facility] due to weakness, profound lethargy and inability to care for herself. While in the ED, pt presented as agitated, combative and reported SI. Daughter reports pt has been struggling to care for herself (house without hot water, in condemnable condition and pt has not showered in several months). Pt is not able to recall events leading to this admission, despite the fact that she is oriented to month, year and place. We discussed risks, benefits and alternative treatment options. Will lower dose of xanax as pt this morning was more somnolent and lethargic although she had not received xanax. Lowered to 0.5mg po TID. continue effexor er 75mg po daily. Pt noted to have BP elevated but this was one point of care- will continue to monitor. No signs of benzo withdrawal. Pending MOCA/ACL. Will also check B12 (note that although no anemia, MCV was high). Repeat of CMP shows some degree of dehydration (elevated BUN from 14 to 23)- encourage fluids. PLAN 04/04 LFTs trending up, GI following, denies any abdominal pain, no vomiting, afebrile. pt confused as to why she is here, somewhat suspicious about her children wanting to leave her here. Will hold on starting medications until LFTs and bilirubin normalizes. Pending US of gallbladder today. 04/05 pt forgetful from day to day, confabulation with often seems more like blaming her children for doing things behind her back and thinks they are lying when insurance underwriter explains concern in terms of memory/cog impairments. 04/06 LFTs trending down. Will start abilify for mood/suspiciousness. 04/08 continue tx. 04/09: Continue current regimen and plans. Trial of Fioricet b.i.d. PRN 04/11 increase abilify for mood. reading of MRI with neuroquant- still pending. CAUTION WITH ACETAMINOPHEN AND LFTS. ALSO CAUTION WITH NSAID- not H&H down since admission. She was started on Tapazole 10mg po daily for graves disease- newly dx here. HIDA scan for abdominal pain not completed due to pt declining- may need to reorder if pt presents with abdominal pain or again LFTs elevation. 04/12: stable, demented. asking about discharge home when awaiting placement. MRI c neuroquant pending. stable presentation. continue current mgmt for now. 04/13: poor sleep due to disruptive peer. resting today. no request for discharge. no behavioral issues. continue current mgmt. 04/14: slept 5 hours. somewhat hypomanic today, circumstantial and moderately disorganized. agreeable to stay for the time being, per SW. increase abilify to 15 mg daily for mood stability. call placed to radiology for read on MRI brain done 04/05/25. 04/15: head MRI read remains absent. stable presentation. resting today, not activated or irritable. continue current mgmt. 04/16: stable presentation. remains a bit more organized and less labile than prior, since increase in abilify dosing. also a bit more tired. T/C moving abilify to HS to prevent daytime sedation. 04/17: lying in bed, calm. does not mention agitation around midnight last night. no complaints or requests. continue current mgmt. continues more organized and less labile. 04/18: MRI brain c/w AD and vascular dementia. start donepezil. remains less labile and irritable since abilify dosing increase. awaiting placement. continue current mgmt. 04/19: appears to be endorsing AH and expressing paranoia re staff today. increase abilify once again, this time with added dose in the evening. otherwise continue current mgmt. 04/20/25: Patient slept for 8 hours, was medication compliant. Denied side effects. However per nursing staff, patient was struggle with taking medication last night. She has sundown symptoms, more irritable in the afternoon and evening. During conversation with this provider, patient reports that she feel irritable but denies anxiety or depression. She said medications do not do anything good. Sucks being in here. Then she is more irritable when we asked about safety concern questions. it Is a bunch of bullshit, I am done talking . However she continued engaged in conversation when this provider review with her regarding Abilify scheduled time of the afternoon dose. She is working on menu at the same time. Per nursing, patient struggle with taking Abilify in the afternoon yesterday, after he she has sundown symptoms. Therefore I will change to 1600 so nursing staff can offer her at around 3 PM. Does not make any paranoid statements. 04/20: tired, resting in the morning. no paranoid delusions expressed. court paperwork completed for affirming HCP. continue current mgmt. 04/22: as for yesterday. reportedly c/o chills, shivering overnight, denies today. afebrile. continue current mgmt. 04/23: continue current tx 04/24: continue current tx 04/25: stable, continue current mgmt. 04/26: no change in presentation. HCP affirmation hearing tomorrow. continue current mgmt. 04/27: no change in presentation. HCP affirmation hearing today. continue current mgmt. 04/28 continue current medications. 04/29 continue tx. 04/30: continue current management and treatment plan. 05/01: continue current management and treatment plan. 05/02: Continue current management and treatment plan. 05/03 continue tx. 05/04 continue tx 05/05 continue tx. 05/06 continue tx. 05/09 continue tx. 05/10 continue tx. 05/11 continue tx. monitor HR. 05/12 continue tx. 05/13 continue tx. monitor HR, expecting some improvement with d/c of aricept, reduction of methimazole. 05/14: continue 05/15: continue 05/16 continue tx. HR better. no bradicardia 05/17 continue tx. 05/18 cnotinue tx. 05/19 continue tx Reason for continued inpatient stay Substantial Risk for: inability to function Time Spent With Patient Time: Total time managing care of this patient today ____ minutes.
[2025-05-19] MEDS: Butalb/Acetamin/Caff 50/325/40 TABLET 1 TAB PO (12:56)
[2025-05-19 20:00] VITALS: BP 128/83; PULSE 67; RESP 18; TEMP 36; O2SAT 96
[2025-05-20 08:00] VITALS: BP 127/58; PULSE 50; RESP 16; TEMP 35.6; O2SAT 96
[2025-05-20 08:56] VITALS: BP 127/58
[2025-05-20 08:57] VITALS: BP 127/58
[2025-05-20] MEDS: Butalb/Acetamin/Caff 50/325/40 TABLET 1 TAB PO (11:52)
--- NOTE | 2025-05-20 15:54 | HO.PSYCHPN ---
Subjective Subjective Date of Service: 05/20/25 Reason For Visit: Bradycardia Interim History: Pt sleeping through the night. She presents as pleasant when approached. No behavioral concerns. Had one reading of HR of 34, but was transient. Denies any abdominal pain. LFTs trending down. Review of Systems Review of Systems Denies any shortness of breath, chest pain, dizziness, lightheadedness, abdominal pain or discomfort, nausea vomiting or diarrhea Yes all other systems are reviewed and are negative Mental Status Exam Mental Status Exam Narrative: Appearance: wearing hospital gown, thin, very poor hygiene, , in NAD Behavior: superficially cooperative; isolative Psychomotor: Some psychomotor retardation Speech: mostly clear, normal rate/rhythm/volume, spontaneous TP: Goal directed; can be circumstantial TC: feeling good and resting. Mood: good Affect: congruent SI: denies HI: denies VH/AH: no signs Delusions: no overt delusional content but noted confabulation. Insight/judgment: impaired x 2. memory/cog: alert, oriented to place, month and year but not to situation. Significant difficulty remembering events that led to this admission. [facility] Diagnostics Vital Signs (24Hr): Vital Signs - 24 hr 05/19/25 20:00 05/20/25 08:00 05/20/25 08:56 Temperature 96.8 F 96.1 F L Pulse Rate 67 50 Respiratory Rate 18 16 Blood Pressure 128/83 127/58 L 127/58 L Pulse Oximetry 96 96 Oxygen Delivery Method Room Air Room Air 05/20/25 08:57 Temperature Pulse Rate Respiratory Rate Blood Pressure 127/58 L Pulse Oximetry Oxygen Delivery Method BMI result Body Mass Index 18.1 Labs 05/13/25 10:05 05/18/25 10:15 Imaging Radiology Impressions: ITS Impressions Thyroid Ultrasound 04/03/25 11:58 IMPRESSION: Heterogeneous hypervascular thyroid gland. No discrete nodules are identified. ACR TI-RADS Guidelines TR1 (0 points): Benign. No follow-up or biopsy required TR2 (2 points): Not Suspicious. No biopsy or follow up indicated TR3 (3 points): Mildly Suspicious. FNA if >= 2.5 cm, Follow if >= 1.5 cm TR4 (4-6 points): Moderately Suspicious. FNA if >= 1.5 cm, Follow if >= 1.0 cm TR5 (>=7 points): Highly Suspicious. FNA if >= 1.0 cm, Follow if >= 0.5 cm Electronically signed by: García Young MD 04/04/2025 07:08 AM EDT RP Abdomen X-Ray 04/05/25 11:25 IMPRESSION: No radiopaque foreign body is identified. Electronically signed by: García Young MD 04/05/2025 11:45 AM EDT RP Chest X-Ray 04/05/25 11:25 IMPRESSION: Clear lungs. No radiopaque foreign body is identified. Electronically signed by: García Young MD 04/05/2025 11:46 AM EDT RP Skull X-Ray 04/05/25 11:25 IMPRESSION: No radiopaque foreign body is identified. Electronically signed by: García Young MD 04/05/2025 11:47 AM EDT RP Brain MRI 04/05/25 11:38 IMPRESSION: 1. No evidence of intracranial hemorrhage, acute infarction, mass effect, or edema. 2. Age advanced cerebral and cerebellar volume loss. Please refer to the above, and the full neuroquantitative report included with the examination. 3. Moderate to severe changes of small vessel ischemia. 4. Crib d'etat appearance of the basal ganglia suggestive of sequela of chronic hypertension. Electronically signed by: Ruddy Moreau MD 04/18/2025 08:28 AM EDT RP Medications Medications Current Medications Acetaminophen (Acetaminophen 325 Mg Tablet) 650 mg PO Q6H PRN PRN Reason: Pain 1-10 or headache Last Admin: 05/19/25 00:18 Dose: 650 mg Acetaminophen/Butalbital/Caffeine (Butalb/Acetamin/Caff 50/325/40 Tablet) 1 tab PO BID PRN PRN Reason: Pain, Moderate(Pain Scale 4-6) Last Admin: 05/20/25 11:52 Dose: 1 tab Al Hydroxide/Mg Hydroxide (Magnesium Hydrox/Alum Hydrox 30 Ml Oral.Susp) 30 ml PO Q6H PRN PRN Reason: Heartburn/Nausea Amlodipine Besylate (Amlodipine Besylate 5 Mg Tablet) 5 mg PO DAILY [facility]; Protocol Last Admin: 05/20/25 08:56 Dose: 5 mg Aripiprazole (Aripiprazole 15 Mg Tablet) 15 mg PO DAILY [facility] Last Admin: 05/20/25 08:57 Dose: 15 mg Aripiprazole (Aripiprazole 5 Mg Tablet) 5 mg PO DAILY@1600 [facility] Last Admin: 05/19/25 16:58 Dose: 5 mg Atorvastatin Calcium (Atorvastatin Calcium 80 Mg Tablet) 80 mg PO DAILY [facility] Last Admin: 05/20/25 08:57 Dose: 80 mg Magnesium Hydroxide (Milk Of Magnesia 30 Ml Oral.Susp) 30 ml PO DAILY PRN PRN Reason: Constipation Methimazole (Methimazole 5 Mg Tablet) 5 mg PO DAILY [facility] Last Admin: 05/20/25 08:57 Dose: 5 mg Mirtazapine (Mirtazapine 15 Mg Tablet) 15 mg PO BEDTIME [facility] Last Admin: 05/19/25 20:34 Dose: 15 mg Nicotine Polacrilex (Nicotine Polacrilex 2 Mg Gum) 4 mg BUCCAL Q2H PRN PRN Reason: Nicotine Cravings Olanzapine (Olanzapine 5 Mg Tablet) 5 mg PO TID PRN PRN Reason: agitation Last Admin: 05/02/25 15:15 Dose: 5 mg Omeprazole (Omeprazole 20 Mg Capsule.Dr) 20 mg PO DAILY@0630 [facility] Last Admin: 05/20/25 06:25 Dose: 20 mg Spironolactone (Spironolactone 25 Mg Tablet) 25 mg PO DAILY [facility]; Protocol Last Admin: 05/20/25 08:57 Dose: 25 mg Trazodone HCl (Trazodone Hcl 25 Mg Halftab) 25 mg PO BEDTIME MRX1 PRN PRN Reason: Insomnia Last Admin: 04/26/25 21:20 Dose: 25 mg Allergies Allergies Allergy/AdvReac Type Severity Reaction Status Date / Time codeine Allergy Intermediate hives Verified 03/28/25 21:43 NSAIDS (Non-Steroidal AdvReac Severe gi bleed Verified 04/05/25 10:40 Anti-Inflamma Assessment & Plan Assessment & Plan (1) MDD (major depressive disorder), recurrent episode, moderate: Status: Acute Code(s): F33.1 - Major depressive disorder, recurrent, moderate (2) Major neurocognitive disorder, due to another medical condition, with behavioral disturbance, severe: Status: Acute Code(s): F02.C18 - Dementia in other diseases classified elsewhere, severe, with other behavioral disturbance (3) Graves disease: Status: Acute Code(s): E05.00 - Thyrotoxicosis with diffuse goiter without thyrotoxic crisis or storm Plan Mrs. Martinez is a 70 year-old woman who was initially brought to [facility] due to weakness, profound lethargy and inability to care for herself. While in the ED, pt presented as agitated, combative and reported SI. Daughter reports pt has been struggling to care for herself (house without hot water, in condemnable condition and pt has not showered in several months). Pt is not able to recall events leading to this admission, despite the fact that she is oriented to month, year and place. We discussed risks, benefits and alternative treatment options. Will lower dose of xanax as pt this morning was more somnolent and lethargic although she had not received xanax. Lowered to 0.5mg po TID. continue effexor er 75mg po daily. Pt noted to have BP elevated but this was one point of care- will continue to monitor. No signs of benzo withdrawal. Pending MOCA/ACL. Will also check B12 (note that although no anemia, MCV was high). Repeat of CMP shows some degree of dehydration (elevated BUN from 14 to 23)- encourage fluids. PLAN 04/04 LFTs trending up, GI following, denies any abdominal pain, no vomiting, afebrile. pt confused as to why she is here, somewhat suspicious about her children wanting to leave her here. Will hold on starting medications until LFTs and bilirubin normalizes. Pending US of gallbladder today. 04/05 pt forgetful from day to day, confabulation with often seems more like blaming her children for doing things behind her back and thinks they are lying when resume writer explains concern in terms of memory/cog impairments. 04/06 LFTs trending down. Will start abilify for mood/suspiciousness. 04/08 continue tx. 04/09: Continue current regimen and plans. Trial of Fioricet b.i.d. PRN 04/11 increase abilify for mood. reading of MRI with neuroquant- still pending. CAUTION WITH ACETAMINOPHEN AND LFTS. ALSO CAUTION WITH NSAID- not H&H down since admission. She was started on Tapazole 10mg po daily for graves disease- newly dx here. HIDA scan for abdominal pain not completed due to pt declining- may need to reorder if pt presents with abdominal pain or again LFTs elevation. 04/12: stable, demented. asking about discharge home when awaiting placement. MRI c neuroquant pending. stable presentation. continue current mgmt for now. 04/13: poor sleep due to disruptive peer. resting today. no request for discharge. no behavioral issues. continue current mgmt. 04/14: slept 5 hours. somewhat hypomanic today, circumstantial and moderately disorganized. agreeable to stay for the time being, per SW. increase abilify to 15 mg daily for mood stability. call placed to radiology for read on MRI brain done 04/05/25. 04/15: head MRI read remains absent. stable presentation. resting today, not activated or irritable. continue current mgmt. 04/16: stable presentation. remains a bit more organized and less labile than prior, since increase in abilify dosing. also a bit more tired. T/C moving abilify to HS to prevent daytime sedation. 04/17: lying in bed, calm. does not mention agitation around midnight last night. no complaints or requests. continue current mgmt. continues more organized and less labile. 04/18: MRI brain c/w AD and vascular dementia. start donepezil. remains less labile and irritable since abilify dosing increase. awaiting placement. continue current mgmt. 04/19: appears to be endorsing AH and expressing paranoia re staff today. increase abilify once again, this time with added dose in the evening. otherwise continue current mgmt. 04/20/25: Patient slept for 8 hours, was medication compliant. Denied side effects. However per nursing staff, patient was struggle with taking medication last night. She has sundown symptoms, more irritable in the afternoon and evening. During conversation with this provider, patient reports that she feel irritable but denies anxiety or depression. She said medications do not do anything good. Sucks being in here. Then she is more irritable when we asked about safety concern questions. it Is a bunch of bullshit, I am done talking . However she continued engaged in conversation when this provider review with her regarding Abilify scheduled time of the afternoon dose. She is working on menu at the same time. Per nursing, patient struggle with taking Abilify in the afternoon yesterday, after he she has sundown symptoms. Therefore I will change to 1600 so nursing staff can offer her at around 3 PM. Does not make any paranoid statements. 04/20: tired, resting in the morning. no paranoid delusions expressed. court paperwork completed for affirming HCP. continue current mgmt. 04/22: as for yesterday. reportedly c/o chills, shivering overnight, denies today. afebrile. continue current mgmt. 04/23: continue current tx 04/24: continue current tx 04/25: stable, continue current mgmt. 04/26: no change in presentation. HCP affirmation hearing tomorrow. continue current mgmt. 04/27: no change in presentation. HCP affirmation hearing today. continue current mgmt. 04/28 continue current medications. 04/29 continue tx. 04/30: continue current management and treatment plan. 05/01: continue current management and treatment plan. 05/02: Continue current management and treatment plan. 05/03 continue tx. 05/04 continue tx 05/05 continue tx. 05/06 continue tx. 05/09 continue tx. 05/10 continue tx. 05/11 continue tx. monitor HR. 05/12 continue tx. 05/13 continue tx. monitor HR, expecting some improvement with d/c of aricept, reduction of methimazole. 05/14: continue 05/15: continue 05/16 continue tx. HR better. no bradicardia 05/17 continue tx. 05/18 cnotinue tx. 05/19 continue tx 05/20 continue tx. awaiting placement. Reason for continued inpatient stay Substantial Risk for: inability to function Time Spent With Patient Time: Total time managing care of this patient today ____ minutes.
[2025-05-20 20:00] VITALS: BP 102/65; PULSE 58; RESP 16; TEMP 36.3; O2SAT 97
[2025-05-21 08:00] VITALS: BP 92/52; PULSE 38; RESP 12; TEMP 35.8; O2SAT 97
[2025-05-21 09:37] VITALS: BP 92/52
[2025-05-21 09:38] VITALS: BP 92/52
[2025-05-21] MEDS: Butalb/Acetamin/Caff 50/325/40 TABLET 1 TAB PO (12:04)
--- NOTE | 2025-05-21 14:47 | HO.PSYCHPN ---
Subjective Subjective Date of Service: 05/21/25 Reason For Visit: Bradycardia Interim History: Met with patient; discussed with team; chart review pt reports she's good and denies psych symptoms; shares her excitement that she'll discharge to her daughters house and how they're setting it up for her. Mental Status Exam Mental Status Exam Narrative: Appearance: casual attire; appropriate , in NAD Behavior: superficially cooperative; isolative Psychomotor: no psychomotor retardation Speech: mostly clear, normal rate/rhythm/volume, spontaneous TP: Goal directed; can be circumstantial TC: feeling good and resting. Mood: good Affect: congruent SI: denies HI: denies VH/AH: no signs Delusions: no overt delusional content but noted confabulation. Insight/judgment: impaired x 2. memory/cog: alert, oriented to place, month and year but not to situation. Significant difficulty remembering events that led to this admission. [facility] Diagnostics Vital Signs (24Hr): Vital Signs - 24 hr 05/20/25 20:00 05/21/25 08:00 05/21/25 09:37 Temperature 97.3 F 96.5 F L Pulse Rate 58 38 L Respiratory Rate 16 12 Blood Pressure 102/65 92/52 L 92/52 L Pulse Oximetry 97 97 Oxygen Delivery Method Room Air Room Air 05/21/25 09:38 Temperature Pulse Rate Respiratory Rate Blood Pressure 92/52 L Pulse Oximetry Oxygen Delivery Method BMI result Body Mass Index 18.1 Labs 05/13/25 10:05 05/18/25 10:15 Imaging Radiology Impressions: ITS Impressions Thyroid Ultrasound 04/03/25 11:58 IMPRESSION: Heterogeneous hypervascular thyroid gland. No discrete nodules are identified. ACR TI-RADS Guidelines TR1 (0 points): Benign. No follow-up or biopsy required TR2 (2 points): Not Suspicious. No biopsy or follow up indicated TR3 (3 points): Mildly Suspicious. FNA if >= 2.5 cm, Follow if >= 1.5 cm TR4 (4-6 points): Moderately Suspicious. FNA if >= 1.5 cm, Follow if >= 1.0 cm TR5 (>=7 points): Highly Suspicious. FNA if >= 1.0 cm, Follow if >= 0.5 cm Electronically signed by: García Young MD 04/04/2025 07:08 AM EDT RP Abdomen X-Ray 04/05/25 11:25 IMPRESSION: No radiopaque foreign body is identified. Electronically signed by: García Young MD 04/05/2025 11:45 AM EDT RP Chest X-Ray 04/05/25 11:25 IMPRESSION: Clear lungs. No radiopaque foreign body is identified. Electronically signed by: García Young MD 04/05/2025 11:46 AM EDT RP Skull X-Ray 04/05/25 11:25 IMPRESSION: No radiopaque foreign body is identified. Electronically signed by: García Young MD 04/05/2025 11:47 AM EDT RP Brain MRI 04/05/25 11:38 IMPRESSION: 1. No evidence of intracranial hemorrhage, acute infarction, mass effect, or edema. 2. Age advanced cerebral and cerebellar volume loss. Please refer to the above, and the full neuroquantitative report included with the examination. 3. Moderate to severe changes of small vessel ischemia. 4. Crib d'etat appearance of the basal ganglia suggestive of sequela of chronic hypertension. Electronically signed by: Ruddy Moreau MD 04/18/2025 08:28 AM EDT RP Medications Medications Current Medications Acetaminophen (Acetaminophen 325 Mg Tablet) 650 mg PO Q6H PRN PRN Reason: Pain 1-10 or headache Last Admin: 05/19/25 00:18 Dose: 650 mg Acetaminophen/Butalbital/Caffeine (Butalb/Acetamin/Caff 50/325/40 Tablet) 1 tab PO BID PRN PRN Reason: Pain, Moderate(Pain Scale 4-6) Last Admin: 05/21/25 12:04 Dose: 1 tab Al Hydroxide/Mg Hydroxide (Magnesium Hydrox/Alum Hydrox 30 Ml Oral.Susp) 30 ml PO Q6H PRN PRN Reason: Heartburn/Nausea Amlodipine Besylate (Amlodipine Besylate 5 Mg Tablet) 5 mg PO DAILY [facility]; Protocol Last Admin: 05/21/25 09:38 Dose: 5 mg Aripiprazole (Aripiprazole 15 Mg Tablet) 15 mg PO DAILY [facility] Last Admin: 05/21/25 09:38 Dose: 15 mg Aripiprazole (Aripiprazole 5 Mg Tablet) 5 mg PO DAILY@1600 [facility] Last Admin: 05/20/25 16:22 Dose: 5 mg Atorvastatin Calcium (Atorvastatin Calcium 80 Mg Tablet) 80 mg PO DAILY [facility] Last Admin: 05/21/25 09:37 Dose: 80 mg Magnesium Hydroxide (Milk Of Magnesia 30 Ml Oral.Susp) 30 ml PO DAILY PRN PRN Reason: Constipation Methimazole (Methimazole 5 Mg Tablet) 5 mg PO DAILY [facility] Last Admin: 05/21/25 09:38 Dose: 5 mg Mirtazapine (Mirtazapine 15 Mg Tablet) 15 mg PO BEDTIME [facility] Last Admin: 05/20/25 20:22 Dose: 15 mg Nicotine Polacrilex (Nicotine Polacrilex 2 Mg Gum) 4 mg BUCCAL Q2H PRN PRN Reason: Nicotine Cravings Olanzapine (Olanzapine 5 Mg Tablet) 5 mg PO TID PRN PRN Reason: agitation Last Admin: 05/02/25 15:15 Dose: 5 mg Omeprazole (Omeprazole 20 Mg Capsule.Dr) 20 mg PO DAILY@0630 [facility] Last Admin: 05/21/25 06:37 Dose: 20 mg Spironolactone (Spironolactone 25 Mg Tablet) 25 mg PO DAILY [facility]; Protocol Last Admin: 05/21/25 09:37 Dose: 25 mg Trazodone HCl (Trazodone Hcl 25 Mg Halftab) 25 mg PO BEDTIME MRX1 PRN PRN Reason: Insomnia Last Admin: 04/26/25 21:20 Dose: 25 mg Allergies Allergies Allergy/AdvReac Type Severity Reaction Status Date / Time codeine Allergy Intermediate hives Verified 03/28/25 21:43 NSAIDS (Non-Steroidal AdvReac Severe gi bleed Verified 04/05/25 10:40 Anti-Inflamma Assessment & Plan Assessment & Plan (1) MDD (major depressive disorder), recurrent episode, moderate: Status: Acute Code(s): F33.1 - Major depressive disorder, recurrent, moderate (2) Major neurocognitive disorder, due to another medical condition, with behavioral disturbance, severe: Status: Acute Code(s): F02.C18 - Dementia in other diseases classified elsewhere, severe, with other behavioral disturbance (3) Graves disease: Status: Acute Code(s): E05.00 - Thyrotoxicosis with diffuse goiter without thyrotoxic crisis or storm Plan Mrs. Martinez is a 70 year-old woman who was initially brought to [facility] due to weakness, profound lethargy and inability to care for herself. While in the ED, pt presented as agitated, combative and reported SI. Daughter reports pt has been struggling to care for herself (house without hot water, in condemnable condition and pt has not showered in several months). Pt is not able to recall events leading to this admission, despite the fact that she is oriented to month, year and place. We discussed risks, benefits and alternative treatment options. Will lower dose of xanax as pt this morning was more somnolent and lethargic although she had not received xanax. Lowered to 0.5mg po TID. continue effexor er 75mg po daily. Pt noted to have BP elevated but this was one point of care- will continue to monitor. No signs of benzo withdrawal. Pending MOCA/ACL. Will also check B12 (note that although no anemia, MCV was high). Repeat of CMP shows some degree of dehydration (elevated BUN from 14 to 23)- encourage fluids. PLAN 04/04 LFTs trending up, GI following, denies any abdominal pain, no vomiting, afebrile. pt confused as to why she is here, somewhat suspicious about her children wanting to leave her here. Will hold on starting medications until LFTs and bilirubin normalizes. Pending US of gallbladder today. 04/05 pt forgetful from day to day, confabulation with often seems more like blaming her children for doing things behind her back and thinks they are lying when designer writer explains concern in terms of memory/cog impairments. 04/06 LFTs trending down. Will start abilify for mood/suspiciousness. 04/08 continue tx. 04/09: Continue current regimen and plans. Trial of Fioricet b.i.d. PRN 04/11 increase abilify for mood. reading of MRI with neuroquant- still pending. CAUTION WITH ACETAMINOPHEN AND LFTS. ALSO CAUTION WITH NSAID- not H&H down since admission. She was started on Tapazole 10mg po daily for graves disease- newly dx here. HIDA scan for abdominal pain not completed due to pt declining- may need to reorder if pt presents with abdominal pain or again LFTs elevation. 04/12: stable, demented. asking about discharge home when awaiting placement. MRI c neuroquant pending. stable presentation. continue current mgmt for now. 04/13: poor sleep due to disruptive peer. resting today. no request for discharge. no behavioral issues. continue current mgmt. 04/14: slept 5 hours. somewhat hypomanic today, circumstantial and moderately disorganized. agreeable to stay for the time being, per SW. increase abilify to 15 mg daily for mood stability. call placed to radiology for read on MRI brain done 04/05/25. 04/15: head MRI read remains absent. stable presentation. resting today, not activated or irritable. continue current mgmt. 04/16: stable presentation. remains a bit more organized and less labile than prior, since increase in abilify dosing. also a bit more tired. T/C moving abilify to HS to prevent daytime sedation. 04/17: lying in bed, calm. does not mention agitation around midnight last night. no complaints or requests. continue current mgmt. continues more organized and less labile. 04/18: MRI brain c/w AD and vascular dementia. start donepezil. remains less labile and irritable since abilify dosing increase. awaiting placement. continue current mgmt. 04/19: appears to be endorsing AH and expressing paranoia re staff today. increase abilify once again, this time with added dose in the evening. otherwise continue current mgmt. 04/20/25: Patient slept for 8 hours, was medication compliant. Denied side effects. However per nursing staff, patient was struggle with taking medication last night. She has sundown symptoms, more irritable in the afternoon and evening. During conversation with this provider, patient reports that she feel irritable but denies anxiety or depression. She said medications do not do anything good. Sucks being in here. Then she is more irritable when we asked about safety concern questions. it Is a bunch of bullshit, I am done talking . However she continued engaged in conversation when this provider review with her regarding Abilify scheduled time of the afternoon dose. She is working on menu at the same time. Per nursing, patient struggle with taking Abilify in the afternoon yesterday, after he she has sundown symptoms. Therefore I will change to 1600 so nursing staff can offer her at around 3 PM. Does not make any paranoid statements. 04/20: tired, resting in the morning. no paranoid delusions expressed. court paperwork completed for affirming HCP. continue current mgmt. 04/22: as for yesterday. reportedly c/o chills, shivering overnight, denies today. afebrile. continue current mgmt. 04/23: continue current tx 04/24: continue current tx 04/25: stable, continue current mgmt. 04/26: no change in presentation. HCP affirmation hearing tomorrow. continue current mgmt. 04/27: no change in presentation. HCP affirmation hearing today. continue current mgmt. 04/28 continue current medications. 04/29 continue tx. 04/30: continue current management and treatment plan. 05/01: continue current management and treatment plan. 05/02: Continue current management and treatment plan. 05/03 continue tx. 05/04 continue tx 05/05 continue tx. 05/06 continue tx. 05/09 continue tx. 05/10 continue tx. 05/11 continue tx. monitor HR. 05/12 continue tx. 05/13 continue tx. monitor HR, expecting some improvement with d/c of aricept, reduction of methimazole. 05/14: continue 05/15: continue 05/16 continue tx. HR better. no bradicardia 05/17 continue tx. 05/18 cnotinue tx. 05/19 continue tx 05/20 continue tx. awaiting placement. 05/21 stable; no issues; ctp Patient educated on: diagnosis and therapeutic strategies Informed Consent: understands Reason for continued inpatient stay Substantial Risk for: stable for discharge Time Spent With Patient Time: Total time managing care of this patient today ____ minutes.
[2025-05-21 20:00] VITALS: BP 99/53; PULSE 62; RESP 16; TEMP 36.2; O2SAT 96
[2025-05-22 08:00] VITALS: BP 103/65; PULSE 60; RESP 16; TEMP 35.4; O2SAT 95
--- NOTE | 2025-05-22 16:52 | HO.PSYCHPN ---
Subjective Subjective Date of Service: 05/22/25 Reason For Visit: Bradycardia Interim History: Met with patient; discussed with team reports good mood; again talking about dc to daughters; out and about in [place] Mental Status Exam Mental Status Exam Narrative: Appearance: casual attire; appropriate , in NAD Behavior: superficially cooperative; isolative Psychomotor: no psychomotor retardation Speech: mostly clear, normal rate/rhythm/volume, spontaneous TP: Goal directed; can be circumstantial TC: feeling good and resting. Mood: good Affect: congruent SI: denies HI: denies VH/AH: no signs Delusions: no overt delusional content but noted confabulation. Insight/judgment: impaired x 2. memory/cog: alert, oriented to place, month and year but not to situation. Significant difficulty remembering events that led to this admission. [facility] Diagn[facility] Vital Signs (24Hr): Vital Signs - 24 hr 05/21/25 20:00 05/22/25 08:00 Temperature 97.1 F 95.7 F L Pulse Rate 62 60 Respiratory Rate 16 16 Blood Pressure 99/53 L 103/65 Pulse Oximetry 96 95 Oxygen Delivery Method Room Air Room Air BMI result Body Mass Index 18.1 Labs 05/13/25 10:05 05/18/25 10:15 Imaging Radiology Impressions: ITS Impressions Thyroid Ultrasound 04/03/25 11:58 IMPRESSION: Heterogeneous hypervascular thyroid gland. No discrete nodules are identified. ACR TI-RADS Guidelines TR1 (0 points): Benign. No follow-up or biopsy required TR2 (2 points): Not Suspicious. No biopsy or follow up indicated TR3 (3 points): Mildly Suspicious. FNA if >= 2.5 cm, Follow if >= 1.5 cm TR4 (4-6 points): Moderately Suspicious. FNA if >= 1.5 cm, Follow if >= 1.0 cm TR5 (>=7 points): Highly Suspicious. FNA if >= 1.0 cm, Follow if >= 0.5 cm Electronically signed by: García Young MD 04/04/2025 07:08 AM EDT Abdomen X-Ray 04/05/25 11:25 IMPRESSION: No radiopaque foreign body is identified. Electronically signed by: García Young MD 04/05/2025 11:45 AM EDT RP Chest X-Ray 04/05/25 11:25 IMPRESSION: Clear lungs. No radiopaque foreign body is identified. Electronically signed by: García Young MD 04/05/2025 11:46 AM EDT RP Skull X-Ray 04/05/25 11:25 IMPRESSION: No radiopaque foreign body is identified. Electronically signed by: García Young MD 04/05/2025 11:47 AM EDT RP Brain MRI 04/05/25 11:38 IMPRESSION: 1. No evidence of intracranial hemorrhage, acute infarction, mass effect, or edema. 2. Age advanced cerebral and cerebellar volume loss. Please refer to the above, and the full neuroquantitative report included with the examination. 3. Moderate to severe changes of small vessel ischemia. 4. Crib d'etat appearance of the basal ganglia suggestive of sequela of chronic hypertension. Electronically signed by: Ruddy Moreau MD 04/18/2025 08:28 AM EDT RP Medications Medications Current Medications Acetaminophen (Acetaminophen 325 Mg Tablet) 650 mg PO Q6H PRN PRN Reason: Pain 1-10 or headache Last Admin: 05/22/25 12:33 Dose: 650 mg Acetaminophen/Butalbital/Caffeine (Butalb/Acetamin/Caff 50/325/40 Tablet) 1 tab PO BID PRN PRN Reason: Pain, Moderate(Pain Scale 4-6) Last Admin: 05/21/25 12:04 Dose: 1 tab Al Hydroxide/Mg Hydroxide (Magnesium Hydrox/Alum Hydrox 30 Ml Oral.Susp) 30 ml PO Q6H PRN PRN Reason: Heartburn/Nausea Amlodipine Besylate (Amlodipine Besylate 5 Mg Tablet) 5 mg PO DAILY [facility]; Protocol Last Admin: 05/22/25 08:23 Dose: 5 mg Aripiprazole (Aripiprazole 15 Mg Tablet) 15 mg PO DAILY [facility] Last Admin: 05/22/25 08:23 Dose: 15 mg Aripiprazole (Aripiprazole 5 Mg Tablet) 5 mg PO DAILY@1600 [facility] Last Admin: 05/21/25 15:48 Dose: 5 mg Atorvastatin Calcium (Atorvastatin Calcium 80 Mg Tablet) 80 mg PO DAILY [facility] Last Admin: 05/22/25 08:23 Dose: 80 mg Magnesium Hydroxide (Milk Of Magnesia 30 Ml Oral.Susp) 30 ml PO DAILY PRN PRN Reason: Constipation Methimazole (Methimazole 5 Mg Tablet) 5 mg PO DAILY [facility] Last Admin: 05/22/25 08:23 Dose: 5 mg Mirtazapine (Mirtazapine 15 Mg Tablet) 15 mg PO BEDTIME [facility] Last Admin: 05/21/25 20:21 Dose: 15 mg Nicotine Polacrilex (Nicotine Polacrilex 2 Mg Gum) 4 mg BUCCAL Q2H PRN PRN Reason: Nicotine Cravings Olanzapine (Olanzapine 5 Mg Tablet) 5 mg PO TID PRN PRN Reason: agitation Last Admin: 05/02/25 15:15 Dose: 5 mg Omeprazole (Omeprazole 20 Mg Capsule.Dr) 20 mg PO DAILY@0630 [facility] Last Admin: 05/22/25 06:40 Dose: 20 mg Spironolactone (Spironolactone 25 Mg Tablet) 25 mg PO DAILY [facility]; Protocol Last Admin: 05/22/25 08:23 Dose: 25 mg Trazodone HCl (Trazodone Hcl 25 Mg Halftab) 25 mg PO BEDTIME MRX1 PRN PRN Reason: Insomnia Last Admin: 04/26/25 21:20 Dose: 25 mg Allergies Allergies Allergy/AdvReac Type Severity Reaction Status Date / Time codeine Allergy Intermediate hives Verified 03/28/25 21:43 NSAIDS (Non-Steroidal AdvReac Severe gi bleed Verified 04/05/25 10:40 Anti-Inflamma Assessment & Plan Assessment & Plan (1) MDD (major depressive disorder), recurrent episode, moderate: Status: Acute Code(s): F33.1 - Major depressive disorder, recurrent, moderate (2) Major neurocognitive disorder, due to another medical condition, with behavioral disturbance, severe: Status: Acute Code(s): F02.C18 - Dementia in other diseases classified elsewhere, severe, with other behavioral disturbance (3) Graves disease: Status: Acute Code(s): E05.00 - Thyrotoxicosis with diffuse goiter without thyrotoxic crisis or storm Plan Mrs. Martinez is a 70 year-old woman who was initially brought to [facility] due to weakness, profound lethargy and inability to care for herself. While in the ED, pt presented as agitated, combative and reported SI. Daughter reports pt has been struggling to care for herself (house without hot water, in condemnable condition and pt has not showered in several months). Pt is not able to recall events leading to this admission, despite the fact that she is oriented to month, year and place. We discussed risks, benefits and alternative treatment options. Will lower dose of xanax as pt this morning was more somnolent and lethargic although she had not received xanax. Lowered to 0.5mg po TID. continue effexor er 75mg po daily. Pt noted to have BP elevated but this was one point of care- will continue to monitor. No signs of benzo withdrawal. Pending MOCA/ACL. Will also check B12 (note that although no anemia, MCV was high). Repeat of CMP shows some degree of dehydration (elevated BUN from 14 to 23)- encourage fluids. PLAN 04/04 LFTs trending up, GI following, denies any abdominal pain, no vomiting, afebrile. pt confused as to why she is here, somewhat suspicious about her children wanting to leave her here. Will hold on starting medications until LFTs and bilirubin normalizes. Pending US of gallbladder today. 04/05 pt forgetful from day to day, confabulation with often seems more like blaming her children for doing things behind her back and thinks they are lying when teletypewriter installer explains concern in terms of memory/cog impairments. 04/06 LFTs trending down. Will start abilify for mood/suspiciousness. 04/08 continue tx. 04/09: Continue current regimen and plans. Trial of Fioricet b.i.d. PRN 04/11 increase abilify for mood. reading of MRI with neuroquant- still pending. CAUTION WITH ACETAMINOPHEN AND LFTS. ALSO CAUTION WITH NSAID- not H&H down since admission. She was started on Tapazole 10mg po daily for graves disease- newly dx here. HIDA scan for abdominal pain not completed due to pt declining- may need to reorder if pt presents with abdominal pain or again LFTs elevation. 04/12: stable, demented. asking about discharge home when awaiting placement. MRI c neuroquant pending. stable presentation. continue current mgmt for now. 04/13: poor sleep due to disruptive peer. resting today. no request for discharge. no behavioral issues. continue current mgmt. 04/14: slept 5 hours. somewhat hypomanic today, circumstantial and moderately disorganized. agreeable to stay for the time being, per SW. increase abilify to 15 mg daily for mood stability. call placed to radiology for read on MRI brain done 04/05/25. 04/15: head MRI read remains absent. stable presentation. resting today, not activated or irritable. continue current mgmt. 04/16: stable presentation. remains a bit more organized and less labile than prior, since increase in abilify dosing. also a bit more tired. T/C moving abilify to HS to prevent daytime sedation. 04/17: lying in bed, calm. does not mention agitation around midnight last night. no complaints or requests. continue current mgmt. continues more organized and less labile. 04/18: MRI brain c/w AD and vascular dementia. start donepezil. remains less labile and irritable since abilify dosing increase. awaiting placement. continue current mgmt. 04/19: appears to be endorsing AH and expressing paranoia re staff today. increase abilify once again, this time with added dose in the evening. otherwise continue current mgmt. 04/20/25: Patient slept for 8 hours, was medication compliant. Denied side effects. However per nursing staff, patient was struggle with taking medication last night. She has sundown symptoms, more irritable in the afternoon and evening. During conversation with this provider, patient reports that she feel irritable but denies anxiety or depression. She said medications do not do anything good. Sucks being in here. Then she is more irritable when we asked about safety concern questions. it Is a bunch of bullshit, I am done talking . However she continued engaged in conversation when this provider review with her regarding Abilify scheduled time of the afternoon dose. She is working on menu at the same time. Per nursing, patient struggle with taking Abilify in the afternoon yesterday, after he she has sundown symptoms. Therefore I will change to 1600 so nursing staff can offer her at around 3 PM. Does not make any paranoid statements. 04/20: tired, resting in the morning. no paranoid delusions expressed. court paperwork completed for affirming HCP. continue current mgmt. 04/22: as for yesterday. reportedly c/o chills, shivering overnight, denies today. afebrile. continue current mgmt. 04/23: continue current tx 04/24: continue current tx 04/25: stable, continue current mgmt. 04/26: no change in presentation. HCP affirmation hearing tomorrow. continue current mgmt. 04/27: no change in presentation. HCP affirmation hearing today. continue current mgmt. 04/28 continue current medications. 04/29 continue tx. 04/30: continue current management and treatment plan. 05/01: continue current management and treatment plan. 05/02: Continue current management and treatment plan. 05/03 continue tx. 05/04 continue tx 05/05 continue tx. 05/06 continue tx. 05/09 continue tx. 05/10 continue tx. 05/11 continue tx. monitor HR. 05/12 continue tx. 05/13 continue tx. monitor HR, expecting some improvement with d/c of aricept, reduction of methimazole. 05/14: continue 05/15: continue 05/16 continue tx. HR better. no bradicardia 05/17 continue tx. 05/18 cnotinue tx. 05/19 continue tx 05/20 continue tx. awaiting placement. 05/21 stable; no issues; ctp Reason for continued inpatient stay Substantial Risk for: stable for discharge Time Spent With Patient Time: Total time managing care of this patient today ____ minutes.
[2025-05-22 20:00] VITALS: BP 114/55; PULSE 60; RESP 16; TEMP 36; O2SAT 97
[2025-05-23 07:55] VITALS: BP 120/68; PULSE 62; RESP 18; TEMP 36.8; O2SAT 96
--- NOTE | 2025-05-23 08:42 | HO.PSYCHPN ---
Subjective Subjective Date of Service: 05/23/25 Reason For Visit: Bradycardia Interim History: Less episodes of bradycardia, VS stable. Pt slept through the night. She denies any physical concerns. She is taking medications as prescribed. She is pleasant, and with brighter affect. She does like to stay in her room. Visible at times. No SI/HI. No psychosis or delusions. Review of Systems Review of Systems Denies any shortness of breath, chest pain, dizziness, lightheadedness, abdominal pain or discomfort, nausea vomiting or diarrhea Yes all other systems are reviewed and are negative Mental Status Exam Mental Status Exam Narrative: Appearance: casual attire; appropriate , in NAD Behavior: superficially cooperative; isolative Psychomotor: no psychomotor retardation Speech: mostly clear, normal rate/rhythm/volume, spontaneous TP: Goal directed; can be circumstantial TC: feeling good and resting. Mood: good Affect: congruent SI: denies HI: denies VH/AH: no signs Delusions: no overt delusional content but noted confabulation. Insight/judgment: impaired x 2. memory/cog: alert, oriented to place, month and year but not to situation. Significant difficulty remembering events that led to this admission. [facility] Diagnostics Vital Signs (24Hr): Vital Signs - 24 hr 05/22/25 20:00 Temperature 96.8 F Pulse Rate 60 Respiratory Rate 16 Blood Pressure 114/55 L Pulse Oximetry 97 Oxygen Delivery Method Room Air BMI result Body Mass Index 18.1 Labs 05/13/25 10:05 05/18/25 10:15 Imaging Radiology Impressions: ITS Impressions Thyroid Ultrasound 04/03/25 11:58 IMPRESSION: Heterogeneous hypervascular thyroid gland. No discrete nodules are identified. ACR TI-RADS Guidelines TR1 (0 points): Benign. No follow-up or biopsy required TR2 (2 points): Not Suspicious. No biopsy or follow up indicated TR3 (3 points): Mildly Suspicious. FNA if >= 2.5 cm, Follow if >= 1.5 cm TR4 (4-6 points): Moderately Suspicious. FNA if >= 1.5 cm, Follow if >= 1.0 cm TR5 (>=7 points): Highly Suspicious. FNA if >= 1.0 cm, Follow if >= 0.5 cm Electronically signed by: García Young MD 04/04/2025 07:08 AM EDT RP Abdomen X-Ray 04/05/25 11:25 IMPRESSION: No radiopaque foreign body is identified. Electronically signed by: García Young MD 04/05/2025 11:45 AM EDT RP Chest X-Ray 04/05/25 11:25 IMPRESSION: Clear lungs. No radiopaque foreign body is identified. Electronically signed by: García Young MD 04/05/2025 11:46 AM EDT RP Skull X-Ray 04/05/25 11:25 IMPRESSION: No radiopaque foreign body is identified. Electronically signed by: García Young MD 04/05/2025 11:47 AM EDT RP Brain MRI 04/05/25 11:38 IMPRESSION: 1. No evidence of intracranial hemorrhage, acute infarction, mass effect, or edema. 2. Age advanced cerebral and cerebellar volume loss. Please refer to the above, and the full neuroquantitative report included with the examination. 3. Moderate to severe changes of small vessel ischemia. 4. Crib d'etat appearance of the basal ganglia suggestive of sequela of chronic hypertension. Electronically signed by: Ruddy Moreau MD 04/18/2025 08:28 AM EDT RP Medications Medications Current Medications Acetaminophen (Acetaminophen 325 Mg Tablet) 650 mg PO Q6H PRN PRN Reason: Pain 1-10 or headache Last Admin: 05/22/25 20:07 Dose: 650 mg Acetaminophen/Butalbital/Caffeine (Butalb/Acetamin/Caff 50/325/40 Tablet) 1 tab PO BID PRN PRN Reason: Pain, Moderate(Pain Scale 4-6) Last Admin: 05/21/25 12:04 Dose: 1 tab Al Hydroxide/Mg Hydroxide (Magnesium Hydrox/Alum Hydrox 30 Ml Oral.Susp) 30 ml PO Q6H PRN PRN Reason: Heartburn/Nausea Amlodipine Besylate (Amlodipine Besylate 5 Mg Tablet) 5 mg PO DAILY [facility]; Protocol Last Admin: 05/23/25 08:08 Dose: 5 mg Aripiprazole (Aripiprazole 15 Mg Tablet) 15 mg PO DAILY [facility] Last Admin: 05/23/25 08:09 Dose: 15 mg Aripiprazole (Aripiprazole 5 Mg Tablet) 5 mg PO DAILY@1600 [facility] Last Admin: 05/22/25 17:17 Dose: 5 mg Atorvastatin Calcium (Atorvastatin Calcium 80 Mg Tablet) 80 mg PO DAILY [facility] Last Admin: 05/23/25 08:08 Dose: 80 mg Magnesium Hydroxide (Milk Of Magnesia 30 Ml Oral.Susp) 30 ml PO DAILY PRN PRN Reason: Constipation Methimazole (Methimazole 5 Mg Tablet) 5 mg PO DAILY [facility] Last Admin: 05/23/25 08:09 Dose: 5 mg Mirtazapine (Mirtazapine 15 Mg Tablet) 15 mg PO BEDTIME [facility] Last Admin: 05/22/25 20:02 Dose: 15 mg Nicotine Polacrilex (Nicotine Polacrilex 2 Mg Gum) 4 mg BUCCAL Q2H PRN PRN Reason: Nicotine Cravings Olanzapine (Olanzapine 5 Mg Tablet) 5 mg PO TID PRN PRN Reason: agitation Last Admin: 05/02/25 15:15 Dose: 5 mg Omeprazole (Omeprazole 20 Mg Capsule.Dr) 20 mg PO DAILY@0630 [facility] Last Admin: 05/23/25 06:41 Dose: 20 mg Spironolactone (Spironolactone 25 Mg Tablet) 25 mg PO DAILY [facility]; Protocol Last Admin: 05/23/25 08:09 Dose: 25 mg Trazodone HCl (Trazodone Hcl 25 Mg Halftab) 25 mg PO BEDTIME MRX1 PRN PRN Reason: Insomnia Last Admin: 04/26/25 21:20 Dose: 25 mg Allergies Allergies Allergy/AdvReac Type Severity Reaction Status Date / Time codeine Allergy Intermediate hives Verified 03/28/25 21:43 NSAIDS (Non-Steroidal AdvReac Severe gi bleed Verified 04/05/25 10:40 Anti-Inflamma Assessment & Plan Assessment & Plan (1) MDD (major depressive disorder), recurrent episode, moderate: Status: Acute Code(s): F33.1 - Major depressive disorder, recurrent, moderate (2) Major neurocognitive disorder, due to another medical condition, with behavioral disturbance, severe: Status: Acute Code(s): F02.C18 - Dementia in other diseases classified elsewhere, severe, with other behavioral disturbance (3) Graves disease: Status: Acute Code(s): E05.00 - Thyrotoxicosis with diffuse goiter without thyrotoxic crisis or storm Plan Mrs. Martinez is a 70 year-old woman who was initially brought to [facility] due to weakness, profound lethargy and inability to care for herself. While in the ED, pt presented as agitated, combative and reported SI. Daughter reports pt has been struggling to care for herself (house without hot water, in condemnable condition and pt has not showered in several months). Pt is not able to recall events leading to this admission, despite the fact that she is oriented to month, year and place. We discussed risks, benefits and alternative treatment options. Will lower dose of xanax as pt this morning was more somnolent and lethargic although she had not received xanax. Lowered to 0.5mg po TID. continue effexor er 75mg po daily. Pt noted to have BP elevated but this was one point of care- will continue to monitor. No signs of benzo withdrawal. Pending MOCA/ACL. Will also check B12 (note that although no anemia, MCV was high). Repeat of CMP shows some degree of dehydration (elevated BUN from 14 to 23)- encourage fluids. PLAN 04/04 LFTs trending up, GI following, denies any abdominal pain, no vomiting, afebrile. pt confused as to why she is here, somewhat suspicious about her children wanting to leave her here. Will hold on starting medications until LFTs and bilirubin normalizes. Pending US of gallbladder today. 04/05 pt forgetful from day to day, confabulation with often seems more like blaming her children for doing things behind her back and thinks they are lying when writer editor explains concern in terms of memory/cog impairments. 04/06 LFTs trending down. Will start abilify for mood/suspiciousness. 04/08 continue tx. 04/09: Continue current regimen and plans. Trial of Fioricet b.i.d. PRN 04/11 increase abilify for mood. reading of MRI with neuroquant- still pending. CAUTION WITH ACETAMINOPHEN AND LFTS. ALSO CAUTION WITH NSAID- not H&H down since admission. She was started on Tapazole 10mg po daily for graves disease- newly dx here. HIDA scan for abdominal pain not completed due to pt declining- may need to reorder if pt presents with abdominal pain or again LFTs elevation. 04/12: stable, demented. asking about discharge home when awaiting placement. MRI c neuroquant pending. stable presentation. continue current mgmt for now. 04/13: poor sleep due to disruptive peer. resting today. no request for discharge. no behavioral issues. continue current mgmt. 04/14: slept 5 hours. somewhat hypomanic today, circumstantial and moderately disorganized. agreeable to stay for the time being, per SW. increase abilify to 15 mg daily for mood stability. call placed to radiology for read on MRI brain done 04/05/25. 04/15: head MRI read remains absent. stable presentation. resting today, not activated or irritable. continue current mgmt. 04/16: stable presentation. remains a bit more organized and less labile than prior, since increase in abilify dosing. also a bit more tired. T/C moving abilify to HS to prevent daytime sedation. 04/17: lying in bed, calm. does not mention agitation around midnight last night. no complaints or requests. continue current mgmt. continues more organized and less labile. 04/18: MRI brain c/w AD and vascular dementia. start donepezil. remains less labile and irritable since abilify dosing increase. awaiting placement. continue current mgmt. 04/19: appears to be endorsing AH and expressing paranoia re staff today. increase abilify once again, this time with added dose in the evening. otherwise continue current mgmt. 04/20/25: Patient slept for 8 hours, was medication compliant. Denied side effects. However per nursing staff, patient was struggle with taking medication last night. She has sundown symptoms, more irritable in the afternoon and evening. During conversation with this provider, patient reports that she feel irritable but denies anxiety or depression. She said medications do not do anything good. Sucks being in here. Then she is more irritable when we asked about safety concern questions. it Is a bunch of bullshit, I am done talking . However she continued engaged in conversation when this provider review with her regarding Abilify scheduled time of the afternoon dose. She is working on menu at the same time. Per nursing, patient struggle with taking Abilify in the afternoon yesterday, after he she has sundown symptoms. Therefore I will change to 1600 so nursing staff can offer her at around 3 PM. Does not make any paranoid statements. 04/20: tired, resting in the morning. no paranoid delusions expressed. court paperwork completed for affirming HCP. continue current mgmt. 04/22: as for yesterday. reportedly c/o chills, shivering overnight, denies today. afebrile. continue current mgmt. 04/23: continue current tx 04/24: continue current tx 04/25: stable, continue current mgmt. 04/26: no change in presentation. HCP affirmation hearing tomorrow. continue current mgmt. 04/27: no change in presentation. HCP affirmation hearing today. continue current mgmt. 04/28 continue current medications. 04/29 continue tx. 04/30: continue current management and treatment plan. 05/01: continue current management and treatment plan. 05/02: Continue current management and treatment plan. 05/03 continue tx. 05/04 continue tx 05/05 continue tx. 05/06 continue tx. 05/09 continue tx. 05/10 continue tx. 05/11 continue tx. monitor HR. 05/12 continue tx. 05/13 continue tx. monitor HR, expecting some improvement with d/c of aricept, reduction of methimazole. 05/14: continue 05/15: continue 05/16 continue tx. HR better. no bradicardia 05/17 continue tx. 05/18 cnotinue tx. 05/19 continue tx 05/20 continue tx. awaiting placement. 05/21 stable; no issues; ctp 05/23 less episodes of bradycardia. No physical concerns. Sleeping and eating . no psychosis or delusions. continue tx. awaiting placement. Reason for continued inpatient stay Substantial Risk for: inability to function Time Spent With Patient Time: Total time managing care of this patient today ____ minutes.
[2025-05-23] MEDS: Butalb/Acetamin/Caff 50/325/40 TABLET 1 TAB PO (18:41)
[2025-05-23 20:00] VITALS: BP 96/52; PULSE 52; RESP 16; TEMP 36.2; O2SAT 97
[2025-05-24 08:00] VITALS: BP 109/59; PULSE 60; RESP 16; TEMP 36.8; O2SAT 94
--- NOTE | 2025-05-24 08:54 | P.PNPSI_ITS ---
Subjective Subjective Date of Service: 05/24/25 Reason For Visit: Bradycardia Interim History: Less episodes of bradycardia, VS stable. Pt slept through the night. She denies any physical concerns. She is taking medications as prescribed. She is pleasant, and with brighter affect. She does like to stay in her room. Visible at times. No SI/HI. No psychosis or delusions. Review of Systems Review of Systems Denies any shortness of breath, chest pain, dizziness, lightheadedness, abdominal pain or discomfort, nausea vomiting or diarrhea Yes all other systems are reviewed and are negative Mental Status Exam Mental Status Exam Narrative: Appearance: casual attire; appropriate , in NAD Behavior: superficially cooperative; isolative Psychomotor: no psychomotor retardation Speech: mostly clear, normal rate/rhythm/volume, spontaneous TP: Goal directed; can be circumstantial TC: feeling good and resting. Mood: good Affect: congruent SI: denies HI: denies VH/AH: no signs Delusions: no overt delusional content but noted confabulation. Insight/judgment: impaired x 2. memory/cog: alert, oriented to place, month and year but not to situation. Significant difficulty remembering events that led to this admission. [facility] Vital Signs (24Hr): Vital Signs - 24 hr 05/23/25 20:00 05/24/25 08:00 Temperature 97.1 F 98.2 F Pulse Rate 52 60 Respiratory Rate 16 16 Blood Pressure 96/52 L 109/59 L Pulse Oximetry 97 94 Oxygen Delivery Method Room Air Room Air BMI result Body Mass Index 18.1 Labs 05/13/25 10:05 05/18/25 10:15 Imaging Radiology Impressions: ITS Impressions Thyroid Ultrasound 04/03/25 11:58 IMPRESSION: Heterogeneous hypervascular thyroid gland. No discrete nodules are identified. ACR TI-RADS Guidelines TR1 (0 points): Benign. No follow-up or biopsy required TR2 (2 points): Not Suspicious. No biopsy or follow up indicated TR3 (3 points): Mildly Suspicious. FNA if >= 2.5 cm, Follow if >= 1.5 cm TR4 (4-6 points): Moderately Suspicious. FNA if >= 1.5 cm, Follow if >= 1.0 cm TR5 (>=7 points): Highly Suspicious. FNA if >= 1.0 cm, Follow if >= 0.5 cm Electronically signed by: García Young MD 04/04/2025 07:08 AM EDT RP Abdomen X-Ray 04/05/25 11:25 IMPRESSION: No radiopaque foreign body is identified. Electronically signed by: García Young MD 04/05/2025 11:45 AM EDT RP Chest X-Ray 04/05/25 11:25 IMPRESSION: Clear lungs. No radiopaque foreign body is identified. Electronically signed by: García Young MD 04/05/2025 11:46 AM EDT RP Skull X-Ray 04/05/25 11:25 IMPRESSION: No radiopaque foreign body is identified. Electronically signed by: García Young MD 04/05/2025 11:47 AM EDT RP Brain MRI 04/05/25 11:38 IMPRESSION: 1. No evidence of intracranial hemorrhage, acute infarction, mass effect, or edema. 2. Age advanced cerebral and cerebellar volume loss. Please refer to the above, and the full neuroquantitative report included with the examination. 3. Moderate to severe changes of small vessel ischemia. 4. Crib d'etat appearance of the basal ganglia suggestive of sequela of chronic hypertension. Electronically signed by: Ruddy Moreau MD 04/18/2025 08:28 AM EDT RP Medications Medications Current Medications Acetaminophen (Acetaminophen 325 Mg Tablet) 650 mg PO Q6H PRN PRN Reason: Pain 1-10 or headache Last Admin: 05/23/25 10:56 Dose: 650 mg Acetaminophen/Butalbital/Caffeine (Butalb/Acetamin/Caff 50/325/40 Tablet) 1 tab PO BID PRN PRN Reason: Pain, Moderate(Pain Scale 4-6) Last Admin: 05/23/25 18:41 Dose: 1 tab Al Hydroxide/Mg Hydroxide (Magnesium Hydrox/Alum Hydrox 30 Ml Oral.Susp) 30 ml PO Q6H PRN PRN Reason: Heartburn/Nausea Amlodipine Besylate (Amlodipine Besylate 5 Mg Tablet) 5 mg PO DAILY [facility]; Protocol Last Admin: 05/24/25 08:16 Dose: 5 mg Aripiprazole (Aripiprazole 15 Mg Tablet) 15 mg PO DAILY [facility] Last Admin: 05/24/25 08:17 Dose: 15 mg Aripiprazole (Aripiprazole 5 Mg Tablet) 5 mg PO DAILY@1600 [facility] Last Admin: 05/23/25 16:31 Dose: 5 mg Atorvastatin Calcium (Atorvastatin Calcium 80 Mg Tablet) 80 mg PO DAILY [facility] Last Admin: 05/24/25 08:17 Dose: 80 mg Magnesium Hydroxide (Milk Of Magnesia 30 Ml Oral.Susp) 30 ml PO DAILY PRN PRN Reason: Constipation Methimazole (Methimazole 5 Mg Tablet) 5 mg PO DAILY [facility] Last Admin: 05/24/25 08:17 Dose: 5 mg Mirtazapine (Mirtazapine 15 Mg Tablet) 15 mg PO BEDTIME [facility] Last Admin: 05/23/25 20:14 Dose: 15 mg Nicotine Polacrilex (Nicotine Polacrilex 2 Mg Gum) 4 mg BUCCAL Q2H PRN PRN Reason: Nicotine Cravings Olanzapine (Olanzapine 5 Mg Tablet) 5 mg PO TID PRN PRN Reason: agitation Last Admin: 05/02/25 15:15 Dose: 5 mg Omeprazole (Omeprazole 20 Mg Capsule.Dr) 20 mg PO DAILY@0630 [facility] Last Admin: 05/24/25 06:24 Dose: 20 mg Spironolactone (Spironolactone 25 Mg Tablet) 25 mg PO DAILY [facility]; Protocol Last Admin: 05/24/25 08:17 Dose: 25 mg Trazodone HCl (Trazodone Hcl 25 Mg Halftab) 25 mg PO BEDTIME MRX1 PRN PRN Reason: Insomnia Last Admin: 04/26/25 21:20 Dose: 25 mg Allergies Allergies Allergy/AdvReac Type Severity Reaction Status Date / Time codeine Allergy Intermediate hives Verified 03/28/25 21:43 NSAIDS (Non-Steroidal AdvReac Severe gi bleed Verified 04/05/25 10:40 Anti-Inflamma Assessment & Plan Assessment & Plan (1) MDD (major depressive disorder), recurrent episode, moderate: Status: Acute Code(s): F33.1 - Major depressive disorder, recurrent, moderate (2) Major neurocognitive disorder, due to another medical condition, with behavioral disturbance, severe: Status: Acute Code(s): F02.C18 - Dementia in other diseases classified elsewhere, severe, with other behavioral disturbance (3) Graves disease: Status: Acute Code(s): E05.00 - Thyrotoxicosis with diffuse goiter without thyrotoxic crisis or storm Plan Mrs. Martinez is a 70 year-old woman who was initially brought to [facility] due to weakness, profound lethargy and inability to care for herself. While in the ED, pt presented as agitated, combative and reported SI. Daughter reports pt has been struggling to care for herself (house without hot water, in condemnable condition and pt has not showered in several months). Pt is not able to recall events leading to this admission, despite the fact that she is oriented to month, year and place. We discussed risks, benefits and alternative treatment options. Will lower dose of xanax as pt this morning was more somnolent and lethargic although she had not received xanax. Lowered to 0.5mg po TID. continue effexor er 75mg po daily. Pt noted to have BP elevated but this was one point of care- will continue to monitor. No signs of benzo withdrawal. Pending MOCA/ACL. Will also check B12 (note that although no anemia, MCV was high). Repeat of CMP shows some degree of dehydration (elevated BUN from 14 to 23)- encourage fluids. PLAN 04/04 LFTs trending up, GI following, denies any abdominal pain, no vomiting, afebrile. pt confused as to why she is here, somewhat suspicious about her children wanting to leave her here. Will hold on starting medications until LFTs and bilirubin normalizes. Pending US of gallbladder today. 04/05 pt forgetful from day to day, confabulation with often seems more like blaming her children for doing things behind her back and thinks they are lying when medical writer explains concern in terms of memory/cog impairments. 04/06 LFTs trending down. Will start abilify for mood/suspiciousness. 04/08 continue tx. 04/09: Continue current regimen and plans. Trial of Fioricet b.i.d. PRN 04/11 increase abilify for mood. reading of MRI with neuroquant- still pending. CAUTION WITH ACETAMINOPHEN AND LFTS. ALSO CAUTION WITH NSAID- not H&H down since admission. She was started on Tapazole 10mg po daily for graves disease- newly dx here. HIDA scan for abdominal pain not completed due to pt declining- may need to reorder if pt presents with abdominal pain or again LFTs elevation. 04/12: stable, demented. asking about discharge home when awaiting placement. MRI c neuroquant pending. stable presentation. continue current mgmt for now. 04/13: poor sleep due to disruptive peer. resting today. no request for discharge. no behavioral issues. continue current mgmt. 04/14: slept 5 hours. somewhat hypomanic today, circumstantial and moderately disorganized. agreeable to stay for the time being, per SW. increase abilify to 15 mg daily for mood stability. call placed to radiology for read on MRI brain done 04/05/25. 04/15: head MRI read remains absent. stable presentation. resting today, not activated or irritable. continue current mgmt. 04/16: stable presentation. remains a bit more organized and less labile than prior, since increase in abilify dosing. also a bit more tired. T/C moving abilify to HS to prevent daytime sedation. 04/17: lying in bed, calm. does not mention agitation around midnight last night. no complaints or requests. continue current mgmt. continues more organized and less labile. 04/18: MRI brain c/w AD and vascular dementia. start donepezil. remains less labile and irritable since abilify dosing increase. awaiting placement. continue current mgmt. 04/19: appears to be endorsing AH and expressing paranoia re staff today. increase abilify once again, this time with added dose in the evening. otherwise continue current mgmt. 04/20/25: Patient slept for 8 hours, was medication compliant. Denied side effects. However per nursing staff, patient was struggle with taking medication last night. She has sundown symptoms, more irritable in the afternoon and evening. During conversation with this provider, patient reports that she feel irritable but denies anxiety or depression. She said medications do not do anything good. Sucks being in here. Then she is more irritable when we asked about safety concern questions. it Is a bunch of bullshit, I am done talking . However she continued engaged in conversation when this provider review with her regarding Abilify scheduled time of the afternoon dose. She is working on menu at the same time. Per nursing, patient struggle with taking Abilify in the afternoon yesterday, after he she has sundown symptoms. Therefore I will change to 1600 so nursing staff can offer her at around 3 PM. Does not make any paranoid statements. 04/20: tired, resting in the morning. no paranoid delusions expressed. court paperwork completed for affirming HCP. continue current mgmt. 04/22: as for yesterday. reportedly c/o chills, shivering overnight, denies today. afebrile. continue current mgmt. 04/23: continue current tx 04/24: continue current tx 04/25: stable, continue current mgmt. 04/26: no change in presentation. HCP affirmation hearing tomorrow. continue current mgmt. 04/27: no change in presentation. HCP affirmation hearing today. continue current mgmt. 04/28 continue current medications. 04/29 continue tx. 04/30: continue current management and treatment plan. 05/01: continue current management and treatment plan. 05/02: Continue current management and treatment plan. 05/03 continue tx. 05/04 continue tx 05/05 continue tx. 05/06 continue tx. 05/09 continue tx. 05/10 continue tx. 05/11 continue tx. monitor HR. 05/12 continue tx. 05/13 continue tx. monitor HR, expecting some improvement with d/c of aricept, reduction of methimazole. 05/14: continue 05/15: continue 05/16 continue tx. HR better. no bradicardia 05/17 continue tx. 05/18 cnotinue tx. 05/19 continue tx 05/20 continue tx. awaiting placement. 05/21 stable; no issues; ctp 05/23 less episodes of bradycardia. No physical concerns. Sleeping and eating . no psychosis or delusions. continue tx. awaiting placement. 05/24 continue tx. Reason for continued inpatient stay Substantial Risk for: inability to function Time Spent With Patient Time: Total time managing care of this patient today ____ minutes.
[2025-05-24 20:00] VITALS: BP 99/53; PULSE 61; RESP 16; TEMP 36.4; O2SAT 96
[2025-05-25 08:00] VITALS: BP 108/64; PULSE 55; RESP 16; TEMP 36.4; O2SAT 92
--- NOTE | 2025-05-25 17:19 | HO.PSYCHPN ---
Subjective Subjective Date of Service: 05/25/25 Reason For Visit: Bradycardia Subjective Notes: Conditional Voluntary Healthcare Proxy: Yes Interim History: Less episodes of bradycardia, VS stable. Pt slept through the night. She denies any physical concerns. She is taking medications as prescribed. She is pleasant, and with brighter affect. She does like to stay in her room. Visible at times. No SI/HI. No psychosis or delusions. Review of Systems Review of Systems Denies any shortness of breath, chest pain, dizziness, lightheadedness, abdominal pain or discomfort, nausea vomiting or diarrhea Yes all other systems are reviewed and are negative Mental Status Exam Mental Status Exam Narrative: Appearance: casual attire; appropriate , in NAD Behavior: superficially cooperative; isolative Psychomotor: no psychomotor retardation Speech: mostly clear, normal rate/rhythm/volume, spontaneous TP: Goal directed; can be circumstantial TC: feeling good and resting. Mood: good Affect: congruent SI: denies HI: denies VH/AH: no signs Delusions: no overt delusional content but noted confabulation. Insight/judgment: impaired x 2. memory/cog: alert, oriented to place, month and year but not to situation. Significant difficulty remembering events that led to this admission. [facility] Vital Signs (24Hr): Vital Signs - 24 hr 05/24/25 20:00 05/25/25 08:00 Temperature 97.5 F 97.6 F Pulse Rate 61 55 Respiratory Rate 16 16 Blood Pressure 99/53 L 108/64 Pulse Oximetry 96 92 Oxygen Delivery Method Room Air Room Air BMI result Body Mass Index 18.1 Labs 05/13/25 10:05 05/18/25 10:15 Imaging Radiology Impressions: ITS Impressions Thyroid Ultrasound 04/03/25 11:58 IMPRESSION: Heterogeneous hypervascular thyroid gland. No discrete nodules are identified. ACR TI-RADS Guidelines TR1 (0 points): Benign. No follow-up or biopsy required TR2 (2 points): Not Suspicious. No biopsy or follow up indicated TR3 (3 points): Mildly Suspicious. FNA if >= 2.5 cm, Follow if >= 1.5 cm TR4 (4-6 points): Moderately Suspicious. FNA if >= 1.5 cm, Follow if >= 1.0 cm TR5 (>=7 points): Highly Suspicious. FNA if >= 1.0 cm, Follow if >= 0.5 cm Electronically signed by: García Young MD 04/04/2025 07:08 AM EDT RP Abdomen X-Ray 04/05/25 11:25 IMPRESSION: No radiopaque foreign body is identified. Electronically signed by: García Young MD 04/05/2025 11:45 AM EDT RP Chest X-Ray 04/05/25 11:25 IMPRESSION: Clear lungs. No radiopaque foreign body is identified. Electronically signed by: García Young MD 04/05/2025 11:46 AM EDT RP Skull X-Ray 04/05/25 11:25 IMPRESSION: No radiopaque foreign body is identified. Electronically signed by: García Young MD 04/05/2025 11:47 AM EDT RP Brain MRI 04/05/25 11:38 IMPRESSION: 1. No evidence of intracranial hemorrhage, acute infarction, mass effect, or edema. 2. Age advanced cerebral and cerebellar volume loss. Please refer to the above, and the full neuroquantitative report included with the examination. 3. Moderate to severe changes of small vessel ischemia. 4. Crib d'etat appearance of the basal ganglia suggestive of sequela of chronic hypertension. Electronically signed by: Ruddy Moreau MD 04/18/2025 08:28 AM EDT RP Medications Medications Current Medications Acetaminophen (Acetaminophen 325 Mg Tablet) 650 mg PO Q6H PRN PRN Reason: Pain 1-10 or headache Last Admin: 05/25/25 08:40 Dose: 650 mg Acetaminophen/Butalbital/Caffeine (Butalb/Acetamin/Caff 50/325/40 Tablet) 1 tab PO BID PRN PRN Reason: Pain, Moderate(Pain Scale 4-6) Last Admin: 05/23/25 18:41 Dose: 1 tab Al Hydroxide/Mg Hydroxide (Magnesium Hydrox/Alum Hydrox 30 Ml Oral.Susp) 30 ml PO Q6H PRN PRN Reason: Heartburn/Nausea Amlodipine Besylate (Amlodipine Besylate 5 Mg Tablet) 5 mg PO DAILY [facility]; Protocol Last Admin: 05/25/25 08:36 Dose: 5 mg Aripiprazole (Aripiprazole 15 Mg Tablet) 15 mg PO DAILY [facility] Last Admin: 05/25/25 08:37 Dose: 15 mg Aripiprazole (Aripiprazole 5 Mg Tablet) 5 mg PO DAILY@1600 [facility] Last Admin: 05/25/25 16:30 Dose: 5 mg Atorvastatin Calcium (Atorvastatin Calcium 80 Mg Tablet) 80 mg PO DAILY [facility] Last Admin: 05/25/25 08:37 Dose: 80 mg Magnesium Hydroxide (Milk Of Magnesia 30 Ml Oral.Susp) 30 ml PO DAILY PRN PRN Reason: Constipation Methimazole (Methimazole 5 Mg Tablet) 5 mg PO DAILY [facility] Last Admin: 05/25/25 08:37 Dose: 5 mg Mirtazapine (Mirtazapine 15 Mg Tablet) 15 mg PO BEDTIME [facility] Last Admin: 05/24/25 20:15 Dose: 15 mg Nicotine Polacrilex (Nicotine Polacrilex 2 Mg Gum) 4 mg BUCCAL Q2H PRN PRN Reason: Nicotine Cravings Olanzapine (Olanzapine 5 Mg Tablet) 5 mg PO TID PRN PRN Reason: agitation Last Admin: 05/02/25 15:15 Dose: 5 mg Omeprazole (Omeprazole 20 Mg Capsule.Dr) 20 mg PO DAILY@0630 [facility] Last Admin: 05/25/25 06:12 Dose: 20 mg Spironolactone (Spironolactone 25 Mg Tablet) 25 mg PO DAILY [facility]; Protocol Last Admin: 05/25/25 08:37 Dose: 25 mg Trazodone HCl (Trazodone Hcl 25 Mg Halftab) 25 mg PO BEDTIME MRX1 PRN PRN Reason: Insomnia Last Admin: 04/26/25 21:20 Dose: 25 mg Allergies Allergies Allergy/AdvReac Type Severity Reaction Status Date / Time codeine Allergy Intermediate hives Verified 03/28/25 21:43 NSAIDS (Non-Steroidal AdvReac Severe gi bleed Verified 04/05/25 10:40 Anti-Inflamma Assessment & Plan Assessment & Plan (1) MDD (major depressive disorder), recurrent episode, moderate: Status: Acute Code(s): F33.1 - Major depressive disorder, recurrent, moderate (2) Major neurocognitive disorder, due to another medical condition, with behavioral disturbance, severe: Status: Acute Code(s): F02.C18 - Dementia in other diseases classified elsewhere, severe, with other behavioral disturbance (3) Graves disease: Status: Acute Code(s): E05.00 - Thyrotoxicosis with diffuse goiter without thyrotoxic crisis or storm Plan Mrs. Martinez is a 70 year-old woman who was initially brought to [facility] due to weakness, profound lethargy and inability to care for herself. While in the ED, pt presented as agitated, combative and reported SI. Daughter reports pt has been struggling to care for herself (house without hot water, in condemnable condition and pt has not showered in several months). Pt is not able to recall events leading to this admission, despite the fact that she is oriented to month, year and place. We discussed risks, benefits and alternative treatment options. Will lower dose of xanax as pt this morning was more somnolent and lethargic although she had not received xanax. Lowered to 0.5mg po TID. continue effexor er 75mg po daily. Pt noted to have BP elevated but this was one point of care- will continue to monitor. No signs of benzo withdrawal. Pending MOCA/ACL. Will also check B12 (note that although no anemia, MCV was high). Repeat of CMP shows some degree of dehydration (elevated BUN from 14 to 23)- encourage fluids. PLAN 04/04 LFTs trending up, GI following, denies any abdominal pain, no vomiting, afebrile. pt confused as to why she is here, somewhat suspicious about her children wanting to leave her here. Will hold on starting medications until LFTs and bilirubin normalizes. Pending US of gallbladder today. 04/05 pt forgetful from day to day, confabulation with often seems more like blaming her children for doing things behind her back and thinks they are lying when mortgage underwriter explains concern in terms of memory/cog impairments. 04/06 LFTs trending down. Will start abilify for mood/suspiciousness. 04/08 continue tx. 04/09: Continue current regimen and plans. Trial of Fioricet b.i.d. PRN 04/11 increase abilify for mood. reading of MRI with neuroquant- still pending. CAUTION WITH ACETAMINOPHEN AND LFTS. ALSO CAUTION WITH NSAID- not H&H down since admission. She was started on Tapazole 10mg po daily for graves disease- newly dx here. HIDA scan for abdominal pain not completed due to pt declining- may need to reorder if pt presents with abdominal pain or again LFTs elevation. 04/12: stable, demented. asking about discharge home when awaiting placement. MRI c neuroquant pending. stable presentation. continue current mgmt for now. 04/13: poor sleep due to disruptive peer. resting today. no request for discharge. no behavioral issues. continue current mgmt. 04/14: slept 5 hours. somewhat hypomanic today, circumstantial and moderately disorganized. agreeable to stay for the time being, per SW. increase abilify to 15 mg daily for mood stability. call placed to radiology for read on MRI brain done 04/05/25. 04/15: head MRI read remains absent. stable presentation. resting today, not activated or irritable. continue current mgmt. 04/16: stable presentation. remains a bit more organized and less labile than prior, since increase in abilify dosing. also a bit more tired. T/C moving abilify to HS to prevent daytime sedation. 04/17: lying in bed, calm. does not mention agitation around midnight last night. no complaints or requests. continue current mgmt. continues more organized and less labile. 04/18: MRI brain c/w AD and vascular dementia. start donepezil. remains less labile and irritable since abilify dosing increase. awaiting placement. continue current mgmt. 04/19: appears to be endorsing AH and expressing paranoia re staff today. increase abilify once again, this time with added dose in the evening. otherwise continue current mgmt. 04/20/25: Patient slept for 8 hours, was medication compliant. Denied side effects. However per nursing staff, patient was struggle with taking medication last night. She has sundown symptoms, more irritable in the afternoon and evening. During conversation with this provider, patient reports that she feel irritable but denies anxiety or depression. She said medications do not do anything good. Sucks being in here. Then she is more irritable when we asked about safety concern questions. it Is a bunch of bullshit, I am done talking . However she continued engaged in conversation when this provider review with her regarding Abilify scheduled time of the afternoon dose. She is working on menu at the same time. Per nursing, patient struggle with taking Abilify in the afternoon yesterday, after he she has own symptoms. Therefore I will change to 1600 so nursing staff can offer her at around 3 PM. Does not make any paranoid statements. 04/20: tired, resting in the morning. no paranoid delusions expressed. court paperwork completed for affirming HCP. continue current mgmt. 04/22: as for yesterday. reportedly c/o chills, shivering overnight, denies today. afebrile. continue current mgmt. 04/23: continue current tx 04/24: continue current tx 04/25: stable, continue current mgmt. 04/26: no change in presentation. HCP affirmation hearing tomorrow. continue current mgmt. 04/27: no change in presentation. HCP affirmation hearing today. continue current mgmt. 04/28 continue current medications. 04/29 continue tx. 04/30: continue current management and treatment plan. 05/01: continue current management and treatment plan. 05/02: Continue current management and treatment plan. 05/03 continue tx. 05/04 continue tx 05/05 continue tx. 05/06 continue tx. 05/09 continue tx. 05/10 continue tx. 05/11 continue tx. monitor HR. 05/12 continue tx. 05/13 continue tx. monitor HR, expecting some improvement with d/c of aricept, reduction of methimazole. 05/14: continue 05/15: continue 05/16 continue tx. HR better. no bradicardia 05/17 continue tx. 05/18 cnotinue tx. 05/19 continue tx 05/20 continue tx. awaiting placement. 05/21 stable; no issues; ctp 05/23 less episodes of bradycardia. No physical concerns. Sleeping and eating . no psychosis or delusions. continue tx. awaiting placement. 05/24 continue tx. 05/25 continue tx. Reason for continued inpatient stay Substantial Risk for: inability to function Time Spent With Patient Time: Total time managing care of this patient today ____ minutes.
[2025-05-25 20:00] VITALS: BP 115/71; PULSE 56; RESP 16; TEMP 36.2; O2SAT 96
[2025-05-26 08:41] VITALS: BP 188/81; PULSE 80; RESP 16; TEMP 36.5; O2SAT 97
--- NOTE | 2025-05-26 09:44 | P.PNPSI_ITS ---
Subjective Subjective Date of Service: 05/26/25 Reason For Visit: Bradycardia Subjective Notes: Conditional Voluntary Interim History: Less episodes of bradycardia, VS stable. Pt slept through the night. She denies any physical concerns. She is taking medications as prescribed. She is pleasant, and with brighter affect. She does like to stay in her room. Visible at times. No SI/HI. No psychosis or delusions. Review of Systems Review of Systems Denies any shortness of breath, chest pain, dizziness, lightheadedness, abdominal pain or discomfort, nausea vomiting or diarrhea Yes all other systems are reviewed and are negative Mental Status Exam Mental Status Exam Narrative: Appearance: casual attire; appropriate , in NAD Behavior: superficially cooperative; isolative Psychomotor: no psychomotor retardation Speech: mostly clear, normal rate/rhythm/volume, spontaneous TP: Goal directed; can be circumstantial TC: feeling good and resting. Mood: good Affect: congruent SI: denies HI: denies VH/AH: no signs Delusions: no overt delusional content but noted confabulation. Insight/judgment: impaired x 2. memory/cog: alert, oriented to place, month and year but not to situation. Significant difficulty remembering events that led to this admission. MOCA Diagnostics Vital Signs (24Hr): Vital Signs - 24 hr 05/25/25 20:00 05/26/25 08:41 Temperature 97.1 F 97.7 F Pulse Rate 56 80 Respiratory Rate 16 16 Blood Pressure 115/71 188/81 H Pulse Oximetry 96 97 Oxygen Delivery Method Room Air Room Air BMI result Body Mass Index 18.1 Labs 05/13/25 10:05 05/18/25 10:15 Imaging Radiology Impressions: ITS Impressions Thyroid Ultrasound 04/03/25 11:58 IMPRESSION: Heterogeneous hypervascular thyroid gland. No discrete nodules are identified. ACR TI-RADS Guidelines TR1 (0 points): Benign. No follow-up or biopsy required TR2 (2 points): Not Suspicious. No biopsy or follow up indicated TR3 (3 points): Mildly Suspicious. FNA if >= 2.5 cm, Follow if >= 1.5 cm TR4 (4-6 points): Moderately Suspicious. FNA if >= 1.5 cm, Follow if >= 1.0 cm TR5 (>=7 points): Highly Suspicious. FNA if >= 1.0 cm, Follow if >= 0.5 cm Electronically signed by: García Young MD 04/04/2025 07:08 AM EDT RP Abdomen X-Ray 04/05/25 11:25 IMPRESSION: No radiopaque foreign body is identified. Electronically signed by: García Young MD 04/05/2025 11:45 AM EDT RP Chest X-Ray 04/05/25 11:25 IMPRESSION: Clear lungs. No radiopaque foreign body is identified. Electronically signed by: García Young MD 04/05/2025 11:46 AM EDT RP Skull X-Ray 04/05/25 11:25 IMPRESSION: No radiopaque foreign body is identified. Electronically signed by: García Young MD 04/05/2025 11:47 AM EDT RP Brain MRI 04/05/25 11:38 IMPRESSION: 1. No evidence of intracranial hemorrhage, acute infarction, mass effect, or edema. 2. Age advanced cerebral and cerebellar volume loss. Please refer to the above, and the full neuroquantitative report included with the examination. 3. Moderate to severe changes of small vessel ischemia. 4. Crib d'etat appearance of the basal ganglia suggestive of sequela of chronic hypertension. Electronically signed by: Ruddy Moreau MD 04/18/2025 08:28 AM EDT RP Medications Medications Current Medications Acetaminophen (Acetaminophen 325 Mg Tablet) 650 mg PO Q6H PRN PRN Reason: Pain 1-10 or headache Last Admin: 05/25/25 08:40 Dose: 650 mg Acetaminophen/Butalbital/Caffeine (Butalb/Acetamin/Caff 50/325/40 Tablet) 1 tab PO BID PRN PRN Reason: Pain, Moderate(Pain Scale 4-6) Last Admin: 05/23/25 18:41 Dose: 1 tab Al Hydroxide/Mg Hydroxide (Magnesium Hydrox/Alum Hydrox 30 Ml Oral.Susp) 30 ml PO Q6H PRN PRN Reason: Heartburn/Nausea Amlodipine Besylate (Amlodipine Besylate 5 Mg Tablet) 5 mg PO DAILY ROGELIO; Protocol Last Admin: 05/26/25 09:01 Dose: 5 mg Aripiprazole (Aripiprazole 15 Mg Tablet) 15 mg PO DAILY [facility] Last Admin: 05/26/25 09:02 Dose: 15 mg Aripiprazole (Aripiprazole 5 Mg Tablet) 5 mg PO DAILY@1600 [facility] Last Admin: 05/25/25 16:30 Dose: 5 mg Atorvastatin Calcium (Atorvastatin Calcium 80 Mg Tablet) 80 mg PO DAILY [facility] Last Admin: 05/26/25 09:01 Dose: 80 mg Magnesium Hydroxide (Milk Of Magnesia 30 Ml Oral.Susp) 30 ml PO DAILY PRN PRN Reason: Constipation Methimazole (Methimazole 5 Mg Tablet) 5 mg PO DAILY [facility] Last Admin: 05/26/25 09:01 Dose: 5 mg Mirtazapine (Mirtazapine 15 Mg Tablet) 15 mg PO BEDTIME [facility] Last Admin: 05/25/25 20:45 Dose: 15 mg Nicotine Polacrilex (Nicotine Polacrilex 2 Mg Gum) 4 mg BUCCAL Q2H PRN PRN Reason: Nicotine Cravings Olanzapine (Olanzapine 5 Mg Tablet) 5 mg PO TID PRN PRN Reason: agitation Last Admin: 05/02/25 15:15 Dose: 5 mg Omeprazole (Omeprazole 20 Mg Capsule.Dr) 20 mg PO DAILY@0630 [facility] Last Admin: 05/26/25 05:47 Dose: 20 mg Spironolactone (Spironolactone 25 Mg Tablet) 25 mg PO DAILY [facility]; Protocol Last Admin: 05/26/25 09:01 Dose: 25 mg Trazodone HCl (Trazodone Hcl 25 Mg Halftab) 25 mg PO BEDTIME MRX1 PRN PRN Reason: Insomnia Last Admin: 04/26/25 21:20 Dose: 25 mg Allergies Allergies Allergy/AdvReac Type Severity Reaction Status Date / Time codeine Allergy Intermediate hives Verified 03/28/25 21:43 NSAIDS (Non-Steroidal AdvReac Severe gi bleed Verified 04/05/25 10:40 Anti-Inflamma Assessment & Plan Assessment & Plan (1) MDD (major depressive disorder), recurrent episode, moderate: Status: Acute Code(s): F33.1 - Major depressive disorder, recurrent, moderate (2) Major neurocognitive disorder, due to another medical condition, with behavioral disturbance, severe: Status: Acute Code(s): F02.C18 - Dementia in other diseases classified elsewhere, severe, with other behavioral disturbance (3) Graves disease: Status: Acute Code(s): E05.00 - Thyrotoxicosis with diffuse goiter without thyrotoxic crisis or storm Plan Mrs. Martinez is a 70 year-old woman who was initially brought to [facility] due to weakness, profound lethargy and inability to care for herself. While in the ED, pt presented as agitated, combative and reported SI. Daughter reports pt has been struggling to care for herself (house without hot water, in condemnable condition and pt has not showered in several months). Pt is not able to recall events leading to this admission, despite the fact that she is oriented to month, year and place. We discussed risks, benefits and alternative treatment options. Will lower dose of xanax as pt this morning was more somnolent and lethargic although she had not received xanax. Lowered to 0.5mg po TID. continue effexor er 75mg po daily. Pt noted to have BP elevated but this was one point of care- will continue to monitor. No signs of benzo withdrawal. Pending MOCA/ACL. Will also check B12 (note that although no anemia, MCV was high). Repeat of CMP shows some degree of dehydration (elevated BUN from 14 to 23)- encourage fluids. PLAN 04/04 LFTs trending up, GI following, denies any abdominal pain, no vomiting, afebrile. pt confused as to why she is here, somewhat suspicious about her children wanting to leave her here. Will hold on starting medications until LFTs and bilirubin normalizes. Pending US of gallbladder today. 04/05 pt forgetful from day to day, confabulation with often seems more like blaming her children for doing things behind her back and thinks they are lying when insurance underwriter sales explains concern in terms of memory/cog impairments. 04/06 LFTs trending down. Will start abilify for mood/suspiciousness. 04/08 continue tx. 04/09: Continue current regimen and plans. Trial of Fioricet b.i.d. PRN 04/11 increase abilify for mood. reading of MRI with neuroquant- still pending. CAUTION WITH ACETAMINOPHEN AND LFTS. ALSO CAUTION WITH NSAID- not H&H down since admission. She was started on Tapazole 10mg po daily for graves disease- newly dx here. HIDA scan for abdominal pain not completed due to pt declining- may need to reorder if pt presents with abdominal pain or again LFTs elevation. 04/12: stable, demented. asking about discharge home when awaiting placement. MRI c neuroquant pending. stable presentation. continue current mgmt for now. 04/13: poor sleep due to disruptive peer. resting today. no request for discharge. no behavioral issues. continue current mgmt. 04/14: slept 5 hours. somewhat hypomanic today, circumstantial and moderately disorganized. agreeable to stay for the time being, per SW. increase abilify to 15 mg daily for mood stability. call placed to radiology for read on MRI brain done 04/05/25. 04/15: head MRI read remains absent. stable presentation. resting today, not activated or irritable. continue current mgmt. 04/16: stable presentation. remains a bit more organized and less labile than prior, since increase in abilify dosing. also a bit more tired. T/C moving abilify to HS to prevent daytime sedation. 04/17: lying in bed, calm. does not mention agitation around midnight last night. no complaints or requests. continue current mgmt. continues more organized and less labile. 04/18: MRI brain c/w AD and vascular dementia. start donepezil. remains less labile and irritable since abilify dosing increase. awaiting placement. continue current mgmt. 04/19: appears to be endorsing AH and expressing paranoia re staff today. increase abilify once again, this time with added dose in the evening. otherwise continue current mgmt. 04/20/25: Patient slept for 8 hours, was medication compliant. Denied side effects. However per nursing staff, patient was struggle with taking medication last night. She has sundown symptoms, more irritable in the afternoon and evening. During conversation with this provider, patient reports that she feel irritable but denies anxiety or depression. She said medications do not do anything good. Sucks being in here. Then she is more irritable when we asked about safety concern questions. it Is a bunch of bullshit, I am done talking . However she continued engaged in conversation when this provider review with her regarding Abilify scheduled time of the afternoon dose. She is working on menu at the same time. Per nursing, patient struggle with taking Abilify in the afternoon yesterday, after he she has sundown symptoms. Therefore I will change to 1600 so nursing staff can offer her at around 3 PM. Does not make any paranoid statements. 04/20: tired, resting in the morning. no paranoid delusions expressed. court paperwork completed for affirming HCP. continue current mgmt. 04/22: as for yesterday. reportedly c/o chills, shivering overnight, denies today. afebrile. continue current mgmt. 04/23: continue current tx 04/24: continue current tx 04/25: stable, continue current mgmt. 04/26: no change in presentation. HCP affirmation hearing tomorrow. continue current mgmt. 04/27: no change in presentation. HCP affirmation hearing today. continue current mgmt. 04/28 continue current medications. 04/29 continue tx. 04/30: continue current management and treatment plan. 05/01: continue current management and treatment plan. 05/02: Continue current management and treatment plan. 05/03 continue tx. 05/04 continue tx 05/05 continue tx. 05/06 continue tx. 05/09 continue tx. 05/10 continue tx. 05/11 continue tx. monitor HR. 05/12 continue tx. 05/13 continue tx. monitor HR, expecting some improvement with d/c of aricept, reduction of methimazole. 05/14: continue 05/15: continue 05/16 continue tx. HR better. no bradicardia 05/17 continue tx. 05/18 cnotinue tx. 05/19 continue tx 05/20 continue tx. awaiting placement. 05/21 stable; no issues; ctp 05/23 less episodes of bradycardia. No physical concerns. Sleeping and eating . no psychosis or delusions. continue tx. awaiting placement. 05/24 continue tx. 05/25 continue tx. 05/26 continue tx. Reason for continued inpatient stay Substantial Risk for: inability to function Time Spent With Patient Time: Total time managing care of this patient today ____ minutes.
[2025-05-26 10:24] VITALS: BMI 18.3
[2025-05-26 20:00] VITALS: BP 168/87; PULSE 54; RESP 16; TEMP 36.1; O2SAT 95
[2025-05-27 08:21] VITALS: BP 107/69; PULSE 80; RESP 18; TEMP 35.7; O2SAT 95
--- NOTE | 2025-05-27 11:08 | PM.PSYDC ---
DS: Providers Provider Date of Service: 05/27/25 Date of admission: 03/28/25 23:29 Date of discharge: 05/27/25 Primary care physician: Unknown Physician Consults: 03/28/25 21:53 Consult to Hospitalist Routine Comment: Consulting Provider: [facility] Reason For Exam: admission physical 04/01/25 12:59 Consult to Hospitalist Routine Comment: Consulting Provider: [facility] Reason For Exam: right UQ abnominal pain/vomiting 04/01/25 16:36 Consult to Hospitalist Routine Comment: Consulting Provider: [facility] Reason For Exam: elevation of LFTs/rUQ pain 04/02/25 16:43 Consult to Gastroenterology Routine Consulting Provider: [facility] Reason for consultation: odd situation of slight abd pain , elevated lfts, bilirubin +hep c Has provider been notified: No 05/06/25 17:06 Consult to Cardiology Routine Consulting Provider: [facility] Reason for consultation: bradicardia Has provider been notified: No 05/18/25 13:34 Consult to Gastroenterology Routine Consulting Provider: [facility] Reason for consultation: Elevated LFT's without abdominal pain DS: Diagnosis Discharge Diagnosis (1) MDD (major depressive disorder), recurrent episode, moderate: Status: Acute (2) Major neurocognitive disorder, due to another medical condition, with behavioral disturbance, severe: Status: Acute (3) Graves disease: Status: Acute DS: Medications Discharge Medications Home Medications: Previous Rx's ?Medication ?Instructions ?Recorded amlodipine 5 mg tablet 5 mg PO DAILY #30 tabs 05/27/25 aripiprazole 20 mg tablet 20 mg PO DAILY #30 tabs 05/27/25 atorvastatin 80 mg tablet 80 mg PO DAILY #30 tabs 05/27/25 methimazole 5 mg tablet 5 mg PO DAILY #30 tabs 05/27/25 mirtazapine 15 mg tablet 15 mg PO BEDTIME #30 tabs 05/27/25 omeprazole 20 mg capsule,delayed 20 mg PO DAILY@0630 #30 caps 05/27/25 release spironolactone 25 mg tablet 25 mg PO DAILY #30 tabs 05/27/25 Mental Status Exam Mental Status Exam Narrative: Appearance: casual attire; appropriate , in NAD Behavior: superficially cooperative; isolative Psychomotor: no psychomotor retardation Speech: mostly clear, normal rate/rhythm/volume, spontaneous TP: Goal directed; can be circumstantial TC: feeling good and resting. Mood: good Affect: congruent SI: denies HI: denies VH/AH: no signs Delusions: no overt delusional content but noted confabulation. Insight/judgment: impaired x 2. memory/cog: alert, oriented to place, month and year but not to situation. Significant difficulty remembering events that led to this admission. MOCA Data Data Completed and Pending Completed studies during hospitalization [Text1]: 04/06/25 09:47 Urine clean catch Urine Culture - Final 04/01/25 17:15 Urine clean catch - Clean Catch Midstream Urine Culture - Final Imaging Diagnostic Imaging Impressions Thyroid Ultrasound 04/03/25 11:58 IMPRESSION: Heterogeneous hypervascular thyroid gland. No discrete nodules are identified. ACR TI-RADS Guidelines TR1 (0 points): Benign. No follow-up or biopsy required TR2 (2 points): Not Suspicious. No biopsy or follow up indicated TR3 (3 points): Mildly Suspicious. FNA if >= 2.5 cm, Follow if >= 1.5 cm TR4 (4-6 points): Moderately Suspicious. FNA if >= 1.5 cm, Follow if >= 1.0 cm TR5 (>=7 points): Highly Suspicious. FNA if >= 1.0 cm, Follow if >= 0.5 cm Electronically signed by: García Young MD 04/04/2025 07:08 AM EDT RP Abdomen X-Ray 04/05/25 11:25 IMPRESSION: No radiopaque foreign body is identified. Electronically signed by: García Young MD 04/05/2025 11:45 AM EDT RP Chest X-Ray 04/05/25 11:25 IMPRESSION: Clear lungs. No radiopaque foreign body is identified. Electronically signed by: García Young MD 04/05/2025 11:46 AM EDT RP Skull X-Ray 04/05/25 11:25 IMPRESSION: No radiopaque foreign body is identified. Electronically signed by: García Young MD 04/05/2025 11:47 AM EDT Brain MRI 04/05/25 11:38 IMPRESSION: 1. No evidence of intracranial hemorrhage, acute infarction, mass effect, or edema. 2. Age advanced cerebral and cerebellar volume loss. Please refer to the above, and the full neuroquantitative report included with the examination. 3. Moderate to severe changes of small vessel ischemia. 4. Crib d'etat appearance of the basal ganglia suggestive of sequela of chronic hypertension. Electronically signed by: Ruddy Moreau MD 04/18/2025 08:28 AM EDT DS: Summary Hospital Course Hospital Course: Mrs. Gustafson is a 70 year-old woman who was brought to [facility] due to weakness, profound lethargy and inability to care for herself. While at the hospital, pt noted to be combative when staff attempting to provide care and made several statements related to wanting to . Per records, pt had reported she wanted to jump off bridge and other times had reported wanting to OD on medications. Pt described to be oriented to person and place but not to situation. Pertinent labs completed include CBC mostly unremarkable without leukocytosis, no anemia (although noted elevated MCV- will check B12), CMP without electrolyte abnormality, BUN 14, Cr 0.5, LFTs wnl. Noted TSH <0.01 with normal free T4 1.5, and free T3 4.1. Utox was positive for benzodiazepine. UA without signs of UTI, grossly unremarkable. On the unit, pt has been mostly in bed. She does have a very strong smell of urine and appears somewhat disheveled. She reports she does not know why she is here and she is upset. She reports her children are helping her sell the house but she is resentful that they have not taken her to their house in the meantime. When asked about if she has concerns about her ability to function, pt reports she does not have any concerns but agrees with moving out. She does report one neighbor may have been stealing from her. She adamantly denies suicidal or homicidal ideation. She reports I never threatened to kill myself, never! This comic writer shared with patient that at other hospital she seemed to be somewhat agitated and needed medication to calm down. Pt reports she does not remember any of this. When asked about depression, she states the only feeling I have right now is being shit on by my children. She denies any recent psychiatric admission nor symptoms of depression. She reports remote hx of alcohol use but reports she has not used alcohol in more than 35 years. No s/s of psychosis or delusions. Collateral information gathered from her daughter, Harriet Heredia who reports pt has been presenting as more depressed in the past year. She reports she suspects her mother has not showered in over a year. She reports recently she went with her brother and stayed at her house. She reports house is a condemnable condition- including not having hot water, trash everywhere. Daughter reports that they check her bank statements and someone has been taking money from her mother. They suspect is neighbor who has access to pt's debit card. Daughter reports that pt was psychiatrically admitted back in 12/2024 for depression and also suicidal statements at [facility] but despite their concerns in terms of memory and cognitive they were told mother was ready for discharge. To daughter's knowledge, there hasn't been formal testing of pt's memory/cognitive. 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 Daughter reports although pt has hx of alcohol use, she has been in remission for several years. Daughter is concern that patient may not be taking medications as prescribed due to memory issues and not addiction issues. Past Psychiatric History: Inpatient: [facility] 12/2024 (depression and SI) OP: none Past medication trials: xanax, effexor Past suicide attempts: patient and daughter denied hx of. HOSPITAL COURSE On the unit, pt was admitted on sect 12b. She presented as irritable, labile at times. She was noted to be very forgetful, not able to retain information given from day o day. Family had reported concerns in terms of her ability to care for herself and increase forgetfulness. We completed memory and cognitive assessments including MOCA/ ACL and MRI with neuroquant. MOCA scored was 14/30 with impairments in language fluency, naming, orientation and recall. NEUROQUANTATIVE findings (when compared with age-matched controls): Whole brain volume correlates with 42% normative percentile. Hippocampal volume correlates with 5% normative percentile. (Hippocampal Occupancy Score correlates with 1% normative percentile.) Enterorhinal cortex volume correlates with 80% normative percentile. Temporal cortex volume correlates with 32% normative percentile. Parietal cortex volume correlates with 71% normative percentile. Frontal cortex volume correlates with 37% normative percentile. Occipital cortex volume correlates with 72% normative percentile. 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 In terms of her mood, she was started on abilify with help with some of paranoid ideas she had towards family and with mood stabilization. She was taken off venlafaxine as it seemed to be more agitating than helping with mood along with increasing SBP. She was tapered off xanax, which she tolerated well without any medical complications. She was trialon aricept but underlying bradycardia worsened. She was taken off and HR has been more consistently stable. She was seen by cardiology due to bradycardia- which is mostly asymptomatic at this point. Medical: Graves disease: newly dx Thyroid ultrasound without nodules but noted to be hypervascular, TSI and TRAb elevated. Free T3 0.72, Free T4 2.3 Normalized. On the low end of normal. Decrease Methimazole to 5 mgs daily Will need endocrinology follow up outpatient LFTs elevations: Harriet had episodes of abdominal pain. Exams showed elevation in LFTs. Seen by GI. Recommendation if pain recurs or LFTs start to up trend, low threshold to reorder HIDA scan. Follow up OP. HTN- on amlodipine HF- stable on spironolactone. Status at Discharge Cognitive/behavioral status at discharge: Pt with brighter affect. No labile mood. No SI/HI. No aggression towards self or others. She is sleeping and eating well. No acute psychosis or delusions. Functional status at discharge: independent ambulation Overall status at discharge: patient is back to baseline Time Spent with Patient Time attestation: Total time managing care of this patient today _45___ minutes. Time spent: Greater than 30 minutes Discharge Plan Discharge Anticipated Discharge Date/Time: 05/27/25 11:00 Patient Disposition: Home, Self-Care Discharge Diagnosis: Major Neurocognitive Disorder AD Referrals: Dr Dent [facility] [Other] - 07/04/25 3:00 pm Referral Note: Your first PCP appointment is scheduled for 07/04/25 at 3PM. [facility] [Other] - 06/22/25 10:00 am Referral Note: Your first appointment with [facility] for psychiatry with AYESHA Downey is scheduled for 06/22/25 at 10AM in office. Please arrive 10 minutes early. [facility] [Other] - 3-5 Days Referral Note: Referral placed for Home care and elder services will call to arrange home visit for assessment within 72 hours of discharge. Discharge Medications: New atorvastatin 80 mg Tablet 80 mg PO DAILY Qty: 30 0RF amlodipine 5 mg Tablet 5 mg PO DAILY Qty: 30 0RF Protocol: Hold for SBP< HOLD for SBP < : 90 spironolactone 25 mg Tablet 25 mg PO DAILY Qty: 30 0RF Protocol: Hold for SBP< HOLD for SBP < : 90 methimazole 5 mg Tablet 5 mg PO DAILY Qty: 30 0RF omeprazole 20 mg Capsule,Delayed Release(Dr/Ec) 20 mg PO DAILY@0630 Qty: 30 0RF mirtazapine 15 mg Tablet 15 mg PO BEDTIME Qty: 30 0RF aripiprazole 20 mg tablet 20 mg PO DAILY Qty: 30 0RF Discontinued alprazolam 1 mg Tablet 1 mg PO TID metoprolol succinate [Toprol XL] 25 mg Tablet Extended Release 24 Hr 25 mg PO DAILY esomeprazole magnesium [Nexium] 20 mg Capsule,Delayed Release(Dr/Ec) 20 mg PO DAILY rosuvastatin [Crestor] 40 mg Tablet 40 mg PO DAILY spironolactone 25 mg Tablet 25 mg PO DAILY venlafaxine 75 mg Tablet Extended Release 24hr 75 mg PO QAM Discharge Orders: Discharge Order (Routine); Ordered 05/27/25 Ordered By: Ronit Agrawal Diet: Regular diet Activity on Discharge: As tolerated Stand Alone Forms: Patient Portal Discharge page Print Language: Bulgarian Care Plan Goals: 1. Maintain mood 2. No aggression towards self or others. Health Concerns: Follow up with PCP. She also needs to follow up with endocrinology newly dx Graves Disease. Plan of Treatment: 1. Medications need to be manage and administered by family or VNA. Pt not able to manage her own medications. 2. Go to nearest ED or call 911 in event of emergency. Assessment: Pt with brighter affect. No SI/HI. No psychosis or delusions. Sleeping and eating well. Discharge Date/Time: 05/27/25 14:11
== END 2025-05-27 14:11 | disposition home or self-care (01) | DRG 885 ==
PROVIDERS: Internal Medicine; Nurse Practitioner Family; Psychiatry & Neurology Psychiatry; Social Worker; Student in an Organized Health Care Education/Training Program; Admitting Provider Psychiatry & Neurology Psychiatry; Visit Provider Psychiatry & Neurology Psychiatry
DX: F33.1 Major depressive disorder, recurrent, moderate (principal); I50.32 Chronic diastolic (congestive) heart failure; F02.C18 Dementia in other diseases classified elsewhere, severe, with other behavioral disturbance; F17.210 Nicotine dependence, cigarettes, uncomplicated; Z71.6 Tobacco abuse counseling; E05.00 Thyrotoxicosis with diffuse goiter without thyrotoxic crisis or storm; G30.9 Alzheimer's disease, unspecified; I25.10 Atherosclerotic heart disease of native coronary artery without angina pectoris; H66.91 Otitis media, unspecified, right ear; I25.2 Old myocardial infarction; I11.0 Hypertensive heart disease with heart failure; Z86.19 Personal history of other infectious and parasitic diseases; Z79.899 Other long term (current) drug therapy
CPT/HCPCS: 36415; 70250; 70551; 71045; 74018; 76377; 76536; 76705; 80053; 80061; 81596; 82306; 82607; 82746; 83036; 83520; 83690; 84439; 84443; 84445; 84481; 85025; 86704; 86706; 86709; 86803; 87086; 87340; 87522; 93005; 97162

== ENCOUNTER 2025-03-28 23:29 | Outpatient (BNV) | payer OTHER, SELFPAY | END 2025-05-13 09:32 | PROVIDERS: Admitting Provider Psychiatry & Neurology Psychiatry; Visit Provider Internal Medicine Cardiovascular Disease | DX: I51.7 Cardiomegaly (principal); I49.9 Cardiac arrhythmia, unspecified | CPT/HCPCS: 93010 ==

== ENCOUNTER 2025-03-28 23:29 | Outpatient (BNV) | payer OTHER, SELFPAY | END 2025-03-29 10:20 | PROVIDERS: Admitting Provider Psychiatry & Neurology Psychiatry; Visit Provider Internal Medicine Cardiovascular Disease | DX: I48.91 Unspecified atrial fibrillation (principal); I51.7 Cardiomegaly | CPT/HCPCS: 93010 ==

== ENCOUNTER 2025-03-28 23:29 | Outpatient (BNV) | payer OTHER, SELFPAY | END 2025-04-03 11:58 | PROVIDERS: Admitting Provider Psychiatry & Neurology Psychiatry; Visit Provider Radiology Diagnostic Radiology | DX: E07.89 Other specified disorders of thyroid (principal) | CPT/HCPCS: 76536 ==

== ENCOUNTER → 2025-03-28 23:29 | Outpatient (BNV) | payer OTHER, SELFPAY | PROVIDERS: Admitting Provider Psychiatry & Neurology Psychiatry; Visit Provider Internal Medicine Cardiovascular Disease | DX: R00.1 Bradycardia, unspecified (principal) | CPT/HCPCS: 99222 ==

== ENCOUNTER → 2025-03-28 23:29 | Outpatient (BNV) | payer OTHER, SELFPAY | PROVIDERS: Admitting Provider Psychiatry & Neurology Psychiatry; Visit Provider Student in an Organized Health Care Education/Training Program | DX: Z02.2 Encounter for examination for admission to residential institution (principal) | CPT/HCPCS: 99429 ==

== ENCOUNTER → 2025-03-28 23:29 | Outpatient (BNV) | payer OTHER, SELFPAY | PROVIDERS: Admitting Provider Psychiatry & Neurology Psychiatry; Visit Provider Social Worker | DX: F33.1 Major depressive disorder, recurrent, moderate (principal); R41.89 Other symptoms and signs involving cognitive functions and awareness | CPT/HCPCS: 90792 ==

== ENCOUNTER → 2025-03-28 23:29 | Outpatient (BNV) | payer MEDICARE, SELFPAY | PROVIDERS: Admitting Provider Psychiatry & Neurology Psychiatry; Visit Provider Internal Medicine | DX: R79.89 Other specified abnormal findings of blood chemistry (principal); R10.9 Unspecified abdominal pain | CPT/HCPCS: 99222 ==